=== PATIENT | male | born 1940 | race Caucasian/White ===

== ENCOUNTER 2017-12-29 14:00 | Outpatient (RCR) | payer MEDICARE, OTHER, SELFPAY | END 2018-01-08 14:50 | LOC: CAR 14:00 | PROVIDERS: Visit Provider Internal Medicine Cardiovascular Disease | DX: Z95.2 Presence of prosthetic heart valve (principal) | CPT/HCPCS: 93798 ==

== ENCOUNTER 2018-05-18 12:33 | Emergency (ER) | payer MEDICARE, OTHER, SELFPAY ==
[2018-05-18 12:48] VITALS: BP 131/80; PULSE 74; RESP 16; TEMP 36.6; O2SAT 97; BMI 29.1
--- NOTE | 2018-05-18 13:19 | DI.RAD.S_ITS ---
PROCEDURE: XR KNEE RT 3V INDICATIONS: pain, swelling TECHNIQUE: 3 views of the knee were acquired. COMPARISON: None. FINDINGS: Bones: No fractures or dislocations. No suspicious bony lesions. The femorotibial joint spaces are relatively well-preserved. On the sunrise view, there is moderate to severe lateral patellofemoral joint space narrowing seen. Osteophyte formation can be seen along the margins of the patella. There is lateral subluxation of the patella seen. Soft tissues: There is a moderate to prominent joint effusion. No suspicious soft tissue calcifications. IMPRESSION: Focal patellofemoral joint degenerative change. Moderate joint effusion. Dictated by: Tejinder Clement M.D. on 05/18/2018 at 12:36 Approved by: Tejinder Clement M.D. on 05/18/2018 at 12:36
[2018-05-18 13:52] LABS: Add Manual Diff / Slide Review NO; Basophils Percent Auto 0.6 % (0-2); Eosinophils Percent Auto 4.3 % (2-4); Hematocrit 35.1 % (41-53); Hemoglobin 11.5 g/dL (13.5-17.5); Lymphocytes Percent Auto 23.1 % (25-40); Mean Corpuscular HGB Conc 32.6 % (30-36); Mean Corpuscular Volume 85.7 fL (80-100); Monocytes Percent Auto 12.3 % (3-14); Neutrophils Absolute Auto 2800 /uL (3000-5900); Neutrophils Percent Auto 59.7 % (50-75); Platelet Count 121 X10^3/uL (150-400); Red Cell Distribution Width 15.4 % (11.6-14.8); White Blood Cell Count 4.7 X10^3/uL (4.5-11.0)
[2018-05-18 14:09] LABS: BUN Creatinine Ratio 15.6 (6-22); Blood Urea Nitrogen 14 mg/dL (9-20); Carbon Dioxide 34 mmol/L (22-32); Chloride 98 mmol/L (98-107); Estimated Glomerular Filt Rate > 60.0 mL/min (>60); Glucose 113 mg/dL (80-110); HEMOLYSIS < 15 (0-50); Potassium 4.2 mmol/L (3.4-5.1); Sodium 142 mmol/L (137-145); Uric Acid 5.4 mg/dL (3.5-8.5)
[2018-05-18 14:13] LABS: C-Reactive Protein Quant < 0.5 mg/dL (<1.0)
[2018-05-18 14:27] LABS: Erythrocyte Sedimentation Rate 10 MM/HR (0-15)
--- NOTE | 2018-05-18 15:45 | ED.EXTPRO ---
HPI - Extremity Problem General Chief complaint: Extremity Problem,Nontraumatic Stated complaint: R KNEE SWELLING/PAINFUL Time Seen by Provider: 05/18/18 13:00 Source: patient Mode of arrival: ambulatory Limitations: no limitations History of Present Illness HPI Narrative: 77M nonsmoker presents with R knee pain and swelling in the abscence of injury for the past few days. He denies fever or chills. He takes no blood thinners. Related Data Home Medications Medication Instructions Recorded Confirmed albuterol sulfate [Proventil HFA] 1 puff INH PRN PRN #0 03/22/17 05/18/18 alfuzosin 10 mg PO QPM #0 03/22/17 05/18/18 mesalamine [Pentasa] 1,000 mg PO BID #0 03/24/17 05/18/18 calcium carbonate-vitamin D3 3 tab PO DAILY #0 03/31/17 05/18/18 ascorbic acid (vitamin C) 500 mg PO DAILY 05/18/18 05/18/18 aspirin 81 mg PO DAILY 05/18/18 05/18/18 carvedilol 12.5 mg PO DAILY 05/18/18 05/18/18 carvedilol 25 mg PO QPM 05/18/18 05/18/18 cholecalciferol (vitamin D3) 2,000 unit PO DIRECTED 05/18/18 05/18/18 [Vitamin D3] cyclobenzaprine 10 mg PO PRN PRN 05/18/18 05/18/18 eplerenone 25 mg PO DAILY 05/18/18 05/18/18 ferrous sulfate 325 mg PO BID 05/18/18 05/18/18 finasteride 5 mg PO DAILY 05/18/18 05/18/18 folic acid 1 mg PO DAILY 05/18/18 05/18/18 furosemide 40 mg PO QPM 05/18/18 05/18/18 furosemide 80 mg PO DAILY 05/18/18 05/18/18 loratadine 10 mg PO DAILY 05/18/18 05/18/18 nitroglycerin [Nitrostat] 0.4 mg SUBLINGUAL Q5-15M PRN 05/18/18 05/18/18 omeprazole 20 mg PO DAILY 05/18/18 05/18/18 potassium chloride 20 meq PO DAILY 05/18/18 05/18/18 simvastatin 20 mg PO BID 05/18/18 05/18/18 sodium fluoride-pot nitrate 1 applic DENTAL QPM 05/18/18 05/18/18 tramadol 50 mg PO Q6H 05/18/18 05/18/18 warfarin 7.5 mg PO TUTH 05/18/18 05/18/18 warfarin [Coumadin] 5 mg PO SUMOWEFRSA 05/18/18 05/18/18 Allergies Allergy/AdvReac Type Severity Reaction Status Date / Time ibuprofen Allergy Mild NOT GOOD Verified 05/18/18 12:48 FOR STOMACH BLEEDING iodine Allergy Mild UNKNOWN Verified 05/18/18 12:48 Sulfa (Sulfonamide Allergy Mild BURNED A Verified 05/18/18 12:48 Antibiotics) HOLE THRU INTESTINES thallium-201 Allergy Mild BREAKS OUT Verified 05/18/18 12:48 IN BLOTCHES AND ITCHING warfarin Allergy Mild FEELS LIKE Verified 05/18/18 12:48 CLIMBING THE MURRAY. Review of Systems Review of Systems All systems reviewed & are unremarkable except as noted in HPI and below Constitutional Denies chills, Denies fever(s), Denies lethargy and Denies weakness Eyes Denies change in vision, Denies eye discharge, Denies irritation and Denies loss of vision ENT Ears, Nose, Mouth, and Throat: Denies change in voice, Denies neck pain and Denies sore throat Cardiovascular Denies chest pain, Denies irregular heart rhythm, Denies lightheadedness, Denies palpitations, Denies dyspnea, Denies dyspnea on exertion and Denies orthopnea Respiratory Denies cough, Denies dyspnea, Denies dyspnea on exertion and Denies wheezing Gastrointestinal Gastrointestinal: Denies abdominal pain, Denies change in bowel habits, Denies diarrhea, Denies nausea and Denies vomiting Genitourinary Denies hematuria, Denies flank pain, Denies urinary incontinence and Denies urinary urgency Musculoskeletal Reports joint swelling, Reports limited range of motion and Denies neck pain Integumentary/Breasts Denies pruritus, Denies erythema, Denies rash and Denies wounds Neurologic Denies confusion, Denies loss of vision and Denies weakness Psychiatric Denies anxiety, Denies confusion, Denies depression, Denies homicidal ideation and Denies suicidal ideation Endocrine Denies palpitations Hematologic/Lymphatic Denies easy bruising Allergic/Immunologic Denies wheezing PFSH Social History Smoking Status: Never smoker Exam Narrative Exam Narrative: GEN: AOx3 and in mild distress EYES: Pupils are equal, round, and reactive to light and accommodation. Extraoccular muscles are intact bilaterally. There is no subconjunctival hemorrhage or exudate. CHEST: Lungs are clear to auscultation bilaterally and free of wheezes, rales, or rhonchi. Heart rate is regular rhythm, there are no murmurs, clicks, rubs, or gallops. There is no chest wall tenderness. ABD: Abdomen is soft and nontender. There is no guarding or rebound. Bowel sounds are normal in all 4 quadrants. There is no mass or organomegaly. EXT: Right knee with large effusion, no redness or warmth. Patient has full range of motion at the knee. No obvious sign of injury or ligamentous instability SKIN: Warm, pink, and dry. No erythema or rash Initial Vital Signs Initial Vital Signs: Vital Signs Temperature 97.9 F 05/18/18 12:48 Pulse Rate 74 05/18/18 12:48 Respiratory Rate 16 05/18/18 12:48 Blood Pressure 131/80 05/18/18 12:48 Pulse Oximetry 97 05/18/18 12:48 Procedures Joint Aspiration Joint Asp./Inject. 1: Time Out Performed: No Side of body: right Joint Aspirated: knee Ultrasound Guidance: No Skin Prep: Chlorhexidine Local Anesthetic: lidocaine 1% and bupivacaine 0.5% Amount of anesthesia used (mL): 6 Needle Size Used: 18G Fluid Obtained: bloody Total fluid obtained (mL): 110 Patient Tolerated Procedure: Well Course Orders Ordered: ED Orders 05/18/18 13:19 XR knee RT 3V Stat 05/18/18 13:42 Basic Metabolic Panel Stat C-Reactive Protein Quant Stat Complete Blood Count AUTO DIFF Stat Erythrocyte Sedimentation Rate Stat Uric Acid Stat 05/18/18 15:35 Body Fluid Culture Stat Cell Count w Diff Body Fluid Stat Crystals Body Fluid Stat 05/18/18 16:28 CT LE RT wo con Stat Discontinued Medications Hydrocodone Bitart/Acetaminophen ([place] 5/325) 1 tab PO NOW ONE Stop: 05/18/18 15:55 Last Admin: 05/18/18 16:34 Dose: 1 tab Consultations Consultation #1: case discussed with ortho (Dr. Carmona). Painful, swollen knee without trauma. Hemarthrosis, no blood thinners. He recommends CT to rule out occult fracture Vital Signs - 8 hr 05/18/18 12:48 05/18/18 17:01 Temperature 97.9 F Pulse Rate 74 63 Respiratory Rate 16 16 Blood Pressure 131/80 Blood Pressure [Left Arm] 123/76 Pulse Oximetry 97 95 MDM - Extremity (Nontraumatic) Lab Data Result diagrams: 05/18/18 13:42 05/18/18 13:42 Lab Results 05/18/18 05/18/18 05/18/18 Range/Units 13:42 13:42 15:35 WBC 4.7 (4.5-11.0) X10^3/uL RBC 4.10 L (4.5-5.9) X10^6/uL Hgb 11.5 L (13.5-17.5) g/dL Hct 35.1 L (41-53) % MCV 85.7 (80-100) fL MCH 28.0 (26-34) PG MCHC 32.6 (30-36) % RDW 15.4 H (11.6-14.8) % Plt Count 121 L (150-400) X10^3/uL Neut % (Auto) 59.7 (50-75) % Lymph % (Auto) 23.1 L (25-40) % Piatt % (Auto) 12.3 (3-14) % Eos % (Auto) 4.3 H (2-4) % Baso % (Auto) 0.6 (0-2) % Neut # (Auto) 2800 L (8021-4888) /uL ESR 10 (0-15) MM/HR Sodium 142 (137-145) mmol/L Potassium 4.2 (3.4-5.1) mmol/L Chloride 98 (98-107) mmol/L Carbon Dioxide 34 H (22-32) mmol/L BUN 14 (9-20) mg/dL Creatinine 0.90 (0.66-1.25) mg/dL Estimated GFR > 60.0 (>60) mL/min BUN/Creatinine Ratio 15.6 (6-22) Glucose 113 H (80-110) mg/dL Uric Acid 5.4 (3.5-8.5) mg/dL Calcium 9.0 (8.4-10.2) mg/dL C-Reactive Protein < 0.5 (<1.0) mg/dL Fluid Color Bloody Fluid Appearance Turbid Fluid RBC 5987622 /uL Fld Tot Nucleated Cell 1835 /uL Fluid Polynuclear WBCs 50 % Fluid Mononuclear WBCs 44 % Fluid Eosinophils 6 % Fluid Other Cells 0 % Body Fluid Clot No clots present Imaging Data Knee Xray: Radiologist's impression: [address] [address] XRay Report Signed Patient: Tramaine Medeiros LMR#: [id number] : 9Acct:[id number] Age/Sex: 77 / MDate of Service: 05/18/18 Loc: ED Accession Number: [id number] Procedure: XR knee RT 3V Ordering Provider: Nigel Alvarado D.O. PROCEDURE: XR KNEE RT 3V INDICATIONS: pain, swelling TECHNIQUE: 3 views of the knee were acquired. COMPARISON: None. FINDINGS: Bones: No fractures or dislocations. No suspicious bony lesions. The femorotibial joint spaces are relatively well-preserved. On the sunrise view, there is moderate to severe lateral patellofemoral joint space narrowing seen. Osteophyte formation can be seen along the margins of the patella. There is lateral subluxation of the patella seen. Soft tissues: There is a moderate to prominent joint effusion. No suspicious soft tissue calcifications. IMPRESSION: Focal patellofemoral joint degenerative change. Moderate joint effusion. Dictated by: Tejinder Clement M.D. on 05/18/2018 at 12:36 Approved by: Tejinder Clement M.D. on 05/18/2018 at 12:[address]: Radiologist's impression: [facility] DATE TYPE STATUS AUTHOR Hx 05/18/18 16:28 Ezio Calvo 05/18/18 13:19 Tejinder ClementDestinTramaine L 77, M0 1940 DEP ER, ED - [facility] ED: R13 165.1cm 79.379kg BSA: 1.87m? BMI: 29.1kg/m? Extremity Problem,Nontraumatic Search Chart ibuprofen NOT GOOD FOR STOMACH BLEEDING iodine UNKNOWN Sulfa (Sulfonamide Antibiotics) BURNED A HOLE THRU INTESTINES thallium-201 BREAKS OUT IN BLOTCHES AND ITCHING warfarin FEELS LIKE CLIMBING THE MURRAY. ONSET Today 17:[address] [address] [address] Scan Report Signed Patient: Tramaine Medeiros LMR#: [id number] : 9Acct:[id number] Age/Sex: 77 / MDate of Service: 05/18/18 Loc: ED Accession Number: [id number] Procedure: CT LE RT wo con Ordering Provider: Nigel Alvarado D.O. PROCEDURE: CT LE RT WO CON INDICATIONS: painful swollen R knee, large hemarthrosis, per ortho TECHNIQUE: Noncontrast 1-1.5 mm axial sections acquired from the mid-patella to the proximal tibia, with coronal and sagittal reformats. COMPARISON: [facility], CR, XR KNEE RT 3V, 05/18/2018, 13:23. FINDINGS: Image quality: Diagnostic Bones: There is no acute fracture, dislocation, or suspicious osseous lesion. The bone mineralization is slightly decreased. There are moderate to severe degenerative changes identified involving the right knee, most pronounced within the patellofemoral compartment with areas of bony remodeling, subchondral sclerosis, and degenerative cystic change. Soft tissues: There is a large knee joint effusion, which is noted to contain a small amount of air. 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 Moderate edema about the anterior aspect of the knee is identified. Please not that the ligamentous, tendinous, and cartilaginous structures of the knee are not adequately evaluated on CT. The anterior cruciate ligament may be slightly thickened, but is not adequately evaluated. No soft tissue masses or fluid collections are evident. There is vascular atherosclerosis involving the arteries about the knee. IMPRESSION: 1. Moderate to severe degenerative changes of the right knee without acute fracture evident. 2. Moderate to large knee joint effusion, containing air. If the patient has not had a recent joint injection/aspiration, this may be a sign for infectious synovitis and clinical correlation is recommended. 3. 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 4. Subcutaneous edema about the anterior margin of the knee. Dictated by: Ezio Calvo M.D. on 05/18/2018 at 15:55 Approved by: Ezio Calvo M.D. on 05/18/2018 at 16:00 [facility] Narrative Medical decision making narrative: 77-year-old male presents with painful swollen knee in the absence of an injury. Labs are unremarkable and he has a large bloody effusion with over 100 cc blood removed. Hemarthrosis with suggest ACL or tibial plateau involvement but patient story and exam are not consistent nor is x-ray or CT, keeping in mind neither will demonstrate ACL injury with much accuracy. 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 Let them know you were seen in the Emergency Department and that we ask that you be seen in follow up *Return to ER if you should have any new, worsening or concerning symptoms, such as [increasing pain or bleeding ] Prescriptions: No Action albuterol sulfate [Proventil HFA] 90 MCG/PUFF HFA aerosol inhaler 1 puff INH PRN PRN (Reason: Shortness Of Breath) Qty: 0 RF: 0 alfuzosin 10 MG tablet extended release 24 hr 10 mg PO QPM Qty: 0 RF: 0 mesalamine [Pentasa] 500 MG capsule, extended release 1,000 mg PO BID Qty: 0 RF: 0 calcium carbonate-vitamin D3 500-100 mg-unit Tablet,Chewable 3 tab PO DAILY Qty: 0 RF: 0 warfarin [Coumadin] 5 mg tablet 5 mg PO SUMOWE RF: 0 furosemide 40 MG tablet 80 mg PO DAILY RF: 0 cyclobenzaprine 10 mg Tablet 10 mg PO PRN PRN (Reason: Spasms) RF: 0 furosemide 40 mg Tablet 40 mg PO QPM RF: 0 carvedilol 25 mg Tablet 12.5 mg PO DAILY RF: 0 carvedilol 25 mg Tablet 25 mg PO QPM RF: 0 tramadol 50 mg Tablet 50 mg PO Q6H RF: 0 simvastatin 40 mg Tablet 20 mg PO BID RF: 0 ferrous sulfate 325 mg (65 mg iron) Tablet 325 mg PO BID RF: 0 ascorbic acid (vitamin C) 500 mg Tablet,Chewable 500 mg PO DAILY RF: 0 nitroglycerin [Nitrostat] 0.4 mg Tablet, Sublingual 0.4 mg SUBLINGUAL Q5-15M PRN (Reason: Chest Pain) RF: 0 folic acid 1 mg Tablet 1 mg PO DAILY RF: 0 finasteride 5 mg Tablet 5 mg PO DAILY RF: 0 loratadine 10 mg Tablet 10 mg PO DAILY RF: 0 sodium fluoride-pot nitrate 1.1-5 % Paste 1 applic Dental QPM RF: 0 omeprazole 20 mg Tablet,Delayed Release (Dr/Ec) 20 mg PO DAILY RF: 0 cholecalciferol (vitamin D3) [Vitamin D3] 2,000 unit Capsule 2,000 unit PO DIRECTED RF: 0 potassium chloride 20 mEq Tablet Extended Release 20 meq PO DAILY RF: 0 aspirin 81 MG tablet,delayed release (DR/EC) 81 mg PO DAILY RF: 0 eplerenone 25 mg Tablet 25 mg PO DAILY RF: 0 warfarin 5 mg tablet 7.5 mg PO RUST RF: 0 Referrals: Trinity Carmona MD [Physician] -
--- NOTE | 2018-05-18 15:48 | ED_ITS ---
HPI - Extremity Problem General Chief complaint: Extremity Problem,Nontraumatic Stated complaint: R KNEE SWELLING/PAINFUL Time Seen by Provider: 05/18/18 13:00 Source: patient Mode of arrival: ambulatory Limitations: no limitations History of Present Illness HPI Narrative: 77M nonsmoker presents with R knee pain and swelling in the abscence of injury for the past few days. He denies fever or chills. He takes no blood thinners. Related Data Home Medications Medication Instructions Recorded Confirmed albuterol sulfate [Proventil HFA] 1 puff INH PRN PRN #0 03/22/17 05/18/18 alfuzosin 10 mg PO QPM #0 03/22/17 05/18/18 mesalamine [Pentasa] 1,000 mg PO BID #0 03/24/17 05/18/18 calcium carbonate-vitamin D3 3 tab PO DAILY #0 03/31/17 05/18/18 ascorbic acid (vitamin C) 500 mg PO DAILY 05/18/18 05/18/18 aspirin 81 mg PO DAILY 05/18/18 05/18/18 carvedilol 12.5 mg PO DAILY 05/18/18 05/18/18 carvedilol 25 mg PO QPM 05/18/18 05/18/18 cholecalciferol (vitamin D3) 2,000 unit PO DIRECTED 05/18/18 05/18/18 [Vitamin D3] cyclobenzaprine 10 mg PO PRN PRN 05/18/18 05/18/18 eplerenone 25 mg PO DAILY 05/18/18 05/18/18 ferrous sulfate 325 mg PO BID 05/18/18 05/18/18 finasteride 5 mg PO DAILY 05/18/18 05/18/18 folic acid 1 mg PO DAILY 05/18/18 05/18/18 furosemide 40 mg PO QPM 05/18/18 05/18/18 furosemide 80 mg PO DAILY 05/18/18 05/18/18 loratadine 10 mg PO DAILY 05/18/18 05/18/18 nitroglycerin [Nitrostat] 0.4 mg SUBLINGUAL Q5-15M PRN 05/18/18 05/18/18 omeprazole 20 mg PO DAILY 05/18/18 05/18/18 potassium chloride 20 meq PO DAILY 05/18/18 05/18/18 simvastatin 20 mg PO BID 05/18/18 05/18/18 sodium fluoride-pot nitrate 1 applic DENTAL QPM 05/18/18 05/18/18 tramadol 50 mg PO Q6H 05/18/18 05/18/18 warfarin 7.5 mg PO TUTH 05/18/18 05/18/18 warfarin [Coumadin] 5 mg PO SUMOWEFRSA 05/18/18 05/18/18 Allergies Allergy/AdvReac Type Severity Reaction Status Date / Time ibuprofen Allergy Mild NOT GOOD Verified 05/18/18 12:48 FOR STOMACH BLEEDING iodine Allergy Mild UNKNOWN Verified 05/18/18 12:48 Sulfa (Sulfonamide Allergy Mild BURNED A Verified 05/18/18 12:48 Antibiotics) HOLE THRU INTESTINES thallium-201 Allergy Mild BREAKS OUT Verified 05/18/18 12:48 IN BLOTCHES AND ITCHING warfarin Allergy Mild FEELS LIKE Verified 05/18/18 12:48 CLIMBING THE MURRAY. Review of Systems Review of Systems All systems reviewed & are unremarkable except as noted in HPI and below Constitutional Denies chills, Denies fever(s), Denies lethargy and Denies weakness Eyes Denies change in vision, Denies eye discharge, Denies irritation and Denies loss of vision ENT Ears, Nose, Mouth, and Throat: Denies change in voice, Denies neck pain and Denies sore throat Cardiovascular Denies chest pain, Denies irregular heart rhythm, Denies lightheadedness, Denies palpitations, Denies dyspnea, Denies dyspnea on exertion and Denies orthopnea Respiratory Denies cough, Denies dyspnea, Denies dyspnea on exertion and Denies wheezing Gastrointestinal Gastrointestinal: Denies abdominal pain, Denies change in bowel habits, Denies diarrhea, Denies nausea and Denies vomiting Genitourinary Denies hematuria, Denies flank pain, Denies urinary incontinence and Denies urinary urgency Musculoskeletal Reports joint swelling, Reports limited range of motion and Denies neck pain Integumentary/Breasts Denies pruritus, Denies erythema, Denies rash and Denies wounds Neurologic Denies confusion, Denies loss of vision and Denies weakness Psychiatric Denies anxiety, Denies confusion, Denies depression, Denies homicidal ideation and Denies suicidal ideation Endocrine Denies palpitations Hematologic/Lymphatic Denies easy bruising Allergic/Immunologic Denies wheezing PFSH Social History Smoking Status: Never smoker Exam Narrative Exam Narrative: GEN: AOx3 and in mild distress EYES: Pupils are equal, round, and reactive to light and accommodation. Extraoccular muscles are intact bilaterally. There is no subconjunctival hemorrhage or exudate. CHEST: Lungs are clear to auscultation bilaterally and free of wheezes, rales, or rhonchi. Heart rate is regular rhythm, there are no murmurs, clicks, rubs, or gallops. There is no chest wall tenderness. ABD: Abdomen is soft and nontender. There is no guarding or rebound. Bowel sounds are normal in all 4 quadrants. There is no mass or organomegaly. EXT: Right knee with large effusion, no redness or warmth. Patient has full range of motion at the knee. No obvious sign of injury or ligamentous instability SKIN: Warm, pink, and dry. No erythema or rash Initial Vital Signs Initial Vital Signs: Vital Signs Temperature 97.9 F 05/18/18 12:48 Pulse Rate 74 05/18/18 12:48 Respiratory Rate 16 05/18/18 12:48 Blood Pressure 131/80 05/18/18 12:48 Pulse Oximetry 97 05/18/18 12:48 Procedures Joint Aspiration Joint Asp./Inject. 1: Time Out Performed: No Side of body: right Joint Aspirated: knee Ultrasound Guidance: No Skin Prep: Chlorhexidine Local Anesthetic: lidocaine 1% and bupivacaine 0.5% Amount of anesthesia used (mL): 6 Needle Size Used: 18G Fluid Obtained: bloody Total fluid obtained (mL): 110 Patient Tolerated Procedure: Well Course Orders Ordered: ED Orders 05/18/18 13:19 XR knee RT 3V Stat 05/18/18 13:42 Basic Metabolic Panel Stat C-Reactive Protein Quant Stat Complete Blood Count AUTO DIFF Stat Erythrocyte Sedimentation Rate Stat Uric Acid Stat 05/18/18 15:35 Body Fluid Culture Stat Cell Count w Diff Body Fluid Stat Crystals Body Fluid Stat 05/18/18 16:28 CT LE RT wo con Stat Discontinued Medications Hydrocodone Bitart/Acetaminophen ([place] 5/325) 1 tab PO NOW ONE Stop: 05/18/18 15:55 Last Admin: 05/18/18 16:34 Dose: 1 tab Consultations Consultation #1: case discussed with ortho (Dr. Carmona). Painful, swollen knee without trauma. Hemarthrosis, no blood thinners. He recommends CT to rule out occult fracture Vital Signs - 8 hr 05/18/18 12:48 05/18/18 17:01 Temperature 97.9 F Pulse Rate 74 63 Respiratory Rate 16 16 Blood Pressure 131/80 Blood Pressure [Left Arm] 123/76 Pulse Oximetry 97 95 MDM - Extremity (Nontraumatic) Lab Data Result diagrams: 05/18/18 13:42 05/18/18 13:42 Lab Results 05/18/18 05/18/18 05/18/18 Range/Units 13:42 13:42 15:35 WBC 4.7 (4.5-11.0) X10^3/uL RBC 4.10 L (4.5-5.9) X10^6/uL Hgb 11.5 L (13.5-17.5) g/dL Hct 35.1 L (41-53) % MCV 85.7 (80-100) fL MCH 28.0 (26-34) PG MCHC 32.6 (30-36) % RDW 15.4 H (11.6-14.8) % Plt Count 121 L (150-400) X10^3/uL Neut % (Auto) 59.7 (50-75) % Lymph % (Auto) 23.1 L (25-40) % [place] % (Auto) 12.3 (3-14) % Eos % (Auto) 4.3 H (2-4) % Baso % (Auto) 0.6 (0-2) % Neut # (Auto) 2800 L (9748-5755) /uL ESR 10 (0-15) MM/HR Sodium 142 (137-145) mmol/L Potassium 4.2 (3.4-5.1) mmol/L Chloride 98 (98-107) mmol/L Carbon Dioxide 34 H (22-32) mmol/L BUN 14 (9-20) mg/dL Creatinine 0.90 (0.66-1.25) mg/dL Estimated GFR > 60.0 (>60) mL/min BUN/Creatinine Ratio 15.6 (6-22) Glucose 113 H (80-110) mg/dL Uric Acid 5.4 (3.5-8.5) mg/dL Calcium 9.0 (8.4-10.2) mg/dL C-Reactive Protein < 0.5 (<1.0) mg/dL Fluid Color Bloody Fluid Appearance Turbid Fluid RBC 3075046 /uL Fld Tot Nucleated Cell 1835 /uL Fluid Polynuclear WBCs 50 % Fluid Mononuclear WBCs 44 % Fluid Eosinophils 6 % Fluid Other Cells 0 % Body Fluid Clot No clots present Imaging Data Knee Xray: Radiologist's impression: [address] [address] XRay Report Signed Patient: Tramaine Medeiros LMR#: [id number] : 9Acct:[id number] Age/Sex: 77 / MDate of Service: 05/18/18 Loc: ED Accession Number: [id number] Procedure: XR knee RT 3V Ordering Provider: Nigel Alvarado D.O. PROCEDURE: XR KNEE RT 3V INDICATIONS: pain, swelling TECHNIQUE: 3 views of the knee were acquired. COMPARISON: None. FINDINGS: Bones: No fractures or dislocations. No suspicious bony lesions. The femorotibial joint spaces are relatively well-preserved. On the sunrise view, there is moderate to severe lateral patellofemoral joint space narrowing seen. Osteophyte formation can be seen along the margins of the patella. There is lateral subluxation of the patella seen. Soft tissues: There is a moderate to prominent joint effusion. No suspicious soft tissue calcifications. IMPRESSION: Focal patellofemoral joint degenerative change. Moderate joint effusion. Dictated by: Tejinder Clement M.D. on 05/18/2018 at 12:36 Approved by: Tejinder Clement M.D. on 05/18/2018 at 12:[address]: Radiologist's impression: [facility] DATE TYPE STATUS AUTHOR Hx 05/18/18 16:28 Ezio Calvo 05/18/18 13:19 Tejinder ClementDestinTramaine L 77, M0 1940 DEP ER, ED - [facility] ED: R13 165.1cm 79.379kg BSA: 1.87m? BMI: 29.1kg/m? Extremity Problem,Nontraumatic Search Chart ibuprofen NOT GOOD FOR STOMACH BLEEDING iodine UNKNOWN Sulfa (Sulfonamide Antibiotics) BURNED A HOLE THRU INTESTINES thallium-201 BREAKS OUT IN BLOTCHES AND ITCHING warfarin FEELS LIKE CLIMBING THE MURRAY. ONSET Today 17:[address] [address] [address] Scan Report Signed Patient: Tramaine Medeiros LMR#: [id number] : 9Acct:[id number] Age/Sex: 77 / MDate of Service: 05/18/18 Loc: ED Accession Number: [id number] Procedure: CT LE RT wo con Ordering Provider: Nigel Alvarado D.O. PROCEDURE: CT LE RT WO CON INDICATIONS: painful swollen R knee, large hemarthrosis, per ortho TECHNIQUE: Noncontrast 1-1.5 mm axial sections acquired from the mid-patella to the proximal tibia, with coronal and sagittal reformats. COMPARISON: [facility], CR, XR KNEE RT 3V, 05/18/2018, 13:23. FINDINGS: Image quality: Diagnostic Bones: There is no acute fracture, dislocation, or suspicious osseous lesion. The bone mineralization is slightly decreased. There are moderate to severe degenerative changes identified involving the right knee, most pronounced within the patellofemoral compartment with areas of bony remodeling, subchondral sclerosis, and degenerative cystic change. Soft tissues: There is a large knee joint effusion, which is noted to contain a small amount of air. 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 Moderate edema about the anterior aspect of the knee is identified. Please not that the ligamentous, tendinous, and cartilaginous structures of the knee are not adequately evaluated on CT. The anterior cruciate ligament may be slightly thickened, but is not adequately evaluated. No soft tissue masses or fluid collections are evident. There is vascular atherosclerosis involving the arteries about the knee. IMPRESSION: 1. Moderate to severe degenerative changes of the right knee without acute fracture evident. 2. Moderate to large knee joint effusion, containing air. If the patient has not had a recent joint injection/aspiration, this may be a sign for infectious synovitis and clinical correlation is recommended. 3. 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 4. Subcutaneous edema about the anterior margin of the knee. Dictated by: Ezio Calvo M.D. on 05/18/2018 at 15:55 Approved by: Ezio Calvo M.D. on 05/18/2018 at 16:00 [facility] Narrative Medical decision making narrative: 77-year-old male presents with painful swollen knee in the absence of an injury. Labs are unremarkable and he has a large bloody effusion with over 100 cc blood removed. Hemarthrosis with suggest ACL or tibial plateau involvement but patient story and exam are not consistent nor is x-ray or CT, keeping in mind neither will demonstrate ACL injury with much accuracy. 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 Let them know you were seen in the Emergency Department and that we ask that you be seen in follow up *Return to ER if you should have any new, worsening or concerning symptoms , such as [increasing pain or bleeding ] Prescriptions: No Action albuterol sulfate [Proventil HFA] 90 MCG/PUFF HFA aerosol inhaler 1 puff INH PRN PRN (Reason: Shortness Of Breath) Qty: 0 RF: 0 alfuzosin 10 MG tablet extended release 24 hr 10 mg PO QPM Qty: 0 RF: 0 mesalamine [Pentasa] 500 MG capsule, extended release 1,000 mg PO BID Qty: 0 RF: 0 calcium carbonate-vitamin D3 500-100 mg-unit Tablet,Chewable 3 tab PO DAILY Qty: 0 RF: 0 warfarin [Coumadin] 5 mg tablet 5 mg PO SUMOWE RF: 0 furosemide 40 MG tablet 80 mg PO DAILY RF: 0 cyclobenzaprine 10 mg Tablet 10 mg PO PRN PRN (Reason: Spasms) RF: 0 furosemide 40 mg Tablet 40 mg PO QPM RF: 0 carvedilol 25 mg Tablet 12.5 mg PO DAILY RF: 0 carvedilol 25 mg Tablet 25 mg PO QPM RF: 0 tramadol 50 mg Tablet 50 mg PO Q6H RF: 0 simvastatin 40 mg Tablet 20 mg PO BID RF: 0 ferrous sulfate 325 mg (65 mg iron) Tablet 325 mg PO BID RF: 0 ascorbic acid (vitamin C) 500 mg Tablet,Chewable 500 mg PO DAILY RF: 0 nitroglycerin [Nitrostat] 0.4 mg Tablet, Sublingual 0.4 mg SUBLINGUAL Q5-15M PRN (Reason: Chest Pain) RF: 0 folic acid 1 mg Tablet 1 mg PO DAILY RF: 0 finasteride 5 mg Tablet 5 mg PO DAILY RF: 0 loratadine 10 mg Tablet 10 mg PO DAILY RF: 0 sodium fluoride-pot nitrate 1.1-5 % Paste 1 applic Dental QPM RF: 0 omeprazole 20 mg Tablet,Delayed Release (Dr/Ec) 20 mg PO DAILY RF: 0 cholecalciferol (vitamin D3) [Vitamin D3] 2,000 unit Capsule 2,000 unit PO DIRECTED RF: 0 potassium chloride 20 mEq Tablet Extended Release 20 meq PO DAILY RF: 0 aspirin 81 MG tablet,delayed release (DR/EC) 81 mg PO DAILY RF: 0 eplerenone 25 mg Tablet 25 mg PO DAILY RF: 0 warfarin 5 mg tablet 7.5 mg PO [facility] RF: 0 Referrals: Trinity Carmona MD [Physician] -
[2018-05-18 16:28] LABS: Body Fluid Red Blood Cells 2389458 /uL; Body Fluid Tot Nucleated Cells 1835 /uL
--- NOTE | 2018-05-18 16:28 | DI.CT.S_ITS ---
PROCEDURE: CT LE RT WO CON INDICATIONS: painful swollen R knee, large hemarthrosis, per ortho TECHNIQUE: Noncontrast 1-1.5 mm axial sections acquired from the mid-patella to the proximal tibia, with coronal and sagittal reformats. COMPARISON: [facility], CR, XR KNEE RT 3V, 05/18/2018, 13:23. FINDINGS: Image quality: Diagnostic Bones: There is no acute fracture, dislocation, or suspicious osseous lesion. The bone mineralization is slightly decreased. There are moderate to severe degenerative changes identified involving the right knee, most pronounced within the patellofemoral compartment with areas of bony remodeling, subchondral sclerosis, and degenerative cystic change. Soft tissues: There is a large knee joint effusion, which is noted to contain a small amount of air. 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 Moderate edema about the anterior aspect of the knee is identified. Please not that the ligamentous, tendinous, and cartilaginous structures of the knee are not adequately evaluated on CT. The anterior cruciate ligament may be slightly thickened, but is not adequately evaluated. No soft tissue masses or fluid collections are evident. There is vascular atherosclerosis involving the arteries about the knee. IMPRESSION: 1. Moderate to severe degenerative changes of the right knee without acute fracture evident. 2. Moderate to large knee joint effusion, containing air. If the patient has not had a recent joint injection/aspiration, this may be a sign for infectious synovitis and clinical correlation is recommended. 3. 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 4. Subcutaneous edema about the anterior margin of the knee. Dictated by: Ezio Calvo M.D. on 05/18/2018 at 15:55 Approved by: Ezio Calvo M.D. on 05/18/2018 at 16:00
[2018-05-18] MEDS: HYDROCODONE/ACET 5/325 TABLET 1 TAB PO (16:34)
[2018-05-18 16:52] LABS: Body Fluid Appearance TURBID; Body Fluid Clotted? NO CLOTS PRESENT; Body Fluid Color BLOODY; Eosinophils Body Fluid 6 %; Mononuclear WBC Body Fluid 44 %; Other Cells Body Fluid 0 %; Polynuclear WBC Body Fluid 50 %
[2018-05-18 17:01] VITALS: BP 123/76; PULSE 63; RESP 16; O2SAT 95
== END 2018-05-18 17:53 | disposition home or self-care (01) ==
PROVIDERS: Emergency Provider Emergency Medicine
DX: M71.20 Synovial cyst of popliteal space [Baker], unspecified knee (principal)
CPT/HCPCS: 20610; 36415; 73562; 73700; 80048; 84550; 85025; 85651; 86140; 87070; 87075; 87205; 89051; 89060; 99283; 99284

== ENCOUNTER 2018-05-27 20:26 | Emergency (ER) | payer MEDICARE, OTHER, SELFPAY ==
[2018-05-27 20:34] VITALS: BP 135/83; PULSE 76; RESP 17; TEMP 37; O2SAT 99
--- NOTE | 2018-05-27 20:44 | PC.NURSE ---
Patient reports crawling around on knee looking for his dog this afternoon and re injured his right knee. 10/10 pain increase pain with palpation and movement. Has old bruises from last ER visit where fluid was drained off right knee.
--- NOTE | 2018-05-27 20:48 | ED.LOWEXIN ---
HPI - Extremity Injury (Lower) <Tracey Lopez PA-C - Last Filed: 05/27/18 21:59> General Chief Complaint: Extremity Injury, Lower Stated Complaint: CYST ON HIS RIGHT KNEE Time Seen by Provider: 05/27/18 20:54 Source: patient Mode of arrival: ambulatory Limitations: no limitations and physical limitation History of Present Illness HPI Narrative: This 77 year old male returns to ED due to recurrent R. knee swelling. He states that this was gradually improving (ortho was consulted here and advised outpatient f/u, but pt states he saw his PCP next day who advised this could just be monitored). He states that late this afternoon, his dog got hung up on a cable underneath his RV, so he crawled under on his knees and the knee swelled up more right away. He states that he can move the knee but it is painful. He took his Tramadol at home and not helping sufficiently. He states that he feels like it is starting to cause spasm radiating into the lateral thigh, but denies any pain in the hip or other joints. He states that he takes flexeril at home for spasms and no SEs. Related Data Home Medications Medication Instructions Recorded Confirmed albuterol sulfate [Proventil HFA] 1 puff INH PRN PRN #0 03/22/17 05/18/18 alfuzosin 10 mg PO QPM #0 03/22/17 05/18/18 mesalamine [Pentasa] 1,000 mg PO BID #0 03/24/17 05/18/18 calcium carbonate-vitamin D3 3 tab PO DAILY #0 03/31/17 05/18/18 ascorbic acid (vitamin C) 500 mg PO DAILY 05/18/18 05/18/18 aspirin 81 mg PO DAILY 05/18/18 05/18/18 carvedilol 12.5 mg PO DAILY 05/18/18 05/18/18 carvedilol 25 mg PO QPM 05/18/18 05/18/18 cholecalciferol (vitamin D3) 2,000 unit PO DIRECTED 05/18/18 05/18/18 [Vitamin D3] cyclobenzaprine 10 mg PO PRN PRN 05/18/18 05/18/18 eplerenone 25 mg PO DAILY 05/18/18 05/18/18 ferrous sulfate 325 mg PO BID 05/18/18 05/18/18 finasteride 5 mg PO DAILY 05/18/18 05/18/18 folic acid 1 mg PO DAILY 05/18/18 05/18/18 furosemide 40 mg PO QPM 05/18/18 05/18/18 furosemide 80 mg PO DAILY 05/18/18 05/18/18 loratadine 10 mg PO DAILY 05/18/18 05/18/18 nitroglycerin [Nitrostat] 0.4 mg SUBLINGUAL Q5-15M PRN 05/18/18 05/18/18 omeprazole 20 mg PO DAILY 05/18/18 05/18/18 potassium chloride 20 meq PO DAILY 05/18/18 05/18/18 simvastatin 20 mg PO BID 05/18/18 05/18/18 sodium fluoride-pot nitrate 1 applic DENTAL QPM 05/18/18 05/18/18 tramadol 50 mg PO Q6H 05/18/18 05/18/18 warfarin 7.5 mg PO TUTH 05/18/18 05/18/18 warfarin [Coumadin] 5 mg PO SUMOWEFRSA 05/18/18 05/18/18 Previous Rx's Medication Instructions Recorded oxycodone-acetaminophen [Percocet] 2 tab PO Q6H PRN #10 tab 05/27/18 Allergies Allergy/AdvReac Type Severity Reaction Status Date / Time ibuprofen Allergy Mild NOT GOOD Verified 05/27/18 20:44 FOR STOMACH BLEEDING iodine Allergy Mild UNKNOWN Verified 05/27/18 20:44 Sulfa (Sulfonamide Allergy Mild BURNED A Verified 05/27/18 20:44 Antibiotics) HOLE THRU INTESTINES thallium-201 Allergy Mild BREAKS OUT Verified 05/27/18 20:44 IN BLOTCHES AND ITCHING warfarin Allergy Mild FEELS LIKE Verified 05/27/18 20:44 CLIMBING THE MURRAY. Review of Systems <Tracey Lopez PA-C - Last Filed: 05/27/18 21:59> Review of Systems All systems reviewed & are unremarkable except as noted in HPI and below Exam <Tracey Lopez PA-C - Last Filed: 05/27/18 21:59> Initial Vital Signs Initial Vital Signs: Vital Signs Temperature 98.6 F 05/27/18 20:34 Pulse Rate 76 05/27/18 20:34 Respiratory Rate 17 05/27/18 20:34 Blood Pressure 135/83 05/27/18 20:34 Pulse Oximetry 99 05/27/18 20:34 GENERAL APPEARANCE: Patient sitting comfortably, in no distress. LUNGS: Clear to auscultation bilaterally. HEART: Rate and rhythm regular without murmur, normal S1 and S2, no S3 or S4. MUSCULOSKELETAL: Right knee moderate effusion with tenderness across the joint line and inferior patella, less tender over the superior patellar border. He has slightly reduced flexion to 100?, can fully extend, both with tenderness and significant crepitus. DERMATOLOGIC: Patchy ecchymoses on both sides of the right knee joint line, no erythema or warmth over the joint <Nigel Alvarado DO - Last Filed: 05/27/18 23:12> Initial Vital Signs Initial Vital Signs: Vital Signs Temperature 98.6 F 05/27/18 20:34 Pulse Rate 76 05/27/18 20:34 Respiratory Rate 17 05/27/18 20:34 Blood Pressure 135/83 05/27/18 20:34 Pulse Oximetry 99 05/27/18 20:34 Course <Tracey Lopez PA-C - Last Filed: 05/27/18 21:59> Orders Ordered: ED Orders 05/27/18 20:51 XR knee RT 3V Stat Discontinued Medications Cyclobenzaprine HCl (Flexeril) 10 mg PO NOW ONE Stop: 05/27/18 21:14 Last Admin: 05/27/18 21:24 Dose: 10 mg Oxycodone/Acetaminophen (Percocet 5/325) 1 tab PO NOW ONE Stop: 05/27/18 21:14 Last Admin: 05/27/18 21:24 Dose: 1 tab Oxycodone/Acetaminophen (Endocet 5/325 Prepack) 1 bottle MISC SEEINSTR ONE Stop: 05/27/18 21:50 Last Admin: 05/27/18 21:54 Dose: 1 bottle Vital Signs - 8 hr 05/27/18 20:34 Temperature 98.6 F Pulse Rate 76 Respiratory Rate 17 Blood Pressure 135/83 Pulse Oximetry 99 <Nigel Alvarado DO - Last Filed: 05/27/18 23:12> Orders Ordered: ED Orders 05/27/18 20:51 XR knee RT 3V Stat Discontinued Medications Cyclobenzaprine HCl (Flexeril) 10 mg PO NOW ONE Stop: 05/27/18 21:14 Last Admin: 05/27/18 21:24 Dose: 10 mg Oxycodone/Acetaminophen (Percocet 5/325) 1 tab PO NOW ONE Stop: 05/27/18 21:14 Last Admin: 05/27/18 21:24 Dose: 1 tab Oxycodone/Acetaminophen (Endocet 5/325 Prepack) 1 bottle MISC SEEINSTR ONE Stop: 05/27/18 21:50 Last Admin: 05/27/18 21:54 Dose: 1 bottle Vital Signs - 8 hr 05/27/18 20:34 Temperature 98.6 F Pulse Rate 76 Respiratory Rate 17 Blood Pressure 135/83 Pulse Oximetry 99 MDM - Extremity Injury (Lower) <Tracey Lopez PA-C - Last Filed: 05/27/18 21:59> Imaging Data knee: Radiologist's impression: [address] [address] XRay Report Signed Patient: Tramaine Medeiros LMR#: [id number] : 9Acct:[id number] Age/Sex: 77 / MDate of Service: 05/27/18 Loc: ED Accession Number: [id number] Procedure: XR knee RT 3V Ordering Provider: Tracye Lopez P.A-C PROCEDURE: XR KNEE RT 3V INDICATIONS: right knee pain and swelling TECHNIQUE: 3 views of the knee were acquired. COMPARISON: [facility], CT, CT LE RT WO CON, 05/18/2018, 16:27. [facility], CR, XR KNEE RT 3V, 05/18/2018, 13:23. FINDINGS: Bones: No fractures or dislocations. No suspicious bony lesions. Severe tricompartmental periarticular osteophyte formation. Soft tissues: Moderate knee joint effusion. No suspicious soft tissue calcifications. IMPRESSION: Osteoarthritis. Knee joint effusion. No acute fracture. No osseous lesion. If clinical suspicion and/or symptoms persist, further assessment with repeat plainfilms, or advanced imaging (e.g., CT, MRI, or bone scan) may be helpful for further assessment. Dictated by: Susan Keenan M.D. on 05/27/2018 at 21:03 Approved by: Susan Keenan M.D. on 05/27/2018 at 21:05 Discharge Plan Departure Patient Disposition: Home Clinical Impression: Effusion of knee joint right Discharge Date/Time: 05/27/18 22:15 Interventions: ED Discharge Assessment Last Done: 05/27/18 22:15 Instructions: DI for Knee Effusion Activity Restrictions/Additional Instructions: You have arthritis and fluid in your knee joint, and it is likely that crawling on the hard ground exacerbated this again. This can also cause swelling outside of the knee joint. Since the pain medicine that we gave you here (oxycodone/acetaminophen) seems to be helping more than your tramadol, please continue to take it tonight and tomorrow as needed. I have given you a prescription to fill a few more over the weekend if you need them. If your pain is improved by tomorrow, you can resume taking your tramadol instead. Continue your cyclobenzaprine as needed for muscle spasms. Please wear your compression wrap and rest and elevate the knee. If your swelling is not moving over the weekend, please call Orthopedics on Friday (we had planned for you to follow up with [facility] as they had advised this after you were last seen here). If it is better by then, you can follow up with your PCP as planned. Please return here as we talked about if you have any acutely worsening symptoms or new symptoms such as fever in the interim. Prescriptions: New oxycodone-acetaminophen [Percocet] 5-325 mg tablet 2 tab PO Q6H PRN (Reason: acute knee pain/effusion) Qty: 10 RF: 0 No Action albuterol sulfate [Proventil HFA] 90 MCG/PUFF HFA aerosol inhaler 1 puff INH PRN PRN (Reason: Shortness Of Breath) Qty: 0 RF: 0 alfuzosin 10 MG tablet extended release 24 hr 10 mg PO QPM Qty: 0 RF: 0 mesalamine [Pentasa] 500 MG capsule, extended release 1,000 mg PO BID Qty: 0 RF: 0 calcium carbonate-vitamin D3 500-100 mg-unit Tablet,Chewable 3 tab PO DAILY Qty: 0 RF: 0 warfarin [Coumadin] 5 mg tablet 5 mg PO SUMOWEFRSA RF: 0 furosemide 40 MG tablet 80 mg PO DAILY RF: 0 cyclobenzaprine 10 mg Tablet 10 mg PO PRN PRN (Reason: Spasms) RF: 0 furosemide 40 mg Tablet 40 mg PO QPM RF: 0 carvedilol 25 mg Tablet 12.5 mg PO DAILY RF: 0 carvedilol 25 mg Tablet 25 mg PO QPM RF: 0 tramadol 50 mg Tablet 50 mg PO Q6H RF: 0 simvastatin 40 mg Tablet 20 mg PO BID RF: 0 ferrous sulfate 325 mg (65 mg iron) Tablet 325 mg PO BID RF: 0 ascorbic acid (vitamin C) 500 mg Tablet,Chewable 500 mg PO DAILY RF: 0 nitroglycerin [Nitrostat] 0.4 mg Tablet, Sublingual 0.4 mg SUBLINGUAL Q5-15M PRN (Reason: Chest Pain) RF: 0 folic acid 1 mg Tablet 1 mg PO DAILY RF: 0 finasteride 5 mg Tablet 5 mg PO DAILY RF: 0 loratadine 10 mg Tablet 10 mg PO DAILY RF: 0 sodium fluoride-pot nitrate 1.1-5 % Paste 1 applic Dental QPM RF: 0 omeprazole 20 mg Tablet,Delayed Release (Dr/Ec) 20 mg PO DAILY RF: 0 cholecalciferol (vitamin D3) [Vitamin D3] 2,000 unit Capsule 2,000 unit PO DIRECTED RF: 0 potassium chloride 20 mEq Tablet Extended Release 20 meq PO DAILY RF: 0 aspirin 81 MG tablet,delayed release (DR/EC) 81 mg PO DAILY RF: 0 eplerenone 25 mg Tablet 25 mg PO DAILY RF: 0 warfarin 5 mg tablet 7.5 mg PO TUTH RF: 0 Referrals: [facility] [Provider Group] Barrera Roth MD [Physician] - <Nigel Alvarado DO - Last Filed: 05/27/18 23:12> Cosign ED Attending Davidature Attestation: I was immediately available in the department for consultation. Documentation has been reviewed. I agree with assessment and plan.
--- NOTE | 2018-05-27 20:51 | DI.RAD.S_ITS ---
PROCEDURE: XR KNEE RT 3V INDICATIONS: right knee pain and swelling TECHNIQUE: 3 views of the knee were acquired. COMPARISON: [facility], CT, CT LE RT WO CON, 05/18/2018, 16:27. [facility], CR, XR KNEE RT 3V, 05/18/2018, 13:23. FINDINGS: Bones: No fractures or dislocations. No suspicious bony lesions. Severe tricompartmental periarticular osteophyte formation. Soft tissues: Moderate knee joint effusion. No suspicious soft tissue calcifications. IMPRESSION: Osteoarthritis. Knee joint effusion. No acute fracture. No osseous lesion. If clinical suspicion and/or symptoms persist, further assessment with repeat plainfilms, or advanced imaging (e.g., CT, MRI, or bone scan) may be helpful for further assessment. Dictated by: Susan Keenan M.D. on 05/27/2018 at 21:03 Approved by: Susan Keenan M.D. on 05/27/2018 at 21:05
[2018-05-27] MEDS: OXYCODONE/ACETAMINOPHEN 5/325 TABLET 1 TAB PO (21:24)
[2018-05-27] MEDS: CYCLOBENZAPRINE 10 MG TABLET PO (21:24)
[2018-05-27] MEDS: OXYCODONE/APAP 5/325 PREPACK 1 BOTTLE MISC (21:54)
== END 2018-05-27 22:15 | disposition home or self-care (01) ==
PROVIDERS: Emergency Provider Internal Medicine
DX: M25.461 Effusion, right knee (principal)
CPT/HCPCS: 73562; 99282; 99283

== ENCOUNTER 2018-06-02 15:11 | Emergency (ER) | payer MEDICARE, OTHER, SELFPAY ==
[2018-06-02 15:17] VITALS: BP 96/61; PULSE 82; RESP 20; TEMP 36.7; O2SAT 96
--- NOTE | 2018-06-02 15:26 | DI.US.S_ITS ---
PROCEDURE: US PERIPH VENOUS LOW EXTREM RT INDICATIONS: KNEE PAIN TECHNIQUE: Real-time imaging, as well as color and pulse Doppler interrogation, were performed of the lower extremity deep veins from the inguinal ligament to the popliteal fossa. COMPARISON: None. FINDINGS: The deep veins are normally compressible, and free of intraluminal thrombus. Color and pulse Doppler demonstrate normal phasic intraluminal flow. There is normal augmentation response to distal compression maneuver. IMPRESSION: Negative for deep venous thrombosis. Dictated by: Tejinder Clement M.D. on 06/02/2018 at 15:10 Approved by: Tejinder Clement M.D. on 06/02/2018 at 15:10
--- NOTE | 2018-06-02 17:59 | ED_ITS ---
HPI - Extremity Problem <Samantha CarsonFERNANDA washingtonP-BC - Last Filed: 06/02/18 18:03> General Chief complaint: Extremity Problem,Nontraumatic Stated complaint: sent for US to R/O DVT Time Seen by Provider: 06/02/18 16:35 Source: patient and family Mode of arrival: wheelchair Limitations: no limitations History of Present Illness HPI Narrative: Patient presents with chief complaint of right knee pain and swelling. He was sent by his orthopedic surgeon who is concerned about a DVT. Patient denied shortness of breath, chest pain, fever nausea vomiting diarrhea or any other pain or problems. He states he has a history of a recent knee replacement on that side. He denies any recent trauma. He states Dr. Andersen sent him here for an ultrasound. He states after the ultrasound was finished he was ready to leave. Related Data Home Medications Medication Instructions Recorded Confirmed albuterol sulfate [Proventil HFA] 1 puff INH PRN PRN #0 03/22/17 05/18/18 alfuzosin 10 mg PO QPM #0 03/22/17 05/18/18 mesalamine [Pentasa] 1,000 mg PO BID #0 03/24/17 05/18/18 calcium carbonate-vitamin D3 3 tab PO DAILY #0 03/31/17 05/18/18 ascorbic acid (vitamin C) 500 mg PO DAILY 05/18/18 05/18/18 aspirin 81 mg PO DAILY 05/18/18 05/18/18 carvedilol 12.5 mg PO DAILY 05/18/18 05/18/18 carvedilol 25 mg PO QPM 05/18/18 05/18/18 cholecalciferol (vitamin D3) 2,000 unit PO DIRECTED 05/18/18 05/18/18 [Vitamin D3] cyclobenzaprine 10 mg PO PRN PRN 05/18/18 05/18/18 eplerenone 25 mg PO DAILY 05/18/18 05/18/18 ferrous sulfate 325 mg PO BID 05/18/18 05/18/18 finasteride 5 mg PO DAILY 05/18/18 05/18/18 folic acid 1 mg PO DAILY 05/18/18 05/18/18 furosemide 40 mg PO QPM 05/18/18 05/18/18 furosemide 80 mg PO DAILY 05/18/18 05/18/18 loratadine 10 mg PO DAILY 05/18/18 05/18/18 nitroglycerin [Nitrostat] 0.4 mg SUBLINGUAL Q5-15M PRN 05/18/18 05/18/18 omeprazole 20 mg PO DAILY 05/18/18 05/18/18 potassium chloride 20 meq PO DAILY 05/18/18 05/18/18 simvastatin 20 mg PO BID 05/18/18 05/18/18 sodium fluoride-pot nitrate 1 applic DENTAL QPM 05/18/18 05/18/18 tramadol 50 mg PO Q6H 05/18/18 05/18/18 warfarin 7.5 mg PO TUTH 05/18/18 05/18/18 warfarin [Coumadin] 5 mg PO SUMOWEFRSA 05/18/18 05/18/18 Previous Rx's Medication Instructions Recorded oxycodone-acetaminophen [Percocet] 2 tab PO Q6H PRN #10 tab 05/27/18 Allergies Allergy/AdvReac Type Severity Reaction Status Date / Time ibuprofen Allergy Mild NOT GOOD Verified 05/27/18 20:44 FOR STOMACH BLEEDING iodine Allergy Mild UNKNOWN Verified 05/27/18 20:44 Sulfa (Sulfonamide Allergy Mild BURNED A Verified 05/27/18 20:44 Antibiotics) HOLE THRU INTESTINES thallium-201 Allergy Mild BREAKS OUT Verified 05/27/18 20:44 IN BLOTCHES AND ITCHING warfarin Allergy Mild FEELS LIKE Verified 05/27/18 20:44 CLIMBING THE MURRAY. Review of Systems <KANE Jett-BC - Last Filed: 06/02/18 18:03> Review of Systems GENERAL: Denies chills, fatigue, malaise, fever, sweats. HEENT: Denies sinus pain, ear pain, sore throat, difficulty swallowing, dizziness. RESPIRATORY: Denies dyspnea, cough, wheezing, hemoptysis, sputum. CARDIOVASCULAR: Denies chest pain, palpitations, orthopnea, edema, GASTROINTESTINAL: Denies nausea, vomiting, abdominal pain, diarrhea, constipation, melena. : Denies dysuria, frequency, incontinence, hematuria, urinary retention. MUSCULOSKELETAL: See HPI SKIN: Denies rash, skin lesions, or other NEUROLOGIC: Denies weakness, headache, numbness, change in speech, confusion, seizures, incoordination. PSYCHIATRIC: No concerning psychosocial issues. 12 point review of systems is negative except for those stated above Exam <KANE Jett-ALLAN - Last Filed: 06/02/18 18:03> Narrative Exam Narrative: GENERAL: Elderly gentleman sitting on wheelchair HEAD: Atraumatic. Normocephalic. No temporal or scalp tenderness. EYES: Pupils equal round and reactive. Extraocular motions intact. No scleral icterus. No injection or drainage. ENT: Nose without bleeding, purulent drainage or septal hematoma. Throat without erythema, tonsillar hypertrophy or exudate. Uvula midline. Airway patent. NECK: Trachea midline. No JVD or lymphadenopathy. Supple, nontender, no meningeal signs. CARDIOVASCULAR: Regular rate and rhythm without murmurs, gallops, or rubs. RESPIRATORY: Clear to auscultation. Breath sounds equal bilaterally. No wheezes , rales, or rhonchi. GASTROINTESTINAL: Abdomen soft, non-tender, nondistended. No hepato-splenomegaly , or palpable masses. No guarding. EXTREMITIES: Swelling noted right knee. Patient has good motion right foot and toes. Patient is unwilling to remove his shoes and socks in order to allow me to evaluate pedal pulses. BACK: Nontender without deformity or crepitance. No flank tenderness. NEURO: AOx3. SKIN: Patient is unwilling to remove shoe, socks and pains in order to allow me to evaluate his foot and knee. Initial Vital Signs Initial Vital Signs: Vital Signs Temperature 98.1 F 06/02/18 15:17 Pulse Rate 82 06/02/18 15:17 Respiratory Rate 20 06/02/18 15:17 Blood Pressure 96/61 06/02/18 15:17 Pulse Oximetry 96 06/02/18 15:17 <Angeles Tyler DO - Last Filed: 06/03/18 09:31> Initial Vital Signs Initial Vital Signs: Vital Signs Temperature 98.1 F 06/02/18 15:17 Pulse Rate 82 06/02/18 15:17 Respiratory Rate 20 06/02/18 15:17 Blood Pressure 96/61 06/02/18 15:17 Pulse Oximetry 96 06/02/18 15:17 Course <JUAN Jett - Last Filed: 06/02/18 18:03> Orders Ordered: ED Orders 06/02/18 15:26 US periph venous low extrem rt Stat Vital Signs - 8 hr 06/02/18 15:17 Temperature 98.1 F Pulse Rate 82 Respiratory Rate 20 Blood Pressure 96/61 Pulse Oximetry 96 <Angeles Tyler DO - Last Filed: 06/03/18 09:31> Orders Ordered: ED Orders 06/02/18 15:26 US periph venous low extrem rt Stat Vital Signs - 8 hr 06/02/18 15:17 Temperature 98.1 F Pulse Rate 82 Respiratory Rate 20 Blood Pressure 96/61 Pulse Oximetry 96 MDM - Extremity (Nontraumatic) <KANE Jett-ALLAN - Last Filed: 06/02/18 18:03> Imaging Data Venous US: Radiologist's impression: [address] [address] Ultrasound Report Signed Patient: Tramaine Medeiros LMR#: [id number] : 9Acct:[id number] Age/Sex: 77 / MDate of Service: 06/02/18 Loc: ED Accession Number: [id number] Procedure: US periph venous low extrem rt Ordering Provider: Angeles Tyler D.O. PROCEDURE: US PERIPH VENOUS LOW EXTREM RT INDICATIONS: KNEE PAIN TECHNIQUE: Real-time imaging, as well as color and pulse Doppler interrogation, were performed of the lower extremity deep veins from the inguinal ligament to the popliteal fossa. COMPARISON: None. FINDINGS: The deep veins are normally compressible, and free of intraluminal thrombus. Color and pulse Doppler demonstrate normal phasic intraluminal flow. There is normal augmentation response to distal compression maneuver. IMPRESSION: Negative for deep venous thrombosis. Dictated by: Tejinder Clement M.D. on 06/02/2018 at 15:10 Approved by: Tejinder Clement M.D. on 06/02/2018 at 15:10 [facility] Narrative Medical decision making narrative: Patient is a 77-year-old male presenting with concern for a DVT. Vascular ultrasound ruled out DVT. Exam was limited given patient's unwillingness to allowing me to take off his socks and shoes and allow me to see his knee. Discussed at length return precautions of chest pain shortness of breath her acute concern for DVT. Patient had no questions or concerns upon discharge. Discharge Plan Departure Patient Disposition: Home Clinical Impression: Acute knee pain Discharge Date/Time: 06/02/18 17:25 Interventions: ED Discharge Assessment Last Done: 06/02/18 17:25 Instructions: How To Perform RICE (Rest, Ice, Compress, Elevate), DI for Knee Pain Activity Restrictions/Additional Instructions: Your ultrasound came back normal today. There is no evidence of a blood clot. Please follow-up with primary care provider as well as your orthopedist. Please use conservative measures including rest ice compression elevation. Come back to the emergency department for any acute concerns including shortness of breath or chest pain. Prescriptions: No Action albuterol sulfate [Proventil HFA] 90 MCG/PUFF HFA aerosol inhaler 1 puff INH PRN PRN (Reason: Shortness Of Breath) Qty: 0 RF: 0 alfuzosin 10 MG tablet extended release 24 hr 10 mg PO QPM Qty: 0 RF: 0 mesalamine [Pentasa] 500 MG capsule, extended release 1,000 mg PO BID Qty: 0 RF: 0 calcium carbonate-vitamin D3 500-100 mg-unit Tablet,Chewable 3 tab PO DAILY Qty: 0 RF: 0 warfarin [Coumadin] 5 mg tablet 5 mg PO SUMOWEFR RF: 0 furosemide 40 MG tablet 80 mg PO DAILY RF: 0 cyclobenzaprine 10 mg Tablet 10 mg PO PRN PRN (Reason: Spasms) RF: 0 furosemide 40 mg Tablet 40 mg PO QPM RF: 0 carvedilol 25 mg Tablet 12.5 mg PO DAILY RF: 0 carvedilol 25 mg Tablet 25 mg PO QPM RF: 0 tramadol 50 mg Tablet 50 mg PO Q6H RF: 0 simvastatin 40 mg Tablet 20 mg PO BID RF: 0 ferrous sulfate 325 mg (65 mg iron) Tablet 325 mg PO BID RF: 0 ascorbic acid (vitamin C) 500 mg Tablet,Chewable 500 mg PO DAILY RF: 0 nitroglycerin [Nitrostat] 0.4 mg Tablet, Sublingual 0.4 mg SUBLINGUAL Q5-15M PRN (Reason: Chest Pain) RF: 0 folic acid 1 mg Tablet 1 mg PO DAILY RF: 0 finasteride 5 mg Tablet 5 mg PO DAILY RF: 0 loratadine 10 mg Tablet 10 mg PO DAILY RF: 0 sodium fluoride-pot nitrate 1.1-5 % Paste 1 applic Dental QPM RF: 0 omeprazole 20 mg Tablet,Delayed Release (Dr/Ec) 20 mg PO DAILY RF: 0 cholecalciferol (vitamin D3) [Vitamin D3] 2,000 unit Capsule 2,000 unit PO DIRECTED RF: 0 potassium chloride 20 mEq Tablet Extended Release 20 meq PO DAILY RF: 0 aspirin 81 MG tablet,delayed release (DR/EC) 81 mg PO DAILY RF: 0 eplerenone 25 mg Tablet 25 mg PO DAILY RF: 0 warfarin 5 mg tablet 7.5 mg PO TUTH RF: 0 oxycodone-acetaminophen [Percocet] 5-325 mg tablet 2 tab PO Q6H PRN (Reason: acute knee pain/effusion) Qty: 10 RF: 0 Referrals: Barrera Roth MD [Physician] - Alexis Andersen MD [Physician] - <Angeles Tyler DO - Last Filed: 06/03/18 09:31> Cosign ED Attending Cosignature Attestation: I was immediately available in the department for consultation. Documentation has been reviewed. I agree with assessment and plan.
== END 2018-06-02 17:25 | disposition home or self-care (01) ==
PROVIDERS: Emergency Provider Nurse Practitioner Family
DX: M25.561 Pain in right knee (principal)
CPT/HCPCS: 93971; 99282; 99284

== ENCOUNTER 2018-06-29 22:18 | Emergency (ER) | payer MEDICARE, OTHER, SELFPAY ==
[2018-06-29 22:29] VITALS: BP 130/62; PULSE 87; RESP 18; O2SAT 100; BMI 28.6
--- NOTE | 2018-06-29 23:41 | ED_ITS ---
HPI - Wound/Laceration General Chief Complaint: Wound/Laceration Stated Complaint: left ear bleeding Time Seen by Provider: 06/29/18 23:19 Source: patient Mode of arrival: ambulatory Limitations: no limitations History of Present Illness HPI narrative: This is a 77-year-old male who comes to the emergency department with complaint of bleeding from his left ear. Patient thinks he scratched it with his nail or his hearing aid while he was taking it out. He is on Coumadin. Patient states that his last INR was about a week ago. Patient states that he just can't get the bleeding to stop. He does not really have any pain, no lightheadedness, no chest pain, no shortness of breath. No GI or urinary symptoms. He states that when he does get small cuts or scratches been to wound clinic visit. He is on Coumadin for a mitral valve replacement. Related Data Home Medications Medication Instructions Recorded Confirmed albuterol sulfate [Proventil HFA] 1 puff INH PRN PRN #0 03/22/17 05/18/18 alfuzosin 10 mg PO QPM #0 03/22/17 05/18/18 mesalamine [Pentasa] 1,000 mg PO BID #0 03/24/17 05/18/18 calcium carbonate-vitamin D3 3 tab PO DAILY #0 03/31/17 05/18/18 ascorbic acid (vitamin C) 500 mg PO DAILY 05/18/18 05/18/18 aspirin 81 mg PO DAILY 05/18/18 05/18/18 carvedilol 12.5 mg PO DAILY 05/18/18 05/18/18 carvedilol 25 mg PO QPM 05/18/18 05/18/18 cholecalciferol (vitamin D3) 2,000 unit PO DIRECTED 05/18/18 05/18/18 [Vitamin D3] cyclobenzaprine 10 mg PO PRN PRN 05/18/18 05/18/18 eplerenone 25 mg PO DAILY 05/18/18 05/18/18 ferrous sulfate 325 mg PO BID 05/18/18 05/18/18 finasteride 5 mg PO DAILY 05/18/18 05/18/18 folic acid 1 mg PO DAILY 05/18/18 05/18/18 furosemide 40 mg PO QPM 05/18/18 05/18/18 furosemide 80 mg PO DAILY 05/18/18 05/18/18 loratadine 10 mg PO DAILY 05/18/18 05/18/18 nitroglycerin [Nitrostat] 0.4 mg SUBLINGUAL Q5-15M PRN 05/18/18 05/18/18 omeprazole 20 mg PO DAILY 05/18/18 05/18/18 potassium chloride 20 meq PO DAILY 05/18/18 05/18/18 simvastatin 20 mg PO BID 05/18/18 05/18/18 sodium fluoride-pot nitrate 1 applic DENTAL QPM 05/18/18 05/18/18 tramadol 50 mg PO Q6H 05/18/18 05/18/18 warfarin 7.5 mg PO TUTH 05/18/18 05/18/18 warfarin [Coumadin] 5 mg PO SUMOWEFRSA 05/18/18 05/18/18 warfarin [Coumadin] 06/29/18 Previous Rx's Medication Instructions Recorded oxycodone-acetaminophen [Percocet] 2 tab PO Q6H PRN #10 tab 05/27/18 Allergies Allergy/AdvReac Type Severity Reaction Status Date / Time ibuprofen Allergy Mild NOT GOOD Verified 05/27/18 20:44 FOR STOMACH BLEEDING iodine Allergy Mild UNKNOWN Verified 05/27/18 20:44 Sulfa (Sulfonamide Allergy Mild BURNED A Verified 05/27/18 20:44 Antibiotics) HOLE THRU INTESTINES thallium-201 Allergy Mild BREAKS OUT Verified 05/27/18 20:44 IN BLOTCHES AND ITCHING Review of Systems Review of Systems All systems reviewed & are unremarkable except as noted in HPI and below ENT Ears, Nose, Mouth, and Throat: Reports ear discharge (Bleeding from left ear) and Denies otalgia Hematologic/Lymphatic Reports easy bleeding [facility] Medical History Asthma (Chronic) CHF (congestive heart failure) (Chronic) Pulmonary hypertension (Chronic) Atrial fibrillation (Chronic) Osteoarthritis (Chronic) Surgical History H/O mitral valve replacement (Acute) Social History Smoking Status: Never smoker Exam Narrative Exam Narrative: GEN: well nourished, well appearing elderly male, alert and oriented x 3, patient appears to be in mild distress. HEENT: Atraumatic, pupils are equal round reactive to light, extraocular movements are intact, nares are clear, right TM is clear, no fluid, canal is clear. The left TM able to visualize after clearing blood and clot from the left canal. There is no injury to the TM is intact. Patient appears to have an abrasion or small laceration to the inner canal at the 6:00 position. It is oozing bright red blood. there is no conjunctival pallor. Throat is clear without any exudates, erythema, tonsillar enlargement or uvular deviation HEART: Regular rate and rhythm without murmur, clicks, rubs. No carotid bruits , pulses are equal in upper and lower extremities LUNGS:Lungs clear to auscultation, no wheezes, rales, crackles, chest moves symmetrically MSCL: Non-tender, no muscle atrophy, muscles strength 5/5 upper and lower extremities, full range of motion, normal gait NEURO:CN 2-12 intact, sensation normal Initial Vital Signs Initial Vital Signs: Vital Signs Pulse Rate 87 06/29/18 22:29 Respiratory Rate 18 06/29/18 22:29 Blood Pressure 130/62 06/29/18 22:29 Pulse Oximetry 100 06/29/18 22:29 Course Orders Ordered: ED Orders 06/29/18 23:46 Complete Blood Count AUTO DIFF Stat Prothrombin Time INR Stat Discontinued Medications Cocaine HCl (Cocaine Hcl) 40 mg TOP NOW ONE Stop: 06/30/18 02:23 Vital Signs - 8 hr 06/29/18 22:29 06/30/18 04:16 Pulse Rate 87 82 Respiratory Rate 18 18 Blood Pressure 130/62 128/66 Pulse Oximetry 100 99 MDM - Wound/Laceration Lab Data Attestation: I reviewed the patient's lab results. Result diagrams: 06/29/18 23:46 Lab Results 06/29/18 06/29/18 Range/Units 23:46 23:46 WBC 5.0 (4.5-11.0) X10^3/uL RBC 3.94 L (4.5-5.9) X10^6/uL Hgb 11.1 L (13.5-17.5) g/dL Hct 34.2 L (41-53) % MCV 86.9 (80-100) fL MCH 28.2 (26-34) PG MCHC 32.4 (30-36) % RDW 15.3 H (11.6-14.8) % Plt Count 157 (150-400) X10^3/uL Neut % (Auto) 54.4 (50-75) % Lymph % (Auto) 26.4 (25-40) % [place] % (Auto) 14.7 H (3-14) % Eos % (Auto) 3.5 (2-4) % Baso % (Auto) 1.0 (0-2) % Neut # (Auto) 2700 (4319-2090) /uL PT 41.4 H (10.1-12.7) SECONDS INR 3.5 H (0.9-1.3) MDM Narrative Medical decision making narrative: Patient's hemoglobin and INR Um appear fairly stable. Patient has a mitral valve so his INR is at the upper limit of normal at 3.5 for a patient with a heart valve. Patient and I attempted direct pressure with a TXA soaked Q-tip to the area of laceration. This was unsuccessful we then attempted packing with a 2 x 2 that was rolled up and placed in the canal after being soaked in lidocaine with epinephrine and T x- ray. This was also unsuccessful. I attempted Surgicel in the canal which was also unsuccessful. I spoke with ENT and Dr. Esequiel little. He recommended wax if available and packing the area very tightly. If we are unable to stop the bleeding they would see the patient this morning in the office otherwise patient was to be seen on Friday. We do not have any wax available, used Gel-Foam which I did discuss with Dr. little, packed 3 small pieces of Gel-Foam into the left canal. Patient was able to let me know that he felt some mild pressure on the canal but did not have any pain or discomfort. The canal initially was soaked in Afrin as well as topical cocaine and T x-ray. And then the Gel-Foam was impregnated with cocaine and Afrin while patient laying in sidelying position. After period of observation patient does not appear to be oozing or bleeding anymore. We set patient up for a period of time continue to observe without any further bleeding. Patient is able to ambulate to the bathroom and back without major issue. Patient was given discharge instructions with contact for ENT to follow up on Friday. If he has bleeding he can return to the ER or possibly touch base with ENT by phone to see if they can see him in the office. Patient is comfortable with the plan. His Coumadin is in a therapeutic range so was not instructed to change his dosage at this time. Discharge Plan Departure Patient Disposition: Home Clinical Impression: Laceration of ear canal Discharge Date/Time: 06/30/18 04:17 Interventions: ED Discharge Assessment Last Done: 06/30/18 04:16 Activity Restrictions/Additional Instructions: Follow up with ENT for recheck, removal of packing and treatment of your bleeding wound. If you have continued bleeding/oozing you may try the ENT phone number first, they may be able to meet you in the office to treat your ear. If this is not successful or bleeding is worsening return to ER. Return to ER for worsening bleeding, lightheadedness, chest pain, shortness of breath, facial swelling, severe headaches, throat/tongue swelling or other concerning symptoms. Prescriptions: No Action albuterol sulfate [Proventil HFA] 90 MCG/PUFF HFA aerosol inhaler 1 puff INH PRN PRN (Reason: Shortness Of Breath) Qty: 0 RF: 0 alfuzosin 10 MG tablet extended release 24 hr 10 mg PO QPM Qty: 0 RF: 0 mesalamine [Pentasa] 500 MG capsule, extended release 1,000 mg PO BID Qty: 0 RF: 0 calcium carbonate-vitamin D3 500-100 mg-unit Tablet,Chewable 3 tab PO DAILY Qty: 0 RF: 0 warfarin [Coumadin] 5 mg tablet 5 mg PO SUMOWE RF: 0 furosemide 40 MG tablet 80 mg PO DAILY RF: 0 cyclobenzaprine 10 mg Tablet 10 mg PO PRN PRN (Reason: Spasms) RF: 0 furosemide 40 mg Tablet 40 mg PO QPM RF: 0 carvedilol 25 mg Tablet 12.5 mg PO DAILY RF: 0 carvedilol 25 mg Tablet 25 mg PO QPM RF: 0 tramadol 50 mg Tablet 50 mg PO Q6H RF: 0 simvastatin 40 mg Tablet 20 mg PO BID RF: 0 ferrous sulfate 325 mg (65 mg iron) Tablet 325 mg PO BID RF: 0 ascorbic acid (vitamin C) 500 mg Tablet,Chewable 500 mg PO DAILY RF: 0 nitroglycerin [Nitrostat] 0.4 mg Tablet, Sublingual 0.4 mg SUBLINGUAL Q5-15M PRN (Reason: Chest Pain) RF: 0 folic acid 1 mg Tablet 1 mg PO DAILY RF: 0 finasteride 5 mg Tablet 5 mg PO DAILY RF: 0 loratadine 10 mg Tablet 10 mg PO DAILY RF: 0 sodium fluoride-pot nitrate 1.1-5 % Paste 1 applic Dental QPM RF: 0 omeprazole 20 mg Tablet,Delayed Release (Dr/Ec) 20 mg PO DAILY RF: 0 cholecalciferol (vitamin D3) [Vitamin D3] 2,000 unit Capsule 2,000 unit PO DIRECTED RF: 0 potassium chloride 20 mEq Tablet Extended Release 20 meq PO DAILY RF: 0 aspirin 81 MG tablet,delayed release (DR/EC) 81 mg PO DAILY RF: 0 eplerenone 25 mg Tablet 25 mg PO DAILY RF: 0 warfarin 5 mg tablet 7.5 mg PO TUTH RF: 0 oxycodone-acetaminophen [Percocet] 5-325 mg tablet 2 tab PO Q6H PRN (Reason: acute knee pain/effusion) Qty: 10 RF: 0 warfarin [Coumadin] 5 mg tablet RF: 0 Referrals: Esequiel Little MD [Physician] -
--- NOTE | 2018-06-29 23:49 | PC.NURSE ---
abrasion in left ear canal, on thinners, attempted to stop with bandage and direct pressure. Continues to bleed out of ear.
--- NOTE | 2018-06-29 23:50 | PC.NURSE ---
Provider applied TXA to a gauze and packed left ear with it. Pt is waiting to see if the TXA worked. Instructed to sit for 30 min to ensure bleeding has stopped. Lab did a blood draw to check CBC and coags.
--- NOTE | 2018-06-29 23:52 | PC.NURSE ---
drawn by lab
[2018-06-29 23:55] LABS: Add Manual Diff / Slide Review NO; Eosinophils Percent Auto 3.5 % (2-4); Hematocrit 34.2 % (41-53); Hemoglobin 11.1 g/dL (13.5-17.5); Lymphocytes Percent Auto 26.4 % (25-40); Mean Corpuscular HGB Conc 32.4 % (30-36); Mean Corpuscular Hemoglobin 28.2 PG (26-34); Mean Corpuscular Volume 86.9 fL (80-100); Monocytes Percent Auto 14.7 % (3-14); Neutrophils Absolute Auto 2700 /uL (1500-7000); Neutrophils Percent Auto 54.4 % (50-75); Platelet Count 157 X10^3/uL (150-400); Red Blood Cell Count 3.94 X10^6/uL (4.5-5.9); Red Cell Distribution Width 15.3 % (11.6-14.8)
[2018-06-30 00:02] LABS: INR 3.5 (0.9-1.3); Prothrombin Time 41.4 SECONDS (10.1-12.7)
--- NOTE | 2018-06-30 03:48 | PC.NURSE ---
Dr Galloway attempted multiple times to stop the bleeding in L ear canal with cotton/gauze, surgiform soaked in lido w/epi, cocaine, TXA to stopped the bleeding with pressure. Pt tolerated well.
[2018-06-30 04:16] VITALS: BP 128/66; PULSE 82; RESP 18; O2SAT 99
== END 2018-06-30 04:17 | disposition home or self-care (01) ==
PROVIDERS: Emergency Provider Emergency Medicine
DX: S01.312A Laceration without foreign body of left ear, initial encounter (principal)
CPT/HCPCS: 36415; 85025; 85610; 99283

== ENCOUNTER 2018-06-30 06:18 | Emergency (ER) | payer MEDICARE, OTHER, SELFPAY ==
[2018-06-30 06:28] VITALS: BP 124/82; PULSE 78; RESP 16; TEMP 36.3; O2SAT 100
--- NOTE | 2018-06-30 06:39 | ED_ITS ---
HPI - Ear Problem <Samantha Galloway DO - Last Filed: 07/02/18 07:05> General Chief complaint: Ear Stated complaint: Left ear still bleeding Time Seen by Provider: 06/30/18 06:36 Source: patient Mode of arrival: ambulatory Limitations: no limitations History of Present Illness HPI Narrative: Patient returns with very mild oozing from the ear. Gelfoam is in place. Patient states he made it, he made it into his pajamas got into bed and then noticed a little bit oozing. He return to the emergency department. Lab work did show an elevated INR. Patient is denying any other symptoms. Related Data Home Medications Medication Instructions Recorded Confirmed albuterol sulfate [Proventil HFA] 1 puff INH PRN PRN #0 03/22/17 05/18/18 alfuzosin 10 mg PO QPM #0 03/22/17 05/18/18 mesalamine [Pentasa] 1,000 mg PO BID #0 03/24/17 05/18/18 calcium carbonate-vitamin D3 3 tab PO DAILY #0 03/31/17 05/18/18 ascorbic acid (vitamin C) 500 mg PO DAILY 05/18/18 05/18/18 aspirin 81 mg PO DAILY 05/18/18 05/18/18 carvedilol 12.5 mg PO DAILY 05/18/18 05/18/18 carvedilol 25 mg PO QPM 05/18/18 05/18/18 cholecalciferol (vitamin D3) 2,000 unit PO DIRECTED 05/18/18 05/18/18 [Vitamin D3] cyclobenzaprine 10 mg PO PRN PRN 05/18/18 05/18/18 eplerenone 25 mg PO DAILY 05/18/18 05/18/18 ferrous sulfate 325 mg PO BID 05/18/18 05/18/18 finasteride 5 mg PO DAILY 05/18/18 05/18/18 folic acid 1 mg PO DAILY 05/18/18 05/18/18 furosemide 40 mg PO QPM 05/18/18 05/18/18 furosemide 80 mg PO DAILY 05/18/18 05/18/18 loratadine 10 mg PO DAILY 05/18/18 05/18/18 nitroglycerin [Nitrostat] 0.4 mg SUBLINGUAL Q5-15M PRN 05/18/18 05/18/18 omeprazole 20 mg PO DAILY 05/18/18 05/18/18 potassium chloride 20 meq PO DAILY 05/18/18 05/18/18 simvastatin 20 mg PO BID 05/18/18 05/18/18 sodium fluoride-pot nitrate 1 applic DENTAL QPM 05/18/18 05/18/18 tramadol 50 mg PO Q6H 05/18/18 05/18/18 warfarin 7.5 mg PO TUTH 05/18/18 05/18/18 warfarin [Coumadin] 5 mg PO SUMOWEFRSA 05/18/18 05/18/18 warfarin [Coumadin] 06/29/18 Previous Rx's Medication Instructions Recorded oxycodone-acetaminophen [Percocet] 2 tab PO Q6H PRN #10 tab 05/27/18 Allergies Allergy/AdvReac Type Severity Reaction Status Date / Time ibuprofen Allergy Mild NOT GOOD Verified 05/27/18 20:44 FOR STOMACH BLEEDING iodine Allergy Mild UNKNOWN Verified 05/27/18 20:44 Sulfa (Sulfonamide Allergy Mild BURNED A Verified 05/27/18 20:44 Antibiotics) HOLE THRU INTESTINES thallium-201 Allergy Mild BREAKS OUT Verified 05/27/18 20:44 IN BLOTCHES AND ITCHING Review of Systems <Samantha Galloway DO - Last Filed: 07/02/18 07:05> Review of Systems All systems reviewed & are unremarkable except as noted in HPI and below ENT Ears, Nose, Mouth, and Throat: Reports ear discharge (bleeding left ear) and Denies otalgia Exam <Samantha Galloway DO - Last Filed: 07/02/18 07:05> Narrative Exam Narrative: GEN: well nourished, well appearing elderly male, alert and oriented x 3, patient appears to be in no acute distress. HEENT: Atraumatic, pupils are equal round reactive to light, extraocular movements are intact, left ear packed very minimal ooze of blood. After removal of packing bleeding seems decreased, no active bleed at this time noted. Patient TM is intact, no erythema, no bulge. MSCL: full range of motion, normal gait NEURO:CN 2-12 intact, sensation normal Initial Vital Signs Initial Vital Signs: Vital Signs Temperature 97.4 F L 06/30/18 06:28 Pulse Rate 78 06/30/18 06:28 Respiratory Rate 16 06/30/18 06:28 Blood Pressure 124/82 06/30/18 06:28 Pulse Oximetry 100 06/30/18 06:28 <Angeles Tyler, DO - Last Filed: 06/30/18 09:19> Initial Vital Signs Initial Vital Signs: Vital Signs Temperature 97.4 F L 06/30/18 06:28 Pulse Rate 78 06/30/18 06:28 Respiratory Rate 16 06/30/18 06:28 Blood Pressure 124/82 06/30/18 06:28 Pulse Oximetry 100 06/30/18 06:28 Course <Samantha Galloway DO - Last Filed: 07/02/18 07:05> Vital Signs - 8 hr 06/30/18 06:28 06/30/18 08:28 Temperature 97.4 F L Pulse Rate 78 81 Respiratory Rate 16 18 Blood Pressure 124/82 125/75 Pulse Oximetry 100 98 <Angeles Tyler, DO - Last Filed: 06/30/18 09:19> Vital Signs - 8 hr 06/30/18 06:28 06/30/18 08:28 Temperature 97.4 F L Pulse Rate 78 81 Respiratory Rate 16 18 Blood Pressure 124/82 125/75 Pulse Oximetry 100 98 Medical Decision Making <Samantha Galloway, DO - Last Filed: 07/02/18 07:05> MDM Narrative Medical decision making narrative: Spoke with Dr. Mejia from ENT, he suggest vaseline gauze packed tightly. If do not have this available we can try gauze impregnated with bacitracin. He recommends patient does not necessarily recline completely. We also discussed that he may need to have anticoagulation reversed although he does have a mitral valves would be prefer a bowl to not to stop his anticoagulation. He did give the number for [phone] for the patient to call if he continues to have oozing or bleeding today they will see him in the office, if the bleeding has stopped they will see him tomorrow in the office but he should call in the morning for an appointment. Bleeding was worse with vasline guaze. Repacked with gelfoam. Spoke with Dr. Esequiel Uribe as there was a shift change for train control electronic technician ENT at 0700. He asked that we reverse INR and if continued issues patient to call and they will see in office today. Discussed at length with patient, he prefers not to reverse INR (has a mitral ring prosthesis) and I agree with him. Bleeding does seem to have stopped with gel foam. Discussed will plan for watchful waiting, if continues to bleed will do partial reversal with 2.5mg oral Vitamin K to bring INR down from 3.5. Signed out to Dr. Tyler for final disposition. <Angeles Tyler, DO - Last Filed: 06/30/18 09:19> MDM Narrative Medical decision making narrative: 8:00 a.m. I have taken over from hourly shift manager provider. The patient's bleeding seems to be controlled with Gelfoam. He feels ready and able to go home Discharge Plan Departure Patient Disposition: Home Clinical Impression: Laceration of left ear canal Discharge Date/Time: 06/30/18 08:28 Interventions: ED Discharge Assessment Last Done: 06/30/18 08:28 Activity Restrictions/Additional Instructions: Follow up with ENT. If any continued oozing/bleeding today call [phone] and speak with the train control electronic technician physician about being seen in the office today. If bleeding is controlled, call first thing tomorrow morning for an appointment for removal and recheck. Hold your coumadin dose today. Return to ER for fevers, worsening symptoms, increasing bleeding, pain the ear or facial pain/swelling or other new or concerning symptoms. Prescriptions: No Action albuterol sulfate [Proventil HFA] 90 MCG/PUFF HFA aerosol inhaler 1 puff INH PRN PRN (Reason: Shortness Of Breath) Qty: 0 RF: 0 alfuzosin 10 MG tablet extended release 24 hr 10 mg PO QPM Qty: 0 RF: 0 mesalamine [Pentasa] 500 MG capsule, extended release 1,000 mg PO BID Qty: 0 RF: 0 calcium carbonate-vitamin D3 500-100 mg-unit Tablet,Chewable 3 tab PO DAILY Qty: 0 RF: 0 warfarin [Coumadin] 5 mg tablet 5 mg PO SUMOWEFR RF: 0 furosemide 40 MG tablet 80 mg PO DAILY RF: 0 cyclobenzaprine 10 mg Tablet 10 mg PO PRN PRN (Reason: Spasms) RF: 0 furosemide 40 mg Tablet 40 mg PO QPM RF: 0 carvedilol 25 mg Tablet 12.5 mg PO DAILY RF: 0 carvedilol 25 mg Tablet 25 mg PO QPM RF: 0 tramadol 50 mg Tablet 50 mg PO Q6H RF: 0 simvastatin 40 mg Tablet 20 mg PO BID RF: 0 ferrous sulfate 325 mg (65 mg iron) Tablet 325 mg PO BID RF: 0 ascorbic acid (vitamin C) 500 mg Tablet,Chewable 500 mg PO DAILY RF: 0 nitroglycerin [Nitrostat] 0.4 mg Tablet, Sublingual 0.4 mg SUBLINGUAL Q5-15M PRN (Reason: Chest Pain) RF: 0 folic acid 1 mg Tablet 1 mg PO DAILY RF: 0 finasteride 5 mg Tablet 5 mg PO DAILY RF: 0 loratadine 10 mg Tablet 10 mg PO DAILY RF: 0 sodium fluoride-pot nitrate 1.1-5 % Paste 1 applic Dental QPM RF: 0 omeprazole 20 mg Tablet,Delayed Release (Dr/Ec) 20 mg PO DAILY RF: 0 cholecalciferol (vitamin D3) [Vitamin D3] 2,000 unit Capsule 2,000 unit PO DIRECTED RF: 0 potassium chloride 20 mEq Tablet Extended Release 20 meq PO DAILY RF: 0 aspirin 81 MG tablet,delayed release (DR/EC) 81 mg PO DAILY RF: 0 eplerenone 25 mg Tablet 25 mg PO DAILY RF: 0 warfarin 5 mg tablet 7.5 mg PO TUTH RF: 0 oxycodone-acetaminophen [Percocet] 5-325 mg tablet 2 tab PO Q6H PRN (Reason: acute knee pain/effusion) Qty: 10 RF: 0 warfarin [Coumadin] 5 mg tablet RF: 0 Referrals: Esequiel Mejia MD [Physician] - Esequiel Uribe MD [Physician] -
--- NOTE | 2018-06-30 06:51 | PC.NURSE ---
Old packed dressing removed and large clot noted. L ear canal gently packed with vaseline gauze and pt tolerated well. Will be monitoring bleeding for next 20+ minutes.
--- NOTE | 2018-06-30 07:08 | PC.NURSE ---
Pt called to inform that his L ear canal bleeding with the vaseline packing. Removed the packing and Dr Galloway packed with surgiform dressing into L ear canal.
--- NOTE | 2018-06-30 08:10 | PC.NURSE ---
Gave breakfast tray, grape juice and tea to patient
[2018-06-30 08:28] VITALS: BP 125/75; PULSE 81; RESP 18; O2SAT 98
== END 2018-06-30 08:28 | disposition home or self-care (01) ==
PROVIDERS: Emergency Provider Emergency Medicine
DX: S01.312A Laceration without foreign body of left ear, initial encounter (principal)
CPT/HCPCS: 99283

== ENCOUNTER → 2018-10-16 14:35 | Outpatient (CLI) | payer MEDICARE, OTHER, SELFPAY ==
[2018-10-16 15:20] LABS: Hematocrit 34.2 % (41-53); Hemoglobin 11.3 g/dL (13.5-17.5); Mean Corpuscular HGB Conc 33.1 % (30-36); Mean Corpuscular Hemoglobin 28.4 PG (26-34); Mean Corpuscular Volume 85.8 fL (80-100); Platelet Count 133 X10^3/uL (150-400); Red Blood Cell Count 3.99 X10^6/uL (4.5-5.9); Red Cell Distribution Width 14.7 % (11.6-14.8); White Blood Cell Count 4.7 X10^3/uL (4.5-11.0)
[2018-10-16 16:46] LABS: Alanine Aminotransferase 23 IU/L (21-72); Albumin 3.6 g/dL (3.5-5.0); Albumin Globulin Ratio 1.5 (1.0-2.8); Alkaline Phosphatase 73 U/L (38-126); Aspartate Aminotransferase 21 IU/L (17-59); BUN Creatinine Ratio 23.3 (6-22); Bilirubin Total 0.4 mg/dL (0.2-1.3); Blood Urea Nitrogen 21 mg/dL (9-20); Calcium 8.9 mg/dL (8.4-10.2); Carbon Dioxide 30 mmol/L (22-32); Chloride 97 mmol/L (98-107); Estimated Glomerular Filt Rate > 60.0 mL/min (>60); Globulin 2.4 g/dL (1.7-4.1); Glucose 80 mg/dL (80-110); HEMOLYSIS < 15 (0-50); Potassium 4.2 mmol/L (3.4-5.1); Sodium 138 mmol/L (137-145)
== END ==
PROVIDERS: Visit Provider Nurse Practitioner Family
DX: I42.9 Cardiomyopathy, unspecified (principal)
CPT/HCPCS: 36415; 80053; 85027

== ENCOUNTER 2019-06-24 22:33 | Emergency (ER) | payer MEDICARE, OTHER, SELFPAY ==
[2019-06-24 22:39] VITALS: BP 133/67; PULSE 83; RESP 18; TEMP 36.8; O2SAT 98; BMI 30.5
--- NOTE | 2019-06-24 22:50 | DI.RAD.S_ITS ---
PROCEDURE: XR KNEE RT 3V INDICATIONS: knee pain and swelling TECHNIQUE: Knee views of the knee were acquired. COMPARISON: [facility], , XR KNEE RT 3V, 05/27/2018, 20:54. [facility], CR, XR KNEE RT 3V, 05/18/2018, 13:23. FINDINGS: Bones: No fractures or dislocations. No suspicious bony lesions. Soft tissues: Large suprapatellar joint effusion. No suspicious soft tissue calcifications. IMPRESSION: Large suprapatellar joint effusion, stable. 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 No definite trauma seen. An effusion of this size could represent evidence of infection. Findings called to the emergency room physician at time of this dictation, Dr. Galloway. Dictated by: Ronnie Hatch M.D. on 06/25/2019 at 8:32 Approved by: Ronnie Hatch M.D. on 06/25/2019 at 8:34
--- NOTE | 2019-06-24 22:51 | ED.EXTPRO ---
HPI - Extremity Problem General Chief complaint: Extremity Problem,Nontraumatic Stated complaint: R knee pain Time Seen by Provider: 06/24/19 22:43 Source: patient and EMS Mode of arrival: EMS Limitations: no limitations History of Present Illness HPI Narrative: 78-year-old male here for evaluation of swelling and pain to his right knee. He states that it started earlier this evening. Has had this in the past where he has had to have fluid drained off his knee. There is no specific trauma to his knee. States that since the last time this happened he has seen orthopedics who drained even more fluid off his knee and did give him a steroid injection. He is on Coumadin. Related Data Home Medications Medication Instructions Recorded Confirmed albuterol sulfate [Proventil HFA] 1 puff INH PRN PRN #0 03/22/17 05/18/18 alfuzosin 10 mg PO QPM #0 03/22/17 05/18/18 mesalamine [Pentasa] 1,000 mg PO BID #0 03/24/17 05/18/18 calcium carbonate-vitamin D3 3 tab PO DAILY #0 03/31/17 05/18/18 ascorbic acid (vitamin C) 500 mg PO DAILY 05/18/18 05/18/18 aspirin 81 mg PO DAILY 05/18/18 05/18/18 carvedilol 12.5 mg PO DAILY 05/18/18 05/18/18 carvedilol 25 mg PO QPM 05/18/18 05/18/18 cholecalciferol (vitamin D3) 2,000 unit PO DIRECTED 05/18/18 05/18/18 [Vitamin D3] cyclobenzaprine 10 mg PO PRN PRN 05/18/18 05/18/18 eplerenone 25 mg PO DAILY 05/18/18 05/18/18 ferrous sulfate 325 mg PO BID 05/18/18 05/18/18 finasteride 5 mg PO DAILY 05/18/18 05/18/18 folic acid 1 mg PO DAILY 05/18/18 05/18/18 furosemide 40 mg PO QPM 05/18/18 05/18/18 furosemide 80 mg PO DAILY 05/18/18 05/18/18 loratadine 10 mg PO DAILY 05/18/18 05/18/18 nitroglycerin [Nitrostat] 0.4 mg SUBLINGUAL Q5-15M PRN 05/18/18 05/18/18 omeprazole 20 mg PO DAILY 05/18/18 05/18/18 potassium chloride 20 meq PO DAILY 05/18/18 05/18/18 simvastatin 20 mg PO BID 05/18/18 05/18/18 sodium fluoride-pot nitrate 1 applic DENTAL QPM 05/18/18 05/18/18 tramadol 50 mg PO Q6H 05/18/18 05/18/18 warfarin 7.5 mg PO TUTH 05/18/18 05/18/18 warfarin [Coumadin] 5 mg PO SUMOWEFRSA 05/18/18 05/18/18 warfarin [Coumadin] 06/29/18 Previous Rx's Medication Instructions Recorded oxycodone-acetaminophen [Percocet] 2 tab PO Q6H PRN #10 tab 05/27/18 Allergies Allergy/AdvReac Type Severity Reaction Status Date / Time ibuprofen Allergy Mild NOT GOOD Verified 05/27/18 20:44 FOR STOMACH BLEEDING iodine Allergy Mild UNKNOWN Verified 05/27/18 20:44 Sulfa (Sulfonamide Allergy Mild BURNED A Verified 05/27/18 20:44 Antibiotics) HOLE THRU INTESTINES thallium-201 Allergy Mild BREAKS OUT Verified 05/27/18 20:44 IN BLOTCHES AND ITCHING Review of Systems Constitutional Constitutional: Denies fever(s) Cardiovascular Cardiovascular: Denies chest pain and Denies dyspnea Respiratory Respiratory: Denies dyspnea Musculoskeletal Comments: Right knee pain and swelling Integumentary/Breasts Skin/Breast: Denies lesions and Denies rash Neurologic Neurologic: Denies behavioral changes Psychiatric Psychiatric: Denies behavioral changes Hematologic/Lymphatic Comments: On Coumadin Patient History Medical History Asthma (Chronic) Atrial fibrillation (Chronic) CHF (congestive heart failure) (Chronic) Osteoarthritis (Chronic) Pulmonary hypertension (Chronic) Social History Smoking Status: Never smoker Smoking Status: Never smoker alcohol intake frequency: 0-2 drinks per day Substance Use Type: does not use Exam Initial Vital Signs Initial Vital Signs: Vital Signs Temperature 98.3 F 06/24/19 22:39 Pulse Rate 83 06/24/19 22:39 Respiratory Rate 18 06/24/19 22:39 Blood Pressure 133/67 06/24/19 22:39 Pulse Oximetry 98 06/24/19 22:39 Const General: cooperative and comfortable Resp Effort & Inspection: normal respiratory effort Cardio Rate: regular rate Rhythm: regular rhythm Skin Lesions: no lesions Rashes: no rashes Neuro General: alert and awake Cognition: normal cognition Speech: speech normal Extrem Other: Patient with tenderness to palpation throughout the right knee with an obvious effusion. Psych Appearance: grossly normal and well kempt Procedures Joint Aspiration Joint Asp./Inject. 1: Time Out Performed: Yes Side of body: right Joint Aspirated: knee Ultrasound Guidance: No Skin Prep: Povidone-Iodine1% Local Anesthetic: lidocaine 1% Amount of anesthesia used (mL): 4 Needle Size Used: 18G Fluid Obtained: bloody Total fluid obtained (mL): 80 Patient Tolerated Procedure: Well and No complications Complications: none Course Orders Ordered: ED Orders 06/24/19 22:50 XR knee RT 3V Stat 06/24/19 23:37 EKG-12 Lead Stat 06/25/19 00:15 Prothrombin Time INR Stat Discontinued Medications Acetaminophen (Tylenol) 650 mg PO NOW ONE Stop: 06/24/19 22:53 Last Admin: 06/24/19 22:57 Dose: 650 mg Documented by: KBROTEM Lidocaine HCl (Xylocaine 1% (Pf)) 4 ml INJ NOW ONE Stop: 06/24/19 23:50 Last Admin: 06/25/19 00:05 Dose: 4 ml Documented by: [email or web address] Vital Signs Vital signs: Vital Signs - 8 hr 06/24/19 22:39 06/25/19 00:52 Temperature 98.3 F Pulse Rate 83 59 L Respiratory Rate 18 19 Blood Pressure 133/67 125/77 Pulse Oximetry 98 99 MDM - Extremity (Nontraumatic) Lab Data Labs: Lab Results 06/25/19 Range/Units 00:15 PT 23.6 H (10.1-12.7) SECONDS INR 2.0 H (0.9-1.3) Imaging Data Knee x-ray: Attestation: I personally reviewed and interpreted this imaging study as follows: My impression: No acute changes no fractures ECG Data Attestation EKG: I personally reviewed and interpreted this ECG as follows: Prior ECG tracings: not available for review Interpretation: Sinus bradycardia Ventricular rate of 59 Normal axis Normal QRS One PVC Nonspecific ST T wave changes MDM Narrative Medical decision making narrative: Patient arrived about any specific injury to his right knee. X-ray of his knee shows no acute pathology. He does have an obvious effusion to his right knee. We discussed the risks and benefits of a aspiration of the knee joint. We did discuss the concern about potentially introducing an infection versus potentially removing fluid in order to improve his symptoms. After this discussion the patient opted to have the procedure done. Approximately 80 cc of bloody fluid was obtained. INR was 2.0. No indication for acute reversal of his Coumadin. Just prior to my evaluation patient complained of very short episode of chest pain. EKG was obtained which shows no acute pathology except for 1 PVC. Chest pain is gone upon my evaluation. We did discuss that the bleeding in his knee could potentially be the result of his Coumadin. We also discussed that potentially there was some sort injury that he is not remember potentially stepping wrong which caused his symptoms. He did expressed understanding of this. Will have a Kock with his primary doctor about referral to see Orthopedics once again. He was given return precautions and follow-up instructions. He expressed understanding and agreement plan. Discharge Plan Departure Patient Disposition: Home Clinical Impression: Hemarthrosis involving knee joint Qualifiers: Laterality: right Qualified Code(s): M25.061 - Hemarthrosis, right knee Discharge Date/Time: 06/25/19 00:47 Instructions: DI for Hemarthrosis Activity Restrictions/Additional Instructions: Leave the bandage on for the next 24 hours. After that you can take it off. You can shower like normal. I do recommend you keep her leg elevated and iced. Contact your primary provider for follow-up. Also recommend you contact the [facility] group at [phone]. Return to the emergency department for any new or worsening symptoms Prescriptions: No Action albuterol sulfate [Proventil HFA] 90 MCG/PUFF HFA aerosol inhaler 1 puff INH PRN PRN (Reason: Shortness Of Breath) Qty: 0 RF: 0 alfuzosin 10 MG tablet extended release 24 hr 10 mg PO QPM Qty: 0 RF: 0 mesalamine [Pentasa] 500 MG capsule, extended release 1,000 mg PO BID Qty: 0 RF: 0 calcium carbonate-vitamin D3 500-100 mg-unit Tablet,Chewable 3 tab PO DAILY Qty: 0 RF: 0 warfarin [Coumadin] 5 mg tablet 5 mg PO SUMOWEFR RF: 0 furosemide 40 MG tablet 80 mg PO DAILY RF: 0 cyclobenzaprine 10 mg Tablet 10 mg PO PRN PRN (Reason: Spasms) RF: 0 furosemide 40 mg Tablet 40 mg PO QPM RF: 0 carvedilol 25 mg Tablet 12.5 mg PO DAILY RF: 0 carvedilol 25 mg Tablet 25 mg PO QPM RF: 0 tramadol 50 mg Tablet 50 mg PO Q6H RF: 0 simvastatin 40 mg Tablet 20 mg PO BID RF: 0 ferrous sulfate 325 mg (65 mg iron) Tablet 325 mg PO BID RF: 0 ascorbic acid (vitamin C) 500 mg Tablet,Chewable 500 mg PO DAILY RF: 0 nitroglycerin [Nitrostat] 0.4 mg Tablet, Sublingual 0.4 mg SUBLINGUAL Q5-15M PRN (Reason: Chest Pain) RF: 0 folic acid 1 mg Tablet 1 mg PO DAILY RF: 0 finasteride 5 mg Tablet 5 mg PO DAILY RF: 0 loratadine 10 mg Tablet 10 mg PO DAILY RF: 0 sodium fluoride-pot nitrate 1.1-5 % Paste 1 applic Dental QPM RF: 0 omeprazole 20 mg Tablet,Delayed Release (Dr/Ec) 20 mg PO DAILY RF: 0 cholecalciferol (vitamin D3) [Vitamin D3] 2,000 unit Capsule 2,000 unit PO DIRECTED RF: 0 potassium chloride 20 mEq Tablet Extended Release 20 meq PO DAILY RF: 0 aspirin 81 MG tablet,delayed release (DR/EC) 81 mg PO DAILY RF: 0 eplerenone 25 mg Tablet 25 mg PO DAILY RF: 0 warfarin 5 mg tablet 7.5 mg PO TUTH RF: 0 oxycodone-acetaminophen [Percocet] 5-325 mg tablet 2 tab PO Q6H PRN (Reason: acute knee pain/effusion) Qty: 10 RF: 0 warfarin [Coumadin] 5 mg tablet RF: 0 Referrals: Barrera Roth MD [Primary Care Provider] -
[2019-06-24] MEDS: ACETAMINOPHEN 325 MG TABLET 650 MG PO (22:57)
--- NOTE | 2019-06-24 23:38 | PC.NURSE ---
PT states developing chest pain, Dr aware and EKG ordered.
[2019-06-25] MEDS: LIDOCAINE 1% (PF) 4 ML INJ (00:05)
[2019-06-25 00:35] LABS: Prothrombin Time 23.6 SECONDS (10.1-12.7)
[2019-06-25 00:52] VITALS: BP 125/77; PULSE 59; RESP 19; O2SAT 99
== END 2019-06-25 00:47 | disposition home or self-care (01) ==
PROVIDERS: Emergency Provider Emergency Medicine; PCP Internal Medicine
DX: M25.061 Hemarthrosis, right knee (principal); R00.1 Bradycardia, unspecified
CPT/HCPCS: 20610; 36415; 73562; 85610; 93005; 93010; 99282; 99284

== ENCOUNTER 2019-08-14 04:25 | Emergency (ER) | payer MEDICARE, OTHER, SELFPAY ==
[2019-08-14 04:36] VITALS: BP 123/71; PULSE 72; RESP 15; TEMP 36.6; O2SAT 93; BMI 30.6
--- NOTE | 2019-08-14 04:46 | ED.MALEGU ---
HPI - Male Genitourinary General Chief complaint: Urogenital-Male Stated complaint: Urinary Issues Time Seen by Provider: 08/14/19 04:29 Source: EMS Mode of arrival: EMS Limitations: no limitations History of Present Illness HPI Narrative: CC: urinary retention HPI: The patient is an 79-year-old male who states that he had a Uro-lift performed by urologist on . Tonight he developed urinary retention and could not empty his bladder. Bladder scan revealed that he had 350 cc of retained urine. He was having lower abdominal pelvic pain secondary to bladder spasms. The patient was on warfarin for his heart disease which was discontinued in July prior to his surgical procedure. Tonight the patient developed a blood clot and was unable to urinate. He was also having bladder spasms. He states that he has a urinary tract infection and is on an antibiotic. He has felt intermittently feverish with chills but has had now sweats. He denies any headache shortness of breath cough chest pain dizziness. He feels that sometimes his pain and discomfort causes palpitations in his heart. He has had no nausea vomiting diarrhea. He does have a mild some dysuria and frequency. He admits to history of myocardial infarction which retired him from the [employer]. He has also had congestive heart failure. He denies any stroke or diabetes mellitus. He admits to a history of hypertension. Related Data Home Medications Medication Instructions Recorded Confirmed albuterol sulfate [Proventil HFA] 1 puff INH PRN PRN #0 03/22/17 05/18/18 alfuzosin 10 mg PO QPM #0 03/22/17 05/18/18 mesalamine [Pentasa] 1,000 mg PO BID #0 03/24/17 05/18/18 calcium carbonate-vitamin D3 3 tab PO DAILY #0 03/31/17 05/18/18 ascorbic acid (vitamin C) 500 mg PO DAILY 05/18/18 05/18/18 aspirin 81 mg PO DAILY 05/18/18 05/18/18 carvedilol 12.5 mg PO DAILY 05/18/18 05/18/18 carvedilol 25 mg PO QPM 05/18/18 05/18/18 cholecalciferol (vitamin D3) 2,000 unit PO DIRECTED 05/18/18 05/18/18 [Vitamin D3] cyclobenzaprine 10 mg PO PRN PRN 05/18/18 05/18/18 eplerenone 25 mg PO DAILY 05/18/18 05/18/18 ferrous sulfate 325 mg PO BID 05/18/18 05/18/18 finasteride 5 mg PO DAILY 05/18/18 05/18/18 folic acid 1 mg PO DAILY 05/18/18 05/18/18 furosemide 40 mg PO QPM 05/18/18 05/18/18 furosemide 80 mg PO DAILY 05/18/18 05/18/18 loratadine 10 mg PO DAILY 05/18/18 05/18/18 nitroglycerin [Nitrostat] 0.4 mg SUBLINGUAL Q5-15M PRN 05/18/18 05/18/18 omeprazole 20 mg PO DAILY 05/18/18 05/18/18 potassium chloride 20 meq PO DAILY 05/18/18 05/18/18 simvastatin 20 mg PO BID 05/18/18 05/18/18 sodium fluoride-pot nitrate 1 applic DENTAL QPM 05/18/18 05/18/18 tramadol 50 mg PO Q6H 05/18/18 05/18/18 warfarin 7.5 mg PO TUTH 05/18/18 05/18/18 warfarin [Coumadin] 5 mg PO SUMOWEFRSA 05/18/18 05/18/18 warfarin [Coumadin] 06/29/18 Previous Rx's Medication Instructions Recorded oxycodone-acetaminophen [Percocet] 2 tab PO Q6H PRN #10 tab 05/27/18 cefdinir 300 mg PO BID #10 cap 08/14/19 Allergies Allergy/AdvReac Type Severity Reaction Status Date / Time ibuprofen Allergy Mild NOT GOOD Verified 08/14/19 11:29 FOR STOMACH BLEEDING iodine Allergy Mild UNKNOWN Verified 08/14/19 11:29 Sulfa (Sulfonamide Allergy Mild BURNED A Verified 08/14/19 11:29 Antibiotics) HOLE THRU INTESTINES thallium-201 Allergy Mild BREAKS OUT Verified 08/14/19 11:29 IN BLOTCHES AND ITCHING Review of Systems Review of Systems ROS Unobtainable: All systems reviewed & are unremarkable except as noted in HPI and below Patient History Medical History Asthma (Chronic) Atrial fibrillation (Chronic) CHF (congestive heart failure) (Chronic) Osteoarthritis (Chronic) Pulmonary hypertension (Chronic) Surgical History H/O mitral valve replacement (Acute) Social History Smoking Status: Never smoker Smoking Status: Never smoker alcohol intake frequency: 0-2 drinks per day Substance Use Type: does not use Exam Narrative Exam Narrative: PHYSICAL EXAM: CONSTITUTIONAL: Awake, Alert, Oriented, Coherent, Cooperative in moderate intermittent pain and distress when he is having a bladder spasm. HEAD: AT/NC EENT: PERRL, FROM of eyes, no discharge, No epistaxis or nasal drainage Oral mucosa is moist and pink, posterior pharynx is without erythema or exudate. NECK: Supple, no obvious JVD, Trachea is midline without stridor, SPINE: No gross deformity, no palpable tenderness of the cervical, thoracic, lumbar or sacral spine. No CVA tenderness. THORAX: No deformity, retractions, chest wall tenderness, subcutaneous air or crepitice. LUNGS: Clear with symmetrical breath sounds without respiratory distress HEART: Normal heart tones, regular rhythm and rate without murmur. ABDOMEN: Abdomen is soft and tender suprapubically with a fullness palpable. EXTREMITIES: No edema, cyanosis, deformity or tenderness. SKIN: No rash, bruising, petechiae or purpura. NEURO: Awake, alert, oriented, conversive, cranial nerves II-XII are symmetrical and normal, moves all 4 extremities and is ambulatory Initial Vital Signs Initial Vital Signs: Vital Signs Temperature 97.9 F 08/14/19 04:36 Pulse Rate 72 08/14/19 04:36 Respiratory Rate 15 08/14/19 04:36 Blood Pressure 123/71 08/14/19 04:36 Pulse Oximetry 93 08/14/19 04:36 Course Course Course Narrative: 0457 a CBC basic metabolic panel were ordered on the patient. A coudet urinary catheter was ordered with a cath urine analysis. 4 mg of morphine sulfate was ordered for the patient's bladder spasms. 0507: the coudet urinary catheter was successfully placed in the patient. His urine appears volume bloody and muddy cloudy in nature. I urinalysis remains pending. A CBC was ordered to check his white blood count hemoglobin hematocrit and a basic metabolic panel to evaluate his electrolytes and renal function. I discussed with the patient leaving the catheter in place for the weekend so he that he does not re-obstruct. He will be given a regular bag for his [place] while at home and a leg bag when he is out and about. We discussed following up with his urologist on Friday to remove the catheter and re-evaluate the patient. 0602 the patient urine microscopic revealed that he had numerous red blood cells per high-power field but no white blood cells, leukocyte esterase or bacteria. No culture was obtained. The patient will be discharged on cefdinir 300 mg twice a day for 5 days and advised to follow-up with his primary care physician. Orders Ordered: Discontinued Medications Cefdinir (Omnicef) 300 mg PO NOW ONE Stop: 08/14/19 06:08 Last Admin: 08/14/19 06:35 Dose: Not Given Documented by: KESHA Morphine Sulfate (Morphine) 4 mg IV NOW ONE Stop: 08/14/19 04:40 Last Admin: 08/14/19 05:20 Dose: 4 mg Documented by: JILLIAN Vital Signs Vital signs: Vital Signs - 8 hr 08/14/19 04:36 Temperature 97.9 F Pulse Rate 72 Respiratory Rate 15 Blood Pressure 123/71 Pulse Oximetry 93 MDM - Male Genitourinary Lab Data Result diagrams: 08/14/19 05:15 08/14/19 05:15 Labs: Lab Results 08/14/19 08/14/19 08/14/19 Range/Units 04:45 05:15 05:15 WBC 4.9 (4.5-11.0) X10^3/uL RBC 3.90 L (4.5-5.9) X10^6/uL Hgb 11.2 L (13.5-17.5) g/dL Hct 33.5 L (41-53) % MCV 85.8 (80-100) fL MCH 28.7 (26-34) PG MCHC 33.5 (30-36) % RDW 15.2 H (11.6-14.8) % Plt Count 122 L (150-400) X10^3/uL Neut % (Auto) 68.7 (50-75) % Lymph % (Auto) 15.6 L (25-40) % Cross % (Auto) 12.0 (3-14) % Eos % (Auto) 2.9 (2-4) % Baso % (Auto) 0.8 (0-2) % Neut # (Auto) 3400 (3043-6521) /uL Lymph # (Auto) 800 L (5095-7491) /uL Cross # (Auto) 600 (0-900) /uL Eos # (Auto) 100 (0-450) /uL Baso # (Auto) 0 (0-100) /uL Sodium 139 (137-145) mmol/L Potassium 3.4 (3.4-5.1) mmol/L Chloride 97 L (98-107) mmol/L Carbon Dioxide 36 H (22-32) mmol/L BUN 18 (9-20) mg/dL Creatinine 0.90 (0.66-1.25) mg/dL Estimated GFR > 60.0 (>60) mL/min BUN/Creatinine Ratio 20.0 (6-22) Glucose 102 (80-110) mg/dL Calcium 9.0 (8.4-10.2) mg/dL Urine Color Red Urine Appearance Slightly cloudy Urine pH 7.5 (4.5-8.0) Ur Specific [place] 1.015 (1.000-1.035) Urine Protein 2+ H (Negative) Urine Glucose (UA) Negative (Negative) g/dL Urine Ketones Negative (NEGATIVE) Urine Occult Blood 3+ H (Negative) Urine Nitrate Negative (Negative) Urine Bilirubin Negative (NEGATIVE) Urine Urobilinogen 0.2 (0.2) E.U./dL Ur Leukocyte Esterase Negative (NEGATIVE) Urine RBC 30-100/hpf H (0-5/HPF) Urine WBC None seen (0-5/HPF) Amorphous Sediment 1+ Urine Bacteria None seen (None) Ur Culture Indicated? Cult not indicated Discharge Plan Departure Patient Disposition: Home Clinical Impression: H/O urinary tract infection, Acute urinary retention, Bladder spasms Discharge Date/Time: 08/14/19 07:09 Instructions: DI for Urinary Tract Infection (UTI), DI for Urinary Retention in Men Activity Restrictions/Additional Instructions: Follow-up with your urologist on Friday to have your catheter removed at that time. Take the cefdinir 300 mg twice a day until your catheter is removed. If you developed pain and discomfort with increased obstruction of the catheter you need to return to the emergency department. Take the rest of your medications as prescribed. Prescriptions: New cefdinir 300 mg capsule 300 mg PO BID Qty: 10 RF: 0 No Action albuterol sulfate [Proventil HFA] 90 MCG/PUFF HFA aerosol inhaler 1 puff INH PRN PRN (Reason: Shortness Of Breath) Qty: 0 RF: 0 alfuzosin 10 MG tablet extended release 24 hr 10 mg PO QPM Qty: 0 RF: 0 mesalamine [Pentasa] 500 MG capsule, extended release 1,000 mg PO BID Qty: 0 RF: 0 calcium carbonate-vitamin D3 500-100 mg-unit Tablet,Chewable 3 tab PO DAILY Qty: 0 RF: 0 warfarin [Coumadin] 5 mg tablet 5 mg PO WE RF: 0 furosemide 40 MG tablet 80 mg PO DAILY RF: 0 cyclobenzaprine 10 mg Tablet 10 mg PO PRN PRN (Reason: Spasms) RF: 0 furosemide 40 mg Tablet 40 mg PO QPM RF: 0 carvedilol 25 mg Tablet 12.5 mg PO DAILY RF: 0 carvedilol 25 mg Tablet 25 mg PO QPM RF: 0 tramadol 50 mg Tablet 50 mg PO Q6H RF: 0 simvastatin 40 mg Tablet 20 mg PO BID RF: 0 ferrous sulfate 325 mg (65 mg iron) Tablet 325 mg PO BID RF: 0 ascorbic acid (vitamin C) 500 mg Tablet,Chewable 500 mg PO DAILY RF: 0 nitroglycerin [Nitrostat] 0.4 mg Tablet, Sublingual 0.4 mg SUBLINGUAL Q5-15M PRN (Reason: Chest Pain) RF: 0 folic acid 1 mg Tablet 1 mg PO DAILY RF: 0 finasteride 5 mg Tablet 5 mg PO DAILY RF: 0 loratadine 10 mg Tablet 10 mg PO DAILY RF: 0 sodium fluoride-pot nitrate 1.1-5 % Paste 1 applic Dental QPM RF: 0 omeprazole 20 mg Tablet,Delayed Release (Dr/Ec) 20 mg PO DAILY RF: 0 cholecalciferol (vitamin D3) [Vitamin D3] 2,000 unit Capsule 2,000 unit PO DIRECTED RF: 0 potassium chloride 20 mEq Tablet Extended Release 20 meq PO DAILY RF: 0 aspirin 81 MG tablet,delayed release (DR/EC) 81 mg PO DAILY RF: 0 eplerenone 25 mg Tablet 25 mg PO DAILY RF: 0 warfarin 5 mg tablet 7.5 mg PO TUTH RF: 0 oxycodone-acetaminophen [Percocet] 5-325 mg tablet 2 tab PO Q6H PRN (Reason: acute knee pain/effusion) Qty: 10 RF: 0 warfarin [Coumadin] 5 mg tablet RF: 0 Referrals: Barrera Roth MD [Primary Care Provider] -
[2019-08-14] MEDS: MORPHINE 4 MG/ML INJ IV (05:20)
[2019-08-14 05:22] LABS: Add Manual Diff / Slide Review NO; Basophils Absolute Auto 0 /uL (0-100); Basophils Percent Auto 0.8 % (0-2); Eosinophils Absolute Auto 100 /uL (0-450); Eosinophils Percent Auto 2.9 % (2-4); Hematocrit 33.5 % (41-53); Hemoglobin 11.2 g/dL (13.5-17.5); Lymphocytes Absolute Auto 800 /uL (1100-4500); Lymphocytes Percent Auto 15.6 % (25-40); Mean Corpuscular HGB Conc 33.5 % (30-36); Mean Corpuscular Hemoglobin 28.7 PG (26-34); Mean Corpuscular Volume 85.8 fL (80-100); Monocytes Absolute Auto 600 /uL (0-900); Neutrophils Absolute Auto 3400 /uL (1500-7000); Neutrophils Percent Auto 68.7 % (50-75); Platelet Count 122 X10^3/uL (150-400); Red Cell Distribution Width 15.2 % (11.6-14.8); White Blood Cell Count 4.9 X10^3/uL (4.5-11.0)
[2019-08-14 05:31] LABS: Blood Urea Nitrogen 18 mg/dL (9-20); Carbon Dioxide 36 mmol/L (22-32); Chloride 97 mmol/L (98-107); Estimated Glomerular Filt Rate > 60.0 mL/min (>60); Glucose 102 mg/dL (80-110); HEMOLYSIS < 15 (0-50); Potassium 3.4 mmol/L (3.4-5.1); Sodium 139 mmol/L (137-145)
[2019-08-14 05:53] LABS: Bacteria Urine None Seen; WBC Urine None Seen (0-5/HPF)
[2019-08-14 05:54] LABS: Bilirubin Urine UA NEGATIVE (NEGATIVE); Glucose Urine UA NEGATIVE (Negative); Ketones Urine UA NEGATIVE (NEGATIVE); Leukocyte Esterase Urine UA NEGATIVE (NEGATIVE); Nitrite Urine UA NEGATIVE (Negative); Occult Blood Urine UA 3+ (Negative); Protein Urine UA 2+ (Negative); Specific Gravity Urine UA 1.015 (1.000-1.035); Urobilinogen Urine UA 0.2 E.U./dL (0.2); pH Urine UA 7.5 (4.5-8.0)
[2019-08-14 05:58] LABS: Appearance Urine UA Slightly Cloudy; Color Urine UA RED; RBC Urine 30-100/HPF (0-5/HPF)
[2019-08-14 05:59] LABS: Amorphous Sediment Urine 1+; Culture Indicated Urine Cult Not Indicated
[2019-08-14 07:07] VITALS: BP 121/71; PULSE 77; RESP 14; O2SAT 99
--- NOTE | 2019-08-14 07:10 | PC.NURSE ---
red bloody urine with clots present.
== END 2019-08-14 07:09 | disposition home or self-care (01) ==
PROVIDERS: Emergency Provider Emergency Medicine; PCP Internal Medicine
DX: R33.9 Retention of urine, unspecified (principal)
CPT/HCPCS: 80048; 81001; 85025; 99284; J2270

== ENCOUNTER 2019-08-14 11:22 | Emergency (ER) | payer MEDICARE, OTHER, SELFPAY ==
[2019-08-14 11:29] VITALS: BP 137/72; PULSE 82; RESP 14; TEMP 36.7; O2SAT 94; BMI 30.6
--- NOTE | 2019-08-14 11:34 | ED.MALEGU ---
HPI - Male Genitourinary <Denita PerezSANTA - Last Filed: 08/14/19 21:37> General Chief complaint: Urogenital-Female Stated complaint: here earlier catheter issues Time Seen by Provider: 08/14/19 11:30 Source: patient Mode of arrival: Ambulatory Limitations: no limitations History of Present Illness HPI Narrative: 79yo male who recently had a uro-lift on ( 2 days ago) done in [place] by Dr. Bradley with follow-up yesterday in which he states he was urinating regularly, however patient was seen in the emergency department last night for urinary retention and found to have approximately 300 mL of urine in his bladder at that time. A catheter was placed which relieved urinary retention. However, patient comes in today concerned that there may be another blood clot in the catheter as he woke up this morning and noticed he was leaking urine around the catheter. Patient states catheter is still draining. He was given antibiotics last night and states that he is taking them as directed. Patient states he has some irritation around the tip of his penis. He denies any fevers, chills, chest pain, shortness of breath, nausea, vomiting, diarrhea, rectal pain, or other concerns. Patient states he was on warfarin in the past but is no longer taking the blood thinner since July 29. Related Data Home Medications Medication Instructions Recorded Confirmed albuterol sulfate [Proventil HFA] 1 puff INH PRN PRN #0 03/22/17 05/18/18 alfuzosin 10 mg PO QPM #0 03/22/17 05/18/18 mesalamine [Pentasa] 1,000 mg PO BID #0 03/24/17 05/18/18 calcium carbonate-vitamin D3 3 tab PO DAILY #0 03/31/17 05/18/18 ascorbic acid (vitamin C) 500 mg PO DAILY 05/18/18 05/18/18 aspirin 81 mg PO DAILY 05/18/18 05/18/18 carvedilol 12.5 mg PO DAILY 05/18/18 05/18/18 carvedilol 25 mg PO QPM 05/18/18 05/18/18 cholecalciferol (vitamin D3) 2,000 unit PO DIRECTED 05/18/18 05/18/18 [Vitamin D3] cyclobenzaprine 10 mg PO PRN PRN 05/18/18 05/18/18 eplerenone 25 mg PO DAILY 05/18/18 05/18/18 ferrous sulfate 325 mg PO BID 05/18/18 05/18/18 finasteride 5 mg PO DAILY 05/18/18 05/18/18 folic acid 1 mg PO DAILY 05/18/18 05/18/18 furosemide 40 mg PO QPM 05/18/18 05/18/18 furosemide 80 mg PO DAILY 05/18/18 05/18/18 loratadine 10 mg PO DAILY 05/18/18 05/18/18 nitroglycerin [Nitrostat] 0.4 mg SUBLINGUAL Q5-15M PRN 05/18/18 05/18/18 omeprazole 20 mg PO DAILY 05/18/18 05/18/18 potassium chloride 20 meq PO DAILY 05/18/18 05/18/18 simvastatin 20 mg PO BID 05/18/18 05/18/18 sodium fluoride-pot nitrate 1 applic DENTAL QPM 05/18/18 05/18/18 tramadol 50 mg PO Q6H 05/18/18 05/18/18 warfarin 7.5 mg PO TUTH 05/18/18 05/18/18 warfarin [Coumadin] 5 mg PO SUMOWEFRSA 05/18/18 05/18/18 warfarin [Coumadin] 06/29/18 Previous Rx's Medication Instructions Recorded oxycodone-acetaminophen [Percocet] 2 tab PO Q6H PRN #10 tab 05/27/18 cefdinir 300 mg PO BID #10 cap 08/14/19 Allergies Allergy/AdvReac Type Severity Reaction Status Date / Time ibuprofen Allergy Mild NOT GOOD Verified 08/14/19 11:29 FOR STOMACH BLEEDING iodine Allergy Mild UNKNOWN Verified 08/14/19 11:29 Sulfa (Sulfonamide Allergy Mild BURNED A Verified 08/14/19 11:29 Antibiotics) HOLE THRU INTESTINES thallium-201 Allergy Mild BREAKS OUT Verified 08/14/19 11:29 IN BLOTCHES AND ITCHING Review of Systems <SANTA Abreu - Last Filed: 08/14/19 21:37> Review of Systems Narrative: REVIEW OF SYSTEMS: GENERAL: Denies fever or chills. HENT: No head trauma. CARDIOVASCULAR: No chest pain. RESPIRATORY: No shortness of breath or cough. GASTROINTESTINAL: No nausea, vomiting, or abdominal pain, see HPI. GENITOURINARY: Reports urine leaking around his catheter, see HPI. MUSCULOSKELETAL: No trauma. INTEGUMENTARY: No rash, lesions, or pruritus. NEURO: No memory loss or confusion. Patient History <SANTA Abreu - Last Filed: 08/14/19 21:37> Medical History Asthma (Chronic) Atrial fibrillation (Chronic) CHF (congestive heart failure) (Chronic) Osteoarthritis (Chronic) Pulmonary hypertension (Chronic) Surgical History H/O mitral valve replacement (Acute) Social History Smoking Status: Never smoker Smoking Status: Never smoker alcohol intake frequency: holidays/special occasions only Substance Use Type: does not use Exam <SANTA Abreu - Last Filed: 08/14/19 21:37> Initial Vital Signs Initial Vital Signs: Vital Signs Temperature 98.0 F 08/14/19 11:29 Pulse Rate 82 08/14/19 11:29 Respiratory Rate 14 08/14/19 11:29 Blood Pressure 137/72 08/14/19 11:29 Pulse Oximetry 94 08/14/19 11:29 PHYSICAL EXAMINATION: GENERAL: Well groomed, alert, and cooperative. Answers questions promptly and appropriately. Vital signs noted. HENT: Normocephalic, atraumatic. Hearing intact. Oral mucosa is pink and moist. EYES: Conjunctiva pink, sclera white, no periorbital swelling. CARDIOVASCULAR: Regular rate. RESPIRATORY: Normal respiratory rate, trachea midline, airway patent. No stridor, nasal flaring or accessory muscle use. GASTROINTESTINAL: Bowel sounds normoactive. Abdomen is soft and non-tender. GENITALURINARY: Small amount of erythema noted around tip of penis. Patient arrives with approximately 100ml in catheter bag. MUSCULOSKELETAL: Normal gait and coordination. Equal tone and mass bilaterally. EXTREMITIES: CMS intact. SKIN: Warm, dry, soft, appropriate color for ethnicity. No lesions, rashes, or wounds to visualized areas. NEURO: Alert and Oriented X 3. Good coordination. No ataxia, or sensory deficits, or cognitive issues. PSYCH: Appropriate affect and mood. <Katrina Freitas MD - Last Filed: 08/28/19 18:34> Initial Vital Signs Initial Vital Signs: Vital Signs Temperature 98.0 F 08/14/19 11:29 Pulse Rate 82 08/14/19 11:29 Respiratory Rate 14 08/14/19 11:29 Blood Pressure 137/72 08/14/19 11:29 Pulse Oximetry 94 08/14/19 11:29 Course <SANTA Abreu - Last Filed: 08/14/19 21:37> Course Course Narrative: Catheter was irrigated with 1200ml in the emergency department by nursing, nursing reported getting 1200ml out as well, they reported 1 large clot was passed. Patient was given fluids to drink and bladder scan was performed to ensure bladder was emptying, only 11ml of urine were detected in the bladder. Patient was given fluids and the catheter was observed for approximately 30-45 minutes. Patient's catheter continued to empty with approximately an additional 200 mL. Urine was noted to have an increased blood-tinged without significant clots. Upon discharge, nursing reported that he stood up and a blood was noted around the catheter. Catheter was changed to a larger size which resolved leakage from around catheter. Consultations Consultation #1: Patient staffed with Dr. Freitas. Vital Signs Vital signs: Vital Signs - 8 hr 08/14/19 11:29 Temperature 98.0 F Pulse Rate 82 Respiratory Rate 14 Blood Pressure 137/72 Pulse Oximetry 94 <Katrina Freitas MD - Last Filed: 08/28/19 18:34> Vital Signs Vital signs: Vital Signs - 8 hr 08/14/19 11:29 Temperature 98.0 F Pulse Rate 82 Respiratory Rate 14 Blood Pressure 137/72 Pulse Oximetry 94 [facility] - Male Genitourinary <SANTA Aberu - Last Filed: 08/14/19 21:37> Medical Records Attestation: I reviewed the patient's medical records. Lab Data Attestation: I reviewed the patient's lab results. [facility] Narrative Medical decision making narrative: 79-year-old male presents emergency department for urine leakage around his catheter that was placed yesterday 2 days postop from a uro-lift was found to have a clot that was obstructing the catheter. I suspect this most likely a postop complication related to his recent urological surgery. Clot was irrigated from the catheter, urine and then passed with ease after irrigation. The amount that was placed into the bladder was also irrigated out of the catheter. Patient denies any pain during this procedure or after. No leakage was seen around catheter or urethra after irrigation. However, once patient stood up, there was a small amount of leaking. Catheter was exchanged for larger tube and this completely resolved leakage. Less likely acute prostatitis or sepsis due to lack of significant pain, fevers, rectal pressure, or other concerns. Patient remained hemodynamically stable. His laboratory work from yesterday are consistent with the patient without a white blood cell count or increased of his chronic anemia. Patient is no longer taking blood thinners. Patient also is currently taking antibiotics. He states he will see his urologist on Friday as planned. Patient was given very strict return precautions for new or worsening symptoms. He agrees to plan of care verbalized understanding. He was discharged with a leg bag per with. Discharge Plan Departure Patient Disposition: Home Clinical Impression: Blocked urinary catheter Qualifiers: Encounter type: initial encounter Qualified Code(s): T83.098A - Other mechanical complication of other urinary catheter, initial encounter Discharge Date/Time: 08/14/19 13:59 Activity Restrictions/Additional Instructions: Thank you for entrusting me with your care today. As discussed, a large clot was irrigated out of your catheter. I believe this is the reason why you had leakage around her catheter. Encouraged to drink an adequate amount of fluids. Continue to take your antibiotics as prescribed. Please leave the catheter in place as instructed last night until you follow-up with urology. Return emergency department for any new or worsening symptoms such as fevers, inability for the catheter to drain, significant pain, uncontrollable vomiting, or other concerns. Prescriptions: No Action albuterol sulfate [Proventil HFA] 90 MCG/PUFF HFA aerosol inhaler 1 puff INH PRN PRN (Reason: Shortness Of Breath) Qty: 0 RF: 0 alfuzosin 10 MG tablet extended release 24 hr 10 mg PO QPM Qty: 0 RF: 0 mesalamine [Pentasa] 500 MG capsule, extended release 1,000 mg PO BID Qty: 0 RF: 0 calcium carbonate-vitamin D3 500-100 mg-unit Tablet,Chewable 3 tab PO DAILY Qty: 0 RF: 0 warfarin [Coumadin] 5 mg tablet 5 mg PO RF: 0 furosemide 40 MG tablet 80 mg PO DAILY RF: 0 cyclobenzaprine 10 mg Tablet 10 mg PO PRN PRN (Reason: Spasms) RF: 0 furosemide 40 mg Tablet 40 mg PO QPM RF: 0 carvedilol 25 mg Tablet 12.5 mg PO DAILY RF: 0 carvedilol 25 mg Tablet 25 mg PO QPM RF: 0 tramadol 50 mg Tablet 50 mg PO Q6H RF: 0 simvastatin 40 mg Tablet 20 mg PO BID RF: 0 ferrous sulfate 325 mg (65 mg iron) Tablet 325 mg PO BID RF: 0 ascorbic acid (vitamin C) 500 mg Tablet,Chewable 500 mg PO DAILY RF: 0 nitroglycerin [Nitrostat] 0.4 mg Tablet, Sublingual 0.4 mg SUBLINGUAL Q5-15M PRN (Reason: Chest Pain) RF: 0 folic acid 1 mg Tablet 1 mg PO DAILY RF: 0 finasteride 5 mg Tablet 5 mg PO DAILY RF: 0 loratadine 10 mg Tablet 10 mg PO DAILY RF: 0 sodium fluoride-pot nitrate 1.1-5 % Paste 1 applic Dental QPM RF: 0 omeprazole 20 mg Tablet,Delayed Release (Dr/Ec) 20 mg PO DAILY RF: 0 cholecalciferol (vitamin D3) [Vitamin D3] 2,000 unit Capsule 2,000 unit PO DIRECTED RF: 0 potassium chloride 20 mEq Tablet Extended Release 20 meq PO DAILY RF: 0 aspirin 81 MG tablet,delayed release (DR/EC) 81 mg PO DAILY RF: 0 eplerenone 25 mg Tablet 25 mg PO DAILY RF: 0 warfarin 5 mg tablet 7.5 mg PO TUTH RF: 0 oxycodone-acetaminophen [Percocet] 5-325 mg tablet 2 tab PO Q6H PRN (Reason: acute knee pain/effusion) Qty: 10 RF: 0 warfarin [Coumadin] 5 mg tablet RF: 0 cefdinir 300 mg capsule 300 mg PO BID Qty: 10 RF: 0 Referrals: Barrera Roth MD [Primary Care Provider] -
--- NOTE | 2019-08-14 12:01 | PC.NURSE ---
Irrigated bladder with approx 1250ml Normal Saline,urine is clear of clots and a very pale pink
--- NOTE | 2019-08-14 13:29 | PC.NURSE ---
leg bag sent and teaching done
--- NOTE | 2019-08-14 13:58 | PC.NURSE ---
by karri gold
== END 2019-08-14 13:59 | disposition home or self-care (01) ==
PROVIDERS: Emergency Provider Nurse Practitioner; PCP Internal Medicine
DX: T83.098A Other mechanical complication of other urinary catheter, initial encounter (principal); R33.9 Retention of urine, unspecified; N32.89 Other specified disorders of bladder; Z79.01 Long term (current) use of anticoagulants
CPT/HCPCS: 51700; 51701; 51705; 51798; 80048; 81001; 85025; 96374; 99284; J2270

== ENCOUNTER 2019-10-02 23:24 | Emergency (ER) | payer MEDICARE, OTHER, SELFPAY ==
--- NOTE | 2019-10-02 23:28 | ED.LOWEXIN ---
HPI - Extremity Injury (Lower) General Chief Complaint: Extremity Problem,Nontraumatic Stated Complaint: left lower leg/knee pain/swelling today Time Seen by Provider: 10/02/19 23:27 Source: patient Mode of arrival: Wheelchair Limitations: no limitations History of Present Illness HPI Narrative: 79-year-old maleWith history of AFib on Coumadin and prior episodes of hemarthrosis presents with a chief complaint of severe right knee pain and swelling in the absence of an obvious or known injury. He thinks he may have twisted it but it is unclear. He denies any recent changes in the dosing of his Coumadin and states his INR has been stable. He denies any redness or warmth. He has had no fever or shaking chills. He is not dizzy nor weak or lightheaded. Denies chest pain or shortness of breath. Patient denies travel or exposure to persons known to be positive for COVID-19. Denies a headache, change in smell, sore throat, fever, cough, shortness of breath or GI symptoms. He denies recent antibiotics or dietary change MD complaint: knee injury Onset (ago): hour(s) Injury: Right: knee Relieving factors: immobilization and rest Exacerbating factors: weight bearing and movement Associated symptoms: swelling and able to partially bear weight Other symptoms: none Related Data Home Medications Medication Instructions Recorded Confirmed albuterol sulfate [Proventil HFA] 1 puff INH PRN PRN #0 03/22/17 05/18/18 alfuzosin 10 mg PO QPM #0 03/22/17 05/18/18 mesalamine [Pentasa] 1,000 mg PO BID #0 03/24/17 05/18/18 calcium carbonate-vitamin D3 3 tab PO DAILY #0 03/31/17 05/18/18 ascorbic acid (vitamin C) 500 mg PO DAILY 05/18/18 05/18/18 aspirin 81 mg PO DAILY 05/18/18 05/18/18 carvedilol 12.5 mg PO DAILY 05/18/18 05/18/18 carvedilol 25 mg PO QPM 05/18/18 05/18/18 cholecalciferol (vitamin D3) 2,000 unit PO DIRECTED 05/18/18 05/18/18 [Vitamin D3] cyclobenzaprine 10 mg PO PRN PRN 05/18/18 05/18/18 eplerenone 25 mg PO DAILY 05/18/18 05/18/18 ferrous sulfate 325 mg PO BID 05/18/18 05/18/18 finasteride 5 mg PO DAILY 05/18/18 05/18/18 folic acid 1 mg PO DAILY 05/18/18 05/18/18 furosemide 40 mg PO QPM 05/18/18 05/18/18 furosemide 80 mg PO DAILY 05/18/18 05/18/18 loratadine 10 mg PO DAILY 05/18/18 05/18/18 nitroglycerin [Nitrostat] 0.4 mg SUBLINGUAL Q5-15M PRN 05/18/18 05/18/18 omeprazole 20 mg PO DAILY 05/18/18 05/18/18 potassium chloride 20 meq PO DAILY 05/18/18 05/18/18 simvastatin 20 mg PO BID 05/18/18 05/18/18 sodium fluoride-pot nitrate 1 applic DENTAL QPM 05/18/18 05/18/18 tramadol 50 mg PO Q6H 05/18/18 05/18/18 warfarin 7.5 mg PO TUTH 05/18/18 05/18/18 warfarin [Coumadin] 5 mg PO SUMOWEFRSA 05/18/18 05/18/18 warfarin [Coumadin] 06/29/18 Previous Rx's Medication Instructions Recorded oxycodone-acetaminophen [Percocet] 2 tab PO Q6H PRN #10 tab 05/27/18 cefdinir 300 mg PO BID #10 cap 08/14/19 Allergies Allergy/AdvReac Type Severity Reaction Status Date / Time ibuprofen Allergy Mild NOT GOOD Verified 08/14/19 11:29 FOR STOMACH BLEEDING iodine Allergy Mild UNKNOWN Verified 08/14/19 11:29 Sulfa (Sulfonamide Allergy Mild BURNED A Verified 08/14/19 11:29 Antibiotics) HOLE THRU INTESTINES thallium-201 Allergy Mild BREAKS OUT Verified 08/14/19 11:29 IN BLOTCHES AND ITCHING Review of Systems Constitutional Constitutional: Denies chills, Denies fatigue, Denies fever(s), Denies frequent falls, Denies lethargy and Denies weakness Eyes Eyes: Denies change in vision, Denies eye discharge, Denies irritation and Denies loss of vision ENT Ears, Nose, Mouth, and Throat: Denies change in voice, Denies dizziness, Denies neck pain, Denies sore throat and Denies throat swelling Cardiovascular Cardiovascular: Denies chest pain, Denies irregular heart rhythm, Denies lightheadedness, Denies palpitations, Denies dyspnea, Denies dyspnea on exertion and Denies orthopnea Respiratory Respiratory: Denies cough, Denies dyspnea, Denies dyspnea on exertion and Denies wheezing Gastrointestinal Gastrointestinal: Denies abdominal pain, Denies change in bowel habits, Denies diarrhea, Denies nausea and Denies vomiting Genitourinary Genitourinary: Denies hematuria, Denies flank pain, Denies urinary incontinence and Denies urinary urgency Musculoskeletal Musculoskeletal: Denies back pain, Reports joint swelling, Reports limited range of motion, Denies muscle weakness, Denies neck pain, Denies numbness and Denies tingling Integumentary/Breasts Skin/Breast: Denies pruritus, Denies erythema, Denies rash and Denies wounds Neurologic Neurologic: Denies behavioral changes, Denies confusion, Denies dizziness, Denies frequent falls, Denies loss of vision, Denies numbness, Denies tingling and Denies weakness Psychiatric Psychiatric: Denies anxiety, Denies behavioral changes, Denies confusion, Denies depression, Denies homicidal ideation and Denies suicidal ideation Endocrine Endocrine: Denies fatigue, Denies flushing and Denies palpitations Hematologic/Lymphatic Hematologic/Lymphatic: Denies easy bruising Allergic/Immunologic Allergic/Immunologic: Denies urticaria, Denies throat swelling and Denies wheezing Patient History Medical History Asthma (Chronic) Atrial fibrillation (Chronic) CHF (congestive heart failure) (Chronic) Osteoarthritis (Chronic) Pulmonary hypertension (Chronic) Surgical History H/O mitral valve replacement (Acute) Social History Smoking Status: Never smoker Smoking Status: Never smoker alcohol intake frequency: holidays/special occasions only Substance Use Type: does not use Exam Narrative Exam Narrative: GEN: AOx3 and in mild distress EYES: Pupils are equal, round, and reactive to light and accommodation. Extraoccular muscles are intact bilaterally. There is no subconjunctival hemorrhage or exudate. CHEST: Lungs are clear to auscultation bilaterally and free of wheezes, rales, or rhonchi. Heart rate is regular rhythm, there are no murmurs, clicks, rubs, or gallops. There is no chest wall tenderness. ABD: Abdomen is soft and nontender. There is no guarding or rebound. Bowel sounds are normal in all 4 quadrants. There is no mass or organomegaly. EXT: Noted swelling to right knee in the absence of warmth or redness. There is an effusion amenable to draining. No bony tenderness. Closed, isolated and neurovascularly intact SKIN: Warm, pink, and dry. No erythema or rash Initial Vital Signs Initial Vital Signs: Vital Signs Temperature 97.9 F 10/02/19 23:35 Pulse Rate 75 10/02/19 23:35 Respiratory Rate 18 10/02/19 23:35 Blood Pressure 118/70 10/02/19 23:35 Pulse Oximetry 93 10/02/19 23:35 Course Orders Ordered: ED Orders 10/02/19 23:34 XR knee RT 3V Stat 10/02/19 23:50 C-Reactive Protein Quant Stat Complete Blood Count AUTO DIFF Stat Erythrocyte Sedimentation Rate Stat Prothrombin Time INR Stat Uric Acid Stat 10/03/19 00:50 Body Fluid Culture Stat Cell Count w Diff Body Fluid Stat Crystals Body Fluid - IN-HOUSE Stat Discontinued Medications Bupivacaine HCl (Sensorcaine 0.5% (Pf)) 5 ml SUBCUT NOW ONE Stop: 10/02/19 23:34 Last Admin: 10/03/19 00:50 Dose: 5 ml Documented by: SANTIAGO Vital Signs Vital signs: Vital Signs - 8 hr 10/02/19 23:35 10/03/19 01:20 Temperature 97.9 F 98.0 F Pulse Rate 75 65 Respiratory Rate 18 15 Blood Pressure 118/70 113/68 Pulse Oximetry 93 95 MDM - Extremity Injury (Lower) Lab Data Result diagrams: 10/02/19 23:50 Labs: Lab Results 10/02/19 10/02/19 10/02/19 Range/Units 23:50 23:50 23:50 WBC 5.2 (4.5-11.0) X10^3/uL RBC 3.84 L (4.5-5.9) X10^6/uL Hgb 10.8 L (13.5-17.5) g/dL Hct 32.9 L (41-53) % MCV 85.6 (80-100) fL MCH 28.1 (26-34) PG MCHC 32.8 (30-36) % RDW 15.3 H (11.6-14.8) % Plt Count 129 L (150-400) X10^3/uL Neut % (Auto) 66.3 (50-75) % Lymph % (Auto) 15.8 L (25-40) % Woodson % (Auto) 13.8 (3-14) % Eos % (Auto) 3.3 (2-4) % Baso % (Auto) 0.8 (0-2) % Neut # (Auto) 3500 (5130-0950) /uL Lymph # (Auto) 800 L (6973-2204) /uL Woodson # (Auto) 700 (0-900) /uL Eos # (Auto) 200 (0-450) /uL Baso # (Auto) 0 (0-100) /uL ESR 11 (0-15) MM/HR PT 45.6 H (10.1-12.7) SECONDS INR 4.0 H (0.9-1.3) Uric Acid 5.5 (3.5-8.5) mg/dL C-Reactive Protein < 0.5 (<1.0) mg/dL Fluid Color Fluid Appearance Fluid RBC /uL Fld Tot Nucleated Cell /uL Fluid Polynuclear WBCs % Fluid Mononuclear WBCs % Fluid Eosinophils % Fluid Other Cells Fluid Crystals (NONE) Body Fluid Clot 10/03/19 10/03/19 Range/Units 00:50 00:50 WBC (4.5-11.0) X10^3/uL RBC (4.5-5.9) X10^6/uL Hgb (13.5-17.5) g/dL Hct (41-53) % MCV (80-100) fL MCH (26-34) PG MCHC (30-36) % RDW (11.6-14.8) % Plt Count (150-400) X10^3/uL Neut % (Auto) (50-75) % Lymph % (Auto) (25-40) % Woodson % (Auto) (3-14) % Eos % (Auto) (2-4) % Baso % (Auto) (0-2) % Neut # (Auto) (7918-0474) /uL Lymph # (Auto) (8689-5996) /uL Woodson # (Auto) (0-900) /uL Eos # (Auto) (0-450) /uL Baso # (Auto) (0-100) /uL ESR (0-15) MM/HR PT (10.1-12.7) SECONDS INR (0.9-1.3) Uric Acid (3.5-8.5) mg/dL C-Reactive Protein (<1.0) mg/dL Fluid Color Red Fluid Appearance Bloody Fluid RBC [id number] /uL Fld Tot Nucleated Cell 61785 /uL Fluid Polynuclear WBCs 44 % Fluid Mononuclear WBCs 54 % Fluid Eosinophils 2 % Fluid Other Cells Not Reportable Fluid Crystals None present (NONE) Body Fluid Clot No clots present Discharge Plan Departure Patient Disposition: Home Clinical Impression: Hemarthrosis of knee Qualifiers: Laterality: right Qualified Code(s): M25.061 - Hemarthrosis, right knee Discharge Date/Time: 10/03/19 01:22 Activity Restrictions/Additional Instructions: *You have been diagnosed with [spontaneous hemarthrosis of Right knee] *What to do: *Take medications as directed, except please do not take your coumadin on Friday or Friday. Please return to normal dosing on Friday unless Dr. Roth's office tells you otherwise. *Follow up with your primary care provider in 2-3 days, call for an appointment. Let them know you were seen in the Emergency Department and that we ask that you be seen in follow up *Return to ER if you should have any new, worsening or concerning symptoms Prescriptions: No Action albuterol sulfate [Proventil HFA] 90 MCG/PUFF HFA aerosol inhaler 1 puff INH PRN PRN (Reason: Shortness Of Breath) Qty: 0 RF: 0 alfuzosin 10 MG tablet extended release 24 hr 10 mg PO QPM Qty: 0 RF: 0 mesalamine [Pentasa] 500 MG capsule, extended release 1,000 mg PO BID Qty: 0 RF: 0 calcium carbonate-vitamin D3 500-100 mg-unit Tablet,Chewable 3 tab PO DAILY Qty: 0 RF: 0 warfarin [Coumadin] 5 mg tablet 5 mg PO SUMOWEFRSA RF: 0 furosemide 40 MG tablet 80 mg PO DAILY RF: 0 cyclobenzaprine 10 mg Tablet 10 mg PO PRN PRN (Reason: Spasms) RF: 0 furosemide 40 mg Tablet 40 mg PO QPM RF: 0 carvedilol 25 mg Tablet 12.5 mg PO DAILY RF: 0 carvedilol 25 mg Tablet 25 mg PO QPM RF: 0 tramadol 50 mg Tablet 50 mg PO Q6H RF: 0 simvastatin 40 mg Tablet 20 mg PO BID RF: 0 ferrous sulfate 325 mg (65 mg iron) Tablet 325 mg PO BID RF: 0 ascorbic acid (vitamin C) 500 mg Tablet,Chewable 500 mg PO DAILY RF: 0 nitroglycerin [Nitrostat] 0.4 mg Tablet, Sublingual 0.4 mg SUBLINGUAL Q5-15M PRN (Reason: Chest Pain) RF: 0 folic acid 1 mg Tablet 1 mg PO DAILY RF: 0 finasteride 5 mg Tablet 5 mg PO DAILY RF: 0 loratadine 10 mg Tablet 10 mg PO DAILY RF: 0 sodium fluoride-pot nitrate 1.1-5 % Paste 1 applic Dental QPM RF: 0 omeprazole 20 mg Tablet,Delayed Release (Dr/Ec) 20 mg PO DAILY RF: 0 cholecalciferol (vitamin D3) [Vitamin D3] 2,000 unit Capsule 2,000 unit PO DIRECTED RF: 0 potassium chloride 20 mEq Tablet Extended Release 20 meq PO DAILY RF: 0 aspirin 81 MG tablet,delayed release (DR/EC) 81 mg PO DAILY RF: 0 eplerenone 25 mg Tablet 25 mg PO DAILY RF: 0 warfarin 5 mg tablet 7.5 mg PO TUTH RF: 0 oxycodone-acetaminophen [Percocet] 5-325 mg tablet 2 tab PO Q6H PRN (Reason: acute knee pain/effusion) Qty: 10 RF: 0 warfarin [Coumadin] 5 mg tablet RF: 0 cefdinir 300 mg capsule 300 mg PO BID Qty: 10 RF: 0 Referrals: Barrera Roth MD [Primary Care Provider] -
--- NOTE | 2019-10-02 23:34 | DI.RAD.S_ITS ---
PROCEDURE: XR KNEE RT 3V INDICATIONS: possible injury, obvious effusion TECHNIQUE: 3 views of the knee were acquired. COMPARISON: [facility], CT, CT LE RT WO CON, 05/18/2018, 16:27. [facility], CR, XR KNEE RT 3V, 05/27/2018, 20:54. [facility], CR, XR KNEE RT 3V, 06/24/2019, 22:51. FINDINGS: Bones: No fractures or dislocations. No suspicious bony lesions. The femorotibial joint spaces are well-preserved. On the sunrise view, there is mild to moderate lateral patellofemoral joint space narrowing seen. Osteophyte formation can be seen along the margins of the patella. Soft tissues: There is a large joint effusion. No suspicious soft tissue calcifications. Atherosclerotic calcification is noted. IMPRESSION: No acute bony injury is seen. If there is point tenderness (or other clinical suspicion for a fracture not seen on these images) please consider a dedicated CT for further evaluation. Large joint effusion. Focal lateral patellofemoral joint degenerative change. If there is strong clinical suspicion for internal derangement of this joint, please consider a dedicated MRI for further evaluation (assuming that there is no contraindication to MRI). Dictated by: Tejinder Clement M.D. on 10/03/2019 at 7:32 Approved by: Tejinder Clement M.D. on 10/03/2019 at 7:34
[2019-10-02 23:35] VITALS: BP 118/70; PULSE 75; RESP 18; TEMP 36.6; O2SAT 93; BMI 30.9
[2019-10-03 00:04] LABS: Add Manual Diff / Slide Review NO; Basophils Absolute Auto 0 /uL (0-100); Basophils Percent Auto 0.8 % (0-2); Eosinophils Absolute Auto 200 /uL (0-450); Eosinophils Percent Auto 3.3 % (2-4); Hematocrit 32.9 % (41-53); Hemoglobin 10.8 g/dL (13.5-17.5); Lymphocytes Absolute Auto 800 /uL (1100-4500); Lymphocytes Percent Auto 15.8 % (25-40); Mean Corpuscular HGB Conc 32.8 % (30-36); Mean Corpuscular Hemoglobin 28.1 PG (26-34); Mean Corpuscular Volume 85.6 fL (80-100); Monocytes Absolute Auto 700 /uL (0-900); Monocytes Percent Auto 13.8 % (3-14); Neutrophils Absolute Auto 3500 /uL (1500-7000); Neutrophils Percent Auto 66.3 % (50-75); Platelet Count 129 X10^3/uL (150-400); Red Blood Cell Count 3.84 X10^6/uL (4.5-5.9); Red Cell Distribution Width 15.3 % (11.6-14.8); White Blood Cell Count 5.2 X10^3/uL (4.5-11.0)
[2019-10-03 00:05] LABS: Prothrombin Time 45.6 SECONDS (10.1-12.7)
[2019-10-03 00:08] LABS: Uric Acid 5.5 mg/dL (3.5-8.5)
[2019-10-03 00:17] LABS: Erythrocyte Sedimentation Rate 11 MM/HR (0-15)
[2019-10-03 00:44] LABS: C-Reactive Protein Quant < 0.5 mg/dL (<1.0)
[2019-10-03] MEDS: BUPIVACAINE 0.5% (PF) VIAL 5 ML SUBCUT (00:50)
[2019-10-03 01:20] VITALS: BP 113/68; PULSE 65; RESP 15; TEMP 36.7; O2SAT 95
[2019-10-03 01:31] LABS: Body Fluid Red Blood Cells 2487487 /uL; Body Fluid Tot Nucleated Cells 14568 /uL
[2019-10-03 02:02] LABS: Body Fluid Appearance BLOODY; Body Fluid Clotted? NO CLOTS PRESENT; Body Fluid Color RED
[2019-10-03 02:06] LABS: Eosinophils Body Fluid 2 %; Mononuclear WBC Body Fluid 54 %; Polynuclear WBC Body Fluid 44 %
[2019-10-03 02:14] LABS: Crystals Body Fluid - IN-HOUSE NONE Present
== END 2019-10-03 01:22 | disposition home or self-care (01) ==
PROVIDERS: Emergency Provider Emergency Medicine; PCP Internal Medicine
DX: M25.061 Hemarthrosis, right knee (principal); I48.91 Unspecified atrial fibrillation; Z79.01 Long term (current) use of anticoagulants
CPT/HCPCS: 36415; 73562; 84550; 85025; 85610; 85651; 86140; 87070; 87075; 87205; 89051; 89060; 99284

== ENCOUNTER 2019-10-31 21:07 | Emergency (ER) | payer MEDICARE, OTHER, SELFPAY ==
[2019-10-31 21:24] VITALS: BP 96/62; PULSE 77; RESP 16; TEMP 36.6; O2SAT 97; BMI 31.8
--- NOTE | 2019-10-31 22:16 | ED.LOWEXIN ---
HPI - Extremity Injury (Lower) General Chief Complaint: Extremity Injury, Lower Stated Complaint: Twisted Left Knee Time Seen by Provider: 10/31/19 21:40 Source: patient Mode of arrival: Wheelchair Limitations: no limitations History of Present Illness HPI Narrative: 79-year-old male nonsmoker history of hypertension, and atrial fibrillation on Coumadin presents with a left knee injury suffered earlier today. He states that he was bending and twisting and felt a pinch in his left knee and a few hour later noticed that it was aching a bit more. He denies any high velocity injury or trauma. He denies any numbness, tingling or weakness. He denies any fever or chills. He admits to worsening pain with ambulation range of motion and improvement with rest. MD complaint: knee injury Onset (ago): hour(s) Type of Injury: inversion Place: home Severity: moderate Relieving factors: immobilization and rest Exacerbating factors: weight bearing and movement Context: walking Other symptoms: none Related Data Home Medications Medication Instructions Recorded Confirmed albuterol sulfate [Proventil HFA] 1 puff INH PRN PRN #0 03/22/17 05/18/18 alfuzosin 10 mg PO QPM #0 03/22/17 05/18/18 mesalamine [Pentasa] 1,000 mg PO BID #0 03/24/17 05/18/18 calcium carbonate-vitamin D3 3 tab PO DAILY #0 03/31/17 05/18/18 ascorbic acid (vitamin C) 500 mg PO DAILY 05/18/18 05/18/18 aspirin 81 mg PO DAILY 05/18/18 05/18/18 carvedilol 12.5 mg PO DAILY 05/18/18 05/18/18 carvedilol 25 mg PO QPM 05/18/18 05/18/18 cholecalciferol (vitamin D3) 2,000 unit PO DIRECTED 05/18/18 05/18/18 [Vitamin D3] cyclobenzaprine 10 mg PO PRN PRN 05/18/18 05/18/18 eplerenone 25 mg PO DAILY 05/18/18 05/18/18 ferrous sulfate 325 mg PO BID 05/18/18 05/18/18 finasteride 5 mg PO DAILY 05/18/18 05/18/18 folic acid 1 mg PO DAILY 05/18/18 05/18/18 furosemide 40 mg PO QPM 05/18/18 05/18/18 furosemide 80 mg PO DAILY 05/18/18 05/18/18 loratadine 10 mg PO DAILY 05/18/18 05/18/18 nitroglycerin [Nitrostat] 0.4 mg SUBLINGUAL Q5-15M PRN 05/18/18 05/18/18 omeprazole 20 mg PO DAILY 05/18/18 05/18/18 potassium chloride 20 meq PO DAILY 05/18/18 05/18/18 simvastatin 20 mg PO BID 05/18/18 05/18/18 sodium fluoride-pot nitrate 1 applic DENTAL QPM 05/18/18 05/18/18 tramadol 50 mg PO Q6H 05/18/18 05/18/18 warfarin 7.5 mg PO TUTH 05/18/18 05/18/18 warfarin [Coumadin] 5 mg PO SUMOWEFRSA 05/18/18 05/18/18 warfarin [Coumadin] 06/29/18 Previous Rx's Medication Instructions Recorded oxycodone-acetaminophen [Percocet] 2 tab PO Q6H PRN #10 tab 05/27/18 cefdinir 300 mg PO BID #10 cap 08/14/19 Allergies Allergy/AdvReac Type Severity Reaction Status Date / Time ibuprofen Allergy Mild NOT GOOD Verified 08/14/19 11:29 FOR STOMACH BLEEDING iodine Allergy Mild UNKNOWN Verified 08/14/19 11:29 Sulfa (Sulfonamide Allergy Mild BURNED A Verified 08/14/19 11:29 Antibiotics) HOLE THRU INTESTINES thallium-201 Allergy Mild BREAKS OUT Verified 08/14/19 11:29 IN BLOTCHES AND ITCHING Review of Systems Constitutional Constitutional: Denies chills, Denies fatigue, Denies fever(s), Denies frequent falls, Denies lethargy and Denies weakness Eyes Eyes: Denies change in vision, Denies eye discharge, Denies irritation and Denies loss of vision ENT Ears, Nose, Mouth, and Throat: Denies change in voice, Denies dizziness, Denies neck pain, Denies sore throat and Denies throat swelling Cardiovascular Cardiovascular: Denies chest pain, Denies irregular heart rhythm, Denies lightheadedness, Denies palpitations, Denies dyspnea, Denies dyspnea on exertion and Denies orthopnea Respiratory Respiratory: Denies cough, Denies dyspnea, Denies dyspnea on exertion and Denies wheezing Gastrointestinal Gastrointestinal: Denies abdominal pain, Denies change in bowel habits, Denies diarrhea, Denies nausea and Denies vomiting Genitourinary Genitourinary: Denies hematuria, Denies flank pain, Denies urinary incontinence and Denies urinary urgency Musculoskeletal Musculoskeletal: Denies back pain, Reports limited range of motion, Denies muscle weakness, Denies neck pain, Denies numbness and Denies tingling Integumentary/Breasts Skin/Breast: Denies pruritus, Denies erythema, Denies rash and Denies wounds Neurologic Neurologic: Denies behavioral changes, Denies confusion, Denies dizziness, Denies frequent falls, Denies loss of vision, Denies numbness, Denies tingling and Denies weakness Psychiatric Psychiatric: Denies anxiety, Denies behavioral changes, Denies confusion, Denies depression, Denies homicidal ideation and Denies suicidal ideation Endocrine Endocrine: Denies fatigue, Denies flushing and Denies palpitations Hematologic/Lymphatic Hematologic/Lymphatic: Denies easy bruising Allergic/Immunologic Allergic/Immunologic: Denies urticaria, Denies throat swelling and Denies wheezing Patient History Medical History Asthma (Chronic) Atrial fibrillation (Chronic) CHF (congestive heart failure) (Chronic) Osteoarthritis (Chronic) Pulmonary hypertension (Chronic) Surgical History H/O mitral valve replacement (Acute) Social History Smoking Status: Never smoker Smoking Status: Never smoker alcohol intake frequency: holidays/special occasions only Substance Use Type: does not use Exam Narrative Exam Narrative: GEN: AOx3 and in mild distress EYES: Pupils are equal, round, and reactive to light and accommodation. Extraoccular muscles are intact bilaterally. There is no subconjunctival hemorrhage or exudate. CHEST: Lungs are clear to auscultation bilaterally and free of wheezes, rales, or rhonchi. Heart rate is regular rhythm, there are no murmurs, clicks, rubs, or gallops. There is no chest wall tenderness. ABD: Abdomen is soft and nontender. There is no guarding or rebound. Bowel sounds are normal in all 4 quadrants. There is no mass or organomegaly. EXT: Full but painful range of motion of left knee. No obvious effusion, redness or swelling. He is tender to palpation along the distribution of the left LCL and meniscus. There is no ligamentous laxity noted. SKIN: Warm, pink, and dry. No erythema or rash Initial Vital Signs Initial Vital Signs: Vital Signs Temperature 97.9 F 10/31/19 21:24 Pulse Rate 77 10/31/19 21:24 Respiratory Rate 16 10/31/19 21:24 Blood Pressure 96/62 10/31/19 21:24 Pulse Oximetry 97 10/31/19 21:24 Course Orders Ordered: ED Orders 11/01/19 00:03 XR knee LT 3V Stat Discontinued Medications Acetaminophen (Tylenol) 650 mg PO NOW ONE Stop: 11/01/19 00:39 Last Admin: 11/01/19 00:46 Dose: 650 mg Documented by: MICHOACANO Vital Signs Vital signs: Vital Signs - 8 hr 10/31/19 21:24 Temperature 97.9 F Pulse Rate 77 Respiratory Rate 16 Blood Pressure 96/62 Pulse Oximetry 97 MDM - Extremity Injury (Lower) Imaging Data Extremity x-ray #1: Attestation: I personally reviewed and interpreted this imaging study as follows: My Impression: No acute bony abnormality MDM Narrative Medical decision making narrative: Reassuring exam and xray. Fracture considered but thought less likely given findings. Patient on coumadin and hemarthrosis considered, but exam not consistent with this diagnosis. Patient given return precautions and has had his questions answered to his apparent satisfaction Discharge Plan Departure Patient Disposition: Home Clinical Impression: Strain of left knee Qualifiers: Encounter type: initial encounter Qualified Code(s): S86.912A - Strain of unspecified muscle(s) and tendon(s) at lower leg level, left leg, initial encounter Discharge Date/Time: 11/01/19 00:55 Instructions: DI for Knee Pain Activity Restrictions/Additional Instructions: *You have been diagnosed with [acute left knee strain] *What to do: *Take medications as directed *Follow up with your primary care provider in 2-3 days, call for an appointment. Let them know you were seen in the Emergency Department and that we ask that you be seen in follow up *Return to ER if you should have any new, worsening or concerning symptoms Radiographic study has been interpreted by an emergency physician. The official diagnosis by radiology will be performed within the next 24 hours and should there be any change in outcome we will notify you of how to proceed. Prescriptions: No Action albuterol sulfate [Proventil HFA] 90 MCG/PUFF HFA aerosol inhaler 1 puff INH PRN PRN (Reason: Shortness Of Breath) Qty: 0 RF: 0 alfuzosin 10 MG tablet extended release 24 hr 10 mg PO QPM Qty: 0 RF: 0 mesalamine [Pentasa] 500 MG capsule, extended release 1,000 mg PO BID Qty: 0 RF: 0 calcium carbonate-vitamin D3 500-100 mg-unit Tablet,Chewable 3 tab PO DAILY Qty: 0 RF: 0 warfarin [Coumadin] 5 mg tablet 5 mg PO SUMOWE RF: 0 furosemide 40 MG tablet 80 mg PO DAILY RF: 0 cyclobenzaprine 10 mg Tablet 10 mg PO PRN PRN (Reason: Spasms) RF: 0 furosemide 40 mg Tablet 40 mg PO QPM RF: 0 carvedilol 25 mg Tablet 12.5 mg PO DAILY RF: 0 carvedilol 25 mg Tablet 25 mg PO QPM RF: 0 tramadol 50 mg Tablet 50 mg PO Q6H RF: 0 simvastatin 40 mg Tablet 20 mg PO BID RF: 0 ferrous sulfate 325 mg (65 mg iron) Tablet 325 mg PO BID RF: 0 ascorbic acid (vitamin C) 500 mg Tablet,Chewable 500 mg PO DAILY RF: 0 nitroglycerin [Nitrostat] 0.4 mg Tablet, Sublingual 0.4 mg SUBLINGUAL Q5-15M PRN (Reason: Chest Pain) RF: 0 folic acid 1 mg Tablet 1 mg PO DAILY RF: 0 finasteride 5 mg Tablet 5 mg PO DAILY RF: 0 loratadine 10 mg Tablet 10 mg PO DAILY RF: 0 sodium fluoride-pot nitrate 1.1-5 % Paste 1 applic Dental QPM RF: 0 omeprazole 20 mg Tablet,Delayed Release (Dr/Ec) 20 mg PO DAILY RF: 0 cholecalciferol (vitamin D3) [Vitamin D3] 2,000 unit Capsule 2,000 unit PO DIRECTED RF: 0 potassium chloride 20 mEq Tablet Extended Release 20 meq PO DAILY RF: 0 aspirin 81 MG tablet,delayed release (DR/EC) 81 mg PO DAILY RF: 0 eplerenone 25 mg Tablet 25 mg PO DAILY RF: 0 warfarin 5 mg tablet 7.5 mg PO TUTH RF: 0 oxycodone-acetaminophen [Percocet] 5-325 mg tablet 2 tab PO Q6H PRN (Reason: acute knee pain/effusion) Qty: 10 RF: 0 warfarin [Coumadin] 5 mg tablet RF: 0 cefdinir 300 mg capsule 300 mg PO BID Qty: 10 RF: 0 Referrals: Barrera Roth MD [Primary Care Provider] -
--- NOTE | 2019-11-01 00:03 | DI.RAD.S_ITS ---
PROCEDURE: XR KNEE LT 3V INDICATIONS: left knee pain, lateral joint line TECHNIQUE: 3 views of the knee were acquired. COMPARISON: [facility], CR, XR KNEE RT 3V, 10/02/2019, 23:34. FINDINGS: Bones: No fractures or dislocations. Moderate tricompartmental degenerative changes. Chronic appearing cortical remodeling of the anterior distal left tibia underlying the large joint effusion. Otherwise, no suspicious bony lesions. Soft tissues: There is a large suprapatellar joint effusion with underlying chronic appearing cortical remodeling of the distal left tibia. Suggestion of intra-articular loose body in the anterior left knee seen in the inferior margins of the joint effusion on the lateral view. No suspicious soft tissue calcifications. IMPRESSION: 1. Large suprapatellar joint effusion with underlying, chronic appearing smooth cortical remodeling of the anterior cortex of the distal left tibia. Consider further evaluation with MRI of the left knee with and without intravenous contrast to exclude underlying intra-articular soft tissue lesion. 2. Moderate tricompartmental osteoarthrosis of the left knee. Dictated by: Harsha Toledo M.D. on 11/01/2019 at 7:47 Approved by: Harsha Toledo M.D. on 11/01/2019 at 7:53
[2019-11-01] MEDS: ACETAMINOPHEN 325 MG TABLET 650 MG PO (00:46)
[2019-11-01 00:53] VITALS: BP 104/78; PULSE 80; RESP 16; O2SAT 97
== END 2019-11-01 00:55 | disposition home or self-care (01) ==
PROVIDERS: Emergency Provider Emergency Medicine; PCP Internal Medicine
DX: S86.912A Strain of unspecified muscle(s) and tendon(s) at lower leg level, left leg, initial encounter (principal); I10 Essential (primary) hypertension; I48.0 Paroxysmal atrial fibrillation; Z79.01 Long term (current) use of anticoagulants; X58.XXXA Exposure to other specified factors, initial encounter; I48.91 Unspecified atrial fibrillation
CPT/HCPCS: 36415; 73562; 73700; 80048; 85025; 85610; 85651; 86140; 99283; 99284

== ENCOUNTER 2019-11-01 05:34 | Emergency (ER) | payer MEDICARE, OTHER, SELFPAY ==
--- NOTE | 2019-11-01 05:34 | DI.CT.S_ITS ---
PROCEDURE: CT LE LT W CON INDICATIONS: severe left knee pain, injury, cannot weight bear, second vi TECHNIQUE: Noncontrast 1-1.5 mm axial sections acquired from the mid-patella to the proximal tibia, with coronal and sagittal reformats. COMPARISON: [facility], CT, CT LE RT WO CON, 05/18/2018, 16:27. FINDINGS: Image quality: Excellent. Bones: Moderate tricompartmental osteoarthritis is seen more prominent in the medial femoral tibial compartment with joint space narrowing, subchondral sclerosis and marginal osteophyte formation. There is no acute fracture or dislocation. No suspicious intraosseous lesions. Soft tissues: Moderate amount of fluid is noted within the patellofemoral compartment. No calcified intra-articular loose body is seen. Distal quadriceps tendon and patellar tendon are grossly intact. Thickened medial collateral ligament near its femoral insertion is seen suggestive of sprain/partial thickness tear. Vascular calcifications are noted in posterior lower leg. IMPRESSION: 1. No acute left knee fracture or dislocation. Moderate tricompartmental osteoarthritis. 2. Moderate amount of joint fluid, no definite intra-articular loose body. Distal quadriceps tendon and patellar tendon are grossly intact. 3. Suggestive of medial collateral ligament sprain/partial thickness tear. If indicated, MRI of left knee can be done for further evaluation of internal derangement. Dictated by: Cecil Angela M.D. on 11/01/2019 at 8:19 Approved by: Cecil Angela M.D. on 11/01/2019 at 8:22
--- NOTE | 2019-11-01 05:35 | ED.LOWEXIN ---
HPI - Extremity Injury (Lower) General Chief Complaint: Extremity Problem,Nontraumatic Stated Complaint: Lt Knee Pain Time Seen by Provider: 11/01/19 05:48 Source: patient and EMS Mode of arrival: EMS Limitations: no limitations History of Present Illness HPI Narrative: 79-year-old male nonsmoker with history of AFib on Coumadin returns for the 2nd time this evening, this time by EMS. He was seen and evaluated earlier after tweaking his knee earlier in the day. He had physical examination and negative knee x-ray and was given some Tylenol and felt improvement. He states that he feels like he may have tweaked it while getting into the car to go home and over the evening his symptoms have worsened to the point where now he can no longer ambulate on it as it is too painful. He denies any fever chills. He has no nausea, vomiting or diarrhea. His pain is much worse with ambulation and improves with rest. His last INR was a few weeks ago and it was slightly elevated. He denies any recent medication changes otherwise. He now complains of worse pain and now has swelling MD complaint: knee injury Onset (ago): hour(s) Type of Injury: eversion Place: home Severity: severe Relieving factors: immobilization and rest Exacerbating factors: weight bearing and movement Context: walking Associated symptoms: swelling Other symptoms: none Related Data Home Medications Medication Instructions Recorded Confirmed albuterol sulfate [Proventil HFA] 1 puff INH PRN PRN #0 03/22/17 05/18/18 alfuzosin 10 mg PO QPM #0 03/22/17 05/18/18 mesalamine [Pentasa] 1,000 mg PO BID #0 03/24/17 05/18/18 calcium carbonate-vitamin D3 3 tab PO DAILY #0 03/31/17 05/18/18 ascorbic acid (vitamin C) 500 mg PO DAILY 05/18/18 05/18/18 aspirin 81 mg PO DAILY 05/18/18 05/18/18 carvedilol 12.5 mg PO DAILY 05/18/18 05/18/18 carvedilol 25 mg PO QPM 05/18/18 05/18/18 cholecalciferol (vitamin D3) 2,000 unit PO DIRECTED 05/18/18 05/18/18 [Vitamin D3] cyclobenzaprine 10 mg PO PRN PRN 05/18/18 05/18/18 eplerenone 25 mg PO DAILY 05/18/18 05/18/18 ferrous sulfate 325 mg PO BID 05/18/18 05/18/18 finasteride 5 mg PO DAILY 05/18/18 05/18/18 folic acid 1 mg PO DAILY 05/18/18 05/18/18 furosemide 40 mg PO QPM 05/18/18 05/18/18 furosemide 80 mg PO DAILY 05/18/18 05/18/18 loratadine 10 mg PO DAILY 05/18/18 05/18/18 nitroglycerin [Nitrostat] 0.4 mg SUBLINGUAL Q5-15M PRN 05/18/18 05/18/18 omeprazole 20 mg PO DAILY 05/18/18 05/18/18 potassium chloride 20 meq PO DAILY 05/18/18 05/18/18 simvastatin 20 mg PO BID 05/18/18 05/18/18 sodium fluoride-pot nitrate 1 applic DENTAL QPM 05/18/18 05/18/18 tramadol 50 mg PO Q6H 05/18/18 05/18/18 warfarin 7.5 mg PO TUTH 05/18/18 05/18/18 warfarin [Coumadin] 5 mg PO SUMOWEFRSA 05/18/18 05/18/18 warfarin [Coumadin] 06/29/18 Previous Rx's Medication Instructions Recorded oxycodone-acetaminophen [Percocet] 2 tab PO Q6H PRN #10 tab 05/27/18 cefdinir 300 mg PO BID #10 cap 08/14/19 Allergies Allergy/AdvReac Type Severity Reaction Status Date / Time ibuprofen Allergy Mild NOT GOOD Verified 08/14/19 11:29 FOR STOMACH BLEEDING iodine Allergy Mild UNKNOWN Verified 08/14/19 11:29 Sulfa (Sulfonamide Allergy Mild BURNED A Verified 08/14/19 11:29 Antibiotics) HOLE THRU INTESTINES thallium-201 Allergy Mild BREAKS OUT Verified 08/14/19 11:29 IN BLOTCHES AND ITCHING Review of Systems Constitutional Constitutional: Denies chills, Denies fatigue, Denies fever(s), Denies frequent falls, Denies lethargy and Denies weakness Eyes Eyes: Denies change in vision, Denies eye discharge, Denies irritation and Denies loss of vision ENT Ears, Nose, Mouth, and Throat: Denies change in voice, Denies dizziness, Denies neck pain, Denies sore throat and Denies throat swelling Cardiovascular Cardiovascular: Denies chest pain, Denies irregular heart rhythm, Denies lightheadedness, Denies palpitations, Denies dyspnea, Denies dyspnea on exertion and Denies orthopnea Respiratory Respiratory: Denies cough, Denies dyspnea, Denies dyspnea on exertion and Denies wheezing Gastrointestinal Gastrointestinal: Denies abdominal pain, Denies change in bowel habits, Denies diarrhea, Denies nausea and Denies vomiting Genitourinary Genitourinary: Denies hematuria, Denies flank pain, Denies urinary incontinence and Denies urinary urgency Musculoskeletal Musculoskeletal: Denies back pain, Reports joint swelling, Reports limited range of motion, Denies muscle weakness, Denies neck pain, Denies numbness and Denies tingling Integumentary/Breasts Skin/Breast: Denies pruritus, Denies erythema, Denies rash and Denies wounds Neurologic Neurologic: Denies behavioral changes, Denies confusion, Denies dizziness, Denies frequent falls, Denies loss of vision, Denies numbness, Denies tingling and Denies weakness Psychiatric Psychiatric: Denies anxiety, Denies behavioral changes, Denies confusion, Denies depression, Denies homicidal ideation and Denies suicidal ideation Endocrine Endocrine: Denies fatigue, Denies flushing and Denies palpitations Hematologic/Lymphatic Hematologic/Lymphatic: Denies easy bruising Allergic/Immunologic Allergic/Immunologic: Denies urticaria, Denies throat swelling and Denies wheezing Patient History Medical History Asthma (Chronic) Atrial fibrillation (Chronic) CHF (congestive heart failure) (Chronic) Osteoarthritis (Chronic) Pulmonary hypertension (Chronic) Surgical History H/O mitral valve replacement (Acute) Social History Smoking Status: Never smoker Smoking Status: Never smoker alcohol intake frequency: holidays/special occasions only Substance Use Type: does not use Exam Narrative Exam Narrative: GENERAL: [79] year old patient appears stated age. Well-nourished, well-developed patient, in mild distress. HEAD: Atraumatic. Normocephalic. EYES: Pupils equal round and reactive. Extraocular motions intact. No scleral icterus. No injection or drainage. ENT: Nose without bleeding, purulent drainage. Throat without erythema, tonsillar hypertrophy or exudate. Airway patent. NECK: Trachea midline. Non tender CARDIOVASCULAR: Regular rate and rhythm without murmurs, gallops, or rubs. RESPIRATORY: Clear to auscultation. Breath sounds equal bilaterally. No wheezes, rales, or rhonchi. GASTROINTESTINAL: Abdomen soft, non-tender, nondistended. EXTREMITIES: No effusion, redness, warmth. 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 No pain with axial loading. No ligamentous instability. BACK: Nontender without deformity or crepitance. No flank tenderness. NEURO: AOx3. SKIN: No rash or erythema of visible areas Initial Vital Signs Initial Vital Signs: Vital Signs Temperature 97.6 F 11/01/19 05:39 Pulse Rate 72 11/01/19 05:39 Respiratory Rate 16 11/01/19 05:39 Blood Pressure 135/68 11/01/19 05:39 Pulse Oximetry 95 11/01/19 05:39 Course Course Course Narrative: patient ambulates through the department with no difficulty CT shows no fracture or dislocation, labs reassuring. Orders Ordered: ED Orders 11/01/19 05:34 CT LE LT wo con Stat 11/01/19 05:50 Basic Metabolic Panel Stat C-Reactive Protein Quant Stat Complete Blood Count AUTO DIFF Stat Erythrocyte Sedimentation Rate Stat Prothrombin Time INR Stat Vital Signs Vital signs: Vital Signs - 8 hr 11/01/19 05:39 Temperature 97.6 F Pulse Rate 72 Respiratory Rate 16 Blood Pressure 135/68 Pulse Oximetry 95 MDM - Extremity Injury (Lower) Lab Data Result diagrams: 11/01/19 05:50 11/01/19 05:50 Labs: Lab Results 11/01/19 11/01/19 11/01/19 Range/Units 05:50 05:50 05:50 WBC 6.2 (4.5-11.0) X10^3/uL RBC 3.77 L (4.5-5.9) X10^6/uL Hgb 10.5 L (13.5-17.5) g/dL Hct 32.3 L (41-53) % MCV 85.7 (80-100) fL MCH 27.9 (26-34) PG MCHC 32.6 (30-36) % RDW 16.1 H (11.6-14.8) % Plt Count 134 L (150-400) X10^3/uL Neut % (Auto) 75.3 H (50-75) % Lymph % (Auto) 12.9 L (25-40) % [place] % (Auto) 9.1 (3-14) % Eos % (Auto) 1.9 L (2-4) % Baso % (Auto) 0.8 (0-2) % Neut # (Auto) 4700 (9586-6396) /uL Lymph # (Auto) 800 L (8771-6877) /uL [place] # (Auto) 600 (0-900) /uL Eos # (Auto) 100 (0-450) /uL Baso # (Auto) 100 (0-100) /uL ESR 12 (0-15) MM/HR PT (10.1-12.7) SECONDS INR (0.9-1.3) Sodium (137-145) mmol/L Potassium (3.4-5.1) mmol/L Chloride (98-107) mmol/L Carbon Dioxide (22-32) mmol/L BUN (9-20) mg/dL Creatinine (0.66-1.25) mg/dL Estimated GFR (>60) mL/min BUN/Creatinine Ratio (6-22) Glucose (80-110) mg/dL Calcium (8.4-10.2) mg/dL C-Reactive Protein < 0.5 (<1.0) mg/dL 11/01/19 11/01/19 Range/Units 05:50 05:50 WBC (4.5-11.0) X10^3/uL RBC (4.5-5.9) X10^6/uL Hgb (13.5-17.5) g/dL Hct (41-53) % MCV (80-100) fL MCH (26-34) PG MCHC (30-36) % RDW (11.6-14.8) % Plt Count (150-400) X10^3/uL Neut % (Auto) (50-75) % Lymph % (Auto) (25-40) % [place] % (Auto) (3-14) % Eos % (Auto) (2-4) % Baso % (Auto) (0-2) % Neut # (Auto) (5610-4876) /uL Lymph # (Auto) (2115-2847) /uL [place] # (Auto) (0-900) /uL Eos # (Auto) (0-450) /uL Baso # (Auto) (0-100) /uL ESR (0-15) MM/HR PT 36.5 H (10.1-12.7) SECONDS INR 3.2 H (0.9-1.3) Sodium 137 (137-145) mmol/L Potassium 4.1 (3.4-5.1) mmol/L Chloride 97 L (98-107) mmol/L Carbon Dioxide 36 H (22-32) mmol/L BUN 20 (9-20) mg/dL Creatinine 0.93 (0.66-1.25) mg/dL Estimated GFR > 60.0 (>60) mL/min BUN/Creatinine Ratio 21.5 (6-22) Glucose 112 H (80-110) mg/dL Calcium 9.3 (8.4-10.2) mg/dL C-Reactive Protein (<1.0) mg/dL Imaging Data CT LE: Radiologist's Impression: No fracture or dislocation Discharge Plan Departure Patient Disposition: Home Clinical Impression: Strain of left knee Qualifiers: Encounter type: initial encounter Qualified Code(s): S86.912A - Strain of unspecified muscle(s) and tendon(s) at lower leg level, left leg, initial encounter Instructions: DI for Knee Pain Activity Restrictions/Additional Instructions: *You have been diagnosed with [acute left knee pain] *What to do: *Take medications as directed *Follow up with your primary care provider in 2-3 days, call for an appointment. Let them know you were seen in the Emergency Department and that we ask that you be seen in follow up *Return to ER if you should have any new, worsening or concerning symptoms Prescriptions: No Action albuterol sulfate [Proventil HFA] 90 MCG/PUFF HFA aerosol inhaler 1 puff INH PRN PRN (Reason: Shortness Of Breath) Qty: 0 RF: 0 alfuzosin 10 MG tablet extended release 24 hr 10 mg PO QPM Qty: 0 RF: 0 mesalamine [Pentasa] 500 MG capsule, extended release 1,000 mg PO BID Qty: 0 RF: 0 calcium carbonate-vitamin D3 500-100 mg-unit Tablet,Chewable 3 tab PO DAILY Qty: 0 RF: 0 warfarin [Coumadin] 5 mg tablet 5 mg PO SUMOWE RF: 0 furosemide 40 MG tablet 80 mg PO DAILY RF: 0 cyclobenzaprine 10 mg Tablet 10 mg PO PRN PRN (Reason: Spasms) RF: 0 furosemide 40 mg Tablet 40 mg PO QPM RF: 0 carvedilol 25 mg Tablet 12.5 mg PO DAILY RF: 0 carvedilol 25 mg Tablet 25 mg PO QPM RF: 0 tramadol 50 mg Tablet 50 mg PO Q6H RF: 0 simvastatin 40 mg Tablet 20 mg PO BID RF: 0 ferrous sulfate 325 mg (65 mg iron) Tablet 325 mg PO BID RF: 0 ascorbic acid (vitamin C) 500 mg Tablet,Chewable 500 mg PO DAILY RF: 0 nitroglycerin [Nitrostat] 0.4 mg Tablet, Sublingual 0.4 mg SUBLINGUAL Q5-15M PRN (Reason: Chest Pain) RF: 0 folic acid 1 mg Tablet 1 mg PO DAILY RF: 0 finasteride 5 mg Tablet 5 mg PO DAILY RF: 0 loratadine 10 mg Tablet 10 mg PO DAILY RF: 0 sodium fluoride-pot nitrate 1.1-5 % Paste 1 applic Dental QPM RF: 0 omeprazole 20 mg Tablet,Delayed Release (Dr/Ec) 20 mg PO DAILY RF: 0 cholecalciferol (vitamin D3) [Vitamin D3] 2,000 unit Capsule 2,000 unit PO DIRECTED RF: 0 potassium chloride 20 mEq Tablet Extended Release 20 meq PO DAILY RF: 0 aspirin 81 MG tablet,delayed release (DR/EC) 81 mg PO DAILY RF: 0 eplerenone 25 mg Tablet 25 mg PO DAILY RF: 0 warfarin 5 mg tablet 7.5 mg PO TUTH RF: 0 oxycodone-acetaminophen [Percocet] 5-325 mg tablet 2 tab PO Q6H PRN (Reason: acute knee pain/effusion) Qty: 10 RF: 0 warfarin [Coumadin] 5 mg tablet RF: 0 cefdinir 300 mg capsule 300 mg PO BID Qty: 10 RF: 0 Referrals: Barrera oRth MD [Primary Care Provider] -
[2019-11-01 05:39] VITALS: BP 135/68; PULSE 72; RESP 16; TEMP 36.4; O2SAT 95
[2019-11-01 06:02] LABS: Add Manual Diff / Slide Review NO; Basophils Absolute Auto 100 /uL (0-100); Basophils Percent Auto 0.8 % (0-2); Eosinophils Absolute Auto 100 /uL (0-450); Eosinophils Percent Auto 1.9 % (2-4); Hematocrit 32.3 % (41-53); Hemoglobin 10.5 g/dL (13.5-17.5); Lymphocytes Absolute Auto 800 /uL (1100-4500); Lymphocytes Percent Auto 12.9 % (25-40); Mean Corpuscular HGB Conc 32.6 % (30-36); Mean Corpuscular Hemoglobin 27.9 PG (26-34); Mean Corpuscular Volume 85.7 fL (80-100); Monocytes Absolute Auto 600 /uL (0-900); Monocytes Percent Auto 9.1 % (3-14); Neutrophils Absolute Auto 4700 /uL (1500-7000); Neutrophils Percent Auto 75.3 % (50-75); Platelet Count 134 X10^3/uL (150-400); Red Blood Cell Count 3.77 X10^6/uL (4.5-5.9); Red Cell Distribution Width 16.1 % (11.6-14.8); White Blood Cell Count 6.2 X10^3/uL (4.5-11.0)
[2019-11-01 06:04] LABS: INR 3.2 (0.9-1.3); Prothrombin Time 36.5 SECONDS (10.1-12.7)
[2019-11-01 06:17] LABS: C-Reactive Protein Quant < 0.5 mg/dL (<1.0)
[2019-11-01 06:23] LABS: BUN Creatinine Ratio 21.5 (6-22); Blood Urea Nitrogen 20 mg/dL (9-20); Calcium 9.3 mg/dL (8.4-10.2); Carbon Dioxide 36 mmol/L (22-32); Chloride 97 mmol/L (98-107); Estimated Glomerular Filt Rate > 60.0 mL/min (>60); Glucose 112 mg/dL (80-110); HEMOLYSIS < 15 (0-50); Potassium 4.1 mmol/L (3.4-5.1); Sodium 137 mmol/L (137-145)
[2019-11-01 06:25] LABS: Erythrocyte Sedimentation Rate 12 MM/HR (0-15)
--- NOTE | 2019-11-01 06:56 | PC.NURSE ---
Pt had steady gait and stated the he was able to walk pain free.
[2019-11-01 07:10] VITALS: BP 125/66; PULSE 76; RESP 15; O2SAT 96
== END 2019-11-01 07:39 | disposition home or self-care (01) ==
LOC: ED 07:13
PROVIDERS: Emergency Provider Emergency Medicine; PCP Internal Medicine
DX: S86.912A Strain of unspecified muscle(s) and tendon(s) at lower leg level, left leg, initial encounter (principal); I48.91 Unspecified atrial fibrillation; Z79.01 Long term (current) use of anticoagulants
CPT/HCPCS: 36415; 73700; 80048; 85025; 85610; 85651; 86140; 99283; 99284

== ENCOUNTER 2020-01-01 17:06 | Emergency (ER) | payer MEDICARE, OTHER, SELFPAY ==
[2020-01-01 17:15] VITALS: BP 138/59; PULSE 68; RESP 17; TEMP 36.2; O2SAT 96; BMI 31.8
--- NOTE | 2020-01-01 17:20 | DI.RAD.S_ITS ---
PROCEDURE: XR KNEE RT 3V INDICATIONS: pain TECHNIQUE: 3 views of the knee were acquired. COMPARISON: 11/01/19. FINDINGS: Bones: No fractures or dislocations. No suspicious bony lesions. Small tricompartment osteophytes. Soft tissues: Large joint effusion. No suspicious soft tissue calcifications. IMPRESSION: Mild degenerative osteophytes. Continued large knee joint effusion. No evidence acute bony abnormality of the right knee. If clinical suspicion and/or symptoms persist, further assessment with repeat plain films, or advanced imaging (e.g., CT, MRI, or bone scan) may be helpful for further assessment. Dictated by: Tyler Meraz M.D. on 01/01/2020 at 16:59 Approved by: Tyler Meraz M.D. on 01/01/2020 at 17:01
--- NOTE | 2020-01-01 18:11 | ED.LOWEXIN ---
HPI - Extremity Injury (Lower) General Chief Complaint: Extremity Injury, Lower Stated Complaint: Pain in Both Knees, Extreme in RT Time Seen by Provider: 01/01/20 18:11 Source: patient Mode of arrival: Ambulatory Limitations: no limitations History of Present Illness HPI Narrative: 79M non smoker with history of Afib on coumadin with chronic knee pain presents with Right knee pain in the absence of obvious injury. He complains of swelling, pain with ambulation. He denies numbness, tingling, or weakness. He denies fever or chills. He had his INR checked yesterday and states it was over 3. He has been seen on multiple occasions for similar. MD complaint: knee injury Onset (ago): day(s) Place: home Relieving factors: rest Exacerbating factors: weight bearing and movement Other symptoms: none Related Data Home Medications Medication Instructions Recorded Confirmed albuterol sulfate [Proventil HFA] 1 puff INH PRN PRN #0 03/22/17 05/18/18 alfuzosin 10 mg PO QPM #0 03/22/17 05/18/18 mesalamine [Pentasa] 1,000 mg PO BID #0 03/24/17 05/18/18 calcium carbonate-vitamin D3 3 tab PO DAILY #0 03/31/17 05/18/18 ascorbic acid (vitamin C) 500 mg PO DAILY 05/18/18 05/18/18 aspirin 81 mg PO DAILY 05/18/18 05/18/18 carvedilol 12.5 mg PO DAILY 05/18/18 05/18/18 carvedilol 25 mg PO QPM 05/18/18 05/18/18 cholecalciferol (vitamin D3) 2,000 unit PO DIRECTED 05/18/18 05/18/18 [Vitamin D3] cyclobenzaprine 10 mg PO PRN PRN 05/18/18 05/18/18 eplerenone 25 mg PO DAILY 05/18/18 05/18/18 ferrous sulfate 325 mg PO BID 05/18/18 05/18/18 finasteride 5 mg PO DAILY 05/18/18 05/18/18 folic acid 1 mg PO DAILY 05/18/18 05/18/18 furosemide 40 mg PO QPM 05/18/18 05/18/18 furosemide 80 mg PO DAILY 05/18/18 05/18/18 loratadine 10 mg PO DAILY 05/18/18 05/18/18 nitroglycerin [Nitrostat] 0.4 mg SUBLINGUAL Q5-15M PRN 05/18/18 05/18/18 omeprazole 20 mg PO DAILY 05/18/18 05/18/18 potassium chloride 20 meq PO DAILY 05/18/18 05/18/18 simvastatin 20 mg PO BID 05/18/18 05/18/18 sodium fluoride-pot nitrate 1 applic DENTAL QPM 05/18/18 05/18/18 tramadol 50 mg PO Q6H 05/18/18 05/18/18 warfarin 7.5 mg PO TUTH 05/18/18 05/18/18 warfarin [Coumadin] 5 mg PO SUMOWEFRSA 05/18/18 05/18/18 warfarin [Coumadin] 06/29/18 Previous Rx's Medication Instructions Recorded oxycodone-acetaminophen [Percocet] 2 tab PO Q6H PRN #10 tab 05/27/18 cefdinir 300 mg PO BID #10 cap 08/14/19 Allergies Allergy/AdvReac Type Severity Reaction Status Date / Time ibuprofen Allergy Mild NOT GOOD Verified 01/01/20 17:15 FOR STOMACH BLEEDING iodine Allergy Mild UNKNOWN Verified 01/01/20 17:15 Sulfa (Sulfonamide Allergy Mild BURNED A Verified 01/01/20 17:15 Antibiotics) HOLE THRU INTESTINES thallium-201 Allergy Mild BREAKS OUT Verified 01/01/20 17:15 IN BLOTCHES AND ITCHING Review of Systems Constitutional Constitutional: Denies chills, Denies fatigue, Denies fever(s), Denies frequent falls, Denies lethargy and Denies weakness Eyes Eyes: Denies change in vision, Denies eye discharge, Denies irritation and Denies loss of vision ENT Ears, Nose, Mouth, and Throat: Denies change in voice, Denies dizziness, Denies neck pain, Denies sore throat and Denies throat swelling Cardiovascular Cardiovascular: Denies chest pain, Denies irregular heart rhythm, Denies lightheadedness, Denies palpitations, Denies dyspnea, Denies dyspnea on exertion and Denies orthopnea Respiratory Respiratory: Denies cough, Denies dyspnea, Denies dyspnea on exertion and Denies wheezing Gastrointestinal Gastrointestinal: Denies abdominal pain, Denies change in bowel habits, Denies diarrhea, Denies nausea and Denies vomiting Musculoskeletal Musculoskeletal: Reports arthralgias, Reports joint swelling, Reports limited range of motion, Denies neck pain and Denies numbness Integumentary/Breasts Skin/Breast: Denies pruritus, Denies erythema, Denies rash and Denies wounds Neurologic Neurologic: Denies behavioral changes, Denies confusion, Denies dizziness, Denies frequent falls, Denies loss of vision, Denies numbness and Denies weakness Psychiatric Psychiatric: Denies anxiety, Denies behavioral changes, Denies confusion, Denies depression, Denies homicidal ideation and Denies suicidal ideation Endocrine Endocrine: Denies fatigue, Denies flushing and Denies palpitations Hematologic/Lymphatic Hematologic/Lymphatic: Denies easy bruising Allergic/Immunologic Allergic/Immunologic: Denies urticaria, Denies throat swelling and Denies wheezing Patient History Medical History Asthma (Chronic) Atrial fibrillation (Chronic) CHF (congestive heart failure) (Chronic) Osteoarthritis (Chronic) Pulmonary hypertension (Chronic) Surgical History H/O mitral valve replacement (Acute) Social History Smoking Status: Never smoker Smoking Status: Never smoker alcohol intake frequency: holidays/special occasions only Substance Use Type: does not use Exam Narrative Exam Narrative: GENERAL: [79] year old patient appears stated age. Well-nourished, well-developed patient, in mild distress. HEAD: Atraumatic. Normocephalic. EYES: Pupils equal round and reactive. Extraocular motions intact. No scleral icterus. No injection or drainage. ENT: Nose without bleeding, purulent drainage. Throat without erythema, tonsillar hypertrophy or exudate. Airway patent. NECK: Trachea midline. Non tender CARDIOVASCULAR: Regular rate and rhythm without murmurs, gallops, or rubs. RESPIRATORY: Clear to auscultation. Breath sounds equal bilaterally. No wheezes, rales, or rhonchi. GASTROINTESTINAL: Abdomen soft, non-tender, nondistended. EXTREMITIES: Right knee pain and swelling, no redness, warmth. Effusion noted. No bony point tenderness. BACK: Nontender without deformity or crepitance. No flank tenderness. NEURO: AOx3. SKIN: No rash or erythema of visible areas Initial Vital Signs Initial Vital Signs: Vital Signs Temperature 97.2 F L 01/01/20 17:15 Pulse Rate 68 01/01/20 17:15 Respiratory Rate 17 01/01/20 17:15 Blood Pressure 138/59 L 01/01/20 17:15 Pulse Oximetry 96 01/01/20 17:15 Course Orders Ordered: ED Orders 01/01/20 17:20 XR knee RT 3V Stat 01/01/20 18:30 Hemoglobin and Hematocrit Stat Prothrombin Time INR Stat Discontinued Medications Hydrocodone Bitart/Acetaminophen ([place] 5/325) 1 tab PO NOW ONE Stop: 01/01/20 18:21 Last Admin: 01/01/20 18:27 Dose: 1 tab Documented by: MILLIE Hydrocodone Bitart/Acetaminophen ([place] 5/325 Prepack) 1 bottle MISC SEEINSTR ONE Stop: 01/01/20 19:27 Last Admin: 01/01/20 20:08 Dose: 1 bottle Documented by: MILLIE Bupivacaine HCl (Sensorcaine 0.5% (Pf)) 5 ml SUBCUT NOW ONE Stop: 01/01/20 18:21 Last Admin: 01/01/20 18:27 Dose: 5 ml Documented by: MILLIE Vital Signs Vital signs: Vital Signs - 8 hr 01/01/20 20:16 Pulse Rate 68 Blood Pressure 133/74 Pulse Oximetry 97 MDM - Extremity Injury (Lower) Lab Data Result diagrams: 01/01/20 18:30 Labs: Lab Results 01/01/20 01/01/20 Range/Units 18:30 18:30 Hgb 9.5 L (13.5-17.5) g/dL Hct 29.0 L (41-53) % PT 46.5 H (10.1-12.7) SECONDS INR 4.1 H (0.9-1.3) Imaging Data Extremity x-ray #1: Attestation: I personally reviewed and interpreted this imaging study as follows: My Impression: No Fx Radiologist's Impression: Tramaine Medeiros 79 M [address] [address] XRay Report Signed Patient: Tramaine Medeiros LMR#: [id number] : [id number]:[id number] Age/Sex: 79 / MDate of Service: 01/01/20 Loc: ED Accession Number: [id number] Procedure: XR knee RT 3V Ordering Provider: Katrina Freitas MD PROCEDURE: XR KNEE RT 3V INDICATIONS: pain TECHNIQUE: 3 views of the knee were acquired. COMPARISON: 11/01/19. FINDINGS: Bones: No fractures or dislocations. No suspicious bony lesions. Small tricompartment osteophytes. Soft tissues: Large joint effusion. No suspicious soft tissue calcifications. IMPRESSION: Mild degenerative osteophytes. Continued large knee joint effusion. No evidence acute bony abnormality of the right knee. If clinical suspicion and/or symptoms persist, further assessment with repeat plain films, or advanced imaging (e.g., CT, MRI, or bone scan) may be helpful for further assessment. Dictated by: Tyler Meraz M.D. on 01/01/2020 at 16:59 Approved by: Tyler Meraz M.D. on 01/01/2020 at 17:01 Discharge Plan Departure Patient Disposition: Home Clinical Impression: Hematoma Acute knee pain Qualifiers: Laterality: right Qualified Code(s): M25.561 - Pain in right knee Discharge Date/Time: 01/01/20 20:17 Instructions: DI for Knee Pain Activity Restrictions/Additional Instructions: *You have been diagnosed with [ knee pain with supratherapeutic INR and likely joint hematoma ] *What to do: *Take medications as directed *Follow up with your primary care provider and ortho on Friday, call for an appointment. Let them know you were seen in the Emergency Department and that we ask that you be seen in follow up. You will need to have your INR closely followed *Return to ER if you should have any new, worsening or concerning symptoms Prescriptions: No Action albuterol sulfate [Proventil HFA] 90 MCG/PUFF HFA aerosol inhaler 1 puff INH PRN PRN (Reason: Shortness Of Breath) Qty: 0 RF: 0 alfuzosin 10 MG tablet extended release 24 hr 10 mg PO QPM Qty: 0 RF: 0 mesalamine [Pentasa] 500 MG capsule, extended release 1,000 mg PO BID Qty: 0 RF: 0 calcium carbonate-vitamin D3 500-100 mg-unit Tablet,Chewable 3 tab PO DAILY Qty: 0 RF: 0 warfarin [Coumadin] 5 mg tablet 5 mg PO RF: 0 furosemide 40 MG tablet 80 mg PO DAILY RF: 0 cyclobenzaprine 10 mg Tablet 10 mg PO PRN PRN (Reason: Spasms) RF: 0 furosemide 40 mg Tablet 40 mg PO QPM RF: 0 carvedilol 25 mg Tablet 12.5 mg PO DAILY RF: 0 carvedilol 25 mg Tablet 25 mg PO QPM RF: 0 tramadol 50 mg Tablet 50 mg PO Q6H RF: 0 simvastatin 40 mg Tablet 20 mg PO BID RF: 0 ferrous sulfate 325 mg (65 mg iron) Tablet 325 mg PO BID RF: 0 ascorbic acid (vitamin C) 500 mg Tablet,Chewable 500 mg PO DAILY RF: 0 nitroglycerin [Nitrostat] 0.4 mg Tablet, Sublingual 0.4 mg SUBLINGUAL Q5-15M PRN (Reason: Chest Pain) RF: 0 folic acid 1 mg Tablet 1 mg PO DAILY RF: 0 finasteride 5 mg Tablet 5 mg PO DAILY RF: 0 loratadine 10 mg Tablet 10 mg PO DAILY RF: 0 sodium fluoride-pot nitrate 1.1-5 % Paste 1 applic Dental QPM RF: 0 omeprazole 20 mg Tablet,Delayed Release (Dr/Ec) 20 mg PO DAILY RF: 0 cholecalciferol (vitamin D3) [Vitamin D3] 2,000 unit Capsule 2,000 unit PO DIRECTED RF: 0 potassium chloride 20 mEq Tablet Extended Release 20 meq PO DAILY RF: 0 aspirin 81 MG tablet,delayed release (DR/EC) 81 mg PO DAILY RF: 0 eplerenone 25 mg Tablet 25 mg PO DAILY RF: 0 warfarin 5 mg tablet 7.5 mg PO TUTH RF: 0 oxycodone-acetaminophen [Percocet] 5-325 mg tablet 2 tab PO Q6H PRN (Reason: acute knee pain/effusion) Qty: 10 RF: 0 warfarin [Coumadin] 5 mg tablet RF: 0 cefdinir 300 mg capsule 300 mg PO BID Qty: 10 RF: 0 Referrals: Barrera Roth MD [Primary Care Provider] -
[2020-01-01] MEDS: BUPIVACAINE 0.5% (PF) VIAL 5 ML SUBCUT (18:27)
[2020-01-01] MEDS: HYDROCODONE/ACET 5/325 TABLET 1 TAB PO (18:27)
[2020-01-01 18:44] LABS: Hemoglobin 9.5 g/dL (13.5-17.5)
[2020-01-01 18:54] LABS: INR 4.1 (0.9-1.3); Prothrombin Time 46.5 SECONDS (10.1-12.7)
[2020-01-01] MEDS: HYDROCODONE/ACET 5/325 PREPACK 1 BOTTLE MISC (20:08)
[2020-01-01 20:16] VITALS: BP 133/74; PULSE 68; O2SAT 97
== END 2020-01-01 20:17 | disposition home or self-care (01) ==
PROVIDERS: Emergency Provider Emergency Medicine; PCP Internal Medicine
DX: S80.01XA Contusion of right knee, initial encounter (principal); M25.561 Pain in right knee; I48.91 Unspecified atrial fibrillation; Z79.01 Long term (current) use of anticoagulants
CPT/HCPCS: 36415; 73562; 85014; 85018; 85610; 99282; 99283

== ENCOUNTER 2020-01-04 13:47 | Observation (INO) | payer MEDICARE, OTHER, SELFPAY ==
[2020-01-04] VITALS (15 sets, daily range): BP systolic 121–158; BP diastolic 63–86; PULSE 80–90; RESP 16–22; TEMP 36.7; O2SAT 93–98; BMI 31.8
--- NOTE | 2020-01-04 14:15 | DI.US.S_ITS ---
PROCEDURE: US SCROTUM INDICATIONS: RIGHT PAIN AND SWELLING TECHNIQUE: Real-time scanning was performed of the scrotum and testicles, with image documentation. Color and pulse Doppler interrogation was performed of both testicles. COMPARISON: None. FINDINGS: Right: Testicle is normal in size at 4.0 x 1.7 x 2.4 cm, and homogenous in echotexture. Heterogeneous epididymis is normal in overall size and morphology. There is tubular ectasia of the rete testes, a benign finding. Hydrocele and varicoceles are noted. Overlying scrotal skin is normal in thickness. The Left: Testicle is normal in size at 2.8 x 1.3 x 2.2 cm, and homogeneous in echotexture. Heterogeneous epididymis is normal in overall size and morphology. Hydrocele and varicoceles are noted. Incidental intratesticular cysts are visualized. Overlying scrotal skin is normal in thickness. Incidental note of a 4 mm scrotal pleural. There is a 4 mm intratesticular calcification likely sequela of prior infection/inflammation or trauma. Doppler: Color and pulse Doppler demonstrate normal and symmetric arterial flow in both testicles. IMPRESSION: 1. Bilateral hydroceles and varicoceles. 2. Bilateral testicles/epididymis without acute sonographic abnormalities. Dictated by: Harsha Toledo M.D. on 01/04/2020 at 15:52 Approved by: Harsha Toledo M.D. on 01/04/2020 at 16:03
[2020-01-04 14:33] LABS: Add Manual Diff / Slide Review NO; Basophils Absolute Auto 0 /uL (0-100); Basophils Percent Auto 0.4 % (0-2); Eosinophils Absolute Auto 100 /uL (0-450); Eosinophils Percent Auto 1.3 % (2-4); Hematocrit 30.2 % (41-53); Hemoglobin 9.8 g/dL (13.5-17.5); Lymphocytes Absolute Auto 700 /uL (1100-4500); Lymphocytes Percent Auto 10.6 % (25-40); Mean Corpuscular HGB Conc 32.6 % (30-36); Mean Corpuscular Hemoglobin 27.8 PG (26-34); Mean Corpuscular Volume 85.2 fL (80-100); Monocytes Absolute Auto 900 /uL (0-900); Monocytes Percent Auto 14.5 % (3-14); Neutrophils Absolute Auto 4700 /uL (1500-7000); Neutrophils Percent Auto 73.2 % (50-75); Platelet Count 154 X10^3/uL (150-400); Red Blood Cell Count 3.55 X10^6/uL (4.5-5.9); Red Cell Distribution Width 15.8 % (11.6-14.8); White Blood Cell Count 6.5 X10^3/uL (4.5-11.0)
[2020-01-04] MEDS: MORPHINE 2 MG/ML INJ IV ×2 (14:35→17:19)
--- NOTE | 2020-01-04 14:36 | ED_ITS ---
HPI - Extremity Problem General Chief complaint: Extremity Problem,Nontraumatic Stated complaint: Bilateral knee pain and groin pain Time Seen by Provider: 01/04/20 14:01 Source: patient Mode of arrival: Wheelchair Limitations: no limitations History of Present Illness HPI Narrative: The patient is a [place] 79-year-old male on Coumadin presenting with right knee swelling, he was seen evaluated here on 09/02/2019 with at this pain. There was talk about aspirating the right knee however due to elevated INR was decided against it. He has not taken his Coumadin for the last 2 nights. He was supposed to follow-up with his PCP and orthopedics but has yet to do so. He is also having right groin pain which started today. It is tender to touch she thinks that his testicle hurts as well. He has not had any fever or chills. MD Complaint: extremity pain and extremity swelling Onset (ago): day(s) Pain Consistency: constant Location: right and knee Related Data Home Medications Medication Instructions Recorded Confirmed albuterol sulfate [Proventil HFA] 1 puff INH PRN PRN #0 03/22/17 05/18/18 alfuzosin 10 mg PO QPM #0 03/22/17 05/18/18 mesalamine [Pentasa] 1,000 mg PO BID #0 03/24/17 05/18/18 calcium carbonate-vitamin D3 3 tab PO DAILY #0 03/31/17 05/18/18 ascorbic acid (vitamin C) 500 mg PO DAILY 05/18/18 05/18/18 aspirin 81 mg PO DAILY 05/18/18 05/18/18 carvedilol 12.5 mg PO DAILY 05/18/18 05/18/18 carvedilol 25 mg PO QPM 05/18/18 05/18/18 cholecalciferol (vitamin D3) 2,000 unit PO DIRECTED 05/18/18 05/18/18 [Vitamin D3] cyclobenzaprine 10 mg PO PRN PRN 05/18/18 05/18/18 eplerenone 25 mg PO DAILY 05/18/18 05/18/18 ferrous sulfate 325 mg PO BID 05/18/18 05/18/18 finasteride 5 mg PO DAILY 05/18/18 05/18/18 folic acid 1 mg PO DAILY 05/18/18 05/18/18 furosemide 40 mg PO QPM 05/18/18 05/18/18 furosemide 80 mg PO DAILY 05/18/18 05/18/18 loratadine 10 mg PO DAILY 05/18/18 05/18/18 nitroglycerin [Nitrostat] 0.4 mg SUBLINGUAL Q5-15M PRN 05/18/18 05/18/18 omeprazole 20 mg PO DAILY 05/18/18 05/18/18 potassium chloride 20 meq PO DAILY 05/18/18 05/18/18 simvastatin 20 mg PO BID 05/18/18 05/18/18 sodium fluoride-pot nitrate 1 applic DENTAL QPM 05/18/18 05/18/18 tramadol 50 mg PO Q6H 05/18/18 05/18/18 warfarin 7.5 mg PO TUTH 05/18/18 05/18/18 warfarin [Coumadin] 5 mg PO SUMOWEFRSA 05/18/18 05/18/18 warfarin [Coumadin] 06/29/18 Previous Rx's Medication Instructions Recorded oxycodone-acetaminophen [Percocet] 2 tab PO Q6H PRN #10 tab 05/27/18 cefdinir 300 mg PO BID #10 cap 08/14/19 Allergies Allergy/AdvReac Type Severity Reaction Status Date / Time ibuprofen Allergy Mild NOT GOOD Verified 01/04/20 13:59 FOR STOMACH BLEEDING iodine Allergy Mild UNKNOWN Verified 01/04/20 13:59 Sulfa (Sulfonamide Allergy Mild BURNED A Verified 01/04/20 13:59 Antibiotics) HOLE THRU INTESTINES thallium-201 Allergy Mild BREAKS OUT Verified 01/04/20 13:59 IN BLOTCHES AND ITCHING Review of Systems Review of Systems ROS Unobtainable: All systems reviewed & are unremarkable except as noted in HPI and below Constitutional Constitutional: Denies chills, Denies fever(s), Denies lethargy and Denies weakness Eyes Eyes: Denies change in vision, Denies eye discharge, Denies irritation and Denies loss of vision ENT Ears, Nose, Mouth, and Throat: Denies change in voice, Denies neck pain and Denies sore throat Cardiovascular Cardiovascular: Denies chest pain, Denies irregular heart rhythm, Denies lightheadedness, Denies palpitations, Denies dyspnea, Denies dyspnea on exertion and Denies orthopnea Respiratory Respiratory: Denies cough, Denies dyspnea, Denies dyspnea on exertion and Denies wheezing Gastrointestinal Gastrointestinal: Denies abdominal pain, Denies change in bowel habits, Denies diarrhea, Denies nausea and Denies vomiting Musculoskeletal Musculoskeletal: Reports as per HPI, Denies deformity, Reports arthralgias, Reports joint swelling, Reports limited range of motion and Denies neck pain Integumentary/Breasts Skin/Breast: Denies pruritus, Denies erythema, Denies rash and Denies wounds Neurologic Neurologic: Denies loss of vision and Denies weakness Endocrine Endocrine: Denies palpitations Allergic/Immunologic Allergic/Immunologic: Denies wheezing Patient History Medical History Asthma (Chronic) Atrial fibrillation (Chronic) CHF (congestive heart failure) (Chronic) Osteoarthritis (Chronic) Pulmonary hypertension (Chronic) Surgical History H/O mitral valve replacement (Acute) Social History Smoking Status: Never smoker Smoking Status: Never smoker alcohol intake frequency: holidays/special occasions only Substance Use Type: does not use Exam Initial Vital Signs Initial Vital Signs: Vital Signs Blood Pressure 136/73 01/04/20 13:51 GENERAL: Alert pleasant well-appearing elderly male HEENT: Head atraumatic,EOMI, pupils reactive, CARDIOVASCULAR: Regular rate and rhythm without murmurs, rubs or gallops. RESPIRATORY: Breath sounds equal bilaterally, no wheezes rales or rhonchi. ABDOMEN: Soft, nontender. Normoactive bowel sounds all 4 quadrants. No guarding or rebound. : No CVA tenderness, no significant testicle mode swelling no hernia appreciated, he does have some mild swelling of the inguinal area and it is tender to touch. Nurse hazel present for exam EXTREMITIES: Normal range of motion, no clubbing or edema. Neurovascularly intact. Right knee is swollen, no erythema decreased range of motion due to swelling mild tender to touch knee NEUROLOGICAL: Alert and oriented x4.Normal gait and speech. Cranial nerves II through XII grossly intact. SKIN: Warm, dry, no laceration, no petechiae, no rashes or lesions. Course Orders Ordered: ED Orders 01/04/20 14:15 US scrotum Stat 01/04/20 14:25 Basic Metabolic Panel Stat Complete Blood Count AUTO DIFF Stat Prothrombin Time INR Stat 01/04/20 16:46 Consult to Physical Therapy Evaluate & Treat 01/04/20 18:00 CT abdomen pelvis w con Stat Urinalysis and Microscopic Stat Discontinued Medications Morphine Sulfate (Morphine) 2 mg IV NOW ONE Stop: 01/04/20 14:16 Last Admin: 01/04/20 14:35 Dose: 2 mg Documented by: BENITA Morphine Sulfate (Morphine) 2 mg IV NOW ONE Stop: 01/04/20 16:47 Last Admin: 01/04/20 17:19 Dose: 2 mg Documented by: BENITA Consultations Consultation #1: Dr. zafar, orthopedics been updated on patient's symptoms test results she is familiar with the patient from this weekend. Agrees with elevation of INR no need for arthrocentesis at this time. Time: 17:16 Vital Signs Vital signs: Vital Signs - 8 hr 01/04/20 13:51 01/04/20 13:55 01/04/20 14:00 Temperature 98.1 F Pulse Rate 82 85 Respiratory Rate 16 Blood Pressure 136/73 136/73 139/80 Pulse Oximetry 95 96 01/04/20 14:30 01/04/20 15:00 01/04/20 15:01 Temperature Pulse Rate 83 80 Respiratory Rate Blood Pressure 128/67 140/75 Pulse Oximetry 97 98 MDM - Extremity (Nontraumatic) Lab Data Result diagrams: 01/04/20 14:25 01/04/20 14:25 Labs: Lab Results 01/04/20 01/04/20 01/04/20 Range/Units 14:25 14:25 14:25 WBC 6.5 (4.5-11.0) X10^3/uL RBC 3.55 L (4.5-5.9) X10^6/uL Hgb 9.8 L (13.5-17.5) g/dL Hct 30.2 L (41-53) % MCV 85.2 (80-100) fL MCH 27.8 (26-34) PG MCHC 32.6 (30-36) % RDW 15.8 H (11.6-14.8) % Plt Count 154 (150-400) X10^3/uL Neut % (Auto) 73.2 (50-75) % Lymph % (Auto) 10.6 L (25-40) % [place] % (Auto) 14.5 H (3-14) % Eos % (Auto) 1.3 L (2-4) % Baso % (Auto) 0.4 (0-2) % Neut # (Auto) 4700 (5125-8938) /uL Lymph # (Auto) 700 L (5138-5983) /uL [place] # (Auto) 900 (0-900) /uL Eos # (Auto) 100 (0-450) /uL Baso # (Auto) 0 (0-100) /uL PT 27.8 H D (10.1-12.7) SECONDS INR 2.4 H (0.9-1.3) Sodium 137 (137-145) mmol/L Potassium 3.7 (3.4-5.1) mmol/L Chloride 93 L (98-107) mmol/L Carbon Dioxide 37 H (22-32) mmol/L BUN 20 (9-20) mg/dL Creatinine 0.71 (0.66-1.25) mg/dL Estimated GFR > 60.0 (>60) mL/min BUN/Creatinine Ratio 28.2 H (6-22) Glucose 105 (80-110) mg/dL Calcium 9.4 (8.4-10.2) mg/dL Urine Color Urine Appearance Urine pH (4.5-8.0) Ur Specific [place] (1.000-1.035) Urine Protein (Negative) Urine Glucose (UA) (Negative) g/dL Urine Ketones (NEGATIVE) Urine Occult Blood (Negative) Urine Nitrate (Negative) Urine Bilirubin (NEGATIVE) Urine Urobilinogen (0.2) E.U./dL Ur Leukocyte Esterase (NEGATIVE) Urine RBC (0-5/HPF) Urine WBC (0-5/HPF) Ur Squamous Epith Cells (0-5/HPF) Urine Bacteria (None) Ur Culture Indicated? 01/04/20 Range/Units 18:00 WBC (4.5-11.0) X10^3/uL RBC (4.5-5.9) X10^6/uL Hgb (13.5-17.5) g/dL Hct (41-53) % MCV (80-100) fL MCH (26-34) PG MCHC (30-36) % RDW (11.6-14.8) % Plt Count (150-400) X10^3/uL Neut % (Auto) (50-75) % Lymph % (Auto) (25-40) % [place] % (Auto) (3-14) % Eos % (Auto) (2-4) % Baso % (Auto) (0-2) % Neut # (Auto) (1247-5112) /uL Lymph # (Auto) (6915-3475) /uL [place] # (Auto) (0-900) /uL Eos # (Auto) (0-450) /uL Baso # (Auto) (0-100) /uL PT (10.1-12.7) SECONDS INR (0.9-1.3) Sodium (137-145) mmol/L Potassium (3.4-5.1) mmol/L Chloride (98-107) mmol/L Carbon Dioxide (22-32) mmol/L BUN (9-20) mg/dL Creatinine (0.66-1.25) mg/dL Estimated GFR (>60) mL/min BUN/Creatinine Ratio (6-22) Glucose (80-110) mg/dL Calcium (8.4-10.2) mg/dL Urine Color Yellow Urine Appearance Clear Urine pH 7.0 (4.5-8.0) Ur Specific [place] 1.010 (1.000-1.035) Urine Protein Trace H (Negative) Urine Glucose (UA) Negative (Negative) g/dL Urine Ketones 1+ H (NEGATIVE) Urine Occult Blood Negative (Negative) Urine Nitrate Negative (Negative) Urine Bilirubin Negative (NEGATIVE) Urine Urobilinogen 0.2 (0.2) E.U./dL Ur Leukocyte Esterase Negative (NEGATIVE) Urine RBC None seen (0-5/HPF) Urine WBC 0-1/hpf (0-5/HPF) Ur Squamous Epith Cells 0-1 /hpf (0-5/HPF) Urine Bacteria None seen (None) Ur Culture Indicated? Cult not indicated Imaging Data US scrotum: Radiologist's Impression: PROCEDURE: US SCROTUM INDICATIONS: RIGHT PAIN AND SWELLING TECHNIQUE: Real-time scanning was performed of the scrotum and testicles, with image documentation. Color and pulse Doppler interrogation was performed of both testicles. COMPARISON: None. FINDINGS: Right: Testicle is normal in size at 4.0 x 1.7 x 2.4 cm, and homogenous in echotexture. Heterogeneous epididymis is normal in overall size and morphology. There is tubular ectasia of the rete testes, a benign finding. Hydrocele and varicoceles are noted. Overlying scrotal skin is normal in thickness. The Left: Testicle is normal in size at 2.8 x 1.3 x 2.2 cm, and homogeneous in echotexture. Heterogeneous epididymis is normal in overall size and morphology. Hydrocele and varicoceles are noted. Incidental intratesticular cysts are visualized. Overlying scrotal skin is normal in thickness. Incidental note of a 4 mm scrotal pleural. There is a 4 mm intratesticular calcification likely sequela of prior infection/inflammation or trauma. Doppler: Color and pulse Doppler demonstrate normal and symmetric arterial flow in both testicles. IMPRESSION: 1. Bilateral hydroceles and varicoceles. 2. Bilateral testicles/epididymis without acute sonographic abnormalities. Dictated by: Harsha Toledo M.D. on 01/04/2020 at 15:52 MDM Narrative Medical decision making narrative: Patient continues to be quite tender in his right groin. Will order CT for further evaluation no hernia is appreciated. His knee he is able to flex some it is swollen it is non erythematous he is afebrile without leukocytosis at this time low suspicion for septic joint. Have discussed case with Orthopedics likely need effusion. No indication for arthrocentesis at this time. Nursing staff saw him a few days ago they state that he is not getting around as he initially as he was, in fact he is requiring significant assistance. Physical therapy was called for evaluation however they were unavailable due to the time of the day. Discussed case with Dr. abraham who agrees for observation for pain control. She is informed that the abdominal CT has been done and the result is pending. Discharge Plan Departure Patient Disposition: Admitted as Observation Clinical Impression: Effusion of right knee Admit Date/Time: 01/04/20 18:19 Admit Provider: Josy Abraham
[2020-01-04 14:40] LABS: INR 2.4 (0.9-1.3); Prothrombin Time 27.8 SECONDS (10.1-12.7)
--- NOTE | 2020-01-04 18:00 | DI.CT.S_ITS ---
PROCEDURE: CT ABDOMEN PELVIS W CON INDICATIONS: right groin pain TECHNIQUE: After the administration of intravenous contrast, 5 mm thick sections acquired from the diaphragm to the symphysis. 5 mm coronal and sagittal reformats were acquired. For radiation dose reduction, the following was used: automated exposure control, adjustment of mA and/or kV according to patient size. COMPARISON: [facility], , SCROTUM, 01/04/2020, 14:47. FINDINGS: Image quality: Excellent. ABDOMEN: Lung bases: Lung bases are clear. Heart size is prominent. Mitral valve replacement. Post median sternotomy. Solid organs: Liver is normal in size. Hepatic steatosis. Gallbladder is distended. A calcified gallstones seen. Biliary system is non dilated. Pancreas enhances normally. Spleen is normal in size and enhancement. No adrenal nodules. Kidneys demonstrate normal size and enhancement, without hydronephrosis. Peritoneum and bowel: Bowel loops demonstrate normal wall thickness and caliber. Normal appendix. No free fluid or air. Nodes and vessels: No retroperitoneal or mesenteric adenopathy by size criteria. Aorta and inferior vena cava are normal in size. Miscellaneous: No ventral hernias. PELVIS: Genitourinary: Bladder wall thickness is normal. Mild prostatomegaly. Probable prostate radiotherapy seeds versus surgical clips. Miscellaneous: Fat-containing right inguinal hernia versus lipomatous hypertrophy of the spermatic cord, (2/). Bones: No suspicious bony lesions. No vertebral body compression fractures. Moderate degenerative change. IMPRESSION: Question of fat-containing right inguinal hernia versus lipomatous hypertrophy of the spermatic cord. No bowel obstruction. No free fluid. Additional findings: Hepatic steatosis. Cholelithiasis. Normal appendix. Dictated by: Devon Rodney M.D. on 01/04/2020 at 18:54 Approved by: Devon Rodney M.D. on 01/04/2020 at 18:59
[2020-01-04 18:04] LABS: Bacteria Urine None Seen; RBC Urine None Seen (0-5/HPF)
[2020-01-04 18:06] LABS: Appearance Urine UA CLEAR; Bilirubin Urine UA NEGATIVE (NEGATIVE); Color Urine UA YELLOW; Glucose Urine UA NEGATIVE (Negative); Ketones Urine UA 1+ (NEGATIVE); Leukocyte Esterase Urine UA NEGATIVE (NEGATIVE); Nitrite Urine UA NEGATIVE (Negative); Occult Blood Urine UA NEGATIVE (Negative); Protein Urine UA TRACE (Negative); Urobilinogen Urine UA 0.2 E.U./dL (0.2)
[2020-01-04 18:09] LABS: BUN Creatinine Ratio 28.2 (6-22); Blood Urea Nitrogen 20 mg/dL (9-20); Calcium 9.4 mg/dL (8.4-10.2); Chloride 93 mmol/L (98-107); Estimated Glomerular Filt Rate > 60.0 mL/min (>60); Glucose 105 mg/dL (80-110); HEMOLYSIS < 15 (0-50); Potassium 3.7 mmol/L (3.4-5.1); Sodium 137 mmol/L (137-145)
[2020-01-04 18:12] LABS: Culture Indicated Urine Cult Not Indicated; Squamous Epithelial Cell Urine 0-1 /HPF (0-5/HPF); WBC Urine 0-1/HPF (0-5/HPF)
[2020-01-04 18:16] LABS: Carbon Dioxide 37 mmol/L (22-32)
[2020-01-04] MEDS: TRAMADOL 50 MG TABLET PO (22:47)
[2020-01-04] MEDS: DOCUSATE 100 MG CAPSULE PO (22:48)
[2020-01-04] MEDS: ACETAMINOPHEN 325 MG TABLET 650 MG PO (22:48)
[2020-01-05] VITALS: BP 125/75; PULSE 94; RESP 16; TEMP 36.9; O2SAT 94
--- NOTE | 2020-01-05 00:51 | PC.NURSE ---
Admit note: Don brought from ER via stretcher, transferred to bed. VS stable, he reports groin pain and bilateral knee pain. Told me he hasn't been walking too good lately. Ice pack applied to right knee, I notified Priyanka PRATT of patient's complaint of pain and she said she would enter orders soon. structural engineering drafting officer did medication reconcile using a list that patient's daughter faxed. Coumadin ordered in [facility] along with other home medications. Nursing asked Priyanka PRATT if she wanted us to hold the Coumadin, as patient states he has not taken it for 2 days, in hopes that orthopedics could drain my knee. Priyanka said do not give Coumadin, med now on hold.
[2020-01-05] MEDS: HYDROCODONE/ACET 5/325 TABLET 1 TAB PO (01:40)
--- NOTE | 2020-01-05 02:11 | P.HP_ITS ---
History of Present Illness History of Present Illness Date Patient Seen: 01/04/20 Time Patient Seen: 21:15 Chief complaint: Bilateral knee pain and groin pain Narrative: Tramaine Lopez is an 79-year-old male who presents with a several day history of right-sided knee pain. He had been seen in the emergency department 2 days prior to admission and was diagnosed with such and at that time was sent home with nonsteroidal anti-inflammatories and instructions for icing. He comes in today with quite a bit of pain in the right knee as well as swelling and in the emergency department they determined that he had a heme arthrosis. He also had complaints of right inguinal pain and swelling and inform me that he has had a hernia there almost lifelong. He states that he gets irritated with his incontinence brief. In the emergency department they did a CT of the abdomen and pelvis and x-ray of the knee which did not show any emergent findings only that he had a large hematoma of his knee. The patient is rather anxious because he is the primary caregiver of his . He denies any fever sweats or chills, he has been quite weak, denies shortness of breath, chest pain, nausea or vomiting, abdominal pain other than the right inguinal area, diarrhea or cons tipation. He does have chronic urinary incontinence and uses walking assistive devices both a cane and a walker as well as walking independently. The patient is anticoagulated on warfarin for atrial fibrillation as well as a left ventricle repair in 2017 with 2 stents placed. His INR is currently 2.4. He also has BPH and hyperlipidemia. Labs drawn in the ED included a WBC of 6.5, RBC 3.55, hemoglobin 9.8, hematocrit 30.2, platelet count of a 154, INR was 2.4, and his protime was 27.8. Sodium was 137, potassium 3.7, chloride 93, CO2 37, BUN 20, creatinine 0.71 with a GFR of greater than 60, glucose 105, and calcium 9.4. UA was negative for UTI. Patient History Medical History Asthma (Chronic) Atrial fibrillation (Chronic) CHF (congestive heart failure) (Chronic) Osteoarthritis (Chronic) Pulmonary hypertension (Chronic) Surgical History H/O mitral valve replacement (Acute) Family & Social History Family History Mother Congestive heart failure Father Coronary artery disease Social History: household members spouse Prior Living Arrangements House Safety & Behavioral: Feels Safe in Current Yes Environment Been Physically Hurt or No Threatened By a Person Suicidal Ideation Description None Tobacco & Substance use: Smoking Status Never smoker alcohol intake frequency holiday/special occasion Substance Use Type does not use Meds Home Medications and Allergies Home Medications Medication Instructions Recorded Confirmed Type albuterol sulfate [Proventil HFA] 1 puff INH PRN PRN #0 03/22/17 01/04/20 History alfuzosin 10 mg PO QPM #0 03/22/17 01/04/20 History Pentasa 1,000 mg PO BID #0 03/24/17 01/04/20 History calcium carbonate-vitamin D3 3 tab PO DAILY #0 03/31/17 01/04/20 History ascorbic acid (vitamin C) 500 mg PO DAILY 05/18/18 01/04/20 History aspirin 81 mg PO DAILY 05/18/18 01/04/20 History carvedilol 12.5 mg PO DAILY 05/18/18 01/04/20 History cholecalciferol (vitamin D3) 2,000 unit PO DIRECTED 05/18/18 01/04/20 History [Vitamin D3] cyclobenzaprine 10 mg PO PRN PRN 05/18/18 01/04/20 History eplerenone 25 mg PO DAILY 05/18/18 01/04/20 History ferrous sulfate 325 mg PO BID 05/18/18 01/04/20 History finasteride 5 mg PO DAILY 05/18/18 01/04/20 History folic acid 1 mg PO DAILY 05/18/18 01/04/20 History furosemide 40 mg PO QPM 05/18/18 01/04/20 History furosemide 80 mg PO DAILY 05/18/18 01/04/20 History loratadine 10 mg PO DAILY 05/18/18 01/04/20 History nitroglycerin [Nitrostat] 0.4 mg SUBLINGUAL Q5-15M PRN 05/18/18 01/04/20 History omeprazole 20 mg PO DAILY 05/18/18 01/04/20 History potassium chloride 20 meq PO DAILY 05/18/18 01/04/20 History simvastatin 20 mg PO BID 05/18/18 01/04/20 History sodium fluoride-pot nitrate 1 applic DENTAL QPM 05/18/18 01/04/20 History tramadol 50 mg PO Q6H 05/18/18 01/04/20 History warfarin 7.5 mg PO TUTH 05/18/18 01/04/20 History warfarin [Coumadin] 5 mg PO SUMOWEFRSA 05/18/18 01/04/20 History oxycodone-acetaminophen [Percocet] 2 tab PO Q6H PRN #10 tab 05/27/18 01/04/20 Rx warfarin [Coumadin] 06/29/18 History cefdinir 300 mg PO BID #10 cap 08/14/19 01/04/20 Rx Allergies Allergy/AdvReac Type Severity Reaction Status Date / Time ibuprofen Allergy Mild NOT GOOD Verified 01/04/20 13:59 FOR STOMACH BLEEDING iodine Allergy Mild UNKNOWN Verified 01/04/20 13:59 Sulfa (Sulfonamide Allergy Mild BURNED A Verified 01/04/20 13:59 Antibiotics) HOLE THRU INTESTINES thallium-201 Allergy Mild BREAKS OUT Verified 01/04/20 13:59 IN BLOTCHES AND ITCHING terazosin Allergy Hypotension Verified 01/04/20 19:20 spironolactone AdvReac Verified 01/04/20 19:20 Review of Systems Review of Systems ROS: Yes All systems reviewed with the patient and are negative except as otherwise documented Exam Vital Signs (past 8 hours): - 01/04/20 19:00 01/04/20 19:50 01/05/20 00:00 Temperature 98.1 F 98.4 F Pulse Rate 82 83 94 H Respiratory Rate 22 16 Blood Pressure 146/86 H 125/75 Pulse Oximetry 93 95 94 Oxygen Delivery Method Room Air Oxygen Flow Rate 0 Narrative Exam Narrative: Vitals: Temp 98.4?, blood pressure 125/75, heart rate 94, respiratory rate 16, oxygen saturation 94% on room air, weight 85 kilos and BMI is 31.8 Gen: Alert, oriented, well-developed 78 y.o. male, sleeping in the yamini m when I came in HEENT: normocephalic, atraumatic, conjunctiva clear, sclera non-icteric, oral mucosa pink and moist Neck: supple, full ROM, no JVD, trachea is midline Resp: Lungs CTA, non-labored breathing CV: RRR, no murmur or rubs Abd: soft, non-tender, normoactive BTs : Unable to appreciate inguinal hernia on of the right-side Skin: no lesions or rashes, dry and intact Neuro: Alert and oriented X 4 w/no focal deficits. Speech clear and coherent. Extremities: Has swelling distal to the right patella, moves all 4 extremities, is ambulatory, negative Edwin?s sign Psyche: normal mood and affect. Objective Labs Result Diagrams: 01/04/20 14:25 01/04/20 14:25 Labs: Laboratory Results - last 24 hr 01/04/20 01/04/20 01/04/20 14:25 14:25 14:25 WBC 6.5 RBC 3.55 L Hgb 9.8 L Hct 30.2 L MCV 85.2 MCH 27.8 MCHC 32.6 RDW 15.8 H Plt Count 154 Neut % (Auto) 73.2 Lymph % (Auto) 10.6 L [place] % (Auto) 14.5 H Eos % (Auto) 1.3 L Baso % (Auto) 0.4 Neut # (Auto) 4700 Lymph # (Auto) 700 L [place] # (Auto) 900 Eos # (Auto) 100 Baso # (Auto) 0 PT 27.8 H D INR 2.4 H Sodium 137 Potassium 3.7 Chloride 93 L Carbon Dioxide 37 H BUN 20 Creatinine 0.71 Estimated GFR > 60.0 BUN/Creatinine Ratio 28.2 H Glucose 105 Calcium 9.4 Urine Color Urine Appearance Urine pH Ur Specific [place] Urine Protein Urine Glucose (UA) Urine Ketones Urine Occult Blood Urine Nitrate Urine Bilirubin Urine Urobilinogen Ur Leukocyte Esterase Urine RBC Urine WBC Ur Squamous Epith Cells Urine Bacteria Ur Culture Indicated? 01/04/20 18:00 WBC RBC Hgb Hct MCV MCH MCHC RDW Plt Count Neut % (Auto) Lymph % (Auto) [place] % (Auto) Eos % (Auto) Baso % (Auto) Neut # (Auto) Lymph # (Auto) [place] # (Auto) Eos # (Auto) Baso # (Auto) PT INR Sodium Potassium Chloride Carbon Dioxide BUN Creatinine Estimated GFR BUN/Creatinine Ratio Glucose Calcium Urine Color Yellow Urine Appearance Clear Urine pH 7.0 Ur Specific [place] 1.010 Urine Protein Trace H Urine Glucose (UA) Negative Urine Ketones 1+ H Urine Occult Blood Negative Urine Nitrate Negative Urine Bilirubin Negative Urine Urobilinogen 0.2 Ur Leukocyte Esterase Negative Urine RBC None seen Urine WBC 0-1/hpf Ur Squamous Epith Cells 0-1 /hpf Urine Bacteria None seen Ur Culture Indicated? Cult not indicated Assessment & Plan Assessment & Plan narrative: Tramaine Medeiros will be placed into observation for intractable knee pain and further evaluation of the inguinal hernia Intractable right knee pain likely secondary to a joint effusion, acute, present on admission -Dr. Valencia will see the patient in the morning -She indicated she will likely do a needle aspiration of the knee and asked that I hold the patient's warfarin -pain management with scheduled extra-strength Tylenol Q 6 hours, tramadol 50 mg q.6 hours as needed and hydrocodone/APAP 5/325 q.6 hours as needed for pain -patient should ice his knee Inguinal hernia, unknown if acute, present on admission -unable to appreciate gap, continue monitoring, the patient should likely follow up with General surgery outpatient if he wants to have this corrected Atrial fibrillation, active, chronic and with a therapeutic INR at 2.4 -withholding warfarin for now until his knee is either drained or has surgical intervention -continue home dose of carvedilol 12 mg p.o. daily BPH, active, chronic Continue home dose of finasteride 5 mg p.o. daily an alfuzosin 10 mg p.o. in the evening Crohn's disease, active, chronic Continue home dose of Pentasa 1000 mg p.o. b.i.d. Hyperlipidemia, chronic an active -continue home dose of simvastatin 20 mg p.o. b.i.d. Consults: Dr. Valencia, orthopedic surgery consult and involvement is appreciated. Patient is observation status as his stay is not likely to exceed 2 midnights. FEN: IV saline lock, low sodium diet, BMP in the am. VTE prophylaxis: Bilateral SCDs if he is able to tolerate, he is therpeutic on his warfarin Dispo: Likely discharge to home Code Status: Full code as discussed with patient COVID-19 COVID-19 status: Not tested Quality VTE Deep Vein Thrombosis/Pulmonary Embolism Present on Admission: No
[2020-01-05] MEDS: TRAMADOL 50 MG TABLET PO ×2 (03:16→09:08)
--- NOTE | 2020-01-05 04:50 | PC.NURSE ---
Pt is very pleasant man, AxOx4, tolerating room air. Complaints of moderate knee pain that is relieved with Toradol and vicodin. Icing knee throughout the night. States his groin bothers him as well. Tele: Abbi, NAVEEN Pt has not been OOB yet
[2020-01-05 05:00] VITALS: BP 137/77; PULSE 78; RESP 18; TEMP 36.6; O2SAT 97
[2020-01-05 05:53] LABS: Add Manual Diff / Slide Review NO; Basophils Absolute Auto 0 /uL (0-100); Basophils Percent Auto 0.5 % (0-2); Eosinophils Absolute Auto 100 /uL (0-450); Eosinophils Percent Auto 2.1 % (2-4); Hematocrit 28.6 % (41-53); Hemoglobin 9.6 g/dL (13.5-17.5); Lymphocytes Absolute Auto 800 /uL (1100-4500); Lymphocytes Percent Auto 12.7 % (25-40); Mean Corpuscular HGB Conc 33.4 % (30-36); Mean Corpuscular Hemoglobin 28.3 PG (26-34); Mean Corpuscular Volume 84.6 fL (80-100); Monocytes Absolute Auto 1200 /uL (0-900); Monocytes Percent Auto 18.8 % (3-14); Neutrophils Absolute Auto 4300 /uL (1500-7000); Neutrophils Percent Auto 65.9 % (50-75); Platelet Count 153 X10^3/uL (150-400); Red Blood Cell Count 3.38 X10^6/uL (4.5-5.9); Red Cell Distribution Width 15.5 % (11.6-14.8); White Blood Cell Count 6.6 X10^3/uL (4.5-11.0)
[2020-01-05 05:56] LABS: Prothrombin Time 22.9 SECONDS (10.1-12.7)
[2020-01-05 06:02] LABS: Blood Urea Nitrogen 18 mg/dL (9-20); Calcium 9.3 mg/dL (8.4-10.2); Carbon Dioxide 38 mmol/L (22-32); Chloride 95 mmol/L (98-107); Estimated Glomerular Filt Rate > 60.0 mL/min (>60); Glucose 96 mg/dL (80-110); HEMOLYSIS < 15 (0-50); Magnesium 2.4 mg/dL (1.6-2.3); Potassium 3.6 mmol/L (3.4-5.1); Sodium 135 mmol/L (137-145)
[2020-01-05] MEDS: ACETAMINOPHEN 325 MG TABLET 650 MG PO ×2 (06:03→13:04)
[2020-01-05 07:00] VITALS: BP 139/79; PULSE 75; RESP 18; TEMP 36.7; O2SAT 94
[2020-01-05 07:50] VITALS: O2SAT 96
[2020-01-05] MEDS: LIDOCAINE 1% 20 ML INJ (09:09)
[2020-01-05] MEDS: FOLIC ACID 1 MG TABLET PO (09:10)
[2020-01-05] MEDS: ASPIRIN EC 81 MG TABLET PO (09:10)
[2020-01-05] MEDS: carvediloL 25 MG TABLET 12.5 MG PO (09:10)
[2020-01-05] MEDS: DOCUSATE 100 MG CAPSULE PO (09:10)
[2020-01-05] MEDS: SIMVASTATIN 40 MG TABLET 20 MG PO (09:11)
[2020-01-05] MEDS: LORATADINE 10 MG TABLET PO (09:12)
[2020-01-05] MEDS: PANTOPRAZOLE 20 MG TABLET PO (09:12)
--- NOTE | 2020-01-05 09:18 | P.HP_ITS ---
History of Present Illness History of Present Illness Date Patient Seen: 01/05/20 Time Patient Seen: 09:18 Date of Onset of Symptoms: 01/01/20 Chief complaint: Bilateral knee pain and groin pain Narrative: Tramaine is an 79-year-old gentleman on chronic anticoagulation for cardiac issues. He has a history of bilateral atraumatic knee hemarthrosis. These have been drained on multiple occasions in the past. No history of infection. He recently presented to the ER over the weekend with a right hemarthrosis and an INR elevated to 4. Pain was relatively controlled and due to the elevated INR patient was treated conservatively. He came back to the ER on 01/04/2020 with a groin pain and continued right knee pain. His INR was 2.4 this time. He was admitted to the hospital for his groin pain and knee pain. Warfarin was held INR was 2 on 01/05/2020. About a month ago he was in the ER for a left knee hemarthrosis. He does have an at home being appointment he states to see Dr. Andersen regarding his knees. He also has follow-up scheduled with his primary care doctor regarding his INR and Coumadin dosing. He denies any specific trauma. Denies fevers chills nausea vomiting numbness or tingling. Patient History Medical History Asthma (Chronic) Atrial fibrillation (Chronic) CHF (congestive heart failure) (Chronic) Osteoarthritis (Chronic) Pulmonary hypertension (Chronic) Surgical History H/O mitral valve replacement (Acute) Family & Social History Family History Mother Congestive heart failure Father Coronary artery disease Social History: household members spouse Prior Living Arrangements House Safety & Behavioral: Feels Safe in Current Yes Environment Been Physically Hurt or No Threatened By a Person Suicidal Ideation Description None Tobacco & Substance use: Smoking Status Never smoker alcohol intake frequency holiday/special occasion Substance Use Type does not use Meds Home Medications and Allergies Home Medications Medication Instructions Recorded Confirmed Type albuterol sulfate [Proventil HFA] 1 puff INH PRN PRN #0 03/22/17 01/04/20 History alfuzosin 10 mg PO QPM #0 03/22/17 01/04/20 History Pentasa 1,000 mg PO BID #0 03/24/17 01/04/20 History calcium carbonate-vitamin D3 3 tab PO DAILY #0 03/31/17 01/04/20 History ascorbic acid (vitamin C) 500 mg PO DAILY 05/18/18 01/04/20 History aspirin 81 mg PO DAILY 05/18/18 01/04/20 History carvedilol 12.5 mg PO DAILY 05/18/18 01/04/20 History cholecalciferol (vitamin D3) 2,000 unit PO DIRECTED 05/18/18 01/04/20 History [Vitamin D3] cyclobenzaprine 10 mg PO PRN PRN 05/18/18 01/04/20 History eplerenone 25 mg PO DAILY 05/18/18 01/04/20 History ferrous sulfate 325 mg PO BID 05/18/18 01/04/20 History finasteride 5 mg PO DAILY 05/18/18 01/04/20 History folic acid 1 mg PO DAILY 05/18/18 01/04/20 History furosemide 40 mg PO QPM 05/18/18 01/04/20 History furosemide 80 mg PO DAILY 05/18/18 01/04/20 History loratadine 10 mg PO DAILY 05/18/18 01/04/20 History nitroglycerin [Nitrostat] 0.4 mg SUBLINGUAL Q5-15M PRN 05/18/18 01/04/20 History omeprazole 20 mg PO DAILY 05/18/18 01/04/20 History potassium chloride 20 meq PO DAILY 05/18/18 01/04/20 History simvastatin 20 mg PO BID 05/18/18 01/04/20 History sodium fluoride-pot nitrate 1 applic DENTAL QPM 05/18/18 01/04/20 History tramadol 50 mg PO Q6H 05/18/18 01/04/20 History warfarin 7.5 mg PO TUTH 05/18/18 01/04/20 History warfarin [Coumadin] 5 mg PO SUMOWEFRSA 05/18/18 01/04/20 History oxycodone-acetaminophen [Percocet] 2 tab PO Q6H PRN #10 tab 05/27/18 01/04/20 Rx warfarin [Coumadin] 06/29/18 History cefdinir 300 mg PO BID #10 cap 08/14/19 01/04/20 Rx Allergies Allergy/AdvReac Type Severity Reaction Status Date / Time ibuprofen Allergy Mild NOT GOOD Verified 01/04/20 13:59 FOR STOMACH BLEEDING iodine Allergy Mild UNKNOWN Verified 01/04/20 13:59 Sulfa (Sulfonamide Allergy Mild BURNED A Verified 01/04/20 13:59 Antibiotics) HOLE THRU INTESTINES thallium-201 Allergy Mild BREAKS OUT Verified 01/04/20 13:59 IN BLOTCHES AND ITCHING terazosin Allergy Hypotension Verified 01/04/20 19:20 spironolactone AdvReac Verified 01/04/20 19:20 Review of Systems Review of Systems Narrative: Recurrent hemarthrosis of his knees intermittently. ROS: Yes All systems reviewed with the patient and are negative except as otherwise documented Exam Vital Signs (past 8 hours): - 01/05/20 05:00 01/05/20 07:00 Temperature 97.9 F 98.0 F Pulse Rate 78 75 Respiratory Rate 18 18 Blood Pressure 137/77 139/79 Pulse Oximetry 97 94 Oxygen Delivery Method Room Air Oxygen Flow Rate 0 Narrative Exam Narrative: Alert oriented male sitting in bed. Retired from the [employer]. Very pleasant and conversational. No acute distress HEENT exam normocephalic atraumatic Respiratory exam clear lungs to auscultation bilaterally CV irreg Musculoskeletal examination: Flex and extends the right and left knees. Right knee limited range of motion secondary to pain. No erythema no redness no signs or symptoms of infection. There is a large effusion. Calf is soft. Thigh is soft. Demonstrates 5/5 dorsiflexion plantar flexion. Sensation grossly intact to light touch. Objective Imaging r knee xr: My impression: Three views right knee AP lateral sunrise demonstrate large effusion. There are degenerative changes joint space narrowing small osteophytes. No evidence of acute fracture dislocation. Radiologist's impression: IMPRESSION: Mild degenerative osteophytes. Continued large knee joint effusion. No evidence acute bony abnormality of the right knee. If clinical suspicion and/or symptoms persist, further assessment with repeat plain films, or advanced imaging (e.g., CT, MRI, or bone scan) may be helpful for further assessment. Dictated by: Tyler Meraz M.D. on 01/01/2020 at 16:59 Approved by: Tyler Meraz M.D. on 01/01/2020 at 17:01 Labs Result Diagrams: 01/05/20 05:31 01/05/20 05:31 Labs: Laboratory Results - last 24 hr 01/04/20 01/04/20 01/04/20 14:25 14:25 14:25 WBC 6.5 RBC 3.55 L Hgb 9.8 L Hct 30.2 L MCV 85.2 MCH 27.8 MCHC 32.6 RDW 15.8 H Plt Count 154 Neut % (Auto) 73.2 Lymph % (Auto) 10.6 L [place] % (Auto) 14.5 H Eos % (Auto) 1.3 L Baso % (Auto) 0.4 Neut # (Auto) 4700 Lymph # (Auto) 700 L [place] # (Auto) 900 Eos # (Auto) 100 Baso # (Auto) 0 PT 27.8 H D INR 2.4 H Sodium 137 Potassium 3.7 Chloride 93 L Carbon Dioxide 37 H BUN 20 Creatinine 0.71 Estimated GFR > 60.0 BUN/Creatinine Ratio 28.2 H Glucose 105 Calcium 9.4 Magnesium Urine Color Urine Appearance Urine pH Ur Specific [place] Urine Protein Urine Glucose (UA) Urine Ketones Urine Occult Blood Urine Nitrate Urine Bilirubin Urine Urobilinogen Ur Leukocyte Esterase Urine RBC Urine WBC Ur Squamous Epith Cells Urine Bacteria Ur Culture Indicated? 01/04/20 01/05/20 01/05/20 18:00 05:31 05:31 WBC 6.6 RBC 3.38 L Hgb 9.6 L Hct 28.6 L MCV 84.6 MCH 28.3 MCHC 33.4 RDW 15.5 H Plt Count 153 Neut % (Auto) 65.9 Lymph % (Auto) 12.7 L [place] % (Auto) 18.8 H Eos % (Auto) 2.1 Baso % (Auto) 0.5 Neut # (Auto) 4300 Lymph # (Auto) 800 L [place] # (Auto) 1200 H Eos # (Auto) 100 Baso # (Auto) 0 PT 22.9 H INR 2.0 H Sodium Potassium Chloride Carbon Dioxide BUN Creatinine Estimated GFR BUN/Creatinine Ratio Glucose Calcium Magnesium Urine Color Yellow Urine Appearance Clear Urine pH 7.0 Ur Specific [place] 1.010 Urine Protein Trace H Urine Glucose (UA) Negative Urine Ketones 1+ H Urine Occult Blood Negative Urine Nitrate Negative Urine Bilirubin Negative Urine Urobilinogen 0.2 Ur Leukocyte Esterase Negative Urine RBC None seen Urine WBC 0-1/hpf Ur Squamous Epith Cells 0-1 /hpf Urine Bacteria None seen Ur Culture Indicated? Cult not indicated 01/05/20 05:31 WBC RBC Hgb Hct MCV MCH MCHC RDW Plt Count Neut % (Auto) Lymph % (Auto) [place] % (Auto) Eos % (Auto) Baso % (Auto) Neut # (Auto) Lymph # (Auto) [place] # (Auto) Eos # (Auto) Baso # (Auto) PT INR Sodium 135 L Potassium 3.6 Chloride 95 L Carbon Dioxide 38 H BUN 18 Creatinine 0.62 L Estimated GFR > 60.0 BUN/Creatinine Ratio 29.0 H Glucose 96 Calcium 9.3 Magnesium 2.4 H Urine Color Urine Appearance Urine pH Ur Specific [place] Urine Protein Urine Glucose (UA) Urine Ketones Urine Occult Blood Urine Nitrate Urine Bilirubin Urine Urobilinogen Ur Leukocyte Esterase Urine RBC Urine WBC Ur Squamous Epith Cells Urine Bacteria Ur Culture Indicated? Assessment & Plan Assessment and plan (1) Effusion of right knee: Status: Acute (2) Acute knee pain: Qualifiers: Laterality: right Qualified Code(s): M25.561 - Pain in right knee Status: Acute (3) Supratherapeutic INR: Status: Acute Assessment & Plan narrative: Patient is 79-year-old male with a history of a supratherapeutic INR and the presence of a large right knee effusion. He has responded well to aspirations of this in the past. His INR has been corrected down to 2 today and is reasonable for aspiration. The risks benefits and alternatives were discussed with the patient in detail and he has elected to proceed. Approximately 70 cc of dark hematoma blood was drained from the knee. The patient tolerated this well. There was no fat or purulence no signs of lipohemarthrosis or infection. Pressure was held and a Band-Aid was placed. Discharge when medically stable. Follow-up as scheduled outpatient. Discussed the importance of controlling his INR to avoid becoming supratherapeutic and having recurrent bleeds. Patient understands and agrees with the plan. Time Spent With Patient Time with patient: 15-24 minutes Quality VTE Deep Vein Thrombosis/Pulmonary Embolism Present on Admission: No
--- NOTE | 2020-01-05 09:26 | PM.PROC.1 ---
Procedures Date/Time Date of procedure: 01/05/20 Time of procedure: 09:26 Joint Aspiration/Injection Time out performed: Yes Side of body: right Joint aspirated: knee Ultrasound guidance: No Skin prep: Chlorhexidine Amount of anesthesia used (ml): 6 Needle size used: 18G Fluid obtained: bloody Total fluid obtained (ml): 70 Patient tolerated procedure: well Complications: none Additional comments: Approximately 70 cc dark hematoma blood evacuated from the knee. Patient tolerated procedure well.
[2020-01-05] MEDS: MESALAMINE 250 MG CAPSULE.ER 1000 MG PO (10:20)
[2020-01-05] MEDS: FINASTERIDE 5 MG TABLET PO (10:20)
--- NOTE | 2020-01-05 10:30 | P.DS_ITS ---
History of Present Illness History of Present Illness Chief complaint: Bilateral knee pain and groin pain Narrative: Tramaine is an 79-year-old gentleman on chronic anticoagulation for cardiac issues. He has a history of bilateral atraumatic knee hemarthrosis. These have been drained on multiple occasions in the past. No history of infection. He recently presented to the ER over the weekend with a right hemar throsis and an INR elevated to 4. Pain was relatively controlled and due to the elevated INR patient was treated conservatively. He came back to the ER on 01/04/2020 with a groin pain and continued right knee pain. His INR was 2.4 this time. He was admitted to the hospital for his groin pain and knee pain. Warfarin was held INR was 2 on 01/05/2020. About a month ago he was in the ER for a left knee hemarthrosis. He does have an at home being appointment he states to see Dr. Andersen regarding his knees. He also has follow-up scheduled with his primary care doctor regarding his INR and Coumadin dosing. He denies any specific trauma. Denies fevers chills nausea vomiting numbness or tingling. Discharge Providers Provider Date of admission: 01/04/20 18:19 Discharge Date: 01/05/20 Primary care physician: Barrera Roth MD Consults: 01/04/20 16:46 Consult to Physical Therapy Evaluate & Treat Comment: right knee effusion and pain Physician Instructions: Evaluate and Treat 01/04/20 21:47 Consult to Physical Therapy Evaluate & Treat Comment: right knee strain Physician Instructions: Evaluate and Treat Consult to Physician Routine Comment: Consulting Provider: Lindy Johnson Reason for consultation: right knee joint effusion Has provider been notified: Yes Discharge provider: Andrzej Harris MD Summary Hospital Course Discharge Diagnosis: 1. Recurrent right knee hemarthrosis 2. Chronic atrial fibrillation 3. Chronic anticoagulation with supratherapeutic INR 4. Degenerative joint disease, knees 5. Chronic iron deficiency anemia secondary to Crohn's 6. Possible right inguinal hernia Hospital Course: Patient was admitted due to increasing pain and difficulty with mobility due to right knee hematoma. He was admitted to observation service. Ortho saw him and performed arthrocentesis with removal of 70 cc sanguinous fluid from the right knee. This is been a recurrent problem for him due to arthritis in both knees and being on oral anticoagulation. He recently had elevated INR of 4.0 and warfarin held with INR 2.4 on admission labs. He sees Dr. Andersen for Ortho. Physical therapy assessed patient prior to discharge and he appears to be walking better and also in less pain since decrease in knee hematoma. Status at Discharge Cognitive/behavioral status at discharge: oriented Functional status at discharge: uses cane/walker Overall status at discharge: patient is back to baseline Time Spent with Patient Time spent: Less than 30 minutes Exam Vital Signs (past 8 hours): - 01/05/20 05:00 01/05/20 07:00 Temperature 97.9 F 98.0 F Pulse Rate 78 75 Respiratory Rate 18 18 Blood Pressure 137/77 139/79 Pulse Oximetry 97 94 Oxygen Delivery Method Room Air Oxygen Flow Rate 0 Objective Labs Result Diagrams: 01/05/20 05:31 01/05/20 05:31 Labs: Laboratory Results - last 24 hr 01/04/20 01/04/20 01/04/20 14:25 14:25 14:25 WBC 6.5 RBC 3.55 L Hgb 9.8 L Hct 30.2 L MCV 85.2 MCH 27.8 MCHC 32.6 RDW 15.8 H Plt Count 154 Neut % (Auto) 73.2 Lymph % (Auto) 10.6 L [place] % (Auto) 14.5 H Eos % (Auto) 1.3 L Baso % (Auto) 0.4 Neut # (Auto) 4700 Lymph # (Auto) 700 L [place] # (Auto) 900 Eos # (Auto) 100 Baso # (Auto) 0 PT 27.8 H D INR 2.4 H Sodium 137 Potassium 3.7 Chloride 93 L Carbon Dioxide 37 H BUN 20 Creatinine 0.71 Estimated GFR > 60.0 BUN/Creatinine Ratio 28.2 H Glucose 105 Calcium 9.4 Magnesium Urine Color Urine Appearance Urine pH Ur Specific [place] Urine Protein Urine Glucose (UA) Urine Ketones Urine Occult Blood Urine Nitrate Urine Bilirubin Urine Urobilinogen Ur Leukocyte Esterase Urine RBC Urine WBC Ur Squamous Epith Cells Urine Bacteria Ur Culture Indicated? 01/04/20 01/05/20 01/05/20 18:00 05:31 05:31 WBC 6.6 RBC 3.38 L Hgb 9.6 L Hct 28.6 L MCV 84.6 MCH 28.3 MCHC 33.4 RDW 15.5 H Plt Count 153 Neut % (Auto) 65.9 Lymph % (Auto) 12.7 L [place] % (Auto) 18.8 H Eos % (Auto) 2.1 Baso % (Auto) 0.5 Neut # (Auto) 4300 Lymph # (Auto) 800 L [place] # (Auto) 1200 H Eos # (Auto) 100 Baso # (Auto) 0 PT 22.9 H INR 2.0 H Sodium Potassium Chloride Carbon Dioxide BUN Creatinine Estimated GFR BUN/Creatinine Ratio Glucose Calcium Magnesium Urine Color Yellow Urine Appearance Clear Urine pH 7.0 Ur Specific [place] 1.010 Urine Protein Trace H Urine Glucose (UA) Negative Urine Ketones 1+ H Urine Occult Blood Negative Urine Nitrate Negative Urine Bilirubin Negative Urine Urobilinogen 0.2 Ur Leukocyte Esterase Negative Urine RBC None seen Urine WBC 0-1/hpf Ur Squamous Epith Cells 0-1 /hpf Urine Bacteria None seen Ur Culture Indicated? Cult not indicated 01/05/20 05:31 WBC RBC Hgb Hct MCV MCH MCHC RDW Plt Count Neut % (Auto) Lymph % (Auto) [place] % (Auto) Eos % (Auto) Baso % (Auto) Neut # (Auto) Lymph # (Auto) [place] # (Auto) Eos # (Auto) Baso # (Auto) PT INR Sodium 135 L Potassium 3.6 Chloride 95 L Carbon Dioxide 38 H BUN 18 Creatinine 0.62 L Estimated GFR > 60.0 BUN/Creatinine Ratio 29.0 H Glucose 96 Calcium 9.3 Magnesium 2.4 H Urine Color Urine Appearance Urine pH Ur Specific [place] Urine Protein Urine Glucose (UA) Urine Ketones Urine Occult Blood Urine Nitrate Urine Bilirubin Urine Urobilinogen Ur Leukocyte Esterase Urine RBC Urine WBC Ur Squamous Epith Cells Urine Bacteria Ur Culture Indicated? Discharge Plan Discharge Plan Patient Disposition: Home Discharge orders & Medications Prescriptions: Continued albuterol sulfate [Proventil HFA] 90 MCG/PUFF HFA aerosol inhaler 1 puff INH PRN PRN (Reason: Shortness Of Breath) Qty: 0 RF: 0 alfuzosin 10 MG tablet extended release 24 hr 10 mg PO QPM Qty: 0 RF: 0 Pentasa 500 MG capsule, extended release 1,000 mg PO BID Qty: 0 RF: 0 calcium carbonate-vitamin D3 500-100 mg-unit Tablet,Chewable 3 tab PO DAILY Qty: 0 RF: 0 furosemide 40 MG tablet 80 mg PO DAILY RF: 0 cyclobenzaprine 10 mg Tablet 10 mg PO PRN PRN (Reason: Spasms) RF: 0 furosemide 40 mg Tablet 40 mg PO QPM RF: 0 carvedilol 25 mg Tablet 12.5 mg PO DAILY RF: 0 tramadol 50 mg Tablet 50 mg PO Q6H RF: 0 simvastatin 40 mg Tablet 20 mg PO BID RF: 0 ferrous sulfate 325 mg (65 mg iron) Tablet 325 mg PO BID RF: 0 ascorbic acid (vitamin C) 500 mg Tablet,Chewable 500 mg PO DAILY RF: 0 nitroglycerin [Nitrostat] 0.4 mg Tablet, Sublingual 0.4 mg SUBLINGUAL Q5-15M PRN (Reason: Chest Pain) RF: 0 folic acid 1 mg Tablet 1 mg PO DAILY RF: 0 finasteride 5 mg Tablet 5 mg PO DAILY RF: 0 loratadine 10 mg Tablet 10 mg PO DAILY RF: 0 sodium fluoride-pot nitrate 1.1-5 % Paste 1 applic Dental QPM RF: 0 omeprazole 20 mg Tablet,Delayed Release (Dr/Ec) 20 mg PO DAILY RF: 0 cholecalciferol (vitamin D3) [Vitamin D3] 2,000 unit Capsule 2,000 unit PO DIRECTED RF: 0 potassium chloride 20 mEq Tablet Extended Release 20 meq PO DAILY RF: 0 aspirin 81 MG tablet,delayed release (DR/EC) 81 mg PO DAILY RF: 0 eplerenone 25 mg Tablet 25 mg PO DAILY RF: 0 oxycodone-acetaminophen [Percocet] 5-325 mg tablet 2 tab PO Q6H PRN (Reason: acute knee pain/effusion) Qty: 10 RF: 0 warfarin 5 mg tablet RF: 0 Changed warfarin 5 mg tablet See Rx Instructions .ROUTE .COMPLEX Qty: 0 RF: 0 warfarin 5 mg tablet See Rx Instructions .ROUTE .COMPLEX Qty: 0 RF: 0 Discontinued cefdinir 300 mg capsule 300 mg PO BID Qty: 10 RF: 0 Follow up/Referrals: Barrera Roth MD [Primary Care Provider] - Diet/Activity/Treatments Diet: Diet as Tolerated Visit Report/Discharge Packet Instructions: DI for Groin Hernia, DI for Arthrocentesis, How to Prevent Falls Visit Report Forms: Patient Portal/API, Stroke Signs & Symptoms Discharge Data Primary Care Provider: Barrera Roth V Attending Provider: Josy Dumont Admit Date/Time: 01/04/20 18:19 Quality VTE Deep Vein Thrombosis/Pulmonary Embolism Present on Admission: No
[2020-01-05 11:00] VITALS: BP 111/70; PULSE 69; RESP 18; TEMP 36.6; O2SAT 96
--- NOTE | 2020-01-05 11:16 | CM.DANOTE ---
Patient is an 79 year old male who was admitted on 01/04/20 OBS for Knee pain and Hernia pain. Pt has [employer] for insurance and his PCP is Dr. Barrera Roth. EMR was reviewed. Per , pt had consult from Dr. Johnson and recommendation for outpt follow up for knee and hernia repair. PT working with pt currently and pt observed ambulating the olguin with walker and managing much better than earlier. SW met bedside with pt briefly during PT eval and recommendation and pt confirms that he lives at home in [place] with spouse who has some caregiving needs and local supportive Dtr Chasidy is DPOA. Pt is typically independent with ADL's and drives at baseline and preference is home when stable today via family POV. Pt does not anticipate any further needs. Per MD, pt stable for discharge home later today and no identified barriers to discharge. Plan: SW to follow for plan of patient discharge home later today with outpt follow up with general surgery for hernia repair and to follow for knee pain. STEVE Martinez Discharge Planning/Care Management CM Discharge Assessment Start: 01/05/20 11:14 Freq: Status: Active Protocol: Document 01/05/20 11:14 BF (Rec: 01/05/20 11:16 BF [id number]) Discharge Planning Assessment Assigned Inspector Mechanical STEVE De Leon/Assigned Designee Name Dtclaire Chasidy Contact Information [phone] Advance Directives? Yes Advance Directives on File No History Provided By Patient,Medical Record Has Patient been admitted in last 30 No days? Prior Living Arrangements House Household Members spouse Type of transporation used prior to Drives own vehicle admit Independent with ADL's Yes Is patient alert and oriented? Yes Caregiver for Another Yes: primary CG for spouse Patient/Family Preference OP PT Therapy Barriers to Discharge No Discharge Plan Home Community Services Physical Therapy Transportation Arrangement Family available to provide transport at d/c Referrals Initiated None needed Review Status In Process Please Provide Date Initial DC 01/05/20 Assessment Was Performed Next Review Type Continued Stay Review
--- NOTE | 2020-01-05 11:43 | PT.IIE ---
Current Diagnoses Effusion, right knee (01/04/20) Pain in right knee (01/04/20) Abnormal coagulation profile (01/04/20) Surgical History (Last Reviewed 01/05/20 @ 09:20 by Lindy Johnson MD) H/O mitral valve replacement (Acute) Medical History (Last Reviewed 01/05/20 @ 09:20 by Lindy Johnson MD) Asthma (Chronic) Atrial fibrillation (Chronic) CHF (congestive heart failure) (Chronic) Osteoarthritis (Chronic) Pulmonary hypertension (Chronic) Physical Therapy Inpatient Evaluation/Re-Eval M1 PT/OT-IP Prior Functional Status Start: 01/05/20 08:37 Freq: NEEDED Status: Active Protocol: Document 01/05/20 11:09 (Rec: 01/05/20 11:43 [email or web address]) Medical Review Prior Functional Status Medical History Reviewed Yes Diet/Fluid Consistency Regular Communication pt is a effective communicator but with [place]. Pt wears hearing aids. Mobility and Gait Pt uses B SPC for 80 % of the time d/t bilateral knee pain. He has been using FWW more often recently d/t increased pain. He stated he was able to walk around the house without much need for rest. However, d/t pt has very limited B knee ROM, pt always sit and sleep in his reclining chair which is also a sit to stand garnett mechanic. Otherwise, pt will push off via armrests with his knees slightly bent only (limited knee flexion) then walk his arms toward the edge then stand up by leaning his trunk forward. Vice versa for stand to sit. Pt does not have any falls for the past couple years. 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 Pt assisted his in dressing, cleaning up after toileting, vacuuming, laundry and grocery with SPCs/ FWW. Pt's dtr/ son in law also assisted if needed. He is able to drive but her dtr has been doing that for him for MD appointments. Social History Household Members spouse Living Arrangements House Number of Floors (Floors) One Floor Number of Stairs To Enter/Railing? 1 [place] from front entrance built in ramp from backdoor. Home Environment High Toilet,Walk in Shower Home Equipment Four Wheel Walker,Straight Cane,Crutches,Manual Wheelchair,Power Wheelchair/ Scooter,Hand Held Shower, Stone Carriage Operator,Grab Bars Near Toilet Employment Status Retired Additional Social History Comment Tramaine is an 79-year-old who lives with his in [facility] and his dtr and son in law live next door within the same property. He is a gentleman on chronic anticoagulation for cardiac issues. He has a history of bilateral atraumatic knee hemarthrosis. These have been drained on multiple occasions in the past. M2 PT-IP Current Condition Start: 01/05/20 08:37 Freq: NEEDED Status: Active Protocol: Document 01/05/20 11:09 (Rec: 01/05/20 11:43 [email or web address]) Physical Therapy Current Condition Current Condition Evaluation Date 01/05/20 Treatment Diagnosis R groin pain, Post aspiration at R knee d/t hematoma, difficulty in walking Onset Date 01/04/20 Weight Bearing Status Weight Bearing Status Weight Bear as Tolerated M3 PT-IP Subjective Start: 01/05/20 08:37 Freq: NEEDED Status: Active Protocol: Document 01/05/20 11:09 (Rec: 01/05/20 11:43 [email or web address]) Subjective Physical Therapy Visit Type Type Initial Evaluation Visit Start Time 09:30 Visit Stop Time 10:10 Total Visit Minutes 40 Number of COMMISSARY ASSISTANT Visits 0 Physical Therapy Visit Comments Patient Comments I feel better with my R knee now. Patient Goals To return home with family Therapy Pain Assessment Pain When Pain Assessed During Mobility Pain Present Pain Present Pain Reported Location Right Groin Intensity 2 Scale Used Nunez-Ferro (Faces) Description Aching Pain Management Techniques Modification of Treatment,Re- positioning,Timing of Activity with Medications bilateral knee Intensity 3 Scale Used Nunez-Ferro (Faces) Description Aching Pain Management Techniques Modification of Treatment,Re- positioning,Timing of Activity with Medications M4 PT-IP Mobility and Gait Start: 01/05/20 08:37 Freq: NEEDED Status: Active Protocol: Document 01/05/20 11:09 HH (Rec: 01/05/20 11:43 [email or web address]) PT-Bed Mobility Assessment Supine to Sit Supine to Sit Contact Guard Assistance,Head of Bed Elevated,Bedrails Scooting Scooting to Edge of Bed Contact Guard Assistance PT-Transfer Assessment Sit to and From Stand Sit to and from Stand Contact Guard Assistance,Use of Upper Extremities Equipment Transfer Assistive Device Bed Rail,Gait Belt,Front Wheeled Walker Orthotic/Prosthetic Devices or Brace: No Transfers Transfer Destination Bed,Chair Transfer Technique FWW Transfer Ability Level of Assist Standby Assistance,Contact Guard Assistance,Use of Upper Extremities Comments Mobility Comments Pt was in elevated HOB upon PT arrival. Pt denied discomfort and agreed to mobilize with PT. Pt stated he does not sleep in bed but in his reclining chair with sit to stand garnett mechanic d/t limited knee ROM. Set pt's bed into seated position. Pt then pivoted him self to R EOB and used R bedrail to pull and scoot forward. Pt then needed PT to stabilize his walker and he pulled to stand with his walker by leaning forward excessively d/t limited knee flexion. After he stood up, pt started ambulating towards hallway with CGA<> SBA. Pt overall amb with an antalgic gait but appear to be steady and safe. He stated he is walking better than his past couple months. Pt amb a total of 160 ft with FWW and returned to bedside chair. Pt descend himself by WB through his arms primarily with SBA. Pt practiced STS x3 times afterwards with this PT who was safe but poor mechanics d/ t limited knee flexion. Pt reports he is feeling good. Left pt with call ligth placed within reach. Gait Assessment Gait Gait Assistance Required: Standby Assistance Distance (Feet) 160 Able to Maintain Weight Bearing Status Yes During Gait Assistive Devices Assistive Device Gait Belt,Front Wheeled Walker Orthotic/Prosthetic Devices or Brace: No Gait Deviations General Gait Pattern Antalgic,Decreased Stride Length,Decreased Feet Clearance,Flexed Trunk,Lateral Trunk Lean Factors Limiting Gait Function Factors Limiting Gait Function Decreased Activity Tolerance, Decreased Strength,Limited Range of Motion,Pain,Poor Balance Comments Gait Comments see mobility comments. Pt amb with an antalgic gait and excessive knee flexion on R side. Dec stance time noted on RLE. Stair Climbing Assessment Comments Stair Climbing Comments pt has a built in ramp for backdoor entrance PT-Balance Assessment Sitting Balance and Reactions Static Sitting Balance Ability Normal Dynamic Sitting Balance Ability Normal Standing Balance and Reactions Static Standing Balance Ability Good Dynamic Standing Balance Ability Fair Device Used FWW M5 PT-IP Objective Assessments Start: 01/05/20 08:37 Freq: NEEDED Status: Active Protocol: Document 01/05/20 11:09 HH (Rec: 01/05/20 11:43 [email or web address]) Orientation Orientation/Cognition Level of Alertness Alert Orientation Name,Age,Birthday,Month,Date, Year,Day of Week,Place, Situation Language Function Ability No Deficits Noted Safety Awareness Understands Safety Issues Memory Description No Deficits Noted Gross Range of Motion Upper Extremity ROM Assessment Within Functional Limits Lower Extremity ROM Assessment Bilaterally Impaired Impairments R knee AROM = ~15- 65 L knee AROM= ~10- 75 Strength Upper Extremity Strength Assessment Within Functional Limits Lower Extremity Strength Assessment Bilaterally Impaired Hip 4/5 Knee 4-/5 Ankle 5/5 Coordination Assessment Gross Coordination Gross Coordination WNL Sensation Assessment Sensation Gross Sensation WNL Muscle Tone Muscle Tone WNL Yes M6 PT-IP Treatment Start: 01/05/20 08:37 Freq: NEEDED Status: Active Protocol: Document 01/05/20 11:09 (Rec: 01/05/20 11:43 [email or web address]) Physical Therapy Treatment Exercises Exercises Ankle Pumps,Quad Sets,Heel Slides Education Education Provided Precautions,Weight Bearing Status,Post-Op Packet,Safety M7 PT-IP Assessment and Plan Start: 01/05/20 08:37 Freq: NEEDED Status: Active Protocol: Document 01/05/20 11:09 (Rec: 01/05/20 11:43 [email or web address]) PT Summary Assessment and Plan Potential Rehabilitation Potential Good Status of Condition at Evaluation Stable Summary Impairments Pain,ROM,Strength,Balance,Bed Mobility,Transfers,Gait, Activity Tolerance Assessment Summary This is a mod complexity evaluation for this 79yo male admitted to d/t R groin pain and hematoma for his R knee with chronic B knee pain. Pt has a history of bilateral atraumatic knee hemarthrosis. Upon assessment, pt reports his groin pain and R knee pain have significantly improved especailly after aspiration. Pt was able to transfer / sit to stand with CGA with FWW with poor techqnies and mechanis d/t his very limited knee flexion. However, pt has been using his sit to stand garnett mechanic which is primary chair and place to sleep at home, along with other safety features/ AD he has currently. Pt was also able to amb 160 ft on AC unit with SBA. In my professional opinion and pt's statement, pt is at baseline regarding of his mobility level. Recommended pt to cont use FWW for mobility and d/c home with home health and assistance from Dtr/ son in law if needed at this point. ( considering pt is a primary CG for his too) Notified nursing and hospitalist who expect pt to be home later today. Pt will cont to benefit from skilled therapy if he stayed overnight and practice transfer training. Goals Bed Mobility Goal Standby Assistance Transfer Goal Standby Assistance,Cane, Crutches,Front Wheeled Walker, Four Wheeled Walker Gait Goal Standby Assistance,Cane, Crutches,Front Wheel Walker, Four Wheel Walker Gait Distance 200 Other Goals with LRAD Days to Meet Goals 2 Frequency of Treatment Frequency Of Treatment Once a Day Treatment Plan Physical Therapy Treatment Plan Bed Mobility Training,Transfer Training,Gait Training, Therapeutic Exercise,Balance Retraining,Discharge Planning, Neuromuscular Re-ed Other Recommendations and Next Treatment cont transfer training from Focus high level chair/ reg chair overall mobiltiy with LRAD. KNEE AROM ex Recommendations To Nursing Amount of Assist Needed 1 Person Assist Discharge Recommendations PT Discharge Recommendations Home with Assistance,Home Health Transportation Needs at Discharge Private Vehicle
--- NOTE | 2020-01-05 12:17 | PT.IIE ---
Current Diagnoses Effusion, right knee (01/04/20) Pain in right knee (01/04/20) Abnormal coagulation profile (01/04/20) Surgical History (Last Reviewed 01/05/20 @ 09:20 by Lindy Johnson MD) H/O mitral valve replacement (Acute) Medical History (Last Reviewed 01/05/20 @ 09:20 by Lindy Johnson MD) Asthma (Chronic) Atrial fibrillation (Chronic) CHF (congestive heart failure) (Chronic) Osteoarthritis (Chronic) Pulmonary hypertension (Chronic) Physical Therapy Inpatient Evaluation/Re-Eval M1 PT/OT-IP Prior Functional Status Start: 01/05/20 08:37 Freq: NEEDED Status: Active Protocol: Document 01/05/20 11:09 (Rec: 01/05/20 11:43 [email or web address]) Medical Review Prior Functional Status Medical History Reviewed Yes Diet/Fluid Consistency Regular Communication pt is a effective communicator but with [place]. Pt wears hearing aids. Mobility and Gait Pt uses B SPC for 80 % of the time d/t bilateral knee pain. He has been using FWW more often recently d/t increased pain. He stated he was able to walk around the house without much need for rest. 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 Otherwise, pt will push off via armrests with his knees slightly bent only (limited knee flexion) then walk his arms toward the edge then stand up by leaning his trunk forward. Vice versa for stand to sit. Pt does not have any falls for the past couple years. 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 Pt assisted his in dressing, cleaning up after toileting, vacuuming, laundry and grocery with SPCs/ FWW. Pt's dtr/ son in law also assisted if needed. He is able to drive but her dtr has been doing that for him for MD appointments. Social History Household Members spouse Living Arrangements House Number of Floors (Floors) One Floor Number of Stairs To Enter/Railing? 1 [place] from front entrance built in ramp from backdoor. Home Environment High Toilet,Walk in Shower Home Equipment Four Wheel Walker,Straight Cane,Crutches,Manual Wheelchair,Power Wheelchair/ Scooter,Hand Held Shower, Eradicator,Grab Bars Near Toilet Employment Status Retired Additional Social History Comment Tramaine is an 79-year-old who lives with his in [facility] and his dtr and son in law live next door within the same property. He is a gentleman on chronic anticoagulation for cardiac issues. He has a history of bilateral atraumatic knee hemarthrosis. These have been drained on multiple occasions in the past. M2 PT-IP Current Condition Start: 01/05/20 08:37 Freq: NEEDED Status: Active Protocol: Document 01/05/20 11:09 (Rec: 01/05/20 11:43 [email or web address]) Physical Therapy Current Condition Current Condition Evaluation Date 01/05/20 Treatment Diagnosis R groin pain, Post aspiration at R knee d/t hematoma, difficulty in walking Onset Date 01/04/20 Weight Bearing Status Weight Bearing Status Weight Bear as Tolerated M3 PT-IP Subjective Start: 01/05/20 08:37 Freq: NEEDED Status: Active Protocol: Document 01/05/20 11:09 (Rec: 01/05/20 11:43 [email or web address]) Subjective Physical Therapy Visit Type Type Initial Evaluation Visit Start Time 09:30 Visit Stop Time 10:10 Total Visit Minutes 40 Number of 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 Patient Goals To return home with family Therapy Pain Assessment Pain When Pain Assessed During Mobility Pain Present Pain Present Pain Reported Location Right Groin Intensity 2 Scale Used Nunez-Ferro (Faces) Description Aching Pain Management Techniques Modification of Treatment,Re- positioning,Timing of Activity with Medications bilateral knee Intensity 3 Scale Used Nunez-Ferro (Faces) Description Aching Pain Management Techniques Modification of Treatment,Re- positioning,Timing of Activity with Medications M4 PT-IP Mobility and Gait Start: 01/05/20 08:37 Freq: NEEDED Status: Active Protocol: Document 01/05/20 11:09 HH (Rec: 01/05/20 11:43 [email or web address]) PT-Bed Mobility Assessment Supine to Sit Supine to Sit Contact Guard Assistance,Head of Bed Elevated,Bedrails Scooting Scooting to Edge of Bed Contact Guard Assistance PT-Transfer Assessment Sit to and From Stand Sit to and from Stand Contact Guard Assistance,Use of Upper Extremities Equipment Transfer Assistive Device Bed Rail,Gait Belt,Front Wheeled Walker Orthotic/Prosthetic Devices or Brace: No Transfers Transfer Destination Bed,Chair Transfer Technique FWW Transfer Ability Level of Assist Standby Assistance,Contact Guard Assistance,Use of Upper Extremities Comments Mobility Comments Pt was in elevated HOB upon PT arrival. Pt denied discomfort and agreed to mobilize with PT. 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 Set pt's bed into seated position. Pt then pivoted him self to R EOB and used R bedrail to pull and scoot forward. Pt then needed PT to stabilize his walker and he pulled to stand with his walker by leaning forward excessively d/t limited knee flexion. After he stood up, pt started ambulating towards hallway with CGA<> SBA. Pt overall amb with an antalgic gait but appear to be steady and safe. He stated he is walking better than his past couple months. Pt amb a total of 160 ft with FWW and returned to bedside chair. Pt descend himself by WB through his arms primarily with SBA. Pt practiced STS x3 times afterwards with this PT who was safe but poor mechanics d/ t limited knee flexion. Pt reports he is feeling good. Left pt with call ligth placed within reach. Notified MANJU Fairchild and AYAD De Leon with recommendation for HH. Gait Assessment Gait Gait Assistance Required: Standby Assistance Distance (Feet) 160 Able to Maintain Weight Bearing Status Yes During Gait Assistive Devices Assistive Device Gait Belt,Front Wheeled Walker Orthotic/Prosthetic Devices or Brace: No Gait Deviations General Gait Pattern Antalgic,Decreased Stride Length,Decreased Feet Clearance,Flexed Trunk,Lateral Trunk Lean Factors Limiting Gait Function Factors Limiting Gait Function Decreased Activity Tolerance, Decreased Strength,Limited Range of Motion,Pain,Poor Balance Comments Gait Comments see mobility comments. Pt amb with an antalgic gait and excessive knee flexion on R side. Dec stance time noted on RLE. Stair Climbing Assessment Comments Stair Climbing Comments pt has a built in ramp for backdoor entrance PT-Balance Assessment Sitting Balance and Reactions Static Sitting Balance Ability Normal Dynamic Sitting Balance Ability Normal Standing Balance and Reactions Static Standing Balance Ability Good Dynamic Standing Balance Ability Fair Device Used FWW M5 PT-IP Objective Assessments Start: 07/01/20 08:37 Freq: NEEDED Status: Active Protocol: Document 01/05/20 11:09 (Rec: 01/05/20 11:43 [email or web address]) Orientation Orientation/Cognition Level of Alertness Alert Orientation Name,Age,Birthday,Month,Date, Year,Day of Week,Place, Situation Language Function Ability No Deficits Noted Safety Awareness Understands Safety Issues Memory Description No Deficits Noted Gross Range of Motion Upper Extremity ROM Assessment Within Functional Limits Lower Extremity ROM Assessment Bilaterally Impaired Impairments R knee AROM = ~15- 65 L knee AROM= ~10- 75 Strength Upper Extremity Strength Assessment Within Functional Limits Lower Extremity Strength Assessment Bilaterally Impaired Hip 4/5 Knee 4-/5 Ankle 5/5 Coordination Assessment Gross Coordination Gross Coordination WNL Sensation Assessment Sensation Gross Sensation WNL Muscle Tone Muscle Tone WNL Yes M6 PT-IP Treatment Start: 01/05/20 08:37 Freq: NEEDED Status: Active Protocol: Document 01/05/20 11:09 (Rec: 01/05/20 11:43 [email or web address]) Physical Therapy Treatment Exercises Exercises Ankle Pumps,Quad Sets,Heel Slides Education Education Provided Precautions,Weight Bearing Status,Post-Op Packet,Safety M7 PT-IP Assessment and Plan Start: 01/05/20 08:37 Freq: NEEDED Status: Active Protocol: Document 01/05/20 11:09 (Rec: 01/05/20 11:43 [email or web address]) PT Summary Assessment and Plan Potential Rehabilitation Potential Good Status of Condition at Evaluation Stable Summary Impairments Pain,ROM,Strength,Balance,Bed Mobility,Transfers,Gait, Activity Tolerance Progress Towards Goals Slow Progress due to Activity Tolerance Assessment Summary This is a mod complexity evaluation for this 79yo male admitted to d/t R groin pain and hematoma for his R knee with chronic B knee pain. Pt has a history of bilateral atraumatic knee hemarthrosis. Upon assessment, pt reports his groin pain and R knee pain have significantly improved especailly after aspiration. Pt was able to transfer / sit to stand with CGA with FWW with poor technique and mechanics d/t his very limited knee flexion. 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 Pt was also able to amb 160 ft on AC unit with SBA. In my professional opinion and pt's statement, pt is at baseline regarding of his mobility level. Recommended pt to cont use FWW for mobility and d/c home with home health and assistance from Dtr/ son in law if needed. (considering pt is a primary CG for his too) Notified nursing and hospitalist who expect pt to be home later today. Pt will cont to benefit from skilled therapy if he stayed overnight and practice transfer training. Goals Bed Mobility Goal Standby Assistance Transfer Goal Standby Assistance,Cane, Crutches,Front Wheeled Walker, Four Wheeled Walker Gait Goal Standby Assistance,Cane, Crutches,Front Wheel Walker, Four Wheel Walker Gait Distance 200 Other Goals with LRAD Days to Meet Goals 2 Frequency of Treatment Frequency Of Treatment Once a Day Treatment Plan Physical Therapy Treatment Plan Bed Mobility Training,Transfer Training,Gait Training, Therapeutic Exercise,Balance Retraining,Discharge Planning, Neuromuscular Re-ed Other Recommendations and Next Treatment cont transfer training from [employer] high level chair/ reg chair overall mobiltiy with LRAD. KNEE AROM ex Recommendations To Nursing Amount of Assist Needed 1 Person Assist Discharge Recommendations PT Discharge Recommendations Home with Assistance,Home Health Transportation Needs at Discharge Private Vehicle
--- NOTE | 2020-01-05 14:55 | PC.NURSE ---
Discharge: Pt feels ready to d/c home. Tolerates diet w/out problems. Dr Johnson here this morning and asp bloody fluid from knee, pt reports it is easier to walk on leg since. Still hard to sit or stand, this is also due to his groin hernia. Despite this pt would like to go home. SThere isn't anything your doing for me here I can't do at home. Given rx for tramadol. Reviewed d/c packet and questions answered. Pt d/c home via auto w/family.
== END 2020-01-05 14:45 | disposition home or self-care (01) ==
LOC: ED 14:23 → AC 18:19
PROVIDERS: Nurse Practitioner Family; Admitting Provider Internal Medicine; Emergency Provider Emergency Medicine; PCP Internal Medicine; Visit Provider Internal Medicine
DX: M25.061 Hemarthrosis, right knee (principal); R10.31 Right lower quadrant pain; M25.562 Pain in left knee; M25.561 Pain in right knee; J45.909 Unspecified asthma, uncomplicated; R79.1 Abnormal coagulation profile; I50.9 Heart failure, unspecified; M19.90 Unspecified osteoarthritis, unspecified site; I27.20 Pulmonary hypertension, unspecified; N40.1 Benign prostatic hyperplasia with lower urinary tract symptoms; N39.498 Other specified urinary incontinence; Z79.01 Long term (current) use of anticoagulants; E78.5 Hyperlipidemia, unspecified; D50.9 Iron deficiency anemia, unspecified; I48.20 Chronic atrial fibrillation, unspecified
CPT/HCPCS: 20610; 36415; 74177; 76870; 80048; 81001; 83735; 85025; 85610; 96374; 96376; 97116; 97162; 97530; 99284; G0378; J2270

== ENCOUNTER 2020-02-02 19:31 | Observation (INO) | payer MEDICARE, OTHER, SELFPAY ==
[2020-01-04 20:07] VITALS: BMI 31.8
[2020-02-02 19:38] VITALS: BP 127/68; PULSE 67; RESP 14; TEMP 36.3; O2SAT 97; BMI 30.9
--- NOTE | 2020-02-02 20:23 | DI.RAD.S_ITS ---
PROCEDURE: XR KNEE RT 3V INDICATIONS: twisted knee TECHNIQUE: Three views of the knee were acquired. COMPARISON: [facility], CR, XR KNEE RT 3V, 10/02/2019, 23:34. [facility], CR, XR KNEE RT 3V, 06/24/2019, 22:51. [facility], CR, XR KNEE RT 3V, 01/01/2020, 17:28. FINDINGS: Bones: No fractures or dislocations. Widening of the patellofemoral joint with chronic osseous remodeling. There are moderate patellofemoral compartment spurs present. No suspicious bony lesions. Soft tissues: Large joint effusion without change compared to prior. No suspicious soft tissue calcifications. Mild vascular calcification. IMPRESSION: 1. No significant change compared to the prior studies. 2. Large persistent joint effusion expanding the patellofemoral compartment where osseous remodeling and marginal spur formation is present. Dictated by: Alyssa Hayden M.D. on 02/02/2020 at 21:34 Approved by: Alyssa Hayden M.D. on 02/02/2020 at 21:39
--- NOTE | 2020-02-02 23:10 | ED.LOWEXIN ---
HPI - Extremity Injury (Lower) General Chief Complaint: Extremity Injury, Lower Stated Complaint: rt knee pain, twisted it Time Seen by Provider: 02/02/20 20:23 Source: patient Mode of arrival: Wheelchair History of Present Illness HPI Narrative: 79-year-old gentleman anticoagulated on warfarin due to cardiac issues, reflux, hyperlipidemia, significant right knee osteoarthritis with recurrent hemarthrosis. He had been feeling better after recent hospitalization for pain control and similar hemarthrosis issues. Been working with physical therapy and was improving. Today he was walking down his driveway misstepped and twisted the right knee with significant pain immediately. Pain is continuing to increase. Related Data Home Medications Medication Instructions Recorded Confirmed albuterol sulfate [Proventil HFA] 1 puff INH PRN PRN #0 03/22/17 01/04/20 alfuzosin 10 mg PO QPM #0 03/22/17 01/04/20 Pentasa 1,000 mg PO BID #0 03/24/17 01/04/20 calcium carbonate-vitamin D3 3 tab PO DAILY #0 03/31/17 01/04/20 ascorbic acid (vitamin C) 500 mg PO DAILY 05/18/18 01/04/20 aspirin 81 mg PO DAILY 05/18/18 01/04/20 carvedilol 12.5 mg PO DAILY 05/18/18 01/04/20 cholecalciferol (vitamin D3) 2,000 unit PO DIRECTED 05/18/18 01/04/20 [Vitamin D3] cyclobenzaprine 10 mg PO PRN PRN 05/18/18 01/04/20 eplerenone 25 mg PO DAILY 05/18/18 01/04/20 ferrous sulfate 325 mg PO BID 05/18/18 01/04/20 finasteride 5 mg PO DAILY 05/18/18 01/04/20 folic acid 1 mg PO DAILY 05/18/18 01/04/20 furosemide 40 mg PO QPM 05/18/18 01/04/20 furosemide 80 mg PO DAILY 05/18/18 01/04/20 loratadine 10 mg PO DAILY 05/18/18 01/04/20 nitroglycerin [Nitrostat] 0.4 mg SUBLINGUAL Q5-15M PRN 05/18/18 01/04/20 omeprazole 20 mg PO DAILY 05/18/18 01/04/20 potassium chloride 20 meq PO DAILY 05/18/18 01/04/20 simvastatin 20 mg PO BID 05/18/18 01/04/20 sodium fluoride-pot nitrate 1 applic DENTAL QPM 05/18/18 01/04/20 tramadol 50 mg PO Q6H 05/18/18 01/04/20 warfarin 06/29/18 Previous Rx's Medication Instructions Recorded oxycodone-acetaminophen [Percocet] 2 tab PO Q6H PRN #10 tab 05/27/18 tramadol 50 mg PO TID PRN #30 tab 01/05/20 warfarin See Rx Instructions .ROUTE 01/05/20 .COMPLEX #0 tab warfarin See Rx Instructions .ROUTE 01/05/20 .COMPLEX #0 tab Allergies Allergy/AdvReac Type Severity Reaction Status Date / Time ibuprofen Allergy Mild NOT GOOD Verified 02/02/20 19:38 FOR STOMACH BLEEDING iodine Allergy Mild UNKNOWN Verified 02/02/20 19:38 Sulfa (Sulfonamide Allergy Mild BURNED A Verified 02/02/20 19:38 Antibiotics) HOLE THRU INTESTINES thallium-201 Allergy Mild BREAKS OUT Verified 02/02/20 19:38 IN BLOTCHES AND ITCHING terazosin Allergy Hypotension Verified 02/02/20 19:38 spironolactone AdvReac Verified 02/02/20 19:38 Review of Systems Review of Systems Narrative: Pertinent positive and negative findings as per HPI Remainder of review of systems is otherwise unremarkable for Constitutional: Fevers, chills, weakness ENT: No sore throat, neck pain, ear pain CV: Chest pain, palpitations, dyspnea on exertion Respiratory: Cough, wheeze, dyspnea GI: Nausea, vomiting, diarrhea, change in bowel habits, black or bloody stools : Dysuria, hematuria, flank pain Patient History Medical History Asthma (Chronic) Atrial fibrillation (Chronic) CHF (congestive heart failure) (Chronic) Hemarthrosis involving knee joint (Acute) Osteoarthritis (Chronic) Pulmonary hypertension (Chronic) Surgical History H/O mitral valve replacement (Acute) Family History Mother Congestive heart failure Father Coronary artery disease Social History household members: spouse Smoking Status: Never smoker Smoking Status: Never smoker alcohol intake frequency: holidays/special occasions only Substance Use Type: does not use Exam Narrative Exam Narrative: General: Alert appropriate in no acute distress Respiratory: Able to speak in full sentences, no obvious respiratory distress Skin: No obvious rashes, warm and dry Neurologic: Grossly intact no obvious asymmetries or abnormalities Psych, appropriate insight and affect, cooperative Extremities: Both extremities with thigh-high compression socks. Moderate effusion right knee with limited mobility worse than the left side. No contusions, no warmth and no discoloration to the knee. Initial Vital Signs Initial Vital Signs: Vital Signs Temperature 97.3 F L 02/02/20 19:38 Pulse Rate 67 02/02/20 19:38 Respiratory Rate 14 02/02/20 19:38 Blood Pressure 127/68 02/02/20 19:38 Pulse Oximetry 97 02/02/20 19:38 Course Orders Ordered: ED Orders 02/02/20 20:23 XR knee RT 3V Stat 02/02/20 23:25 Prothrombin Time INR Stat Discontinued Medications Oxycodone/Acetaminophen (Percocet 5/325) 1 tab PO NOW ONE Stop: 02/02/20 23:21 Last Admin: 02/02/20 23:27 Dose: 1 tab Documented by: MAINFARL Oxycodone/Acetaminophen (Percocet 5/325) 1 tab PO NOW ONE Stop: 02/03/20 02:16 Last Admin: 02/03/20 02:27 Dose: 1 tab Documented by: BARRYL Phytonadione (Mephyton) 5 mg PO NOW ONE Stop: 02/03/20 02:16 Last Admin: 02/03/20 02:27 Dose: 5 mg Documented by: MAINFARL Vital Signs Vital signs: Vital Signs - 8 hr 02/02/20 19:38 Temperature 97.3 F L Pulse Rate 67 Respiratory Rate 14 Blood Pressure 127/68 Pulse Oximetry 97 MDM - Extremity Injury (Lower) Lab Data Labs: Lab Results 02/02/20 Range/Units 23:25 PT 29.6 H (10.1-12.7) SECONDS INR 2.6 H (0.9-1.3) Imaging Data knee xray: Radiologist's Impression: IMPRESSION: 1. No significant change compared to the prior studies. 2. Large persistent joint effusion expanding the patellofemoral compartment where osseous remodeling and marginal spur formation is present. Dictated by: Alyssa Hayden M.D. on 02/02/2020 at 21:[address] [facility] Narrative Medical decision making narrative: 79-year-old gentleman with significant osteoarthritis on Coumadin with recurrent hemarthrosis. Stumbled today re-injured his right knee and it now has a new effusion. INR is currently pending but this is presumably another hemarthrosis. He is in significant pain. He took his usual tramadol this afternoon with no help or affect. He is unable to walk or even move his leg at this point due to pain. X-rays are unremarkable. INR is 2.6. Case is reviewed with Dr. Simmons, orthopedic surgeon. Will give him 5 mg of vitamin K, admit him to the hospitalist service overnight for medical management and pain control. Once INR is in subtherapeutic range will anticipate needle aspiration of presumed hemarthrosis. Pain control continues to be an issue and the patient is unable to put any weight at all or even move the right leg. Discharge Plan Departure Patient Disposition: Admitted as Observation Clinical Impression: Hemarthrosis involving knee joint Qualifiers: Laterality: right Qualified Code(s): M25.061 - Hemarthrosis, right knee Osteoarthritis Qualifiers: Osteoarthritis location: knee Osteoarthritis type: unspecified Laterality: right Qualified Code(s): M17.11 - Unilateral primary osteoarthritis, right knee Referrals: Barrera Roth MD [Primary Care Provider] - Admit Date/Time: 02/03/20 02:34 Admit Provider: Priyanka Nunez
[2020-02-02] MEDS: OXYCODONE/ACETAMINOPHEN 5/325 TABLET 1 TAB PO (23:27)
[2020-02-02 23:41] LABS: INR 2.6 (0.9-1.3); Prothrombin Time 29.6 SECONDS (10.1-12.7)
[2020-02-03] VITALS (10 sets, daily range): BP systolic 107–129; BP diastolic 58–78; PULSE 66–78; RESP 14–20; TEMP 36.3–36.9; O2SAT 93–99; BMI 30.9
[2020-02-03] MEDS: OXYCODONE/ACETAMINOPHEN 5/325 TABLET 1 TAB PO (02:27)
[2020-02-03] MEDS: PHYTONADIONE (VIT K1) 5 MG TABLET PO (02:27)
--- NOTE | 2020-02-03 03:33 | PC.ADMIT ---
[id number] Admission Note:Pt arrived to unit 0310. Pt denies any complaints. Reports pain 07/16. Pt tolerating. VSS. Skin check with with MANJU Vazquez. The patient,Tramaine Medeiros,79 y/o, was given written information regarding hospital policies, unit procedures and contact persons. Patient's smoking status: Never smoker. Vital Signs - 8 hr 02/02/20 19:38 02/03/20 00:35 02/03/20 03:01 Temperature 97.3 F L Pulse Rate 67 70 71 Respiratory Rate 14 18 15 Blood Pressure 127/68 123/72 119/72 Pulse Oximetry 97 99 95
[2020-02-03 03:58] LABS: COVID19 -Nasal RAPID Negative (Negative)
--- NOTE | 2020-02-03 04:49 | PM.HP.1 ---
History of Present Illness History of Present Illness Date Patient Seen: 02/03/20 Time Patient Seen: 03:30 Chief complaint: rt knee pain, twisted it Narrative: Tramaine Medeiros is a active 79-year-old male with a history of atrial fibrillation, congestive heart failure, history of acute respiratory failure, pulmonary hypertension, osteoarthritis of the right knee with a past history of hemarthrosis involving the right knee joint presents today after having worked with physical therapy and re-injuring his right knee. He is anticoagulated on warfarin. He was seen by orthopedic surgery who agreed that he may need to have his knee drained and would like him placed in observation and his INR reversed so that it can be closer to 1.8 prior to them tapping his knee joint. Today his INR is 2.6. He denies losing consciousness, he states he was just finished working with physical therapy and was walking on uneven pavement when he turned and twisted his knee. X-ray of the right knee indicated Large persistent joint effusion expanding the patellofemoral compartment where osseous remodeling and marginal spur formation is present. Patient stated that he sees Dr. Andersen for his knee problems, stated that this is the 5th time he has injured this knee resulting in a hemarthrosis and at this point states that he feels that he is going to eventually need surgery on this knee. Patient denies syncope, shortness of breath, chest pain, dysuria, nausea vomiting, abdominal pain, diarrhea or constipation. Patient was afebrile with a temperature of 97.9, blood pressure 127/68, heart rate 77, respiratory rate 20, oxygen saturation of 95% on room air, his weight is 79.3 kilos with a BMI of 30.9. Patient History Medical History Asthma (Chronic) Atrial fibrillation (Chronic) CHF (congestive heart failure) (Chronic) Hemarthrosis involving knee joint (Acute) Osteoarthritis (Chronic) Pulmonary hypertension (Chronic) Surgical History H/O mitral valve replacement (Acute) Family & Social History Family History Mother Congestive heart failure Father Coronary artery disease Social History: household members spouse Safety & Behavioral: Feels Safe in Current Yes Environment Been Physically Hurt or No Threatened By a Person Suicidal Ideation Description None Suicide Plan Description No Plan Tobacco & Substance use: Smoking Status Never smoker alcohol intake frequency holiday/special occasion Substance Use Type does not use Meds Home Medications and Allergies Home Medications Medication Instructions Recorded Confirmed Type albuterol sulfate [Proventil HFA] 2 puff INH PRN PRN #0 03/22/17 02/03/20 History Pentasa 1,000 mg PO BID #0 03/24/17 02/03/20 History calcium carbonate-vitamin D3 3 tab PO DAILY #0 03/31/17 02/03/20 History ascorbic acid (vitamin C) 500 mg PO DAILY 05/18/18 02/03/20 History aspirin 81 mg PO DAILY 05/18/18 02/03/20 History carvedilol 12.5 mg PO DAILY 05/18/18 02/03/20 History cholecalciferol (vitamin D3) 2,000 unit PO DIRECTED 05/18/18 02/03/20 History [Vitamin D3] cyclobenzaprine 10 mg PO PRN PRN 05/18/18 02/03/20 History eplerenone 25 mg PO DAILY 05/18/18 02/03/20 History ferrous sulfate 325 mg PO BID 05/18/18 02/03/20 History finasteride 5 mg PO DAILY 05/18/18 02/03/20 History folic acid 1 mg PO DAILY 05/18/18 02/03/20 History furosemide 40 mg PO QPM 05/18/18 02/03/20 History furosemide 80 mg PO DAILY 05/18/18 02/03/20 History loratadine 10 mg PO DAILY 05/18/18 02/03/20 History nitroglycerin [Nitrostat] 0.4 mg SUBLINGUAL Q5-15M PRN 05/18/18 02/03/20 History omeprazole 20 mg PO DAILY 05/18/18 02/03/20 History potassium chloride 20 meq PO DAILY 05/18/18 02/03/20 History simvastatin 20 mg PO BID 05/18/18 02/03/20 History sodium fluoride-pot nitrate 1 applic DENTAL QPM 05/18/18 02/03/20 History tramadol 50 mg PO Q6H 05/18/18 02/03/20 History oxycodone-acetaminophen [Percocet] 2 tab PO Q6H PRN #10 tab 05/27/18 02/03/20 Rx tramadol 50 mg PO TID PRN #30 tab 01/05/20 02/03/20 Rx warfarin See Rx Instructions .ROUTE 01/05/20 02/03/20 Rx .COMPLEX #0 tab warfarin See Rx Instructions .ROUTE 01/05/20 02/03/20 Rx .COMPLEX #0 tab Allergies Allergy/AdvReac Type Severity Reaction Status Date / Time ibuprofen Allergy Mild NOT GOOD Verified 02/02/20 19:38 FOR STOMACH BLEEDING iodine Allergy Mild UNKNOWN Verified 02/02/20 19:38 Sulfa (Sulfonamide Allergy Mild BURNED A Verified 02/02/20 19:38 Antibiotics) HOLE THRU INTESTINES thallium-201 Allergy Mild BREAKS OUT Verified 02/02/20 19:38 IN BLOTCHES AND ITCHING terazosin Allergy Hypotension Verified 02/02/20 19:38 spironolactone AdvReac Verified 02/02/20 19:38 Review of Systems Review of Systems ROS: Yes All systems reviewed with the patient and are negative except as otherwise documented Exam Vital Signs (past 8 hours): - 02/03/20 00:35 02/03/20 03:01 02/03/20 03:15 Temperature 97.9 F Pulse Rate 70 71 77 Respiratory Rate 18 15 20 Blood Pressure 123/72 119/72 127/68 Pulse Oximetry 99 95 95 Oxygen Delivery Method Room Air Narrative Exam Narrative: Gen: Alert, oriented, well-developed 79 y.o. male, appears younger than stated age HEENT: normocephalic, atraumatic, conjunctiva clear, sclera non-icteric, oral mucosa pink and moist Neck: supple, full ROM, no JVD, trachea is midline Resp: Lungs CTA, non-labored breathing CV: RRR, no murmur or rubs Abd: soft, non-tender, normoactive BTs Skin: no lesions or rashes, dry and intact Neuro: Alert and oriented X 4 w/no focal deficits. Speech clear and coherent. Extremities: Right knee is swollen compared to the left, moves all 4 extremities, is ambulatory, negative Edwin?s sign Psyche: normal mood and affect. Objective Labs Labs: Laboratory Results - last 24 hr 02/02/20 02/03/20 23:25 02:30 PT 29.6 H INR 2.6 H COVID-19 PCR Negative Assessment & Plan Assessment & Plan narrative: Tramaine Medeiros will remain in observation and his INR reversed so that he can undergo a drainage of his right knee. Joint effusion of the right knee, acute, present on admission -orthopedic surgery to see the patient in the morning -they have requested reversing his INR to 1.8. Warfarin was held tonight and he received a oral dose of vitamin K 5 mg in the ED. -he will need to have an INR in the morning. -pain control with Percocet and Tylenol Atrial fibrillation, chronic, present on admission -cardiac telemetry -holding warfarin until 1 or 2 days after his joint tap -monitor INR daily CAD, chronic -continue home dose of carvedilol 12 5 mg p.o. daily -continue home dose of eplerenone 25 mg p.o. daily, patient may need to have a family member bring this medication -holding aspirin Congestive heart failure, chronic, appears to be stable -continue home doses of furosemide 80 mg p.o. daily and 40 mg p.o. q.p.m. BPH Continue home dose of finasteride 5 mg p.o. daily Chronic anemia Continue home dose of ferrous sulfate 325 mg p.o. b.i.d. Chronic IBD -continue Pentasa 1000 mg p.o. b.i.d. Consults: Dr. Simmons, consult and involvement is appreciated. Patient is observation status as his stay is not likely to exceed 2 midnights. FEN: Saline lock, heart healthy diet, BMP and magnesium in the am. VTE prophylaxis: Bilateral SCDs Dispo: Probable discharge to home Code Status: Full code as discussed with patient COVID-19 COVID-19 status: Negative Result date/Date tested (Pos, Neg/Pending): 02/03/20
[2020-02-03 05:03] LABS: Add Manual Diff / Slide Review NO; Basophils Absolute Auto 0 /uL (0-100); Basophils Percent Auto 0.6 % (0-2); Eosinophils Absolute Auto 100 /uL (0-450); Eosinophils Percent Auto 2.3 % (2-4); Hematocrit 27.8 % (41-53); Lymphocytes Absolute Auto 900 /uL (1100-4500); Lymphocytes Percent Auto 20.1 % (25-40); Mean Corpuscular HGB Conc 32.3 % (30-36); Mean Corpuscular Hemoglobin 27.2 PG (26-34); Mean Corpuscular Volume 84.4 fL (80-100); Monocytes Absolute Auto 600 /uL (0-900); Monocytes Percent Auto 14.6 % (3-14); Neutrophils Absolute Auto 2700 /uL (1500-7000); Neutrophils Percent Auto 62.4 % (50-75); Platelet Count 118 X10^3/uL (150-400); Red Blood Cell Count 3.29 X10^6/uL (4.5-5.9); Red Cell Distribution Width 16.6 % (11.6-14.8); White Blood Cell Count 4.3 X10^3/uL (4.5-11.0)
[2020-02-03 05:07] LABS: INR 2.5 (0.9-1.3); Prothrombin Time 28.6 SECONDS (10.1-12.7)
[2020-02-03 05:11] LABS: BUN Creatinine Ratio 22.4 (6-22); Blood Urea Nitrogen 15 mg/dL (9-20); Calcium 8.9 mg/dL (8.4-10.2); Carbon Dioxide 37 mmol/L (22-32); Chloride 98 mmol/L (98-107); Estimated Glomerular Filt Rate > 60.0 mL/min (>60); Glucose 98 mg/dL (80-110); HEMOLYSIS < 15 (0-50); Potassium 3.6 mmol/L (3.4-5.1); Sodium 136 mmol/L (137-145)
[2020-02-03] MEDS: OXYCODONE/ACETAMINOPHEN 5/325 TABLET 2 TAB PO ×2 (09:09→09:55)
[2020-02-03] MEDS: PANTOPRAZOLE 20 MG TABLET PO (09:11)
[2020-02-03] MEDS: PHYTONADIONE (VIT K1) 5 MG in DEXTROSE 5 % IN WATER 50 ML 101 ML IV (09:12)
[2020-02-03] MEDS: carvediloL 25 MG TABLET 12.5 MG PO (09:13)
[2020-02-03] MEDS: FERROUS SULFATE 325 MG TABLET PO ×2 (09:55→20:24)
--- NOTE | 2020-02-03 11:02 | PC.NURSE ---
AM shift Pt is A/o x4, [place] [place], ambulates with 2 canes at home but can use a FWW as well. [facility] follows Pt At home, and will plan to at time of DC as well. 1PA, up with PT and ambulated 200 ft in olguin this AM. Pain has been controlled with Percocet. 2 tabs, not using the scheduled Tramadol. Vit K given this AM, await Ortho consult, for draining R knee. Dr Dumont ok'd Pt meals at this time.
--- NOTE | 2020-02-03 12:00 | P.CONS_ITS ---
History of Present Illness Consult details Date Patient Seen: 02/03/20 Time Patient Seen: 12:00 Chief complaint: rt knee pain, twisted it Reason for consult: Right knee swelling Requesting provider: Priyanka Nunez Narrative: 79-year-old gentleman with a long history of right knee arthritis. Patient is also on Coumadin. He has had multiple episodes of hemarthrosis to that right knee. Last episode was 2 weeks ago requiring a arthrocentesis of the right knee. Patient states yesterday he was working with his therapist and then had a twisting injury to the knee and this resulted in a recurring hemarthrosis causing him quite a bit of pain. Patient states this is his 5th episode. Patient sees Dr. Andersen for his knee. Meds Home Medications and Allergies Home Medications Medication Instructions Recorded Confirmed Type albuterol sulfate [Proventil HFA] 2 puff INH PRN PRN #0 03/22/17 02/03/20 History Pentasa 1,000 mg PO BID #0 03/24/17 02/03/20 History calcium carbonate-vitamin D3 3 tab PO DAILY #0 03/31/17 02/03/20 History ascorbic acid (vitamin C) 500 mg PO DAILY 05/18/18 02/03/20 History aspirin 81 mg PO DAILY 05/18/18 02/03/20 History carvedilol 12.5 mg PO DAILY 05/18/18 02/03/20 History cholecalciferol (vitamin D3) 2,000 unit PO DIRECTED 05/18/18 02/03/20 History [Vitamin D3] cyclobenzaprine 10 mg PO PRN PRN 05/18/18 02/03/20 History eplerenone 25 mg PO DAILY 05/18/18 02/03/20 History ferrous sulfate 325 mg PO BID 05/18/18 02/03/20 History finasteride 5 mg PO DAILY 05/18/18 02/03/20 History folic acid 1 mg PO DAILY 05/18/18 02/03/20 History furosemide 40 mg PO QPM 05/18/18 02/03/20 History furosemide 80 mg PO DAILY 05/18/18 02/03/20 History loratadine 10 mg PO DAILY 05/18/18 02/03/20 History nitroglycerin [Nitrostat] 0.4 mg SUBLINGUAL Q5-15M PRN 05/18/18 02/03/20 History omeprazole 20 mg PO DAILY 05/18/18 02/03/20 History potassium chloride 20 meq PO DAILY 05/18/18 02/03/20 History simvastatin 20 mg PO BID 05/18/18 02/03/20 History sodium fluoride-pot nitrate 1 applic DENTAL QPM 05/18/18 02/03/20 History tramadol 50 mg PO Q6H 05/18/18 02/03/20 History oxycodone-acetaminophen [Percocet] 2 tab PO Q6H PRN #10 tab 05/27/18 02/03/20 Rx tramadol 50 mg PO TID PRN #30 tab 01/05/20 02/03/20 Rx warfarin See Rx Instructions .ROUTE 01/05/20 02/03/20 Rx .COMPLEX #0 tab warfarin See Rx Instructions .ROUTE 01/05/20 02/03/20 Rx .COMPLEX #0 tab Allergies Allergy/AdvReac Type Severity Reaction Status Date / Time ibuprofen Allergy Mild NOT GOOD Verified 02/02/20 19:38 FOR STOMACH BLEEDING iodine Allergy Mild UNKNOWN Verified 02/02/20 19:38 Sulfa (Sulfonamide Allergy Mild BURNED A Verified 02/02/20 19:38 Antibiotics) HOLE THRU INTESTINES thallium-201 Allergy Mild BREAKS OUT Verified 02/02/20 19:38 IN BLOTCHES AND ITCHING terazosin Allergy Hypotension Verified 02/02/20 19:38 spironolactone AdvReac Verified 02/02/20 19:38 Review of Systems Review of Systems ROS: Yes All systems reviewed with the patient and are negative except as otherwise documented Exam Vital Signs (past 8 hours): - 02/03/20 06:05 02/03/20 07:00 02/03/20 09:20 Temperature 98.4 F Pulse Rate 74 71 Respiratory Rate 17 Blood Pressure 129/78 Pulse Oximetry 97 93 Oxygen Delivery Method Room Air Oxygen Flow Rate 0 Narrative Exam Narrative: Patient with swelling to the right knee but no sign of any cellulitis or erythema. Patient is relatively comfortable at rest. Is able to flex and extend the knee in a sitting position with little to pain. No sign of any infectious process. Objective Labs Result Diagrams: 02/03/20 04:39 02/03/20 04:39 Labs: Laboratory Results - last 24 hr 02/02/20 02/03/20 02/03/20 23:25 02:30 03:15 WBC RBC Hgb Hct MCV MCH MCHC RDW Plt Count Neut % (Auto) Lymph % (Auto) [place] % (Auto) Eos % (Auto) Baso % (Auto) Neut # (Auto) Lymph # (Auto) [place] # (Auto) Eos # (Auto) Baso # (Auto) PT 29.6 H INR 2.6 H Sodium Potassium Chloride Carbon Dioxide BUN Creatinine Estimated GFR BUN/Creatinine Ratio Glucose Calcium Nasal Screen MRSA (PCR) Negative for mrsa COVID-19 PCR Negative 02/03/20 02/03/20 02/03/20 04:39 04:39 04:39 WBC 4.3 L RBC 3.29 L Hgb 9.0 L Hct 27.8 L MCV 84.4 MCH 27.2 MCHC 32.3 RDW 16.6 H Plt Count 118 L Neut % (Auto) 62.4 Lymph % (Auto) 20.1 L [place] % (Auto) 14.6 H Eos % (Auto) 2.3 Baso % (Auto) 0.6 Neut # (Auto) 2700 Lymph # (Auto) 900 L [place] # (Auto) 600 Eos # (Auto) 100 Baso # (Auto) 0 PT 28.6 H INR 2.5 H Sodium 136 L Potassium 3.6 Chloride 98 Carbon Dioxide 37 H BUN 15 Creatinine 0.67 Estimated GFR > 60.0 BUN/Creatinine Ratio 22.4 H Glucose 98 Calcium 8.9 Nasal Screen MRSA (PCR) COVID-19 PCR Assessment & Plan Assessment & Plan narrative: Patient with a recurring hemarthrosis to the right knee. Discussed a aspiration of the right knee to try to get some of the fluid off the knee to help with the pain. Patient was interested in a repeat hemarthrosis. Time Spent With Patient Time with patient: 15-24 minutes
--- NOTE | 2020-02-03 12:04 | PM.PROC.1 ---
Procedures Date/Time Date of procedure: 02/03/20 Time of procedure: 11:50 Joint Aspiration/Injection Time out performed: No Side of body: right Joint aspirated: knee Ultrasound guidance: No Skin prep: sterile prep and drape Local anesthesia used: lidocaine 1% Amount of anesthesia used (ml): 5 Needle size used: 18G Fluid obtained: bloody Total fluid obtained (ml): 30 Patient tolerated procedure: well Complications: none Additional comments: Patient's knee was prepped in a normal sterile fashion and 5 cc of 1% lidocaine was injected in a superior portal site. Once we had adequate anesthesia an 18 gauge spinal needle was inserted into the knee joint and were able to retrieve 30 cc of thick bloody fluid. No sign of any infectious process. Some signs of clotted hematoma making it difficult to aspirate all of the fluid in the knee.
--- NOTE | 2020-02-03 12:06 | PT.IIE ---
Surgical History (Last Reviewed 02/03/20 @ 12:02 by Burt Simmons MD) H/O mitral valve replacement (Acute) Medical History (Last Reviewed 02/03/20 @ 12:02 by Burt Simmons MD) Asthma (Chronic) Atrial fibrillation (Chronic) CHF (congestive heart failure) (Chronic) Hemarthrosis involving knee joint (Acute) Osteoarthritis (Chronic) Pulmonary hypertension (Chronic) Physical Therapy Inpatient Evaluation/Re-Eval M1 PT/OT-IP Prior Functional Status Start: 02/03/20 08:56 Freq: NEEDED Status: Active Protocol: Document 02/03/20 10:58 AW (Rec: 02/03/20 12:06 AW [id number]) Medical Review Prior Functional Status Medical History Reviewed Yes Communication Pt is [place] and wears hearing aids. He is an effective verbal communicator. Mobility and Gait Pt uses B SPC or 4WW for modified indpendent household mobility due to bilateral knee pain. Pt has limited B knee ROM with severely limited flexion. He tends to sit and sleep in his lift recliner. If not using the lift function, he stands by pulling forward on the chair, positioning his legs with B canes, and pushing off the chair arms with excessive forward lean to reach standing with B SPC. Pt reports no falls over the past year. Activities of Daily Living and IADL's Pt is primary caregiver for his who has a heart condition herself. He assists his with ADL's and housework. Pt's daughter and son-in-law live next door and provide assist with grocery and other shopping. Pt is able to drive but his daughter often drives him to appointments Prior Functional Level (Other details) Pt has had [facility] since last discharge 01/05/20. Social History Household Members spouse Living Arrangements House Number of Floors (Floors) One Floor Number of Stairs To Enter/Railing? 1 [place] at front of the house. Ramped entry in the back of the house. Home Environment High Toilet,Walk in Shower Home Equipment Four Wheel Walker,Straight Cane,Crutches,Manual Wheelchair,Power Wheelchair/ Scooter,Shower Seat with Backrest,Hand Held Shower, Billposter,Grab Bars Near Toilet Additional Social History Comment Tramaine lives with his in [place]. His daughter and her live next door. He is on anti-coagulation following open heart surgery. He has history of atraumatic B knee hemarthroses which have been drained on multiple occasions. M2 PT-IP Current Condition Start: 02/03/20 08:56 Freq: NEEDED Status: Active Protocol: Document 02/03/20 10:58 AW (Rec: 02/03/20 12:06 AW [id number]) Physical Therapy Current Condition Current Condition Evaluation Date 02/03/20 Treatment Diagnosis Effusion R knee; difficulty in walking Onset Date 02/02/20 M3 PT-IP Subjective Start: 02/03/20 08:56 Freq: NEEDED Status: Active Protocol: Document 02/03/20 10:58 AW (Rec: 02/03/20 12:06 AW [id number]) Subjective Physical Therapy Visit Type Type Initial Evaluation Visit Start Time 09:59 Visit Stop Time 10:25 Total Visit Minutes 26 Notes Ortho has been consulted but has not yet seen the pt. Physical Therapy Visit Comments Patient Comments I'd like to get up. Therapy Pain Assessment Pain When Pain Assessed During Mobility Pain Present Pain Present Pain Reported Location Right Knee Intensity 4 Scale Used Numeric (0 - 10) Pain Management Techniques Apply Cold,Timing of Activity with Medications M4 PT-IP Mobility and Gait Start: 02/03/20 08:56 Freq: NEEDED Status: Active Protocol: Document 02/03/20 10:58 AW (Rec: 02/03/20 12:06 AW [id number]) PT-Transfer Assessment Sit to and From Stand Sit to and from Stand Contact Guard Assistance,Use of Upper Extremities Equipment Transfer Assistive Device Straight Cane Orthotic/Prosthetic Devices or Brace: No Transfers Transfer Destination Chair Transfer Technique pt amb with FWW Transfer Ability Level of Assist Contact Guard Assistance Comments Mobility Comments Pt was sitting up in the chair upon PT arrival. He completed sit to stand CGA by pulling himself forward on the chair and using B SPC to position his legs. With excessive forward trunk lean due to limited B knee flexion, pt stood CGA. He ambulated 3 feet with B SPC CGA before transferring to a FWW. At that point, he continued to ambulate in the halls 200 feet with FWW SBA. Pt returned to the room, declining bed mobility assessment. He transferred to the chair SBA using B SPC. He was positioned there with call light and all needs in reach. Gait Assessment Gait Gait Assistance Required: Standby Assistance,Contact Guard Assist Distance (Feet) 200 Assistive Devices Assistive Device Gait Belt,Straight Cane,Front Wheeled Walker Gait Deviations General Gait Pattern Antalgic,Decreased Stride Length,Decreased Feet Clearance,Flexed Trunk Factors Limiting Gait Function Factors Limiting Gait Function Decreased Activity Tolerance, Decreased Strength,Limited Range of Motion,Pain,Poor Balance Comments Gait Comments Gait was characterized by limited knee flexion and reduced stance time on RLE. See mobility comments for details. Stair Climbing Assessment Comments Stair Climbing Comments Not assessed due to pain. Pt has ramped entry at back of house. PT-Balance Assessment Sitting Balance and Reactions Static Sitting Balance Ability Normal Dynamic Sitting Balance Ability Normal Standing Balance and Reactions Static Standing Balance Ability Good Dynamic Standing Balance Ability Fair Device Used FWW M5 PT-IP Objective Assessments Start: 02/03/20 08:56 Freq: NEEDED Status: Active Protocol: Document 02/03/20 10:58 AW (Rec: 02/03/20 12:06 AW [id number]) Orientation Orientation/Cognition Level of Alertness Alert Orientation Name,Day of Week,Place, Situation Language Function Ability No Deficits Noted Safety Awareness Understands Safety Issues Memory Description No Deficits Noted Gross Range of Motion Upper Extremity ROM Assessment Within Functional Limits Lower Extremity ROM Assessment Bilaterally Impaired Impairments R knee AROM ~15-65 L knee AROM ~10-75 Strength Upper Extremity Strength Assessment Within Functional Limits Lower Extremity Strength Assessment Bilaterally Impaired Hip 4/5 Knee 3+/5 Ankle 4+/5 Coordination Assessment Gross Coordination Gross Coordination WNL Sensation Assessment Sensation Gross Sensation WNL Muscle Tone Muscle Tone WNL Yes M6 PT-IP Treatment Start: 02/03/20 08:56 Freq: NEEDED Status: Active Protocol: Document 02/03/20 10:58 AW (Rec: 02/03/20 12:06 AW [id number]) Physical Therapy Treatment Exercises Exercises Ankle Pumps,Quad Sets Education Education Provided Safety Other Treatments Other Treatment Performed Provided education on role of PT, plan of care, rationale for selection of assistive device. M7 PT-IP Assessment and Plan Start: 02/03/20 08:56 Freq: NEEDED Status: Active Protocol: Document 02/03/20 10:58 AW (Rec: 02/03/20 12:06 AW [id number]) PT Summary Assessment and Plan Potential Rehabilitation Potential Good Status of Condition at Evaluation Evolving Summary Impairments Pain,ROM,Strength,Balance,Bed Mobility,Transfers,Gait, Activity Tolerance Assessment Summary Tramaine is an 79 yo gentleman seen for PT evaluation after being admitted with R knee hemarthrosis and effusion. He has history of multiple hemarthroses which typically respond well to draining. Pt has had [facility] since last discharge on 01/05/20. Pt is modified independent at baseline with use of B SPC or 4WW. Due to his limited knee flexion, pt required CGA for sit to stand using B SPC on evaluation and SBA for ambulation 200 feet with FWW. Pt is near baseline for mobility status but PT will continue to follow after orthopedics consult and possible aspiration right knee . Pt will benefit from resumption of HH PT at discharge. Goals Bed Mobility Goal Standby Assistance Transfer Goal Standby Assistance,Cane Gait Goal Standby Assistance,Front Wheel Walker Gait Distance 250 Other Goals transfers with B SPC or LRAD Days to Meet Goals 2 Frequency of Treatment Frequency Of Treatment Once a Day Treatment Plan Physical Therapy Treatment Plan Bed Mobility Training,Transfer Training,Gait Training, Therapeutic Exercise,Balance Retraining,Discharge Planning, Hot or Cold Pack,Neuromuscular Re-ed Other Recommendations and Next Treatment transfer training; mobilize Focus with LRAD; AROM knee ther ex Recommendations To Nursing Amount of Assist Needed 1 Person Assist Discharge Recommendations PT Discharge Recommendations Home with Assistance,Home Health Transportation Needs at Discharge Private Vehicle
--- NOTE | 2020-02-03 12:25 | PM.PN.1 ---
Subjective Subjective Date Patient Seen: 02/03/20 Interval history: Brief progress note: Patient seen and examined. Patient received vitamin K 5 mg PO and another 5 mg IV for persistently elevated INR of 2.5. Consulted orthopedic surgery, Dr. Simmons, who performed right knee joint aspiration for hemarthrosis. The patient reports significant pain relief with joint aspiration. Physical exam unchanged other than right leg wrapped with MICHOACANO bandage C/D/I. Agree with previous outlined assessment and plan. Plan to get patient up and mobilize with physical and occupational therapy today. Plan to observe patient overnight to assure that he has no rebleeding and continue mobilization. Patient likely will discharge home with continued home health tomorrow if he does not rebleed and is mobilizing well. Exam Vital Signs (past 8 hours): - 02/03/20 06:05 02/03/20 07:00 02/03/20 09:20 Temperature 98.4 F Pulse Rate 74 71 Respiratory Rate 17 Blood Pressure 129/78 Pulse Oximetry 97 93 02/03/20 12:17 Temperature 97.4 F L Pulse Rate 66 Respiratory Rate 14 Blood Pressure 110/58 L Pulse Oximetry 94 Oxygen Delivery Method Room Air Oxygen Flow Rate 0 Objective Labs Result Diagrams: 02/03/20 04:39 02/03/20 04:39 Labs: Laboratory Results - last 24 hr 02/02/20 02/03/20 02/03/20 23:25 02:30 03:15 WBC RBC Hgb Hct MCV MCH MCHC RDW Plt Count Neut % (Auto) Lymph % (Auto) [place] % (Auto) Eos % (Auto) Baso % (Auto) Neut # (Auto) Lymph # (Auto) [place] # (Auto) Eos # (Auto) Baso # (Auto) PT 29.6 H INR 2.6 H Sodium Potassium Chloride Carbon Dioxide BUN Creatinine Estimated GFR BUN/Creatinine Ratio Glucose Calcium Nasal Screen MRSA (PCR) Negative for mrsa COVID-19 PCR Negative 02/03/20 02/03/20 02/03/20 04:39 04:39 04:39 WBC 4.3 L RBC 3.29 L Hgb 9.0 L Hct 27.8 L MCV 84.4 MCH 27.2 MCHC 32.3 RDW 16.6 H Plt Count 118 L Neut % (Auto) 62.4 Lymph % (Auto) 20.1 L [place] % (Auto) 14.6 H Eos % (Auto) 2.3 Baso % (Auto) 0.6 Neut # (Auto) 2700 Lymph # (Auto) 900 L [place] # (Auto) 600 Eos # (Auto) 100 Baso # (Auto) 0 PT 28.6 H INR 2.5 H Sodium 136 L Potassium 3.6 Chloride 98 Carbon Dioxide 37 H BUN 15 Creatinine 0.67 Estimated GFR > 60.0 BUN/Creatinine Ratio 22.4 H Glucose 98 Calcium 8.9 Nasal Screen MRSA (PCR) COVID-19 PCR
[2020-02-03] MEDS: MESALAMINE 250 MG CAPSULE.ER 1000 MG PO ×2 (12:30→20:23)
[2020-02-03] MEDS: FINASTERIDE 5 MG TABLET PO (12:30)
--- NOTE | 2020-02-03 12:38 | OT.IPNOTE ---
Pt here for twisted right knee pain and s/p right knee aspiration. Pt states is completely independent with all ADl needs and uses a 4WW. Pt also has daughter to assist with needs. Pt feels OT not needed at this time and therefore discharge OT eval orders. PT to continue to follow pt for mobility needs and pt hopes to continue his HH PT after discharge.
--- NOTE | 2020-02-03 13:31 | CM.DANOTE ---
Discharge Planning/Care Management DCP: assessment: case received and met with pt during Team Bedside Rounds. Introduced self and role. EMR now reviewed. PT is an 79 year old male who admitted early this morning to care of hospitalist team. Collaborating Supervising Physician: Dr. Simmons/orthopedic group Payer: Medicare and [employer]. Readmit: noted: see template below for details. Pt reports he was out in his yard [facility] when he twisted his knee. It's the 5th time this has happened. Pt is on warfarin. Dr. Simmons took pt to surgery for aspiration of bloody/partially clotted fluid. P: at this time Dr. Dumont states pt will be monitored overnight to insure no more bleeding and, if stable for same, will d/c to home tomorrow with resumption of HH. [facility] has now faxed clinicals to [facility]. Have spoken with R[facility]: he confirms RN and PT are seeing pt. Have added OT now as pt has such a history of twisting the leg. Resume HH plus OT order are obtained and this also is faced to [facility]. P: will check in tomorrow and follow accordingly. CM Discharge Assessment Start: 02/03/20 13:25 Freq: Status: Active Protocol: Document 02/03/20 13:25 ITV (Rec: 02/03/20 13:30 ITV [id number]) Discharge Planning Assessment Advance Directives? Yes Advance Directives on File No History Provided By Patient,Medical Record Has Patient been admitted in last 30 Yes days? Comment Pt was admitted 01/03 and d/c'd home on 01/04 with OUTPT PT planned. Prior Living Arrangements House Household Members spouse Type of transportation used prior to Drives own vehicle admit Comment at baseline he drives but not currently. Is patient alert and oriented? Yes Comment pt has been receiving services from [facility] . DME Already Rented / Owned Cane Comment uses bilateral single point canes. states he was not using them when he twisted his knee this last time. Patient/Family Preference Home with Home Health Discharge Plan Home Referrals Initiated Home Health Medicare Choice List Provided Yes SNF/HH Preference [facility] : pt says he is pleased with their services. adding OT to RN and PT disciplines Whiteboard Updated in Patient Room with Yes name and ext. 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
[2020-02-03] MEDS: SODIUM CHLORIDE 0.9% FLUSH 10 ML IV (15:41)
[2020-02-03] MEDS: TRAMADOL 50 MG TABLET PO (17:29)
[2020-02-03] MEDS: MAGNESIUM HYDROXIDE 30 ML UDC PO (17:42)
[2020-02-03] MEDS: SIMVASTATIN 40 MG TABLET 20 MG PO (20:23)
[2020-02-03] MEDS: ACETAMINOPHEN 325 MG TABLET 650 MG PO (20:30)
[2020-02-04 00:15] VITALS: O2SAT 94
[2020-02-04 00:30] VITALS: BP 118/58; PULSE 68; RESP 20; TEMP 36.5; O2SAT 94
[2020-02-04] MEDS: TRAMADOL 50 MG TABLET PO (04:46)
[2020-02-04] MEDS: ACETAMINOPHEN 325 MG TABLET 650 MG PO (04:50)
[2020-02-04] MEDS: CYCLOBENZAPRINE 10 MG TABLET PO (04:54)
[2020-02-04] MEDS: MAGNESIUM HYDROXIDE 30 ML UDC PO (06:36)
[2020-02-04 07:00] VITALS: O2SAT 96
[2020-02-04 08:00] VITALS: BP 121/72; PULSE 72; RESP 18; TEMP 37.1; O2SAT 93
--- NOTE | 2020-02-04 08:07 | P.DS_ITS ---
History of Present Illness History of Present Illness Date Patient Seen: 02/03/20 Chief complaint: rt knee pain, twisted it Narrative: Written by Priyanka PRATT: Tramaine Medeiros is a active 79-year-old male with a history of atrial fibrillation, congestive heart failure, history of acute respiratory failure, pulmonary hypertension, osteoarthritis of the right knee with a past history of hemarthrosis involving the right knee joint presents today after having worked with physical therapy and re-injuring his right knee. He is anticoagulated on warfarin. He was seen by orthopedic surgery who agreed that he may need to have his knee drained and would like him placed in observation and his INR reversed so that it can be closer to 1.8 prior to them tapping his knee joint. Today his INR is 2.6. He denies losing consciousness, he states he was just finished working with physical therapy and was walking on uneven pavement when he turned and twisted his knee. X-ray of the right knee indicated Large persistent joint effusion expanding the patellofemoral compartment where osseous remodeling and marginal spur formation is present. Patient stated that he sees Dr. Andersen for his knee problems, stated that this is the 5th time he has injured this knee resulting in a hemarthrosis and at this point states that he feels that he is going to eventually need surgery on this knee. Patient denies syncope, shortness of breath, chest pain, dysuria, nausea vomiting, abdominal pain, diarrhea or constipation. Patient was afebrile with a temperature of 97.9, blood pressure 127/68, heart rate 77, respiratory rate 20, oxygen saturation of 95% on room air, his weight is 79.3 kilos with a BMI of 30.9. Discharge Providers Provider Date of admission: 02/03/20 02:34 Discharge Date: 02/04/20 Primary care physician: Barrera Roth MD Consults: 02/03/20 04:14 Consult to Physician Routine Comment: Consulting Provider: Burt Simmons Reason for consultation: drain right knee Has provider been notified: Yes 02/03/20 08:44 Consult to Occupational Therapy Evaluate & Treat Comment: Physician Instructions: Evaluate and treat Consult to Physical Therapy Evaluate & Treat Comment: Physician Instructions: Evaluate and Treat 02/03/20 13:21 Consult to Home Health Routine Comment: [facility] HAS THE REFERRAL Reason For Exam: RESUME TONI RN/PT AND ADD OT Discharge provider: Josy Dumont DO Summary Hospital Course Discharge Diagnosis: 1. Acute right knee hemarthrosis, secondary to twisting motion and anticoagulation, present on admission. Resolving. 2. Atrial fibrillation, chronic, present on admission. Stable. 3. CAD, chronic present on admission. Stable. 4. Congestive heart failure, unknown type, chronic, present on admission. Stable. 5. BPH, chronic, present on admission. Stable. 6. Chronic iron deficiency anemia and acute blood loss, present on admission. Stable. 7. Chronic IBD, present on admission. Stable. Hospital Course: Tramaine Medeiros is an 79-year-old male with a history of chronic atrial fibrillation, congestive heart failure, osteoarthritis of the right knee with a past history of hemarthrosis involving the right knee joint who presented to ED after having worked with physical therapy and re-injuring his right knee. 1. Acute right knee hemarthrosis, secondary to twisting motion and anticoagulation, present on admission. Resolving. -Patient presented with right knee swelling and hemarthrosis after losing his ba shakila and sustaining a twisting motion without fall to right knee while working with physical therapy. This is the patient's 5th episode of hemarthrosis of right knee. -Initial INR 2.6 and trended down to 2.5. Warfarin was held until discharge then resumed per ortho and he received a oral dose of vitamin K 5 mg in the ED. -Consulted orthopedic surgery, Dr. Simmons, who performed joint aspiration. Continued to mobilize with physical therapy and keep MICHOACANO wrap in place. -Continued pain control with oxycodone and acetaminophen. 2. Atrial fibrillation, chronic, present on admission. Stable. -Continued to monitor closely on telemetry -Held warfarin until time discharge and then may restart if no further bleeding per ortho. -INR 2.5. Continued to monitor. Recommended continued monitoring at Coumadin clinic and consider switching Eliquis as lower risk of bleeding and will defer to PCP. 3. CAD, chronic present on admission. Stable. -Continued home carvedilol 12.5 mg daily and eplerenone 25 mg daily. Held aspirin until time of discharge. 4. Congestive heart failure, unknown type, chronic, present on admission. Stable. -Does not represent CHF exacerbation. -Continued home carvedilol 12.5 mg daily, eplerenone 25 mg daily,furosemide 80 mg in the morning and 40 mg in the evening. 5. BPH, chronic, present on admission. Stable. -Continued home of finasteride 5 mg daily. 6. Chronic iron deficiency anemia and acute blood loss, present on admission. Stable. -Hemoglobin 9.0 near baseline but baseline has been trending down slowly over last 3-6 months. -Continued home ferrous sulfate 325 mg twice daily. 7. Chronic IBD, present on admission. Stable. -Continued Pentasa 1000 mg twice daily. Exam Vital Signs (past 8 hours): - 02/04/20 00:15 02/04/20 00:30 Temperature 97.7 F Pulse Rate 68 Respiratory Rate 20 Blood Pressure 118/58 L Pulse Oximetry 94 94 Oxygen Delivery Method Room Air Oxygen Flow Rate 0 Narrative Exam Narrative: General: Elderly gentleman standing in room and in no acute distress, well- developed, well-nourished, appropriately interactive. HEENT: Normocephalic, atraumatic. External ears without defect. Pupils equal, round, and reactive to light. Anicteric sclerae, moist conjunctivae, and no lid lag. Oropharynx free of erythema and cobble stoning with moist mucosa. Neck: Supple with full range of motion. No jugular venous distension. No bruits. No lymphadenopathy or thyromegaly. Cardiovascular: Irregularly irregular without murmurs, rubs, or gallops appreciated. Pulmonary: Clear to auscultation bilaterally without crackles, wheezes, or rhonchi. Normal respiratory effort with no use of accessory muscles. Abdomen: Soft, bowel sounds present, nontender, nondistended. No hepatosplenomegaly or masses appreciated. Extremities: No clubbing, cyanosis, or edema of all other extremities. Left knee with MICHOACANO wrap in place with mild swelling underneath. Skin: Normal temperature, turgor, and texture; no rash, ulcers, or subcutaneous nodules appreciated. Neurological: Cranial nerves grossly intact. Psychiatric: Normal mood and affect. Alert and oriented to person, place, and time. Objective Labs Result Diagrams: 02/03/20 04:39 02/03/20 04:39 Discharge Plan Discharge Plan Patient Disposition: Home Health Service Transfer to: [facility] Discharge comment: You are being discharged home to resume home health for physical therapy and nursing. You twisted your right knee which cause bleeding into the knee joint. Dr. [place] of orthopedic surgery aspirated your right knee and removed some of the blood. Please continue wearing your MICHOACANO wrap for the next 1 week to help with mobilization and decrease chance of rebleeding. You may continue your medications as previously prescribed. Please follow-up with your primary care physician, Dr. Roth, regarding your hospitalization and continued monitoring of your warfarin. You may want to consider switching your blood thinner to Eliquis as this has a low risk of bleeding and you may discuss this with your primary care physician. Discharge orders & Medications Prescriptions: Continued albuterol sulfate [Proventil HFA] 90 MCG/PUFF HFA aerosol inhaler 2 puff INH PRN PRN (Reason: Shortness Of Breath) Qty: 0 RF: 0 Pentasa 500 MG capsule, extended release 1,000 mg PO BID Qty: 0 RF: 0 calcium carbonate-vitamin D3 500-100 mg-unit Tablet,Chewable 3 tab PO DAILY Qty: 0 RF: 0 furosemide 40 MG tablet 80 mg PO DAILY RF: 0 cyclobenzaprine 10 mg Tablet 10 mg PO PRN PRN (Reason: Spasms) RF: 0 furosemide 40 mg Tablet 40 mg PO QPM RF: 0 carvedilol 25 mg Tablet 12.5 mg PO DAILY RF: 0 tramadol 50 mg Tablet 50 mg PO Q6H RF: 0 simvastatin 40 mg Tablet 20 mg PO BID RF: 0 ferrous sulfate 325 mg (65 mg iron) Tablet 325 mg PO BID RF: 0 ascorbic acid (vitamin C) 500 mg Tablet,Chewable 500 mg PO DAILY RF: 0 nitroglycerin [Nitrostat] 0.4 mg Tablet, Sublingual 0.4 mg SUBLINGUAL Q5-15M PRN (Reason: Chest Pain) RF: 0 folic acid 1 mg Tablet 1 mg PO DAILY RF: 0 finasteride 5 mg Tablet 5 mg PO DAILY RF: 0 loratadine 10 mg Tablet 10 mg PO DAILY RF: 0 sodium fluoride-pot nitrate 1.1-5 % Paste 1 applic Dental QPM RF: 0 omeprazole 20 mg Tablet,Delayed Release (Dr/Ec) 20 mg PO DAILY RF: 0 cholecalciferol (vitamin D3) [Vitamin D3] 2,000 unit Capsule 2,000 unit PO DIRECTED RF: 0 potassium chloride 20 mEq Tablet Extended Release 20 meq PO DAILY RF: 0 aspirin 81 MG tablet,delayed release (DR/EC) 81 mg PO DAILY RF: 0 eplerenone 25 mg Tablet 25 mg PO DAILY RF: 0 oxycodone-acetaminophen [Percocet] 5-325 mg tablet 2 tab PO Q6H PRN (Reason: acute knee pain/effusion) Qty: 10 RF: 0 warfarin 5 mg tablet See Rx Instructions .ROUTE .COMPLEX Qty: 0 RF: 0 warfarin 5 mg tablet See Rx Instructions .ROUTE .COMPLEX Qty: 0 RF: 0 tramadol 50 mg tablet 50 mg PO TID PRN (Reason: pain) Qty: 30 RF: 0 Follow up/Referrals: Barrera Roth MD [Primary Care Provider] - 1 Week (*Appt on Feb with @ 10am check-in time. [place] [facility] [phone] * out of office*) Diet/Activity/Treatments Diet: Diet as Tolerated, Low-fat, Low-sodium and Low-cholesterol Activity: Activity as tolerated with your cane/FWW and physical therapy Visit Report/Discharge Packet Instructions: DI for Hemarthrosis Visit Report Forms: Patient Portal/API, Stroke Signs & Symptoms Discharge Data Primary Care Provider: Barrera Roth V Attending Provider: Priyanka Nunez Admit Date/Time: 02/03/20 02:34 Discharges patient from system. Discharge Date/Time: 02/04/20 10:00
[2020-02-04] MEDS: FERROUS SULFATE 325 MG TABLET PO (08:30)
[2020-02-04] MEDS: carvediloL 25 MG TABLET 12.5 MG PO (08:30)
[2020-02-04] MEDS: FINASTERIDE 5 MG TABLET PO (08:30)
[2020-02-04] MEDS: MESALAMINE 250 MG CAPSULE.ER 1000 MG PO (08:31)
[2020-02-04] MEDS: PANTOPRAZOLE 20 MG TABLET PO (08:31)
[2020-02-04] MEDS: EPLERENONE 25 MG TABLET PO (08:31)
--- NOTE | 2020-02-04 08:39 | PC.NURSE ---
Addendum entered by Yulissa Mojica R.N. 02/04/20 11:15: Pt d/c to private vehicle. Daughter to cook pickled meat, all instructions for follow up care reviewed and verbalized understanding. Original Note: Am shift Pt is up ambulating to BR with minimal c/o pain. MICHOACANO wrap to RLE. No bleeding noted. Pt is up and hoping to d/c home this AM. CMS+ BLE, 2 canes in use for trips to BR with Contact gaurd assist. No c/o at present.
--- NOTE | 2020-02-04 10:07 | CM.DPC ---
DCP: continued: pt left for home this morning before Team Rounds was completed. Called [facility] and confirmed the d/c for today. CMsp Nuris will fax the dc summary to [facility] when it has been finalized.
--- NOTE | 2020-02-04 10:18 | PT-IP ANOTE ---
Patient in process of DC upon arrival of FIELD COUNSEL therefore no treatment this day
== END 2020-02-04 10:00 | disposition home health service (06) ==
LOC: ED 02-03 02:14 → ICU 02-03 02:36
PROVIDERS: Admitting Provider Nurse Practitioner Family; Emergency Provider Emergency Medicine; PCP Internal Medicine; Referring Provider Orthopaedic Surgery; Visit Provider Nurse Practitioner Family
DX: M25.061 Hemarthrosis, right knee (principal); X50.1XXA Overexertion from prolonged static or awkward postures, initial encounter; M17.11 Unilateral primary osteoarthritis, right knee; Z79.01 Long term (current) use of anticoagulants; K21.9 Gastro-esophageal reflux disease without esophagitis; E78.5 Hyperlipidemia, unspecified; I48.20 Chronic atrial fibrillation, unspecified; I50.9 Heart failure, unspecified; I25.10 Atherosclerotic heart disease of native coronary artery without angina pectoris; N40.0 Benign prostatic hyperplasia without lower urinary tract symptoms; D64.9 Anemia, unspecified; Z11.59 Encounter for screening for other viral diseases
CPT/HCPCS: 20610; 36415; 73562; 80048; 85025; 85610; 87635; 87797; 96374; 97162; 99284; G0378; J3430

== ENCOUNTER 2021-01-28 10:50 | Emergency (ER) | payer MEDICARE, OTHER, SELFPAY ==
[2020-02-03 03:16] VITALS: BMI 30.9
[2021-01-28 11:06] VITALS: BP 149/80; PULSE 74; RESP 12; TEMP 36.5; O2SAT 94; BMI 30.7
--- NOTE | 2021-01-28 11:07 | ED_ITS ---
HPI - SOB/Dyspnea General Chief Complaint: Shortness of Breath/Dyspnea Stated Complaint: bronchitis, SOB, cough Time Seen by Provider: 01/28/21 11:04 History of Present Illness HPI Narrative: Patient is a 80-year-old male with history of atrial fibrillation on Coumadin presenting today with increasing shortness of breath. He says it has been ongoing for the past 3 weeks but may be worse over last 2-3 days. He denies any fever or chills no cough. He has ongoing lower extremity edema for which he is wearing his compression socks, which he says he always wears them. He is unsure if his legs are any more swollen. He did have some difficulty breathing at night he said that he is headed to fold his pillow up and make it higher so he could breathe. He denies any chest pain or palpitations. Related Data Home Medications Medication Instructions Recorded Confirmed albuterol sulfate 90 mcg/actuation 2 puff INH PRN PRN #0 03/22/17 02/03/20 aerosol inhaler (Proventil HFA) mesalamine 500 mg 1,000 mg PO BID #0 03/24/17 02/03/20 capsule,controlled release (Pentasa) calcium carbonate-vitamin D3 500 3 tab PO DAILY #0 03/31/17 02/03/20 mg-100 unit chewable tablet ascorbic acid (vitamin C) 500 mg 500 mg PO DAILY 05/18/18 02/03/20 chewable tablet aspirin 81 mg tablet,delayed 81 mg PO DAILY 05/18/18 02/03/20 release carvedilol 25 mg tablet 12.5 mg PO DAILY 05/18/18 02/03/20 cholecalciferol (vitamin D3) 50 2,000 unit PO DIRECTED 05/18/18 02/03/20 mcg (2,000 unit) capsule (Vitamin D3) cyclobenzaprine 10 mg tablet 10 mg PO PRN PRN 05/18/18 02/03/20 eplerenone 25 mg tablet 25 mg PO DAILY 05/18/18 02/03/20 ferrous sulfate 325 mg (65 mg 325 mg PO BID 05/18/18 02/03/20 iron) tablet finasteride 5 mg tablet 5 mg PO DAILY 05/18/18 02/03/20 folic acid 1 mg tablet 1 mg PO DAILY 05/18/18 02/03/20 furosemide 40 mg tablet 40 mg PO QPM 05/18/18 02/03/20 furosemide 40 mg tablet 80 mg PO DAILY 05/18/18 02/03/20 loratadine 10 mg tablet 10 mg PO DAILY 05/18/18 02/03/20 nitroglycerin 0.4 mg sublingual 0.4 mg SUBLINGUAL Q5-15M PRN 05/18/18 02/03/20 tablet (Nitrostat) omeprazole 20 mg tablet,delayed 20 mg PO DAILY 05/18/18 02/03/20 release potassium chloride 20 mEq 20 meq PO DAILY 05/18/18 02/03/20 tablet,extended release simvastatin 40 mg tablet 20 mg PO BID 05/18/18 02/03/20 sodium fluoride 1.1 %-potassium 1 applic DENTAL QPM 05/18/18 02/03/20 nitrate 5 % dental paste tramadol 50 mg tablet 50 mg PO Q6H 05/18/18 02/03/20 Previous Rx's Medication Instructions Recorded oxycodone-acetaminophen 5 mg-325 2 tab PO Q6H PRN #10 tab 05/27/18 mg tablet (Percocet) tramadol 50 mg tablet 50 mg PO TID PRN #30 tab 01/05/20 warfarin 5 mg tablet See Rx Instructions .ROUTE 01/05/20 .COMPLEX #0 tab warfarin 5 mg tablet See Rx Instructions .ROUTE 01/05/20 .COMPLEX #0 tab Allergies Allergy/AdvReac Type Severity Reaction Status Date / Time ibuprofen Allergy Mild NOT GOOD Verified 02/02/20 19:38 FOR STOMACH BLEEDING iodine Allergy Mild UNKNOWN Verified 02/02/20 19:38 Sulfa (Sulfonamide Allergy Mild BURNED A Verified 02/02/20 19:38 Antibiotics) HOLE THRU INTESTINES thallium-201 Allergy Mild BREAKS OUT Verified 02/02/20 19:38 IN BLOTCHES AND ITCHING terazosin Allergy Hypotension Verified 02/02/20 19:38 spironolactone AdvReac Verified 02/02/20 19:38 Review of Systems Review of Systems Narrative: GENERAL: Denies chills, fatigue, malaise, fever, sweats, travel HEENT: Denies sinus pain, ear pain, sore throat, difficulty swallowing, neck pain RESPIRATORY: Increasing shortness of breath with exertion CARDIOVASCULAR: See HPI GASTROINTESTINAL: Denies nausea, vomiting, abdominal pain, diarrhea, constipation, melena. : Denies dysuria, frequency, incontinence, hematuria, urinary retention, flank pain. MUSCULOSKELETAL: + lower extremity edema Denies weakness, joint pain, or bony pain SKIN: No rash, no erythema, no pruritus NEUROLOGIC: Denies weakness, dizziness, headache, numbness, change in speech, confusion PSYCHIATRIC: No concerning psychosocial issues. 12 point review of systems is negative except for those stated above and HPI Patient History Medical History (Updated 01/28/21 @ 13:18 by Angeles Tyler DO) Asthma Atrial fibrillation CHF (congestive heart failure) Hemarthrosis involving knee joint Osteoarthritis Pulmonary hypertension Surgical History H/O mitral valve replacement Family History Mother Congestive heart failure Father Coronary artery disease Social History (Updated 02/03/20 @ 03:39 by SANTA Holder) household members: spouse Smoking Status: Never smoker substance use type: does not use Type(s) of exercise: walking frequency: daily Smoking Status: Never smoker alcohol intake frequency: holidays/special occasions only Substance Use Type: does not use Exam Initial Vital Signs Initial Vital Signs: Vital Signs Temperature 97.7 F 01/28/21 11:06 Pulse Rate 74 01/28/21 11:06 Respiratory Rate 12 01/28/21 11:06 Blood Pressure 149/80 H 01/28/21 11:06 Pulse Oximetry 94 01/28/21 11:06 GENERAL: Alert 80-year-old gentleman no acute distress HEENT: Head atraumatic,EOMI, pupils reactive, face symmetric, [moist] mucous membranes CARDIOVASCULAR: Regular rate and rhythm without murmurs, rubs or gallops. RESPIRATORY: Breath sounds equal bilaterally no respiratory distress speaks in full sentences no wheezes rales or rhonchi ABDOMEN: Soft, nontender. Normoactive bowel sounds all 4 quadrants. No guarding or rebound. EXTREMITIES: Normal range of motion, no clubbing or edema. Neurovascularly intact NEUROLOGICAL: Alert and oriented x4.Normal gait and speech. SKIN: Warm, dry, no laceration, no petechiae, no rashes or lesions. Course Orders Ordered: ED Orders 01/28/21 11:13 EKG-12 Lead Stat 01/28/21 11:14 XR chest 1V Stat 01/28/21 11:15 Complete Blood Count AUTO DIFF Stat Comprehensive Metabolic Panel Stat Magnesium Stat NT-proBNP (BNP-Adult 18+) Stat Partial Thromboplastin Time Stat Prothrombin Time INR Stat Troponin & CK Cardiac Panel Stat 01/28/21 12:20 Urine Culture Stat Urine Microscopic Stat Discontinued Medications Furosemide (Furosemide 100 Mg/10 Ml Vial) 80 mg IV NOW ONE Stop: 01/28/21 12:15 Last Admin: 01/28/21 12:33 Dose: 80 mg Documented by: JOSE Vital Signs Vital signs: Vital Signs - 8 hr 01/28/21 11:06 01/28/21 13:00 01/28/21 13:05 Temperature 97.7 F Pulse Rate 74 67 Respiratory Rate 12 18 Blood Pressure 149/80 H 149/80 H Pulse Oximetry 94 94 95 01/28/21 13:32 Temperature Pulse Rate 62 Respiratory Rate 18 Blood Pressure 171/80 H Pulse Oximetry 97 MDM - SOB/Dyspnea Lab Data Result diagrams: 01/28/21 11:15 01/28/21 11:15 Labs: Lab Results 01/28/21 01/28/21 01/28/21 Range/Units 11:15 11:15 11:15 WBC 4.0 L (4.5-11.0) X10^3/uL RBC 3.65 L (4.5-5.9) X10^6/uL Hgb 10.4 L (13.5-17.5) g/dL Hct 32.2 L (41-53) % MCV 88.2 (80-100) fL MCH 28.4 (26-34) PG MCHC 32.3 (30-36) % RDW 16.0 H (11.6-14.8) % Plt Count 115 L (150-400) X10^3/uL Neut % (Auto) 74.9 (50-75) % Lymph % (Auto) 12.9 L (25-40) % [place] % (Auto) 11.2 (3-14) % Eos % (Auto) 0.5 L (2-4) % Baso % (Auto) 0.5 (0-2) % Neut # (Auto) 3000 (5544-5128) /uL Lymph # (Auto) 500 L (7763-6694) /uL [place] # (Auto) 400 (0-900) /uL Eos # (Auto) 0 (0-450) /uL Baso # (Auto) 0 (0-100) /uL PT 59.1 H (10.1-12.7) SECONDS INR 5.0 H* (0.9-1.3) APTT 51 H (26.4-36.2) SECONDS Sodium (137-145) mmol/L Potassium (3.4-5.1) mmol/L Chloride (98-107) mmol/L Carbon Dioxide (22-32) mmol/L BUN (9-20) mg/dL Creatinine (0.66-1.25) mg/dL Estimated GFR (>60) mL/min BUN/Creatinine Ratio (6-22) Glucose (80-110) mg/dL Calcium (8.4-10.2) mg/dL Magnesium 2.0 (1.6-2.3) mg/dL Total Bilirubin (0.2-1.3) mg/dL AST (17-59) IU/L ALT (<50) IU/L Alkaline Phosphatase (38-126) U/L Total Creatine Kinase 42 L (55-170) U/L CK-MB (CK-2) TNP CK-MB (CK-2) Rel Index TNP Troponin I < 0.012 (0.01-0.034) ng/mL NT-Pro-B Natriuret Pep 3290 H (<450) pg/mL Total Protein (6.3-8.2) g/dL Albumin (3.5-5.0) g/dL Globulin (1.7-4.1) g/dL Albumin/Globulin Ratio (1.0-2.8) Urine RBC (0-5/HPF) Urine WBC (0-5/HPF) Ur Squamous Epith Cells (0-5/HPF) Urine Bacteria (None) Hyaline Casts (None) Ur Culture Indicated? 01/28/21 01/28/21 Range/Units 11:15 12:20 WBC (4.5-11.0) X10^3/uL RBC (4.5-5.9) X10^6/uL Hgb (13.5-17.5) g/dL Hct (41-53) % MCV (80-100) fL MCH (26-34) PG MCHC (30-36) % RDW (11.6-14.8) % Plt Count (150-400) X10^3/uL Neut % (Auto) (50-75) % Lymph % (Auto) (25-40) % [place] % (Auto) (3-14) % Eos % (Auto) (2-4) % Baso % (Auto) (0-2) % Neut # (Auto) (4409-5495) /uL Lymph # (Auto) (7953-4538) /uL [place] # (Auto) (0-900) /uL Eos # (Auto) (0-450) /uL Baso # (Auto) (0-100) /uL PT (10.1-12.7) SECONDS INR (0.9-1.3) APTT (26.4-36.2) SECONDS Sodium 138 (137-145) mmol/L Potassium 4.0 (3.4-5.1) mmol/L Chloride 100 (98-107) mmol/L Carbon Dioxide 35 H (22-32) mmol/L BUN 12 (9-20) mg/dL Creatinine 0.58 L (0.66-1.25) mg/dL Estimated GFR > 60.0 (>60) mL/min BUN/Creatinine Ratio 20.7 (6-22) Glucose 104 (80-110) mg/dL Calcium 9.0 (8.4-10.2) mg/dL Magnesium (1.6-2.3) mg/dL Total Bilirubin 0.6 (0.2-1.3) mg/dL AST 31 (17-59) IU/L ALT 21 (<50) IU/L Alkaline Phosphatase 62 (38-126) U/L Total Creatine Kinase (55-170) U/L CK-MB (CK-2) CK-MB (CK-2) Rel Index Troponin I (0.01-0.034) ng/mL NT-Pro-B Natriuret Pep (<450) pg/mL Total Protein 6.1 L (6.3-8.2) g/dL Albumin 3.6 (3.5-5.0) g/dL Globulin 2.5 (1.7-4.1) g/dL Albumin/Globulin Ratio 1.4 (1.0-2.8) Urine RBC 0-1/hpf (0-5/HPF) Urine WBC 0-1/hpf (0-5/HPF) Ur Squamous Epith Cells 0-1 /hpf (0-5/HPF) Urine Bacteria None seen (None) Hyaline Casts 1-5/lpf (None) Ur Culture Indicated? Cult not indicated Urine Dip Bedside Urine Glucose Negative Bedside Urine Bilirubin - Negative Bedside Urine Ketone +/- 5 Urine Specific [place] 1.025 Bedside Urine Occult Blood - Negative Bedside Urine pH 6.0 Bedside Urine Protein + 30 Bedside Urine Urobilinogen - Negative Bedside Urine Nitrite - Negative Bedside Urine Leukocytes - Negative Esterase Imaging Data Chest x-ray: Radiologist's Impression: PROCEDURE: XR CHEST 1V INDICATIONS: short of breath TECHNIQUE: One view of the chest was acquired. COMPARISON: [facility], CT, CT ABDOMEN PELVIS W CON, 01/04/2020, 18:09. [facility], CR, CHEST 2 VIEW, 04/21/2017, 13:40. [facility], CR, XR CHEST 1 VIEW, 06/14/2018, 19:15. FINDINGS: Surgical changes and devices: Sternotomy wires are seen. There is a mitral valve prosthesis. Lungs and pleura: On this semiupright portable chest examination, no large pneumothorax or large pleural effusions are seen. No focal infiltrates are seen. Mediastinum: The cardiac contours are mildly enlarged. The aorta demonstrates calcification and tortuosity. Bones and chest wall: No suspicious bony lesions. Age-appropriate bony degenerative changes are seen. Overlying soft tissues appear unremarkable. IMPRESSION: Clear lungs. Mild cardiomegaly. Postoperative and degenerative changes are seen. Dictated by: Tejinder Clement M.D. on 01/28/2021 at 11:11 ECG Data Interpretation: Junctional rhythm PVC noted rate 64, QRS complex is due September out no definitive P-wave difficult to tell there is some artifact. This is similar to previous EKG in 2019. There is mild ST depression in 2 QRS complex in lead 2 only. Thought to be artifact at this time. MDM Narrative Medical decision making narrative: Patient is here for increased difficulty breathing. He has elevated BNP lower extremity edema. He is on Lasix 80 mg in the morning and 40 mg at night. He has no chest pain no syncopal episodes no palpitations. Previous history of atrial fibrillation on Coumadin. INRs also found be elevated at 5.0 with no active bleeding at this time. EKGs does look very similar to EKG in 2019. Troponin is negative. At this time patient's symptoms are most consistent with congestive heart failure is in fluid overload. He was given 1 dose of Lasix in the emergency department he urinated at least 3 times. He ambulated without any difficulty and oxygen remained stable. Had this time does not meet admission criteria can be diuresed as an outpatient. He is instructed to hold his Coumadin due to elevated INR and have it recheck before restarting it. Discharge Plan Departure Patient Disposition: Home Clinical Impression: CHF (congestive heart failure) Instructions: DI for Heart Failure Activity Restrictions/Additional Instructions: *You have been diagnosed with congestive heart failure *What to do: At this time he of increased fluid which is causing her difficulty breathing. *Continue to take medications as directed Increase furosemide to 80 mg twice a day for 3 days then resume your normal dose of 80 mg in the morning and 40 mg at night HOLD COUMADIN FOR 2DAYS AND HAVE INR RECHECKED IN 2 DAYS BEFORE STARTING IT AGAIN *Follow up with your primary care provider in 2-3 days *Return to ER if you should have increasing shortness of breath, palpitations, swelling, chest pain or any new, worsening or concerning symptoms Prescriptions: No Action albuterol sulfate [Proventil HFA] 90 MCG/PUFF HFA aerosol inhaler 2 puff INH PRN PRN (Reason: Shortness Of Breath) Qty: 0 RF: 0 Pentasa 500 MG capsule, extended release 1,000 mg PO BID Qty: 0 RF: 0 calcium carbonate-vitamin D3 500-100 mg-unit Tablet,Chewable 3 tab PO DAILY Qty: 0 RF: 0 furosemide 40 MG tablet 80 mg PO DAILY RF: 0 cyclobenzaprine 10 mg Tablet 10 mg PO PRN PRN (Reason: Spasms) RF: 0 furosemide 40 mg Tablet 40 mg PO QPM RF: 0 carvedilol 25 mg Tablet 12.5 mg PO DAILY RF: 0 tramadol 50 mg Tablet 50 mg PO Q6H RF: 0 simvastatin 40 mg Tablet 20 mg PO BID RF: 0 ferrous sulfate 325 mg (65 mg iron) Tablet 325 mg PO BID RF: 0 ascorbic acid (vitamin C) 500 mg Tablet,Chewable 500 mg PO DAILY RF: 0 nitroglycerin [Nitrostat] 0.4 mg Tablet, Sublingual 0.4 mg SUBLINGUAL Q5-15M PRN (Reason: Chest Pain) RF: 0 folic acid 1 mg Tablet 1 mg PO DAILY RF: 0 finasteride 5 mg Tablet 5 mg PO DAILY RF: 0 loratadine 10 mg Tablet 10 mg PO DAILY RF: 0 sodium fluoride-pot nitrate 1.1-5 % Paste 1 applic Dental QPM RF: 0 omeprazole 20 mg Tablet,Delayed Release (Dr/Ec) 20 mg PO DAILY RF: 0 cholecalciferol (vitamin D3) [Vitamin D3] 2,000 unit Capsule 2,000 unit PO DIRECTED RF: 0 potassium chloride 20 mEq Tablet Extended Release 20 meq PO DAILY RF: 0 aspirin 81 MG tablet,delayed release (DR/EC) 81 mg PO DAILY RF: 0 eplerenone 25 mg Tablet 25 mg PO DAILY RF: 0 oxycodone-acetaminophen [Percocet] 5-325 mg tablet 2 tab PO Q6H PRN (Reason: acute knee pain/effusion) Qty: 10 RF: 0 warfarin 5 mg tablet See Rx Instructions .ROUTE .COMPLEX Qty: 0 RF: 0 warfarin 5 mg tablet See Rx Instructions .ROUTE .COMPLEX Qty: 0 RF: 0 tramadol 50 mg tablet 50 mg PO TID PRN (Reason: pain) Qty: 30 RF: 0 Referrals: Barrera Roth MD [Primary Care Provider] -
--- NOTE | 2021-01-28 11:14 | DI.RAD.S_ITS ---
PROCEDURE: XR CHEST 1V INDICATIONS: short of breath TECHNIQUE: One view of the chest was acquired. COMPARISON: [facility], CT, CT ABDOMEN PELVIS W CON, 01/04/2020, 18:09. [facility], CR, CHEST 2 VIEW, 04/21/2017, 13:40. [facility], CR, XR CHEST 1 VIEW, 06/14/2018, 19:15. FINDINGS: Surgical changes and devices: Sternotomy wires are seen. There is a mitral valve prosthesis. Lungs and pleura: On this semiupright portable chest examination, no large pneumothorax or large pleural effusions are seen. No focal infiltrates are seen. Mediastinum: The cardiac contours are mildly enlarged. The aorta demonstrates calcification and tortuosity. Bones and chest wall: No suspicious bony lesions. Age-appropriate bony degenerative changes are seen. Overlying soft tissues appear unremarkable. IMPRESSION: Clear lungs. Mild cardiomegaly. Postoperative and degenerative changes are seen. Dictated by: Tejinder Clement M.D. on 01/28/2021 at 11:11 Approved by: Tejinder Clement M.D. on 01/28/2021 at 11:12
[2021-01-28 11:40] LABS: Add Manual Diff / Slide Review NO; Basophils Absolute Auto 0 /uL (0-100); Basophils Percent Auto 0.5 % (0-2); Eosinophils Absolute Auto 0 /uL (0-450); Eosinophils Percent Auto 0.5 % (2-4); Hematocrit 32.2 % (41-53); Hemoglobin 10.4 g/dL (13.5-17.5); Lymphocytes Absolute Auto 500 /uL (1100-4500); Lymphocytes Percent Auto 12.9 % (25-40); Mean Corpuscular HGB Conc 32.3 % (30-36); Mean Corpuscular Hemoglobin 28.4 PG (26-34); Mean Corpuscular Volume 88.2 fL (80-100); Monocytes Absolute Auto 400 /uL (0-900); Monocytes Percent Auto 11.2 % (3-14); Neutrophils Absolute Auto 3000 /uL (1500-7000); Neutrophils Percent Auto 74.9 % (50-75); Platelet Count 115 X10^3/uL (150-400); Red Blood Cell Count 3.65 X10^6/uL (4.5-5.9)
[2021-01-28 11:46] LABS: PTT Partial Thromboplastin Tim 51 SECONDS (26.4-36.2)
[2021-01-28 11:48] LABS: Creatine Kinase 42 U/L (55-170); Prothrombin Time 59.1 SECONDS (10.1-12.7)
[2021-01-28 11:49] LABS: Alanine Aminotransferase 21 IU/L (<50); Albumin 3.6 g/dL (3.5-5.0); Albumin Globulin Ratio 1.4 (1.0-2.8); Alkaline Phosphatase 62 U/L (38-126); Aspartate Aminotransferase 31 IU/L (17-59); BUN Creatinine Ratio 20.7 (6-22); Bilirubin Total 0.6 mg/dL (0.2-1.3); Blood Urea Nitrogen 12 mg/dL (9-20); Carbon Dioxide 35 mmol/L (22-32); Chloride 100 mmol/L (98-107); Estimated Glomerular Filt Rate > 60.0 mL/min (>60); Globulin 2.5 g/dL (1.7-4.1); Glucose 104 mg/dL (80-110); HEMOLYSIS < 15 (0-50); Sodium 138 mmol/L (137-145); Total Protein 6.1 g/dL (6.3-8.2)
[2021-01-28 12:00] LABS: NT-proBNP (BNP-Adult 18+) 3290 pg/mL (<450); Troponin I < 0.012 ng/mL (0.01-0.034)
[2021-01-28 12:32] LABS: Bacteria Urine None Seen
[2021-01-28] MEDS: FUROSEMIDE 100 MG/10 ML VIAL 80 MG IV (12:33)
[2021-01-28 13:00] VITALS: BP 149/80; PULSE 67; RESP 18; O2SAT 94
[2021-01-28 13:05] VITALS: O2SAT 95
[2021-01-28 13:17] LABS: Culture Indicated Urine Cult Not Indicated; Hyaline Casts Urine 1-5/LPF; RBC Urine 0-1/HPF (0-5/HPF); Squamous Epithelial Cell Urine 0-1 /HPF (0-5/HPF); WBC Urine 0-1/HPF (0-5/HPF)
[2021-01-28 13:32] VITALS: BP 171/80; PULSE 62; RESP 18; O2SAT 97
== END 2021-01-28 13:34 | disposition home or self-care (01) ==
PROVIDERS: Emergency Provider Emergency Medicine; PCP Internal Medicine
DX: I50.9 Heart failure, unspecified (principal); R60.0 Localized edema; R06.02 Shortness of breath; R79.89 Other specified abnormal findings of blood chemistry
CPT/HCPCS: 71045; 80053; 81003; 81015; 82550; 83735; 83880; 84484; 85025; 85610; 85730; 87086; 93005; 96374; 99284; J1940

== ENCOUNTER → 2022-02-07 15:56 | Outpatient (CLI) | payer MEDICARE, OTHER, SELFPAY ==
[2020-02-03 03:16] VITALS: BMI 30.9
[2022-02-07 16:45] LABS: Hematocrit 29.2 % (41-53); Hemoglobin 9.3 g/dL (13.5-17.5); Mean Corpuscular Volume 90.4 fL (80-100); Platelet Count 98 X10^3/uL (150-400); Red Blood Cell Count 3.22 X10^6/uL (4.5-5.9); Red Cell Distribution Width 16.7 % (11.6-14.8); White Blood Cell Count 2.9 X10^3/uL (4.5-11.0)
[2022-02-07 17:45] LABS: Alanine Aminotransferase 16 IU/L (<50); Albumin 3.7 g/dL (3.5-5.0); Albumin Globulin Ratio 1.8 (1.0-2.8); Alkaline Phosphatase 54 U/L (38-126); Aspartate Aminotransferase 30 IU/L (17-59); BUN Creatinine Ratio 21.7 (6-22); Bilirubin Total 0.6 mg/dL (0.2-1.3); Blood Urea Nitrogen 18 mg/dL (9-20); Calcium 8.5 mg/dL (8.4-10.2); Chloride 98 mmol/L (98-107); Estimated Glomerular Filt Rate > 60 mL/min (>60); Globulin 2.1 g/dL (1.7-4.1); Glucose 101 mg/dL (80-110); HEMOLYSIS < 15 (0-50); Potassium 3.2 mmol/L (3.4-5.1); Sodium 141 mmol/L (137-145); Total Protein 5.8 g/dL (6.3-8.2)
[2022-02-07 17:47] LABS: NT-proBNP (BNP-Adult 18+) 2810 pg/mL (<450)
[2022-02-07 17:51] LABS: Carbon Dioxide 38 mmol/L (22-32)
== END ==
PROVIDERS: PCP Internal Medicine; Referring Provider Internal Medicine; Visit Provider Internal Medicine
DX: I50.32 Chronic diastolic (congestive) heart failure (principal); N50.89 Other specified disorders of the male genital organs
CPT/HCPCS: 36415; 80053; 83880; 85027

== ENCOUNTER 2022-02-08 22:10 | Emergency (ER) | payer MEDICARE, OTHER, SELFPAY ==
[2020-02-03 03:16] VITALS: BMI 30.9
[2022-02-08 22:13] VITALS: BP 133/69; PULSE 86; RESP 19; TEMP 36.3; O2SAT 95; BMI 33.7
--- NOTE | 2022-02-08 22:23 | DI.RAD.S_ITS ---
PROCEDURE: XR CHEST 1V INDICATIONS: shortness of breath TECHNIQUE: One view of the chest was acquired. COMPARISON: [facility], CR, XR CHEST 1V, 01/28/2021, 11:47. FINDINGS: Surgical changes and devices: Postsurgical changes redemonstrated in the mediastinum including a prosthetic aortic valve Lungs and pleura: There are linear opacities in the right lung base likely representing atelectasis or scarring. No definite acute consolidation. No pleural effusions or pneumothorax. Mediastinum: Mediastinal contours appear unchanged. Heart size is enlarged. Bones and chest wall: No suspicious bony lesions. Overlying soft tissues appear unremarkable. IMPRESSION: 1. No definite acute cardiopulmonary disease. Dictated by: Zechariah Solis M.D. on 02/08/2022 at 23:37 Approved by: Zechariah Solis M.D. on 02/08/2022 at 23:38
--- NOTE | 2022-02-08 22:37 | PC.NURSE ---
pt recently started on metolazone states he has been retaining fluid since, denies any sob or cp states he is just swollen.
[2022-02-08 22:47] LABS: Add Manual Diff / Slide Review NO; Basophils Absolute Auto 0 /uL (0-100); Eosinophils Absolute Auto 100 /uL (0-450); Eosinophils Percent Auto 3.5 % (2-4); Hematocrit 30.5 % (41-53); Hemoglobin 9.7 g/dL (13.5-17.5); Lymphocytes Absolute Auto 700 /uL (1100-4500); Lymphocytes Percent Auto 19.4 % (25-40); Mean Corpuscular HGB Conc 31.9 % (30-36); Mean Corpuscular Hemoglobin 28.8 PG (26-34); Mean Corpuscular Volume 90.3 fL (80-100); Monocytes Absolute Auto 700 /uL (0-900); Monocytes Percent Auto 20.9 % (3-14); Neutrophils Absolute Auto 1900 /uL (1500-7000); Neutrophils Percent Auto 55.2 % (50-75); Platelet Count 109 X10^3/uL (150-400); Red Blood Cell Count 3.38 X10^6/uL (4.5-5.9); Red Cell Distribution Width 17.1 % (11.6-14.8); White Blood Cell Count 3.4 X10^3/uL (4.5-11.0)
[2022-02-08 22:49] LABS: INR 3.4 (0.9-1.3); Prothrombin Time 38.7 SECONDS (10.1-12.7)
[2022-02-08 22:54] LABS: Alanine Aminotransferase 17 IU/L (<50); Albumin 3.9 g/dL (3.5-5.0); Albumin Globulin Ratio 1.5 (1.0-2.8); Alkaline Phosphatase 62 U/L (38-126); Aspartate Aminotransferase 32 IU/L (17-59); BUN Creatinine Ratio 21.1 (6-22); Bilirubin Total 0.6 mg/dL (0.2-1.3); Blood Urea Nitrogen 16 mg/dL (9-20); Calcium 8.9 mg/dL (8.4-10.2); Carbon Dioxide 37 mmol/L (22-32); Chloride 95 mmol/L (98-107); Creatine Kinase 47 U/L (55-170); Estimated Glomerular Filt Rate > 60 mL/min (>60); Globulin 2.6 g/dL (1.7-4.1); Glucose 93 mg/dL (80-110); HEMOLYSIS < 15 (0-50); Potassium 3.5 mmol/L (3.4-5.1); Sodium 140 mmol/L (137-145); Total Protein 6.5 g/dL (6.3-8.2)
[2022-02-08 23:06] LABS: NT-proBNP (BNP-Adult 18+) 2510 pg/mL (<450); Troponin I < 0.012 ng/mL (0.01-0.034)
--- NOTE | 2022-02-08 23:06 | ED.WEAKNESS ---
HPI - Weakness General Chief complaint: Weakness Stated complaint: Leg swelling, Genital swelling, Edema Time Seen by Provider: 02/08/22 22:16 Source: patient Mode of arrival: Ambulatory History of Present Illness HPI Narrative: 81-year-old male nonsmoker with history of coronary artery disease, bypass, CHF presents with his son in the chief complaint of swelling in his lower extremities, shortness of breath with exertion though no worsening when lying flat for least the past few days. He is not dizzy nor weak or lightheaded. He denies any fever or chills and has no chest pain. He denies nausea, vomiting or diarrhea. He recently had metolazone added to his diuretic regimen, replacing epleronone. He took his 1st dose yesterday. He states that when ambulating he is feels short of breath but not significantly so and is able to walk upwards of 100 ft before coming short of breath, he states that he recovers rather quickly. He is had no runny nose, sore throat or cough. Related Data Home Medications Medication Instructions Recorded Confirmed albuterol sulfate 90 mcg/actuation 2 puff INH PRN PRN Shortness Of 03/22/17 02/07/22 aerosol inhaler (Proventil HFA) Breath ##0 mesalamine 500 mg capsule,extended 1,000 mg PO BID ##0 03/24/17 02/07/22 release (Pentasa) calcium carbonate 500 mg-vitamin 3 tab PO DAILY ##0 03/31/17 02/07/22 D3 2.5 mcg (100 unit) chewable tablet ascorbic acid (vitamin C) 500 mg 500 mg PO DAILY 05/18/18 02/07/22 chewable tablet aspirin 81 mg tablet,delayed 81 mg PO DAILY 05/18/18 02/07/22 release carvedilol 25 mg tablet 12.5 mg PO DAILY 05/18/18 02/07/22 cholecalciferol (vitamin D3) 50 2,000 unit PO DIRECTED 05/18/18 02/07/22 mcg (2,000 unit) capsule (Vitamin D3) eplerenone 25 mg tablet 25 mg PO DAILY 05/18/18 02/07/22 ferrous sulfate 325 mg (65 mg 325 mg PO BID 05/18/18 02/07/22 iron) tablet finasteride 5 mg tablet 5 mg PO DAILY 05/18/18 02/07/22 folic acid 1 mg tablet 1 mg PO DAILY 05/18/18 02/07/22 loratadine 10 mg tablet 10 mg PO DAILY 05/18/18 02/07/22 nitroglycerin 0.4 mg sublingual 0.4 mg sublingual Q5-15M PRN Chest 05/18/18 02/07/22 tablet (Nitrostat) Pain omeprazole 20 mg tablet,delayed 20 mg PO DAILY 05/18/18 02/07/22 release potassium chloride 20 mEq 20 meq PO DAILY 05/18/18 02/07/22 tablet,extended release simvastatin 40 mg tablet 20 mg PO BEDTIME 12/07/21 02/07/22 warfarin 5 mg tablet See Rx Instructions .Route .COMPLEX 01/08/22 02/07/22 fluticasone propionate 50 1 spray intranasal DAILY PRN 02/07/22 02/07/22 mcg/actuation nasal allergy symptoms spray,suspension furosemide 40 mg tablet See Rx Instructions PO BID 02/07/22 02/07/22 Previous Rx's Medication Instructions Recorded metolazone 5 mg tablet 5 mg PO DAILY #30 tabs 02/07/22 Allergies Allergy/AdvReac Type Severity Reaction Status Date / Time ibuprofen Allergy Mild NOT GOOD Verified 02/08/22 22:19 FOR STOMACH BLEEDING iodine Allergy Mild UNKNOWN Verified 02/08/22 22:19 Sulfa (Sulfonamide Allergy Mild BURNED A Verified 02/08/22 22:19 Antibiotics) HOLE THRU INTESTINES thallium-201 Allergy Mild BREAKS OUT Verified 02/08/22 22:19 IN BLOTCHES AND ITCHING terazosin Allergy Hypotension Verified 02/08/22 22:19 spironolactone AdvReac Verified 02/08/22 22:19 Review of Systems Review of Systems Narrative: GENERAL: see HPI HEENT: Denies sinus pain, ear pain, sore throat, difficulty swallowing, dizziness. RESPIRATORY: see HPI CARDIOVASCULAR: see HPI GASTROINTESTINAL: Denies nausea, vomiting, abdominal pain, diarrhea, constipation, melena. : Denies dysuria, frequency, incontinence, hematuria, urinary retention. MUSCULOSKELETAL: denies weakness, joint pain, or bony pain SKIN: Denies rash, skin lesions, or other NEUROLOGIC: Denies weakness, headache, numbness, change in speech, confusion, seizures, incoordination. PSYCHIATRIC: No concerning psychosocial issues. 12 point review of systems is negative except for those stated above Patient History Medical History Advanced directives, counseling/discussion Asthma BPH w urinary obs/LUTS Chicken pox Chronic anticoagulation Chronic atrial fibrillation Chronic diastolic CHF (congestive heart failure), NYHA class 1 Colon polyps Coronary artery disease Crohn's disease Diverticular disease Essential hypertension Fractures Hearing loss Hemorrhoid History of colonic polyps History of urinary incontinence (~2018) Measles Mixed hyperlipidemia Mumps Myocardial infarction Obesity Osteoarthritis Positive PPD Primary osteoarthritis involving multiple joints Pulmonary hypertension Tinnitus Vision disorder Surgical History Anesthesia H/O mitral valve replacement (~03/2017) Family History Mother Congestive heart failure Father Coronary artery disease Social History (Updated 02/03/20 @ 03:39 by SANTA Holder) household members: spouse Smoking Status: Never smoker substance use type: does not use Type(s) of exercise: walking frequency: daily Smoking Status: Never smoker alcohol intake frequency: holidays/special occasions only Substance Use Type: does not use Exam Narrative Exam Narrative: GENERAL: [81] year old patient appears stated age. Well-developed patient, in mild distress. HEAD: Atraumatic. Normocephalic. EYES: Pupils equal round and reactive. Extraocular motions intact. No scleral icterus. No injection or drainage. ENT: Nose without bleeding, purulent drainage. Throat without erythema, tonsillar hypertrophy or exudate. Airway patent. NECK: Trachea midline. Non tender CARDIOVASCULAR: Regular rate and rhythm without murmurs, gallops, or rubs. RESPIRATORY: No significant work of breathing, faint crackles in bilateral bases, no hypoxemic GASTROINTESTINAL: Abdomen soft, non-tender, nondistended. EXTREMITIES: 2+ pitting edema bilateral lower extremity BACK: Nontender without deformity or crepitance. No flank tenderness. NEURO: AOx3. SKIN: No rash or erythema of visible areas Initial Vital Signs Initial Vital Signs: Vital Signs Temperature 97.4 F L 02/08/22 22:13 Pulse Rate 86 02/08/22 22:13 Respiratory Rate 19 02/08/22 22:13 Blood Pressure 133/69 02/08/22 22:13 Pulse Oximetry 95 02/08/22 22:13 Oxygen Delivery Method 02/08/22 22:13 Course Orders Ordered: ED Orders 02/08/22 22:23 Chest [XR chest 1V] Stat 02/08/22 22:30 Complete Blood Count AUTO DIFF Stat Comprehensive Metabolic Panel Stat NT-proBNP (BNP-Adult 18+) Stat PT [Prothrombin Time INR] Stat Troponin & CK Cardiac Panel Stat 02/09/22 01:10 Urinalysis and Microscopic Stat Reevaluation(s) Reevaluation #1: Patient able to ambulate through the department with pulse ox that demonstrates a dip to 89% with long ambulation that quickly rebounded back to the 90s with rest. Patient does not demonstrate any significant increased work of breathing and states he actually feels pretty good Consultations Consultation #1: Discussed with cardiology in [place], recommends increasing Lasix to 80 mg twice daily for the next few days while allowing is newly added blood pressure medication to take full effect Vital Signs Vital signs: Vital Signs - 8 hr 02/08/22 22:13 02/08/22 23:51 02/09/22 00:00 Temperature 97.4 F L Pulse Rate 86 78 Respiratory Rate 19 Blood Pressure 133/69 112/70 Pulse Oximetry 95 92 Oxygen Delivery Method Room Air 02/09/22 00:00 02/09/22 00:30 02/09/22 00:30 Temperature Pulse Rate 82 88 Respiratory Rate Blood Pressure 102/64 Pulse Oximetry 93 94 Oxygen Delivery Method MDM - Weakness Lab Data Result diagrams: 02/08/22 22:30 02/08/22 22:30 Labs: Lab Results 02/08/22 02/08/22 02/08/22 Range/Units 22:30 22:30 22:30 WBC 3.4 L (4.5-11.0) X10^3/uL RBC 3.38 L (4.5-5.9) X10^6/uL Hgb 9.7 L (13.5-17.5) g/dL Hct 30.5 L (41-53) % MCV 90.3 (80-100) fL MCH 28.8 (26-34) PG MCHC 31.9 (30-36) % RDW 17.1 H (11.6-14.8) % Plt Count 109 L (150-400) X10^3/uL Neut % (Auto) 55.2 (50-75) % Lymph % (Auto) 19.4 L (25-40) % Parmer % (Auto) 20.9 H (3-14) % Eos % (Auto) 3.5 (2-4) % Baso % (Auto) 1.0 (0-2) % Neut # (Auto) 1900 (1594-3056) /uL Lymph # (Auto) 700 L (0012-3282) /uL Parmer # (Auto) 700 (0-900) /uL Eos # (Auto) 100 (0-450) /uL Baso # (Auto) 0 (0-100) /uL PT 38.7 H (10.1-12.7) SECONDS INR 3.4 H (0.9-1.3) Sodium 140 (137-145) mmol/L Potassium 3.5 (3.4-5.1) mmol/L Chloride 95 L (98-107) mmol/L Carbon Dioxide 37 H (22-32) mmol/L BUN 16 (9-20) mg/dL Creatinine 0.76 (0.66-1.25) mg/dL Estimated GFR > 60 (>60) mL/min BUN/Creatinine Ratio 21.1 (6-22) Glucose 93 (80-110) mg/dL Calcium 8.9 (8.4-10.2) mg/dL Total Bilirubin 0.6 (0.2-1.3) mg/dL AST 32 (17-59) IU/L ALT 17 (<50) IU/L Alkaline Phosphatase 62 (38-126) U/L Total Creatine Kinase 47 L (55-170) U/L CK-MB (CK-2) TNP CK-MB (CK-2) Rel Index TNP Troponin I < 0.012 (0.01-0.034) ng/mL NT-Pro-B Natriuret Pep 2510 H (<450) pg/mL Total Protein 6.5 (6.3-8.2) g/dL Albumin 3.9 (3.5-5.0) g/dL Globulin 2.6 (1.7-4.1) g/dL Albumin/Globulin Ratio 1.5 (1.0-2.8) Urine Color Urine Appearance Urine pH (4.5-8.0) Ur Specific [place] (1.000-1.035) Urine Protein (Negative) Urine Glucose (UA) (Negative) g/dL Urine Ketones (NEGATIVE) Urine Occult Blood (Negative) Urine Nitrate (Negative) Urine Bilirubin (NEGATIVE) Urine Urobilinogen (0.2) E.U./dL Ur Leukocyte Esterase (NEGATIVE) Urine RBC (0-5/HPF) Urine WBC (0-5/HPF) Urine Bacteria (None) Ur Culture Indicated? Micro UA Comment 02/09/22 Range/Units 01:10 WBC (4.5-11.0) X10^3/uL RBC (4.5-5.9) X10^6/uL Hgb (13.5-17.5) g/dL Hct (41-53) % MCV (80-100) fL MCH (26-34) PG MCHC (30-36) % RDW (11.6-14.8) % Plt Count (150-400) X10^3/uL Neut % (Auto) (50-75) % Lymph % (Auto) (25-40) % Parmer % (Auto) (3-14) % Eos % (Auto) (2-4) % Baso % (Auto) (0-2) % Neut # (Auto) (4610-5274) /uL Lymph # (Auto) (1631-1311) /uL Parmer # (Auto) (0-900) /uL Eos # (Auto) (0-450) /uL Baso # (Auto) (0-100) /uL PT (10.1-12.7) SECONDS INR (0.9-1.3) Sodium (137-145) mmol/L Potassium (3.4-5.1) mmol/L Chloride (98-107) mmol/L Carbon Dioxide (22-32) mmol/L BUN (9-20) mg/dL Creatinine (0.66-1.25) mg/dL Estimated GFR (>60) mL/min BUN/Creatinine Ratio (6-22) Glucose (80-110) mg/dL Calcium (8.4-10.2) mg/dL Total Bilirubin (0.2-1.3) mg/dL AST (17-59) IU/L ALT (<50) IU/L Alkaline Phosphatase (38-126) U/L Total Creatine Kinase (55-170) U/L CK-MB (CK-2) CK-MB (CK-2) Rel Index Troponin I (0.01-0.034) ng/mL NT-Pro-B Natriuret Pep (<450) pg/mL Total Protein (6.3-8.2) g/dL Albumin (3.5-5.0) g/dL Globulin (1.7-4.1) g/dL Albumin/Globulin Ratio (1.0-2.8) Urine Color Yellow Urine Appearance Clear Urine pH 7.0 (4.5-8.0) Ur Specific [place] 1.015 (1.000-1.035) Urine Protein Negative (Negative) Urine Glucose (UA) Negative (Negative) g/dL Urine Ketones Negative (NEGATIVE) Urine Occult Blood Negative (Negative) Urine Nitrate Negative (Negative) Urine Bilirubin Negative (NEGATIVE) Urine Urobilinogen 0.2 (0.2) E.U./dL Ur Leukocyte Esterase Negative (NEGATIVE) Urine RBC None seen (0-5/HPF) Urine WBC None seen (0-5/HPF) Urine Bacteria None seen (None) Ur Culture Indicated? Cult not indicated Micro UA Comment Microscopic normal Imaging Data Chest x-ray: Radiologist Impression: Tramaine Medeiros?(Don)??81??M??1940 ? Allergy/Adv: ibuprofen, iodine, Sulfa (Sulfonamide Antibiotics), thallium-201, terazosin, spironolactone (More??) Close Chest X-Ray (Signed) Zechariah Solis - 02/08/22 Chest X-Ray (Signed) Tejinder Clement - 01/28/21 Telemetry Strips 02/03/20 Knee X-Ray (Signed) Alyssa Hayden - 02/02/20 Telemetry Strips 01/04/20 Abdomen/Pelvis CT (Signed) Devon Rodney - 01/04/20 Scrotum Ultrasound (Signed) Harsha Toledo - 01/04/20 Knee X-Ray (Signed) Tyler Meraz - 01/01/[address] (Signed) Cecil Angela - 11/01/19 Knee X-Ray (Signed) Harsha Toledo - 11/01/19 Knee X-Ray (Signed) Tejinder Clement - 10/02/19 Knee X-Ray (Signed) Ronnie Hatch - 06/24/19 Vascular Ultrasound (Signed) Tejinder Clement - 06/02/18 DI Result 06/02/18 Knee X-Ray (Signed) Susan Keenan - 05/27/[address] (Signed) UmeshEzio avendano - 05/18/18 Knee X-Ray (Signed) Tejinder Clement - 05/18/18 Telemetry Strips 03/26/17 Launch?Image [address] [address] XRay Report Signed Patient: Tramaine Medeiros MR#: [id number] : 1940 Acct:[id number] Age/Sex: 81 / M Date of Service: 02/08/22 Loc: ED Accession Number: [id number] ?? Procedure: XR chest 1V Ordering Provider: Nigel Alvarado D.O. PROCEDURE:? XR CHEST 1V ? INDICATIONS:? shortness of breath ? TECHNIQUE:? One view of the chest was acquired.? ? COMPARISON:? [facility], , XR CHEST 1V, 01/28/2021, 11:47. ? FINDINGS:? ? Surgical changes and devices:? Postsurgical changes redemonstrated in the mediastinum including a prosthetic aortic valve ? Lungs and pleura:? There are linear opacities in the right lung base likely representing atelectasis or scarring.? No definite acute consolidation.? No pleural effusions or pneumothorax.? ? Mediastinum:? Mediastinal contours appear unchanged.? Heart size is enlarged.? ? Bones and chest wall:? No suspicious bony lesions.? Overlying soft tissues appear unremarkable.? ? IMPRESSION:? ? 1. No definite acute cardiopulmonary disease. ? ? Dictated by: Zechariah Solis M.D. on 02/08/2022 at 23:37 ? ? Approved by: Zechariah Solis M.D. on 02/08/2022 at 23:38? Discharge Plan Departure Patient Disposition: Home Clinical Impression: CHF (congestive heart failure) Instructions: DI for Heart Failure Activity Restrictions/Additional Instructions: *You have been diagnosed with [acute CHF exacerbation.] *What to do: *Please take Lasix 80 mg morning and night for each of the next 3 days and then resume your normal dosing while continuing to take your metolazone. As we discussed this is the recommendation set forth by your cardiology group. Continues to take your other medications as previously prescribed [ ] New medication prescriptions sent to your pharmacy: [ ] [ ] New medication written as a paper prescription [ ] No new medications given *Please follow up with your primary care provider in 2-3 days, call for an appointment. Let them know you were seen in the Emergency Department and that we ask that you be seen in follow up. We will electronically transmit a record of today's note if your PCP is in our system *If you do not have a primary care provider please contact the [facility] Resource line at [phone]. They will ask some questions about your medical history and help get you set up with a doctor in the community. *Return to Emergency Department if you should have any new, worsening or concerning symptoms, such as [fever greater than 101 F, shaking chills, worsening pain, persistent vomiting or other bothersome symptoms] Prescriptions: No Action albuterol sulfate [Proventil HFA] 90 MCG/PUFF HFA aerosol inhaler 2 puff INH PRN PRN (Reason: Shortness Of Breath) Qty: 0 Pentasa 500 MG capsule, extended release 1,000 mg PO BID Qty: 0 calcium carbonate-vitamin D3 500 mg-2.5 mcg (100 unit) Tablet,Chewable 3 tab PO DAILY Qty: 0 simvastatin 40 mg tablet 20 mg PO BEDTIME fluticasone propionate 50 mcg/actuation spray,suspension 1 spray intranasal DAILY PRN (Reason: allergy symptoms) furosemide 40 mg tablet See Rx Instructions PO BID Rx Instructions: 2 morning, 1 evening orally twice a day; metolazone 5 mg tablet 5 mg PO DAILY Qty: 30 2RF warfarin 5 mg tablet See Rx Instructions .ROUTE .COMPLEX Label Comments: patient states takes in the morning Rx Instructions: 5mg MWF and 2.5mg all other days, or as directed. carvedilol 25 mg Tablet 12.5 mg PO DAILY ferrous sulfate 325 mg (65 mg iron) Tablet 325 mg PO BID ascorbic acid (vitamin C) 500 mg Tablet,Chewable 500 mg PO DAILY nitroglycerin [Nitrostat] 0.4 mg Tablet, Sublingual 0.4 mg SUBLINGUAL Q5-15M PRN (Reason: Chest Pain) folic acid 1 mg Tablet 1 mg PO DAILY finasteride 5 mg Tablet 5 mg PO DAILY loratadine 10 mg Tablet 10 mg PO DAILY omeprazole 20 mg Tablet,Delayed Release (Dr/Ec) 20 mg PO DAILY cholecalciferol (vitamin D3) [Vitamin D3] 2,000 unit Capsule 2,000 unit PO DIRECTED potassium chloride 20 mEq Tablet Extended Release 20 meq PO DAILY aspirin 81 MG tablet,delayed release (DR/EC) 81 mg PO DAILY eplerenone 25 mg Tablet 25 mg PO DAILY Rx Instructions: Takes 1/2 tab Referrals: Barrera Roth MD [Primary Care Provider] - Visit Report Forms: Patient Portal/API
--- NOTE | 2022-02-08 23:14 | PC.NURSE ---
Pt son Eric, phone number is [phone].
--- NOTE | 2022-02-08 23:48 | PC.NURSE ---
pt ambulated to bathroom, O2 sat checked after bathroom @ 92% while ambulating back to room it dropped to 89%, pt denied any SOB states I don't feel winded I just breathe in and out and I'm ok. not on oxygen at home, O2 sat returned to 95% upon lying on stretcher
[2022-02-08 23:51] VITALS: PULSE 78; O2SAT 92
[2022-02-09] VITALS: BP 112/70; PULSE 82; O2SAT 93
[2022-02-09 00:30] VITALS: BP 102/64; PULSE 88; O2SAT 94
[2022-02-09 01:17] LABS: Appearance Urine UA CLEAR; Bilirubin Urine UA NEGATIVE (NEGATIVE); Color Urine UA YELLOW; Glucose Urine UA NEGATIVE (Negative); Ketones Urine UA NEGATIVE (NEGATIVE); Leukocyte Esterase Urine UA NEGATIVE (NEGATIVE); Nitrite Urine UA NEGATIVE (Negative); Occult Blood Urine UA NEGATIVE (Negative); Protein Urine UA NEGATIVE (Negative); Specific Gravity Urine UA 1.015 (1.000-1.035); Urobilinogen Urine UA 0.2 E.U./dL (0.2)
[2022-02-09 01:21] LABS: Bacteria Urine None Seen; RBC Urine None Seen (0-5/HPF); WBC Urine None Seen (0-5/HPF)
[2022-02-09 01:22] LABS: Culture Indicated Urine Cult Not Indicated; Urine Comments Microscopic Normal
== END 2022-02-09 01:50 | disposition home or self-care (01) ==
PROVIDERS: Emergency Provider Emergency Medicine; PCP Internal Medicine
DX: I50.9 Heart failure, unspecified (principal); R06.02 Shortness of breath
CPT/HCPCS: 36415; 71045; 80053; 81001; 82550; 83880; 84484; 85025; 85610; 99284

== ENCOUNTER 2022-02-14 01:08 | Emergency (ER) | payer MEDICARE, OTHER, SELFPAY ==
[2020-02-03 03:16] VITALS: BMI 30.9
[2022-02-14] VITALS (7 sets, daily range): BP systolic 91–97; BP diastolic 53–67; PULSE 73–86; RESP 18–22; O2SAT 92–100; BMI 29.1
--- NOTE | 2022-02-14 01:16 | DI.RAD.S_ITS ---
PROCEDURE: XR CHEST 1V INDICATIONS: chest pain TECHNIQUE: One view of the chest was acquired. COMPARISON: [facility], CR, XR CHEST 1V, 02/08/2022, 22:23. FINDINGS: Surgical changes and devices: Median sternotomy wires, prosthetic heart valve and left atrial appendage occlusive devise are again seen and unchanged. Lungs and pleura: There is mild pulmonary vascular congestion. No definite focal infiltrate. No pleural effusions or pneumothorax. Mediastinum: Tortuous thoracic aorta is seen. Heart size is enlarged. Bones and chest wall: No suspicious bony lesions. Overlying soft tissues appear unremarkable. IMPRESSION: Mild congestion. No definite focal infiltrate, pleural effusion or pneumothorax. No discrepancies from preliminary reading. Dictated by: Cecil Angela M.D. on 02/14/2022 at 8:07 Approved by: Cecil Angela M.D. on 02/14/2022 at 8:08
[2022-02-14 01:38] LABS: INR 4.3 (0.9-1.3); Prothrombin Time 49.6 SECONDS (10.1-12.7)
[2022-02-14 01:42] LABS: Alanine Aminotransferase 15 IU/L (<50); Albumin 3.6 g/dL (3.5-5.0); Albumin Globulin Ratio 1.5 (1.0-2.8); Alkaline Phosphatase 62 U/L (38-126); Aspartate Aminotransferase 31 IU/L (17-59); Bilirubin Total 0.6 mg/dL (0.2-1.3); Blood Urea Nitrogen 31 mg/dL (9-20); Calcium 8.5 mg/dL (8.4-10.2); Chloride 82 mmol/L (98-107); Creatine Kinase 31 U/L (55-170); Estimated Glomerular Filt Rate 58 mL/min (>60); Globulin 2.4 g/dL (1.7-4.1); Glucose 106 mg/dL (80-110); HEMOLYSIS < 15 (0-50); Lipase 214 U/L (23-300); Magnesium 1.8 mg/dL (1.6-2.3); Sodium 135 mmol/L (137-145)
[2022-02-14 01:43] LABS: Add Manual Diff / Slide Review NO; Basophils Absolute Auto 0 /uL (0-100); Basophils Percent Auto 0.8 % (0-2); Eosinophils Absolute Auto 100 /uL (0-450); Eosinophils Percent Auto 2.8 % (2-4); Hematocrit 29.5 % (41-53); Hemoglobin 9.7 g/dL (13.5-17.5); Lymphocytes Absolute Auto 700 /uL (1100-4500); Lymphocytes Percent Auto 16.5 % (25-40); Mean Corpuscular HGB Conc 32.9 % (30-36); Mean Corpuscular Hemoglobin 29.3 PG (26-34); Monocytes Absolute Auto 800 /uL (0-900); Monocytes Percent Auto 18.6 % (3-14); Neutrophils Absolute Auto 2700 /uL (1500-7000); Neutrophils Percent Auto 61.3 % (50-75); Platelet Count 128 X10^3/uL (150-400); Red Blood Cell Count 3.31 X10^6/uL (4.5-5.9); Red Cell Distribution Width 16.6 % (11.6-14.8); White Blood Cell Count 4.4 X10^3/uL (4.5-11.0)
[2022-02-14 01:50] LABS: Carbon Dioxide 42 mmol/L (22-32)
[2022-02-14 01:52] LABS: Potassium 2.2 mmol/L (3.4-5.1)
[2022-02-14 01:54] LABS: Troponin I 0.022 ng/mL (0.01-0.034)
--- NOTE | 2022-02-14 02:07 | ED.CHESTPAIN ---
HPI - Chest Pain General Chief Complaint: Chest Pain Stated Complaint: Chest Pain Time Seen by Provider: 02/14/22 01:40 Source: patient Mode of arrival: EMS History of Present Illness HPI narrative: 81-year-old gentleman with history of congestive heart failure, atrial fibrillation anticoagulated on warfarin, coronary artery disease post CABG, reflux, who was seen on February 08 with signs and symptoms of congestive heart failure. He is prescribed Lasix to be taken b.i.d. for and then return to his usual 40 mg b.i.d.. He presents this evening after having difficulty with his evening meds, 1 of the capsules apparently dissolved in his esophagus and caused him to vomit. After that he got himself cleaned up, got into the shower and developed profuse diaphoresis and chest pain and comes in for further evaluation. The chest pain he describes as sharp stabbing and similar to prior cardiac chest pain and has now completely resolved. He is no longer diaphoretic. He did not use any of his home nitroglycerin. Aside from the recent worsening CHF symptoms he has not had fevers, chills, diarrhea, abdominal pain, headaches. Related Data Home Medications Medication Instructions Recorded Confirmed albuterol sulfate 90 mcg/actuation 2 puff INH PRN PRN Shortness Of 03/22/17 02/07/22 aerosol inhaler (Proventil HFA) Breath ##0 mesalamine 500 mg capsule,extended 1,000 mg PO BID ##0 03/24/17 02/07/22 release (Pentasa) calcium carbonate 500 mg-vitamin 3 tab PO DAILY ##0 03/31/17 02/07/22 D3 2.5 mcg (100 unit) chewable tablet ascorbic acid (vitamin C) 500 mg 500 mg PO DAILY 05/18/18 02/07/22 chewable tablet aspirin 81 mg tablet,delayed 81 mg PO DAILY 05/18/18 02/07/22 release carvedilol 25 mg tablet 12.5 mg PO DAILY 05/18/18 02/07/22 cholecalciferol (vitamin D3) 50 2,000 unit PO DIRECTED 05/18/18 02/07/22 mcg (2,000 unit) capsule (Vitamin D3) eplerenone 25 mg tablet 25 mg PO DAILY 05/18/18 02/07/22 ferrous sulfate 325 mg (65 mg 325 mg PO BID 05/18/18 02/07/22 iron) tablet finasteride 5 mg tablet 5 mg PO DAILY 05/18/18 02/07/22 folic acid 1 mg tablet 1 mg PO DAILY 05/18/18 02/07/22 loratadine 10 mg tablet 10 mg PO DAILY 05/18/18 02/07/22 nitroglycerin 0.4 mg sublingual 0.4 mg sublingual Q5-15M PRN Chest 05/18/18 02/07/22 tablet (Nitrostat) Pain omeprazole 20 mg tablet,delayed 20 mg PO DAILY 05/18/18 02/07/22 release potassium chloride 20 mEq 20 meq PO DAILY 05/18/18 02/07/22 tablet,extended release simvastatin 40 mg tablet 20 mg PO BEDTIME 12/07/21 02/07/22 warfarin 5 mg tablet See Rx Instructions .Route .COMPLEX 01/08/22 02/07/22 fluticasone propionate 50 1 spray intranasal DAILY PRN 02/07/22 02/07/22 mcg/actuation nasal allergy symptoms spray,suspension furosemide 40 mg tablet See Rx Instructions PO BID 02/07/22 02/07/22 Previous Rx's Medication Instructions Recorded metolazone 5 mg tablet 5 mg PO DAILY #30 tabs 02/07/22 potassium chloride 20 mEq/15 mL 30 meq (22.5 mL) PO BID #2,400 mL 02/14/22 oral liquid Allergies Allergy/AdvReac Type Severity Reaction Status Date / Time ibuprofen Allergy Mild NOT GOOD Verified 02/08/22 22:19 FOR STOMACH BLEEDING iodine Allergy Mild UNKNOWN Verified 02/08/22 22:19 Sulfa (Sulfonamide Allergy Mild BURNED A Verified 02/08/22 22:19 Antibiotics) HOLE THRU INTESTINES thallium-201 Allergy Mild BREAKS OUT Verified 02/08/22 22:19 IN BLOTCHES AND ITCHING terazosin Allergy Hypotension Verified 02/08/22 22:19 spironolactone AdvReac Verified 02/08/22 22:19 Review of Systems Review of Systems Narrative: Remainder of complete review of systems is otherwise unremarkable except for that included in the HPI. Patient History Medical History Advanced directives, counseling/discussion Asthma BPH w urinary obs/LUTS Chicken pox Chronic anticoagulation Chronic atrial fibrillation Chronic diastolic CHF (congestive heart failure), NYHA class 1 Colon polyps Coronary artery disease Crohn's disease Diverticular disease Essential hypertension Fractures Hearing loss Hemorrhoid History of colonic polyps History of urinary incontinence (~2018) Measles Mixed hyperlipidemia Mumps Myocardial infarction Obesity Osteoarthritis Positive PPD Primary osteoarthritis involving multiple joints Pulmonary hypertension Tinnitus Vision disorder Surgical History Anesthesia H/O mitral valve replacement (~03/2017) Family History Mother Congestive heart failure Father Coronary artery disease Social History household members: spouse Smoking Status: Never smoker substance use type: does not use Type(s) of exercise: walking frequency: daily Smoking Status: Never smoker alcohol intake frequency: holidays/special occasions only Substance Use Type: does not use Exam Initial Vital Signs Initial Vital Signs: Vital Signs Pulse Rate 73 02/14/22 01:11 Respiratory Rate 18 02/14/22 01:11 Blood Pressure 94/60 02/14/22 01:11 Pulse Oximetry 100 02/14/22 01:11 Oxygen Delivery Method 02/14/22 01:11 General: Healthy appearing, in no acute distress. Able to give a complete and coherent history. Well-nourished well-developed HEENT: Moist mucous membranes, normal sclera with reactive pupils, Neck: No JVD, supple Respiratory: Lungs are clear to auscultation, no wheezing no rales no rhonchi. Full and symmetrical air movement Cardiac: irRegular rate, no murmurs no bruits Abdomen: Soft, nontender, good bowel tones, no flank pain Skin: Warm and dry, no rashes Neurologic: Grossly neurologically intact with no obvious asymmetries or abnormalities Extremities: No trauma, well perfused, chronic venous stasis changes with minimal bilateral lower extremity edema Psych: Cooperative, appropriate insight and affect Course Orders Ordered: ED Orders 02/14/22 01:16 XR chest 1V Stat 02/14/22 01:17 EKG-12 Lead Stat 02/14/22 01:20 Complete Blood Count AUTO DIFF Stat Comprehensive Metabolic Panel Stat Lipase Stat Magnesium Stat PT [Prothrombin Time INR] Stat Troponin & CK Cardiac Panel Stat 02/14/22 03:16 Trop I [Troponin I] Stat POTASSIUM CHLORIDE IN WATER (Potassium Cl 10 Meq/100 Ml Madeline) 10 meq in 100 mls @ 100 mls/hr IV Q1H SCOTT Stop: 02/14/22 06:29 Last Admin: 02/14/22 02:42 Dose: 100 mls/hr Documented By: CN Discontinued Medications Potassium Chloride (Potassium Chloride 20 Meq/15 Ml Udc) 40 meq PO NOW ONE Stop: 02/14/22 02:29 Vital Signs Vital signs: Vital Signs - 8 hr 02/14/22 01:11 Pulse Rate 73 Respiratory Rate 18 Blood Pressure 94/60 Pulse Oximetry 100 Oxygen Delivery Method Room Air MDM - Chest Pain Lab Data Result diagrams: 02/14/22 01:20 02/14/22 01:20 Labs: Lab Results 02/14/22 02/14/22 02/14/22 Range/Units 01:20 01:20 01:20 WBC 4.4 L (4.5-11.0) X10^3/uL RBC 3.31 L (4.5-5.9) X10^6/uL Hgb 9.7 L (13.5-17.5) g/dL Hct 29.5 L (41-53) % MCV 89.0 (80-100) fL MCH 29.3 (26-34) PG MCHC 32.9 (30-36) % RDW 16.6 H (11.6-14.8) % Plt Count 128 L (150-400) X10^3/uL Neut % (Auto) 61.3 (50-75) % Lymph % (Auto) 16.5 L (25-40) % [place] % (Auto) 18.6 H (3-14) % Eos % (Auto) 2.8 (2-4) % Baso % (Auto) 0.8 (0-2) % Neut # (Auto) 2700 (5918-2447) /uL Lymph # (Auto) 700 L (9939-6015) /uL [place] # (Auto) 800 (0-900) /uL Eos # (Auto) 100 (0-450) /uL Baso # (Auto) 0 (0-100) /uL PT 49.6 H D (10.1-12.7) SECONDS INR 4.3 H (0.9-1.3) Sodium 135 L (137-145) mmol/L Potassium 2.2 L* D (3.4-5.1) mmol/L Chloride 82 L (98-107) mmol/L Carbon Dioxide 42 H* (22-32) mmol/L BUN 31 H (9-20) mg/dL Creatinine 1.24 (0.66-1.25) mg/dL Estimated GFR 58 L (>60) mL/min BUN/Creatinine Ratio 25.0 H (6-22) Glucose 106 (80-110) mg/dL Calcium 8.5 (8.4-10.2) mg/dL Magnesium 1.8 (1.6-2.3) mg/dL Total Bilirubin 0.6 (0.2-1.3) mg/dL AST 31 (17-59) IU/L ALT 15 (<50) IU/L Alkaline Phosphatase 62 (38-126) U/L Total Creatine Kinase 31 L (55-170) U/L CK-MB (CK-2) TNP CK-MB (CK-2) Rel Index TNP Troponin I 0.022 (0.01-0.034) ng/mL Total Protein 6.0 L (6.3-8.2) g/dL Albumin 3.6 (3.5-5.0) g/dL Globulin 2.4 (1.7-4.1) g/dL Albumin/Globulin Ratio 1.5 (1.0-2.8) Lipase 214 (23-300) U/L 02/14/22 Range/Units 03:16 WBC (4.5-11.0) X10^3/uL RBC (4.5-5.9) X10^6/uL Hgb (13.5-17.5) g/dL Hct (41-53) % MCV (80-100) fL MCH (26-34) PG MCHC (30-36) % RDW (11.6-14.8) % Plt Count (150-400) X10^3/uL Neut % (Auto) (50-75) % Lymph % (Auto) (25-40) % [place] % (Auto) (3-14) % Eos % (Auto) (2-4) % Baso % (Auto) (0-2) % Neut # (Auto) (0972-9163) /uL Lymph # (Auto) (7453-4552) /uL [place] # (Auto) (0-900) /uL Eos # (Auto) (0-450) /uL Baso # (Auto) (0-100) /uL PT (10.1-12.7) SECONDS INR (0.9-1.3) Sodium (137-145) mmol/L Potassium (3.4-5.1) mmol/L Chloride (98-107) mmol/L Carbon Dioxide (22-32) mmol/L BUN (9-20) mg/dL Creatinine (0.66-1.25) mg/dL Estimated GFR (>60) mL/min BUN/Creatinine Ratio (6-22) Glucose (80-110) mg/dL Calcium (8.4-10.2) mg/dL Magnesium (1.6-2.3) mg/dL Total Bilirubin (0.2-1.3) mg/dL AST (17-59) IU/L ALT (<50) IU/L Alkaline Phosphatase (38-126) U/L Total Creatine Kinase (55-170) U/L CK-MB (CK-2) CK-MB (CK-2) Rel Index Troponin I 0.019 (0.01-0.034) ng/mL Total Protein (6.3-8.2) g/dL Albumin (3.5-5.0) g/dL Globulin (1.7-4.1) g/dL Albumin/Globulin Ratio (1.0-2.8) Lipase (23-300) U/L Imaging Data Chest x-ray: Radiologist's Impression: Moderate central vascular congestion. No definitive pulmonary edema, atelectasis or pulmonary consolidation appreciated. No pleural effusion is suspected. Beni Lomax MD ECG Data Interpretation: Atrial fibrillation rate of [address] T wave changes No acute ischemia MDM Narrative Medical decision making narrative: 81-year-old gentleman with coronary artery disease and congestive heart failure recently seen with mild congestive heart failure exacerbation 40 mg of Lasix b.i.d. was increased to 80 mg b.i.d. for 3 days with significant diuresis mild bump in creatinine and significant hypokalemia. He had an episode this evening of choking on his nighttime meds followed by emesis with than brief episode of chest pain and diaphoresis. INR slightly elevated at 4.7 however there is no evidence of active bleeding or significant worsening to his chronic anemia. Will replace his potassium, he is given 500 cc of normal saline. Chest pain has completely resolved and initial troponin is unremarkable. Will repeat troponin at 2:00 a.m. and re-evaluate. 425am repeat troponin is actually trending down. Patient is chest pain-free. At this time, I believe it is safe for this gentleman to be touched urged home. Ask him to return to his Lasix 40 mg b.i.d.. Will have him increase his potassium to 30 mEq a day rather than 20. He will need to follow-up with lab work with his primary care physician within the next week. Regarding his warfarin, INR today is 4.3. Will ask him to hold his warfarin on 02/14 and 02/15 and restart at his previously scheduled dose. Again, he will need to follow-up with his provider and the [facility] next week. Discharge Plan Departure Patient Disposition: Home Clinical Impression: Acute hypokalemia, Acute kidney injury, Supratherapeutic INR Congestive heart failure Qualifiers: Heart failure type: unspecified Heart failure chronicity: chronic Qualified Code(s): I50.9 - Heart failure, unspecified Instructions: DI for Heart Failure, DI for Hypokalemia Activity Restrictions/Additional Instructions: Thank you for coming in today I think we got to appropriately diuresed with the increase in Lasix over the last couple of days. It has made you slightly dehydrated and has major potassium low. Please go back to 40 mg of Lasix morning and evening. I am going to have you increase your potassium from 20 mEq daily up to 30 mEq daily You will need to follow-up with your primary care doctor and will need to have your potassium level as well as kidney function checked next week Your Coumadin level is elevated at 4.3. With no signs of active bleeding, I am going to suggest that you hold your Coumadin on 02/14 and 02/15 and then restart at your usual dose. You will need to follow-up with your primary doctor and the Coumadin clinic early next week to recheck your numbers There is no evidence of heart attack or heart attack like syndrome. I suspect that the chest pain and diaphoresis that you experience were related to the severity of the vomiting after You choked on your pill. I have given you a prescription for liquid potassium to see if this might be a bit more palatable for you. That prescription has been electronically transmitted to the [facility] in [place] for you If you find that you are getting worse or develop any new symptoms, please feel free to return to the emergency department for further evaluation. Prescriptions: New potassium chloride 20 mEq/15 mL liquid 30 meq PO BID Qty: 2400 3RF No Action albuterol sulfate [Proventil HFA] 90 MCG/PUFF HFA aerosol inhaler 2 puff INH PRN PRN (Reason: Shortness Of Breath) Qty: 0 Pentasa 500 MG capsule, extended release 1,000 mg PO BID Qty: 0 calcium carbonate-vitamin D3 500 mg-2.5 mcg (100 unit) Tablet,Chewable 3 tab PO DAILY Qty: 0 simvastatin 40 mg tablet 20 mg PO BEDTIME fluticasone propionate 50 mcg/actuation spray,suspension 1 spray intranasal DAILY PRN (Reason: allergy symptoms) furosemide 40 mg tablet See Rx Instructions PO BID Rx Instructions: 2 morning, 1 evening orally twice a day; metolazone 5 mg tablet 5 mg PO DAILY Qty: 30 2RF warfarin 5 mg tablet See Rx Instructions .ROUTE .COMPLEX Label Comments: patient states takes in the morning Rx Instructions: 5mg MWF and 2.5mg all other days, or as directed. carvedilol 25 mg Tablet 12.5 mg PO DAILY ferrous sulfate 325 mg (65 mg iron) Tablet 325 mg PO BID ascorbic acid (vitamin C) 500 mg Tablet,Chewable 500 mg PO DAILY nitroglycerin [Nitrostat] 0.4 mg Tablet, Sublingual 0.4 mg SUBLINGUAL Q5-15M PRN (Reason: Chest Pain) folic acid 1 mg Tablet 1 mg PO DAILY finasteride 5 mg Tablet 5 mg PO DAILY loratadine 10 mg Tablet 10 mg PO DAILY omeprazole 20 mg Tablet,Delayed Release (Dr/Ec) 20 mg PO DAILY cholecalciferol (vitamin D3) [Vitamin D3] 2,000 unit Capsule 2,000 unit PO DIRECTED potassium chloride 20 mEq Tablet Extended Release 20 meq PO DAILY aspirin 81 MG tablet,delayed release (DR/EC) 81 mg PO DAILY eplerenone 25 mg Tablet 25 mg PO DAILY Rx Instructions: Takes 1/2 tab Referrals: Barrera Roth MD [Primary Care Provider] -
[2022-02-14] MEDS: POTASSIUM CHLORIDE IN WATER 10 MEQ/100 ML PIGGYBACK 100 MEQ IV ×3 (02:42→05:44)
[2022-02-14 03:48] LABS: Troponin I 0.019 ng/mL (0.01-0.034)
[2022-02-14] MEDS: POTASSIUM CHLORIDE 20 MEQ/15 ML UDC 40 MEQ PO (04:41)
== END 2022-02-14 06:51 | disposition home or self-care (01) ==
PROVIDERS: Emergency Provider Emergency Medicine; PCP Internal Medicine
DX: I50.9 Heart failure, unspecified (principal); E87.6 Hypokalemia; N17.9 Acute kidney failure, unspecified; R79.1 Abnormal coagulation profile
CPT/HCPCS: 36415; 71045; 80053; 82550; 83690; 83735; 84484; 85025; 85610; 93005; 93010; 96365; 96366; 99284

== ENCOUNTER → 2022-02-16 10:27 | Outpatient (CLI) | payer MEDICARE, OTHER, SELFPAY ==
[2022-02-14 14:37] VITALS: BMI 30.9
[2022-02-16 11:54] LABS: Prothrombin Time 34.5 SECONDS (10.1-12.7)
[2022-02-16 12:03] LABS: HEMOLYSIS < 15 (0-50)
[2022-02-16 12:10] LABS: BUN Creatinine Ratio 31.8 (6-22); Blood Urea Nitrogen 41 mg/dL (9-20); Calcium 9.2 mg/dL (8.4-10.2); Chloride 81 mmol/L (98-107); Estimated Glomerular Filt Rate 55 mL/min (>60); Glucose 99 mg/dL (80-110); Sodium 136 mmol/L (137-145)
[2022-02-16 12:12] LABS: Carbon Dioxide 43 mmol/L (22-32); Potassium 2.3 mmol/L (3.4-5.1)
== END ==
PROVIDERS: PCP Internal Medicine; Referring Provider Internal Medicine; Visit Provider Internal Medicine
DX: N17.9 Acute kidney failure, unspecified (principal); E87.6 Hypokalemia; R79.1 Abnormal coagulation profile; Z79.01 Long term (current) use of anticoagulants
CPT/HCPCS: 36415; 80048; 85610

== ENCOUNTER 2022-02-16 13:16 | Emergency (ER) | payer MEDICARE, OTHER, SELFPAY ==
[2022-02-14 14:37] VITALS: BMI 30.9
--- NOTE | 2022-02-16 13:23 | DI.RAD.S_ITS ---
PROCEDURE: XR CHEST 1V INDICATIONS: chest pain TECHNIQUE: One view of the chest was acquired. COMPARISON: [facility], CR, XR CHEST 1V, 01/28/2021, 11:47. [facility], CR, XR CHEST 1V, 02/14/2022, 1:54. FINDINGS: Surgical changes and devices: Aortic valve replacement. Atrial appendage clip. Post median sternotomy. Lungs and pleura: Minimal streaky opacity at the right lung base is unchanged. No pleural effusions or pneumothorax. Mediastinum: Mediastinal contours appear unchanged. Asymmetric elevation of the right hemidiaphragm. Heart size is normal. Bones and chest wall: No suspicious bony lesions. Overlying soft tissues appear unremarkable. IMPRESSION: No acute cardiopulmonary abnormality. Suspect right lung base atelectasis or scarring. Dictated by: Devon Rodney M.D. on 02/16/2022 at 14:35 Approved by: Devon Rodney M.D. on 02/16/2022 at 14:36
[2022-02-16 13:35] VITALS: BP 108/66; PULSE 87; RESP 20; TEMP 36.4; O2SAT 96
[2022-02-16 13:51] LABS: INR 2.9 (0.9-1.3); Prothrombin Time 33.7 SECONDS (10.1-12.7)
[2022-02-16 13:52] LABS: Alanine Aminotransferase 19 IU/L (<50); Albumin Globulin Ratio 1.3 (1.0-2.8); Alkaline Phosphatase 65 U/L (38-126); Aspartate Aminotransferase 44 IU/L (17-59); BUN Creatinine Ratio 33.1 (6-22); Bilirubin Total 0.9 mg/dL (0.2-1.3); Blood Urea Nitrogen 42 mg/dL (9-20); Calcium 9.2 mg/dL (8.4-10.2); Chloride 80 mmol/L (98-107); Creatine Kinase 59 U/L (55-170); Estimated Glomerular Filt Rate 56 mL/min (>60); Glucose 175 mg/dL (80-110); HEMOLYSIS 20 (0-50); Lipase 322 U/L (23-300); Sodium 135 mmol/L (137-145)
[2022-02-16 13:59] LABS: Potassium 2.5 mmol/L (3.4-5.1)
[2022-02-16 14:00] LABS: Carbon Dioxide 46 mmol/L (22-32)
[2022-02-16 14:01] LABS: Add Manual Diff / Slide Review NO; Basophils Absolute Auto 0 /uL (0-100); Basophils Percent Auto 1.1 % (0-2); Eosinophils Absolute Auto 100 /uL (0-450); Eosinophils Percent Auto 1.6 % (2-4); Hemoglobin 10.9 g/dL (13.5-17.5); Lymphocytes Absolute Auto 700 /uL (1100-4500); Lymphocytes Percent Auto 18.8 % (25-40); Mean Corpuscular Hemoglobin 29.2 PG (26-34); Mean Corpuscular Volume 88.3 fL (80-100); Monocytes Absolute Auto 500 /uL (0-900); Monocytes Percent Auto 13.6 % (3-14); Neutrophils Absolute Auto 2600 /uL (1500-7000); Neutrophils Percent Auto 64.9 % (50-75); Platelet Count 149 X10^3/uL (150-400); Red Blood Cell Count 3.73 X10^6/uL (4.5-5.9); Red Cell Distribution Width 16.4 % (11.6-14.8)
--- NOTE | 2022-02-16 14:02 | ED_ITS ---
HPI - Recheck/Abnormal Lab/Rx General Chief Complaint: Recheck/Abnormal Lab/Rx Stated Complaint: Low potassium Time Seen by Provider: 02/16/22 13:40 Source: patient Mode of arrival: Ambulatory History of Present Illness HPI narrative: Patient is a 81-year-old male history of diastolic CHF on Lasix with mitral valve repair in 2019 had recent increase in Lasix on February 08 to b.i.d. then return to his usual 40 mg. His potassium was increased at that time as well. He was seen and evaluated in the emergency department for some chest discomfort on February 14. At that time he was found to be hypokalemic with a potassium of 2.2. It appears that he was given some IV potassium in the emergency department and increased oral potassium to 30 mEq. He followed up with his primary care provider's who did some outpatient blood work he still hypokalemic with a potassium of 2.3. Sent into the ED for replacement. He has absolutely no comp laints. He has no chest pain shortness of breath numbness tingling weakness. Overall feels slightly tired and would like to take a nap. He took 20 mEq of potassium today. Related Data Home Medications Medication Instructions Recorded Confirmed albuterol sulfate 90 mcg/actuation 2 puff INH PRN PRN Shortness Of 03/22/17 02/15/22 aerosol inhaler (Proventil HFA) Breath ##0 mesalamine 500 mg capsule,extended 1,000 mg PO BID ##0 03/24/17 02/15/22 release (Pentasa) calcium carbonate 500 mg-vitamin 3 tab PO DAILY ##0 03/31/17 02/15/22 D3 2.5 mcg (100 unit) chewable tablet ascorbic acid (vitamin C) 500 mg 500 mg PO DAILY 05/18/18 02/15/22 chewable tablet aspirin 81 mg tablet,delayed 81 mg PO DAILY 05/18/18 02/15/22 release carvedilol 25 mg tablet 12.5 mg PO DAILY 05/18/18 02/15/22 cholecalciferol (vitamin D3) 50 2,000 unit PO DIRECTED 05/18/18 02/15/22 mcg (2,000 unit) capsule (Vitamin D3) eplerenone 25 mg tablet 25 mg PO DAILY 05/18/18 02/15/22 ferrous sulfate 325 mg (65 mg 325 mg PO BID 05/18/18 02/15/22 iron) tablet finasteride 5 mg tablet 5 mg PO DAILY 05/18/18 02/15/22 folic acid 1 mg tablet 1 mg PO DAILY 05/18/18 02/15/22 loratadine 10 mg tablet 10 mg PO DAILY 05/18/18 02/15/22 nitroglycerin 0.4 mg sublingual 0.4 mg sublingual Q5-15M PRN Chest 05/18/18 02/15/22 tablet (Nitrostat) Pain omeprazole 20 mg tablet,delayed 20 mg PO DAILY 05/18/18 02/15/22 release potassium chloride 20 mEq 20 meq PO DAILY 05/18/18 02/15/22 tablet,extended release simvastatin 40 mg tablet 20 mg PO BEDTIME 12/07/21 02/15/22 warfarin 5 mg tablet See Rx Instructions .Route .COMPLEX 01/08/22 02/15/22 fluticasone propionate 50 1 spray intranasal DAILY PRN 02/07/22 02/15/22 mcg/actuation nasal allergy symptoms spray,suspension furosemide 40 mg tablet See Rx Instructions PO BID 02/07/22 02/15/22 Allergies Allergy/AdvReac Type Severity Reaction Status Date / Time ibuprofen Allergy Mild NOT GOOD Verified 02/15/22 07:51 FOR STOMACH BLEEDING iodine Allergy Mild UNKNOWN Verified 02/15/22 07:51 Sulfa (Sulfonamide Allergy Mild BURNED A Verified 02/15/22 07:51 Antibiotics) HOLE THRU INTESTINES thallium-201 Allergy Mild BREAKS OUT Verified 02/15/22 07:51 IN BLOTCHES AND ITCHING terazosin Allergy Hypotension Verified 02/15/22 07:51 spironolactone AdvReac Verified 02/15/22 07:51 Review of Systems Review of Systems Narrative: GENERAL: Denies chills, fatigue, malaise, fever, sweats, travel HEENT: Denies sinus pain, ear pain, sore throat, difficulty swallowing, neck pain RESPIRATORY: Denies dyspnea, cough, wheezing, hemoptysis, sputum. CARDIOVASCULAR: Denies chest pain, palpitations, orthopnea, edema GASTROINTESTINAL: Denies nausea, vomiting, abdominal pain, diarrhea, constipation, melena. : Denies dysuria, frequency, incontinence, hematuria, urinary retention, flank pain. MUSCULOSKELETAL: Denies weakness, joint pain, or bony pain SKIN: No rash, no erythema, no pruritus NEUROLOGIC: Denies weakness, dizziness, headache, numbness, change in speech, confusion PSYCHIATRIC: No concerning psychosocial issues. 12 point review of systems is negative except for those stated above and HPI Patient History Medical History Asthma BPH w urinary obs/LUTS Chicken pox Chronic anticoagulation Chronic atrial fibrillation Chronic diastolic CHF (congestive heart failure), NYHA class 1 Colon polyps Coronary artery disease Crohn's disease Diverticular disease Essential hypertension Fractures Hearing loss Hemorrhoid History of colonic polyps History of urinary incontinence (~2018) Measles Mixed hyperlipidemia Mumps Myocardial infarction Obesity Osteoarthritis Positive PPD Primary osteoarthritis involving multiple joints Pulmonary hypertension Tinnitus Vision disorder Surgical History Anesthesia H/O mitral valve replacement (~03/2017) Family History Mother Congestive heart failure Father Coronary artery disease Social History household members: spouse Smoking Status: Never smoker substance use type: does not use Type(s) of exercise: walking frequency: daily Smoking Status: Never smoker alcohol intake frequency: holidays/special occasions only Substance Use Type: does not use Exam Initial Vital Signs Initial Vital Signs: Vital Signs Temperature 97.6 F 02/16/22 13:35 Pulse Rate 87 02/16/22 13:35 Respiratory Rate 20 02/16/22 13:35 Blood Pressure 108/66 02/16/22 13:35 Pulse Oximetry 96 02/16/22 13:35 Oxygen Delivery Method 02/16/22 13:35 GENERAL: Alert pleasant 81-year-old male and in no acute distress. HEENT: Head atraumatic,EOMI, pupils reactive, face symmetric, moist mucous membranes CARDIOVASCULAR: Regular rate and rhythm without murmurs, rubs or gallops. RESPIRATORY: Breath sounds equal bilaterally, no wheezes rales or rhonchi. ABDOMEN: Soft, nontender. Normoactive bowel sounds all 4 quadrants. No guarding or rebound. EXTREMITIES: Normal range of motion, no clubbing or edema. Neurovascularly intact NEUROLOGICAL: Alert and oriented x4.Normal gait and speech. SKIN: Warm, dry, no laceration, no petechiae, no rashes or lesions. Course Orders Ordered: ED Orders 02/16/22 13:23 XR chest 1V Stat EKG-12 Lead Stat 02/16/22 13:30 Prothrombin Time INR Stat 02/16/22 13:37 Complete Blood Count AUTO DIFF Stat Comprehensive Metabolic Panel Stat Lipase Stat Magnesium Stat Troponin & CK Cardiac Panel Stat Discontinued Medications POTASSIUM CHLORIDE IN WATER (Potassium Cl 10 Meq/100 Ml Madeline) 10 meq in 100 mls @ 100 mls/hr IV Q1H SCOTT Stop: 02/16/22 17:59 Last Infusion: 02/16/22 19:11 Dose: 100 mls/hr Documented By: Admin: 02/16/22 18:16 Dose: 100 mls/hr Documented By: Infusion: 02/16/22 17:59 Dose: 0 mls/hr Documented By: Admin: 02/16/22 16:47 Dose: 100 mls/hr Documented By: Infusion: 02/16/22 16:15 Dose: 100 mls/hr Documented By: Admin: 02/16/22 15:15 Dose: 100 mls/hr Documented By: MLMumtaz Infusion: 02/16/22 15:12 Dose: 100 mls/hr Documented By: MLMumtaz Admin: 02/16/22 14:12 Dose: 100 mls/hr Documented By: BATOOL Vital Signs Vital signs: Vital Signs - 8 hr 02/16/22 13:35 Temperature 97.6 F Pulse Rate 87 Respiratory Rate 20 Blood Pressure 108/66 Pulse Oximetry 96 Oxygen Delivery Method Room Air MDM - Recheck/Abnormal Lab/Rx Lab Data Result diagrams: 02/16/22 13:37 02/16/22 13:37 Labs: Lab Results 02/16/22 02/16/22 02/16/22 Range/Units 13:30 13:37 13:37 WBC 4.0 L (4.5-11.0) X10^3/uL RBC 3.73 L (4.5-5.9) X10^6/uL Hgb 10.9 L (13.5-17.5) g/dL Hct 33.0 L (41-53) % MCV 88.3 (80-100) fL MCH 29.2 (26-34) PG MCHC 33.0 (30-36) % RDW 16.4 H (11.6-14.8) % Plt Count 149 L (150-400) X10^3/uL Neut % (Auto) 64.9 (50-75) % Lymph % (Auto) 18.8 L (25-40) % [place] % (Auto) 13.6 (3-14) % Eos % (Auto) 1.6 L (2-4) % Baso % (Auto) 1.1 (0-2) % Neut # (Auto) 2600 (6941-3249) /uL Lymph # (Auto) 700 L (1161-8228) /uL [place] # (Auto) 500 (0-900) /uL Eos # (Auto) 100 (0-450) /uL Baso # (Auto) 0 (0-100) /uL PT 33.7 H (10.1-12.7) SECONDS INR 2.9 H (0.9-1.3) Sodium 135 L (137-145) mmol/L Potassium 2.5 L* (3.4-5.1) mmol/L Chloride 80 L (98-107) mmol/L Carbon Dioxide 46 H* (22-32) mmol/L BUN 42 H (9-20) mg/dL Creatinine 1.27 H (0.66-1.25) mg/dL Estimated GFR 56 L (>60) mL/min BUN/Creatinine Ratio 33.1 H (6-22) Glucose 175 H (80-110) mg/dL Calcium 9.2 (8.4-10.2) mg/dL Magnesium 2.0 (1.6-2.3) mg/dL Total Bilirubin 0.9 (0.2-1.3) mg/dL AST 44 (17-59) IU/L ALT 19 (<50) IU/L Alkaline Phosphatase 65 (38-126) U/L Total Creatine Kinase 59 (55-170) U/L CK-MB (CK-2) TNP CK-MB (CK-2) Rel Index TNP Troponin I 0.018 (0.01-0.034) ng/mL Total Protein 7.0 (6.3-8.2) g/dL Albumin 4.0 (3.5-5.0) g/dL Globulin 3.0 (1.7-4.1) g/dL Albumin/Globulin Ratio 1.3 (1.0-2.8) Lipase 322 H D (23-300) U/L ECG Data Interpretation: Atrial fibrillation rate 83 with PVC noted no ST changes similar to previous EKG MDM Narrative Medical decision making narrative: Patient overall is doing very well and is very kind and sweet and completely asymptomatic. He received 40 mEq of potassium IVPB. He will continue to take his p.o. potassium. His PCP called me earlier today to say that he was coming in so he will be sure to follow up with him next week. Discharge Plan Departure Patient Disposition: Home Clinical Impression: Acute hypokalemia Instructions: High-Potassium Diet Activity Restrictions/Additional Instructions: *You have been diagnosed with low potassium *What to do: It was such a pleasure to see you again please take very good care of yourself. Have your potassium rechecked with Dr. Roth next week. *Continue to take medications as directed Potassium tablets 20 mEq once a day *Follow up with your primary care provider in 2-3 days or call [phone] *Return to ER if you should have weakness, chest pain shortness of breath or any new, worsening or concerning symptoms Prescriptions: No Action albuterol sulfate [Proventil HFA] 90 MCG/PUFF HFA aerosol inhaler 2 puff INH PRN PRN (Reason: Shortness Of Breath) Qty: 0 Pentasa 500 MG capsule, extended release 1,000 mg PO BID Qty: 0 calcium carbonate-vitamin D3 500 mg-2.5 mcg (100 unit) Tablet,Chewable 3 tab PO DAILY Qty: 0 simvastatin 40 mg tablet 20 mg PO BEDTIME fluticasone propionate 50 mcg/actuation spray,suspension 1 spray intranasal DAILY PRN (Reason: allergy symptoms) furosemide 40 mg tablet See Rx Instructions PO BID Rx Instructions: 2 morning, 1 evening orally twice a day; warfarin 5 mg tablet See Rx Instructions .ROUTE .COMPLEX Label Comments: patient states takes in the morning Rx Instructions: 5mg MWF and 2.5mg all other days, or as directed. carvedilol 25 mg Tablet 12.5 mg PO DAILY ferrous sulfate 325 mg (65 mg iron) Tablet 325 mg PO BID ascorbic acid (vitamin C) 500 mg Tablet,Chewable 500 mg PO DAILY nitroglycerin [Nitrostat] 0.4 mg Tablet, Sublingual 0.4 mg SUBLINGUAL Q5-15M PRN (Reason: Chest Pain) folic acid 1 mg Tablet 1 mg PO DAILY finasteride 5 mg Tablet 5 mg PO DAILY loratadine 10 mg Tablet 10 mg PO DAILY omeprazole 20 mg Tablet,Delayed Release (Dr/Ec) 20 mg PO DAILY cholecalciferol (vitamin D3) [Vitamin D3] 2,000 unit Capsule 2,000 unit PO DIRECTED potassium chloride 20 mEq Tablet Extended Release 20 meq PO DAILY aspirin 81 MG tablet,delayed release (DR/EC) 81 mg PO DAILY eplerenone 25 mg Tablet 25 mg PO DAILY Rx Instructions: Takes 1/2 tab Referrals: Barrera Roth MD [Primary Care Provider] - Visit Report Forms: Patient Portal/API
[2022-02-16 14:03] LABS: Troponin I 0.018 ng/mL (0.01-0.034)
[2022-02-16] MEDS: POTASSIUM CHLORIDE IN WATER 10 MEQ/100 ML PIGGYBACK 100 MEQ IV ×4 (14:12→18:16)
== END 2022-02-16 19:43 | disposition home or self-care (01) ==
PROVIDERS: Emergency Provider Emergency Medicine; PCP Internal Medicine; Referring Provider Internal Medicine
DX: E87.6 Hypokalemia (principal); N17.9 Acute kidney failure, unspecified; R79.1 Abnormal coagulation profile; Z79.01 Long term (current) use of anticoagulants
CPT/HCPCS: 36415; 71045; 80048; 80053; 82550; 83690; 83735; 84484; 85025; 85610; 93005; 93010; 96365; 96366; 99284

== ENCOUNTER → 2022-02-22 11:32 | Outpatient (CLI) | payer MEDICARE, OTHER, SELFPAY ==
[2022-02-14 14:37] VITALS: BMI 30.9
[2022-02-22 12:36] LABS: INR 1.7 (0.9-1.3); Prothrombin Time 19.3 SECONDS (10.1-12.7)
== END ==
PROVIDERS: PCP Internal Medicine; Referring Provider Internal Medicine; Visit Provider Internal Medicine
DX: Z79.01 Long term (current) use of anticoagulants (principal)
CPT/HCPCS: 36415; 85610

== ENCOUNTER → 2022-03-01 09:52 | Outpatient (CLI) | payer MEDICARE, OTHER, SELFPAY ==
[2022-02-14 14:37] VITALS: BMI 30.9
[2022-03-01 10:50] LABS: Prothrombin Time 23.1 SECONDS (10.1-12.7)
== END ==
PROVIDERS: PCP Internal Medicine; Referring Provider Internal Medicine; Visit Provider Internal Medicine
DX: Z79.01 Long term (current) use of anticoagulants (principal); I48.20 Chronic atrial fibrillation, unspecified
CPT/HCPCS: 36415; 85610

== ENCOUNTER → 2022-03-08 10:27 | Outpatient (CLI) | payer MEDICARE, OTHER, SELFPAY ==
[2022-02-14 14:37] VITALS: BMI 30.9
[2022-03-08 12:58] LABS: INR 2.2 (0.9-1.3); Prothrombin Time 25.4 SECONDS (10.1-12.7)
== END ==
PROVIDERS: PCP Internal Medicine; Referring Provider Internal Medicine; Visit Provider Internal Medicine
DX: Z79.01 Long term (current) use of anticoagulants (principal); I48.20 Chronic atrial fibrillation, unspecified
CPT/HCPCS: 36415; 85610

== ENCOUNTER → 2022-03-18 15:22 | Outpatient (CLI) | payer MEDICARE, OTHER, SELFPAY ==
[2022-02-14 14:37] VITALS: BMI 30.9
[2022-03-18 18:14] LABS: Alanine Aminotransferase 15 IU/L (<50); Albumin 3.5 g/dL (3.5-5.0); Albumin Globulin Ratio 1.3 (1.0-2.8); Alkaline Phosphatase 58 U/L (38-126); Aspartate Aminotransferase 29 IU/L (17-59); BUN Creatinine Ratio 18.5 (6-22); Bilirubin Total 0.6 mg/dL (0.2-1.3); Blood Urea Nitrogen 15 mg/dL (9-20); Calcium 8.9 mg/dL (8.4-10.2); Chloride 92 mmol/L (98-107); Estimated Glomerular Filt Rate > 60 mL/min (>60); Globulin 2.6 g/dL (1.7-4.1); Glucose 86 mg/dL (80-110); HEMOLYSIS < 15 (0-50); Potassium 2.8 mmol/L (3.4-5.1); Sodium 138 mmol/L (137-145); Total Protein 6.1 g/dL (6.3-8.2)
[2022-03-18 18:20] LABS: Carbon Dioxide 39 mmol/L (22-32)
== END ==
PROVIDERS: PCP Internal Medicine; Referring Provider Nurse Practitioner; Visit Provider Nurse Practitioner
DX: I34.0 Nonrheumatic mitral (valve) insufficiency (principal); I50.32 Chronic diastolic (congestive) heart failure; Z98.890 Other specified postprocedural states
CPT/HCPCS: 36415; 80053

== ENCOUNTER → 2022-03-22 14:36 | Outpatient (CLI) | payer MEDICARE, OTHER, SELFPAY ==
[2022-02-14 14:37] VITALS: BMI 30.9
[2022-03-22 15:45] LABS: INR 2.4 (0.9-1.3); Prothrombin Time 27.3 SECONDS (10.1-12.7)
[2022-03-22 15:49] LABS: BUN Creatinine Ratio 20.7 (6-22); Blood Urea Nitrogen 18 mg/dL (9-20); Calcium 8.7 mg/dL (8.4-10.2); Carbon Dioxide 39 mmol/L (22-32); Chloride 91 mmol/L (98-107); Estimated Glomerular Filt Rate > 60 mL/min (>60); Glucose 86 mg/dL (80-110); HEMOLYSIS < 15 (0-50); Sodium 137 mmol/L (137-145)
== END ==
PROVIDERS: PCP Internal Medicine; Referring Provider Internal Medicine; Visit Provider Internal Medicine
DX: I48.20 Chronic atrial fibrillation, unspecified (principal); E87.6 Hypokalemia; Z79.01 Long term (current) use of anticoagulants
CPT/HCPCS: 36415; 80048; 85610

== ENCOUNTER → 2022-03-29 10:25 | Outpatient (CLI) | payer MEDICARE, OTHER, SELFPAY ==
[2022-02-14 14:37] VITALS: BMI 30.9
[2022-03-29 12:47] LABS: INR 2.1 (0.9-1.3); Prothrombin Time 23.8 SECONDS (10.1-12.7)
== END ==
PROVIDERS: PCP Internal Medicine; Referring Provider Internal Medicine; Visit Provider Internal Medicine
DX: I48.20 Chronic atrial fibrillation, unspecified (principal); Z79.01 Long term (current) use of anticoagulants
CPT/HCPCS: 36415; 85610

== ENCOUNTER → 2022-04-15 15:19 | Outpatient (CLI) | payer MEDICARE, OTHER, SELFPAY ==
[2022-02-14 14:37] VITALS: BMI 30.9
[2022-04-15 16:54] LABS: BUN Creatinine Ratio 43.4 (6-22); Blood Urea Nitrogen 46 mg/dL (9-20); Calcium 9.3 mg/dL (8.4-10.2); Chloride 87 mmol/L (98-107); Estimated Glomerular Filt Rate > 60 mL/min (>60); Glucose 95 mg/dL (80-110); HEMOLYSIS < 15 (0-50); Potassium 3.2 mmol/L (3.4-5.1); Sodium 135 mmol/L (137-145)
[2022-04-15 17:03] LABS: Carbon Dioxide 39 mmol/L (22-32)
== END ==
PROVIDERS: PCP Internal Medicine; Referring Provider Nurse Practitioner; Visit Provider Nurse Practitioner
DX: E87.6 Hypokalemia (principal)
CPT/HCPCS: 36415; 80048

== ENCOUNTER → 2022-04-19 14:35 | Outpatient (CLI) | payer MEDICARE, OTHER, SELFPAY ==
[2022-02-14 14:37] VITALS: BMI 30.9
[2022-04-19 16:17] LABS: INR 1.9 (0.9-1.3); Prothrombin Time 21.9 SECONDS (10.1-12.7)
== END ==
PROVIDERS: PCP Internal Medicine; Referring Provider Internal Medicine; Visit Provider Internal Medicine
DX: I48.20 Chronic atrial fibrillation, unspecified (principal); Z79.01 Long term (current) use of anticoagulants
CPT/HCPCS: 36415; 85610

== ENCOUNTER 2022-04-25 22:37 | Emergency (ER) | payer MEDICARE, OTHER, SELFPAY ==
[2022-02-14 14:37] VITALS: BMI 30.9
[2022-04-25 23:02] VITALS: BP 98/55; PULSE 64; RESP 20; TEMP 36.5; O2SAT 98; BMI 25.2
--- NOTE | 2022-04-26 00:58 | ED.RECABL ---
HPI - Recheck/Abnormal Lab/Rx General Chief Complaint: Recheck/Abnormal Lab/Rx Stated Complaint: states has a bad hernia Time Seen by Provider: 04/26/22 00:43 Source: patient Mode of arrival: Wheelchair Limitations: no limitations History of Present Illness HPI narrative: 81-year-old male here for evaluation of what he states is a inguinal hernia on the right side. He is scheduled to see General surgery at the end of this month as an initial evaluation. He states that he has a hernia on the right side that very frequently will protrude. Does become tender at some points. He is able to sit back in his chair and reduce it. Today the pain was specifically worse than what it normally is. He tried to reduce it at home but had a difficult time in the pain improved but not completely gone. He is no urinary symptoms. No change in bowel habits. Related Data Home Medications Medication Instructions Recorded Confirmed albuterol sulfate 90 mcg/actuation 2 puff INH PRN PRN Shortness Of 03/22/17 04/24/22 aerosol inhaler (Proventil HFA) Breath ##0 mesalamine 500 mg capsule,extended 1,000 mg PO BID ##0 03/24/17 04/24/22 release (Pentasa) calcium carbonate 500 mg-vitamin 3 tab PO DAILY ##0 03/31/17 04/24/22 D3 2.5 mcg (100 unit) chewable tablet aspirin 81 mg tablet,delayed 81 mg PO DAILY 05/18/18 04/24/22 release carvedilol 25 mg tablet 12.5 mg PO DAILY 05/18/18 04/24/22 cholecalciferol (vitamin D3) 50 2,000 unit PO DIRECTED 05/18/18 04/24/22 mcg (2,000 unit) capsule (Vitamin D3) eplerenone 25 mg tablet 25 mg PO DAILY 05/18/18 04/24/22 ferrous sulfate 325 mg (65 mg 325 mg PO BID 05/18/18 04/24/22 iron) tablet finasteride 5 mg tablet 5 mg PO DAILY 05/18/18 04/24/22 folic acid 1 mg tablet 1 mg PO DAILY 05/18/18 04/24/22 loratadine 10 mg tablet 10 mg PO DAILY 05/18/18 04/24/22 nitroglycerin 0.4 mg sublingual 0.4 mg sublingual Q5-15M PRN Chest 05/18/18 04/24/22 tablet (Nitrostat) Pain simvastatin 40 mg tablet 20 mg PO BEDTIME 12/07/21 04/24/22 warfarin 5 mg tablet See Rx Instructions .Route .COMPLEX 01/08/22 04/24/22 fluticasone propionate 50 1 spray intranasal DAILY PRN 02/07/22 04/24/22 mcg/actuation nasal allergy symptoms spray,suspension furosemide 40 mg tablet See Rx Instructions PO BID 02/07/22 04/24/22 acetaminophen 325 mg tablet 650 mg PO Q4H PRN 04/24/22 04/24/22 alfuzosin 10 mg tablet,extended 10 mg PO DAILY 04/24/22 04/24/22 release 24 hr ascorbic acid (vitamin C) 500 mg 500 mg PO DAILY 04/24/22 04/24/22 tablet cyclobenzaprine 10 mg tablet 10 mg PO TID 04/24/22 04/24/22 isosorbide mononitrate 30 mg 30 mg PO DAILY 04/24/22 04/24/22 tablet,extended release 24 hr metolazone 2.5 mg tablet 2.5 mg PO 3XW 04/24/22 04/24/22 neomycin-polymyxin 1 ea topical DAILY PRN 04/24/22 04/24/22 K-izxvtzbdmy-uengopinvjjmqp top ointment omeprazole 20 mg tablet,delayed 20 mg PO DAILY 04/24/22 04/24/22 release ondansetron 4 mg disintegrating 4 mg PO Q8H 04/24/22 04/24/22 tablet potassium chloride 10 mEq 30 meq PO DAILY 04/24/22 04/24/22 tablet,extended release prednisone 10 mg tablet 10 mg PO DAILY 04/24/22 04/24/22 propranolol 20 mg tablet 20 mg PO DAILY 04/24/22 04/24/22 tramadol 50 mg tablet 50 mg PO DAILY PRN 04/24/22 04/24/22 trazodone 50 mg tablet 50 mg PO BEDTIME PRN 04/24/22 04/24/22 vit 2 cap PO DAILY 04/24/22 04/24/22 C,E,zinc,Dw-rhsea-2-lutein-zeaxanthin 250 mg-2.5 mg-0.5 mg capsule vitamin B complex 1 tab PO DAILY 04/24/22 04/24/22 Allergies Allergy/AdvReac Type Severity Reaction Status Date / Time ibuprofen Allergy Mild NOT GOOD Verified 04/24/22 13:05 FOR STOMACH BLEEDING iodine Allergy Mild UNKNOWN Verified 04/24/22 13:05 Sulfa (Sulfonamide Allergy Mild BURNED A Verified 04/24/22 13:05 Antibiotics) HOLE THRU INTESTINES thallium-201 Allergy Mild BREAKS OUT Verified 04/24/22 13:05 IN BLOTCHES AND ITCHING terazosin Allergy Hypotension Verified 04/24/22 13:05 spironolactone AdvReac Verified 04/24/22 13:05 Review of Systems Constitutional Constitutional: Reports system reviewed and no additional complaints, except as documented Gastrointestinal Gastrointestinal: Reports system reviewed and no additional complaints, except as documented Genitourinary Genitourinary: Reports system reviewed and no additional complaints, except as documented Integumentary/Breasts Skin/Breast: Reports system reviewed and no additional complaints, except as documented Patient History Medical History Asthma BPH w urinary obs/LUTS Chicken pox Chronic anticoagulation Chronic atrial fibrillation Chronic diastolic CHF (congestive heart failure), NYHA class 1 Colon polyps Coronary artery disease Crohn's disease Diverticular disease Essential hypertension Fractures Hearing loss Hemorrhoid History of colonic polyps History of urinary incontinence (~2018) Measles Mixed hyperlipidemia Mumps Myocardial infarction Obesity Osteoarthritis Positive PPD Primary osteoarthritis involving multiple joints Pulmonary hypertension Right inguinal hernia Tinnitus Vision disorder Surgical History Anesthesia H/O mitral valve replacement (~03/2017) Family History Mother Congestive heart failure Father Coronary artery disease Social History household members: spouse Smoking Status: Never smoker substance use type: does not use Type(s) of exercise: walking frequency: daily Smoking Status: Never smoker alcohol intake frequency: holidays/special occasions only Substance Use Type: does not use Exam Initial Vital Signs Initial Vital Signs: Vital Signs Temperature 97.7 F 04/25/22 23:02 Pulse Rate 64 04/25/22 23:02 Respiratory Rate 20 04/25/22 23:02 Blood Pressure 98/55 L 04/25/22 23:02 Pulse Oximetry 98 04/25/22 23:02 Oxygen Delivery Method 04/25/22 23:02 Const General: cooperative and healthy appearing GI Inspection: normal to inspection and non-distended Palpation: soft and No tender Other: With Valsalva maneuver the patient does have appears to be a right inguinal hernia was likely a direct hernia as it does not extend down into the scrotum. This is easily reducible. Skin General: no rashes or lesions noted Course Vital Signs Vital signs: Vital Signs - 8 hr 04/25/22 23:02 04/26/22 01:15 Temperature 97.7 F Pulse Rate 64 58 L Respiratory Rate 20 14 Blood Pressure 98/55 L 105/59 L Pulse Oximetry 98 99 Oxygen Delivery Method Room Air Room Air MDM - Recheck/Abnormal Lab/Rx MDM Narrative Medical decision making narrative: Patient does have what appears to be a right inguinal hernia however it is easily reducible. I had a long discussion with him regarding his symptoms. Informed him that he does need to keep his appointment with General surgery. Informed him that if the hernia ever protrudes and he is unable to push it back in or if he starts to get a worsening pain that he does need to return to the emergency department. No indication for CT scans. Was given return precautions. He expressed understanding and agreement. Discharge Plan Departure Patient Disposition: Home Clinical Impression: Inguinal hernia Instructions: Groin Hernia -- Adult Activity Restrictions/Additional Instructions: It sounds like you are doing everything appropriately at home to try to reduce the hernia when it starts to stick out and become painful. Please keep your appointment that you have with General surgery coming up at the end of this month. If while your at-home the hernia comes out and does not go back in or it becomes more painful please return to the emergency department for further evaluation. Prescriptions: No Action albuterol sulfate [Proventil HFA] 90 MCG/PUFF HFA aerosol inhaler 2 puff INH PRN PRN (Reason: Shortness Of Breath) Qty: 0 Pentasa 500 MG capsule, extended release 1,000 mg PO BID Qty: 0 calcium carbonate-vitamin D3 500 mg-2.5 mcg (100 unit) Tablet,Chewable 3 tab PO DAILY Qty: 0 simvastatin 40 mg tablet 20 mg PO BEDTIME fluticasone propionate 50 mcg/actuation spray,suspension 1 spray intranasal DAILY PRN (Reason: allergy symptoms) furosemide 40 mg tablet See Rx Instructions PO BID Rx Instructions: 2 morning, 1 evening orally twice a day; acetaminophen 325 mg tablet 650 mg PO Q4H PRN alfuzosin 10 mg tablet extended release 24 hr 10 mg PO DAILY Rx Instructions: administer after the same meal each day ascorbic acid (vitamin C) 500 mg tablet 500 mg PO DAILY cyclobenzaprine 10 mg tablet 10 mg PO TID isosorbide mononitrate 30 mg tablet extended release 24 hr 30 mg PO DAILY metolazone 2.5 mg tablet 2.5 mg PO 3XW omeprazole 20 mg tablet,delayed release (DR/EC) 20 mg PO DAILY potassium chloride 10 mEq tablet extended release 30 meq PO DAILY ondansetron 4 mg tablet,disintegrating 4 mg PO Q8H prednisone 10 mg tablet 10 mg PO DAILY propranolol 20 mg tablet 20 mg PO DAILY tramadol 50 mg tablet 50 mg PO DAILY PRN vitamin B complex Tablet 1 tab PO DAILY trazodone 50 mg tablet 50 mg PO BEDTIME PRN vit C,E,Zn,Uk-sbuuv6-lzu-zeax 250-2.5-0.5 mg capsule 2 cap PO DAILY [id number]-pqrskrcomm-HC Ointment 1 ea topical DAILY PRN warfarin 5 mg tablet See Rx Instructions .ROUTE .COMPLEX Label Comments: patient states takes in the morning Rx Instructions: 5mg MWF and 2.5mg all other days, or as directed. carvedilol 25 mg Tablet 12.5 mg PO DAILY ferrous sulfate 325 mg (65 mg iron) Tablet 325 mg PO BID nitroglycerin [Nitrostat] 0.4 mg Tablet, Sublingual 0.4 mg SUBLINGUAL Q5-15M PRN (Reason: Chest Pain) folic acid 1 mg Tablet 1 mg PO DAILY finasteride 5 mg Tablet 5 mg PO DAILY loratadine 10 mg Tablet 10 mg PO DAILY cholecalciferol (vitamin D3) [Vitamin D3] 2,000 unit Capsule 2,000 unit PO DIRECTED aspirin 81 MG tablet,delayed release (DR/EC) 81 mg PO DAILY eplerenone 25 mg Tablet 25 mg PO DAILY Rx Instructions: Takes 1/2 tab Referrals: Barrera Roth MD [Primary Care Provider] - Visit Report Forms: Patient Portal/API
[2022-04-26 01:15] VITALS: BP 105/59; PULSE 58; RESP 14; O2SAT 99
== END 2022-04-26 01:16 | disposition home or self-care (01) ==
PROVIDERS: Emergency Provider Emergency Medicine; PCP Internal Medicine
DX: K40.90 Unilateral inguinal hernia, without obstruction or gangrene, not specified as recurrent (principal)
CPT/HCPCS: 99281

== ENCOUNTER 2022-04-29 19:23 | Emergency (ER) | payer MEDICARE, OTHER, SELFPAY ==
[2022-02-14 14:37] VITALS: BMI 30.9
[2022-04-29 19:27] VITALS: BP 184/84; PULSE 67; RESP 18; TEMP 35.5; O2SAT 97; BMI 25.2
--- NOTE | 2022-04-29 21:16 | ED.GENADULT ---
HPI - General Adult General Chief complaint: Abdominal Pain Stated complaint: Acute hernia Time Seen by Provider: 04/29/22 21:00 Source: patient Mode of arrival: Ambulatory Limitations: no limitations History of Present Illness HPI narrative: Patient is an 81-year-old male with a known right inguinal hernia that is scheduled to see General surgery in 1 week. I evaluated him here in the emergency department a couple days ago and is discharged home because the hernia was reduced and he was no longer having any discomfort. He returns to the emergency department today because he states that today the hernia once again protruded and was causing him quite a bit of discomfort. He tried to push it back in was unable to. Since arriving in the emergency department lying down on the stretcher the hernia has reduced in he is again no longer having any discomfort. Since his last visit and today it has protruded several times but was able to easily reduce on its own. He denies any abdominal pain or urinary symptoms. Related Data Home Medications Medication Instructions Recorded Confirmed albuterol sulfate 90 mcg/actuation 2 puff INH PRN PRN Shortness Of 03/22/17 04/24/22 aerosol inhaler (Proventil HFA) Breath ##0 mesalamine 500 mg capsule,extended 1,000 mg PO BID ##0 03/24/17 04/24/22 release (Pentasa) calcium carbonate 500 mg-vitamin 3 tab PO DAILY ##0 03/31/17 04/24/22 D3 2.5 mcg (100 unit) chewable tablet aspirin 81 mg tablet,delayed 81 mg PO DAILY 05/18/18 04/24/22 release carvedilol 25 mg tablet 12.5 mg PO DAILY 05/18/18 04/24/22 cholecalciferol (vitamin D3) 50 2,000 unit PO DIRECTED 05/18/18 04/24/22 mcg (2,000 unit) capsule (Vitamin D3) eplerenone 25 mg tablet 25 mg PO DAILY 05/18/18 04/24/22 ferrous sulfate 325 mg (65 mg 325 mg PO BID 05/18/18 04/24/22 iron) tablet finasteride 5 mg tablet 5 mg PO DAILY 05/18/18 04/24/22 folic acid 1 mg tablet 1 mg PO DAILY 05/18/18 04/24/22 loratadine 10 mg tablet 10 mg PO DAILY 05/18/18 04/24/22 nitroglycerin 0.4 mg sublingual 0.4 mg sublingual Q5-15M PRN Chest 05/18/18 04/24/22 tablet (Nitrostat) Pain simvastatin 40 mg tablet 20 mg PO BEDTIME 12/07/21 04/24/22 warfarin 5 mg tablet See Rx Instructions .Route .COMPLEX 01/08/22 04/24/22 fluticasone propionate 50 1 spray intranasal DAILY PRN 02/07/22 04/24/22 mcg/actuation nasal allergy symptoms spray,suspension furosemide 40 mg tablet See Rx Instructions PO BID 02/07/22 04/24/22 acetaminophen 325 mg tablet 650 mg PO Q4H PRN 04/24/22 04/24/22 alfuzosin 10 mg tablet,extended 10 mg PO DAILY 04/24/22 04/24/22 release 24 hr ascorbic acid (vitamin C) 500 mg 500 mg PO DAILY 04/24/22 04/24/22 tablet cyclobenzaprine 10 mg tablet 10 mg PO TID 04/24/22 04/24/22 isosorbide mononitrate 30 mg 30 mg PO DAILY 04/24/22 04/24/22 tablet,extended release 24 hr metolazone 2.5 mg tablet 2.5 mg PO 3XW 04/24/22 04/24/22 neomycin-polymyxin 1 ea topical DAILY PRN 04/24/22 04/24/22 S-czjjzmarod-lbtnolvwpzuxme top ointment omeprazole 20 mg tablet,delayed 20 mg PO DAILY 04/24/22 04/24/22 release ondansetron 4 mg disintegrating 4 mg PO Q8H 04/24/22 04/24/22 tablet potassium chloride 10 mEq 30 meq PO DAILY 04/24/22 04/24/22 tablet,extended release prednisone 10 mg tablet 10 mg PO DAILY 04/24/22 04/24/22 propranolol 20 mg tablet 20 mg PO DAILY 04/24/22 04/24/22 tramadol 50 mg tablet 50 mg PO DAILY PRN 04/24/22 04/24/22 trazodone 50 mg tablet 50 mg PO BEDTIME PRN 04/24/22 04/24/22 vit 2 cap PO DAILY 04/24/22 04/24/22 C,E,zinc,Qy-trfba-0-lutein-zeaxanthin 250 mg-2.5 mg-0.5 mg capsule vitamin B complex 1 tab PO DAILY 04/24/22 04/24/22 Allergies Allergy/AdvReac Type Severity Reaction Status Date / Time ibuprofen Allergy Mild NOT GOOD Verified 04/24/22 13:05 FOR STOMACH BLEEDING iodine Allergy Mild UNKNOWN Verified 04/24/22 13:05 Sulfa (Sulfonamide Allergy Mild BURNED A Verified 04/24/22 13:05 Antibiotics) HOLE THRU INTESTINES thallium-201 Allergy Mild BREAKS OUT Verified 04/24/22 13:05 IN BLOTCHES AND ITCHING terazosin Allergy Hypotension Verified 04/24/22 13:05 spironolactone AdvReac Verified 04/24/22 13:05 Review of Systems Gastrointestinal Gastrointestinal: Reports system reviewed and no additional complaints, except as documented Genitourinary Genitourinary: Reports system reviewed and no additional complaints, except as documented Patient History Medical History Asthma BPH w urinary obs/LUTS Chicken pox Chronic anticoagulation Chronic atrial fibrillation Chronic diastolic CHF (congestive heart failure), NYHA class 1 Colon polyps Coronary artery disease Crohn's disease Diverticular disease Essential hypertension Fractures Hearing loss Hemorrhoid History of colonic polyps History of urinary incontinence (~2018) Measles Mixed hyperlipidemia Mumps Myocardial infarction Obesity Osteoarthritis Positive PPD Primary osteoarthritis involving multiple joints Pulmonary hypertension Right inguinal hernia Tinnitus Vision disorder Surgical History Anesthesia H/O mitral valve replacement (~03/2017) Family History Mother Congestive heart failure Father Coronary artery disease Social History household members: spouse Smoking Status: Never smoker substance use type: does not use Type(s) of exercise: walking frequency: daily Smoking Status: Never smoker alcohol intake frequency: holidays/special occasions only Substance Use Type: does not use Exam Initial Vital Signs Initial Vital Signs: Vital Signs Temperature 96 F L 04/29/22 19:27 Pulse Rate 67 04/29/22 19:27 Respiratory Rate 18 04/29/22 19:27 Blood Pressure 184/84 H 04/29/22 19:27 Pulse Oximetry 97 04/29/22 19:27 Oxygen Delivery Method 04/29/22 19:27 Resp Effort & Inspection: normal respiratory effort GI Other: No inguinal hernia felt. No masses felt in the right inguinal region. No abdominal tenderness. General: bimanual renal exam normal bilaterally Testes: normal Skin General: no rashes or lesions noted Course Vital Signs Vital signs: Vital Signs - 8 hr 04/29/22 19:27 Temperature 96 F L Pulse Rate 67 Respiratory Rate 18 Blood Pressure 184/84 H Pulse Oximetry 97 Oxygen Delivery Method Room Air Medical Decision Making MDM Narrative Medical decision making narrative: I did discuss the case with Dr. Santos on-call with General surgery who stated that since the hernia has reduced on its own the repair should be done as an outpatient. I did e-mail the information to Dr. Santos who will have his office contact the patient to have him evaluated sometime this week. I did discuss this with the patient as well. He expressed understanding of this. He will return to the emergency department if symptoms return/worsen. Discharge Plan Departure Patient Disposition: Home Clinical Impression: Right inguinal hernia Activity Restrictions/Additional Instructions: I did discuss your case with Dr. Santos. He is going to work with his clinic staff and also the surgery schedule to get your appointment moved up. Tomorrow late morning/early afternoon contact his office and they will most likely see you in the clinic in the next couple days. Until then return to the emergency department for any new or worsening symptoms like we discussed. Prescriptions: No Action albuterol sulfate [Proventil HFA] 90 MCG/PUFF HFA aerosol inhaler 2 puff INH PRN PRN (Reason: Shortness Of Breath) Qty: 0 Pentasa 500 MG capsule, extended release 1,000 mg PO BID Qty: 0 calcium carbonate-vitamin D3 500 mg-2.5 mcg (100 unit) Tablet,Chewable 3 tab PO DAILY Qty: 0 simvastatin 40 mg tablet 20 mg PO BEDTIME fluticasone propionate 50 mcg/actuation spray,suspension 1 spray intranasal DAILY PRN (Reason: allergy symptoms) furosemide 40 mg tablet See Rx Instructions PO BID Rx Instructions: 2 morning, 1 evening orally twice a day; acetaminophen 325 mg tablet 650 mg PO Q4H PRN alfuzosin 10 mg tablet extended release 24 hr 10 mg PO DAILY Rx Instructions: administer after the same meal each day ascorbic acid (vitamin C) 500 mg tablet 500 mg PO DAILY cyclobenzaprine 10 mg tablet 10 mg PO TID isosorbide mononitrate 30 mg tablet extended release 24 hr 30 mg PO DAILY metolazone 2.5 mg tablet 2.5 mg PO 3XW omeprazole 20 mg tablet,delayed release (DR/EC) 20 mg PO DAILY potassium chloride 10 mEq tablet extended release 30 meq PO DAILY ondansetron 4 mg tablet,disintegrating 4 mg PO Q8H prednisone 10 mg tablet 10 mg PO DAILY propranolol 20 mg tablet 20 mg PO DAILY tramadol 50 mg tablet 50 mg PO DAILY PRN vitamin B complex Tablet 1 tab PO DAILY trazodone 50 mg tablet 50 mg PO BEDTIME PRN vit C,E,Zn,Kb-whaym2-rmw-zeax 250-2.5-0.5 mg capsule 2 cap PO DAILY mnnak-ejgzhmyktW-cxfawezttu-HC Ointment 1 ea topical DAILY PRN warfarin 5 mg tablet See Rx Instructions .ROUTE .COMPLEX Label Comments: patient states takes in the morning Rx Instructions: 5mg MWF and 2.5mg all other days, or as directed. carvedilol 25 mg Tablet 12.5 mg PO DAILY ferrous sulfate 325 mg (65 mg iron) Tablet 325 mg PO BID nitroglycerin [Nitrostat] 0.4 mg Tablet, Sublingual 0.4 mg SUBLINGUAL Q5-15M PRN (Reason: Chest Pain) folic acid 1 mg Tablet 1 mg PO DAILY finasteride 5 mg Tablet 5 mg PO DAILY loratadine 10 mg Tablet 10 mg PO DAILY cholecalciferol (vitamin D3) [Vitamin D3] 2,000 unit Capsule 2,000 unit PO DIRECTED aspirin 81 MG tablet,delayed release (DR/EC) 81 mg PO DAILY eplerenone 25 mg Tablet 25 mg PO DAILY Rx Instructions: Takes 1/2 tab Referrals: Silas Santos MD [Physician] - Barrera Roth MD [Primary Care Provider] - Visit Report Forms: Patient Portal/API
== END 2022-04-29 22:10 | disposition home or self-care (01) ==
PROVIDERS: Emergency Provider Emergency Medicine; PCP Internal Medicine
DX: K40.90 Unilateral inguinal hernia, without obstruction or gangrene, not specified as recurrent (principal)
CPT/HCPCS: 99281

== ENCOUNTER 2022-05-02 22:49 | Emergency (ER) | payer MEDICARE, OTHER, SELFPAY ==
[2022-02-14 14:37] VITALS: BMI 30.9
[2022-05-02 22:59] VITALS: BP 127/71; PULSE 64; RESP 18; TEMP 36.4; O2SAT 95
--- NOTE | 2022-05-02 23:11 | ED.MALEGU ---
HPI - Male Genitourinary General Chief complaint: Urogenital-Male Stated complaint: urinating blood/clots on blood thinners Time Seen by Provider: 05/02/22 23:01 History of Present Illness HPI Narrative: Patient here for bleeding from the penis. Started today. Patient is on warfarin for AFib. Patient uses a external urinary catheter. States it filled up today and forgot to empty it. He went to empty it today and noticed bleeding from the tip of the penis. Does not feel bladder fullness. Still able to urinate. It is bright red blood in the urine bag. We were able to remove it. Currently applying pressure to the glans penis. It does appear to be bleeding from the distal urethra. Denies any pain. Denies any injury to the area. He does have a urologist. Related Data Home Medications Medication Instructions Recorded Confirmed albuterol sulfate 90 mcg/actuation 2 puff INH PRN PRN Shortness Of 03/22/17 05/01/22 aerosol inhaler (Proventil HFA) Breath ##0 mesalamine 500 mg capsule,extended 1,000 mg PO BID ##0 03/24/17 05/01/22 release (Pentasa) calcium carbonate 500 mg-vitamin 3 tab PO DAILY ##0 03/31/17 05/01/22 D3 2.5 mcg (100 unit) chewable tablet aspirin 81 mg tablet,delayed 81 mg PO DAILY 05/18/18 05/01/22 release carvedilol 25 mg tablet 12.5 mg PO DAILY 05/18/18 05/01/22 cholecalciferol (vitamin D3) 50 2,000 unit PO DIRECTED 05/18/18 05/01/22 mcg (2,000 unit) capsule (Vitamin D3) eplerenone 25 mg tablet 25 mg PO DAILY 05/18/18 05/01/22 ferrous sulfate 325 mg (65 mg 325 mg PO BID 05/18/18 05/01/22 iron) tablet finasteride 5 mg tablet 5 mg PO DAILY 05/18/18 05/01/22 folic acid 1 mg tablet 1 mg PO DAILY 05/18/18 05/01/22 loratadine 10 mg tablet 10 mg PO DAILY 05/18/18 05/01/22 nitroglycerin 0.4 mg sublingual 0.4 mg sublingual Q5-15M PRN Chest 05/18/18 05/01/22 tablet (Nitrostat) Pain simvastatin 40 mg tablet 20 mg PO BEDTIME 12/07/21 05/01/22 warfarin 5 mg tablet See Rx Instructions .Route .COMPLEX 01/08/22 05/01/22 fluticasone propionate 50 1 spray intranasal DAILY PRN 02/07/22 05/01/22 mcg/actuation nasal allergy symptoms spray,suspension furosemide 40 mg tablet See Rx Instructions PO BID 02/07/22 05/01/22 acetaminophen 325 mg tablet 650 mg PO Q4H PRN 04/24/22 05/01/22 alfuzosin 10 mg tablet,extended 10 mg PO DAILY 04/24/22 05/01/22 release 24 hr ascorbic acid (vitamin C) 500 mg 500 mg PO DAILY 04/24/22 05/01/22 tablet cyclobenzaprine 10 mg tablet 10 mg PO TID 04/24/22 05/01/22 isosorbide mononitrate 30 mg 30 mg PO DAILY 04/24/22 05/01/22 tablet,extended release 24 hr metolazone 2.5 mg tablet 2.5 mg PO 3XW 04/24/22 05/01/22 neomycin-polymyxin 1 ea topical DAILY PRN 04/24/22 05/01/22 G-yhctazwkxg-rraikjlvhbqjvm top ointment omeprazole 20 mg tablet,delayed 20 mg PO DAILY 04/24/22 05/01/22 release ondansetron 4 mg disintegrating 4 mg PO Q8H 04/24/22 05/01/22 tablet potassium chloride 10 mEq 30 meq PO DAILY 04/24/22 05/01/22 tablet,extended release prednisone 10 mg tablet 10 mg PO DAILY 04/24/22 05/01/22 propranolol 20 mg tablet 20 mg PO DAILY 04/24/22 05/01/22 tramadol 50 mg tablet 50 mg PO DAILY PRN 04/24/22 05/01/22 trazodone 50 mg tablet 50 mg PO BEDTIME PRN 04/24/22 05/01/22 vit 2 cap PO DAILY 04/24/22 05/01/22 C,E,zinc,Hp-ztach-2-lutein-zeaxanthin 250 mg-2.5 mg-0.5 mg capsule vitamin B complex 1 tab PO DAILY 04/24/22 05/01/22 Allergies Allergy/AdvReac Type Severity Reaction Status Date / Time ibuprofen Allergy Mild NOT GOOD Verified 05/01/22 15:52 FOR STOMACH BLEEDING iodine Allergy Mild UNKNOWN Verified 05/01/22 15:52 Sulfa (Sulfonamide Allergy Mild BURNED A Verified 05/01/22 15:52 Antibiotics) HOLE THRU INTESTINES thallium-201 Allergy Mild BREAKS OUT Verified 05/01/22 15:52 IN BLOTCHES AND ITCHING terazosin Allergy Hypotension Verified 05/01/22 15:52 spironolactone AdvReac Verified 05/01/22 15:52 Review of Systems Review of Systems Narrative: GENERAL: Denies chills, fatigue, malaise, fever, sweats. HEENT: Denies sinus pain, ear pain, sore throat RESPIRATORY: Denies dyspnea, cough CARDIOVASCULAR: Denies chest pain, palpitations GASTROINTESTINAL: Denies nausea, vomiting, abdominal pain : Denies dysuria, frequency, positive hematuria MUSCULOSKELETAL: denies muscle or bony pain SKIN: Denies rash, skin lesions NEUROLOGIC: Denies weakness, numbness ROS Unobtainable: All systems reviewed & are unremarkable except as noted in HPI and below Patient History Medical History Asthma BPH w urinary obs/LUTS Chicken pox Chronic anticoagulation Chronic atrial fibrillation Chronic diastolic CHF (congestive heart failure), NYHA class 1 Colon polyps Coronary artery disease Crohn's disease Diverticular disease Essential hypertension Fractures Hearing loss Hemorrhoid History of colonic polyps History of urinary incontinence (~2018) Measles Mixed hyperlipidemia Mumps Myocardial infarction Obesity Osteoarthritis Positive PPD Primary osteoarthritis involving multiple joints Pulmonary hypertension Right inguinal hernia Tinnitus Vision disorder Surgical History Anesthesia H/O mitral valve replacement (~03/2017) Family History Mother Congestive heart failure Father Coronary artery disease Social History household members: spouse Smoking Status: Never smoker substance use type: does not use Type(s) of exercise: walking frequency: daily Smoking Status: Never smoker alcohol intake frequency: holidays/special occasions only Substance Use Type: does not use Exam Initial Vital Signs Initial Vital Signs: Vital Signs Temperature 97.6 F 05/02/22 22:59 Pulse Rate 64 10/27/22 22:59 Respiratory Rate 18 05/02/22 22:59 Blood Pressure 127/71 05/02/22 22:59 Pulse Oximetry 95 05/02/22 22:59 Oxygen Delivery Method 05/02/22 22:59 Course Course Course Narrative: No new issues during course of stay Orders Ordered: ED Orders 05/02/22 23:17 CBC Auto Diff [Complete Blood Count AUTO DIFF] Stat PT [Prothrombin Time INR] Stat PTT [Partial Thromboplastin Time] Stat Reevaluation(s) Reevaluation #1: On insertion of Erwin catheter in the bladder. There was no no blood in the urine/bladder. However, slight blood oozing at the tip of the penis/meatus on the catheter Time: 23:40 Reevaluation #2: Coban was on and use for external pressure on the penis. It was removed at time of discharge. There is no bleeding anymore. Patient desires discharge home. Follow up instructions given. He does have a urologist that he states will call tomorrow morning Time: 00:52 Consultations Consultation #1: Spoke with Urology on-call dr baldwin, recommends placing indwelling catheter for internal pressure to for hemostasis. If not improving may external pressure with a wrap around the penis. Patient to go home with Erwin catheter. He can follow up with his urologist. Vital Signs Vital signs: Vital Signs - 8 hr 05/02/22 22:59 Temperature 97.6 F Pulse Rate 64 Respiratory Rate 18 Blood Pressure 127/71 Pulse Oximetry 95 Oxygen Delivery Method Room Air MDM - Male Genitourinary Differential Diagnosis Differential diagnosis: Likely urinary tract infection and other (Urethral injury) Lab Data Result diagrams: 05/02/22 23:17 Labs: Lab Results 05/02/22 05/02/22 Range/Units 23:17 23:17 WBC 4.3 L (4.5-11.0) X10^3/uL RBC 3.85 L (4.5-5.9) X10^6/uL Hgb 10.9 L (13.5-17.5) g/dL Hct 33.1 L (41-53) % MCV 86.1 (80-100) fL MCH 28.4 (26-34) PG MCHC 32.9 (30-36) % RDW 15.7 H (11.6-14.8) % Plt Count 139 L (150-400) X10^3/uL Neut % (Auto) 56.4 (50-75) % Lymph % (Auto) 23.8 L (25-40) % [place] % (Auto) 16.5 H (3-14) % Eos % (Auto) 1.9 L (2-4) % Baso % (Auto) 1.4 (0-2) % Neut # (Auto) 2500 (8922-4699) /uL Lymph # (Auto) 1000 L (4430-9637) /uL [place] # (Auto) 700 (0-900) /uL Eos # (Auto) 100 (0-450) /uL Baso # (Auto) 100 (0-100) /uL PT 28.6 H (10.1-12.7) SECONDS INR 2.5 H (0.9-1.3) APTT 39 H (26-36) SECONDS MDM Narrative Medical decision making narrative: Appropriate for discharge home. Blood likely from urethral irritation. Symptoms did improve with internal pressure from Erwin catheter. Catheter instructions provided for patient. Patient does have a urologist to follow up with. Patient comfortable with Erwin catheter care at home. Patient will hold on taking warfarin today and tomorrow and resume on Friday. Return precautions reviewed with him. He desires discharge home Discharge Plan Departure Patient Disposition: Home Clinical Impression: Hematuria Instructions: How to Care for Your Erwin Catheter -- Male, DI for Hematuria Activity Restrictions/Additional Instructions: Please do not take your Coumadin/warfarin tomorrow. May resume on Friday. The following day. Please call your urology office tomorrow for office re-evaluation next week. You will need to have it removed in their office. Please follow Erwin catheter instructions demonstrated here. Return if worse if any questions or concerns. Return if any bleeding. Prescriptions: No Action albuterol sulfate [Proventil HFA] 90 MCG/PUFF HFA aerosol inhaler 2 puff INH PRN PRN (Reason: Shortness Of Breath) Qty: 0 Pentasa 500 MG capsule, extended release 1,000 mg PO BID Qty: 0 calcium carbonate-vitamin D3 500 mg-2.5 mcg (100 unit) Tablet,Chewable 3 tab PO DAILY Qty: 0 simvastatin 40 mg tablet 20 mg PO BEDTIME fluticasone propionate 50 mcg/actuation spray,suspension 1 spray intranasal DAILY PRN (Reason: allergy symptoms) furosemide 40 mg tablet See Rx Instructions PO BID Rx Instructions: 2 morning, 1 evening orally twice a day; acetaminophen 325 mg tablet 650 mg PO Q4H PRN alfuzosin 10 mg tablet extended release 24 hr 10 mg PO DAILY Rx Instructions: administer after the same meal each day ascorbic acid (vitamin C) 500 mg tablet 500 mg PO DAILY cyclobenzaprine 10 mg tablet 10 mg PO TID isosorbide mononitrate 30 mg tablet extended release 24 hr 30 mg PO DAILY metolazone 2.5 mg tablet 2.5 mg PO 3XW omeprazole 20 mg tablet,delayed release (DR/EC) 20 mg PO DAILY potassium chloride 10 mEq tablet extended release 30 meq PO DAILY ondansetron 4 mg tablet,disintegrating 4 mg PO Q8H prednisone 10 mg tablet 10 mg PO DAILY propranolol 20 mg tablet 20 mg PO DAILY tramadol 50 mg tablet 50 mg PO DAILY PRN vitamin B complex Tablet 1 tab PO DAILY trazodone 50 mg tablet 50 mg PO BEDTIME PRN vit C,E,Zn,Bz-lfumg3-qsl-zeax 250-2.5-0.5 mg capsule 2 cap PO DAILY puiam-jzlhuqkffE-avjqncrfah-HC Ointment 1 ea topical DAILY PRN warfarin 5 mg tablet See Rx Instructions .ROUTE .COMPLEX Label Comments: patient states takes in the morning Rx Instructions: 5mg MWF and 2.5mg all other days, or as directed. carvedilol 25 mg Tablet 12.5 mg PO DAILY ferrous sulfate 325 mg (65 mg iron) Tablet 325 mg PO BID nitroglycerin [Nitrostat] 0.4 mg Tablet, Sublingual 0.4 mg SUBLINGUAL Q5-15M PRN (Reason: Chest Pain) folic acid 1 mg Tablet 1 mg PO DAILY finasteride 5 mg Tablet 5 mg PO DAILY loratadine 10 mg Tablet 10 mg PO DAILY cholecalciferol (vitamin D3) [Vitamin D3] 2,000 unit Capsule 2,000 unit PO DIRECTED aspirin 81 MG tablet,delayed release (DR/EC) 81 mg PO DAILY eplerenone 25 mg Tablet 25 mg PO DAILY Rx Instructions: Takes 1/2 tab Referrals: Barrera Roth MD [Primary Care Provider] - Visit Report Forms: Patient Portal/API
[2022-05-02 23:25] LABS: Add Manual Diff / Slide Review NO; Basophils Absolute Auto 100 /uL (0-100); Basophils Percent Auto 1.4 % (0-2); Eosinophils Absolute Auto 100 /uL (0-450); Eosinophils Percent Auto 1.9 % (2-4); Hematocrit 33.1 % (41-53); Hemoglobin 10.9 g/dL (13.5-17.5); Lymphocytes Absolute Auto 1000 /uL (1100-4500); Lymphocytes Percent Auto 23.8 % (25-40); Mean Corpuscular HGB Conc 32.9 % (30-36); Mean Corpuscular Hemoglobin 28.4 PG (26-34); Mean Corpuscular Volume 86.1 fL (80-100); Monocytes Absolute Auto 700 /uL (0-900); Monocytes Percent Auto 16.5 % (3-14); Neutrophils Absolute Auto 2500 /uL (1500-7000); Neutrophils Percent Auto 56.4 % (50-75); Platelet Count 139 X10^3/uL (150-400); Red Blood Cell Count 3.85 X10^6/uL (4.5-5.9); Red Cell Distribution Width 15.7 % (11.6-14.8); White Blood Cell Count 4.3 X10^3/uL (4.5-11.0)
[2022-05-02 23:35] LABS: INR 2.5 (0.9-1.3); Prothrombin Time 28.6 SECONDS (10.1-12.7)
[2022-05-02 23:38] LABS: PTT Partial Thromboplastin Tim 39 SECONDS (26-36)
== END 2022-05-03 01:00 | disposition home or self-care (01) ==
PROVIDERS: Emergency Provider Emergency Medicine; PCP Internal Medicine
DX: R31.9 Hematuria, unspecified (principal)
CPT/HCPCS: 85025; 85610; 85730; 99283

== ENCOUNTER → 2022-05-10 13:13 | Outpatient (CLI) | payer MEDICARE, OTHER, SELFPAY ==
[2022-02-14 14:37] VITALS: BMI 30.9
[2022-05-10 14:22] LABS: INR 1.4 (0.9-1.3); Prothrombin Time 16.1 SECONDS (10.1-12.7)
== END ==
PROVIDERS: PCP Internal Medicine; Referring Provider Internal Medicine; Visit Provider Internal Medicine
DX: I48.20 Chronic atrial fibrillation, unspecified (principal); Z79.01 Long term (current) use of anticoagulants
CPT/HCPCS: 36415; 85610

== ENCOUNTER → 2022-05-23 10:58 | Outpatient (CLI) | payer MEDICARE, OTHER, SELFPAY ==
[2022-02-14 14:37] VITALS: BMI 30.9
[2022-05-23 12:38] LABS: COVID19 -Nasal RAPID Negative (Negative)
== END ==
PROVIDERS: PCP Internal Medicine; Visit Provider Surgery
DX: Z20.822 Contact with and (suspected) exposure to COVID-19 (principal); Z01.812 Encounter for preprocedural laboratory examination
CPT/HCPCS: 87635; C9803

== ENCOUNTER 2022-05-24 10:45 | Day surgery (SDC) | payer MEDICARE, OTHER, SELFPAY ==
[2022-02-14 14:37] VITALS: BMI 30.9
[2022-05-20 08:43] VITALS: BMI 25.2
[2022-05-24] VITALS (8 sets, daily range): BP systolic 102–115; BP diastolic 63–70; PULSE 53–55; RESP 11–20; TEMP 36.2–37; O2SAT 92–98; BMI 25.2
--- NOTE | 2022-05-24 11:49 | P.HP_ITS ---
History of Present Illness History of Present Illness Date Patient Seen: 05/24/22 Time Patient Seen: 11:49 Chief complaint: OPEN RIH REPAIR Narrative: Destin is here for his inguinal hernia repair. See prior office note for details. He did see we his transportation program director's on Friday but we have not received any formal correspondence from them yet. He states that he had a stress test and he thinks it was normal. He has not stopped his Coumadin. Patient History Medical History (Updated 05/20/22 @ 12:32 by Uyen Wellington RN) Asthma BPH w urinary obs/LUTS Chicken pox Chronic anticoagulation Chronic atrial fibrillation Chronic diastolic CHF (congestive heart failure), NYHA class 1 Colon polyps Coronary artery disease Crohn's disease Diverticular disease Easy bruisability Essential hypertension Fractures Hearing loss Hemorrhoid History of colonic polyps History of urinary incontinence (~2018) Measles Mixed hyperlipidemia Mumps Myocardial infarction Obesity Osteoarthritis Positive PPD Primary osteoarthritis involving multiple joints Pulmonary hypertension Right inguinal hernia Tinnitus Vision disorder Surgical History (Updated 05/20/22 @ 12:20 by Uyen Wellington RN) Anesthesia H/O mitral valve replacement (~03/2017) Hx of heart artery stent (~1994) Family & Social History Family History Mother Congestive heart failure Father Coronary artery disease Social History: household members spouse Tobacco & Substance use: Smoking Status Never smoker alcohol intake frequency holiday/special occasion Substance Use Type does not use Meds Home Medications and Allergies Home Medications Medication Instructions Recorded Confirmed Type albuterol sulfate 90 mcg/actuation 2 puff INH PRN PRN Shortness Of 03/22/17 05/20/22 History aerosol inhaler (Proventil HFA) Breath ##0 mesalamine 500 mg capsule,extended 1,000 mg PO BID ##0 03/24/17 05/20/22 History release (Pentasa) calcium carbonate 500 mg-vitamin 3 tab PO DAILY ##0 03/31/17 05/20/22 History D3 2.5 mcg (100 unit) chewable tablet aspirin 81 mg tablet,delayed 81 mg PO DAILY 05/18/18 05/20/22 History release carvedilol 25 mg tablet 12.5 mg PO DAILY 05/18/18 05/20/22 History cholecalciferol (vitamin D3) 50 2,000 unit PO DIRECTED 05/18/18 05/20/22 History mcg (2,000 unit) capsule (Vitamin D3) eplerenone 25 mg tablet 25 mg PO DAILY 05/18/18 05/20/22 History ferrous sulfate 325 mg (65 mg 325 mg PO BID 05/18/18 05/20/22 History iron) tablet finasteride 5 mg tablet 5 mg PO DAILY 05/18/18 05/20/22 History folic acid 1 mg tablet 1 mg PO DAILY 05/18/18 05/20/22 History loratadine 10 mg tablet 10 mg PO DAILY 05/18/18 05/20/22 History nitroglycerin 0.4 mg sublingual 0.4 mg sublingual Q5-15M PRN Chest 05/18/18 05/20/22 History tablet (Nitrostat) Pain simvastatin 40 mg tablet 20 mg PO BEDTIME 12/07/21 05/20/22 History warfarin 5 mg tablet See Rx Instructions .Route .COMPLEX 01/08/22 05/20/22 History fluticasone propionate 50 1 spray intranasal DAILY PRN 02/07/22 05/20/22 History mcg/actuation nasal allergy symptoms spray,suspension furosemide 40 mg tablet See Rx Instructions PO BID 02/07/22 05/20/22 History acetaminophen 325 mg tablet 650 mg PO Q4H PRN Pain 04/24/22 05/20/22 History alfuzosin 10 mg tablet,extended 10 mg PO DAILY 04/24/22 05/20/22 History release 24 hr ascorbic acid (vitamin C) 500 mg 500 mg PO DAILY 04/24/22 05/20/22 History tablet cyclobenzaprine 10 mg tablet 10 mg PO TID PRN Muscle Spasm 04/24/22 05/20/22 H istory isosorbide mononitrate 30 mg 30 mg PO DAILY 04/24/22 05/20/22 History tablet,extended release 24 hr metolazone 2.5 mg tablet 2.5 mg PO 3XW 04/24/22 05/20/22 History neomycin-polymyxin 1 ea topical DAILY PRN Skin 04/24/22 05/20/22 History V-zymvngqsfi-xuzgjcyvqocdoi top Irritation ointment omeprazole 20 mg tablet,delayed 20 mg PO DAILY 04/24/22 05/20/22 History release ondansetron 4 mg disintegrating 4 mg PO Q8H PRN Nausea 04/24/22 05/20/22 History tablet potassium chloride 10 mEq 30 meq PO DAILY 04/24/22 05/20/22 History tablet,extended release prednisone 10 mg tablet 10 mg PO DAILY 04/24/22 05/01/22 History propranolol 20 mg tablet 20 mg PO DAILY 04/24/22 05/20/22 History tramadol 50 mg tablet 50 mg PO DAILY PRN Pain 04/24/22 05/20/22 History trazodone 50 mg tablet 50 mg PO BEDTIME PRN Sleep 04/24/22 05/20/22 History vit 2 cap PO DAILY 04/24/22 05/20/22 History C,E,zinc,Cz-hrgmj-6-lutein-zeaxanthin 250 mg-2.5 mg-0.5 mg capsule vitamin B complex 1 tab PO DAILY 04/24/22 05/20/22 History Allergies Allergy/AdvReac Type Severity Reaction Status Date / Time ibuprofen Allergy Mild NOT GOOD Verified 05/24/22 11:46 FOR STOMACH BLEEDING iodine Allergy Mild UNKNOWN Verified 05/24/22 11:46 Sulfa (Sulfonamide Allergy Mild BURNED A Verified 05/24/22 11:46 Antibiotics) HOLE THRU INTESTINES thallium-201 Allergy Mild BREAKS OUT Verified 05/24/22 11:46 IN BLOTCHES AND ITCHING terazosin Allergy Hypotension Verified 05/24/22 11:46 spironolactone AdvReac Verified 05/24/22 11:46 Exam Narrative Exam Narrative: Right inguinal hernia Assessment & Plan Assessment and plan (1) Right inguinal hernia: Status: Acute Plan We reviewed the risks and benefits of surgery which are particularly elevated given his cardiac status and the fact that we have not received any formal correspondence from his cardiology team yet. I told him that we could proceed with the open inguinal hernia repair under local and sedation to minimize the risk of cardiac suppression from general anesthesia. Being on Coumadin also increases his risks of bleeding. He understands the risks and wishes to proceed because his hernia is quite symptomatic and he just wants to get it fixed. Time Spent With Patient Critical Care time: I spent a total of [] minutes of critical care time on this patient's care today; this time is exclusive of procedural time.
[2022-05-24] MEDS: CEFAZOLIN 2 GM/100 ML PREMIX 100 ML IV (12:42)
--- NOTE | 2022-05-24 12:59 | SUR.OPER ---
condom catheter in place, draining adequately
--- NOTE | 2022-05-24 12:59 | SUR.OPER ---
Supine on padded OR bed, head on pillow, arms secured on padded arm boards at <90 degrees abduction, legs uncrossed, safety belt at thigh, gel pad to heels
[2022-05-24] MEDS: LIDOCAINE 1% 20 ML INJ (13:26)
[2022-05-24] MEDS: BUPIVACAINE 0.25% (PF) VIAL 30 ML INJ (13:45)
--- NOTE | 2022-05-24 14:01 | P.OP_ITS ---
Operative Date/Time/Diagnoses Date of procedure: 05/24/22 Time of procedure: 14:01 Pre-op diagnosis: Right inguinal hernia Post-op diagnosis: same Procedure & Clinicians Procedure: Open right inguinal hernia repair with mesh Same procedure as scheduled: Yes Surgeon: Silas Santos Anesthesia Type: General Operative Notes Procedure in detail: Preoperative antibiotic was administered. The patient was brought to the operating room and placed on the table in supine position general anesthesia was induced. The right groin was prepped and draped in the normal fashion and a time-out was performed. Roughly 10 mL of local anesthetic were injected into the skin and subcutaneous adipose tissue over the right groin. A 6 cm incision was made over the right inguinal canal. Dissection was carried down through the subcutaneous adipose tissue. We exposed the external oblique aponeurosis in the direction of the fibers. Additional local was injected deep to the aponeurosis. A 15 blade scalpel was used to renate the external oblique aponeurosis. Metzenbaum scissors were used to carefully open the aponeurosis in the direction of the fibers taking care not to injure the underlying ilioinguinal nerve. We completely exposed the inguinal canal. The cord was dissected free from the inguinal ligament and floor of the inguinal canal and the external oblique aponeurosis was dissected off of the internal oblique taking care not to injure the hypogastric nerve. We encircled the cord with a [place] drain for retraction. He had a an indirect defect along with a fatty cord lipoma. We dissected the hernia sac and lipoma free from cord structures and reduced them back into the abdomen. We then placed a polypropylene mesh against the floor of the inguinal canal. The mesh was secured with multiple interrupted 3-0 Prolene sutures to the pubic tubercle and shelving edge of the inguinal ligament as well as to the conjoint tendon medially. We overlapped the tails to recreate an internal ring and secured the medial tail to the inguinal ligament with additional sutures. We injected some more local into the fatty tissue in the inguinal canal and cord. There was a small bleeder just lateral to the internal ring which was dressed with bipolar cautery. We then saw proximal portion of the iliohypogastric nerve which was coursing close to this area and because there was a risk cautery injury to the nerve we decided to amputate the nerve proximally after time-out off with 2-0 Vicryl. We injected some Marcaine into the nerve and allowed it is to retract under some fatty tissue. Finally, we removed the [place] drain and closed the external oblique fascia with a running 3-0 Vicryl suture. Skin was closed with interrupted 3-0 Vicryl dermal sutures and a running 4 Monocryl subcuticular stitch. EBL 5 mL The patient was awakened and brought to recovery room. Post-operative Condition: stable Disposition: PACU
== END 2022-05-24 15:15 | disposition home or self-care (01) ==
PROVIDERS: PCP Internal Medicine; Referring Provider Surgery; Visit Provider Surgery
PROC: (CPT 49505; principal; 2022-05-24 12:30)
DX: K40.90 Unilateral inguinal hernia, without obstruction or gangrene, not specified as recurrent (principal); I11.0 Hypertensive heart disease with heart failure; I50.32 Chronic diastolic (congestive) heart failure; I25.10 Atherosclerotic heart disease of native coronary artery without angina pectoris; Z79.01 Long term (current) use of anticoagulants
CPT/HCPCS: 49505; 85610; 93005; 93010; J0690; J1100; J2405; J2704; J3010

== ENCOUNTER → 2022-06-20 13:54 | Outpatient (CLI) | payer MEDICARE, OTHER, SELFPAY ==
[2022-02-14 14:37] VITALS: BMI 30.9
[2022-06-20 15:13] LABS: INR 1.7 (0.9-1.3); Prothrombin Time 19.9 SECONDS (10.1-12.7)
[2022-06-20 15:36] LABS: BUN Creatinine Ratio 26.5 (6-22); Blood Urea Nitrogen 22 mg/dL (9-20); Calcium 8.8 mg/dL (8.4-10.2); Chloride 83 mmol/L (98-107); Estimated Glomerular Filt Rate > 60 mL/min (>60); Glucose 90 mg/dL (80-110); HEMOLYSIS < 15 (0-50); Sodium 134 mmol/L (137-145)
[2022-06-20 15:44] LABS: NT-proBNP (BNP-Adult 18+) 1770 pg/mL (<450)
[2022-06-20 16:14] LABS: Potassium 2.3 mmol/L (3.4-5.1)
[2022-06-20 16:15] LABS: Carbon Dioxide 40 mmol/L (22-32)
== END ==
PROVIDERS: PCP Internal Medicine; Referring Provider Nurse Practitioner; Visit Provider Nurse Practitioner
DX: I50.32 Chronic diastolic (congestive) heart failure (principal); I48.20 Chronic atrial fibrillation, unspecified; Z98.890 Other specified postprocedural states; Z79.01 Long term (current) use of anticoagulants
CPT/HCPCS: 36415; 80048; 83880; 85610

== ENCOUNTER → 2022-08-14 14:10 | Outpatient (CLI) | payer MEDICARE, OTHER, SELFPAY ==
[2022-02-14 14:37] VITALS: BMI 30.9
[2022-08-14 16:15] LABS: BUN Creatinine Ratio 33.3 (6-22); Blood Urea Nitrogen 26 mg/dL (9-20); Calcium 8.5 mg/dL (8.4-10.2); Chloride 84 mmol/L (98-107); Estimated Glomerular Filt Rate > 60 mL/min (>60); Glucose 88 mg/dL (80-110); HEMOLYSIS < 15 (0-50); Sodium 134 mmol/L (137-145)
[2022-08-14 16:22] LABS: Carbon Dioxide 38 mmol/L (22-32)
== END ==
PROVIDERS: PCP Internal Medicine; Referring Provider Nurse Practitioner; Visit Provider Nurse Practitioner
DX: I50.32 Chronic diastolic (congestive) heart failure (principal); Z98.890 Other specified postprocedural states; I25.10 Atherosclerotic heart disease of native coronary artery without angina pectoris
CPT/HCPCS: 36415; 80048

== ENCOUNTER → 2022-09-06 16:26 | Outpatient (CLI) | payer MEDICARE, OTHER, SELFPAY ==
[2022-02-14 14:37] VITALS: BMI 30.9
[2022-09-06 17:06] LABS: INR 1.3 (0.9-1.3); Prothrombin Time 15.2 SECONDS (10.1-12.7)
== END ==
PROVIDERS: PCP Internal Medicine; Referring Provider Internal Medicine; Visit Provider Internal Medicine
DX: I48.20 Chronic atrial fibrillation, unspecified (principal); Z79.01 Long term (current) use of anticoagulants
CPT/HCPCS: 36415; 85610

== ENCOUNTER 2022-09-09 17:23 | Emergency (ER) | payer MEDICARE, OTHER, SELFPAY ==
[2022-02-14 14:37] VITALS: BMI 30.9
[2022-09-09 17:37] VITALS: BP 130/61; PULSE 66; RESP 16; TEMP 36.3; O2SAT 98
--- NOTE | 2022-09-09 18:05 | PC.NURSE ---
Patient unaware of why he was sent to ER. Dr Roth called to confirm reason patient was sent to ER. PT 15.2/INR 1.5 on 09/06. Reviewed results with Dr Roth. Miscommunication in lab results, Dr Roth was under the impression his INR was 15.2 verses his PT. Patient within therapeutic range. Offered to recheck labs, patient declined. Patient has no complaints.
== END 2022-09-09 18:11 | disposition left against medical advice (07) ==
PROVIDERS: Emergency Provider Emergency Medicine; PCP Internal Medicine
CPT/HCPCS: 99281

== ENCOUNTER → 2022-09-12 14:24 | Outpatient (CLI) | payer MEDICARE, OTHER, SELFPAY ==
[2022-02-14 14:37] VITALS: BMI 30.9
[2022-09-12 15:01] LABS: INR 1.3 (0.9-1.3); Prothrombin Time 15.4 SECONDS (10.1-12.7)
== END ==
PROVIDERS: PCP Internal Medicine; Referring Provider Internal Medicine; Visit Provider Internal Medicine
DX: I48.20 Chronic atrial fibrillation, unspecified (principal); Z79.01 Long term (current) use of anticoagulants
CPT/HCPCS: 36415; 85610

== ENCOUNTER → 2022-09-19 12:34 | Outpatient (CLI) | payer MEDICARE, OTHER, SELFPAY ==
[2022-02-14 14:37] VITALS: BMI 30.9
[2022-09-19 13:36] LABS: INR 1.3 (0.9-1.3); Prothrombin Time 14.9 SECONDS (10.1-12.7)
== END ==
PROVIDERS: PCP Internal Medicine; Referring Provider Internal Medicine; Visit Provider Internal Medicine
DX: I82.409 Acute embolism and thrombosis of unspecified deep veins of unspecified lower extremity (principal)
CPT/HCPCS: 36415; 85610

== ENCOUNTER → 2022-09-26 11:34 | Outpatient (CLI) | payer MEDICARE, OTHER, SELFPAY ==
[2022-02-14 14:37] VITALS: BMI 30.9
[2022-09-26 12:22] LABS: INR 1.6 (0.9-1.3); Prothrombin Time 18.5 SECONDS (10.1-12.7)
== END ==
PROVIDERS: PCP Internal Medicine; Referring Provider Internal Medicine; Visit Provider Internal Medicine
DX: I48.20 Chronic atrial fibrillation, unspecified (principal); Z79.01 Long term (current) use of anticoagulants
CPT/HCPCS: 36415; 85610

== ENCOUNTER 2022-09-30 02:11 | Emergency (ER) | payer MEDICARE, OTHER, SELFPAY ==
[2022-02-14 14:37] VITALS: BMI 30.9
[2022-09-30 02:24] VITALS: BP 125/60; PULSE 65; RESP 18; TEMP 36.6; O2SAT 97; BMI 29.2
--- NOTE | 2022-09-30 02:27 | DI.RAD.S_ITS ---
PROCEDURE: XR CHEST 1V INDICATIONS: eval for PNA TECHNIQUE: One view of the chest was acquired. COMPARISON: [facility], CR, XR CHEST 1V, 02/16/2022, 13:24. FINDINGS: Surgical changes and devices: Atrial appendage clip, valve repair. Lungs and pleura: Lungs are clear. No pleural effusions or pneumothorax. Mediastinum: Mediastinal contours appear normal. Heart size is normal. Bones and chest wall: No suspicious bony lesions. Overlying soft tissues appear unremarkable. IMPRESSION: No evidence acute pulmonary process. Dictated by: Tyler Meraz M.D. on 09/30/2022 at 8:16 Approved by: Tyler Meraz M.D. on 09/30/2022 at 8:17
[2022-09-30 03:01] VITALS: BP 132/82; PULSE 64; RESP 20; TEMP 36.6; O2SAT 95
--- NOTE | 2022-09-30 04:01 | ED.GENADULT ---
HPI - General Adult General Chief complaint: Shortness of Breath/Dyspnea Stated complaint: bronchitis Time Seen by Provider: 09/30/22 02:43 Source: patient Mode of arrival: Ambulatory Limitations: no limitations History of Present Illness HPI narrative: Patient is an 82-year-old male. Known history of coronary artery bypass graft. He denied any history of chronic lung disease although his problem list has a history of asthma, CHF, atrial fibrillation. He is on anticoagulation. He states that he does not think that he is on any diuretics however his medicine list shows that he is on Lasix 40 mg a day. He also has a prescription for albuterol and his medicine list however he denies taking any inhalers. He is here because he states he is had chest congestion and sinus congestion for several weeks. He denies any chest pain. He states that he is not particularly short of breath when he is lying down or when he is moving it is the fact that he is having a cough. It is sometimes productive. He states that tonight he just got into a coughing fit which is why he came into the ER. He has tried joxe-ukq-qicowbm medications. Unsure of the exact name but he states it was a ?syrup?. Related Data Home Medications Medication Instructions Recorded Confirmed albuterol sulfate 90 mcg/actuation 2 puff INH PRN PRN Shortness Of 03/22/17 09/12/22 aerosol inhaler (Proventil HFA) Breath ##0 mesalamine 500 mg capsule,extended 1,000 mg PO BID ##0 03/24/17 09/12/22 release (Pentasa) calcium carbonate 500 mg-vitamin 3 tab PO DAILY ##0 03/31/17 09/12/22 D3 2.5 mcg (100 unit) chewable tablet aspirin 81 mg tablet,delayed 81 mg PO DAILY 05/18/18 09/12/22 release cholecalciferol (vitamin D3) 50 2,000 unit PO DIRECTED 05/18/18 09/12/22 mcg (2,000 unit) capsule (Vitamin D3) eplerenone 25 mg tablet 25 mg PO DAILY 05/18/18 09/12/22 ferrous sulfate 325 mg (65 mg 325 mg PO BID 05/18/18 09/12/22 iron) tablet finasteride 5 mg tablet 5 mg PO DAILY 05/18/18 09/12/22 folic acid 1 mg tablet 1 mg PO DAILY 05/18/18 09/12/22 loratadine 10 mg tablet 10 mg PO DAILY 05/18/18 09/12/22 nitroglycerin 0.4 mg sublingual 0.4 mg sublingual Q5-15M PRN Chest 05/18/18 09/12/22 tablet (Nitrostat) Pain simvastatin 40 mg tablet 20 mg PO BEDTIME 12/07/21 09/12/22 fluticasone propionate 50 1 spray intranasal DAILY PRN 02/07/22 09/12/22 mcg/actuation nasal allergy symptoms spray,suspension furosemide 40 mg tablet See Rx Instructions PO BID 02/07/22 09/12/22 acetaminophen 325 mg tablet 650 mg PO Q4H PRN Pain 04/24/22 09/12/22 alfuzosin 10 mg tablet,extended 10 mg PO DAILY 04/24/22 09/12/22 release 24 hr ascorbic acid (vitamin C) 500 mg 500 mg PO DAILY 04/24/22 09/12/22 tablet cyclobenzaprine 10 mg tablet 10 mg PO TID PRN Muscle Spasm 04/24/22 09/12/22 isosorbide mononitrate 30 mg 30 mg PO DAILY 04/24/22 09/12/22 tablet,extended release 24 hr metolazone 2.5 mg tablet 2.5 mg PO 3XW 04/24/22 09/12/22 neomycin-polymyxin 1 ea topical DAILY PRN Skin 04/24/22 09/12/22 N-pydkliqhwe-gjmumkusbikxle top Irritation ointment omeprazole 20 mg tablet,delayed 20 mg PO DAILY 04/24/22 09/12/22 release ondansetron 4 mg disintegrating 4 mg PO Q8H PRN Nausea 04/24/22 09/12/22 tablet potassium chloride 10 mEq 30 meq PO DAILY 04/24/22 09/12/22 tablet,extended release prednisone 10 mg tablet 10 mg PO DAILY 04/24/22 09/12/22 propranolol 20 mg tablet 20 mg PO DAILY 04/24/22 09/12/22 vit 2 cap PO DAILY 04/24/22 09/12/22 C,E,zinc,Pb-xdsaq-0-lutein-zeaxanthin 250 mg-2.5 mg-0.5 mg capsule vitamin B complex 1 tab PO DAILY 10/19/22 03/09/23 tamsulosin 0.4 mg capsule 0.4 mg PO DAILY 06/13/22 09/12/22 Previous Rx's Medication Instructions Recorded warfarin 5 mg tablet See Rx Instructions .Route 06/17/22 .COMPLEX #90 tabs azithromycin 250 mg tablet 250 mg PO DAILY 4 days #4 tabs 09/30/22 Allergies Allergy/AdvReac Type Severity Reaction Status Date / Time ibuprofen Allergy Mild NOT GOOD Verified 09/12/22 12:33 FOR STOMACH BLEEDING iodine Allergy Mild UNKNOWN Verified 09/12/22 12:33 Sulfa (Sulfonamide Allergy Mild BURNED A Verified 09/12/22 12:33 Antibiotics) HOLE THRU INTESTINES thallium-201 Allergy Mild BREAKS OUT Verified 09/12/22 12:33 IN BLOTCHES AND ITCHING terazosin Allergy Hypotension Verified 09/12/22 12:33 spironolactone AdvReac Verified 09/12/22 12:33 Review of Systems Constitutional Constitutional: Reports system reviewed and no additional complaints, except as documented ENT Ears, Nose, Mouth, and Throat: Reports system reviewed and no additional complaints, except as documented Respiratory Respiratory: Reports system reviewed and no additional complaints, except as documented Gastrointestinal Gastrointestinal: Reports system reviewed and no additional complaints, except as documented Integumentary/Breasts Skin/Breast: Reports system reviewed and no additional complaints, except as documented Neurologic Neurologic: Reports system reviewed and no additional complaints, except as documented Hematologic/Lymphatic On Anticoagulants: Yes Patient History Medical History Asthma BPH w urinary obs/LUTS Chicken pox Chronic anticoagulation Chronic atrial fibrillation Chronic diastolic CHF (congestive heart failure), NYHA class 1 Colon polyps Coronary artery disease Crohn's disease Diverticular disease Easy bruisability Essential hypertension Fractures Hearing loss Hemorrhoid History of colonic polyps History of urinary incontinence (~2018) Measles Mixed hyperlipidemia Mumps Myocardial infarction Obesity Osteoarthritis Positive PPD Primary osteoarthritis involving multiple joints Pulmonary hypertension Right inguinal hernia Tinnitus Vision disorder Surgical History Anesthesia H/O mitral valve replacement (~03/2017) Hx of heart artery stent (~1994) Family History Mother Congestive heart failure Father Coronary artery disease Social History household members: spouse Smoking Status: Never smoker substance use type: does not use Type(s) of exercise: walking frequency: daily Smoking Status: Never smoker alcohol intake frequency: holidays/special occasions only Substance Use Type: does not use Exam Initial Vital Signs Initial Vital Signs: Vital Signs Temperature 98 F 09/30/22 02:24 Pulse Rate 65 09/30/22 02:24 Respiratory Rate 18 09/30/22 02:24 Blood Pressure 125/60 09/30/22 02:24 Pulse Oximetry 97 09/30/22 02:24 Oxygen Delivery Method Room Air 09/30/22 02:24 Const General: cooperative and No ill appearing HENMT Head: normal to inspection and normocephalic Resp Effort & Inspection: normal respiratory effort Auscultation: clear to auscultation bilaterally Cardio Rate: regular rate GI Inspection: non-distended Palpation: soft Neuro General: patient alert and patient awake Extrem General: edema Course Orders Ordered: ED Orders 09/30/22 02:27 XR chest 1V Stat Discontinued Medications Azithromycin (Azithromycin 250 Mg Tablet) 500 mg PO NOW ONE Stop: 09/30/22 04:02 Vital Signs Vital signs: Vital Signs - 8 hr 09/30/22 02:24 09/30/22 03:01 09/30/22 04:07 Temperature 98 F 97.8 F Pulse Rate 65 64 69 Respiratory Rate 18 20 20 Blood Pressure 125/60 132/82 130/61 Pulse Oximetry 97 95 95 Oxygen Delivery Method Room Air Room Air Room Air Medical Decision Making Medical Records Medical records reviewed: Yes I reviewed the patient's medical records. Imaging Data Chest x-ray: Radiologist's Impression: No acute findings MDM Narrative Medical decision making narrative: Patient is afebrile. No respiratory distress. Not tachypneic. Not hypoxic. It does appear that he has chronic lung diseases he does have a prior history of asthma and he does have albuterol and his medicine list although he is not having any wheezing today. He does have a history of heart failure. He does not think that he is on Lasix but does have furosemide on his medicine list. He does have lower extremity swelling but he states this is not any worse than what it has been. Low suspicion for an acute CHF exacerbation. No chest pain. No dyspnea on exertion. No orthopnea. It appears he is having an occasional productive cough. No fevers. He has tried giag-whm-phontxf medications without improvement. Given his age and other comorbidities and length of time he is had symptoms without any improvement with fkef-ifv-prwbbum medicines short course of antibiotics is not unreasonable for this patient. He was given 1st dose here in the emergency department and a prescription was sent to the pharmacy of choice. No indication for admission to the hospital. He expressed understanding and agreement. Discharge Plan Departure Patient Disposition: Home Clinical Impression: Bronchitis Instructions: Cough Activity Restrictions/Additional Instructions: [facility] I gave you your 1st dose of the antibiotics here in the emergency department so your next dose will be Friday10/01/22. Please take them as directed. Continue the rest of your medications as directed. Return to the emergency department for any new symptoms. Prescriptions: New azithromycin 250 mg tablet 250 mg PO DAILY 4 Days Qty: 4 0RF Rx Instructions: start on day 2 of therapy No Action albuterol sulfate [Proventil HFA] 90 MCG/PUFF HFA aerosol inhaler 2 puff INH PRN PRN (Reason: Shortness Of Breath) Qty: 0 mesalamine [Pentasa] 500 MG capsule, extended release 1,000 mg PO BID Qty: 0 calcium carbonate-vitamin D3 500 mg-2.5 mcg (100 unit) Tablet,Chewable 3 tab PO DAILY Qty: 0 warfarin 5 mg tablet See Rx Instructions .ROUTE .COMPLEX Qty: 90 3RF Rx Instructions: 5mg MWF and 2.5mg all other days, or as directed. simvastatin 40 mg tablet 20 mg PO BEDTIME tamsulosin 0.4 mg capsule 0.4 mg PO DAILY fluticasone propionate 50 mcg/actuation spray,suspension 1 spray intranasal DAILY PRN (Reason: allergy symptoms) furosemide 40 mg tablet See Rx Instructions PO BID Rx Instructions: 2 morning, 1 evening orally twice a day; acetaminophen 325 mg tablet 650 mg PO Q4H PRN (Reason: Pain) alfuzosin 10 mg tablet extended release 24 hr 10 mg PO DAILY Rx Instructions: administer after the same meal each day ascorbic acid (vitamin C) 500 mg tablet 500 mg PO DAILY cyclobenzaprine 10 mg tablet 10 mg PO TID PRN (Reason: Muscle Spasm) isosorbide mononitrate 30 mg tablet extended release 24 hr 30 mg PO DAILY metolazone 2.5 mg tablet 2.5 mg PO 3XW omeprazole 20 mg tablet,delayed release (DR/EC) 20 mg PO DAILY potassium chloride 10 mEq tablet extended release 30 meq PO DAILY ondansetron 4 mg tablet,disintegrating 4 mg PO Q8H PRN (Reason: Nausea) prednisone 10 mg tablet 10 mg PO DAILY propranolol 20 mg tablet 20 mg PO DAILY vitamin B complex Tablet 1 tab PO DAILY vit C,E,Zn,My-matem1-lhw-zeax 250-2.5-0.5 mg capsule 2 cap PO DAILY qhxzg-toquvrnqdL-jstovoemin-HC Ointment 1 ea topical DAILY PRN (Reason: Skin Irritation) ferrous sulfate 325 mg (65 mg iron) Tablet 325 mg PO BID nitroglycerin [Nitrostat] 0.4 mg Tablet, Sublingual 0.4 mg SUBLINGUAL Q5-15M PRN (Reason: Chest Pain) folic acid 1 mg Tablet 1 mg PO DAILY finasteride 5 mg Tablet 5 mg PO DAILY loratadine 10 mg Tablet 10 mg PO DAILY cholecalciferol (vitamin D3) [Vitamin D3] 2,000 unit Capsule 2,000 unit PO DIRECTED aspirin 81 MG tablet,delayed release (DR/EC) 81 mg PO DAILY eplerenone 25 mg Tablet 25 mg PO DAILY Rx Instructions: Takes 1/2 tab Referrals: Barrera Roth MD [Primary Care Provider] - Stand Alone Forms: Patient Portal/API
[2022-09-30 04:07] VITALS: BP 130/61; PULSE 69; RESP 20; O2SAT 95
[2022-09-30] MEDS: AZITHROMYCIN 250 MG TABLET 500 MG PO (04:13)
== END 2022-09-30 04:38 | disposition home or self-care (01) ==
PROVIDERS: Emergency Provider Emergency Medicine; PCP Internal Medicine
DX: J40 Bronchitis, not specified as acute or chronic (principal)
CPT/HCPCS: 71045; 99283

== ENCOUNTER → 2022-10-14 14:41 | Outpatient (CLI) | payer MEDICARE, OTHER, SELFPAY ==
[2022-02-14 14:37] VITALS: BMI 30.9
[2022-10-14 15:04] LABS: INR 1.2 (0.9-1.3); Prothrombin Time 13.7 SECONDS (10.1-12.7)
== END ==
PROVIDERS: PCP Internal Medicine; Referring Provider Nurse Practitioner; Visit Provider Nurse Practitioner
DX: I82.409 Acute embolism and thrombosis of unspecified deep veins of unspecified lower extremity (principal); I50.32 Chronic diastolic (congestive) heart failure
CPT/HCPCS: 36415; 85610

== ENCOUNTER → 2022-12-06 14:38 | Outpatient (CLI) | payer MEDICARE, OTHER, SELFPAY ==
[2022-02-14 14:37] VITALS: BMI 30.9
--- NOTE | 2022-12-06 14:40 | DI.US.S_ITS ---
PROCEDURE: US PERIPH VENOUS LOW EXTREM RT INDICATIONS: RULE OUT DVT TECHNIQUE: Real-time imaging, as well as color and pulse Doppler interrogation, were performed of the lower extremity deep veins from the inguinal ligament to the popliteal fossa. COMPARISON: None. FINDINGS: The common femoral, femoral and popliteal veins are normally compressible, and free of intraluminal thrombus. Color and pulse Doppler demonstrate normal phasic intraluminal flow. There is normal augmentation response to distal compression maneuver. IMPRESSION: No evidence of right lower extremity deep venous thrombosis identified. Dictated by: Alban Stephens M.D. on 12/06/2022 at 15:44 Approved by: Alban Stephens M.D. on 12/06/2022 at 15:45
== END ==
PROVIDERS: PCP Internal Medicine; Referring Provider Orthopaedic Surgery; Visit Provider Orthopaedic Surgery
DX: Z01.818 Encounter for other preprocedural examination (principal); M17.11 Unilateral primary osteoarthritis, right knee; R22.41 Localized swelling, mass and lump, right lower limb; R73.9 Hyperglycemia, unspecified; Z01.812 Encounter for preprocedural laboratory examination; N39.0 Urinary tract infection, site not specified
CPT/HCPCS: 36415; 80048; 81001; 83036; 85025; 87077; 87086; 87186; 93005; 93010; 93971

== ENCOUNTER → 2022-12-06 15:03 | Outpatient (CLI) | payer MEDICARE, OTHER, SELFPAY ==
[2022-02-14 14:37] VITALS: BMI 30.9
[2022-12-06 15:32] LABS: Add Manual Diff / Slide Review NO; Basophils Absolute Auto 0 /uL (0-100); Basophils Percent Auto 1.2 % (0-2); Eosinophils Absolute Auto 100 /uL (0-450); Eosinophils Percent Auto 3.5 % (2-4); Hematocrit 28.5 % (41-53); Hemoglobin 9.2 g/dL (13.5-17.5); Lymphocytes Absolute Auto 500 /uL (1100-4500); Mean Corpuscular HGB Conc 32.1 % (30-36); Mean Corpuscular Hemoglobin 27.9 PG (26-34); Monocytes Absolute Auto 500 /uL (0-900); Monocytes Percent Auto 17.6 % (3-14); Neutrophils Absolute Auto 1500 /uL (1500-7000); Neutrophils Percent Auto 58.7 % (50-75); Platelet Count 88 X10^3/uL (150-400); Red Blood Cell Count 3.28 X10^6/uL (4.5-5.9); Red Cell Distribution Width 17.3 % (11.6-14.8); White Blood Cell Count 2.6 X10^3/uL (4.5-11.0)
[2022-12-06 15:35] LABS: Appearance Urine UA CLEAR; Bilirubin Urine UA NEGATIVE (NEGATIVE); Color Urine UA YELLOW; Glucose Urine UA NEGATIVE (Negative); Ketones Urine UA NEGATIVE (NEGATIVE); Leukocyte Esterase Urine UA 2+ (NEGATIVE); Nitrite Urine UA POSITIVE (Negative); Occult Blood Urine UA NEGATIVE (Negative); Protein Urine UA NEGATIVE (Negative); Specific Gravity Urine UA 1.015 (1.000-1.035); Urobilinogen Urine UA 0.2 E.U./dL (0.2)
[2022-12-06 16:30] LABS: BUN Creatinine Ratio 21.1 (6-22); Blood Urea Nitrogen 16 mg/dL (9-20); Calcium 8.5 mg/dL (8.4-10.2); Chloride 95 mmol/L (98-107); Estimated Glomerular Filt Rate > 60 mL/min (>60); Glucose 96 mg/dL (80-110); HEMOLYSIS < 15 (0-50); Potassium 3.1 mmol/L (3.4-5.1); Sodium 138 mmol/L (137-145)
[2022-12-06 16:31] LABS: Bacteria Urine Many (>30); Culture Indicated Urine Specimen Cultured; RBC Urine None Seen (0-5/HPF); WBC Urine >100/HPF (0-5/HPF)
[2022-12-06 16:36] LABS: Carbon Dioxide 38 mmol/L (22-32)
[2022-12-07 07:03] LABS: Labcorp Hemoglobin (Hb) A1c 5.2 % (4.8-5.6)
== END ==
PROVIDERS: PCP Internal Medicine; Referring Provider Orthopaedic Surgery; Visit Provider Orthopaedic Surgery
DX: Z01.818 Encounter for other preprocedural examination (principal); R73.9 Hyperglycemia, unspecified; Z01.812 Encounter for preprocedural laboratory examination; N39.0 Urinary tract infection, site not specified
CPT/HCPCS: 36415; 80048; 81001; 83036; 85025; 87077; 87086; 87186; 93005

== ENCOUNTER 2023-01-06 01:51 | Emergency (ER) | payer MEDICARE, OTHER, SELFPAY ==
[2022-02-14 14:37] VITALS: BMI 30.9
[2023-01-06] VITALS (9 sets, daily range): BP systolic 114–126; BP diastolic 63–74; PULSE 63–74; RESP 16–37; TEMP 36.6–37; O2SAT 90–96; BMI 38.4
--- NOTE | 2023-01-06 02:03 | ED_ITS ---
HPI - Extremity Injury (Lower) General Chief Complaint: Extremity Injury, Lower Stated Complaint: Knee pain Time Seen by Provider: 01/06/23 02:01 History of Present Illness HPI Narrative: Patient [place] 82-year-old male multiple medical comorbidities including diastolic congestive, chronic atrial fibrillation on warfarin presenting today with right knee pain. He has chronic right knee pain however today he had difficulty getting into bed because the pain was so paralyzed. He has chronic lower extremity edema which is quite impressive. He reports that he was taken off furosemide and put on a stronger diuretic but I do not see that 1 has been filled. He denies any fall or injury. He reports that he is normally able to get around with his cane denies absolutely any chest pain shortness of breath or any other symptoms. He is overall feeling a little bit better. He is not r eceived any medication Related Data Home Medications Medication Instructions Recorded Confirmed albuterol sulfate 90 mcg/actuation 2 puff INH PRN PRN Shortness Of 03/22/17 10/10/22 aerosol inhaler (Proventil HFA) Breath ##0 mesalamine 500 mg capsule,extended 1,000 mg PO BID ##0 03/24/17 10/10/22 release (Pentasa) calcium carbonate 500 mg-vitamin 3 tab PO DAILY ##0 03/31/17 10/10/22 D3 2.5 mcg (100 unit) chewable tablet aspirin 81 mg tablet,delayed 81 mg PO DAILY 05/18/18 10/10/22 release cholecalciferol (vitamin D3) 50 2,000 unit PO DIRECTED 05/18/18 10/10/22 mcg (2,000 unit) capsule (Vitamin D3) eplerenone 25 mg tablet 25 mg PO DAILY 05/18/18 10/10/22 ferrous sulfate 325 mg (65 mg 325 mg PO BID 05/18/18 10/10/22 iron) tablet finasteride 5 mg tablet 5 mg PO DAILY 05/18/18 10/10/22 folic acid 1 mg tablet 1 mg PO DAILY 05/18/18 10/10/22 loratadine 10 mg tablet 10 mg PO DAILY 05/18/18 10/10/22 nitroglycerin 0.4 mg sublingual 0.4 mg sublingual Q5-15M PRN Chest 05/18/18 10/10/22 tablet (Nitrostat) Pain simvastatin 40 mg tablet 20 mg PO BEDTIME 12/07/21 10/10/22 fluticasone propionate 50 1 spray intranasal DAILY PRN 02/07/22 10/10/22 mcg/actuation nasal allergy symptoms spray,suspension furosemide 40 mg tablet See Rx Instructions PO BID 02/07/22 10/10/22 acetaminophen 325 mg tablet 650 mg PO Q4H PRN Pain 04/24/22 10/10/22 alfuzosin 10 mg tablet,extended 10 mg PO DAILY 04/24/22 10/10/22 release 24 hr ascorbic acid (vitamin C) 500 mg 500 mg PO DAILY 04/24/22 10/10/22 tablet cyclobenzaprine 10 mg tablet 10 mg PO TID PRN Muscle Spasm 04/24/22 10/10/22 isosorbide mononitrate 30 mg 30 mg PO DAILY 04/24/22 10/10/22 tablet,extended release 24 hr metolazone 2.5 mg tablet 2.5 mg PO 3XW 04/24/22 10/10/22 neomycin-polymyxin 1 ea topical DAILY PRN Skin 04/24/22 10/10/22 I-opzysxshou-cylbidogizbqye top Irritation ointment omeprazole 20 mg tablet,delayed 20 mg PO DAILY 04/24/22 10/10/22 release ondansetron 4 mg disintegrating 4 mg PO Q8H PRN Nausea 04/24/22 10/10/22 tablet potassium chloride 10 mEq 30 meq PO DAILY 04/24/22 10/10/22 tablet,extended release prednisone 10 mg tablet 10 mg PO DAILY 04/24/22 10/10/22 propranolol 20 mg tablet 20 mg PO DAILY 04/24/22 10/10/22 vit 2 cap PO DAILY 04/24/22 10/10/22 C,E,zinc,Dx-lewta-9-lutein-zeaxanthin 250 mg-2.5 mg-0.5 mg capsule vitamin B complex 1 tab PO DAILY 04/24/22 10/10/22 tamsulosin 0.4 mg capsule 0.4 mg PO DAILY 06/13/22 10/10/22 Previous Rx's Medication Instructions Recorded warfarin 5 mg tablet See Rx Instructions .Route 06/17/22 .COMPLEX #90 tabs Allergies Allergy/AdvReac Type Severity Reaction Status Date / Time ibuprofen Allergy Mild NOT GOOD Verified 10/10/22 12:53 FOR STOMACH BLEEDING iodine Allergy Mild UNKNOWN Verified 10/10/22 12:53 Sulfa (Sulfonamide Allergy Mild BURNED A Verified 10/10/22 12:53 Antibiotics) HOLE THRU INTESTINES thallium-201 Allergy Mild BREAKS OUT Verified 10/10/22 12:53 IN BLOTCHES AND ITCHING terazosin Allergy Hypotension Verified 10/10/22 12:53 spironolactone AdvReac Verified 10/10/22 12:53 Review of Systems Review of Systems ROS Unobtainable: All systems reviewed & are unremarkable except as noted in HPI and below Patient History Medical History Asthma BPH w urinary obs/LUTS Chicken pox Chronic anticoagulation Chronic atrial fibrillation Chronic diastolic CHF (congestive heart failure), NYHA class 1 Colon polyps Coronary artery disease Crohn's disease Diverticular disease Easy bruisability Essential hypertension Fractures Hearing loss Hemorrhoid History of colonic polyps History of urinary incontinence (~2018) Measles Mixed hyperlipidemia Mumps Myocardial infarction Obesity Osteoarthritis Positive PPD Primary osteoarthritis involving multiple joints Pulmonary hypertension Right inguinal hernia Tinnitus Vision disorder Surgical History Anesthesia H/O mitral valve replacement (~03/2017) Hx of heart artery stent (~1994) Family History Mother Congestive heart failure Father Coronary artery disease Social History household members: spouse Smoking Status: Never smoker substance use type: does not use Type(s) of exercise: walking frequency: daily Smoking Status: Never smoker alcohol intake frequency: holidays/special occasions only Substance Use Type: does not use Exam Initial Vital Signs Initial Vital Signs: Vital Signs Temperature 98.6 F 01/06/23 01:59 Pulse Rate 65 01/06/23 01:59 Respiratory Rate 16 01/06/23 01:59 Blood Pressure 114/67 01/06/23 01:59 Pulse Oximetry 95 01/06/23 01:59 Oxygen Delivery Method Room Air 01/06/23 01:59 GENERAL: Alert 82-year-old pale HEENT: Head atraumatic,EOMI, pupils reactive, face symmetric, moist mucous membranes CARDIOVASCULAR: Regular rate and rhythm without murmurs, rubs or gallops. RESPIRATORY: Breath sounds equal bilaterally, no wheezes rales or rhonchi. ABDOMEN: Soft, nontender. Normoactive bowel sounds all 4 quadrants. No guarding or rebound. EXTREMITIES: Normal range of motion, no clubbing. Significant bilateral lower extremity edema +3 Neurovascularly intact Right knee very swollen difficult to find a pedal pulse but good cap refill NEUROLOGICAL: Alert and oriented x4. SKIN: Warm, dry, no laceration, no petechiae, no rashes or lesions. Course Orders Ordered: Discontinued Medications Hydrocodone Bitart/Acetaminophen (Hydrocodone/Acet 5/325 Prepack) 1 bottle MISC SEEINSTR ONE Stop: 01/06/23 06:13 Last Admin: 01/06/23 06:41 Dose: 1 bottle Documented By: DENIS Vital Signs Vital signs: Vital Signs - 8 hr 01/06/23 01:59 01/06/23 03:32 Temperature 98.6 F Pulse Rate 65 66 Respiratory Rate 16 24 Blood Pressure 114/67 119/74 Pulse Oximetry 95 92 Oxygen Delivery Method Room Air MDM - Extremity Injury (Lower) Lab Data 01/06/23 02:15 01/06/23 02:15 Labs: Lab Results 01/06/23 01/06/23 01/06/23 Range/Units 02:02 02:15 02:15 WBC 2.9 L (4.5-11.0) X10^3/uL RBC 3.35 L (4.5-5.9) X10^6/uL Hgb 9.3 L (13.5-17.5) g/dL Hct 28.7 L (41-53) % MCV 85.7 (80-100) fL MCH 27.8 (26-34) PG MCHC 32.4 (30-36) % RDW 14.9 H (11.6-14.8) % Plt Count 103 L (150-400) X10^3/uL Neut % (Auto) 62.6 (50-75) % Lymph % (Auto) 14.4 L (25-40) % [place] % (Auto) 18.5 H (3-14) % Eos % (Auto) 3.5 (2-4) % Baso % (Auto) 1.0 (0-2) % Neut # (Auto) 1800 (6743-1176) /uL Lymph # (Auto) 400 L (2622-5761) /uL [place] # (Auto) 500 (0-900) /uL Eos # (Auto) 100 (0-450) /uL Baso # (Auto) 0 (0-100) /uL PT (10.1-12.7) SECONDS INR (0.9-1.3) Sodium 135 L (137-145) mmol/L Potassium 2.9 L (3.4-5.1) mmol/L Chloride 91 L (98-107) mmol/L Carbon Dioxide 40 H* (22-32) mmol/L BUN 21 H (9-20) mg/dL Creatinine 0.79 (0.66-1.25) mg/dL Estimated GFR > 60 (>60) mL/min BUN/Creatinine Ratio 26.6 H (6-22) Glucose 112 H (80-110) mg/dL Calcium 8.6 (8.4-10.2) mg/dL Total Bilirubin 0.8 (0.2-1.3) mg/dL AST 35 (17-59) IU/L ALT 22 (<50) IU/L Alkaline Phosphatase 82 (38-126) U/L Total Creatine Kinase 43 L (55-170) U/L Troponin I 0.037 H (0.01-0.034) ng/mL NT-Pro-B Natriuret Pep 2820 H (<450) pg/mL Total Protein 6.4 (6.3-8.2) g/dL Albumin 3.5 (3.5-5.0) g/dL Globulin 2.9 (1.7-4.1) g/dL Albumin/Globulin Ratio 1.2 (1.0-2.8) Lipase 73 (23-300) U/L Urine RBC None seen (0-5/HPF) Urine WBC 1-5/hpf (0-5/HPF) Ur Squamous Epith Cells None seen (0-5/HPF) Urine Bacteria Occasional (0-1) (None) Ur Culture Indicated? Specimen cultured 01/06/23 01/06/23 Range/Units 04:09 04:09 WBC (4.5-11.0) X10^3/uL RBC (4.5-5.9) X10^6/uL Hgb (13.5-17.5) g/dL Hct (41-53) % MCV (80-100) fL MCH (26-34) PG MCHC (30-36) % RDW (11.6-14.8) % Plt Count (150-400) X10^3/uL Neut % (Auto) (50-75) % Lymph % (Auto) (25-40) % [place] % (Auto) (3-14) % Eos % (Auto) (2-4) % Baso % (Auto) (0-2) % Neut # (Auto) (8213-8888) /uL Lymph # (Auto) (1033-9673) /uL [place] # (Auto) (0-900) /uL Eos # (Auto) (0-450) /uL Baso # (Auto) (0-100) /uL PT 15.8 H (10.1-12.7) SECONDS INR 1.4 H (0.9-1.3) Sodium (137-145) mmol/L Potassium (3.4-5.1) mmol/L Chloride (98-107) mmol/L Carbon Dioxide (22-32) mmol/L BUN (9-20) mg/dL Creatinine (0.66-1.25) mg/dL Estimated GFR (>60) mL/min BUN/Creatinine Ratio (6-22) Glucose (80-110) mg/dL Calcium (8.4-10.2) mg/dL Total Bilirubin (0.2-1.3) mg/dL AST (17-59) IU/L ALT (<50) IU/L Alkaline Phosphatase (38-126) U/L Total Creatine Kinase (55-170) U/L Troponin I 0.038 H (0.01-0.034) ng/mL NT-Pro-B Natriuret Pep (<450) pg/mL Total Protein (6.3-8.2) g/dL Albumin (3.5-5.0) g/dL Globulin (1.7-4.1) g/dL Albumin/Globulin Ratio (1.0-2.8) Lipase (23-300) U/L Urine RBC (0-5/HPF) Urine WBC (0-5/HPF) Ur Squamous Epith Cells (0-5/HPF) Urine Bacteria (None) Ur Culture Indicated? Urine Dip Bedside Urine Glucose Negative Bedside Urine Bilirubin - Negative Bedside Urine Ketone - Negative Urine Specific Mcgill 1.015 Bedside Urine Occult Blood - Negative Bedside Urine pH 8.0 Bedside Urine Protein - Negative Bedside Urine Urobilinogen - Negative Bedside Urine Nitrite - Negative Bedside Urine Leukocytes + 70 Esterase Imaging Data Extremity x-ray #1: Radiologist's Impression: Moderate-sized suprapatellar joint effusion tricompartmental degenerative changes of right knee Chest x-ray: Radiologist's Impression: No acute cardiopulmonary process ECG Data Interpretation: Atrial fibrillation rate [address] changes similar to previous EKGs MDM Narrative Medical decision making narrative: Patient 82-year-old male chronic ongoing right knee pain presenting with worsening pain. Lower extremities are quite edematous which he reports is not. He is taking a diuretic. He did not fall he just was having increased pain and unable to get into bed. X-ray is negative. Blood work does show decreased WBC today is 2.9 previously 2.6 stable anemia improved platelets today is 103 previously 88. Electrolytes are slightly off mild hypokalemia 2.9 bicarb 40 creatinine within normal limits of 0.79. Troponins are indeterminate but stable x2 0.037 and 0.038 without any EKG changes this is thought to be not related to his complaint today. BNP is elevated 2820 but this is actually stable from previous. At this time I think patient has chronic osteoarthritis on his right knee with chronic ongoing lower extremity significant edema. He had exacerbation of pain today but resolved on his own. I did not give him anything for pain in the ED. He actually slept and did well and then ambulated with his cane without any assistance. He feels like he is able to go home. His daughter is here to pick him up. At this time really does not meet any sort of admission criteria Discharge Plan Departure Patient Disposition: Home Clinical Impression: Arthritis Instructions: Osteoarthritis Activity Restrictions/Additional Instructions: *You have been diagnosed with right knee osteoarthritis *What to do: At this time we will need to follow-up with orthopedics for possible replacement but not emergent today. Your legs are quite swollen continue to take your diuretic. *Continue to take medications as directed Wilburn 1 tablet every 6 hours if needed for severe pain Tylenol 650 mg every 4-6 hours if needed for lphm-gf-aswgmbom pain *Follow up with your primary care provider in 2-3 days or call [phone] *Return to ER if you should have increasing pain swelling redness fever or any new, worsening or concerning symptoms CONTROLLED SUBSTANCE DISCHARGE (Narcotoic/benzodiazepine/Flexeril/Phenergan) 1. You have been prescribed narcotic medications, it does have acetaminophen/Tylenol/paracetamol in it, DO NOT TAKE MORE THAN 4,00mg in 24 hours of Tylenol. TRAMADOL DOES NOT CONTAIN TYLENOL 2. Please understand that we cannot provide further refills of narcotics, benzodiazepines or controlled substances through the ED and her pain management will need to be through your provider. 3. While on these medications you cannot drive or operate heavy machinery. 4. You cannot sign legal documents or perform any duties such as this. 5. As long as you're taking opiate pain medications he should also be taking a stool softener such as Colace, Dulcolax, MiraLAX or prune juice, to help avoid constipation. Prescriptions: No Action albuterol sulfate [Proventil HFA] 90 MCG/PUFF HFA aerosol inhaler 2 puff INH PRN PRN (Reason: Shortness Of Breath) Qty: 0 mesalamine [Pentasa] 500 MG capsule, extended release 1,000 mg PO BID Qty: 0 calcium carbonate-vitamin D3 500 mg-2.5 mcg (100 unit) Tablet,Chewable 3 tab PO DAILY Qty: 0 warfarin 5 mg tablet See Rx Instructions .ROUTE .COMPLEX Qty: 90 3RF Rx Instructions: 5mg MWF and 2.5mg all other days, or as directed. simvastatin 40 mg tablet 20 mg PO BEDTIME tamsulosin 0.4 mg capsule 0.4 mg PO DAILY fluticasone propionate 50 mcg/actuation spray,suspension 1 spray intranasal DAILY PRN (Reason: allergy symptoms) furosemide 40 mg tablet See Rx Instructions PO BID Rx Instructions: 2 morning, 1 evening orally twice a day; acetaminophen 325 mg tablet 650 mg PO Q4H PRN (Reason: Pain) alfuzosin 10 mg tablet extended release 24 hr 10 mg PO DAILY Rx Instructions: administer after the same meal each day ascorbic acid (vitamin C) 500 mg tablet 500 mg PO DAILY cyclobenzaprine 10 mg tablet 10 mg PO TID PRN (Reason: Muscle Spasm) isosorbide mononitrate 30 mg tablet extended release 24 hr 30 mg PO DAILY metolazone 2.5 mg tablet 2.5 mg PO 3XW omeprazole 20 mg tablet,delayed release (DR/EC) 20 mg PO DAILY potassium chloride 10 mEq tablet extended release 30 meq PO DAILY ondansetron 4 mg tablet,disintegrating 4 mg PO Q8H PRN (Reason: Nausea) prednisone 10 mg tablet 10 mg PO DAILY propranolol 20 mg tablet 20 mg PO DAILY vitamin B complex Tablet 1 tab PO DAILY vit C,E,Zn,An-ogiyg3-xrc-zeax 250-2.5-0.5 mg capsule 2 cap PO DAILY kidbv-foycgavezX-xpqjfafldq-HC Ointment 1 ea topical DAILY PRN (Reason: Skin Irritation) ferrous sulfate 325 mg (65 mg iron) Tablet 325 mg PO BID nitroglycerin [Nitrostat] 0.4 mg Tablet, Sublingual 0.4 mg SUBLINGUAL Q5-15M PRN (Reason: Chest Pain) folic acid 1 mg Tablet 1 mg PO DAILY finasteride 5 mg Tablet 5 mg PO DAILY loratadine 10 mg Tablet 10 mg PO DAILY cholecalciferol (vitamin D3) [Vitamin D3] 2,000 unit Capsule 2,000 unit PO DIRECTED aspirin 81 MG tablet,delayed release (DR/EC) 81 mg PO DAILY eplerenone 25 mg Tablet 25 mg PO DAILY Rx Instructions: Takes 1/2 tab Referrals: Barrera Roth MD [Primary Care Provider] - Stand Alone Forms: Patient Portal/API
--- NOTE | 2023-01-06 02:03 | DI.RAD.S_ITS ---
PROCEDURE: XR KNEE RT 3V INDICATIONS: pain TECHNIQUE: 3 views of the knee were acquired. COMPARISON: [facility], , XR KNEE RT 3V, 01/01/2020, 17:28. [facility], , XR KNEE RT 3V, 02/02/2020, 20:19. FINDINGS: Bones: No fractures or dislocations. No suspicious bony lesions. Dcnhfvde-ai-sjiwdm tricompartmental knee joint degeneration. Soft tissues: Moderate joint effusion. No suspicious soft tissue calcifications. IMPRESSION: 1. Hxpyljrn-xq-yqmorc osteoarthritic changes. 2. Moderate knee joint effusion. No significant discrepancy with the film processing shift supervisor radiology preliminary report. Dictated by: Nicky Muniz M.D. on 01/06/2023 at 8:19 Approved by: Nicky Muniz M.D. on 01/06/2023 at 8:21
[2023-01-06 02:36] LABS: Alanine Aminotransferase 22 IU/L (<50); Albumin 3.5 g/dL (3.5-5.0); Albumin Globulin Ratio 1.2 (1.0-2.8); Alkaline Phosphatase 82 U/L (38-126); Aspartate Aminotransferase 35 IU/L (17-59); BUN Creatinine Ratio 26.6 (6-22); Bilirubin Total 0.8 mg/dL (0.2-1.3); Blood Urea Nitrogen 21 mg/dL (9-20); Calcium 8.6 mg/dL (8.4-10.2); Chloride 91 mmol/L (98-107); Creatine Kinase 43 U/L (55-170); Estimated Glomerular Filt Rate > 60 mL/min (>60); Globulin 2.9 g/dL (1.7-4.1); Glucose 112 mg/dL (80-110); HEMOLYSIS < 15 (0-50); Lipase 73 U/L (23-300); Potassium 2.9 mmol/L (3.4-5.1); Sodium 135 mmol/L (137-145); Total Protein 6.4 g/dL (6.3-8.2)
[2023-01-06 02:39] LABS: Add Manual Diff / Slide Review NO; Basophils Absolute Auto 0 /uL (0-100); Eosinophils Absolute Auto 100 /uL (0-450); Eosinophils Percent Auto 3.5 % (2-4); Hematocrit 28.7 % (41-53); Hemoglobin 9.3 g/dL (13.5-17.5); Lymphocytes Absolute Auto 400 /uL (1100-4500); Lymphocytes Percent Auto 14.4 % (25-40); Mean Corpuscular HGB Conc 32.4 % (30-36); Mean Corpuscular Hemoglobin 27.8 PG (26-34); Mean Corpuscular Volume 85.7 fL (80-100); Monocytes Absolute Auto 500 /uL (0-900); Monocytes Percent Auto 18.5 % (3-14); Neutrophils Absolute Auto 1800 /uL (1500-7000); Neutrophils Percent Auto 62.6 % (50-75); Platelet Count 103 X10^3/uL (150-400); Red Blood Cell Count 3.35 X10^6/uL (4.5-5.9); Red Cell Distribution Width 14.9 % (11.6-14.8); White Blood Cell Count 2.9 X10^3/uL (4.5-11.0)
[2023-01-06 02:48] LABS: NT-proBNP (BNP-Adult 18+) 2820 pg/mL (<450); Troponin I 0.037 ng/mL (0.01-0.034)
[2023-01-06 02:50] LABS: Carbon Dioxide 40 mmol/L (22-32)
[2023-01-06 02:57] LABS: RBC Urine None Seen (0-5/HPF)
[2023-01-06 02:58] LABS: Bacteria Urine Occasional (0-1); Culture Indicated Urine Specimen Cultured; Squamous Epithelial Cell Urine None Seen (0-5/HPF); WBC Urine 1-5/HPF (0-5/HPF)
--- NOTE | 2023-01-06 04:08 | DI.RAD.S_ITS ---
PROCEDURE: XR CHEST 1V INDICATIONS: fluid overload TECHNIQUE: One view of the chest was acquired. COMPARISON: [facility], CR, XR CHEST 1V, 09/30/2022, 2:50. FINDINGS: Surgical changes and devices: Sternotomy. There is a cardiac valve prosthesis. Lungs and pleura: Mild chronic interstitial prominence. No focal consolidation. No pleural effusions or pneumothorax. Mediastinum: Mediastinal contours appear normal. Heart size is mildly increased. Bones and chest wall: No suspicious bony lesions. Overlying soft tissues appear unremarkable. IMPRESSION: 1. No acute cardiopulmonary disease. No significant discrepancy with the fast food shift lead radiology preliminary report. Dictated by: Nicky Muniz M.D. on 01/06/2023 at 8:02 Approved by: Nicky Muniz M.D. on 01/06/2023 at 8:04
[2023-01-06 04:41] LABS: Troponin I 0.038 ng/mL (0.01-0.034)
[2023-01-06 04:54] LABS: INR 1.4 (0.9-1.3); Prothrombin Time 15.8 SECONDS (10.1-12.7)
[2023-01-06] MEDS: HYDROCODONE/ACET 5/325 PREPACK 1 BOTTLE MISC (06:41)
== END 2023-01-06 07:08 | disposition home or self-care (01) ==
PROVIDERS: Emergency Provider Emergency Medicine; PCP Internal Medicine
DX: M17.11 Unilateral primary osteoarthritis, right knee (principal); R60.0 Localized edema; I48.91 Unspecified atrial fibrillation
CPT/HCPCS: 36415; 71045; 73562; 80053; 81003; 81015; 82550; 83690; 83880; 84484; 85025; 85610; 87077; 87086; 87186; 93005; 93010; 99283; 99284

== ENCOUNTER → 2023-01-10 10:37 | Outpatient (CLI) | payer MEDICARE, OTHER, SELFPAY ==
[2022-02-14 14:37] VITALS: BMI 30.9
[2023-01-10 11:25] LABS: INR 1.3 (0.9-1.3); Prothrombin Time 15.2 SECONDS (10.1-12.7)
== END ==
PROVIDERS: PCP Internal Medicine; Referring Provider Nurse Practitioner; Visit Provider Nurse Practitioner
DX: Z98.890 Other specified postprocedural states (principal)
CPT/HCPCS: 36415; 85610

== ENCOUNTER 2023-01-12 23:10 | Inpatient (IN) | payer MEDICARE, OTHER, SELFPAY ==
[2022-02-14 14:37] VITALS: BMI 30.9
[2023-01-12 23:16] VITALS: BP 105/64
[2023-01-12 23:17] VITALS: BP 105/64; PULSE 72; PULSE 73; RESP 18; RESP 25; TEMP 36.6; O2SAT 91; O2SAT 97; BMI 37.0
[2023-01-12 23:30] VITALS: BP 109/65; PULSE 72; RESP 31; O2SAT 92
--- NOTE | 2023-01-12 23:43 | ED_ITS ---
HPI - General Adult General Chief complaint: Weakness Stated complaint: Generalized weakness Time Seen by Provider: 01/12/23 23:22 Source: patient Mode of arrival: Ambulatory History of Present Illness HPI narrative: Patient is an 82-year-old male. He is currently being treated with Keflex for a urinary tract infection. It appears that the urine sample was obtained approximately 1 week ago when he was here in the emergency department for knee pain and was subsequently discharged home. I suspect that when the culture resulted he was given a prescription for antibiotics. That was on 01/10/2023. He states that he is feeling weak and has been feeling weak for the past couple days. He states that at baseline it is somewhat difficult for him to get up out of his chair get up out of bed and sometimes he has to pull himself up using furniture however today he could not get up out of his chair. He normally uses either canes or a walker to help him get around. He denies any chest pain, shortness of breath, abdominal pain or headache. No nausea vomiting. He thinks that maybe he is had a decreased oral intake recently is he just has not had much of an appetite. Related Data Home Medications Medication Instructions Recorded Confirmed albuterol sulfate 90 mcg/actuation 2 puff INH PRN PRN Shortness Of 03/22/17 10/10/22 aerosol inhaler (Proventil HFA) Breath ##0 mesalamine 500 mg capsule,extended 1,000 mg PO BID ##0 03/24/17 10/10/22 release (Pentasa) calcium carbonate 500 mg-vitamin 3 tab PO DAILY ##0 03/31/17 10/10/22 D3 2.5 mcg (100 unit) chewable tablet aspirin 81 mg tablet,delayed 81 mg PO DAILY 05/18/18 10/10/22 release cholecalciferol (vitamin D3) 50 2,000 unit PO DIRECTED 05/18/18 10/10/22 mcg (2,000 unit) capsule (Vitamin D3) eplerenone 25 mg tablet 25 mg PO DAILY 05/18/18 10/10/22 ferrous sulfate 325 mg (65 mg 325 mg PO BID 05/18/18 10/10/22 iron) tablet finasteride 5 mg tablet 5 mg PO DAILY 05/18/18 10/10/22 folic acid 1 mg tablet 1 mg PO DAILY 05/18/18 10/10/22 loratadine 10 mg tablet 10 mg PO DAILY 05/18/18 10/10/22 nitroglycerin 0.4 mg sublingual 0.4 mg sublingual Q5-15M PRN Chest 05/18/18 10/10/22 tablet (Nitrostat) Pain simvastatin 40 mg tablet 20 mg PO BEDTIME 12/07/21 10/10/22 fluticasone propionate 50 1 spray intranasal DAILY PRN 02/07/22 10/10/22 mcg/actuation nasal allergy symptoms spray,suspension furosemide 40 mg tablet See Rx Instructions PO BID 02/07/22 10/10/22 acetaminophen 325 mg tablet 650 mg PO Q4H PRN Pain 04/24/22 10/10/22 alfuzosin 10 mg tablet,extended 10 mg PO DAILY 04/24/22 10/10/22 release 24 hr ascorbic acid (vitamin C) 500 mg 500 mg PO DAILY 04/24/22 10/10/22 tablet cyclobenzaprine 10 mg tablet 10 mg PO TID PRN Muscle Spasm 04/24/22 10/10/22 isosorbide mononitrate 30 mg 30 mg PO DAILY 04/24/22 10/10/22 tablet,extended release 24 hr metolazone 2.5 mg tablet 2.5 mg PO 3XW 04/24/22 10/10/22 neomycin-polymyxin 1 ea topical DAILY PRN Skin 04/24/22 10/10/22 O-zkksjgsflp-xigbqsvwiyzhls top Irritation ointment omeprazole 20 mg tablet,delayed 20 mg PO DAILY 04/24/22 10/10/22 release ondansetron 4 mg disintegrating 4 mg PO Q8H PRN Nausea 04/24/22 10/10/22 tablet potassium chloride 10 mEq 30 meq PO DAILY 04/24/22 10/10/22 tablet,extended release prednisone 10 mg tablet 10 mg PO DAILY 04/24/22 10/10/22 propranolol 20 mg tablet 20 mg PO DAILY 04/24/22 10/10/22 vit 2 cap PO DAILY 04/24/22 10/10/22 C,E,zinc,Ex-fqpyc-5-lutein-zeaxanthin 250 mg-2.5 mg-0.5 mg capsule vitamin B complex 1 tab PO DAILY 04/24/22 10/10/22 tamsulosin 0.4 mg capsule 0.4 mg PO DAILY 06/13/22 10/10/22 Previous Rx's Medication Instructions Recorded warfarin 5 mg tablet See Rx Instructions .Route 06/17/22 .COMPLEX #90 tabs cefpodoxime 200 mg tablet 200 mg PO BID 10 days #20 tabs 01/10/23 Allergies Allergy/AdvReac Type Severity Reaction Status Date / Time ibuprofen Allergy Mild NOT GOOD Verified 10/10/22 12:53 FOR STOMACH BLEEDING iodine Allergy Mild UNKNOWN Verified 10/10/22 12:53 Sulfa (Sulfonamide Allergy Mild BURNED A Verified 10/10/22 12:53 Antibiotics) HOLE THRU INTESTINES thallium-201 Allergy Mild BREAKS OUT Verified 10/10/22 12:53 IN BLOTCHES AND ITCHING terazosin Allergy Hypotension Verified 10/10/22 12:53 spironolactone AdvReac Verified 10/10/22 12:53 Review of Systems Review of Systems ROS Unobtainable: All systems reviewed & are unremarkable except as noted in HPI and below Patient History Medical History Asthma BPH w urinary obs/LUTS Chicken pox Chronic anticoagulation Chronic atrial fibrillation Chronic diastolic CHF (congestive heart failure), NYHA class 1 Colon polyps Coronary artery disease Crohn's disease Diverticular disease Easy bruisability Essential hypertension Fractures Hearing loss Hemorrhoid History of colonic polyps History of urinary incontinence (~2018) Measles Mixed hyperlipidemia Mumps Myocardial infarction Obesity Osteoarthritis Positive PPD Primary osteoarthritis involving multiple joints Pulmonary hypertension Right inguinal hernia Tinnitus Vision disorder Surgical History Anesthesia H/O mitral valve replacement (~03/2017) Hx of heart artery stent (~1994) Family History Mother Congestive heart failure Father Coronary artery disease Social History household members: spouse Smoking Status: Never smoker substance use type: does not use Type(s) of exercise: walking frequency: daily Smoking Status: Never smoker alcohol intake frequency: holidays/special occasions only Substance Use Type: does not use Exam Initial Vital Signs Initial Vital Signs: Vital Signs Blood Pressure 105/64 01/12/23 23:16 Const General: cooperative, comfortable and No ill appearing HENMT Head: normal to inspection and normocephalic Resp Effort & Inspection: normal respiratory effort Auscultation: clear to auscultation bilaterally Cardio Rate: regular rate Rhythm: regular rhythm GI Inspection: normal to inspection Palpation: soft and No tender Skin General: no rashes or lesions noted Neuro General: patient alert, patient awake and moves all extremities Extrem General: capillary refill normal Scores GCS [place] coma scale eye opening: Spontaneous [place] coma scale verbal response: Orientated [place] coma scale motor response: Obey commands [place] coma scale total score: 15 Course Orders Ordered: ED Orders 01/12/23 23:22 Complete Blood Count AUTO DIFF Stat Comprehensive Metabolic Panel Stat Lipase Stat 01/12/23 23:38 EKG-12 Lead Stat 01/13/23 01:09 Urinalysis and Microscopic Stat Urine Culture Stat Sodium Chloride (Normal Saline 0.9%) 1,000 mls @ 100 mls/hr IV CONT SCOTT Discontinued Medications Ceftriaxone Sodium 2,000 mg/ (Sodium Chloride) 100 mls @ 200 mls/hr IV NOW ONE Stop: 01/13/23 01:28 Vital Signs Vital signs: Vital Signs - 8 hr 01/12/23 23:17 01/12/23 23:16 01/12/23 23:17 Temperature 97.9 F Pulse Rate 72 73 Respiratory Rate 18 25 H Blood Pressure 105/64 105/64 Pulse Oximetry 97 91 Oxygen Delivery Method Room Air Oxygen Flow Rate 01/12/23 23:30 01/12/23 23:30 01/13/23 00:18 Temperature Pulse Rate 72 Respiratory Rate 31 H Blood Pressure 109/65 Pulse Oximetry 92 97 Oxygen Delivery Method Room Air Oximask Oxygen Flow Rate 1 01/13/23 00:00 01/13/23 00:00 Temperature Pulse Rate 67 Respiratory Rate 23 Blood Pressure 111/68 Pulse Oximetry 90 L Oxygen Delivery Method Oximask Oxygen Flow Rate 1 Medical Decision Making Medical Records Medical records reviewed: Yes I reviewed the patient's medical records. Lab Data Lab results reviewed: Yes I reviewed the patient's lab results. 01/12/23 23:22 01/12/23 23:22 Labs: Lab Results 01/12/23 01/12/23 01/13/23 Range/Units 23:22 23:22 01:09 WBC 2.7 L (4.5-11.0) X10^3/uL RBC 3.34 L (4.5-5.9) X10^6/uL Hgb 9.2 L (13.5-17.5) g/dL Hct 28.6 L (41-53) % MCV 85.7 (80-100) fL MCH 27.7 (26-34) PG MCHC 32.3 (30-36) % RDW 15.4 H (11.6-14.8) % Plt Count 107 L (150-400) X10^3/uL Neut % (Auto) 67.8 (50-75) % Lymph % (Auto) 14.1 L (25-40) % [place] % (Auto) 15.5 H (3-14) % Eos % (Auto) 2.1 (2-4) % Baso % (Auto) 0.5 (0-2) % Neut # (Auto) 1800 (0852-6720) /uL Lymph # (Auto) 400 L (3447-9860) /uL [place] # (Auto) 400 (0-900) /uL Eos # (Auto) 100 (0-450) /uL Baso # (Auto) 0 (0-100) /uL Sodium 134 L (137-145) mmol/L Potassium 4.2 D (3.4-5.1) mmol/L Chloride 92 L (98-107) mmol/L Carbon Dioxide 40 H* (22-32) mmol/L BUN 19 (9-20) mg/dL Creatinine 0.82 (0.66-1.25) mg/dL Estimated GFR > 60 (>60) mL/min BUN/Creatinine Ratio 23.2 H (6-22) Glucose 132 H (80-110) mg/dL Calcium 8.9 (8.4-10.2) mg/dL Total Bilirubin 0.4 (0.2-1.3) mg/dL AST 31 (17-59) IU/L ALT 22 (<50) IU/L Alkaline Phosphatase 75 (38-126) U/L Total Protein 6.4 (6.3-8.2) g/dL Albumin 3.6 (3.5-5.0) g/dL Globulin 2.8 (1.7-4.1) g/dL Albumin/Globulin Ratio 1.3 (1.0-2.8) Lipase 71 (23-300) U/L Urine Color Yellow Urine Appearance Clear Urine pH 6.0 (4.5-8.0) Ur Specific [place] 1.020 (1.000-1.035) Urine Protein Trace H (Negative) Urine Glucose (UA) Negative (Negative) g/dL Urine Ketones Negative (NEGATIVE) Urine Occult Blood Negative (Negative) Urine Nitrate Negative (Negative) Urine Bilirubin Negative (NEGATIVE) Urine Urobilinogen 1.0 (0.2) E.U./dL Ur Leukocyte Esterase 1+ H (NEGATIVE) Urine RBC 0-1/hpf (0-5/HPF) Urine WBC 30-100/hpf H (0-5/HPF) Ur Squamous Epith Cells 0-1 /hpf (0-5/HPF) Urine Bacteria Many (>30) H (None) Hyaline Casts 1-5/lpf (None) ECG Data Attestation: I personally reviewed and interpreted this ECG as follows: Interpretation: Sinus rhythm First-degree AV block LA interval 304 Ventricular rate is 71 Normal axis Occasional PVC QTC [address] T wave changes MDM Narrative Medical decision making narrative: Patient's complaint is that he is more weak than normal and potentially has had decreased oral intake. Patient had a very difficult time and was almost unable to sit up in better but his legs in the side of the bed. He needed a 2 person assist to help him stand up. Once he was able to stand he was able to walk with a walker. He denies chest pain or shortness of breath. He is currently being treated for a pansensitive E coli urinary tract infection. He has been on antibiotics for the past couple days. I suspect that his weakness is related to this. He continues to be leukopenic at his baseline. He does have a elevated CO2 but this is baseline for him. Discussed the case with ELIESER Liu the night hospitalist. We will admit for further evaluation and treatment. Discussed the need for admission with the patient. He expressed understanding and agreement as well. Discharge Plan Departure Patient Disposition: Admitted as Observation Clinical Impression: Acute UTI, Weakness Admit Date/Time: 01/13/23 01:30 Admit Provider: Yulissa Liu
[2023-01-12 23:53] LABS: Add Manual Diff / Slide Review NO; Basophils Absolute Auto 0 /uL (0-100); Basophils Percent Auto 0.5 % (0-2); Eosinophils Absolute Auto 100 /uL (0-450); Eosinophils Percent Auto 2.1 % (2-4); Hematocrit 28.6 % (41-53); Hemoglobin 9.2 g/dL (13.5-17.5); Lymphocytes Absolute Auto 400 /uL (1100-4500); Lymphocytes Percent Auto 14.1 % (25-40); Mean Corpuscular HGB Conc 32.3 % (30-36); Mean Corpuscular Hemoglobin 27.7 PG (26-34); Mean Corpuscular Volume 85.7 fL (80-100); Monocytes Absolute Auto 400 /uL (0-900); Monocytes Percent Auto 15.5 % (3-14); Neutrophils Absolute Auto 1800 /uL (1500-7000); Neutrophils Percent Auto 67.8 % (50-75); Platelet Count 107 X10^3/uL (150-400); Red Blood Cell Count 3.34 X10^6/uL (4.5-5.9); Red Cell Distribution Width 15.4 % (11.6-14.8); White Blood Cell Count 2.7 X10^3/uL (4.5-11.0)
[2023-01-13] VITALS (14 sets, daily range): BP systolic 98–112; BP diastolic 60–71; PULSE 60–72; RESP 16–23; TEMP 36.4–36.6; O2SAT 90–99; BMI 34.4
[2023-01-13] LABS: Alanine Aminotransferase 22 IU/L (<50); Albumin 3.6 g/dL (3.5-5.0); Albumin Globulin Ratio 1.3 (1.0-2.8); Alkaline Phosphatase 75 U/L (38-126); Aspartate Aminotransferase 31 IU/L (17-59); BUN Creatinine Ratio 23.2 (6-22); Bilirubin Total 0.4 mg/dL (0.2-1.3); Blood Urea Nitrogen 19 mg/dL (9-20); Calcium 8.9 mg/dL (8.4-10.2); Chloride 92 mmol/L (98-107); Estimated Glomerular Filt Rate > 60 mL/min (>60); Globulin 2.8 g/dL (1.7-4.1); Glucose 132 mg/dL (80-110); HEMOLYSIS < 15 (0-50); Lipase 71 U/L (23-300); Potassium 4.2 mmol/L (3.4-5.1); Sodium 134 mmol/L (137-145); Total Protein 6.4 g/dL (6.3-8.2)
[2023-01-13 00:02] LABS: Carbon Dioxide 40 mmol/L (22-32)
--- NOTE | 2023-01-13 00:35 | PC.NURSE ---
Pt sleeping and oxygen saturation decreases to 88% on RA. Placed on 1 L via oximask. Oxygen saturation 98% on 1L via oximask. Provider aware.
--- NOTE | 2023-01-13 00:44 | PC.NURSE ---
Ambulation trial per provider Diya direction. Pt needed some assistances standing up from the bed, but once up he was able to ambulate down the hallway and back with a walker. Pt uses a walker at home and has a lift-assist chair. Provider aware.
--- NOTE | 2023-01-13 01:14 | PC.NURSE ---
Pt reports chronic isaac. Sample taken from isaac port.
[2023-01-13 01:18] LABS: Appearance Urine UA CLEAR; Bilirubin Urine UA NEGATIVE (NEGATIVE); Color Urine UA YELLOW; Glucose Urine UA NEGATIVE (Negative); Ketones Urine UA NEGATIVE (NEGATIVE); Leukocyte Esterase Urine UA 1+ (NEGATIVE); Nitrite Urine UA NEGATIVE (Negative); Occult Blood Urine UA NEGATIVE (Negative); Protein Urine UA TRACE (Negative)
[2023-01-13 01:24] LABS: Bacteria Urine Many (>30); RBC Urine 0-1/HPF (0-5/HPF); WBC Urine 30-100/HPF (0-5/HPF)
[2023-01-13 01:25] LABS: Hyaline Casts Urine 1-5/LPF; Squamous Epithelial Cell Urine 0-1 /HPF (0-5/HPF)
[2023-01-13] MEDS: cefTRIAXone 2,000 MG in SODIUM CHLORIDE 0.9% 100 ML 200 MG IV (01:48)
[2023-01-13] MEDS: SODIUM CHLORIDE 0.9% 1,000 ML 100 ML IV (01:49)
--- NOTE | 2023-01-13 02:02 | P.HP_ITS ---
History of Present Illness History of Present Illness Date Patient Seen: 01/13/23 Time Patient Seen: 02:02 Chief complaint: Generalized weakness UTI Narrative: Tramaine Powell is an 82 year old Male with a past medical history AVNRT post ablation, pulmonary HTN, TIA, heart catheterization, angioplasty, permanent chronic AFib on Coumadin, atrial clip, diastolic CHF, oa, CAD, BPH, chronic anemia, HDL, Crohn's colitis, GERD, and peripheral edema patient called EMS when he found he was too weak to stand up out of his chair at home. Patient normally ambulates with a walker. In the patient's chart was seen a urine culture from an unknown source that was taken in December that was positive for E coli, it appears patient was never notified or treated. Patient had been seen in the ED on 01/10/23 for knee pain & weakness a urine culture subsequently showed panse nsitive E coli, Dr. Alvarado called in Keflex prescription on 01/10/2023 which the patient has been taking for approximately 3 days. U/A in the ED was positive sent for repeat culture. Patient notes that he is not had a bowel movement in 4 days, noted mild diffuse abdominal tenderness with palpation. On admit patient denies chest pain, shortness in breath, headache, changes in vision, difficulty swallowing, speech impairment, numbness, tingling, recent falls, head injury, LOC, fever, body aches, chills, cough, recent exposure to illness, nausea, vomiting, bowel changes, incontinence, melena, rashes, recent changes to medication, illness, injury, or trauma. Vitals at the time of admit temp 97.9?, 111/68, 64, 20, 99% on rm air. Patient's falling lab findings are baseline. WBC 2.7, H&H 9/28, PLT 107, sodium 134, Cl 92, bicarb 40, glucose 132. Patient admitted for UTI with generalized w eakness for observation. [facility] Medical History Asthma BPH w urinary obs/LUTS Chicken pox Chronic anticoagulation Chronic atrial fibrillation Chronic diastolic CHF (congestive heart failure), NYHA class 1 Colon polyps Coronary artery disease Crohn's disease Diverticular disease Easy bruisability Essential hypertension Fractures Hearing loss Hemorrhoid History of colonic polyps History of urinary incontinence (~2018) Measles Mixed hyperlipidemia Mumps Myocardial infarction Obesity Osteoarthritis Positive PPD Primary osteoarthritis involving multiple joints Pulmonary hypertension Right inguinal hernia Tinnitus Vision disorder Surgical History Anesthesia H/O mitral valve replacement (~03/2017) Hx of heart artery stent (~1994) Family History Mother Congestive heart failure Father Coronary artery disease Social History household members: spouse Smoking Status: Never smoker substance use type: does not use Type(s) of exercise: walking frequency: daily Meds Home Medications and Allergies Home Medications Medication Instructions Recorded Confirmed Type albuterol sulfate 90 mcg/actuation 2 puff INH PRN PRN Shortness Of 03/22/17 10/10/22 History aerosol inhaler (Proventil HFA) Breath ##0 mesalamine 500 mg capsule,extended 1,000 mg PO BID ##0 03/24/17 10/10/22 History release (Pentasa) calcium carbonate 500 mg-vitamin 3 tab PO DAILY ##0 03/31/17 10/10/22 History D3 2.5 mcg (100 unit) chewable tablet aspirin 81 mg tablet,delayed 81 mg PO DAILY 05/18/18 10/10/22 History release cholecalciferol (vitamin D3) 50 2,000 unit PO DIRECTED 05/18/18 10/10/22 History mcg (2,000 unit) capsule (Vitamin D3) eplerenone 25 mg tablet 25 mg PO DAILY 05/18/18 10/10/22 History ferrous sulfate 325 mg (65 mg 325 mg PO BID 05/18/18 10/10/22 History iron) tablet finasteride 5 mg tablet 5 mg PO DAILY 05/18/18 10/10/22 History folic acid 1 mg tablet 1 mg PO DAILY 05/18/18 10/10/22 History loratadine 10 mg tablet 10 mg PO DAILY 05/18/18 10/10/22 History nitroglycerin 0.4 mg sublingual 0.4 mg sublingual Q5-15M PRN Chest 05/18/18 10/10/22 History tablet (Nitrostat) Pain simvastatin 40 mg tablet 20 mg PO BEDTIME 12/07/21 10/10/22 History fluticasone propionate 50 1 spray intranasal DAILY PRN 02/07/22 10/10/22 History mcg/actuation nasal allergy symptoms spray,suspension furosemide 40 mg tablet See Rx Instructions PO BID 02/07/22 10/10/22 History acetaminophen 325 mg tablet 650 mg PO Q4H PRN Pain 04/24/22 10/10/22 History alfuzosin 10 mg tablet,extended 10 mg PO DAILY 04/24/22 10/10/22 History release 24 hr ascorbic acid (vitamin C) 500 mg 500 mg PO DAILY 04/24/22 10/10/22 History tablet cyclobenzaprine 10 mg tablet 10 mg PO TID PRN Muscle Spasm 04/24/22 10/10/22 History isosorbide mononitrate 30 mg 30 mg PO DAILY 04/24/22 10/10/22 History tablet,extended release 24 hr metolazone 2.5 mg tablet 2.5 mg PO 3XW 04/24/22 10/10/22 History neomycin-polymyxin 1 ea topical DAILY PRN Skin 04/24/22 10/10/22 History D-ulmdmodqee-jjkddmgjyiirld top Irritation ointment omeprazole 20 mg tablet,delayed 20 mg PO DAILY 04/24/22 10/10/22 History release ondansetron 4 mg disintegrating 4 mg PO Q8H PRN Nausea 04/24/22 10/10/22 History tablet potassium chloride 10 mEq 30 meq PO DAILY 04/24/22 10/10/22 History tablet,extended release prednisone 10 mg tablet 10 mg PO DAILY 04/24/22 10/10/22 History propranolol 20 mg tablet 20 mg PO DAILY 04/24/22 10/10/22 History vit 2 cap PO DAILY 04/24/22 10/10/22 History C,E,zinc,Fl-fgwsj-1-lutein-zeaxanthin 250 mg-2.5 mg-0.5 mg capsule vitamin B complex 1 tab PO DAILY 04/24/22 10/10/22 History tamsulosin 0.4 mg capsule 0.4 mg PO DAILY 06/13/22 10/10/22 History warfarin 5 mg tablet See Rx Instructions .Route 06/17/22 10/10/22 Rx .COMPLEX #90 tabs cefpodoxime 200 mg tablet 200 mg PO BID 10 days #20 tabs 01/10/23 Rx Allergies Allergy/AdvReac Type Severity Reaction Status Date / Time ibuprofen Allergy Mild NOT GOOD Verified 10/10/22 12:53 FOR STOMACH BLEEDING iodine Allergy Mild UNKNOWN Verified 10/10/22 12:53 Sulfa (Sulfonamide Allergy Mild BURNED A Verified 10/10/22 12:53 Antibiotics) HOLE THRU INTESTINES thallium-201 Allergy Mild BREAKS OUT Verified 10/10/22 12:53 IN BLOTCHES AND ITCHING terazosin Allergy Hypotension Verified 10/10/22 12:53 spironolactone AdvReac Verified 10/10/22 12:53 Review of Systems Review of Systems Narrative: All 12 point systems reviewed with the patient and are negative except otherwise documented. Exam Vital Signs (past 8 hours): - 01/12/23 23:17 01/12/23 23:16 01/12/23 23:17 Temperature 97.9 F Pulse Rate 72 73 Respiratory Rate 18 25 H Blood Pressure 105/64 105/64 Pulse Oximetry 97 91 Oxygen Delivery Method Room Air Oxygen Flow Rate 01/12/23 23:30 01/12/23 23:30 01/13/23 00:18 Temperature Pulse Rate 72 Respiratory Rate 31 H Blood Pressure 109/65 Pulse Oximetry 92 97 Oxygen Delivery Method Room Air Oximask Oxygen Flow Rate 1 01/13/23 00:00 01/13/23 00:00 01/13/23 00:42 Temperature Pulse Rate 67 72 Respiratory Rate 23 Blood Pressure 111/68 Pulse Oximetry 90 L Oxygen Delivery Method Oximask Oxygen Flow Rate 1 01/13/23 01:00 01/13/23 01:30 Temperature Pulse Rate 66 64 Respiratory Rate 20 Blood Pressure Pulse Oximetry 99 99 Oxygen Delivery Method Oximask Oxygen Flow Rate 1 Oxygen Delivery Method Oximask Oxygen Flow Rate 1 Narrative Exam Narrative: General: Patient is a well-developed, well-nourished, who is ill appearing, in mild discomfort, but in no distress at this time. HEENT: Normocephalic, atraumatic, extraocular muscles intact, oral pharynx is clear and mucous membranes are moist. Neck is supple and symmetric, trachea is midline, no adenopathy, no thyroid enlargement, nontender, no masses palpated. Negative for JVD Chest: Equal chest rise without nasal flaring, retractions, tachypneic or labored breathing. Lungs: Auscultation of all lung [place] are clear without adventitious sounds, wheezes, rhonchi, or rales. Cardio: irregular rate and rhythm normal S1 & S2 Abdomen: Soft mildly distended, and diffuse tenderness to palpation negative for organomegaly, or masses. Bowel sounds are very hypoactive present in all 4 quadrants without guarding or rebound, no CVA tenderness. Musculoskeletal: Muscle strength and tone are equal, no deformity, crepitus, effusions, cyanosis, clubbing or edema present. Full range of motion intact radial and pedal pulses are normal. Skin: Warm dry and intact without rashes, ulcerations or petechiae. Neuro: Alert and orientated x3, moves all extremities, sensation to touch intact, no gross deficits noted of cranial nerves. Psych: Patient has a well-kept appearance, appropriate affect, mental status attitude thought context and judgment are appropriate for age. Objective Labs 01/12/23 23:22 01/12/23 23:22 Labs: Laboratory Results - last 24 hr 01/12/23 01/12/23 01/13/23 23:22 23:22 01:09 WBC 2.7 L RBC 3.34 L Hgb 9.2 L Hct 28.6 L MCV 85.7 MCH 27.7 MCHC 32.3 RDW 15.4 H Plt Count 107 L Neut % (Auto) 67.8 Lymph % (Auto) 14.1 L [place] % (Auto) 15.5 H Eos % (Auto) 2.1 Baso % (Auto) 0.5 Neut # (Auto) 1800 Lymph # (Auto) 400 L [place] # (Auto) 400 Eos # (Auto) 100 Baso # (Auto) 0 Sodium 134 L Potassium 4.2 D Chloride 92 L Carbon Dioxide 40 H* BUN 19 Creatinine 0.82 Estimated GFR > 60 BUN/Creatinine Ratio 23.2 H Glucose 132 H Calcium 8.9 Total Bilirubin 0.4 AST 31 ALT 22 Alkaline Phosphatase 75 Total Protein 6.4 Albumin 3.6 Globulin 2.8 Albumin/Globulin Ratio 1.3 Lipase 71 Urine Color Yellow Urine Appearance Clear Urine pH 6.0 Ur Specific [place] 1.020 Urine Protein Trace H Urine Glucose (UA) Negative Urine Ketones Negative Urine Occult Blood Negative Urine Nitrate Negative Urine Bilirubin Negative Urine Urobilinogen 1.0 Ur Leukocyte Esterase 1+ H Urine RBC 0-1/hpf Urine WBC 30-100/hpf H Ur Squamous Epith Cells 0-1 /hpf Urine Bacteria Many (>30) H Hyaline Casts 1-5/lpf Assessment & Plan Assessment & Plan narrative: Tramaine Powell is an 82 year old Male with a past medical history AVNRT post ablation, pulmonary HTN, TIA, heart catheterization, angioplasty, permanent chronic AFib on Coumadin, atrial clip, diastolic CHF, oa, CAD, BPH, chronic anemia, HDL, Crohn's colitis, GERD, and peripheral edema patient called EMS when he found he was too weak to stand up out of his chair at home. Patient admitted for UTI with generalized weakness for observation, after failing outpatient management. Patient admitted for observation to receive IV fluids, monitor and trend labs and IV antibiotics. UTI, acute, due to E coli, present on admission * As evidence by urine culture * Rocephin 2 g in ED * Continue Rocephin * NS at 60 cc/HR * Ordered CXR, blood cultures Weakness, generalized, secondary to UTI, acute, present on admission * PT/OT consult * Fall precautions Leukopenia, with thrombocytopenia, chronic, present on admission * Admit WBC 2.7, PLT 107 * Baseline WBC 2.9-4, PLT 88-149 * Trend CBC Atrial fibrillation, active, chronic/permanent, on chronic Coumadin, present on admission * INR goal 2-3 * Continue Coumadin, carvedilol * Patient on telemetry CAD, chronic, pulmonary hypertension, present on admission * Continue carvedilol, eplerenone Diastolic Chronic HFpEF, chronic, present on admission * Continue metolazone, Lasix, potassium * Last echo 06/27, EF 55% BPH, active, chronic, present on admission * Continue finasteride, alfuzosin * Bladder scans as needed to monitor for retention Crohn's colitis disease/IBD, chronic, present on admission * Continue mesalamine Hyperlipidemia, mixed, chronic, present on admission * continue simvastatin 20 mg Anemia, iron deficiency, chronic, present on admission * Continue ferrous sulfate * Admit HGB 9, HCT 28 * Baseline HGB 9.3 - 10.9 Osteoarthritis, with muscle spasms, chronic, present on admission * Continue Flexeril GERD, chronic, present on admission * Continue omeprazole Obesity, moderate, acute on chronic, present on admission * As evidence by BMI 37 * dietary consult ordered regarding nutritional education and information for dietary, lifestyle, exercise, and weight changes. * the patient is at much higher risk for medical and surgical complications due to obesity as it relates to chronic illnesses:, and acute illness. The bonifacio ent's obesity increases the difficulty and complexity of medical and/or surgical interventions, management and increases the chances of poor outcome such as morbidity and mortality as well as impaired wound healing. Code status:Full Surrogate decision maker: Italia Powell DVT/VTE prophylaxis: Coumadin and SCDs Disposition: Patient admitted for observation IV fluids and antibiotics, expected length of stay not to exceed 2 midnights. I have utilized all available immediate resources to obtain, update, or review the patient's current medications. I confirmed that the patient's advanced care plan is present, Code status is documented and/or surrogate decision maker is listed in the patient's medical record. I have personally reviewed patient's chart notes from PCP, specialists, diagnostic imaging, and laboratory results.
[2023-01-13 02:13] LABS: Magnesium 2.3 mg/dL (1.6-2.3)
[2023-01-13] MEDS: SODIUM CHLORIDE 0.9% 1,000 ML 60 ML IV (03:30)
--- NOTE | 2023-01-13 03:48 | DI.US.S_ITS ---
PROCEDURE: US SCROTUM INDICATIONS: ENLARGED SCROTUM TECHNIQUE: Real-time scanning was performed of the scrotum and testicles, with image documentation. Color and pulse Doppler interrogation was performed of both testicles. COMPARISON: [facility], , US SCROTUM, 01/04/2020, 14:47. FINDINGS: Right: Testicle is normal in size at 3.5 x 2.4 x 2.1 cm, and heterogeneous in echotexture. Epididymis is normal in overall size and morphology. Right epididymis measures 1.4 cm. Heterogeneous echotexture. Severe hydrocele. No varicoceles. Right scrotal wall thickness measures 1.4 cm. Left: Testicle is normal in size at 2.9 x 2.2 x 1.9 cm, and heterogeneous in echotexture. No solid mass. Left testicle cyst cluster measuring 2.2 x 1.5 x 1.4 cm, mildly increased compared to 2020. No internal vascularity. Epididymis is normal in overall size and morphology. Left epididymis measures 1.3 cm. Heterogeneous echotexture. Moderate to severe hydrocele. No varicoceles. Left scrotal wall thickness measures 1.8 cm. Doppler: Color and pulse Doppler demonstrate normal and symmetric arterial flow in both testicles. IMPRESSION: 1. Severe right hydrocele. Moderate to severe left hydrocele. Increased compared to 2020. 2. Bilateral scrotal wall thickening. 3. Left testicle cyst cluster measuring 2.2 cm is increased in size compared to 2020. No suspicious blood flow. 4. No varicocele identified. Dictated by: Devon Rodney M.D. on 01/13/2023 at 8:16 Approved by: Devon Rodney M.D. on 01/13/2023 at 8:23
[2023-01-13] MEDS: SENNOSIDES 8.6 MG TABLET 17.2 MG PO ×2 (04:26→21:01)
--- NOTE | 2023-01-13 04:32 | PC.WOUNDPHOT ---
Skin assessment photos. External catheter w/ leg bag.
[2023-01-13 06:41] LABS: Add Manual Diff / Slide Review NO; Basophils Absolute Auto 0 /uL (0-100); Basophils Percent Auto 0.8 % (0-2); Eosinophils Absolute Auto 100 /uL (0-450); Eosinophils Percent Auto 2.1 % (2-4); Hematocrit 28.1 % (41-53); Lymphocytes Absolute Auto 400 /uL (1100-4500); Lymphocytes Percent Auto 13.3 % (25-40); Mean Corpuscular HGB Conc 32.1 % (30-36); Mean Corpuscular Hemoglobin 27.7 PG (26-34); Mean Corpuscular Volume 86.2 fL (80-100); Monocytes Absolute Auto 500 /uL (0-900); Monocytes Percent Auto 17.1 % (3-14); Neutrophils Absolute Auto 1800 /uL (1500-7000); Neutrophils Percent Auto 66.7 % (50-75); Platelet Count 101 X10^3/uL (150-400); Red Blood Cell Count 3.26 X10^6/uL (4.5-5.9); Red Cell Distribution Width 15.3 % (11.6-14.8); White Blood Cell Count 2.8 X10^3/uL (4.5-11.0)
[2023-01-13 06:47] LABS: INR 1.3 (0.9-1.3); Prothrombin Time 15.2 SECONDS (10.1-12.7)
[2023-01-13 06:52] LABS: Alanine Aminotransferase 22 IU/L (<50); Albumin 3.5 g/dL (3.5-5.0); Albumin Globulin Ratio 1.3 (1.0-2.8); Alkaline Phosphatase 76 U/L (38-126); Aspartate Aminotransferase 31 IU/L (17-59); Bilirubin Total 0.3 mg/dL (0.2-1.3); Blood Urea Nitrogen 18 mg/dL (9-20); Calcium 8.6 mg/dL (8.4-10.2); Chloride 93 mmol/L (98-107); Estimated Glomerular Filt Rate > 60 mL/min (>60); Globulin 2.8 g/dL (1.7-4.1); Glucose 109 mg/dL (80-110); HEMOLYSIS < 15 (0-50); Potassium 4.3 mmol/L (3.4-5.1); Sodium 135 mmol/L (137-145); Total Protein 6.3 g/dL (6.3-8.2)
[2023-01-13 07:01] LABS: Carbon Dioxide 39 mmol/L (22-32); NT-proBNP (BNP-Adult 18+) 3110 pg/mL (<450)
--- NOTE | 2023-01-13 08:00 | DI.RAD.S_ITS ---
PROCEDURE: XR CHEST 1V INDICATIONS: Weakness TECHNIQUE: One view of the chest was acquired. COMPARISON: [facility], CR, XR CHEST 1V, 01/06/2023, 4:05. [facility], CR, XR CHEST 1V, 09/30/2022, 2:50. FINDINGS: Surgical changes and devices: Aortic valve replacement. Left atrial appendage clip. Post median sternotomy and CABG. Lungs and pleura: No consolidation. No pleural effusions or pneumothorax. Mediastinum: Mediastinal contours appear unchanged. Heart size is prominent. Bones and chest wall: No suspicious bony lesions. Overlying soft tissues appear unremarkable. IMPRESSION: No acute cardiopulmonary abnormality. Dictated by: Devon Rodney M.D. on 01/13/2023 at 8:23 Approved by: Devon Rodney M.D. on 01/13/2023 at 8:25
[2023-01-13] MEDS: ISOSORBIDE MONONITRATE ER 30 MG TABLET PO (09:28)
[2023-01-13] MEDS: FERROUS SULFATE 325 MG TABLET PO ×2 (09:28→21:01)
[2023-01-13] MEDS: PANTOPRAZOLE DR 20 MG TABLET PO (09:28)
[2023-01-13] MEDS: predniSONE 5 MG TABLET 10 MG PO (09:28)
[2023-01-13] MEDS: FINASTERIDE 5 MG TABLET PO (09:28)
[2023-01-13] MEDS: cefTRIAXone 1,000 MG in SODIUM CHLORIDE 0.9% 100 ML 200 MG IV (09:29)
[2023-01-13] MEDS: TAMSULOSIN 0.4 MG CAPSULE PO (09:33)
--- NOTE | 2023-01-13 09:47 | OT.IP.EVAL ---
Past Medical History (Last Reviewed 01/13/23 @ 02:14 by JUAN Arteaga) Asthma BPH w urinary obs/LUTS Chicken pox Chronic anticoagulation Chronic atrial fibrillation Chronic diastolic CHF (congestive heart failure), NYHA class 1 Colon polyps Coronary artery disease Crohn's disease Diverticular disease Easy bruisability Essential hypertension Fractures Hearing loss Hemorrhoid History of colonic polyps History of urinary incontinence (~2018) Measles Mixed hyperlipidemia Mumps Myocardial infarction Obesity Osteoarthritis Positive PPD Primary osteoarthritis involving multiple joints Pulmonary hypertension Right inguinal hernia Tinnitus Vision disorder Surgical History (Last Reviewed 01/13/23 @ 02:14 by JUAN Arteaga) Anesthesia H/O mitral valve replacement (~03/2017) Hx of heart artery stent (~1994) Occupational Therapy Inpatient Evaluation/Re-Eval M1 PT/OT-IP Prior Functional Status Start: 01/13/23 07:52 Freq: NEEDED Status: Active Protocol: Document 01/13/23 11:51 CGR (Rec: 01/13/23 12:04 CGR [id number]) Medical Review Prior Functional Status Medical History Reviewed Yes Communication Pt is an effective verbal communicator. Mobility and Gait B SPC and 4WW when ambulating around home. Activities of Daily Living and IADL's Pt states he was IND or mod I for all ADLs. Prior Functional Level (Other details) Pt normally moves around home with his 4WW. He typically does some of the cooking and helps take care of his . His daughter and son in law live next door and are able to assist him and his daily . His grand dunilser also assists with driving and errands. Social History Household Members spouse Living Arrangements House Number of Floors (Floors) One Floor Number of Stairs To Enter/Railing? 1 step in the front of the house. 2 steps in the back of the house. Ramp is an option in the back. Home Environment Standard Height Toilet,Walk in Shower,Ramp Home Equipment Four Wheel Walker,Straight Cane,Lift Recliner,Grab Bars Near Toilet Employment Status Retired Additional Social History Comment Pt has a flat bed. M2 OT-IP Current Condition Start: 01/13/23 11:51 Freq: Status: Active Protocol: Document 01/13/23 11:51 CGR (Rec: 01/13/23 12:04 CGR [id number]) Occupational Therapy Current Condition Current Condition Evaluation Date 01/13/23 Treatment Diagnosis UTI Diagnosis Onset Date 01/13/23 M3 OT- IP Subjective and Pain Start: 01/13/23 11:51 Freq: Status: Active Protocol: Document 01/13/23 11:51 CGR (Rec: 01/13/23 12:04 [facility] [id number]) OT- Subjective Occupational Therapy Visit Type Type Initial Evaluation Visit Start Time 09:28 Visit Stop Time 09:47 Total Visit Minutes 19 OT Pain Assessment Pain When Pain Assessed During Mobility Pain Present Pain Present Pain Reported Location Right Knee Scale Used did not rate Pain Behaviors Facial Grimacing,Guarding Management Techniques Distraction,Modification of Treatment,Re-positioning, Timing of Activity with Medications M4 OT- IP ADL's Start: 01/13/23 11:51 Freq: Status: Active Protocol: Document 01/13/23 11:51 CGR (Rec: 01/13/23 12:04 [facility] [id number]) OT [id number] Comments OT Self-Feeding Comments Not meal time OT ADL-Grooming Comments OT Grooming Comments not performed, pt fatigued after transfer to chair OT ADL-Oral Care Comments Oral Care Comments not performed, pt fatigued after transfer to chair OT ADL-Dressing General Eval Lower Body Dressing Ability Total Assistance Areas Needing Assistance Shoes Comments OT Dressing Comments slip on shoes, pt with BLE edema that would be difficult to use hospital socks. OT ADL-Toileting Comments OT Toileting Comments not performed OT ADL-Bathing Comments OT Bathing Comments not performed M5 OT- IP IADL's Start: 01/13/23 11:51 Freq: Status: Active Protocol: Document 01/13/23 11:51 CGR (Rec: 01/13/23 12:04 [facility] [id number]) OT-Instrumental Activities of Daily Living Deficits IADL Deficits Identified No Deficits Home Safety Awareness Awareness of Need for Assistance at Home Good Awareness Ability to Problem Solve Emergency Able to Problem Solve Situations Medication Management Medication Management Caregiver Administers Money Management Money Management Caregiver Provides Assistance Meal Preparation Meal Preparation Caregiver Provides Assist Meal Preparation Comments Pt and daughter do cooking. Video Effects Editor Video Effects Editor Caregiver Provides Assist Driving Driving Caregiver Provides Assist Driving Comments Pt's daughter does all of the driving. M6 OT- IP Functional Cognition Start: 01/13/23 11:51 Freq: Status: Active Protocol: Document 01/13/23 11:51 CGR (Rec: 01/13/23 12:04 R [id number]) Cognitive Factors Limiting Selfcare Function Cognitive Ability Level of Alertness Alert Patient Orientation Name,Age,Birthday,Month,Date, Year,Day of Week,Place, Situation Attention Span Ability Capable of Focused Attention, Capable of Sustained Attention Ability to Follow Commands Able to Follow One Step Commands with Increased Time, Able to Follow One Step Commands with Repetition OT- Vision and Hearing OT- Hearing Assessment OT- Hearing Assessment Hearing Impaired,Use of Hearing Aids OT- Vision Assessment Visual Acuity Glasses All The Time Visual Attentiveness WFL Occular Pursuits WFL Visual Convergence WFL Vision Assessment Comments Pt wears bifocals M7 OT- IP Mobility and Balance Start: 01/13/23 11:51 Freq: Status: Active Protocol: Document 01/13/23 11:51 CGR (Rec: 01/13/23 12:04 R [id number]) OT- Bed Mobility Assessment Supine to Sit Supine to Sit Assist Minimal Assistance,1 Person Assistance Scooting Scooting to Edge of Bed Maximum Assistance,1 Person Assistance OT-Transfer Assessment Sit to and From Stand Sit to and from Stand Moderate Assistance Transfers Transfer Ability Moderate Assistance Technique Transfer Destination Bed,Chair Transfer Technique Stand Step Pivot Devices Transfer Assistive Devices Gait Belt,Front Wheeled Walker Comments Mobility Comments stand pivot to the chair at bedside. Pt with SOB with limited activity. OT- Balance Assessment Sitting Balance and Reactions Static Sitting Balance Ability Good Dynamic Sitting Balance Ability Fair M8 OT- IP Objective Assessments Start: 01/13/23 11:51 Freq: Status: Active Protocol: Document 01/13/23 11:51 CGR (Rec: 01/13/23 12:04 R [id number]) OT Gross Range of Motion Upper Extremity Range of Motion Assessment Within Functional Limits OT Strength Upper Extremity Strength Assessment Within Functional Limits Comments Strength Comments 4/5 OT- Coordination Assessment Upper Extremity Finger to Nose Test Within Functional Limits Finger Tapping Test Within Functional Limits OT-Muscle Tone Assessment Muscle Tone WNL Yes OT Sensation Assessment Edema Edema Present Edema Comments BLE edema, greater to the R than L M9 OT- IP Assessment and Plan Start: 01/13/23 11:51 Freq: Status: Active Protocol: Document 01/13/23 11:51 CGR (Rec: 01/13/23 12:04 CGR [id number]) OT Summary Assessment and Plan Potential Rehabilitation Potential Good Analytic Complexity at Evaluation Moderate Summary OT Impairments Pain,Strength,Balance, Functional Mobility,Grooming, Dressing,Toileting,Bathing, Toilet Transfers,Shower Transfers,Activity Tolerance Progress Towards Goals Slow Progress due to Medical Issues,Slow Progress due to Activity Tolerance Assessment Summary Pt presents as a moderate complexity evaluation s/p admit for UTI. Pt demonstrates significant LE edema and fatigue with minimal activity. Per family, pt is typically able to do much more. Pt will benefit from OT services in the hospital and likely home health upon discharge. Goals Self-Feeding Goal Independent Grooming Goal Independent Dressing Goal Independent Toileting Goal Independent Bathing Goal Independent Toilet Transfer Goal Independent Shower Transfer Goal Independent Days to Meet Goals 10 Frequency of Treatment Frequency Of Treatment Once a Day Treatment Plan OT Treatment Plan ADL Training,Functional Mobility,Therapeutic Exercises ,Patient/Family Education, Discharge Planning Other Treatment Recommendations and Next ADLs standing at sink if Treatment Focus endurance allows. Education on energy conservation. Discharge Recommendations OT Discharge Recommendations Home with Assistance Transportation Needs at Discharge Private Vehicle
--- NOTE | 2023-01-13 10:32 | PT.IIE ---
Surgical History (Last Reviewed 01/13/23 @ 02:14 by KANE ArteagaALLAN) Anesthesia H/O mitral valve replacement (~03/2017) Hx of heart artery stent (~1994) Medical History (Last Reviewed 01/13/23 @ 02:14 by KANE ArteagaALLAN) Asthma BPH w urinary obs/LUTS Chicken pox Chronic anticoagulation Chronic atrial fibrillation Chronic diastolic CHF (congestive heart failure), NYHA class 1 Colon polyps Coronary artery disease Crohn's disease Diverticular disease Easy bruisability Essential hypertension Fractures Hearing loss Hemorrhoid History of colonic polyps History of urinary incontinence (~2018) Measles Mixed hyperlipidemia Mumps Myocardial infarction Obesity Osteoarthritis Positive PPD Primary osteoarthritis involving multiple joints Pulmonary hypertension Right inguinal hernia Tinnitus Vision disorder Physical Therapy Inpatient Evaluation/Re-Eval M1 PT/OT-IP Prior Functional Status Start: 01/13/23 07:52 Freq: NEEDED Status: Active Protocol: Document 01/13/23 10:32 JH (Rec: 01/13/23 10:55 [id number]) Medical Review Prior Functional Status Medical History Reviewed Yes Mobility and Gait B SPC and 4WW when ambulating around home. Activities of Daily Living and IADL's pt uses 4WW to walk around his home and community. Prior Functional Level (Other details) Pt normally moves around home with his 4WW. He typically does some of the cooking and helps take care of his . His daughter and son in law live next door and are able to assist him and his daily . His grand dunilser also assists with driving and errands. Social History Household Members spouse Living Arrangements House Number of Floors (Floors) One Floor Number of Stairs To Enter/Railing? 1 step in the front of the house. 2 steps in the back of the house. Ramp is an option in the back. Home Environment Standard Height Toilet,Walk in Shower,Ramp Home Equipment Four Wheel Walker,Straight Cane,Lift Recliner,Grab Bars Near Toilet M2 PT-IP Current Condition Start: 01/13/23 07:52 Freq: NEEDED Status: Active Protocol: Document 01/13/23 10:32 AW (Rec: 01/13/23 10:53 AW [id number]) Physical Therapy Current Condition Current Condition Evaluation Date 01/13/23 Treatment Diagnosis UTI, generalized weakness, impaired mobility and gait Onset Date 01/11/23 M3 PT-IP Subjective Start: 01/13/23 07:52 Freq: NEEDED Status: Active Protocol: Document 01/13/23 10:32 JH (Rec: 01/13/23 10:55 JH [id number]) Subjective Physical Therapy Visit Type Visit Start Time 10:12 Visit Stop Time 10:32 Total Visit Minutes 20 Physical Therapy Visit Comments Patient Comments He reports that he feels fine this morning. M4 PT-IP Mobility and Gait Start: 01/13/23 07:52 Freq: NEEDED Status: Active Protocol: Document 01/13/23 10:32 AW (Rec: 01/13/23 10:53 AW [id number]) PT-Transfer Assessment Sit to and From Stand Sit to and from Stand Moderate Assistance,Maximum Assistance,1 Person Assistance ,Use of Upper Extremities Equipment Transfer Assistive Device Gait Belt,Front Wheeled Walker Orthotic/Prosthetic Devices or Brace: No Transfers Transfer Destination Chair Transfer Technique Stand Step Pivot Transfer Ability Level of Assist Moderate Assistance,1 Person Assistance,Use of Upper Extremities Comments Mobility Comments Don was sitting up in the chair as PT and SPT arrived. He attempted sit to stand from the chair with mod/max assist but could not gain traction with his houseshoes and was unable to fully stand. SPT removed mocassins and replaced with non slip socks and pt was able to stand to FWW with max assist provided and [place] assist to place hands on the walker. Once up, pt used FWW with min assist to ambulate 8 feet in the room before needing to sit due to fatigue with pt exhibiting dyspnea on exertion. VS were stable (see other assessments). Gait Assessment Gait Gait Assistance Required: Minimum Assistance Distance (Feet) 8 Assistive Devices Assistive Device Gait Belt,Front Wheeled Walker Orthotic/Prosthetic Devices or Brace: No Gait Deviations General Gait Pattern Antalgic,Decreased Stride Length,Decreased Feet Clearance,Flexed Trunk,Wide Based Gait Factors Limiting Gait Function Factors Limiting Gait Function Decreased Activity Tolerance, Decreased Strength,Limited Range of Motion,Pain, Respiratory Distress Comments Gait Comments Limited endurance due to dyspnea as well as underlying knee pain. Pt has slow and labored movement. Pt's daughter in the room notes that gait quality today is much worse than usual. PT-Balance Assessment Sitting Balance and Reactions Static Sitting Balance Ability Good Dynamic Sitting Balance Ability Good Standing Balance and Reactions Static Standing Balance Ability Fair Dynamic Standing Balance Ability Fair Device Used FWW M5 PT-IP Objective Assessments Start: 01/13/23 07:52 Freq: NEEDED Status: Active Protocol: Document 01/13/23 10:32 JH (Rec: 01/13/23 10:55 JH [id number]) Gross Range of Motion Upper Extremity ROM Assessment Within Functional Limits Lower Extremity ROM Assessment Bilaterally Impaired Impairments B knees lack ext. Strength Upper Extremity Strength Assessment Bilaterally Impaired Lower Extremity Strength Assessment Bilaterally Impaired Comments Strength Comments All LE MMT was 3. pt was able to get to testing position but could not hold when pressure applied. UE was 3+ bilateral. Sensation Assessment Sensation Gross Sensation WNL Other Assessments Other Other Assessments vitals: BP 103/64. edema bilaterally LE, R worse than L. This is pt baseline. M6 PT-IP Treatment Start: 01/13/23 07:52 Freq: NEEDED Status: Active Protocol: Document 01/13/23 10:32 AW (Rec: 01/13/23 10:53 AW [id number]) Physical Therapy Treatment Education Education Provided Safety M7 PT-IP Assessment and Plan Start: 01/13/23 07:52 Freq: NEEDED Status: Active Protocol: Document 01/13/23 10:32 AW (Rec: 01/13/23 10:53 AW [id number]) PT Summary Assessment and Plan Potential Rehabilitation Potential Good Status of Condition at Evaluation Evolving Summary Impairments Pain,Balance,Bed Mobility, Transfers,Gait,Activity Tolerance Assessment Summary Tramaine is an 82 yo man admitted with generalized weakness and UTI. PMH includes atrial fibrillation, CAD, CHF , hypertension, hyperlipidemia , and asthma. Pt is modified independent at baseline with use of bilateral canes vs 4WW depending on the situation. He lives with his spouse in a single level home with ramped entrance. His daughter and son in law live next door. They provide pt's with assist for ADL's and pt for medication management, transportation. CLOF: Pt is found resting in the bedside chair with daughter in the room. BLE presents with significant but chronic edema and generalized weakness. Functionally, pt is requiring mod to max assist for sit to stand transfers and min assist for limited ambulation with FWW secondary to dyspnea on exertion and bilateral knee pain. Pt's daughter confirms that gait quality today is much slower and more labored than typical. Based on evaluation findings, PT recommends SNF for daily rehab activities at discharge. It is possible he may progress toward safe discharge home during his hospital course but if he were discharging today, would firmly recommend SNF. Will continue to assess. Goals Bed Mobility Goal Independent Transfer Goal Minimal Assistance,Front Wheeled Walker,Four Wheeled Walker Gait Goal Standby Assistance,Front Wheel Walker,Four Wheel Walker Gait Distance 100 Days to Meet Goals 10 Frequency of Treatment Frequency Of Treatment Once a Day Treatment Plan Physical Therapy Treatment Plan Bed Mobility Training,Transfer Training,Gait Training, Therapeutic Exercise,Balance Retraining,Discharge Planning, Hot or Cold Pack,Neuromuscular Re-ed Other Recommendations and Next Treatment assess bed mobility, continue Focus transfer training, ther ex for BLE strength Precautions Other Precautions RUIZ Recommendations To Nursing Amount of Assist Needed 1 Person Assist Discharge Recommendations PT Discharge Recommendations SNF Rehab Transportation Needs at Discharge Private Vehicle,Wheelchair/ Cabulance Treatment was provided by Jane Martinez, SPT and supervised by Sharron Serrato, PT. I personally reviewed this note and agree with its contents.
--- NOTE | 2023-01-13 11:14 | CM.DANOTE ---
DCP: Chart review for case, met with patient at bedside, they agree to case management assessment. Completed DCP assessment based on information available. Patient is an 82 year old admitted for UTI and weakness. Hx of CHF, CAD, TIA?s, Afib on warfarin. Daughter called into room at 0850 and agreed to meet with CM at 1030. Patient is alert, intermittently awake, falling asleep during assessment. Daughter relays that she has been primary support for both parents who live next door. She does all housekeeping, shopping, appointments (daughter also works full-time as a trouble lineman) her daughter (patients granddaughter Dillan) is also a supportive. As a family they do not have a local intermodal truck driver plan for aging in place. Plan: PT/OT eval. PCP: Barrera Roth, seen in last month according to daughter Payer: Medicare, [employer] DME: FWW, 4WW, 2 canes DCP: Will consider HH RN and or PT. Final plan pending MD assessment. Reshma Wyatt RN, CM Discharge Planning/Care Management Discharge Assessment Start: 01/13/23 11:04 Freq: Status: Active Protocol: Document 01/13/23 11:05 BQ (Rec: 01/13/23 11:08 BQ [id number]) Discharge Planning Assessment Assigned Reel Film Inspector Reshma Wyatt RN, CM DPOA/Assigned Designee Name Spouse Italia Medeiros primary, daughter Chasidy secondary, granddaughter Advance Directives? Yes Advance Directives on File No History Provided By Patient,Medical Record Has Patient been admitted in last 30 No days? Comment [facility] Prior Living Arrangements House Household Members spouse Type of transporation used prior to Relies on Others admit Independent with ADL's Yes Is patient alert and oriented? Yes: Very fatigued Needs Assistance With Home Chores / Shopping Caregiver for Another No DME Already Rented / Owned FWW / Walker,Cane Comment uses bilateral single point canes. states he was not using them when he twisted his knee this last time. Patient/Family Preference Home with Home Health Barriers to Discharge Yes Comment Weakness, falling asleep during conversation Discharge Plan Home with Home Health Transportation Arrangement Family available to provide transport at d/c Referrals Initiated Home Health If patient plan is home with home health TBD : Has signed face to face form been completed? Whiteboard Updated in Patient Room with Yes name and ext. # of Reel Film Inspector Review Status In Process Next Review Type Continued Stay Review
[2023-01-13] MEDS: FUROSEMIDE 20 MG/2 ML VIAL IV (12:20)
[2023-01-13] MEDS: MESALAMINE 500 MG 1000 EACH PO (21:00)
[2023-01-13] MEDS: ATORVASTATIN 20 MG TABLET 10 MG PO (21:01)
[2023-01-14 00:40] VITALS: BP 100/62; PULSE 66; RESP 18; TEMP 36.7; O2SAT 92
[2023-01-14] MEDS: MELATONIN 3 MG TABLET 9 MG PO (00:42)
[2023-01-14 04:00] VITALS: BP 94/54; PULSE 63; RESP 18; TEMP 36.6; O2SAT 92
[2023-01-14 06:09] LABS: Add Manual Diff / Slide Review NO; Basophils Absolute Auto 0 /uL (0-100); Basophils Percent Auto 0.6 % (0-2); Eosinophils Absolute Auto 100 /uL (0-450); Eosinophils Percent Auto 2.2 % (2-4); Hematocrit 27.3 % (41-53); Hemoglobin 8.8 g/dL (13.5-17.5); Lymphocytes Absolute Auto 400 /uL (1100-4500); Lymphocytes Percent Auto 13.7 % (25-40); Mean Corpuscular HGB Conc 32.2 % (30-36); Mean Corpuscular Hemoglobin 27.4 PG (26-34); Mean Corpuscular Volume 85.2 fL (80-100); Monocytes Absolute Auto 400 /uL (0-900); Neutrophils Absolute Auto 2000 /uL (1500-7000); Neutrophils Percent Auto 68.5 % (50-75); Platelet Count 101 X10^3/uL (150-400); Red Blood Cell Count 3.21 X10^6/uL (4.5-5.9); Red Cell Distribution Width 15.4 % (11.6-14.8); White Blood Cell Count 2.9 X10^3/uL (4.5-11.0)
[2023-01-14 06:14] LABS: INR 1.4 (0.9-1.3); Prothrombin Time 16.4 SECONDS (10.1-12.7)
[2023-01-14 06:19] LABS: Alanine Aminotransferase 20 IU/L (<50); Albumin 3.3 g/dL (3.5-5.0); Albumin Globulin Ratio 1.4 (1.0-2.8); Alkaline Phosphatase 73 U/L (38-126); Aspartate Aminotransferase 27 IU/L (17-59); BUN Creatinine Ratio 20.9 (6-22); Bilirubin Total 0.3 mg/dL (0.2-1.3); Blood Urea Nitrogen 18 mg/dL (9-20); Calcium 8.6 mg/dL (8.4-10.2); Chloride 91 mmol/L (98-107); Estimated Glomerular Filt Rate > 60 mL/min (>60); Globulin 2.4 g/dL (1.7-4.1); Glucose 98 mg/dL (80-110); HEMOLYSIS < 15 (0-50); Potassium 3.5 mmol/L (3.4-5.1); Sodium 134 mmol/L (137-145); Total Protein 5.7 g/dL (6.3-8.2)
[2023-01-14 06:25] LABS: Carbon Dioxide 35 mmol/L (22-32)
[2023-01-14 08:00] VITALS: BP 96/56; PULSE 64; RESP 17; TEMP 36.1; O2SAT 97
[2023-01-14] MEDS: FERROUS SULFATE 325 MG TABLET PO (09:15)
[2023-01-14] MEDS: PANTOPRAZOLE DR 20 MG TABLET PO (09:15)
[2023-01-14] MEDS: predniSONE 5 MG TABLET 10 MG PO (09:16)
[2023-01-14] MEDS: TAMSULOSIN 0.4 MG CAPSULE PO (09:16)
[2023-01-14] MEDS: ISOSORBIDE MONONITRATE ER 30 MG TABLET PO (09:16)
[2023-01-14] MEDS: Alfuzosin 10 mg tablet extended release 24 hr 10 EACH PO (09:16)
[2023-01-14] MEDS: MESALAMINE 500 MG 1000 EACH PO (09:17)
[2023-01-14] MEDS: cefTRIAXone 1,000 MG in SODIUM CHLORIDE 0.9% 100 ML 200 MG IV (09:17)
[2023-01-14] MEDS: FINASTERIDE 5 MG TABLET PO (09:18)
--- NOTE | 2023-01-14 09:50 | PT.IPTN ---
Current Diagnoses Urinary tract infection, site not specified (01/13/23) Physical Therapy Treatment Note M2 PT-IP Current Condition Start: 01/13/23 07:52 Freq: NEEDED Status: Active Protocol: Document 01/13/23 10:32 AW (Rec: 01/13/23 10:53 AW [id number]) Physical Therapy Current Condition Current Condition Evaluation Date 01/13/23 Treatment Diagnosis UTI, generalized weakness, impaired mobility and gait Onset Date 01/11/23 M3 PT-IP Subjective Start: 01/13/23 07:52 Freq: NEEDED Status: Active Protocol: Document 01/14/23 10:16 TS (Rec: 01/14/23 10:38 TS [id number]) Subjective Physical Therapy Visit Type Type Treatment Note Visit Start Time 09:50 Visit Stop Time 10:13 Total Visit Minutes 23 Number of METAL GRINDER Visits 1 Physical Therapy Visit Comments Patient Comments Pt reports he is feeling well today, reports having some SOB with mobility, would like to return home. He was agreeable to PT. M4 PT-IP Mobility and Gait Start: 01/13/23 07:52 Freq: NEEDED Status: Active Protocol: Document 01/14/23 10:16 TS (Rec: 01/14/23 10:38 TS [id number]) PT-Transfer Assessment Sit to and From Stand Sit to and from Stand Moderate Assistance,1 Person Assistance,Use of Upper Extremities Equipment Transfer Assistive Device Gait Belt,Front Wheeled Walker Orthotic/Prosthetic Devices or Brace: No Comments Mobility Comments Sit to stand x1 pt initially trying to use momentum to stand and feet sliding on floor, required ModA with cues for BUE support pushing from arms of chair. Pt states he has lift recliner at home he uses to stand. He ambulated with FWW ~100 close SBA with flexed posture and slow gait. He had no buckling or LOB but fatigues quickly and reports some lightheadedness, BP unremarkable. He performed stand to sit SBA with FWW and demonstrated good use of BUE for slow eccentric control into sitting in chair. Pt was left with call light nearby, all needs met, RN notified. Gait Assessment Gait Gait Assistance Required: Standby Assistance Distance (Feet) 100 Assistive Devices Assistive Device Gait Belt,Front Wheeled Walker Orthotic/Prosthetic Devices or Brace: No Gait Deviations General Gait Pattern Antalgic,Decreased Stride Length,Decreased Feet Clearance,Flexed Trunk,Wide Based Gait Factors Limiting Gait Function Factors Limiting Gait Function Decreased Activity Tolerance, Decreased Strength,Limited Range of Motion,Pain, Respiratory Distress Comments Gait Comments See mobility comments. Stair Climbing Assessment Comments Stair Climbing Comments Has a ramp entry. PT-Balance Assessment Sitting Balance and Reactions Static Sitting Balance Ability Good Dynamic Sitting Balance Ability Fair Standing Balance and Reactions Static Standing Balance Ability Fair Dynamic Standing Balance Ability Fair Device Used FWW M5 PT-IP Objective Assessments Start: 01/13/23 07:52 Freq: NEEDED Status: Active Protocol: Document 01/13/23 10:32 JH (Rec: 01/13/23 10:55 JH [id number]) Gross Range of Motion Upper Extremity ROM Assessment Within Functional Limits Lower Extremity ROM Assessment Bilaterally Impaired Impairments B knees lack ext. Strength Upper Extremity Strength Assessment Bilaterally Impaired Lower Extremity Strength Assessment Bilaterally Impaired Comments Strength Comments All LE MMT was 3. pt was able to get to testing position but could not hold when pressure applied. UE was 3+ bilateral. Sensation Assessment Sensation Gross Sensation WNL Other Assessments Other Other Assessments vitals: BP 103/64. edema bilaterally LE, R worse than L. This is pt baseline. M6 PT-IP Treatment Start: 01/13/23 07:52 Freq: NEEDED Status: Active Protocol: Document 01/14/23 10:16 TS (Rec: 01/14/23 10:38 TS [id number]) Physical Therapy Treatment Education Education Provided Safety M7 PT-IP Assessment and Plan Start: 01/13/23 07:52 Freq: NEEDED Status: Active Protocol: Document 01/14/23 10:16 TS (Rec: 01/14/23 10:38 TS [id number]) PT Summary Assessment and Plan Potential Rehabilitation Potential Good Summary Impairments Pain,Balance,Bed Mobility, Transfers,Gait,Activity Tolerance Progress Towards Goals Progressing Toward Goals Assessment Summary Pt is making some progress with his mobility. He continues to be ModA to stand from low surface of chair, pt attempts to use momentum to stand initially with feet slipping out from underneath him. He does report that he uses a lift recliner at home to stand. He progressed his gait to ~100' SBA with FWW. He has a flexed posture and slow gait but has no buckling or LOB. He did report some lightheadedness and some slight SOB with gait. PT at this time is recommending SNF vs Home with HHPT. Pt would benefit from SNF stay but pt would like to return home. He does have support from daughter and SANJU at home who live nearby. Daughter works but SANJU is currently home and pt reports SANJU could assist as needed. Goals Bed Mobility Goal Independent Transfer Goal Minimal Assistance,Front Wheeled Walker,Four Wheeled Walker Gait Goal Standby Assistance,Front Wheel Walker,Four Wheel Walker Gait Distance 100 Days to Meet Goals 10 Frequency of Treatment Frequency Of Treatment Once a Day Treatment Plan Physical Therapy Treatment Plan Bed Mobility Training,Transfer Training,Gait Training, Therapeutic Exercise,Balance Retraining,Discharge Planning, Hot or Cold Pack,Neuromuscular Re-ed Other Recommendations and Next Treatment assess bed mobility, continue Focus transfer training, ther ex for BLE strength Precautions Other Precautions RUIZ Recommendations To Nursing Amount of Assist Needed 1 Person Assist Discharge Recommendations PT Discharge Recommendations Home vs SNF Other Discharge Recommendations Pt has 4WW at home. Could benefit from having FWW. Transportation Needs at Discharge Private Vehicle,Wheelchair/ Cabulance
--- NOTE | 2023-01-14 10:51 | CM.DPNOTE ---
Addendum entered by Reshma Wyatt R.N. 01/14/23 11:51: CM team recieved call back from Myla at [facility] affirming that they can accept patient. Original Note: Met with patient to discsuss discharge plan. He states he really wants to get back home and agrees to home health. Denies preference between available HH companies either [facility] or [facility], and agrees to first available. Call to both HH companies and [facility] can start tomorrow. Luisa with [facility] states they have been on service previously and they agree to accept patient. Yancy CM casino assistant manager agrees to send packet, face to face document to [facility] today. Call to daughter Chasidy to inform that [facility] has accepted for HH services. She states she is pleased with the DC plan and will call her mom and her and update as one of them will be funeral driver home today.
--- NOTE | 2023-01-14 11:18 | OT.IP.TRT ---
Current Diagnoses Urinary tract infection, site not specified (01/13/23) Occupational Therapy Treatment Note M2 OT-IP Current Condition Start: 01/13/23 11:51 Freq: Status: Active Protocol: Document 01/13/23 11:51 CGR (Rec: 01/13/23 12:04 CGR [id number]) Occupational Therapy Current Condition Current Condition Evaluation Date 01/13/23 Treatment Diagnosis UTI Diagnosis Onset Date 01/13/23 M3 OT- IP Subjective and Pain Start: 01/13/23 11:51 Freq: Status: Active Protocol: Document 01/14/23 11:11 AMS (Rec: 01/14/23 11:18 AMS [id number]) OT- Subjective Occupational Therapy Visit Type Type Treatment Note Visit Start Time 10:45 Visit Stop Time 11:05 Total Visit Minutes 20 Occupational Therapy Visit Comments Patient Comments Patient denied any pain/ discomfort. Patient agreeable to work w/ OT and stand at sink for g/h. M4 OT- IP ADL's Start: 01/13/23 11:51 Freq: Status: Active Protocol: Document 01/13/23 11:51 CGR (Rec: 01/13/23 12:04 CGR [id number]) OT [id number] Comments OT Self-Feeding Comments Not meal time OT ADL-Grooming Comments OT Grooming Comments not performed, pt fatigued after transfer to chair OT ADL-Oral Care Comments Oral Care Comments not performed, pt fatigued after transfer to chair OT ADL-Dressing General Eval Lower Body Dressing Ability Total Assistance Areas Needing Assistance Shoes Comments OT Dressing Comments slip on shoes, pt with BLE edema that would be difficult to use hospital socks. OT ADL-Toileting Comments OT Toileting Comments not performed OT ADL-Bathing Comments OT Bathing Comments not performed M5 OT- IP IADL's Start: 01/13/23 11:51 Freq: Status: Active Protocol: Document 01/13/23 11:51 CGR (Rec: 01/13/23 12:04 CGR [id number]) OT-Instrumental Activities of Daily Living Deficits IADL Deficits Identified No Deficits Home Safety Awareness Awareness of Need for Assistance at Home Good Awareness Ability to Problem Solve Emergency Able to Problem Solve Situations Medication Management Medication Management Caregiver Administers Money Management Money Management Caregiver Provides Assistance Meal Preparation Meal Preparation Caregiver Provides Assist Meal Preparation Comments Pt and daughter do cooking. Twister Doffer Twister Doffer Caregiver Provides Assist Driving Driving Caregiver Provides Assist Driving Comments Pt's daughter does all of the driving. M6 OT- IP Functional Cognition Start: 01/13/23 11:51 Freq: Status: Active Protocol: Document 01/13/23 11:51 CGR (Rec: 01/13/23 12:04 CGR [id number]) Cognitive Factors Limiting Selfcare Function Cognitive Ability Level of Alertness Alert Patient Orientation Name,Age,Birthday,Month,Date, Year,Day of Week,Place, Situation Attention Span Ability Capable of Focused Attention, Capable of Sustained Attention Ability to Follow Commands Able to Follow One Step Commands with Increased Time, Able to Follow One Step Commands with Repetition OT- Vision and Hearing OT- Hearing Assessment OT- Hearing Assessment Hearing Impaired,Use of Hearing Aids OT- Vision Assessment Visual Acuity Glasses All The Time Visual Attentiveness WFL Occular Pursuits WFL Visual Convergence WFL Vision Assessment Comments Pt wears bifocals M7 OT- IP Mobility and Balance Start: 01/13/23 11:51 Freq: Status: Active Protocol: Document 01/13/23 11:51 CGR (Rec: 01/13/23 12:04 CGR [id number]) OT- Bed Mobility Assessment Supine to Sit Supine to Sit Assist Minimal Assistance,1 Person Assistance Scooting Scooting to Edge of Bed Maximum Assistance,1 Person Assistance OT-Transfer Assessment Sit to and From Stand Sit to and from Stand Moderate Assistance Transfers Transfer Ability Moderate Assistance Technique Transfer Destination Bed,Chair Transfer Technique Stand Step Pivot Devices Transfer Assistive Devices Gait Belt,Front Wheeled Walker Comments Mobility Comments stand pivot to the chair at bedside. Pt with SOB with limited activity. OT- Balance Assessment Sitting Balance and Reactions Static Sitting Balance Ability Good Dynamic Sitting Balance Ability Fair M8 OT- IP Objective Assessments Start: 01/13/23 11:51 Freq: Status: Active Protocol: Document 01/13/23 11:51 CGR (Rec: 01/13/23 12:04 CGR [id number]) OT Gross Range of Motion Upper Extremity Range of Motion Assessment Within Functional Limits OT Strength Upper Extremity Strength Assessment Within Functional Limits Comments Strength Comments 4/5 OT- Coordination Assessment Upper Extremity Finger to Nose Test Within Functional Limits Finger Tapping Test Within Functional Limits OT-Muscle Tone Assessment Muscle Tone WNL Yes OT Sensation Assessment Edema Edema Present Edema Comments BLE edema, greater to the R than L M9 OT- IP Assessment and Plan Start: 01/13/23 11:51 Freq: Status: Active Protocol: Document 01/14/23 11:11 AMS (Rec: 01/14/23 11:18 AMS [id number]) OT Summary Assessment and Plan Potential Rehabilitation Potential Good Summary Assessment Summary Patient denied pain/discomfort ; agreeable to work w/ OT and complete ADLs in standing at sink. Cueing to support safe transfers (pushing off of arm rest(s) versus using FWW); CGA to execute s-s (chair -> standing w/ FWW). Able to stand at sink for approx 9 minutes to brush teeth and wash face w/ support of countertop for balance predominantly w/ L hand. Independent w/ washing face and brushing teeth (including applying toothpaste to toothbrush). Phys assist provided for manipulating cap of small toothpaste tube and w / opening packaging toothbrush being stored in. Goals Self-Feeding Goal Independent Grooming Goal Independent Dressing Goal Independent Toileting Goal Independent Bathing Goal Independent Toilet Transfer Goal Independent Shower Transfer Goal Independent Days to Meet Goals 10 Treatment Plan Other Treatment Recommendations and Next Education on energy Treatment Focus conservation. Discharge Recommendations OT Discharge Recommendations Home with Assistance Transportation Needs at Discharge Private Vehicle
--- NOTE | 2023-01-14 12:03 | PM.DS.1 ---
History of Present Illness History of Present Illness Date Patient Seen: 01/14/23 Time Patient Seen: 12:04 Chief complaint: Generalized weakness UTI Narrative: Per admitting provider, Tramaine Powell is an 82 year old Male with a past medical history AVNRT post ablation, pulmonary HTN, TIA, heart catheterization, angioplasty, permanent chronic AFib on Coumadin, atrial clip, diastolic CHF, oa, CAD, BPH, chronic anemia, HDL, Crohn's colitis, GERD, and peripheral edema patient called EMS when he found he was too weak to stand up out of his chair at home. Patient normally ambulates with a walker. In the patient's chart was seen a urine culture from an unknown source that was taken in December that was positive for E coli, it appears patient was never notified or treated. Patient had been seen in the ED on 01/10/23 for knee pain & weakness a urine culture subsequently showed pansensitive E coli, Dr. Alvarado called in Keflex prescription on 01/10/2023 which the patient has been taking for approximately 3 days. U/A in the ED was positive sent for repeat culture. Patient notes that he is not had a bowel movement in 4 days, noted mild diffuse abdominal tenderness with palpation. On admit patient denies chest pain, shortness in breath, headache, changes in vision, difficulty swallowing, speech impairment, numbness, tingling, recent falls, head injury, LOC, fever, body aches, chills, cough, recent exposure to illness, nausea, vomiting, bowel changes, incontinence, melena, rashes, recent changes to medication, illness, injury, or trauma. Vitals at the time of admit temp 97.9?, 111/68, 64, 20, 99% on rm air. Patient's falling lab findings are baseline. WBC 2.7, H&H 9/28, PLT 107, sodium 134, Cl 92, bicarb 40, glucose 132. Patient admitted for UTI with generalized weakness for observation. Discharge Providers Provider Date of admission: 01/13/23 12:51 Discharge Date: 01/14/23 Primary care physician: Barrera Roth MD Consults: 01/13/23 02:01 Consult to Dietitian, Adult Routine Comment: Reason For Exam: BMI 37 Consult to Discharge Planning Routine Comment: Consult to Occupational Therapy Evaluate & Treat Comment: Physician Instructions: Evaluate and treat Consult to Physical Therapy Evaluate & Treat Comment: Physician Instructions: Evaluate and Treat 01/14/23 11:14 Consult to Home Health Routine Comment: Reason For Exam: Home health for RN, PT and REGISTERED MIDWIFE Discharge provider: Aniket Pedro DO Summary Hospital Course Discharge Diagnosis: UTI, acute, due to E coli, present on admission Weakness, generalized, secondary to UTI, acute, present on admission Leukopenia, with thrombocytopenia, chronic, present on admission Atrial fibrillation, active, chronic/permanent, on chronic Coumadin, present on admission CAD, chronic, pulmonary hypertension, present on admission Diastolic Chronic HFpEF, chronic, present on admission BPH, active, chronic, present on admission Crohn's colitis disease/IBD, chronic, present on admission Hyperlipidemia, mixed, chronic, present on admission Anemia, iron deficiency, chronic, present on admission Osteoarthritis, with muscle spasms, chronic, present on admission GERD, chronic, present on admission Obesity, moderate, acute on chronic, present on admission Hospital Course: Tramaine Powell is an 82 year old Male with a past medical history AVNRT post ablation, pulmonary HTN, TIA, heart catheterization, angioplasty, permanent chronic AFib on Coumadin, atrial clip, diastolic CHF, oa, CAD, BPH, chronic anemia, HDL, Crohn's colitis, GERD, and peripheral edema patient called EMS when he found he was too weak to stand up out of his chair at home.? Patient admitted for UTI with generalized weakness, also possible diastolic heart failure. He felt improved the following day after IV antibiotics and did well with therapies and was recommended for discharge home. He was diuresed and felt improved after a single dose of IV furosemide as well. He did improve much more quickly than expected based on presentation. It is not clear if this was due to initial fluid administration or possible acute on chronic heart failure. He can resume his home diuretic on discharge. Given failure of cephalexin as an outpatient, he was changed to augmentin based on prior urine cultures with repeat cultures growing same E. coli. His penile head also appeared irritated from home condom catheter on presentation, possibly contributing to his presentation. condom catheter was changed and there was no irritation evident at the time of discharge as well. Time Spent with Patient Time spent: Greater than 30 minutes Exam Vital Signs (past 8 hours): - 01/14/23 08:00 Temperature 97 F L Pulse Rate 64 Respiratory Rate 17 Blood Pressure 96/56 L Pulse Oximetry 97 Oxygen Flow Rate 0 Oxygen Delivery Method Room Air Oxygen Flow Rate 0 Narrative Exam Narrative: General: Patient is a well-developed, chronically ill appearing elderly male in no acute distress HEENT: Normocephalic, atraumatic, extraocular muscles intact, oral pharynx is clear and mucous membranes are moist. Neck is supple and symmetric, trachea is midline, no adenopathy, no thyroid enlargement, nontender, no masses palpated. Negative for JVD Chest: Equal chest rise without nasal flaring, retractions, tachypneic or labored breathing. Lungs: Auscultation of all lung [place] are clear without adventitious sounds, wheezes, rhonchi, or rales. Cardio: irregular rate and rhythm normal S1 & S2 Abdomen: S NT ND Musculoskeletal: Muscle strength and tone are equal, no deformity, crepitus, effusions, cyanosis, clubbing or edema present. Skin: Warm dry and intact without rashes, ulcerations or petechiae. Neuro: Alert and orientated x3, moves all extremities, sensation to touch intact, no gross deficits noted of cranial nerves. Psych: Patient has a well-kept appearance, appropriate affect, mental status attitude thought context and judgment are appropriate for age. Objective Labs 01/14/23 05:40 01/14/23 05:40 Labs: Laboratory Results - last 24 hr 01/14/23 01/14/23 01/14/23 05:40 05:40 05:40 WBC 2.9 L RBC 3.21 L Hgb 8.8 L Hct 27.3 L MCV 85.2 MCH 27.4 MCHC 32.2 RDW 15.4 H Plt Count 101 L Neut % (Auto) 68.5 Lymph % (Auto) 13.7 L [place] % (Auto) 15.0 H Eos % (Auto) 2.2 Baso % (Auto) 0.6 Neut # (Auto) 2000 Lymph # (Auto) 400 L [place] # (Auto) 400 Eos # (Auto) 100 Baso # (Auto) 0 PT 16.4 H INR 1.4 H Sodium 134 L Potassium 3.5 Chloride 91 L Carbon Dioxide 35 H BUN 18 Creatinine 0.86 Estimated GFR > 60 BUN/Creatinine Ratio 20.9 Glucose 98 Calcium 8.6 Total Bilirubin 0.3 AST 27 ALT 20 Alkaline Phosphatase 73 Total Protein 5.7 L Albumin 3.3 L Globulin 2.4 Albumin/Globulin Ratio 1.4 [facility] Medical History Asthma BPH w urinary obs/LUTS Chicken pox Chronic anticoagulation Chronic atrial fibrillation Chronic diastolic CHF (congestive heart failure), NYHA class 1 Colon polyps Coronary artery disease Crohn's disease Diverticular disease Easy bruisability Essential hypertension Fractures Hearing loss Hemorrhoid History of colonic polyps History of urinary incontinence (~2018) Measles Mixed hyperlipidemia Mumps Myocardial infarction Obesity Osteoarthritis Positive PPD Primary osteoarthritis involving multiple joints Pulmonary hypertension Right inguinal hernia Tinnitus Vision disorder Surgical History Anesthesia H/O mitral valve replacement (~03/2017) Hx of heart artery stent (~1994) Family History Mother Congestive heart failure Father Coronary artery disease Social History household members: spouse Smoking Status: Never smoker substance use type: does not use Type(s) of exercise: walking frequency: daily Discharge Plan Discharge Plan Patient Disposition: Home Health Service Provider Discharge Comment: Patient was admitted to the hospital with weakness, it is possible antiboitics were not effective but condom catheter was changed as well. Antibiotics for UTI were changed, he was also given small dose of IV diuretic with improvement as well. Discharge orders & Medications Prescriptions: New amoxicillin-pot clavulanate 875-125 mg tablet 1 tab PO BID 5 Days Qty: 10 0RF Continued albuterol sulfate [Proventil HFA] 90 MCG/PUFF HFA aerosol inhaler 2 puff INH PRN PRN (Reason: Shortness Of Breath) Qty: 0 mesalamine [Pentasa] 500 MG capsule, extended release 1,000 mg PO BID Qty: 0 calcium carbonate-vitamin D3 500 mg-2.5 mcg (100 unit) Tablet,Chewable 3 tab PO DAILY Qty: 0 warfarin 5 mg tablet See Rx Instructions .ROUTE .COMPLEX Qty: 90 3RF Rx Instructions: 5mg MWF and 2.5mg all other days, or as directed. simvastatin 40 mg tablet 20 mg PO BEDTIME tamsulosin 0.4 mg capsule 0.4 mg PO DAILY fluticasone propionate 50 mcg/actuation spray,suspension 1 spray intranasal DAILY PRN (Reason: allergy symptoms) acetaminophen 325 mg tablet 650 mg PO Q4H PRN (Reason: Pain) alfuzosin 10 mg tablet extended release 24 hr 10 mg PO DAILY Rx Instructions: administer after the same meal each day ascorbic acid (vitamin C) 500 mg tablet 500 mg PO DAILY metolazone 2.5 mg tablet 2.5 mg PO DAILY omeprazole 20 mg tablet,delayed release (DR/EC) 20 mg PO DAILY [id number] Ointment 1 ea topical DAILY PRN (Reason: Skin Irritation) ferrous sulfate 325 mg (65 mg iron) Tablet 325 mg PO BID nitroglycerin [Nitrostat] 0.4 mg Tablet, Sublingual 0.4 mg SUBLINGUAL Q5-15M PRN (Reason: Chest Pain) folic acid 1 mg Tablet 1 mg PO DAILY finasteride 5 mg Tablet 5 mg PO DAILY loratadine 10 mg Tablet 10 mg PO DAILY aspirin 81 MG tablet,delayed release (DR/EC) 81 mg PO DAILY torsemide 100 mg Tablet 100 mg PO DAILY eplerenone 50 mg Tablet 50 mg PO DAILY isosorbide mononitrate 60 mg Tablet Extended Release 24 Hr 60 mg PO DAILY potassium chloride 20 mEq Tablet Extended Release 20 meq PO TID carvedilol 12.5 mg Tablet 12.5 mg PO BID Rx Instructions: must administer with a meal/food Follow up/Referrals: Barrera Roth MD [Primary Care Provider] - Diet/Activity/Treatments Diet: Diet as Tolerated and Regular Activity: As tolerated no restirctions Catheter: Condom catheter Visit Report/Discharge Packet Stand Alone Forms: Patient Portal/API, Stroke Signs & Symptoms Discharge Data Primary Care Provider: Barrera Roth V Discharges patient from system. Discharge Date/Time: 01/14/23 14:00
--- NOTE | 2023-01-15 08:54 | CM.DPC ---
Call from Erika at [facility] stating they called the pt this morning to schedule seeing pt in the home today per request of DCP yesterday and family but spouse answered and stated she would like [facility] to talk to pt to confirm doing home visit today and pt currently sleeping. Erika states they will call later this morning and if pt declines home visit today they have availability tomorrow and just wanted DCP to know of their attempts to see pt shreya from discharge yesterday 01/14/23. STEVE Martinez
== END 2023-01-14 14:00 | disposition home or self-care (01) | DRG 690 ==
LOC: ED 01-13 01:30 → AC 01-13 01:31
PROVIDERS: Admitting Provider Nurse Practitioner Family; Emergency Provider Emergency Medicine; PCP Internal Medicine; Referring Provider Emergency Medicine; Visit Provider Nurse Practitioner Family
DX: N39.0 Urinary tract infection, site not specified (principal); I48.21 Permanent atrial fibrillation; I50.32 Chronic diastolic (congestive) heart failure; K50.90 Crohn's disease, unspecified, without complications; B96.20 Unspecified Escherichia coli [E. coli] as the cause of diseases classified elsewhere; I25.10 Atherosclerotic heart disease of native coronary artery without angina pectoris; I27.20 Pulmonary hypertension, unspecified; N40.0 Benign prostatic hyperplasia without lower urinary tract symptoms; E78.2 Mixed hyperlipidemia; D50.9 Iron deficiency anemia, unspecified; M19.90 Unspecified osteoarthritis, unspecified site; K21.9 Gastro-esophageal reflux disease without esophagitis; E66.9 Obesity, unspecified; D69.6 Thrombocytopenia, unspecified; D72.819 Decreased white blood cell count, unspecified; J45.909 Unspecified asthma, uncomplicated; I11.0 Hypertensive heart disease with heart failure; N50.89 Other specified disorders of the male genital organs; Z79.01 Long term (current) use of anticoagulants; Z68.34 Body mass index [BMI] 34.0-34.9, adult; Z98.890 Other specified postprocedural states
CPT/HCPCS: 36415; 71045; 76870; 80053; 81001; 83690; 83735; 83880; 85025; 85610; 87040; 87077; 87086; 87186; 93005; 96365; 97116; 97162; 97166; 97530; 97535; 99283; 99284; G0378; J0696; J1940

== ENCOUNTER 2023-01-15 23:04 | Inpatient (IN) | payer MEDICARE, OTHER, SELFPAY ==
[2023-01-13 03:23] VITALS: BMI 34.4
[2023-01-15 23:09] VITALS: BP 126/79; PULSE 72; O2SAT 89
[2023-01-15 23:13] VITALS: BP 126/79; PULSE 73; RESP 26; TEMP 36.8; O2SAT 89; BMI 33.8
--- NOTE | 2023-01-15 23:21 | PC.NURSE ---
patient is noticeably short of breathe. His lips are cyanotic. His lungs sound clear to distant in his left lobe throughout and his right lung sounds distant. He has a cough and his )O2 saturation is 89% on RA at triage
--- NOTE | 2023-01-15 23:24 | DI.CT.S_ITS ---
PROCEDURE: CT CHEST WO CON INDICATIONS: SOB/ low 02 TECHNIQUE: Noncontrast 5 mm thick sections acquired from the pulmonary apices to the posterior costophrenic angles. 1 mm lung window, 5 mm thick coronal and sagittal and 7 mm axial MIP reformats were then acquired. For radiation dose reduction, the following was used: automated exposure control, adjustment of mA and/or kV according to patient size. COMPARISON: None. FINDINGS: Image quality: Excellent. Lungs and pleura: No acute air space opacities. There are small bilateral pleural effusions and no pneumothorax. Central and peripheral airways are patent and normal in caliber. Mediastinum: Heart size is mildly enlarged. No pericardial effusion. No mediastinal adenopathy by size criteria. Thoracic aorta and central pulmonary arteries are normal in size. Esophagus is normal in caliber. No hiatal hernia. Bones and chest wall: No suspicious bony lesions. No vertebral body compression fractures. No axillary or supraclavicular adenopathy by size criteria. Thyroid gland is not well seen by this noncontrast technique . Abdomen: Visualized upper abdominal solid organs and bowel loops appear normal in the absence of contrast. IMPRESSION: No definite acute disease. Very small bilateral pleural effusions and mild cardiomegaly are noted. No pneumonia found. Dictated by: Ronnie Hatch M.D. on 01/16/2023 at 0:00 Approved by: Ronnie Hatch M.D. on 01/16/2023 at 0:02
--- NOTE | 2023-01-15 23:29 | DI.CT.S_ITS ---
PROCEDURE: CT HEAD/BRAIN WO CON INDICATIONS: Altered mental status/fall TECHNIQUE: Noncontrast 4.5 mm thick angled axial sections acquired from the foramen magnum to the vertex, with coronal and sagittal reformats. For radiation dose reduction, the following was used: automated exposure control, adjustment of mA and/or kV according to patient size. COMPARISON: [facility], CT, HEAD WITHOUT CONTRAST, 04/28/2017, 9:52. [facility], CT, HEAD WITHOUT CONTRAST, 11/28/2008, 12:48. FINDINGS: Image quality: Excellent. CSF spaces: Basal cisterns are patent. No extra-axial fluid collections. The ventricles are symmetric in size and shape. Brain: No intracranial bleeds or masses. There is cerebral volume loss for age, with resultant ventricular and sulcal prominence. There are periventricular and deep white matter chronic small vessel ischemic changes. There is intracranial internal carotid artery atherosclerosis. Skull and face: Calvarium and visualized facial bones appear intact, without suspicious lesions. Sinuses: Visualized sinuses and mastoids are clear. IMPRESSION: No definite acute disease. 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 Dictated by: Ronnie Hatch M.D. on 01/15/2023 at 23:54 Approved by: Ronnie Hatch M.D. on 01/15/2023 at 23:55
[2023-01-15 23:37] LABS: Add Manual Diff / Slide Review NO; Basophils Absolute Auto 0 /uL (0-100); Basophils Percent Auto 0.6 % (0-2); Eosinophils Absolute Auto 0 /uL (0-450); Eosinophils Percent Auto 1.2 % (2-4); Hematocrit 28.5 % (41-53); Hemoglobin 9.1 g/dL (13.5-17.5); Lymphocytes Absolute Auto 300 /uL (1100-4500); Lymphocytes Percent Auto 8.8 % (25-40); Mean Corpuscular Hemoglobin 27.5 PG (26-34); Monocytes Absolute Auto 400 /uL (0-900); Neutrophils Absolute Auto 2400 /uL (1500-7000); Neutrophils Percent Auto 76.4 % (50-75); Platelet Count 100 X10^3/uL (150-400); Red Blood Cell Count 3.31 X10^6/uL (4.5-5.9); Red Cell Distribution Width 15.4 % (11.6-14.8); White Blood Cell Count 3.2 X10^3/uL (4.5-11.0)
[2023-01-15 23:44] VITALS: PULSE 71; O2SAT 83
[2023-01-15 23:44] LABS: INR 1.4 (0.9-1.3); Prothrombin Time 16.1 SECONDS (10.1-12.7)
[2023-01-15 23:48] LABS: Alanine Aminotransferase 23 IU/L (<50); Albumin 3.6 g/dL (3.5-5.0); Albumin Globulin Ratio 1.2 (1.0-2.8); Alkaline Phosphatase 80 U/L (38-126); Aspartate Aminotransferase 32 IU/L (17-59); BUN Creatinine Ratio 24.7 (6-22); Bilirubin Total 0.6 mg/dL (0.2-1.3); Blood Urea Nitrogen 23 mg/dL (9-20); Calcium 8.8 mg/dL (8.4-10.2); Chloride 90 mmol/L (98-107); Estimated Glomerular Filt Rate > 60 mL/min (>60); Globulin 2.9 g/dL (1.7-4.1); Glucose 111 mg/dL (80-110); HEMOLYSIS < 15 (0-50); Potassium 4.3 mmol/L (3.4-5.1); Sodium 132 mmol/L (137-145); Total Protein 6.5 g/dL (6.3-8.2)
[2023-01-15 23:49] LABS: Lactate (Lactic Acid) 1.2 mmol/L (0.7-2.1)
--- NOTE | 2023-01-15 23:53 | ED_ITS ---
HPI - Fall <James Hodge MD - Last Filed: 01/17/23 03:22> General Chief Complaint: Fall Stated Complaint: GLF Time Seen by Provider: 01/15/23 23:29 Source: EMS Mode of arrival: EMS History of Present Illness HPI Narrative: Patient brought in by ambulance from home for complaints of weakness and dizziness. Denies any chest pain or abdominal pain. Patient discharged yesterday for hospitalization for UTI here. Patient was discharged home with Augmentin. He did take 1 dose of it today. Patient states he was walking in his house and became very tired and fatigued and dizzy and he did fall down but denies any injury from this. Patient has history of AFib and CHF. Denies any chest pain palpitations or limb swelling. Patient 89% room air on arrival. Improved to 97% with 2 L nasal cannula. Patient denies any history of COPD. Is not on any home oxygen. Patient is in no distress at this time Related Data Home Medications Medication Instructions Recorded Confirmed albuterol sulfate 90 mcg/actuation 2 puff INH PRN PRN Shortness Of 03/22/17 01/16/23 aerosol inhaler (Proventil HFA) Breath ##0 mesalamine 500 mg capsule,extended 1,000 mg PO BID ##0 03/24/17 01/16/23 release (Pentasa) calcium carbonate 500 mg-vitamin 3 tab PO DAILY ##0 03/31/17 01/16/23 D3 2.5 mcg (100 unit) chewable tablet aspirin 81 mg tablet,delayed 81 mg PO DAILY 05/18/18 01/16/23 release ferrous sulfate 325 mg (65 mg 325 mg PO BID 05/18/18 01/16/23 iron) tablet finasteride 5 mg tablet 5 mg PO DAILY 05/18/18 01/16/23 folic acid 1 mg tablet 1 mg PO DAILY 05/18/18 01/16/23 loratadine 10 mg tablet 10 mg PO DAILY 05/18/18 01/16/23 nitroglycerin 0.4 mg sublingual 0.4 mg sublingual Q5-15M PRN Chest 05/18/18 01/16/23 tablet (Nitrostat) Pain simvastatin 40 mg tablet 20 mg PO BEDTIME 12/07/21 01/16/23 fluticasone propionate 50 1 spray intranasal DAILY PRN 02/07/22 01/16/23 mcg/actuation nasal allergy symptoms spray,suspension acetaminophen 325 mg tablet 650 mg PO Q4H PRN Pain 04/24/22 01/16/23 alfuzosin 10 mg tablet,extended 10 mg PO DAILY 04/24/22 01/16/23 release 24 hr ascorbic acid (vitamin C) 500 mg 500 mg PO DAILY 04/24/22 01/16/23 tablet metolazone 2.5 mg tablet 2.5 mg PO DAILY 04/24/22 01/16/23 neomycin-polymyxin 1 ea topical DAILY PRN Skin 04/24/22 01/16/23 W-[id number]-[id number] top Irritation ointment omeprazole 20 mg tablet,delayed 20 mg PO DAILY 04/24/22 01/16/23 release tamsulosin 0.4 mg capsule 0.4 mg PO DAILY 06/13/22 01/16/23 carvedilol 12.5 mg tablet 12.5 mg PO BID 01/13/23 01/16/23 eplerenone 50 mg tablet 50 mg PO DAILY 01/13/23 01/16/23 isosorbide mononitrate 60 mg 60 mg PO DAILY 01/13/23 01/16/23 tablet,extended release 24 hr potassium chloride 20 mEq 20 meq PO TID 01/13/23 01/16/23 tablet,extended release torsemide 100 mg tablet 100 mg PO DAILY 01/13/23 01/16/23 Previous Rx's Medication Instructions Recorded warfarin 5 mg tablet See Rx Instructions .Route 06/17/22 .COMPLEX #90 tabs amoxicillin 875 mg-potassium 1 tab PO BID 5 days #10 tabs 01/14/23 clavulanate 125 mg tablet Allergies Allergy/AdvReac Type Severity Reaction Status Date / Time ibuprofen Allergy Mild NOT GOOD Verified 10/10/22 12:53 FOR STOMACH BLEEDING iodine Allergy Mild UNKNOWN Verified 10/10/22 12:53 Sulfa (Sulfonamide Allergy Mild BURNED A Verified 10/10/22 12:53 Antibiotics) HOLE THRU INTESTINES thallium-201 Allergy Mild BREAKS OUT Verified 10/10/22 12:53 IN BLOTCHES AND ITCHING terazosin Allergy Hypotension Verified 10/10/22 12:53 spironolactone AdvReac Verified 10/10/22 12:53 Review of Systems <James Hodge MD - Last Filed: 01/17/23 03:22> Review of Systems Narrative: GENERAL: negative chills, fatigue, malaise, fever, sweats. HEENT: negative sinus pain, ear pain, sore throat RESPIRATORY: negative dyspnea, cough CARDIOVASCULAR: negative chest pain, palpitations GASTROINTESTINAL: negative nausea, vomiting, abdominal pain : negative dysuria, frequency, hematuria MUSCULOSKELETAL: negative muscle or bony pain SKIN: negative rash, skin lesions NEUROLOGIC: Positive dizziness and weakness, negative numbness ROS Unobtainable: All systems reviewed & are unremarkable except as noted in HPI and below Patient History <James Hodge MD - Last Filed: 01/17/23 03:22> Medical History (Updated 01/16/23 @ 20:22 by Mark Yin MD) Asthma BPH w urinary obs/LUTS Chicken pox Chronic anticoagulation Chronic atrial fibrillation Chronic diastolic CHF (congestive heart failure), NYHA class 1 Colon polyps Coronary artery disease Crohn's disease Diverticular disease Easy bruisability Essential hypertension Fractures Hearing loss Hemorrhoid History of colonic polyps History of urinary incontinence (~2018) Measles Mixed hyperlipidemia Mumps Myocardial infarction Obesity Osteoarthritis Positive PPD Primary osteoarthritis involving multiple joints Pulmonary hypertension Right inguinal hernia Tinnitus Vision disorder Surgical History Anesthesia H/O mitral valve replacement (~03/2017) Hx of heart artery stent (~1994) Family History Mother Congestive heart failure Father Coronary artery disease Social History household members: spouse Smoking Status: Never smoker substance use type: does not use Type(s) of exercise: walking frequency: daily Smoking Status: Never smoker alcohol intake frequency: holidays/special occasions only Substance Use Type: does not use Exam <James oHdge MD - Last Filed: 01/17/23 03:22> Narrative Exam Narrative: GENERAL: in no distress, not toxic not dyspneic HEAD: Normocephalic. EYES: Pupils equal round ENT: Mucous membranes moist. NECK: Trachea midline. CARDIOVASCULAR: Irregular Regular rate and rhythm RESPIRATORY: Clear to auscultation. Breath sounds equal bilaterally. No wheezes, rales, or rhonchi. GASTROINTESTINAL: Abdomen soft, non-tender EXTREMITIES: No gross deformities. BACK: No flank tenderness. NEURO: AOx4. SKIN: Warm and dry PSYCH: Not anxious, is cooperative Initial Vital Signs Initial Vital Signs: Vital Signs Pulse Rate 72 01/15/23 23:09 Blood Pressure 126/79 01/15/23 23:09 Pulse Oximetry 89 L 01/15/23 23:09 <Rommel Gordillo MD - Last Filed: 01/16/23 19:15> Initial Vital Signs Initial Vital Signs: Vital Signs Pulse Rate 72 01/15/23 23:09 Blood Pressure 126/79 01/15/23 23:09 Pulse Oximetry 89 L 01/15/23 23:09 Course <James Hodge MD - Last Filed: 01/17/23 03:22> Orders Ordered: ED Orders 01/17/23 05:00 Basic Metabolic Panel DAILY Complete Blood Count AUTO DIFF DAILY Magnesium DAILY 01/18/23 05:00 Basic Metabolic Panel DAILY Complete Blood Count AUTO DIFF DAILY Magnesium DAILY 01/19/23 05:00 Basic Metabolic Panel DAILY Complete Blood Count AUTO DIFF DAILY Magnesium DAILY Acetaminophen (Acetaminophen 325 Mg Tablet) 650 mg PO Q6H PRN PRN Reason: Fever/Mild Pain (1-3) Carvedilol (Carvedilol 12.5 Mg Tablet) 12.5 mg PO BID [facility] Last Admin: 01/16/23 21:02 Dose: Not Given Documented By: FLAVIO Enoxaparin Sodium (Enoxaparin 100 Mg/Ml Syringe) 80 mg SUBCUT BID [facility] Last Admin: 01/16/23 21:00 Dose: 80 mg Documented By: FLAVIO Heparin Sodium (Porcine) (Heparin Flush (Cl/Picc/Mid-Line) 50 Unit/5 Ml Syringe) 50 unit IV PRN PRN PRN Reason: Flush Furosemide 60 mg/ Sodium (Chloride) 56 mls @ 112 mls/hr IV 0800,1800 [facility] Last Infusion: 01/16/23 19:34 Dose: 0 mls/hr Documented By: Admin: 01/16/23 18:27 Dose: 112 mls/hr Documented By: BUTCH Cefepime HCl 2 gm/ Sodium (Chloride) 100 mls @ 200 mls/hr IV Q12H [facility] Last Infusion: 01/16/23 19:31 Dose: 0 mls/hr Documented By: Admin: 01/16/23 17:16 Dose: 200 mls/hr Documented By: BUTCH Isosorbide Mononitrate (Isosorbide Mononitrate Er 30 Mg Tablet) 60 mg PO QACBREAK [facility] Mesalamine (Mesalamine 400 Mg Cap.Drtab.) 800 mg PO BID [facility] Last Admin: 01/16/23 21:02 Dose: Not Given Documented By: FLAVIO Naloxone HCl (Naloxone 0.4 Mg/Ml Vial) 0.2 mg IV Q2MIN PRN PRN Reason: Opiate Reversal Ondansetron HCl (Ondansetron 4 Mg/2 Ml Inj) 4 mg IV Q8HR PRN PRN Reason: Nausea And Vomiting Sodium Chloride (Sodium Chloride 0.9% Flush) 10 ml IV PRN PRN PRN Reason: Flush Sodium Chloride (Sodium Chloride 0.9% Flush) 10 ml IV BID [facility] Last Admin: 01/16/23 21:03 Dose: 10 ml Documented By: FLAVIO Discontinued Medications Amoxicillin/Clavulanate Potassium (Amoxicillin/Clav 875/125 Mg) 1 tab PO BID [facility] Stop: 01/20/23 20:59 Furosemide (Furosemide 40 Mg/4 Ml Vial) 20 mg IV NOW ONE Stop: 01/16/23 01:18 Last Admin: 01/16/23 02:53 Dose: 20 mg Documented By: RYLEY Furosemide (Furosemide 40 Mg/4 Ml Vial) 40 mg IV NOW ONE Stop: 01/16/23 10:51 Last Admin: 01/16/23 11:16 Dose: 40 mg Documented By: VIOLETA Fentanyl 1,000 mcg/ Dextrose 250 mls @ 14.685 mls/hr IV TITRATE [facility]; Protocol Propofol (Propofol) 1,000 mg in 100 mls @ 2.517 mls/hr IV TITRATE [facility]; Protocol Warfarin Protocol (Warfarin Per Pharmacy (Inr 2-3)) 1 request MISC NOW ONE Stop: 01/16/23 15:04 Last Admin: 01/16/23 19:34 Dose: Not Given Documented By: FLAVIO Vital Signs Vital signs: Vital Signs - 8 hr 01/16/23 12:00 01/16/23 13:44 01/16/23 13:30 Pulse Rate 74 76 Respiratory Rate 25 H Blood Pressure 108/66 Pulse Oximetry 97 98 Oxygen Delivery Method Nasal Cannula BiPAP Oxygen Flow Rate 2 Fraction of Inspired Oxygen 26 <Rommel Gordillo MD - Last Filed: 01/16/23 19:15> Course Course Narrative: Care was assumed from Dr. Hodge at change of shift. Patient was recently admitted recently for UTI. He was treated with IV Lasix for CHF during that admission. He was returned home, but fairly poorly. He could not support himself. Prior to these last 2 days, he was ambulatory at home with a walker. His weakness is severe. He has known CAD, status post MVR repair. He has chronic AFib with aortic valve insufficiency and severe tricuspid valve regurgitation. He is chronic CHF, in his recent visit to Cardiology he was changed from Lasix to torsemide. The patient was requiring oxygen when I arrived on shift. He has bilateral rales with 3+ peripheral edema. Patient indicates this edema is baseline for him. ABG showed pH 7.32 with pCO2 of 76 and O2 of 90. Lasix 4 mg IV was given, resulting in about 1 L of urine coming forth. I contacted Dr. Montes with his cardiology group at [facility]. The patient has severe tricuspid regurg, he is medical management only. He encouraged to continue diuresis and close inpatient management. A 2nd ABG showed pH is 7.29 with pCO2 of 81. BiPAP was initiated. Patient indicated he has do not intubate orders, he would accept CPR. He agrees to admission. I would previously discussed the case with Dr. Pedro, hospitalist. We will proceed with admission with the patient on BiPAP. Richard IZAGUIRRE 01:53 01/16/23 Orders Ordered: ED Orders 01/17/23 05:00 Basic Metabolic Panel DAILY Complete Blood Count AUTO DIFF DAILY Magnesium DAILY 01/18/23 05:00 Basic Metabolic Panel DAILY Complete Blood Count AUTO DIFF DAILY Magnesium DAILY 01/19/23 05:00 Basic Metabolic Panel DAILY Complete Blood Count AUTO DIFF DAILY Magnesium DAILY Acetaminophen (Acetaminophen 325 Mg Tablet) 650 mg PO Q6H PRN PRN Reason: Fever/Mild Pain (1-3) Carvedilol (Carvedilol 12.5 Mg Tablet) 12.5 mg PO BID [facility] Last Admin: 01/16/23 21:02 Dose: Not Given Documented By: FLAVIO Enoxaparin Sodium (Enoxaparin 100 Mg/Ml Syringe) 80 mg SUBCUT BID [facility] Last Admin: 01/16/23 21:00 Dose: 80 mg Documented By: FLAVIO Heparin Sodium (Porcine) (Heparin Flush (Cl/Picc/Mid-Line) 50 Unit/5 Ml Syringe) 50 unit IV PRN PRN PRN Reason: Flush Furosemide 60 mg/ Sodium (Chloride) 56 mls @ 112 mls/hr IV 0800,1800 [facility] Last Infusion: 01/16/23 19:34 Dose: 0 mls/hr Documented By: Admin: 01/16/23 18:27 Dose: 112 mls/hr Documented By: BUTCH Cefepime HCl 2 gm/ Sodium (Chloride) 100 mls @ 200 mls/hr IV Q12H [facility] Last Infusion: 01/16/23 19:31 Dose: 0 mls/hr Documented By: Admin: 01/16/23 17:16 Dose: 200 mls/hr Documented By: BUTCH Isosorbide Mononitrate (Isosorbide Mononitrate Er 30 Mg Tablet) 60 mg PO QACBREAK [facility] Mesalamine (Mesalamine 400 Mg Cap.Drtab.) 800 mg PO BID [facility] Last Admin: 01/16/23 21:02 Dose: Not Given Documented By: FLAVIO Naloxone HCl (Naloxone 0.4 Mg/Ml Vial) 0.2 mg IV Q2MIN PRN PRN Reason: Opiate Reversal Ondansetron HCl (Ondansetron 4 Mg/2 Ml Inj) 4 mg IV Q8HR PRN PRN Reason: Nausea And Vomiting Sodium Chloride (Sodium Chloride 0.9% Flush) 10 ml IV PRN PRN PRN Reason: Flush Sodium Chloride (Sodium Chloride 0.9% Flush) 10 ml IV BID [facility] Last Admin: 01/16/23 21:03 Dose: 10 ml Documented By: FLAVIO Discontinued Medications Amoxicillin/Clavulanate Potassium (Amoxicillin/Clav 875/125 Mg) 1 tab PO BID [facility] Stop: 01/20/23 20:59 Furosemide (Furosemide 40 Mg/4 Ml Vial) 20 mg IV NOW ONE Stop: 01/16/23 01:18 Last Admin: 01/16/23 02:53 Dose: 20 mg Documented By: RYLEY Furosemide (Furosemide 40 Mg/4 Ml Vial) 40 mg IV NOW ONE Stop: 01/16/23 10:51 Last Admin: 01/16/23 11:16 Dose: 40 mg Documented By: VIOLETA Fentanyl 1,000 mcg/ Dextrose 250 mls @ 14.685 mls/hr IV TITRATE [facility]; Protocol Propofol (Propofol) 1,000 mg in 100 mls @ 2.517 mls/hr IV TITRATE [facility]; Protocol Warfarin Protocol (Warfarin Per Pharmacy (Inr 2-3)) 1 request MISC NOW ONE Stop: 01/16/23 15:04 Last Admin: 01/16/23 19:34 Dose: Not Given Documented By: FLAVIO Vital Signs Vital signs: Vital Signs - 8 hr 01/16/23 12:00 01/16/23 13:44 01/16/23 13:30 Pulse Rate 74 76 Respiratory Rate 25 H Blood Pressure 108/66 Pulse Oximetry 97 98 Oxygen Delivery Method Nasal Cannula BiPAP Oxygen Flow Rate 2 Fraction of Inspired Oxygen 26 MDM - Fall <James Hodge MD - Last Filed: 01/17/23 03:22> Lab Data 01/16/23 10:10 01/16/23 10:10 Labs: Lab Results 01/15/23 01/15/23 01/15/23 Range/Units 23:25 23:25 23:25 WBC 3.2 L (4.5-11.0) X10^3/uL RBC 3.31 L (4.5-5.9) X10^6/uL Hgb 9.1 L (13.5-17.5) g/dL Hct 28.5 L (41-53) % MCV 86.0 (80-100) fL MCH 27.5 (26-34) PG MCHC 32.0 (30-36) % RDW 15.4 H (11.6-14.8) % Plt Count 100 L (150-400) X10^3/uL Neut % (Auto) 76.4 H (50-75) % Lymph % (Auto) 8.8 L (25-40) % [place] % (Auto) 13.0 (3-14) % Eos % (Auto) 1.2 L (2-4) % Baso % (Auto) 0.6 (0-2) % Neut # (Auto) 2400 (0011-1067) /uL Lymph # (Auto) 300 L (7460-1519) /uL [place] # (Auto) 400 (0-900) /uL Eos # (Auto) 0 (0-450) /uL Baso # (Auto) 0 (0-100) /uL PT 16.1 H (10.1-12.7) SECONDS INR 1.4 H (0.9-1.3) ABG pH (7.35-7.45) ABG pCO2 (35-45) mmHg ABG pO2 (80-100) mmHg ABG HCO3 (23-27) mmol/L ABG Total CO2 (23-27) mmol/L ABG O2 Saturation (95-100) % ABG Base Excess (-2-3) mmol/L FiO2 Sodium 132 L (137-145) mmol/L Potassium 4.3 (3.4-5.1) mmol/L Chloride 90 L (98-107) mmol/L Carbon Dioxide 39 H (22-32) mmol/L BUN 23 H (9-20) mg/dL Creatinine 0.93 (0.66-1.25) mg/dL Estimated GFR > 60 (>60) mL/min BUN/Creatinine Ratio 24.7 H (6-22) Glucose 111 H (80-110) mg/dL Lactate (0.7-2.1) mmol/L Calcium 8.8 (8.4-10.2) mg/dL Total Bilirubin 0.6 (0.2-1.3) mg/dL AST 32 (17-59) IU/L ALT 23 (<50) IU/L Alkaline Phosphatase 80 (38-126) U/L Total Creatine Kinase (55-170) U/L Troponin I 0.014 (0.01-0.034) ng/mL NT-Pro-B Natriuret Pep 4180 H (<450) pg/mL Total Protein 6.5 (6.3-8.2) g/dL Albumin 3.6 (3.5-5.0) g/dL Globulin 2.9 (1.7-4.1) g/dL Albumin/Globulin Ratio 1.2 (1.0-2.8) 01/15/23 01/16/23 01/16/23 Range/Units 23:25 10:10 10:10 WBC 3.2 L (4.5-11.0) X10^3/uL RBC 3.33 L (4.5-5.9) X10^6/uL Hgb 9.3 L (13.5-17.5) g/dL Hct 28.8 L (41-53) % MCV 86.6 (80-100) fL MCH 27.9 (26-34) PG MCHC 32.2 (30-36) % RDW 15.2 H (11.6-14.8) % Plt Count 99 L (150-400) X10^3/uL Neut % (Auto) 73.1 (50-75) % Lymph % (Auto) 9.5 L (25-40) % [place] % (Auto) 15.7 H (3-14) % Eos % (Auto) 1.0 L (2-4) % Baso % (Auto) 0.7 (0-2) % Neut # (Auto) 2400 (9643-6780) /uL Lymph # (Auto) 300 L (1389-2150) /uL [place] # (Auto) 500 (0-900) /uL Eos # (Auto) 0 (0-450) /uL Baso # (Auto) 0 (0-100) /uL PT (10.1-12.7) SECONDS INR (0.9-1.3) ABG pH (7.35-7.45) ABG pCO2 (35-45) mmHg ABG pO2 (80-100) mmHg ABG HCO3 (23-27) mmol/L ABG Total CO2 (23-27) mmol/L ABG O2 Saturation (95-100) % ABG Base Excess (-2-3) mmol/L FiO2 Sodium 134 L (137-145) mmol/L Potassium 3.8 (3.4-5.1) mmol/L Chloride 91 L (98-107) mmol/L Carbon Dioxide 39 H (22-32) mmol/L BUN 24 H (9-20) mg/dL Creatinine 0.85 (0.66-1.25) mg/dL Estimated GFR > 60 (>60) mL/min BUN/Creatinine Ratio 28.2 H (6-22) Glucose 133 H (80-110) mg/dL Lactate 1.2 (0.7-2.1) mmol/L Calcium 8.8 (8.4-10.2) mg/dL Total Bilirubin (0.2-1.3) mg/dL AST (17-59) IU/L ALT (<50) IU/L Alkaline Phosphatase (38-126) U/L Total Creatine Kinase 28 L (55-170) U/L Troponin I 0.015 (0.01-0.034) ng/mL NT-Pro-B Natriuret Pep 5040 H (<450) pg/mL Total Protein (6.3-8.2) g/dL Albumin (3.5-5.0) g/dL Globulin (1.7-4.1) g/dL Albumin/Globulin Ratio (1.0-2.8) 01/16/23 01/16/23 Range/Units 10:32 13:15 WBC (4.5-11.0) X10^3/uL RBC (4.5-5.9) X10^6/uL Hgb (13.5-17.5) g/dL Hct (41-53) % MCV (80-100) fL MCH (26-34) PG MCHC (30-36) % RDW (11.6-14.8) % Plt Count (150-400) X10^3/uL Neut % (Auto) (50-75) % Lymph % (Auto) (25-40) % [place] % (Auto) (3-14) % Eos % (Auto) (2-4) % Baso % (Auto) (0-2) % Neut # (Auto) (7129-7084) /uL Lymph # (Auto) (4769-5223) /uL [place] # (Auto) (0-900) /uL Eos # (Auto) (0-450) /uL Baso # (Auto) (0-100) /uL PT (10.1-12.7) SECONDS INR (0.9-1.3) ABG pH 7.32 L 7.29 L* (7.35-7.45) ABG pCO2 76.4 H* 81.0 H* (35-45) mmHg ABG pO2 90 97 (80-100) mmHg ABG HCO3 40 H 39 H (23-27) mmol/L ABG Total CO2 42 H 42 H (23-27) mmol/L ABG O2 Saturation 96 96 (95-100) % ABG Base Excess 13.0 H 13.0 H (-2-3) mmol/L FiO2 26 26 Sodium (137-145) mmol/L Potassium (3.4-5.1) mmol/L Chloride (98-107) mmol/L Carbon Dioxide (22-32) mmol/L BUN (9-20) mg/dL Creatinine (0.66-1.25) mg/dL Estimated GFR (>60) mL/min BUN/Creatinine Ratio (6-22) Glucose (80-110) mg/dL Lactate (0.7-2.1) mmol/L Calcium (8.4-10.2) mg/dL Total Bilirubin (0.2-1.3) mg/dL AST (17-59) IU/L ALT (<50) IU/L Alkaline Phosphatase (38-126) U/L Total Creatine Kinase (55-170) U/L Troponin I (0.01-0.034) ng/mL NT-Pro-B Natriuret Pep (<450) pg/mL Total Protein (6.3-8.2) g/dL Albumin (3.5-5.0) g/dL Globulin (1.7-4.1) g/dL Albumin/Globulin Ratio (1.0-2.8) Imaging Data CT scan - head: Radiologist's Impression: [address] [address] [address] Scan Report Signed Patient: Tramaine Powell MR#: [id number] : 1940 Acct:[id number] Age/Sex: 82 / M Date of Service: 01/15/23 Loc: ED Accession Number: [id number] ?? Procedure: CT head/brain wo con Ordering Provider: James Hodge MD PROCEDURE:? CT HEAD/BRAIN WO CON ? INDICATIONS:? Altered mental status/fall ? TECHNIQUE:? Noncontrast 4.5 mm thick angled axial sections acquired from the foramen magnum to the vertex, with coronal and sagittal reformats.? For radiation dose reduction, the following was used:? automated exposure control, adjustment of mA and/or kV according to patient size.? ? COMPARISON:? [facility], CT, HEAD WITHOUT CONTRAST, 04/28/2017, 9:52.? [facility], CT, HEAD WITHOUT CONTRAST, 11/28/2008, 12:48. ? FINDINGS:? Image quality:? Excellent.? ? CSF spaces:? Basal cisterns are patent.? No extra-axial fluid collections.? The ventricles are symmetric in size and shape.? ? Brain:? No intracranial bleeds or masses.? There is cerebral volume loss for age, with resultant ventricular and sulcal prominence.? There are periventricular and deep white matter chronic small vessel ischemic changes.? There is intracranial internal carotid artery atherosclerosis.? ? Skull and face:? Calvarium and visualized facial bones appear intact, without suspicious lesions.? ? Sinuses:? Visualized sinuses and mastoids are clear.? ? IMPRESSION:? No definite acute disease.? 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 ? ? Dictated by: Ronnie Hatch M.D. on 01/15/2023 at 23:54 ? ? Approved by: Ronnie Hatch M.D. on 01/15/2023 at 23:55 ? CT scan - chest: Radiologist's Impression: [place] [id number] CT Scan Report Signed Patient: Tramaine Powell MR#: [id number] : 1940 Acct:[id number] Age/Sex: 82 / M Date of Service: 01/15/23 Loc: ED Accession Number: [id number] ?? Procedure: CT chest wo con Ordering Provider: James Hodge MD PROCEDURE:? CT CHEST WO CON ? INDICATIONS:? SOB/ low 02 ? TECHNIQUE: Noncontrast 5 mm thick sections acquired from the pulmonary apices to the posterior costophrenic angles.? 1 mm lung window, 5 mm thick coronal and sagittal and 7 mm axial MIP reformats were then acquired.? For radiation dose reduction, the following was used:? automated exposure control, adjustment of mA and/or kV according to patient size .? ? COMPARISON:? None. ? FINDINGS:? Image quality:? Excellent.? ? Lungs and pleura:? No acute air space opacities.? There are small bilateral pleural effusions and no pneumothorax.? Central and peripheral airways are patent and normal in caliber.? ? Mediastinum:? Heart size is mildly enlarged.? No pericardial effusion.? No mediastinal adenopathy by size criteria.? Thoracic aorta and central pulmonary arteries are normal in size.? Esophagus is normal in caliber.? No hiatal hernia.? ? Bones and chest wall:? No suspicious bony lesions.? No vertebral body compression fractures.? No axillary or supraclavicular adenopathy by size criteria.? Thyroid gland is not well seen by this noncontrast technique .? ? Abdomen:? Visualized upper abdominal solid organs and bowel loops appear normal in the absence of contrast.? ? IMPRESSION:? No definite acute disease.? Very small bilateral pleural effusions and mild cardiomegaly are noted.? No pneumonia found. ? ? Dictated by: Ronnie Hatch M.D. on 01/16/2023 at 0:00 ? ? Approved by: Ronnie Hatch M.D. on 01/16/2023 at 0:02 ? MDM Narrative Medical decision making narrative: Patient brought in by ambulance from home for complaints of weakness and dizziness. Denies any chest pain or abdominal pain. Patient discharged yesterday for hospitalization for UTI here. Patient was discharged home with Augmentin. He did take 1 dose of it today. Patient states he was walking in his house and became very tired and fatigued and dizzy and he did fall down but denies any injury from this. Patient has history of AFib and CHF. Denies any chest pain palpitations or limb swelling. Patient 89% room air on arrival. Improved to 97% with 2 L nasal cannula. Patient denies any history of COPD. Is not on any home oxygen. Patient is in no distress at this time After history and exam CBC CMP BNP EKG CT head CT chest MDM CC: Dizziness week Complicating co-morbidities: AFib CHF recent UTI admit Data collected from: Patient Medical records reviewed: Discharge summary from this hospital yesterday Differential considered: Includes but not limited to sepsis UTI dehydration CHF pneumonia Exam documented above, pertinent findings include: Awake alert oriented x4 at this time Lab Test results independently reviewed as above. Pertinent findings: WBC 3.2 hemoglobin 9.1 INR 1.4 sodium 132 potassium 4.3 BUN 23 creatinine 0.93 GFR greater than 60 BNP 4180 troponin 0.014 Independently reviewed EKG atrial fibrillation rate [address] elevation or depression Imaging studies independently reviewed: CT head CT chest no acute finding Consultations: 1:00 a.m.. Spoke with hospitalist practitioner, Yulissa, she was informed by Dr. Pedro not to admit this patient. Patient will need social work evaluation and administration evaluation for [facility] facility rehabilitation Treatments: Supplemental oxygen, Lasix Re-evaluations: Updated patient results. We will wait for social work and physical therapy eval in the morning. Discussion: I have already spoken with hospitalist, they would not admit patient. Despite needing supplemental oxygen We will need evaluation by social work and physical therapy. Diagnosis: Failure to thrive weakness CHF January 16 2023 7:00 a.m., signed out to Dr. Gordillo, social work and Physical therapy consult pending. Hospitalist group will not admit patient at this time. <Rommel Gordillo MD - Last Filed: 01/16/23 19:15> Lab Data Labs: Lab Results 01/15/23 01/15/23 01/15/23 Range/Units 23:25 23:25 23:25 WBC 3.2 L (4.5-11.0) X10^3/uL RBC 3.31 L (4.5-5.9) X10^6/uL Hgb 9.1 L (13.5-17.5) g/dL Hct 28.5 L (41-53) % MCV 86.0 (80-100) fL MCH 27.5 (26-34) PG MCHC 32.0 (30-36) % RDW 15.4 H (11.6-14.8) % Plt Count 100 L (150-400) X10^3/uL Neut % (Auto) 76.4 H (50-75) % Lymph % (Auto) 8.8 L (25-40) % [place] % (Auto) 13.0 (3-14) % Eos % (Auto) 1.2 L (2-4) % Baso % (Auto) 0.6 (0-2) % Neut # (Auto) 2400 (3568-9548) /uL Lymph # (Auto) 300 L (4833-6888) /uL [place] # (Auto) 400 (0-900) /uL Eos # (Auto) 0 (0-450) /uL Baso # (Auto) 0 (0-100) /uL PT 16.1 H (10.1-12.7) SECONDS INR 1.4 H (0.9-1.3) ABG pH (7.35-7.45) ABG pCO2 (35-45) mmHg ABG pO2 (80-100) mmHg ABG HCO3 (23-27) mmol/L ABG Total CO2 (23-27) mmol/L ABG O2 Saturation (95-100) % ABG Base Excess (-2-3) mmol/L FiO2 Sodium 132 L (137-145) mmol/L Potassium 4.3 (3.4-5.1) mmol/L Chloride 90 L (98-107) mmol/L Carbon Dioxide 39 H (22-32) mmol/L BUN 23 H (9-20) mg/dL Creatinine 0.93 (0.66-1.25) mg/dL Estimated GFR > 60 (>60) mL/min BUN/Creatinine Ratio 24.7 H (6-22) Glucose 111 H (80-110) mg/dL Lactate (0.7-2.1) mmol/L Calcium 8.8 (8.4-10.2) mg/dL Total Bilirubin 0.6 (0.2-1.3) mg/dL AST 32 (17-59) IU/L ALT 23 (<50) IU/L Alkaline Phosphatase 80 (38-126) U/L Total Creatine Kinase (55-170) U/L Troponin I 0.014 (0.01-0.034) ng/mL NT-Pro-B Natriuret Pep 4180 H (<450) pg/mL Total Protein 6.5 (6.3-8.2) g/dL Albumin 3.6 (3.5-5.0) g/dL Globulin 2.9 (1.7-4.1) g/dL Albumin/Globulin Ratio 1.2 (1.0-2.8) 01/15/23 01/16/23 01/16/23 Range/Units 23:25 10:10 10:10 WBC 3.2 L (4.5-11.0) X10^3/uL RBC 3.33 L (4.5-5.9) X10^6/uL Hgb 9.3 L (13.5-17.5) g/dL Hct 28.8 L (41-53) % MCV 86.6 (80-100) fL MCH 27.9 (26-34) PG MCHC 32.2 (30-36) % RDW 15.2 H (11.6-14.8) % Plt Count 99 L (150-400) X10^3/uL Neut % (Auto) 73.1 (50-75) % Lymph % (Auto) 9.5 L (25-40) % [place] % (Auto) 15.7 H (3-14) % Eos % (Auto) 1.0 L (2-4) % Baso % (Auto) 0.7 (0-2) % Neut # (Auto) 2400 (9535-6093) /uL Lymph # (Auto) 300 L (8541-1157) /uL [place] # (Auto) 500 (0-900) /uL Eos # (Auto) 0 (0-450) /uL Baso # (Auto) 0 (0-100) /uL PT (10.1-12.7) SECONDS INR (0.9-1.3) ABG pH (7.35-7.45) ABG pCO2 (35-45) mmHg ABG pO2 (80-100) mmHg ABG HCO3 (23-27) mmol/L ABG Total CO2 (23-27) mmol/L ABG O2 Saturation (95-100) % ABG Base Excess (-2-3) mmol/L FiO2 Sodium 134 L (137-145) mmol/L Potassium 3.8 (3.4-5.1) mmol/L Chloride 91 L (98-107) mmol/L Carbon Dioxide 39 H (22-32) mmol/L BUN 24 H (9-20) mg/dL Creatinine 0.85 (0.66-1.25) mg/dL Estimated GFR > 60 (>60) mL/min BUN/Creatinine Ratio 28.2 H (6-22) Glucose 133 H (80-110) mg/dL Lactate 1.2 (0.7-2.1) mmol/L Calcium 8.8 (8.4-10.2) mg/dL Total Bilirubin (0.2-1.3) mg/dL AST (17-59) IU/L ALT (<50) IU/L Alkaline Phosphatase (38-126) U/L Total Creatine Kinase 28 L (55-170) U/L Troponin I 0.015 (0.01-0.034) ng/mL NT-Pro-B Natriuret Pep 5040 H (<450) pg/mL Total Protein (6.3-8.2) g/dL Albumin (3.5-5.0) g/dL Globulin (1.7-4.1) g/dL Albumin/Globulin Ratio (1.0-2.8) 01/16/23 01/16/23 Range/Units 10:32 13:15 WBC (4.5-11.0) X10^3/uL RBC (4.5-5.9) X10^6/uL Hgb (13.5-17.5) g/dL Hct (41-53) % MCV (80-100) fL MCH (26-34) PG MCHC (30-36) % RDW (11.6-14.8) % Plt Count (150-400) X10^3/uL Neut % (Auto) (50-75) % Lymph % (Auto) (25-40) % [place] % (Auto) (3-14) % Eos % (Auto) (2-4) % Baso % (Auto) (0-2) % Neut # (Auto) (8665-7871) /uL Lymph # (Auto) (2980-0877) /uL [place] # (Auto) (0-900) /uL Eos # (Auto) (0-450) /uL Baso # (Auto) (0-100) /uL PT (10.1-12.7) SECONDS INR (0.9-1.3) ABG pH 7.32 L 7.29 L* (7.35-7.45) ABG pCO2 76.4 H* 81.0 H* (35-45) mmHg ABG pO2 90 97 (80-100) mmHg ABG HCO3 40 H 39 H (23-27) mmol/L ABG Total CO2 42 H 42 H (23-27) mmol/L ABG O2 Saturation 96 96 (95-100) % ABG Base Excess 13.0 H 13.0 H (-2-3) mmol/L FiO2 26 26 Sodium (137-145) mmol/L Potassium (3.4-5.1) mmol/L Chloride (98-107) mmol/L Carbon Dioxide (22-32) mmol/L BUN (9-20) mg/dL Creatinine (0.66-1.25) mg/dL Estimated GFR (>60) mL/min BUN/Creatinine Ratio (6-22) Glucose (80-110) mg/dL Lactate (0.7-2.1) mmol/L Calcium (8.4-10.2) mg/dL Total Bilirubin (0.2-1.3) mg/dL AST (17-59) IU/L ALT (<50) IU/L Alkaline Phosphatase (38-126) U/L Total Creatine Kinase (55-170) U/L Troponin I (0.01-0.034) ng/mL NT-Pro-B Natriuret Pep (<450) pg/mL Total Protein (6.3-8.2) g/dL Albumin (3.5-5.0) g/dL Globulin (1.7-4.1) g/dL Albumin/Globulin Ratio (1.0-2.8) <Rommel Gordillo MD - Last Filed: 01/16/23 19:15> Critical Care Time Critical Care Time: Yes Total Critical Care Time: 120 Attestation: Critical care time included extensive review of medical records, multiple interviews evaluation was the patient. Multiple clinical decisions. And multiple consultations including discussion the patient with admitting hospitalist. Discharge Plan Departure Patient Disposition: Admitted As Inpatient Clinical Impression: Weakness, Adult failure to thrive, Chronic a-fib, Essential hypertension, Tricuspid regurgitation CHF (congestive heart failure) Qualifiers: Heart failure type: combined systolic and diastolic Respiratory failure Qualifiers: Chronicity: acute Respiratory failure complication: hypercapnia Qualified Code(s): J96.02 - Acute respiratory failure with hypercapnia Admit Date/Time: 01/16/23 13:47 Admit Provider: Aniket Pedro
[2023-01-16] VITALS (27 sets, daily range): BP systolic 96–124; BP diastolic 51–72; PULSE 62–76; RESP 14–37; TEMP 36.1–37.1; O2SAT 77–100; BMI 33.8
[2023-01-16] LABS: NT-proBNP (BNP-Adult 18+) 4180 pg/mL (<450); Troponin I 0.014 ng/mL (0.01-0.034)
[2023-01-16 00:01] LABS: Carbon Dioxide 39 mmol/L (22-32)
[2023-01-16] MEDS: FUROSEMIDE 40 MG/4 ML VIAL 20 MG IV (02:53)
[2023-01-16 10:26] LABS: Add Manual Diff / Slide Review NO; Basophils Absolute Auto 0 /uL (0-100); Basophils Percent Auto 0.7 % (0-2); Eosinophils Absolute Auto 0 /uL (0-450); Hematocrit 28.8 % (41-53); Hemoglobin 9.3 g/dL (13.5-17.5); Lymphocytes Absolute Auto 300 /uL (1100-4500); Lymphocytes Percent Auto 9.5 % (25-40); Mean Corpuscular HGB Conc 32.2 % (30-36); Mean Corpuscular Hemoglobin 27.9 PG (26-34); Mean Corpuscular Volume 86.6 fL (80-100); Monocytes Absolute Auto 500 /uL (0-900); Monocytes Percent Auto 15.7 % (3-14); Neutrophils Absolute Auto 2400 /uL (1500-7000); Neutrophils Percent Auto 73.1 % (50-75); Platelet Count 99 X10^3/uL (150-400); Red Blood Cell Count 3.33 X10^6/uL (4.5-5.9); Red Cell Distribution Width 15.2 % (11.6-14.8); White Blood Cell Count 3.2 X10^3/uL (4.5-11.0)
--- NOTE | 2023-01-16 10:40 | PT.IIE ---
Surgical History (Last Reviewed 01/15/23 @ 23:55 by James Hodge MD) Anesthesia H/O mitral valve replacement (~03/2017) Hx of heart artery stent (~1994) Medical History (Last Reviewed 01/15/23 @ 23:55 by James Hodge MD) Asthma BPH w urinary obs/LUTS Chicken pox Chronic anticoagulation Chronic atrial fibrillation Chronic diastolic CHF (congestive heart failure), NYHA class 1 Colon polyps Coronary artery disease Crohn's disease Diverticular disease Easy bruisability Essential hypertension Fractures Hearing loss Hemorrhoid History of colonic polyps History of urinary incontinence (~2018) Measles Mixed hyperlipidemia Mumps Myocardial infarction Obesity Osteoarthritis Positive PPD Primary osteoarthritis involving multiple joints Pulmonary hypertension Right inguinal hernia Tinnitus Vision disorder Physical Therapy Inpatient Evaluation/Re-Eval M1 PT/OT-IP Prior Functional Status Start: 01/16/23 13:39 Freq: Status: Active Protocol: Document 01/16/23 10:40 AB (Rec: 01/16/23 14:01 [id number]) Medical Review Prior Functional Status Medical History Reviewed Yes Communication able to make needs known; [facility] Mobility and Gait pt was just admitted to the hospital 01/13/23 for UTI and d/c 'd 01/14/23. pt went home but was getting weaker and had a GLF. prior to first hospitalization, pt was modified independent with all mobilities and ambulation using a 4WW Social History Household Members spouse,children Living Arrangements House Number of Floors (Floors) One Floor Number of Stairs To Enter/Railing? ramp to enter Home Environment Standard Height Toilet,Walk in Shower Home Equipment Four Wheel Walker,Shower Seat with Backrest,Hand Held Shower ,Grab Bars Near Toilet,Grab Bars In Shower Additional Social History Comment pt has his spouse, daughter and SANJU to assist him at home M2 PT-IP Current Condition Start: 01/16/23 13:39 Freq: Status: Active Protocol: Document 01/16/23 10:40 AB (Rec: 01/16/23 14:01 AB [id number]) Physical Therapy Current Condition Current Condition Evaluation Date 01/16/23 Treatment Diagnosis GLF; CHF; difficulty in walking Onset Date 01/15/23 M3 PT-IP Subjective Start: 01/16/23 13:39 Freq: Status: Active Protocol: Document 01/16/23 10:40 AB (Rec: 07/13/23 14:01 [id number]) Subjective Physical Therapy Visit Type Type Initial Evaluation Visit Start Time 10:40 Visit Stop Time 11:18 Total Visit Minutes 38 Number of SHERIFF'S DETECTIVE Visits 0 Physical Therapy Visit Comments Patient Comments agreeable to do PT Therapy Pain Assessment Pain When Pain Assessed During Mobility Pain Present Pain Present Pain Reported Location Right Knee Scale Used pain scale not stated Pain Management Techniques Distraction,Modification of Treatment,Re-positioning, Timing of Activity with Medications M4 PT-IP Mobility and Gait Start: 01/16/23 13:39 Freq: Status: Active Protocol: Document 01/16/23 10:40 AB (Rec: 01/16/23 14:01 [id number]) PT-Bed Mobility Assessment Supine to Sit Supine to Sit Maximum Assistance Sit to Supine Sit to Supine Maximum Assistance,2 Person Assistance PT-Transfer Assessment Sit to and From Stand Sit to and from Stand Maximum Assistance,1 Person Assistance,Use of Upper Extremities Equipment Transfer Assistive Device Gait Belt Orthotic/Prosthetic Devices or Brace: No Comments Mobility Comments Checked with nurse and stated that pt was unable to sit up by himself when they attempted to move him. also stated that pt was not using his O2 at home but has one at home. pt supine in bed. daughter present during PT session. pt using O2 at 1.5L/min and O2 sat 95%. confirmed with daughter and stated that pt does not have O2 available at home. pt completed supine to sit max A and max cues. max A for scooting to EOB. O2 sat in sittin% completed sit to stand max A and cues . max A for standing balance using FWW for support with increase posterior trunk lean. cued to use FWW for support. instructed to do marching in place prior to walking and completed x 2 max A using FWW but unable to lift LLE up. O2 sat also decreased to 78%. instructed pt to sit down on EOB and take deep breaths O2 sat increased to 80%, increased to 87-88% after ~ 15 sec of resting. assisted back to bed and required max A x 2 for sit to supine. positioned pt in bed. call light and table placed within reach. Pt with c/o R knee pain and stated that R knee is needing sx. informed ER doctor regarding pt's mobility assistance, O2 sat decrease with activity and not safe to go home at this time. Gait Assessment Comments Gait Comments unable at this time PT-Balance Assessment Sitting Balance and Reactions Static Sitting Balance Ability Good Dynamic Sitting Balance Ability Fair Standing Balance and Reactions Static Standing Balance Ability Poor Dynamic Standing Balance Ability Poor Device Used FWW M5 PT-IP Objective Assessments Start: 01/16/23 13:39 Freq: Status: Active Protocol: Document 01/16/23 10:40 AB (Rec: 01/16/23 14:01 AB [id number]) Orientation Orientation/Cognition Level of Alertness Alert Orientation Name,Day of Week,Situation Language Function Ability Hard of Hearing Safety Awareness Decreased Safety Awareness Memory Description Short Term Impaired,Mcc Impaired Gross Range of Motion Lower Extremity ROM Assessment Within Functional Limits Strength Lower Extremity Strength Assessment Right Impaired Hip 2+/5 Knee 3+/5 Coordination Assessment Gross Coordination Gross Coordination WNL Sensation Assessment Sensation Gross Sensation WNL Muscle Tone Muscle Tone WNL Yes M6 PT-IP Treatment Start: 01/16/23 13:39 Freq: Status: Active Protocol: Document 01/16/23 10:40 AB (Rec: 01/16/23 14:01 AB [id number]) Physical Therapy Treatment Exercises Exercises Heel Slides Education Education Provided Safety M7 PT-IP Assessment and Plan Start: 01/16/23 13:39 Freq: Status: Active Protocol: Document 01/16/23 10:40 AB (Rec: 01/16/23 14:01 AB [id number]) PT Summary Assessment and Plan Potential Rehabilitation Potential Fair Status of Condition at Evaluation Evolving Summary Impairments Pain,ROM,Strength,Balance, Coordination,Sensation,Tone, Cognition,Bed Mobility, Transfers,Gait,Activity Tolerance Assessment Summary PT eval received from ED. Nurse stated that pt was needing a lot of assistance and unable to move much with them when they attempted but [facility] and PT eval order to assess safety d/ c and needs. pt was just admitted to the hospital 01/13 to 01/14/23. pt d/c'd home but unable to move safety and had a GLF at home. pt currently requiring max A x 1- 2 with bed mobility, max A for sit to stand but unable to ambulate at this time. pt is not safe to d/c home and will require SNF. Goals Bed Mobility Goal Minimal Assistance Transfer Goal Minimal Assistance,Front Wheeled Walker Gait Goal Minimal Assistance,Front Wheel Walker Gait Distance 50 Other Goals improve bed mobility, transfers and ambulation using FWW SBA ~ 150 ft Days to Meet Goals 10 Frequency of Treatment Frequency Of Treatment Once a Day Treatment Plan Physical Therapy Treatment Plan Bed Mobility Training,Transfer Training,Gait Training, Therapeutic Exercise,Balance Retraining,Discharge Planning, Hot or Cold Pack,Neuromuscular Re-ed,Coordination Retraining Precautions Other Precautions falls, O2 sat Recommendations To Nursing Amount of Assist Needed 2 Person Assist Discharge Recommendations PT Discharge Recommendations SNF Rehab Equipment Needed for Home Before FWW if pt goes home Discharge Transportation Needs at Discharge Wheelchair/Cabulance
[2023-01-16 10:42] LABS: PCO2 ABG 76.4 mmHg (35-45); pH ABG 7.32 (7.35-7.45)
[2023-01-16 10:43] LABS: HCO3 ABG 40 mmol/L (23-27); Oxygen Saturation ABG 96 % (95-100); PO2 ABG 90 mmHg (80-100); TCO2 ABG 42 mmol/L (23-27)
[2023-01-16 10:44] LABS: Fractionated Inspired Oxygen 26
[2023-01-16 10:51] LABS: BUN Creatinine Ratio 28.2 (6-22); Blood Urea Nitrogen 24 mg/dL (9-20); Calcium 8.8 mg/dL (8.4-10.2); Carbon Dioxide 39 mmol/L (22-32); Chloride 91 mmol/L (98-107); Creatine Kinase 28 U/L (55-170); Estimated Glomerular Filt Rate > 60 mL/min (>60); Glucose 133 mg/dL (80-110); HEMOLYSIS < 15 (0-50); Potassium 3.8 mmol/L (3.4-5.1); Sodium 134 mmol/L (137-145)
[2023-01-16 11:02] LABS: NT-proBNP (BNP-Adult 18+) 5040 pg/mL (<450); Troponin I 0.015 ng/mL (0.01-0.034)
[2023-01-16] MEDS: FUROSEMIDE 40 MG/4 ML VIAL IV (11:16)
--- NOTE | 2023-01-16 11:52 | PC.NURSE ---
pt de-satted to 77% on 2L NC w/ exertion while working with physical therapy.
[2023-01-16 13:27] LABS: pH ABG 7.29 (7.35-7.45)
[2023-01-16 13:28] LABS: Fractionated Inspired Oxygen 26; HCO3 ABG 39 mmol/L (23-27); Oxygen Saturation ABG 96 % (95-100); PO2 ABG 97 mmHg (80-100); TCO2 ABG 42 mmol/L (23-27)
--- NOTE | 2023-01-16 13:58 | CM.IDA ---
Initial DCP Assessment Patient is 82 y/o male who presents to ED via EMS after GLF last night. Patient recently discharged from on 01/14/23 after admission due to UTI and weakness. Patient has hx of CHF, CAD, TIAs, and AFib on [place]. Patient's PCP is Dr. Roth, patient sees Director Of Development And Marketing Dr. Hawk, [place] has Medicare and for Life Insurance FURNACE ATTENDANT receives consult due to concern for patient's GLF. PT evaluated patient this morning prior to FURNACE ATTENDANT's arrival. It is reported by RN that patient de-statted to 77% on 2L NC while working with PT. RN reports that patient is requiring O2 at this time. Per take down inspector, patient is requiring Bpap and will be accepted and admitted to ICU by hospitalist. FURNACE ATTENDANT is unable to speak with patient at this time while he is on Bipap. FURNACE ATTENDANT briefly speaks with patient's daughter Chasidy who reports that she is support and can be reached by phone if needed. Per EMR, patient resides at home with spouse in [place] and family resides next door, daughter assists patient with housekeeping, shopping and managing appts. Patient uses canes at baseline and is able to manage ADLs, patient has FWW, 4WW and 2 canes at home. [facility] referral is in place from recent d/c, FURNACE ATTENDANT calls Erika at [facility] and informs her of patient's presentation to ED last night and re-admission to hospital. FURNACE ATTENDANT informs Erika that CM team will keep her informed regarding patient's status and plan of care. Patient's daughter reports that [facility] can contact her to schedule [facility] home visits. Plan: Patient admitted to ICU for BiPaP, PT to continue to evaluate patient, [facility] referral in place, DCP to f/u with family for POC. 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 Yes Advance Directives on File No History Provided By Family Member,Medical Record Has Patient been admitted in last 30 Yes days? Comment 01/13/23-01/14/23 for UTI and generalized weakness Prior Living Arrangements House Household Members spouse Type of transporation used prior to Relies on Others admit Independent with ADL's Yes Is patient alert and oriented? patient currently on Bipap Needs Assistance With Home Chores / Shopping Caregiver for Another No Community Services used prior to Physical Therapy,Home Health admission: Nurse,Social Work DME Already Rented / Owned FWW / Walker,Cane Comment uses bilateral single point canes. states he was not using them when he twisted his knee this last time. Patient/Family Preference Home with Home Health Comment Patient received new [facility] referral for PT, RN and FURNACE ATTENDANT upon recent d/c on 01/14/23 Transportation Arrangement Family available to provide transport at d/c Referrals Initiated Home Health Additional Comment initial HH referral in place with [facility], they will need updated d/c summary upon d/c. Review Status In Process Please Provide Date Initial DC 01/16/23 Assessment Was Performed
--- NOTE | 2023-01-16 14:24 | DI.RAD.S_ITS ---
PROCEDURE: XR CHEST 1V INDICATIONS: respiratory failure TECHNIQUE: One view of the chest was acquired. COMPARISON: [facility], CT, CT CHEST WO CON, 01/15/2023, 23:32. [facility], CR, XR CHEST 1V, 01/13/2023, 2:42. [facility], CR, XR CHEST 1V, 01/06/2023, 4:05. FINDINGS: Surgical changes and devices: None. Lungs and pleura: patchy left basilar airspace opacity. Mediastinum: Dilated pulmonary arteries. Heart size is enlarged, with a prosthetic mitral valve. Bones and chest wall: No suspicious bony lesions. Overlying soft tissues appear unremarkable. IMPRESSION: Patchy left basilar airspace opacity, either infection or atelectasis. Pulmonary hypertension, as evidenced by dilated pulmonary arteries. Dictated by: Micah Parr M.D. on 01/16/2023 at 14:54 Approved by: Micah Parr M.D. on 01/16/2023 at 14:55
--- NOTE | 2023-01-16 14:38 | P.HP_ITS ---
History of Present Illness History of Present Illness Date Patient Seen: 01/16/23 Time Patient Seen: 14:39 Chief complaint: GLF Narrative: Tramaine Powell is an 82 year old Male with a past medical history AVNRT post ablation, pulmonary HTN, TIA, permanent chronic AFib on Coumadin, atrial clip, diastolic CHF, OA, CAD, BPH, chronic anemia, HDL, Crohn's colitis, GERD, and peripheral edema who was just recently here for an episode of weakness, thought to be secondary to UTI and possible diastolic heart failure who presented to the emergency room yesterday after having continued weakness with fall at home. He denied any other symptoms prior to arrival including abdominal pain, dysuria, urinary frequency, palpitations, fever, nausea or vomiting. He reports taking his augmentin at home. Home health was unable to assess the patient, and reported difficulty scheduling with the patient per discussions with care management staff here. He was to have physical therapy evaluation in the ER with possible placement. He states he took his home medications prior to arrival yesterday. This morning he began to feel a bit short of breath. When working with PT his O2 saturations dropped to the mid 70s. Overnight he is reported to have been on 0 to 1 L of oxygen via NC. With hypoxia, patient was placed on 2L O2, CT chest yesterday showed No definite acute disease.? Very small bilateral pleural effusions and mild cardiomegaly are noted.? No pneumonia found. He was given a single dose of furosemide 20 mg IV early this morning, but no other medications had been given until desaturations. He takes torsemide 100 mg daily at home along with metolazone 2.5 mg daily per outpatient cardiology notes. ABG was ordered which showed acidosis with hypercapnea with PCO2 of 76. He was given 40 mg IV furosemide, with worsening of hypercapnea. He was then placed on BiPAP and admitted to the ICU for further management. Other than slight increase in proBNP, laboratory evaluation was unremarkable. I ordered chest xray after arrival to the ICU. [facility] Medical History Asthma BPH w urinary obs/LUTS Chicken pox Chronic anticoagulation Chronic atrial fibrillation Chronic diastolic CHF (congestive heart failure), NYHA class 1 Colon polyps Coronary artery disease Crohn's disease Diverticular disease Easy bruisability Essential hypertension Fractures Hearing loss Hemorrhoid History of colonic polyps History of urinary incontinence (~2018) Measles Mixed hyperlipidemia Mumps Myocardial infarction Obesity Osteoarthritis Positive PPD Primary osteoarthritis involving multiple joints Pulmonary hypertension Right inguinal hernia Tinnitus Vision disorder Surgical History Anesthesia H/O mitral valve replacement (~03/2017) Hx of heart artery stent (~1994) Family History Mother Congestive heart failure Father Coronary artery disease Social History household members: spouse Smoking Status: Never smoker substance use type: does not use Type(s) of exercise: walking frequency: daily Meds Home Medications and Allergies Home Medications Medication Instructions Recorded Confirmed Type albuterol sulfate 90 mcg/actuation 2 puff INH PRN PRN Shortness Of 03/22/17 01/16/23 History aerosol inhaler (Proventil HFA) Breath ##0 mesalamine 500 mg capsule,extended 1,000 mg PO BID ##0 03/24/17 01/16/23 History release (Pentasa) calcium carbonate 500 mg-vitamin 3 tab PO DAILY ##0 03/31/17 01/16/23 History D3 2.5 mcg (100 unit) chewable tablet aspirin 81 mg tablet,delayed 81 mg PO DAILY 05/18/18 01/16/23 History release ferrous sulfate 325 mg (65 mg 325 mg PO BID 05/18/18 01/16/23 History iron) tablet finasteride 5 mg tablet 5 mg PO DAILY 05/18/18 01/16/23 History folic acid 1 mg tablet 1 mg PO DAILY 05/18/18 01/16/23 History loratadine 10 mg tablet 10 mg PO DAILY 05/18/18 01/16/23 History nitroglycerin 0.4 mg sublingual 0.4 mg sublingual Q5-15M PRN Chest 05/18/18 01/16/23 History tablet (Nitrostat) Pain simvastatin 40 mg tablet 20 mg PO BEDTIME 12/07/21 01/16/23 History fluticasone propionate 50 1 spray intranasal DAILY PRN 02/07/22 01/16/23 History mcg/actuation nasal allergy symptoms spray,suspension acetaminophen 325 mg tablet 650 mg PO Q4H PRN Pain 04/24/22 01/16/23 History alfuzosin 10 mg tablet,extended 10 mg PO DAILY 04/24/22 01/16/23 History release 24 hr ascorbic acid (vitamin C) 500 mg 500 mg PO DAILY 04/24/22 01/16/23 History tablet metolazone 2.5 mg tablet 2.5 mg PO DAILY 04/24/22 01/16/23 History neomycin-polymyxin 1 ea topical DAILY PRN Skin 04/24/22 01/16/23 History H-qhaeiicwdi-tkjmlsnjeuidbi top Irritation ointment omeprazole 20 mg tablet,delayed 20 mg PO DAILY 04/24/22 01/16/23 History release tamsulosin 0.4 mg capsule 0.4 mg PO DAILY 06/13/22 01/16/23 History warfarin 5 mg tablet See Rx Instructions .Route 06/17/22 01/16/23 Rx .COMPLEX #90 tabs carvedilol 12.5 mg tablet 12.5 mg PO BID 01/13/23 01/16/23 History eplerenone 50 mg tablet 50 mg PO DAILY 01/13/23 01/16/23 History isosorbide mononitrate 60 mg 60 mg PO DAILY 01/13/23 01/16/23 History tablet,extended release 24 hr potassium chloride 20 mEq 20 meq PO TID 01/13/23 01/16/23 History tablet,extended release torsemide 100 mg tablet 100 mg PO DAILY 01/13/23 01/16/23 History amoxicillin 875 mg-potassium 1 tab PO BID 5 days #10 tabs 01/14/23 01/16/23 Rx clavulanate 125 mg tablet Allergies Allergy/AdvReac Type Severity Reaction Status Date / Time ibuprofen Allergy Mild NOT GOOD Verified 10/10/22 12:53 FOR STOMACH BLEEDING iodine Allergy Mild UNKNOWN Verified 10/10/22 12:53 Sulfa (Sulfonamide Allergy Mild BURNED A Verified 10/10/22 12:53 Antibiotics) HOLE THRU INTESTINES thallium-201 Allergy Mild BREAKS OUT Verified 10/10/22 12:53 IN BLOTCHES AND ITCHING terazosin Allergy Hypotension Verified 10/10/22 12:53 spironolactone AdvReac Verified 10/10/22 12:53 Review of Systems Review of Systems Narrative: All other systems reviewed with the patient and are negative unless otherwise stated. Exam Vital Signs (past 8 hours): - 01/16/23 07:00 01/16/23 07:00 01/16/23 07:30 Pulse Rate 66 Respiratory Rate 21 Blood Pressure 103/56 L 110/59 L Pulse Oximetry 96 Oxygen Delivery Method Oxygen Flow Rate 01/16/23 07:30 01/16/23 08:00 01/16/23 08:00 Pulse Rate 67 74 Respiratory Rate 23 31 H Blood Pressure 107/58 L Pulse Oximetry 95 91 Oxygen Delivery Method Oxygen Flow Rate 01/16/23 11:05 01/16/23 12:00 01/16/23 14:03 Pulse Rate 74 72 Respiratory Rate 21 Blood Pressure 108/66 121/62 Pulse Oximetry 77 L 97 Oxygen Delivery Method Nasal Cannula Nasal Cannula Oxygen Flow Rate 2 2 01/16/23 13:44 Pulse Rate 76 Respiratory Rate 25 H Blood Pressure Pulse Oximetry 98 Oxygen Delivery Method BiPAP Oxygen Flow Rate Oxygen Delivery Method BiPAP Oxygen Flow Rate 2 Narrative Exam Narrative: General: Patient is a well-developed, chronically ill appearing elderly male in no acute distress but on BiPAP machine HEENT: Normocephalic, atraumatic, extraocular muscles intact, oral pharynx is clear and mucous membranes are moist. Neck is supple and symmetric, trachea is midline, no adenopathy, no thyroid enlargement, nontender, no masses palpated. Negative for JVD Chest: Equal chest rise without nasal flaring, retractions, tachypneic or labored breathing. Lungs: Auscultation of all lung [place] are clear without adventitious sounds, wheezes, rhonchi, or rales. Cardio: irregular rate and rhythm normal S1 & S2 Abdomen: S NT ND Musculoskeletal: Muscle strength and tone are equal, no deformity, crepitus, effusions, cyanosis, clubbing. Bilateral 1-2+ LE edema present. Skin: chronic venous stasis changes b/l LE Neuro: Alert and orientated to name but not location or date. moves all extremities, sensation to touch intact, no gross deficits noted of cranial nerves. Psych: Patient has a well-kept appearance, appropriate affect, mental status attitude thought context and judgment are appropriate for age. Objective ECG Impression: atrial fibrillation with PVC or abberantly conducted complexes, no change from prior tracings Labs 01/16/23 10:10 01/16/23 10:10 Labs: Laboratory Results - last 24 hr 01/15/23 01/15/2323 23:25 23:25 23:25 WBC 3.2 L RBC 3.31 L Hgb 9.1 L Hct 28.5 L MCV 86.0 MCH 27.5 MCHC 32.0 RDW 15.4 H Plt Count 100 L Neut % (Auto) 76.4 H Lymph % (Auto) 8.8 L Person % (Auto) 13.0 Eos % (Auto) 1.2 L Baso % (Auto) 0.6 Neut # (Auto) 2400 Lymph # (Auto) 300 L Person # (Auto) 400 Eos # (Auto) 0 Baso # (Auto) 0 PT 16.1 H INR 1.4 H ABG pH ABG pCO2 ABG pO2 ABG HCO3 ABG Total CO2 ABG O2 Saturation ABG Base Excess FiO2 Sodium 132 L Potassium 4.3 Chloride 90 L Carbon Dioxide 39 H BUN 23 H Creatinine 0.93 Estimated GFR > 60 BUN/Creatinine Ratio 24.7 H Glucose 111 H Lactate Calcium 8.8 Total Bilirubin 0.6 AST 32 ALT 23 Alkaline Phosphatase 80 Total Creatine Kinase Troponin I 0.014 NT-Pro-B Natriuret Pep 4180 H Total Protein 6.5 Albumin 3.6 Globulin 2.9 Albumin/Globulin Ratio 1.2 01/15/23 01/16/23 01/16/23 23:25 10:10 10:10 WBC 3.2 L RBC 3.33 L Hgb 9.3 L Hct 28.8 L MCV 86.6 MCH 27.9 MCHC 32.2 RDW 15.2 H Plt Count 99 L Neut % (Auto) 73.1 Lymph % (Auto) 9.5 L Person % (Auto) 15.7 H Eos % (Auto) 1.0 L Baso % (Auto) 0.7 Neut # (Auto) 2400 Lymph # (Auto) 300 L Person # (Auto) 500 Eos # (Auto) 0 Baso # (Auto) 0 PT INR ABG pH ABG pCO2 ABG pO2 ABG HCO3 ABG Total CO2 ABG O2 Saturation ABG Base Excess FiO2 Sodium 134 L Potassium 3.8 Chloride 91 L Carbon Dioxide 39 H BUN 24 H Creatinine 0.85 Estimated GFR > 60 BUN/Creatinine Ratio 28.2 H Glucose 133 H Lactate 1.2 Calcium 8.8 Total Bilirubin AST ALT Alkaline Phosphatase Total Creatine Kinase 28 L Troponin I 0.015 NT-Pro-B Natriuret Pep 5040 H Total Protein Albumin Globulin Albumin/Globulin Ratio 01/16/23 01/16/23 10:32 13:15 WBC RBC Hgb Hct MCV MCH MCHC RDW Plt Count Neut % (Auto) Lymph % (Auto) Person % (Auto) Eos % (Auto) Baso % (Auto) Neut # (Auto) Lymph # (Auto) Person # (Auto) Eos # (Auto) Baso # (Auto) PT INR ABG pH 7.32 L 7.29 L* ABG pCO2 76.4 H* 81.0 H* ABG pO2 90 97 ABG HCO3 40 H 39 H ABG Total CO2 42 H 42 H ABG O2 Saturation 96 96 ABG Base Excess 13.0 H 13.0 H FiO2 26 26 Sodium Potassium Chloride Carbon Dioxide BUN Creatinine Estimated GFR BUN/Creatinine Ratio Glucose Lactate Calcium Total Bilirubin AST ALT Alkaline Phosphatase Total Creatine Kinase Troponin I NT-Pro-B Natriuret Pep Total Protein Albumin Globulin Albumin/Globulin Ratio Assessment & Plan Assessment & Plan narrative: Tramaine Powell is an 82 year old Male with a past medical history AVNRT post ablation, pulmonary HTN, TIA, heart catheterization, angioplasty, permanent chronic AFib on Coumadin, atrial clip, diastolic CHF, oa, CAD, BPH, chronic anemia, HDL, Crohn's colitis, GERD, and peripheral edema who again presented with weakness. Developed acute respiratory failure while awaiting PT evaluation in the ER, found to have hypercapnea and now placed on BiPAP for presumed CHF exacerbation. #Acute hypoxemic and hypercapnic respiratory failure secondary to diastolic he art failure with acute metabolic encephalopathy - no known COPD history, but does have pulmonary HTN noted on prior echo with severe TR noted in late 2021. - limited TTE ordered to reassess - continue diuresis with 60 mg IV lasix BID if BP tolerates, will see how he responds to therapy. He takes metolazone and torsemide 2.5, 100 mg per cardiology outpatient notes. His compliance was questioned with prior cardiology documentation. - recheck ABG in a few hours - appears to have worsening confusion since arrival with worsening hypercapnea - teleICU consult given severe pulmonary HTN - PICC placement requested given probability of intubation #UTI, acute, due to pseudomonas, present on admission - will need to change antibiotics to cefepime. Organism sensitive to fluroquinolones but will order cefepime 2g q8 while admitted due to warfarin interactions #Atrial fibrillation, active, chronic/permanent, on chronic Coumadin, present on admission * INR goal 2-3, 1.4 on admit. * coumadin per pharmacy and coreg to continue once meds reconciled #CAD, chronic, pulmonary hypertension, present on admission * Continue carvedilol, eplerenone #Acute on chronic Diastolic heart failure, with severe TR and pulmonary HTN * Last echo 06/27, EF 55% will repeat as noted above. RVSP 83 mmHg with right atrial pressure of 15 on echo. #BPH, active, chronic, present on admission #Crohn's colitis disease/IBD, chronic, present on admission * Continue mesalamine #Hyperlipidemia, mixed, chronic, present on admission * continue simvastatin 20 mg #Pancytopenia, chronic * Continue ferrous sulfate #Osteoarthritis, with muscle spasms, chronic, present on admission * Continue Flexeril #GERD, chronic, present on admission * Continue PPI #Obesity, moderate, acute on chronic, present on admission * As evidence by BMI 37 * dietary consult ordered regarding nutritional education and information for dietary, lifestyle, exercise, and weight changes. * the patient is at much higher risk for medical and surgical complications due to obesity as it relates to chronic illnesses:, and acute illness. The patient's obesity increases the difficulty and complexity of medical and/or surgical interventions, management and increases the chances of poor outcome such as morbidity and mortality as well as impaired wound healing. Code status:Full Surrogate decision maker: Italia Powell DVT/VTE prophylaxis: Coumadin Disposition: Admit ICU on BiPAP I have utilized all available immediate resources to obtain, update, or review the patient's current medications. I spent 40 minutes providing critical care management this patient. This excludes time spent in performing separately billed procedures. Quality VTE Deep Vein Thrombosis/Pulmonary Embolism Present on Admission: No
[2023-01-16 15:09] LABS: Appearance Urine UA CLEAR; Bilirubin Urine UA NEGATIVE (NEGATIVE); Color Urine UA YELLOW; Glucose Urine UA NEGATIVE (Negative); Ketones Urine UA NEGATIVE (NEGATIVE); Leukocyte Esterase Urine UA NEGATIVE (NEGATIVE); Nitrite Urine UA NEGATIVE (Negative); Occult Blood Urine UA NEGATIVE (Negative); Protein Urine UA NEGATIVE (Negative); Specific Gravity Urine UA <=1.005 (1.000-1.035); Urobilinogen Urine UA 0.2 E.U./dL (0.2)
[2023-01-16 15:19] LABS: Bacteria Urine None Seen; Culture Indicated Urine Cult Not Indicated; RBC Urine None Seen (0-5/HPF); Squamous Epithelial Cell Urine 0-1 /HPF (0-5/HPF); WBC Urine None Seen (0-5/HPF)
[2023-01-16 16:08] LABS: MRSA (Nasal) PCR Not Detected (Not Detect)
[2023-01-16] MEDS: CEFEPIME 2 GM in SODIUM CHLORIDE 0.9% 100 ML IV (17:16)
--- NOTE | 2023-01-16 18:12 | DI.RAD.S_ITS ---
PROCEDURE: XR CHEST 1V INDICATIONS: PICC placement TECHNIQUE: One view of the chest was acquired. COMPARISON: [facility], CR, XR CHEST 1V, 01/16/2023, 14:22. FINDINGS: Surgical changes and devices: Patient is status post median sternotomy and valvular replacement. There is a right PICC, the tip of which is in the inferior right brachiocephalic near the confluence of the brachiocephalic veins. Lungs and pleura: There are diffuse interstitial radiopacities and pulmonary vascular engorgement. Mediastinum: Mediastinal contours appear normal. Heart size is enlarged. Bones and chest wall: No suspicious bony lesions. Overlying soft tissues appear unremarkable. IMPRESSION: 1. Interstitial prominence and pulmonary vascular engorgement suggesting fluid overload. Dictated by: Ania Bae M.D. on 01/16/2023 at 18:51 Approved by: Ania Bae M.D. on 01/16/2023 at 18:52
[2023-01-16] MEDS: FUROSEMIDE 60 MG in SODIUM CHLORIDE 0.9% 50 ML 112 MG IV (18:27)
--- NOTE | 2023-01-16 18:38 | DI.ECHO.S_ITS ---
[place] +---------+ [facility] +---------+ : : [address] : : : : [id number] : : : : Phone: [phone]+ Echocardiogram Report + + :Name: NURIS MILAN Study Date: 01/17/2023 Height: 62 in : :[facility] ReadingLocation: Weight: 185 lb: : Gender: Male BSA: 1.8 m2 : :: 1940 Age: 82 yrs BP: 99/51 mmHg: :Reason For Study: Acute Respiratory Failure : :Ordering Physician: ITZEL, : :ZOEY RENEE Performed By: Erika Rivera : :Referring: ZOEY ROBBINS : + + Interpretation Summary The patient was in atrial fibrillation with heart rates between 70 bpm during the exam. The left ventricle is grossly normal size. Left ventricular wall thickness is mild-moderately increased. The ejection fraction is estimated to be 65-70%. The interventricular septum is flattened, consistent with a right ventricular pressure/volume condition. The right ventricle is severely dilated. Right ventricular systolic function is severely reduced. In comparison to previous study, significant increase in RV size as well as markedly decreased RV systolic function. Tented tricuspid valve leaflets. There is moderate tricuspid regurgitation. Compared to the prior echo exam, there has been an increase in TR severity. The right ventricular systolic pressure is estimated to be at least 66 mmHg based on an estimated right atrial pressure of 15 mm Hg. Previously 56 mmHg. Compared to the prior echo exam, there has been an increase in the severity of pulmonary hypertension. Moderate mitral annulus calcification as well as calcification of the mitral leaflets. Not well visualized in apical views. In parasternal long axis views, no critical mitral stenosis. No obvious mitral valve prolapse seen which was seen on prior images. Mild to moderate MR. Previously moderate to severe MR. The aortic valve is heavily calcified. There is mild to moderately reduced leaflet mobility. The peak aortic velocity is 2.24 m/sec. The aortic valve mean gradient is 10 mmHg. The calculated aortic valve area is 1.2 cm2. There is mild to moderate aortic stenosis. Compared to the prior echo study, there has been an increase in the severity of aortic stenosis. There is mild to moderate aortic regurgitation. Compared to the prior echo study, there has been an increase in the severity of aortic regurgitation. Procedure: A two-dimensional transthoracic echocardiogram with color flow and Doppler was performed. The study quality was technically adequate. Comparison is made with the echocardiogram of 03/22/2017. The patient was in atrial fibrillation with heart rates between 70 bpm during the exam. Left Ventricle: The left ventricle is grossly normal size. Left ventricular wall thickness is mild-moderately increased. There is no thrombus. The ejection fraction is estimated to be 65-70%. The interventricular septum is flattened, consistent with a right ventricular pressure/volume condition. Diastolic function could not be accurately assessed due to atrial fibrillation. Right Ventricle: The right ventricle is severely dilated. Right ventricular systolic function is severely reduced. Atria: The left atrium is severely dilated. There has been no significant change since the previous study. The right atrium is severely dilated. The right atrium has significantly increased in size since the prior echo exam. There is no Doppler evidence for an interatrial shunt. Mitral Valve: Moderate mitral annulus calcification as well as calcification of the mitral leaflets. Not well visualized in apical views. In parasternal long axis views no critical mitral stenosis. No obvious mitral valve prolapse seen which was seen on prior images. Mild to moderate MR. Previously moderate to severe MR. The mitral valve mean gradient is 3 mmHg. No significant mitral valve stenosis. There is mild to moderate mitral regurgitation. Aortic Valve: The aortic valve is heavily calcified. The aortic valve is trileaflet. There is mild to moderately reduced leaflet mobility. There is mild to moderate aortic stenosis. The peak aortic velocity is 2.24 m/sec. The aortic valve mean gradient is 10 mmHg. The calculated aortic valve area is 1.2 cm2. Compared to the prior echo study, there has been an increase in the severity of aortic stenosis. There is mild to moderate aortic regurgitation. Compared to the prior echo study, there has been an increase in the severity of aortic regurgitation. Tricuspid Valve: Tricuspid leaflets are thickened. The tricuspid annulus is dilated. Tented tricuspid valve leaflets. There is no tricuspid stenosis. There is moderate tricuspid regurgitation. The right ventricular systolic pressure is estimated to be at least 66 mmHg based on an estimated right atrial pressure of 15 mm Hg. Compared to the prior echo exam, there has been an increase in TR severity. Compared to the prior echo exam, there has been an increase in the severity of pulmonary hypertension. Pulmonic Valve: The pulmonic valve leaflets are thin and pliable; valve motion is normal. There is no pulmonic valvular stenosis. There is trace pulmonic regurgitation. Great Vessels: The aortic root is normal size. The ascending aorta is normal in size. The pulmonary artery is normal size. The IVC is dilated (diameter is greater than 2.1 cm) and it collapses less than 50% with a sniff. This suggests a high right atrial pressure of 15 mm Hg. Pericardium/ Pleura There is no pericardial effusion. There is a small left- sided pleural effusion. MMode/2D Measurements & Calculations LVIDd: 4.2 cm LVOT diam: 2.0 cm LVIDs: 3.2 cm Ao root diam: 3.2 cm FS: 23.8 % asc Aorta Diam: 3.4 cm EPSS: 1.1 cm IVSd: 1.5 cm LVPWd: 1.2 cm LV gutierrez. diameter/BSA (cm/m^2): 2.3 LV sys. diameter/BSA (cm/m^2): 1.7 LA A2 area: 35.0 cm2 RA long axis: 7.0 cm LA A4 area: 25.2 cm2 RA area: 35.3 cm2 LA length (vol): 7.5 cm RA vol: 151.7 ml LA vol: 100.1 ml RA : 82.0 ml/m2 LA vol index: 54.1 ml/m2 RVD1 (basal): 7.2 cm LVLs ap4: 6.8 cm LVLd ap2: 9.1 cm TAPSE_phl: 0.54 cm LVLs ap2: 7.6 cm Doppler Measurements & Calculations Ao V2 max: 206.0 cm/sec LVOT Max Justino: 77.6 cm/sec Ao V2 mean: 149.0 cm/sec LV V1 max P.4 mmHg Ao max P.0 mmHg LV V1 VTI: 15.2 cm Ao mean P.0 mmHg MILDRED(I,D): 1.1 cm2 Ao V2 VTI: 42.6 cm MILDRED(V,D): 1.2 cm2 sev ratio: 0.36 MILDRED indexed to BSA (cm^2/m^2): 0.61 MVA(VTI): 0.97 cm2 TR max justino: 366.0 cm/sec TR max P.3 mmHg MV V2 mean: 77.8 cm/sec SV(LVOT): 47.8 ml MV mean P.1 mmHg MV V2 VTI: 49.3 cm AV VR_phl: 0.38 MILDRED(VTI)/BSA_phl: 0.61 Reading Physician:09:10 AM
--- NOTE | 2023-01-16 19:01 | PC.NURSE ---
Day shift: Pt admitted to ICU RM228 at approximately 1415 via stretcher from ED. A&O to self, year, situation, unsure of month (thought it was February) and thought he was at the hospital in [place]. Telemetry attached, BP on lower side, provider aware. Pt family members at bedside. Pt resting comfortably. Pt then difficult to rouse per family. TeleICU provider at bedside on monitor, pt rousable to noxious stimuli. Orders received. During PICC placement, pt awake and requesting assistance in repositioning. Pt alert to self, month, year, situation, and place. Pt family member called and updated. Bed alarm active, bed locked, VSS, call light in reach and pt able to use at this time. Care ongoing.
[2023-01-16 19:20] LABS: PCO2 VBG 60.2 mmHg (45-50); PO2 VBG 29 mmHg (35-45); pH VBG 7.33 (7.33-7.43)
[2023-01-16 19:21] LABS: Fractionated Inspired Oxygen 26; HCO3 VBG 32 mmol/L (24-28); Oxygen Saturation VBG 49 % (70-75); Total CO2 VBG 34 mmol/L (24-29)
[2023-01-16 19:28] LABS: pH ABG 7.39 (7.35-7.45)
[2023-01-16 19:30] LABS: PCO2 ABG 66.8 mmHg (35-45); PO2 ABG 80 mmHg (80-100)
[2023-01-16 19:32] LABS: Fractionated Inspired Oxygen 26; HCO3 ABG 40 mmol/L (23-27); Oxygen Saturation ABG 95 % (95-100); TCO2 ABG 42 mmol/L (23-27)
--- NOTE | 2023-01-16 20:13 | P.TELICUCN_ITS ---
History of Present Illness Consult details IF CAMERA ACTIVATED, patient seen via real-time interactive audiovisual communication: Camera activated Chief complaint: GLF Consent obtained for tele-inspecting machine adjuster care: Yes Patient Location: ICU Provider location (State): [place] Other participants/roles: RN Narrative: 82 year ld man with a past medical history AVNRT post ablation, pulmonary HTN ( last knwon RVSP was in 80s, but mean PA unknown), TIA, permanent chronic AFib on Coumadin, atrial clip, diastolic CHF, OA, CAD, BPH, chronic anemia, HDL, Crohn's colitis, GERD, and peripheral edema presenting iniially with weakness and SOB - found to have wrosening hypercapnea from baseline. He was placed on bipap and htough his ABG improved, his mental status worsened. I saw the patient at this point and he clearly quite lethargic., He wa on bipap on a ipap of 6, epap of 6. Patient was changed to AVAPS after this with a goal min ipap of 10 and goal TV of 400. His mental status did imrpove after this. [facility] Medical History (Updated 01/16/23 @ 20:22 by Mark Yin MD) Asthma BPH w urinary obs/LUTS Chicken pox Chronic anticoagulation Chronic atrial fibrillation Chronic diastolic CHF (congestive heart failure), NYHA class 1 Colon polyps Coronary artery disease Crohn's disease Diverticular disease Easy bruisability Essential hypertension Fractures Hearing loss Hemorrhoid History of colonic polyps History of urinary incontinence (~2018) Measles Mixed hyperlipidemia Mumps Myocardial infarction Obesity Osteoarthritis Positive PPD Primary osteoarthritis involving multiple joints Pulmonary hypertension Right inguinal hernia Tinnitus Vision disorder Surgical History Anesthesia H/O mitral valve replacement (~03/2017) Hx of heart artery stent (~1994) Family History Mother Congestive heart failure Father Coronary artery disease Social History household members: spouse Smoking Status: Never smoker substance use type: does not use Type(s) of exercise: walking frequency: daily Current Medications Current Medications Medications: Home Medications albuterol sulfate 90 mcg/actuation aerosol inhaler (Proventil HFA) 2 puff INH PRN PRN Shortness Of Breath ##0 03/22/17 [History Confirmed 01/16/23] mesalamine 500 mg capsule,extended release (Pentasa) 1,000 mg PO BID ##0 03/24/17 [History Confirmed 01/16/23] calcium carbonate 500 mg-vitamin D3 2.5 mcg (100 unit) chewable tablet 3 tab PO DAILY ##0 03/31/17 [History Confirmed 01/16/23] aspirin 81 mg tablet,delayed release 81 mg PO DAILY 05/18/18 [History Confirmed 01/16/23] ferrous sulfate 325 mg (65 mg iron) tablet 325 mg PO BID 05/18/18 [History Confirmed 01/16/23] finasteride 5 mg tablet 5 mg PO DAILY 05/18/18 [History Confirmed 01/16/23] folic acid 1 mg tablet 1 mg PO DAILY 05/18/18 [History Confirmed 01/16/23] loratadine 10 mg tablet 10 mg PO DAILY 05/18/18 [History Confirmed 01/16/23] nitroglycerin 0.4 mg sublingual tablet (Nitrostat) 0.4 mg sublingual Q5-15M PRN Chest Pain 05/18/18 [History Confirmed 01/16/23] simvastatin 40 mg tablet 20 mg PO BEDTIME 12/07/21 [History Confirmed 01/16/23] fluticasone propionate 50 mcg/actuation nasal spray,suspension 1 spray intranasal DAILY PRN allergy symptoms 02/07/22 [History Confirmed 01/16/23] acetaminophen 325 mg tablet 650 mg PO Q4H PRN Pain 04/24/22 [History Confirmed 01/16/23] alfuzosin 10 mg tablet,extended release 24 hr 10 mg PO DAILY 04/24/22 [History Confirmed 01/16/23] ascorbic acid (vitamin C) 500 mg tablet 500 mg PO DAILY 04/24/22 [History Confirmed 01/16/23] metolazone 2.5 mg tablet 2.5 mg PO DAILY 04/24/22 [History Confirmed 01/16/23] neomycin-polymyxin I-clorouluep-qfueruedhdhawr top ointment 1 ea topical DAILY PRN Skin Irritation 04/24/22 [History Confirmed 01/16/23] omeprazole 20 mg tablet,delayed release 20 mg PO DAILY 04/24/22 [History Confirmed 01/16/23] tamsulosin 0.4 mg capsule 0.4 mg PO DAILY 06/13/22 [History Confirmed 01/16/23] warfarin 5 mg tablet See Rx Instructions .Route .COMPLEX #90 tabs 06/17/22 [Rx Confirmed 01/16/23] carvedilol 12.5 mg tablet 12.5 mg PO BID 01/13/23 [History Confirmed 01/16/23] eplerenone 50 mg tablet 50 mg PO DAILY 01/13/23 [History Confirmed 01/16/23] isosorbide mononitrate 60 mg tablet,extended release 24 hr 60 mg PO DAILY 01/13/23 [History Confirmed 01/16/23] potassium chloride 20 mEq tablet,extended release 20 meq PO TID 01/13/23 [History Confirmed 01/16/23] torsemide 100 mg tablet 100 mg PO DAILY 01/13/23 [History Confirmed 01/16/23] amoxicillin 875 mg-potassium clavulanate 125 mg tablet 1 tab PO BID 5 days #10 tabs 01/14/23 [Rx Confirmed 01/16/23] Visit Medications (administered) Generic Name Dose Route Start Last Admin Trade Name Freq PRN Reason Stop Dose Admin Furosemide 60 mg/ Sodium 56 mls @ 112 mls/hr 01/16/23 18:00 01/16/23 19:34 Chloride IV Infused 0800,1800 [facility] Cefepime HCl 2 gm/ Sodium 100 mls @ 200 mls/hr 01/16/23 16:00 01/16/23 19:31 Chloride IV Infused Q12H [facility] Review of Systems Review of Systems Narrative: unable to obtain Exam Vital Signs (past 8 hours): - 01/16/23 14:03 01/16/23 13:44 01/16/23 13:30 Temperature Pulse Rate 72 76 Respiratory Rate 21 25 H Blood Pressure 121/62 Pulse Oximetry 98 Oxygen Delivery Method BiPAP Fraction of Inspired Oxygen 26 01/16/23 14:42 01/16/23 14:50 01/16/23 14:00 Temperature 98.7 F Pulse Rate 76 Respiratory Rate 22 Blood Pressure 118/58 L Pulse Oximetry 98 100 Oxygen Delivery Method BiPAP BiPAP Fraction of Inspired Oxygen 01/16/23 15:00 01/16/23 16:00 01/16/23 17:00 Temperature Pulse Rate 68 68 64 Respiratory Rate 17 16 16 Blood Pressure 101/64 96/51 L 97/55 L Pulse Oximetry 99 99 100 Oxygen Delivery Method Fraction of Inspired Oxygen 01/16/23 18:07 01/16/23 18:24 01/16/23 18:24 Temperature Pulse Rate 65 Respiratory Rate 22 Blood Pressure 102/53 L 102/53 L Pulse Oximetry 97 97 Oxygen Delivery Method BiPAP Fraction of Inspired Oxygen 01/16/23 19:00 Temperature Pulse Rate 62 Respiratory Rate 16 Blood Pressure 102/55 L Pulse Oximetry 97 Oxygen Delivery Method Fraction of Inspired Oxygen Fraction of Inspired Oxygen 26 Oxygen Delivery Method BiPAP Oxygen Flow Rate 2 Narrative Exam Narrative: surrogate for full exma is primary team Const Other: pt lethargic Resp Other: on bipap symmetrical chest rise Objective Labs 01/16/23 10:10 01/16/23 10:10 Labs: Laboratory Results - last 24 hr 01/15/23 01/15/23 01/15/23 23:25 23:25 23:25 WBC 3.2 L RBC 3.31 L Hgb 9.1 L Hct 28.5 L MCV 86.0 MCH 27.5 MCHC 32.0 RDW 15.4 H Plt Count 100 L Neut % (Auto) 76.4 H Lymph % (Auto) 8.8 L [place] % (Auto) 13.0 Eos % (Auto) 1.2 L Baso % (Auto) 0.6 Neut # (Auto) 2400 Lymph # (Auto) 300 L [place] # (Auto) 400 Eos # (Auto) 0 Baso # (Auto) 0 PT 16.1 H INR 1.4 H ABG pH ABG pCO2 ABG pO2 ABG HCO3 ABG Total CO2 ABG O2 Saturation ABG Base Excess VBG pH VBG pCO2 VBG pO2 VBG HCO3 VBG Total CO2 VBG O2 Saturation VBG Base Excess FiO2 Sodium 132 L Potassium 4.3 Chloride 90 L Carbon Dioxide 39 H BUN 23 H Creatinine 0.93 Estimated GFR > 60 BUN/Creatinine Ratio 24.7 H Glucose 111 H Lactate Calcium 8.8 Total Bilirubin 0.6 AST 32 ALT 23 Alkaline Phosphatase 80 Total Creatine Kinase Troponin I 0.014 NT-Pro-B Natriuret Pep 4180 H Total Protein 6.5 Albumin 3.6 Globulin 2.9 Albumin/Globulin Ratio 1.2 Urine Color Urine Appearance Urine pH Ur Specific [place] Urine Protein Urine Glucose (UA) Urine Ketones Urine Occult Blood Urine Nitrate Urine Bilirubin Urine Urobilinogen Ur Leukocyte Esterase Urine RBC Urine WBC Ur Squamous Epith Cells Urine Bacteria Ur Culture Indicated? Nasal Screen MRSA (PCR) 01/15/23 01/16/23 01/16/23 23:25 10:10 10:10 WBC 3.2 L RBC 3.33 L Hgb 9.3 L Hct 28.8 L MCV 86.6 MCH 27.9 MCHC 32.2 RDW 15.2 H Plt Count 99 L Neut % (Auto) 73.1 Lymph % (Auto) 9.5 L [place] % (Auto) 15.7 H Eos % (Auto) 1.0 L Baso % (Auto) 0.7 Neut # (Auto) 2400 Lymph # (Auto) 300 L [place] # (Auto) 500 Eos # (Auto) 0 Baso # (Auto) 0 PT INR ABG pH ABG pCO2 ABG pO2 ABG HCO3 ABG Total CO2 ABG O2 Saturation ABG Base Excess VBG pH VBG pCO2 VBG pO2 VBG HCO3 VBG Total CO2 VBG O2 Saturation VBG Base Excess FiO2 Sodium 134 L Potassium 3.8 Chloride 91 L Carbon Dioxide 39 H BUN 24 H Creatinine 0.85 Estimated GFR > 60 BUN/Creatinine Ratio 28.2 H Glucose 133 H Lactate 1.2 Calcium 8.8 Total Bilirubin AST ALT Alkaline Phosphatase Total Creatine Kinase 28 L Troponin I 0.015 NT-Pro-B Natriuret Pep 5040 H Total Protein Albumin Globulin Albumin/Globulin Ratio Urine Color Urine Appearance Urine pH Ur Specific [place] Urine Protein Urine Glucose (UA) Urine Ketones Urine Occult Blood Urine Nitrate Urine Bilirubin Urine Urobilinogen Ur Leukocyte Esterase Urine RBC Urine WBC Ur Squamous Epith Cells Urine Bacteria Ur Culture Indicated? Nasal Screen MRSA (PCR) 01/16/23 01/16/23 01/16/23 10:32 13:15 14:20 WBC RBC Hgb Hct MCV MCH MCHC RDW Plt Count Neut % (Auto) Lymph % (Auto) [place] % (Auto) Eos % (Auto) Baso % (Auto) Neut # (Auto) Lymph # (Auto) [place] # (Auto) Eos # (Auto) Baso # (Auto) PT INR ABG pH 7.32 L 7.29 L* ABG pCO2 76.4 H* 81.0 H* ABG pO2 90 97 ABG HCO3 40 H 39 H ABG Total CO2 42 H 42 H ABG O2 Saturation 96 96 ABG Base Excess 13.0 H 13.0 H VBG pH VBG pCO2 VBG pO2 VBG HCO3 VBG Total CO2 VBG O2 Saturation VBG Base Excess FiO2 26 26 Sodium Potassium Chloride Carbon Dioxide BUN Creatinine Estimated GFR BUN/Creatinine Ratio Glucose Lactate Calcium Total Bilirubin AST ALT Alkaline Phosphatase Total Creatine Kinase Troponin I NT-Pro-B Natriuret Pep Total Protein Albumin Globulin Albumin/Globulin Ratio Urine Color Urine Appearance Urine pH Ur Specific [place] Urine Protein Urine Glucose (UA) Urine Ketones Urine Occult Blood Urine Nitrate Urine Bilirubin Urine Urobilinogen Ur Leukocyte Esterase Urine RBC Urine WBC Ur Squamous Epith Cells Urine Bacteria Ur Culture Indicated? Nasal Screen MRSA (PCR) Not detected 01/16/23 01/16/23 01/16/23 14:32 16:49 18:58 WBC RBC Hgb Hct MCV MCH MCHC RDW Plt Count Neut % (Auto) Lymph % (Auto) [place] % (Auto) Eos % (Auto) Baso % (Auto) Neut # (Auto) Lymph # (Auto) [place] # (Auto) Eos # (Auto) Baso # (Auto) PT INR ABG pH 7.39 ABG pCO2 66.8 H* ABG pO2 80 ABG HCO3 40 H ABG Total CO2 42 H ABG O2 Saturation 95 ABG Base Excess 15.0 H VBG pH 7.33 VBG pCO2 60.2 H VBG pO2 29 L VBG HCO3 32 H VBG Total CO2 34 H VBG O2 Saturation 49 L VBG Base Excess 6.0 H FiO2 26 26 Sodium Potassium Chloride Carbon Dioxide BUN Creatinine Estimated GFR BUN/Creatinine Ratio Glucose Lactate Calcium Total Bilirubin AST ALT Alkaline Phosphatase Total Creatine Kinase Troponin I NT-Pro-B Natriuret Pep Total Protein Albumin Globulin Albumin/Globulin Ratio Urine Color Yellow Urine Appearance Clear Urine pH 6.0 Ur Specific [place] <=1.005 Urine Protein Negative Urine Glucose (UA) Negative Urine Ketones Negative Urine Occult Blood Negative Urine Nitrate Negative Urine Bilirubin Negative Urine Urobilinogen 0.2 Ur Leukocyte Esterase Negative Urine RBC None seen Urine WBC None seen Ur Squamous Epith Cells 0-1 /hpf Urine Bacteria None seen Ur Culture Indicated? Cult not indicated Nasal Screen MRSA (PCR) Assessment & Plan Assessment and plan (1) CHF (congestive heart failure): Qualifiers: Heart failure type: combined systolic and diastolic Status: Acute (2) Chronic a-fib: Status: Acute (3) Respiratory failure: Qualifiers: Chronicity: acute Respiratory failure complication: hypercapnia Qualified Code(s): J96.02 - Acute respiratory failure with hypercapnia Status: Acute (4) Pulmonary hypertension: Status: Acute Assessment & Plan narrative: Pt seems to have severe pulm htn, in the setting of PPV these patient tend not to do well gien reduction in CO and preload. I suspect this is this case as his mental status imrpoved via AVAPs and lowering IPAP and gen the VBG results ( obtained from PICC) Would continue to diuresis patient nebs prn wean off bipap if possible trend vbg TTE NPO while on bipap trend bmp monirtor UO can cont empirc abx send procal f/u cx dvt ppx total critical care time is 35 min
[2023-01-16] MEDS: ENOXAPARIN 100 MG/ML SYRINGE 80 MG SUBCUT (21:00)
[2023-01-16] MEDS: SODIUM CHLORIDE 0.9% FLUSH 10 ML IV (21:03)
[2023-01-16 23:08] LABS: PCO2 VBG 71.1 mmHg (45-50); PO2 VBG 35 mmHg (35-45)
[2023-01-16 23:09] LABS: Fractionated Inspired Oxygen 26; HCO3 VBG 44 mmol/L (24-28); Oxygen Saturation VBG 63 % (70-75); Total CO2 VBG 47 mmol/L (24-29)
[2023-01-17] VITALS (42 sets, daily range): BP systolic 80–119; BP diastolic 48–70; PULSE 59–75; RESP 6–37; TEMP 36.2–37; O2SAT 87–100
[2023-01-17] MEDS: CEFEPIME 2 GM in SODIUM CHLORIDE 0.9% 100 ML IV ×2 (04:05→16:26)
[2023-01-17 04:30] LABS: Add Manual Diff / Slide Review NO; Basophils Absolute Auto 0 /uL (0-100); Basophils Percent Auto 1.5 % (0-2); Eosinophils Absolute Auto 100 /uL (0-450); Hematocrit 25.5 % (41-53); Hemoglobin 8.3 g/dL (13.5-17.5); Lymphocytes Absolute Auto 400 /uL (1100-4500); Lymphocytes Percent Auto 12.9 % (25-40); Mean Corpuscular HGB Conc 32.4 % (30-36); Mean Corpuscular Hemoglobin 27.9 PG (26-34); Monocytes Absolute Auto 500 /uL (0-900); Monocytes Percent Auto 15.6 % (3-14); Neutrophils Absolute Auto 2200 /uL (1500-7000); Platelet Count 91 X10^3/uL (150-400); Red Blood Cell Count 2.97 X10^6/uL (4.5-5.9); Red Cell Distribution Width 15.4 % (11.6-14.8); White Blood Cell Count 3.2 X10^3/uL (4.5-11.0)
[2023-01-17 04:44] LABS: INR 1.7 (0.9-1.3); Prothrombin Time 19.6 SECONDS (10.1-12.7)
[2023-01-17 04:48] LABS: BUN Creatinine Ratio 27.2 (6-22); Blood Urea Nitrogen 22 mg/dL (9-20); Calcium 8.3 mg/dL (8.4-10.2); Chloride 86 mmol/L (98-107); Estimated Glomerular Filt Rate > 60 mL/min (>60); Glucose 80 mg/dL (80-110); HEMOLYSIS < 15 (0-50); Magnesium 1.6 mg/dL (1.6-2.3); Sodium 135 mmol/L (137-145)
--- NOTE | 2023-01-17 04:54 | PC.NURSE ---
Addendum entered by Taylor Palomo R.N. 01/17/23 06:44: I agree with Mely RNs assessments, interventions, and documentations. Original Note: Spoke with provider at beginning of shift, updated provider on patient status and pt being very lethargic and tired. Provider advised NPO. Provider recommended AVAPS but RN communicated with provider that RT did not have protocol, training, or ability to chart and RT was not comfortable with AVAPS. Provider instructed to keep pt on BiPAP with lowest iPAP to maintain tidal volume. This instruction was relayed to RT. Early in am the next day, his neuro status improved, which was relayed to provider. Provider okay'd PO meds as long as pt passed bedside swallow test. Relayed to provider critical K of 2.5 and critical CO2 of 44.
[2023-01-17 05:00] LABS: Potassium 2.5 mmol/L (3.4-5.1)
[2023-01-17 05:01] LABS: Carbon Dioxide 44 mmol/L (22-32)
[2023-01-17 05:30] LABS: pH ABG 7.44 (7.35-7.45)
[2023-01-17 05:33] LABS: PCO2 ABG 67.3 mmHg (35-45)
[2023-01-17 05:34] LABS: HCO3 ABG 46 mmol/L (23-27); Oxygen Saturation ABG 88 % (95-100); PO2 ABG 55 mmHg (80-100); TCO2 ABG 48 mmol/L (23-27)
[2023-01-17] MEDS: POTASSIUM CHLORIDE IN WATER 10 MEQ/100 ML PIGGYBACK 100 MEQ IV ×4 (05:41→09:25)
[2023-01-17] MEDS: POTASSIUM CHLORIDE 20 MEQ TAB 40 MEQ PO ×3 (05:41→18:33)
[2023-01-17] MEDS: ISOSORBIDE MONONITRATE ER 30 MG TABLET 60 MG PO (07:59)
[2023-01-17] MEDS: FUROSEMIDE 60 MG in SODIUM CHLORIDE 0.9% 50 ML 112 MG IV (08:01)
[2023-01-17] MEDS: carvediloL 12.5 MG TABLET PO (08:02)
[2023-01-17] MEDS: ENOXAPARIN 100 MG/ML SYRINGE 80 MG SUBCUT ×2 (08:02→20:16)
[2023-01-17] MEDS: MESALAMINE 400 MG CAP.DRTAB. 800 MG PO ×2 (08:03→20:23)
[2023-01-17] MEDS: SODIUM CHLORIDE 0.9% FLUSH 10 ML IV ×2 (08:21→21:59)
--- NOTE | 2023-01-17 09:30 | P.TELICUPN_ITS ---
Subjective Subjective IF CAMERA ACTIVATED, patient seen via real-time interactive audiovisual communication: Camera activated Date Patient Seen: 01/17/23 Consent obtained for tele-certification engineer care: Yes Patient Location: ICU Provider location (State): [facility] Other participants/roles: Dr. Pedro and MANJU Kapoor Interval history: No acute issues overnight. Off BiPAP and now on 1.5 liters NC. K down to 2.5 and currently getting repleted. Awake and following commands. No complaints. Current Medications Current Medications Medications: Home Medications albuterol sulfate 90 mcg/actuation aerosol inhaler (Proventil HFA) 2 puff INH PRN PRN Shortness Of Breath ##0 03/22/17 [History Confirmed 01/16/23] mesalamine 500 mg capsule,extended release (Pentasa) 1,000 mg PO BID ##0 03/24/17 [History Confirmed 01/16/23] calcium carbonate 500 mg-vitamin D3 2.5 mcg (100 unit) chewable tablet 3 tab PO DAILY ##0 03/31/17 [History Confirmed 01/16/23] aspirin 81 mg tablet,delayed release 81 mg PO DAILY 05/18/18 [History Confirmed 01/16/23] ferrous sulfate 325 mg (65 mg iron) tablet 325 mg PO BID 05/18/18 [History Confirmed 01/16/23] finasteride 5 mg tablet 5 mg PO DAILY 05/18/18 [History Confirmed 01/16/23] folic acid 1 mg tablet 1 mg PO DAILY 05/18/18 [History Confirmed 01/16/23] loratadine 10 mg tablet 10 mg PO DAILY 05/18/18 [History Confirmed 01/16/23] nitroglycerin 0.4 mg sublingual tablet (Nitrostat) 0.4 mg sublingual Q5-15M PRN Chest Pain 05/18/18 [History Confirmed 01/16/23] simvastatin 40 mg tablet 20 mg PO BEDTIME 12/07/21 [History Confirmed 01/16/23] fluticasone propionate 50 mcg/actuation nasal spray,suspension 1 spray intranasal DAILY PRN allergy symptoms 02/07/22 [History Confirmed 01/16/23] acetaminophen 325 mg tablet 650 mg PO Q4H PRN Pain 04/24/22 [History Confirmed 01/16/23] alfuzosin 10 mg tablet,extended release 24 hr 10 mg PO DAILY 04/24/22 [History Confirmed 01/16/23] ascorbic acid (vitamin C) 500 mg tablet 500 mg PO DAILY 04/24/22 [History Confirmed 01/16/23] metolazone 2.5 mg tablet 2.5 mg PO DAILY 04/24/22 [History Confirmed 01/16/23] neomycin-polymyxin B-avfrlmmxwd-xpmtaijkikhawf top ointment 1 ea topical DAILY PRN Skin Irritation 04/24/22 [History Confirmed 01/16/23] omeprazole 20 mg tablet,delayed release 20 mg PO DAILY 04/24/22 [History Confirmed 01/16/23] tamsulosin 0.4 mg capsule 0.4 mg PO DAILY 06/13/22 [History Confirmed 01/16/23] warfarin 5 mg tablet See Rx Instructions .Route .COMPLEX #90 tabs 06/17/22 [Rx Confirmed 01/16/23] carvedilol 12.5 mg tablet 12.5 mg PO BID 01/13/23 [History Confirmed 01/16/23] eplerenone 50 mg tablet 50 mg PO DAILY 01/13/23 [History Confirmed 01/16/23] isosorbide mononitrate 60 mg tablet,extended release 24 hr 60 mg PO DAILY 01/13/23 [History Confirmed 01/16/23] potassium chloride 20 mEq tablet,extended release 20 meq PO TID 01/13/23 [History Confirmed 01/16/23] torsemide 100 mg tablet 100 mg PO DAILY 01/13/23 [History Confirmed 01/16/23] amoxicillin 875 mg-potassium clavulanate 125 mg tablet 1 tab PO BID 5 days #10 tabs 01/14/23 [Rx Confirmed 01/16/23] Visit Medications (administered) Generic Name Dose Route Start Last Admin Trade Name Freq PRN Reason Stop Dose Admin Carvedilol 12.5 mg 01/16/23 21:00 01/17/23 08:02 Carvedilol 12.5 Mg Tablet PO 12.5 mg BID SCOTT Administration Enoxaparin Sodium 80 mg 01/16/23 21:00 01/17/23 08:02 Enoxaparin 100 Mg/Ml Syringe SUBCUT 80 mg BID SCOTT Administration Furosemide 60 mg/ Sodium 56 mls @ 112 mls/hr 01/16/23 18:00 01/17/23 08:01 Chloride IV 112 mls/hr 0800,1800 SCOTT Administration Cefepime HCl 2 gm/ Sodium 100 mls @ 200 mls/hr 01/16/23 16:00 01/17/23 04:05 Chloride IV 200 mls/hr Q12H SCOTT Administration Isosorbide Mononitrate 60 mg 01/17/23 07:00 01/17/23 07:59 Isosorbide Mononitrate Er 30 Mg Tablet PO 60 mg QACBREAK SCOTT Administration Mesalamine 800 mg 01/16/23 21:00 01/17/23 08:03 Mesalamine 400 Mg Cap.Drtab. PO 800 mg BID SCOTT Administration Sodium Chloride 10 ml 01/16/23 21:00 01/17/23 08:21 Sodium Chloride 0.9% Flush IV 10 ml BID SCOTT Administration Objective Ventilator Parameters: Ventilator Settings FiO2 26 Labs 01/17/23 04:15 01/17/23 04:15 Labs: Laboratory Results - last 24 hr 01/16/23 01/16/23 01/16/23 10:10 10:10 10:32 WBC 3.2 L RBC 3.33 L Hgb 9.3 L Hct 28.8 L MCV 86.6 MCH 27.9 MCHC 32.2 RDW 15.2 H Plt Count 99 L Neut % (Auto) 73.1 Lymph % (Auto) 9.5 L [place] % (Auto) 15.7 H Eos % (Auto) 1.0 L Baso % (Auto) 0.7 Neut # (Auto) 2400 Lymph # (Auto) 300 L [place] # (Auto) 500 Eos # (Auto) 0 Baso # (Auto) 0 PT INR ABG pH 7.32 L ABG pCO2 76.4 H* ABG pO2 90 ABG HCO3 40 H ABG Total CO2 42 H ABG O2 Saturation 96 ABG Base Excess 13.0 H VBG pH VBG pCO2 VBG pO2 VBG HCO3 VBG Total CO2 VBG O2 Saturation VBG Base Excess FiO2 26 Sodium 134 L Potassium 3.8 Chloride 91 L Carbon Dioxide 39 H BUN 24 H Creatinine 0.85 Estimated GFR > 60 BUN/Creatinine Ratio 28.2 H Glucose 133 H Calcium 8.8 Magnesium Total Creatine Kinase 28 L Troponin I 0.015 NT-Pro-B Natriuret Pep 5040 H Urine Color Urine Appearance Urine pH Ur Specific [place] Urine Protein Urine Glucose (UA) Urine Ketones Urine Occult Blood Urine Nitrate Urine Bilirubin Urine Urobilinogen Ur Leukocyte Esterase Urine RBC Urine WBC Ur Squamous Epith Cells Urine Bacteria Ur Culture Indicated? Nasal Screen MRSA (PCR) 01/16/23 01/16/23 01/16/23 13:15 14:20 14:32 WBC RBC Hgb Hct MCV MCH MCHC RDW Plt Count Neut % (Auto) Lymph % (Auto) [place] % (Auto) Eos % (Auto) Baso % (Auto) Neut # (Auto) Lymph # (Auto) [place] # (Auto) Eos # (Auto) Baso # (Auto) PT INR ABG pH 7.29 L* ABG pCO2 81.0 H* ABG pO2 97 ABG HCO3 39 H ABG Total CO2 42 H ABG O2 Saturation 96 ABG Base Excess 13.0 H VBG pH VBG pCO2 VBG pO2 VBG HCO3 VBG Total CO2 VBG O2 Saturation VBG Base Excess FiO2 26 Sodium Potassium Chloride Carbon Dioxide BUN Creatinine Estimated GFR BUN/Creatinine Ratio Glucose Calcium Magnesium Total Creatine Kinase Troponin I NT-Pro-B Natriuret Pep Urine Color Yellow Urine Appearance Clear Urine pH 6.0 Ur Specific [place] <=1.005 Urine Protein Negative Urine Glucose (UA) Negative Urine Ketones Negative Urine Occult Blood Negative Urine Nitrate Negative Urine Bilirubin Negative Urine Urobilinogen 0.2 Ur Leukocyte Esterase Negative Urine RBC None seen Urine WBC None seen Ur Squamous Epith Cells 0-1 /hpf Urine Bacteria None seen Ur Culture Indicated? Cult not indicated Nasal Screen MRSA (PCR) Not detected 01/16/23 01/16/23 01/16/23 16:49 18:58 20:58 WBC RBC Hgb Hct MCV MCH MCHC RDW Plt Count Neut % (Auto) Lymph % (Auto) [place] % (Auto) Eos % (Auto) Baso % (Auto) Neut # (Auto) Lymph # (Auto) [place] # (Auto) Eos # (Auto) Baso # (Auto) PT INR ABG pH 7.39 ABG pCO2 66.8 H* ABG pO2 80 ABG HCO3 40 H ABG Total CO2 42 H ABG O2 Saturation 95 ABG Base Excess 15.0 H VBG pH 7.33 7.40 VBG pCO2 60.2 H 71.1 H VBG pO2 29 L 35 VBG HCO3 32 H 44 H VBG Total CO2 34 H 47 H VBG O2 Saturation 49 L 63 L VBG Base Excess 6.0 H 20.0 H FiO2 26 26 26 Sodium Potassium Chloride Carbon Dioxide BUN Creatinine Estimated GFR BUN/Creatinine Ratio Glucose Calcium Magnesium Total Creatine Kinase Troponin I NT-Pro-B Natriuret Pep Urine Color Urine Appearance Urine pH Ur Specific [place] Urine Protein Urine Glucose (UA) Urine Ketones Urine Occult Blood Urine Nitrate Urine Bilirubin Urine Urobilinogen Ur Leukocyte Esterase Urine RBC Urine WBC Ur Squamous Epith Cells Urine Bacteria Ur Culture Indicated? Nasal Screen MRSA (PCR) 01/17/23 01/17/23 01/17/23 04:15 04:15 04:15 WBC 3.2 L RBC 2.97 L Hgb 8.3 L Hct 25.5 L MCV 86.0 MCH 27.9 MCHC 32.4 RDW 15.4 H Plt Count 91 L Neut % (Auto) 68.0 Lymph % (Auto) 12.9 L [place] % (Auto) 15.6 H Eos % (Auto) 2.0 Baso % (Auto) 1.5 Neut # (Auto) 2200 Lymph # (Auto) 400 L [place] # (Auto) 500 Eos # (Auto) 100 Baso # (Auto) 0 PT 19.6 H INR 1.7 H ABG pH ABG pCO2 ABG pO2 ABG HCO3 ABG Total CO2 ABG O2 Saturation ABG Base Excess VBG pH VBG pCO2 VBG pO2 VBG HCO3 VBG Total CO2 VBG O2 Saturation VBG Base Excess FiO2 Sodium 135 L Potassium 2.5 L* D Chloride 86 L Carbon Dioxide 44 H* BUN 22 H Creatinine 0.81 Estimated GFR > 60 BUN/Creatinine Ratio 27.2 H Glucose 80 Calcium 8.3 L Magnesium 1.6 Total Creatine Kinase Troponin I NT-Pro-B Natriuret Pep Urine Color Urine Appearance Urine pH Ur Specific [place] Urine Protein Urine Glucose (UA) Urine Ketones Urine Occult Blood Urine Nitrate Urine Bilirubin Urine Urobilinogen Ur Leukocyte Esterase Urine RBC Urine WBC Ur Squamous Epith Cells Urine Bacteria Ur Culture Indicated? Nasal Screen MRSA (PCR) 01/17/23 05:13 WBC RBC Hgb Hct MCV MCH MCHC RDW Plt Count Neut % (Auto) Lymph % (Auto) [place] % (Auto) Eos % (Auto) Baso % (Auto) Neut # (Auto) Lymph # (Auto) [place] # (Auto) Eos # (Auto) Baso # (Auto) PT INR ABG pH 7.44 ABG pCO2 67.3 H* ABG pO2 55 L ABG HCO3 46 H ABG Total CO2 48 H ABG O2 Saturation 88 L ABG Base Excess 21.0 H VBG pH VBG pCO2 VBG pO2 VBG HCO3 VBG Total CO2 VBG O2 Saturation VBG Base Excess FiO2 Sodium Potassium Chloride Carbon Dioxide BUN Creatinine Estimated GFR BUN/Creatinine Ratio Glucose Calcium Magnesium Total Creatine Kinase Troponin I NT-Pro-B Natriuret Pep Urine Color Urine Appearance Urine pH Ur Specific [place] Urine Protein Urine Glucose (UA) Urine Ketones Urine Occult Blood Urine Nitrate Urine Bilirubin Urine Urobilinogen Ur Leukocyte Esterase Urine RBC Urine WBC Ur Squamous Epith Cells Urine Bacteria Ur Culture Indicated? Nasal Screen MRSA (PCR) Exam Vital Signs (past 8 hours): - 01/17/23 02:34 01/17/23 02:00 01/17/23 02:00 Temperature Pulse Rate 61 Respiratory Rate 18 Blood Pressure 98/64 Pulse Oximetry 97 96 Oxygen Delivery Method BiPAP Oxygen Flow Rate Fraction of Inspired Oxygen 26 01/17/23 02:59 01/17/23 03:00 01/17/23 03:00 Temperature Pulse Rate 63 60 Respiratory Rate 22 21 Blood Pressure 102/51 L Pulse Oximetry 97 97 Oxygen Delivery Method Oxygen Flow Rate 1.5 Fraction of Inspired Oxygen 01/17/23 02:06 01/17/23 04:00 01/17/23 04:00 Temperature 97.6 F Pulse Rate 59 L Respiratory Rate 19 Blood Pressure 97/54 L Pulse Oximetry 97 Oxygen Delivery Method BiPAP Oxygen Flow Rate 1.5 Fraction of Inspired Oxygen 01/17/23 05:00 01/17/23 05:00 01/17/23 06:00 Temperature Pulse Rate 65 Respiratory Rate 22 Blood Pressure 98/54 L 98/50 L Pulse Oximetry 98 Oxygen Delivery Method Oxygen Flow Rate 1.5 Fraction of Inspired Oxygen 01/17/23 06:00 01/17/23 06:00 01/17/23 06:06 Temperature Pulse Rate 71 Respiratory Rate 28 H Blood Pressure Pulse Oximetry 95 100 Oxygen Delivery Method Nasal Cannula Room Air Oxygen Flow Rate 1.5 Fraction of Inspired Oxygen 01/17/23 08:02 01/17/23 07:00 01/17/23 07:00 Temperature Pulse Rate 65 62 Respiratory Rate 24 Blood Pressure 99/51 L 99/51 L Pulse Oximetry 91 Oxygen Delivery Method Oxygen Flow Rate Fraction of Inspired Oxygen 01/17/23 08:00 01/17/23 08:00 Temperature Pulse Rate 67 Respiratory Rate 27 H Blood Pressure 99/51 L Pulse Oximetry 89 L Oxygen Delivery Method Oxygen Flow Rate Fraction of Inspired Oxygen Fraction of Inspired Oxygen 26 Oxygen Delivery Method Room Air Oxygen Flow Rate 1.5 Narrative Exam Narrative: Not in acute distress. Awake and following commands. Quality TeleICU VTE Deep Vein Thrombosis/Pulmonary Embolism Present on Admission: No Assessment & Plan Assessment & Plan narrative: NEURO: # Decondition -- Seek PT/OT -- Encourage early mobility RESP: # Chronic hypercarbia respiratory failure -- Secondary to severe space ventilation from severe pulmonary hypertension -- Strict I/O -- Avoid net positive fluid balance -- Restrat gentle diuresis once K >4 -- Encourage IS -- HOB elevation -- Aspiration precaution -- Monitor off BiPAP -- Goal SpO2 > 90% CVS: # Acute on chronic decompensapte PH -- Secondary to hypervolemia and hypercarbia -- Restart gentle diuresis once K > 4 and consider adding eplerenone -- High lytes goal -- Strict I/O -- Low Na diet # A fib -- High lytes goal -- Cont coreg and dc imdur given soft BP -- Restart coumadin w/ goal INR 2-3 : # Hypokalemia -- Cont aggressive lytes repletion -- Repeat K ID: # [id number] UTI -- On cefepime ENDO: -- Goal BS < 180 D/w primary bedside team and RN. Time Spent With Patient Time with patient: 30 to 49 minutes with 50% spent counseling/coordinating care
[2023-01-17] MEDS: MAGNESIUM CHLORIDE 64 MG TABLET 128 MG PO (09:46)
--- NOTE | 2023-01-17 10:22 | PT.IPTN ---
Current Diagnoses Pulmonary hypertension, unspecified (01/16/23) Chronic atrial fibrillation, unspecified (01/16/23) Heart failure, unspecified (01/16/23) Acute respiratory failure with hypercapnia (01/16/23) Urinary tract infection, site not specified (01/16/23) Physical Therapy Treatment Note M2 PT-IP Current Condition Start: 01/16/23 13:39 Freq: Status: Active Protocol: Document 01/16/23 10:40 AB (Rec: 01/16/23 14:01 AB [id number]) Physical Therapy Current Condition Current Condition Evaluation Date 01/16/23 Treatment Diagnosis GLF; CHF; difficulty in walking Onset Date 01/15/23 M3 PT-IP Subjective Start: 01/16/23 13:39 Freq: Status: Active Protocol: Document 01/17/23 09:55 KS (Rec: 01/17/23 11:06 KS [id number]) Subjective Physical Therapy Visit Type Type Treatment Note Visit Start Time 09:55 Visit Stop Time 10:22 Total Visit Minutes 27 Notes Rn present for assistance. Number of FLASK CLEANER Visits 1 Physical Therapy Visit Comments Patient Comments agreeable to do PT Therapy Pain Assessment Pain When Pain Assessed During Mobility Pain Present Pain Present Pain Reported Location Right Knee Scale Used pain scale not stated Pain Management Techniques Elevation,Modification of Treatment,Re-positioning M4 PT-IP Mobility and Gait Start: 01/16/23 13:39 Freq: Status: Active Protocol: Document 01/17/23 09:55 KS (Rec: 01/17/23 11:06 KS [id number]) PT-Bed Mobility Assessment Supine to Sit Supine to Sit Maximum Assistance,1 Person Assistance,Head of Bed Elevated Sit to Supine Sit to Supine Maximum Assistance,2 Person Assistance Scooting Scooting to Edge of Bed Maximum Assistance PT-Transfer Assessment Sit to and From Stand Sit to and from Stand Moderate Assistance,1 Person Assistance,Use of Upper Extremities Equipment Transfer Assistive Device Gait Belt,Front Wheeled Walker Orthotic/Prosthetic Devices or Brace: No Transfers Transfer Destination Bed Transfer Technique ambulated Transfer Ability Level of Assist Minimal Assistance,1 Person Assistance,Use of Upper Extremities Comments Mobility Comments Pt in bed upon arrival, cleared w/ RN prior to working w/ pt. Pt required Max A for sup<>sit and scooting EOB. BP stable and O2 low 90s on 1L. Pt sit<>stand w/ Mod A and maintained standing balance ~6 min during linen and breif change. During that time he walked fwd/bwd 6 steps w/ FWW and Min A and then took 3 small side steps towards HOB. Pt reported high level of fatigue, required Max A x2 for sit<>sup and repositioning in bed. Left in bed all needs in reach and RN in room. Gait Assessment Gait Gait Assistance Required: Minimum Assistance,1 Person Assist Distance (Feet) 8 Assistive Devices Assistive Device Gait Belt,Front Wheeled Walker Gait Deviations General Gait Pattern Antalgic,Decreased Stride Length,Decreased Feet Clearance,Flexed Trunk Factors Limiting Gait Function Factors Limiting Gait Function Decreased Activity Tolerance, Decreased Strength,Limited Range of Motion,Pain,Poor Balance Comments Gait Comments Pt ambulated ~8 total feet w/ FWW and Min A today. Difficulty advancing L foot forward and backward d/t pain in R knee and ankle during weight bearing. Quick approach to fatigue but w/ good effort . PT-Balance Assessment Sitting Balance and Reactions Static Sitting Balance Ability Good Dynamic Sitting Balance Ability Fair Standing Balance and Reactions Static Standing Balance Ability Fair Dynamic Standing Balance Ability Fair Device Used FWW M5 PT-IP Objective Assessments Start: 01/16/23 13:39 Freq: Status: Active Protocol: Document 01/16/23 10:40 AB (Rec: 01/16/23 14:01 AB [id number]) Orientation Orientation/Cognition Level of Alertness Alert Orientation Name,Day of Week,Situation Language Function Ability Hard of Hearing Safety Awareness Decreased Safety Awareness Memory Description Short Term Impaired,Mcfp Impaired Gross Range of Motion Lower Extremity ROM Assessment Within Functional Limits Strength Lower Extremity Strength Assessment Right Impaired Hip 2+/5 Knee 3+/5 Coordination Assessment Gross Coordination Gross Coordination WNL Sensation Assessment Sensation Gross Sensation WNL Muscle Tone Muscle Tone WNL Yes M6 PT-IP Treatment Start: 01/16/23 13:39 Freq: Status: Active Protocol: Document 01/17/23 09:55 KS (Rec: 01/17/23 11:06 TN [id number]) Physical Therapy Treatment Education Education Provided Safety M7 PT-IP Assessment and Plan Start: 01/16/23 13:39 Freq: Status: Active Protocol: Document 01/17/23 09:55 KS (Rec: 01/17/23 11:06 KS [id number]) PT Summary Assessment and Plan Potential Rehabilitation Potential Fair Summary Impairments Pain,ROM,Strength,Balance, Coordination,Sensation,Tone, Cognition,Bed Mobility, Transfers,Gait,Activity Tolerance Progress Towards Goals Slow Progress due to Medical Issues,Slow Progress due to Activity Tolerance Assessment Summary Pt demonstrated good effort w/ PT today. Remains limited by weakness and low activity tolerance and cont to require Max A x1-2 for bed mobility, but was able to stand ~6 min today and ambulate ~8ft w/ FWW Min A. PT still recommending SNF as pt requires significant assistance and is high risk for falls. Will continue to assess progress. Goals Bed Mobility Goal Minimal Assistance Transfer Goal Minimal Assistance,Front Wheeled Walker Gait Goal Minimal Assistance,Front Wheel Walker Gait Distance 50 Other Goals improve bed mobility, transfers and ambulation using FWW SBA ~ 150 ft Days to Meet Goals 10 Frequency of Treatment Frequency Of Treatment Once a Day Treatment Plan Physical Therapy Treatment Plan Bed Mobility Training,Transfer Training,Gait Training, Therapeutic Exercise,Balance Retraining,Discharge Planning, Hot or Cold Pack,Neuromuscular Re-ed,Coordination Retraining Precautions Other Precautions falls, O2 sat Recommendations To Nursing Amount of Assist Needed 2 Person Assist Discharge Recommendations PT Discharge Recommendations SNF Rehab Equipment Needed for Home Before FWW if pt goes home Discharge Transportation Needs at Discharge Wheelchair/Cabulance
[2023-01-17 12:14] LABS: HEMOLYSIS < 15 (0-50); Potassium 3.1 mmol/L (3.4-5.1)
[2023-01-17] MEDS: ACETAMINOPHEN 325 MG TABLET 650 MG PO ×2 (12:58→18:32)
--- NOTE | 2023-01-17 14:11 | P.PN_ITS ---
Subjective Subjective Interval history: 82 M admitted with hypercapnic respiratory failure, likely due to volume overload in the setting of chronic severe pulmonary HTN. He has been doing well off of BiPAP today, PCO2 is much improved. He worked with therapy today. Holding continued diuresis after he urinated 5L of fluid and worsening bicarb concerning for contraction alkalosis. Restarted eplerenone. Patient feels quite well today, much improved weakness and denies shortness of breath, chest pain, or abdominal pain. Exam Vital Signs (past 8 hours): - 01/17/23 08:02 01/17/23 07:00 01/17/23 07:00 Temperature Pulse Rate 65 62 Respiratory Rate 24 Blood Pressure 99/51 L 99/51 L Pulse Oximetry 91 Oxygen Delivery Method Oxygen Flow Rate 01/17/23 08:00 01/17/23 08:00 01/17/23 09:48 Temperature Pulse Rate 67 Respiratory Rate 27 H Blood Pressure 99/51 L Pulse Oximetry 89 L Oxygen Delivery Method Nasal Cannula Oxygen Flow Rate 01/17/23 10:27 01/17/23 10:29 01/17/23 09:00 Temperature 98.6 F Pulse Rate 65 Respiratory Rate 22 Blood Pressure 99/51 L 107/56 L Pulse Oximetry 92 Oxygen Delivery Method Nasal Cannula Oxygen Flow Rate 1 01/17/23 09:00 01/17/23 09:15 01/17/23 09:15 Temperature Pulse Rate 73 71 Respiratory Rate 21 22 Blood Pressure 96/55 L Pulse Oximetry 92 93 Oxygen Delivery Method Oxygen Flow Rate 01/17/23 10:00 01/17/23 10:05 01/17/23 10:05 Temperature Pulse Rate 71 73 Respiratory Rate 22 29 H Blood Pressure 108/70 Pulse Oximetry 93 92 Oxygen Delivery Method Oxygen Flow Rate 01/17/23 11:00 01/17/23 12:00 01/17/23 11:00 Temperature Pulse Rate 66 67 71 Respiratory Rate 28 H 28 H 22 Blood Pressure 108/70 Pulse Oximetry 96 93 Oxygen Delivery Method Oxygen Flow Rate 01/17/23 12:00 01/17/23 13:00 01/17/23 13:00 Temperature 97.7 F Pulse Rate 72 Respiratory Rate 21 Blood Pressure 119/59 L Pulse Oximetry 93 97 Oxygen Delivery Method Nasal Cannula Nasal Cannula Oxygen Flow Rate 1 01/17/23 13:00 Temperature Pulse Rate 65 Respiratory Rate 24 Blood Pressure 107/58 L Pulse Oximetry 99 Oxygen Delivery Method Oxygen Flow Rate 1 Fraction of Inspired Oxygen 26 Oxygen Delivery Method Nasal Cannula Oxygen Flow Rate 1 Narrative Exam Narrative: General: Patient is a well-developed, chronically ill appearing elderly male in no acute distress HEENT: Normocephalic, atraumatic, extraocular muscles intact, oral pharynx is clear and mucous membranes are moist. Neck is supple and symmetric, trachea is midline, no adenopathy, no thyroid enlargement, nontender, no masses palpated. Negative for JVD Chest: Equal chest rise without nasal flaring, retractions, tachypneic or labored breathing. Lungs: Auscultation of all lung [place] are clear without adventitious sounds, wheezes, rhonchi, or rales. Cardio: irregular rate and rhythm normal S1 & S2 Abdomen: S NT ND Musculoskeletal: Muscle strength and tone are equal, no deformity, crepitus, effusions, cyanosis, clubbing or edema present. Skin: Warm dry and intact without rashes, ulcerations or petechiae. Neuro: Alert and orientated x3, moves all extremities, sensation to touch intact, no gross deficits noted of cranial nerves. Psych: Patient has a well-kept appearance, appropriate affect, mental status attitude thought context and judgment are appropriate for age. Objective Labs 01/17/23 04:15 01/17/23 11:56 Labs: Laboratory Results - last 24 hr 01/16/23 01/16/23 01/16/23 14:20 14:32 16:49 WBC RBC Hgb Hct MCV MCH MCHC RDW Plt Count Neut % (Auto) Lymph % (Auto) [place] % (Auto) Eos % (Auto) Baso % (Auto) Neut # (Auto) Lymph # (Auto) [place] # (Auto) Eos # (Auto) Baso # (Auto) PT INR ABG pH 7.39 ABG pCO2 66.8 H* ABG pO2 80 ABG HCO3 40 H ABG Total CO2 42 H ABG O2 Saturation 95 ABG Base Excess 15.0 H VBG pH VBG pCO2 VBG pO2 VBG HCO3 VBG Total CO2 VBG O2 Saturation VBG Base Excess FiO2 26 Sodium Potassium Chloride Carbon Dioxide BUN Creatinine Estimated GFR BUN/Creatinine Ratio Glucose Calcium Magnesium Urine Color Yellow Urine Appearance Clear Urine pH 6.0 Ur Specific [place] <=1.005 Urine Protein Negative Urine Glucose (UA) Negative Urine Ketones Negative Urine Occult Blood Negative Urine Nitrate Negative Urine Bilirubin Negative Urine Urobilinogen 0.2 Ur Leukocyte Esterase Negative Urine RBC None seen Urine WBC None seen Ur Squamous Epith Cells 0-1 /hpf Urine Bacteria None seen Ur Culture Indicated? Cult not indicated Nasal Screen MRSA (PCR) Not detected 01/16/23 01/16/23 01/17/23 18:58 20:58 04:15 WBC 3.2 L RBC 2.97 L Hgb 8.3 L Hct 25.5 L MCV 86.0 MCH 27.9 MCHC 32.4 RDW 15.4 H Plt Count 91 L Neut % (Auto) 68.0 Lymph % (Auto) 12.9 L [place] % (Auto) 15.6 H Eos % (Auto) 2.0 Baso % (Auto) 1.5 Neut # (Auto) 2200 Lymph # (Auto) 400 L [place] # (Auto) 500 Eos # (Auto) 100 Baso # (Auto) 0 PT INR ABG pH ABG pCO2 ABG pO2 ABG HCO3 ABG Total CO2 ABG O2 Saturation ABG Base Excess VBG pH 7.33 7.40 VBG pCO2 60.2 H 71.1 H VBG pO2 29 L 35 VBG HCO3 32 H 44 H VBG Total CO2 34 H 47 H VBG O2 Saturation 49 L 63 L VBG Base Excess 6.0 H 20.0 H FiO2 26 26 Sodium Potassium Chloride Carbon Dioxide BUN Creatinine Estimated GFR BUN/Creatinine Ratio Glucose Calcium Magnesium Urine Color Urine Appearance Urine pH Ur Specific Rugby Urine Protein Urine Glucose (UA) Urine Ketones Urine Occult Blood Urine Nitrate Urine Bilirubin Urine Urobilinogen Ur Leukocyte Esterase Urine RBC Urine WBC Ur Squamous Epith Cells Urine Bacteria Ur Culture Indicated? Nasal Screen MRSA (PCR) 01/17/23 01/17/23 01/17/23 04:15 04:15 05:13 WBC RBC Hgb Hct MCV MCH MCHC RDW Plt Count Neut % (Auto) Lymph % (Auto) [place] % (Auto) Eos % (Auto) Baso % (Auto) Neut # (Auto) Lymph # (Auto) [place] # (Auto) Eos # (Auto) Baso # (Auto) PT 19.6 H INR 1.7 H ABG pH 7.44 ABG pCO2 67.3 H* ABG pO2 55 L ABG HCO3 46 H ABG Total CO2 48 H ABG O2 Saturation 88 L ABG Base Excess 21.0 H VBG pH VBG pCO2 VBG pO2 VBG HCO3 VBG Total CO2 VBG O2 Saturation VBG Base Excess FiO2 Sodium 135 L Potassium 2.5 L* D Chloride 86 L Carbon Dioxide 44 H* BUN 22 H Creatinine 0.81 Estimated GFR > 60 BUN/Creatinine Ratio 27.2 H Glucose 80 Calcium 8.3 L Magnesium 1.6 Urine Color Urine Appearance Urine pH Ur Specific Rugby Urine Protein Urine Glucose (UA) Urine Ketones Urine Occult Blood Urine Nitrate Urine Bilirubin Urine Urobilinogen Ur Leukocyte Esterase Urine RBC Urine WBC Ur Squamous Epith Cells Urine Bacteria Ur Culture Indicated? Nasal Screen MRSA (PCR) 01/17/23 11:56 WBC RBC Hgb Hct MCV MCH MCHC RDW Plt Count Neut % (Auto) Lymph % (Auto) [place] % (Auto) Eos % (Auto) Baso % (Auto) Neut # (Auto) Lymph # (Auto) [place] # (Auto) Eos # (Auto) Baso # (Auto) PT INR ABG pH ABG pCO2 ABG pO2 ABG HCO3 ABG Total CO2 ABG O2 Saturation ABG Base Excess VBG pH VBG pCO2 VBG pO2 VBG HCO3 VBG Total CO2 VBG O2 Saturation VBG Base Excess FiO2 Sodium Potassium 3.1 L Chloride Carbon Dioxide BUN Creatinine Estimated GFR BUN/Creatinine Ratio Glucose Calcium Magnesium Urine Color Urine Appearance Urine pH Ur Specific [place] Urine Protein Urine Glucose (UA) Urine Ketones Urine Occult Blood Urine Nitrate Urine Bilirubin Urine Urobilinogen Ur Leukocyte Esterase Urine RBC Urine WBC Ur Squamous Epith Cells Urine Bacteria Ur Culture Indicated? Nasal Screen MRSA (PCR) [facility] Medical History (Updated 01/16/23 @ 20:22 by Mark Yin MD) Asthma BPH w urinary obs/LUTS Chicken pox Chronic anticoagulation Chronic atrial fibrillation Chronic diastolic CHF (congestive heart failure), NYHA class 1 Colon polyps Coronary artery disease Crohn's disease Diverticular disease Easy bruisability Essential hypertension Fractures Hearing loss Hemorrhoid History of colonic polyps History of urinary incontinence (~2018) Measles Mixed hyperlipidemia Mumps Myocardial infarction Obesity Osteoarthritis Positive PPD Primary osteoarthritis involving multiple joints Pulmonary hypertension Right inguinal hernia Tinnitus Vision disorder Surgical History Anesthesia H/O mitral valve replacement (~03/2017) Hx of heart artery stent (~1994) Family History Mother Congestive heart failure Father Coronary artery disease Social History household members: spouse Smoking Status: Never smoker substance use type: does not use Type(s) of exercise: walking frequency: daily Assessment & Plan Assessment & Plan narrative: Tramaine Powell is an 82 year old Male with a past medical history AVNRT post ablation, pulmonary HTN, TIA, heart catheterization, angioplasty, permanent chronic AFib on Coumadin, atrial clip, diastolic CHF, oa, CAD, BPH, chronic anemia, HDL, Crohn's colitis, GERD, and peripheral edema who again presented with weakness. Developed acute respiratory failure while awaiting PT evaluation in the ER, found to have hypercapnea and now placed on BiPAP for presumed CHF exacerbation. #Acute hypoxemic and hypercapnic respiratory failure secondary to diastolic heart failure with acute metabolic encephalopathy - no known COPD history, but does have pulmonary HTN noted on prior echo with severe TR noted in late 2021. Likely secondary to space ventilation. - echo with EF of 65-70%, but interventricular septum is flat consistent with volume overload. He has R heart failure as well. RVSP is 66, though prior TTE scanned into the computer was noted to be in the 80s. - Diuresed well initially with 60 mg IV lasix BID but now with contraction alkalosis so will stop further dosing.He takes metolazone and torsemide 2.5, 100 mg per cardiology outpatient notes. His compliance was questioned with prior cardiology documentation. - restarted eplerenone today. - teleICU consult is much appreciated. - PICC placement done given high probability initially for decompensation. - it is unclear if patient has had pulmonary hypertension evaluation, presumed he has as he follows with cardiology. I do not see prior CTA to evaluate for pulmonary emboli, but might be better to perform V/Q scan. This will not likely change acute management given patient being bridged with lovenox and takes coumadin. This can be persued as an outpatient with cardiology if deemed necessary. #UTI, acute, due to pseudomonas, present on admission --was admitted previously for UTI, prior cultures did not grow pseudomonas however urine culture from last admit grew pseudomonas. -Changed antibiotics to cefepime. Organism sensitive to fluroquinolones but wi ll order cefepime 2g q8 while admitted due to warfarin interactions #Atrial fibrillation, active, chronic/permanent, on chronic Coumadin, present on admission * INR goal 2-3, 1.4 on admit. Continue briding lovenox given discussion above * coumadin per pharmacy and coreg to continue once meds reconciled #CAD, chronic, pulmonary hypertension, present on admission * Continue carvedilol, eplerenone #Acute on chronic Diastolic heart failure, with R heart failure, with severe TR and pulmonary HTN * Last echo 06/27, EF 55% will repeat as noted above. RVSP 83 mmHg with right at rial pressure of 15 on echo. Repeat TTE as noted above #BPH, active, chronic, present on admission - will continue to hold BPH medications until improvement in BP #Crohn's colitis disease/IBD, chronic, present on admission * Continue mesalamine #Hyperlipidemia, mixed, chronic, present on admission * continue simvastatin 20 mg #Pancytopenia, chronic * Continue ferrous sulfate #Osteoarthritis, with muscle spasms, chronic, present on admission * Continue Flexeril #GERD, chronic, present on admission * Continue PPI #Obesity, moderate, acute on chronic, present on admission * As evidence by BMI 37 * dietary consult ordered regarding nutritional education and information for dietary, lifestyle, exercise, and weight changes. * the patient is at much higher risk for medical and surgical complications due to obesity as it relates to chronic illnesses:, and acute illness. The patient's obesity increases the difficulty and complexity of medical and/or surgical interventions, management and increases the chances of poor outcome such as morbidity and mortality as well as impaired wound healing. Code status:Full Surrogate decision maker: Italia Powell DVT/VTE prophylaxis: Coumadin Disposition: Stay ICU, can possibly downgrade tomorrow if no return of hypercapnea. I have utilized all available immediate resources to obtain, update, or review the patient's current medications. I spent 40 minutes providing critical care management this patient. This excludes time spent in performing separately billed procedures. Quality VTE Deep Vein Thrombosis/Pulmonary Embolism Present on Admission: No
[2023-01-17] MEDS: WARFARIN 5 MG TABLET PO (16:26)
[2023-01-17] MEDS: DICLOFENAC 1% GEL 100 GM 1 APPLIC TOP ×2 (18:14→20:17)
--- NOTE | 2023-01-17 18:14 | PC.NURSE ---
Resp/Pain/K+ Trialed pt. on RA x2 today with sats decreased to mid/high 80's each time. Currently on 1L NC with sats mid 90's. Pt. reported right knee pain after ambulating in room with PT. Pt. reports that pain is chronic and knee needs replacement, minimal management at home. Administered Tylenol 650 mg PO for 9/10 pain in addition to ice pack. Reported pain to provider and additional order for Diclofenac cream obtained, cream applied to right knee prior to shift change. K+ low throughout the shift, provider aware, pt. received IV K+ replacement in addition to PO replacement with lab improvement.
[2023-01-17 21:34] LABS: HEMOLYSIS < 15 (0-50); Magnesium 1.6 mg/dL (1.6-2.3); Potassium 3.8 mmol/L (3.4-5.1)
--- NOTE | 2023-01-17 21:35 | PC.NURSE ---
Spoke with Dr. Bocanegra (tele ICU) via phone at approximately 2044 and reported to him that patient was slightly hypotensive, with systolic BPs in 80s and MAPs low to mid 60s. Pt asymptomatic. Provider told RN to hold PM carvedilol. Provider also instructed RN to draw Potassium and Magnesium lab levels and to report back if labs came back abnormal.
--- NOTE | 2023-01-17 22:32 | P.ICUMDRN_ITS ---
- Date Patient Seen: 01/17/23 :: This patient was seen via real time interactive two-way audiovisual telecommunic ation. Note: Case discussed with RN who reported sporadic trigeminy; potassium and magnesium levels were ordered and they are mildly low. K+ and Mg+2 repletion ordered. Further, SBP in 80s; Coreg has been held. Otherwise, the patient appears clinically well on NC O2. GI prophylaxis also ordered.
[2023-01-17] MEDS: MAGNESIUM SULFATE 2 GM/50 ML PIGGYBACK IV (22:48)
[2023-01-18] VITALS (33 sets, daily range): BP systolic 94–141; BP diastolic 54–77; PULSE 58–77; RESP 14–35; TEMP 36.6; O2SAT 90–95
[2023-01-18] MEDS: POTASSIUM CHLORIDE 20 MEQ TAB 40 MEQ PO ×2 (00:06→04:18)
[2023-01-18] MEDS: ACETAMINOPHEN 325 MG TABLET 650 MG PO ×2 (03:12→14:30)
[2023-01-18] MEDS: CEFEPIME 2 GM in SODIUM CHLORIDE 0.9% 100 ML IV ×2 (04:17→15:43)
[2023-01-18 04:58] LABS: Add Manual Diff / Slide Review NO; Basophils Absolute Auto 100 /uL (0-100); Basophils Percent Auto 2.3 % (0-2); Eosinophils Absolute Auto 100 /uL (0-450); Eosinophils Percent Auto 3.3 % (2-4); Hematocrit 24.9 % (41-53); INR 1.7 (0.9-1.3); Lymphocytes Absolute Auto 500 /uL (1100-4500); Lymphocytes Percent Auto 18.8 % (25-40); Mean Corpuscular HGB Conc 32.2 % (30-36); Mean Corpuscular Hemoglobin 27.3 PG (26-34); Mean Corpuscular Volume 84.9 fL (80-100); Monocytes Absolute Auto 400 /uL (0-900); Monocytes Percent Auto 14.7 % (3-14); Neutrophils Absolute Auto 1700 /uL (1500-7000); Neutrophils Percent Auto 60.9 % (50-75); Platelet Count 89 X10^3/uL (150-400); Prothrombin Time 20.1 SECONDS (10.1-12.7); Red Blood Cell Count 2.94 X10^6/uL (4.5-5.9); Red Cell Distribution Width 15.6 % (11.6-14.8); White Blood Cell Count 2.7 X10^3/uL (4.5-11.0)
--- NOTE | 2023-01-18 05:00 | PC.NURSE ---
At approximately 0415, pt had 5 beat run of VT while resting. RN was in the room and assessed pt. Pt asymptomatic.
[2023-01-18 05:02] LABS: Blood Urea Nitrogen 23 mg/dL (9-20); Calcium 8.1 mg/dL (8.4-10.2); Chloride 86 mmol/L (98-107); Estimated Glomerular Filt Rate > 60 mL/min (>60); Glucose 87 mg/dL (80-110); HEMOLYSIS < 15 (0-50); Potassium 3.8 mmol/L (3.4-5.1); Sodium 131 mmol/L (137-145)
[2023-01-18 05:23] LABS: Carbon Dioxide 43 mmol/L (22-32)
[2023-01-18] MEDS: PANTOPRAZOLE DR 40 MG TABLET PO (06:01)
--- NOTE | 2023-01-18 06:36 | PC.NURSE ---
I agree with Mely Briones assessments, interventions, and documentation.
[2023-01-18] MEDS: carvediloL 12.5 MG TABLET PO ×2 (08:04→20:20)
[2023-01-18] MEDS: DICLOFENAC 1% GEL 100 GM 1 APPLIC TOP ×2 (08:05→20:20)
[2023-01-18] MEDS: ENOXAPARIN 100 MG/ML SYRINGE 80 MG SUBCUT ×2 (08:05→20:18)
[2023-01-18] MEDS: MESALAMINE 400 MG CAP.DRTAB. 800 MG PO ×2 (08:06→20:19)
[2023-01-18] MEDS: SODIUM CHLORIDE 0.9% FLUSH 10 ML IV ×2 (08:07→20:19)
--- NOTE | 2023-01-18 09:30 | DI.US.S_ITS ---
PROCEDURE: US [facility] VENOUS LOW EXTREM RT INDICATIONS: EDEMA TECHNIQUE: Real-time imaging, as well as color and pulse Doppler interrogation, were performed of the lower extremity deep veins from the inguinal ligament to the popliteal fossa. COMPARISON: [facility], [facility] VENOUS LOW EXTREM RT, 12/06/2022, 14:49. FINDINGS: The common femoral, femoral and popliteal veins are normally compressible, and free of intraluminal thrombus. Color and pulse Doppler demonstrate normal phasic intraluminal flow. There is normal augmentation response to distal compression maneuver. IMPRESSION: Negative for deep venous thrombosis of the right lower extremity. Dictated by: Harsha Toledo M.D. on 01/18/2023 at 10:45 Approved by: Harsha Toledo M.D. on 01/18/2023 at 10:46
--- NOTE | 2023-01-18 09:31 | PM.PN.EICU ---
Subjective Subjective IF CAMERA ACTIVATED, patient seen via real-time interactive audiovisual communication: Camera activated Consent obtained for tele-paraprofessional aide care: Yes Patient Location: ICU Provider location (State): [place] Other participants/roles: Bedside RN Interval history: NO acute issues overnight. Negative ~1 liter over the last 24 hours. Complains of R knee pain and received diclofenac with minimum improvement. Ordered venous duplex and added lidocaine patch. Current Medications Current Medications Medications: Home Medications albuterol sulfate 90 mcg/actuation aerosol inhaler (Proventil HFA) 2 puff INH PRN PRN Shortness Of Breath ##0 03/22/17 [History Confirmed 01/16/23] mesalamine 500 mg capsule,extended release (Pentasa) 1,000 mg PO BID ##0 03/24/17 [History Confirmed 01/16/23] calcium carbonate 500 mg-vitamin D3 2.5 mcg (100 unit) chewable tablet 3 tab PO DAILY ##0 03/31/17 [History Confirmed 01/16/23] aspirin 81 mg tablet,delayed release 81 mg PO DAILY 05/18/18 [History Confirmed 01/16/23] ferrous sulfate 325 mg (65 mg iron) tablet 325 mg PO BID 05/18/18 [History Confirmed 01/16/23] finasteride 5 mg tablet 5 mg PO DAILY 05/18/18 [History Confirmed 01/16/23] folic acid 1 mg tablet 1 mg PO DAILY 05/18/18 [History Confirmed 01/16/23] loratadine 10 mg tablet 10 mg PO DAILY 05/18/18 [History Confirmed 01/16/23] nitroglycerin 0.4 mg sublingual tablet (Nitrostat) 0.4 mg sublingual Q5-15M PRN Chest Pain 05/18/18 [History Confirmed 01/16/23] simvastatin 40 mg tablet 20 mg PO BEDTIME 12/07/21 [History Confirmed 01/16/23] fluticasone propionate 50 mcg/actuation nasal spray,suspension 1 spray intranasal DAILY PRN allergy symptoms 02/07/22 [History Confirmed 01/16/23] acetaminophen 325 mg tablet 650 mg PO Q4H PRN Pain 04/24/22 [History Confirmed 01/16/23] alfuzosin 10 mg tablet,extended release 24 hr 10 mg PO DAILY 04/24/22 [History Confirmed 01/16/23] ascorbic acid (vitamin C) 500 mg tablet 500 mg PO DAILY 04/24/22 [History Confirmed 01/16/23] metolazone 2.5 mg tablet 2.5 mg PO DAILY 04/24/22 [History Confirmed 01/16/23] neomycin-polymyxin V-cefyyodlrc-znlxlzvnwxygbh top ointment 1 ea topical DAILY PRN Skin Irritation 04/24/22 [History Confirmed 01/16/23] omeprazole 20 mg tablet,delayed release 20 mg PO DAILY 04/24/22 [History Confirmed 01/16/23] tamsulosin 0.4 mg capsule 0.4 mg PO DAILY 06/13/22 [History Confirmed 01/16/23] warfarin 5 mg tablet See Rx Instructions .Route .COMPLEX #90 tabs 06/17/22 [Rx Confirmed 01/16/23] carvedilol 12.5 mg tablet 12.5 mg PO BID 01/13/23 [History Confirmed 01/16/23] eplerenone 50 mg tablet 50 mg PO DAILY 01/13/23 [History Confirmed 01/16/23] isosorbide mononitrate 60 mg tablet,extended release 24 hr 60 mg PO DAILY 01/13/23 [History Confirmed 01/16/23] potassium chloride 20 mEq tablet,extended release 20 meq PO TID 01/13/23 [History Confirmed 01/16/23] torsemide 100 mg tablet 100 mg PO DAILY 01/13/23 [History Confirmed 01/16/23] amoxicillin 875 mg-potassium clavulanate 125 mg tablet 1 tab PO BID 5 days #10 tabs 01/14/23 [Rx Confirmed 01/16/23] Visit Medications (administered) Generic Name Dose Route Start Last Admin Trade Name Mukundq PRN Reason Stop Dose Admin Acetaminophen 650 mg 01/16/23 14:24 01/18/23 03:12 Acetaminophen 325 Mg Tablet PO 650 mg Q6H PRN Administration Fever/Mild Pain (1-3) Carvedilol 12.5 mg 01/16/23 21:00 01/18/23 08:04 Carvedilol 12.5 Mg Tablet PO 12.5 mg BID SCOTT Administration Diclofenac Sodium 1 applic 01/17/23 17:00 01/18/23 08:05 Diclofenac 1% Gel 100 Gm TOP 1 applic QID SCOTT Administration Enoxaparin Sodium 80 mg 01/16/23 21:00 01/18/23 08:05 Enoxaparin 100 Mg/Ml Syringe SUBCUT 80 mg BID SCOTT Administration Cefepime HCl 2 gm/ Sodium 100 mls @ 200 mls/hr 01/16/23 16:00 01/18/23 06:02 Chloride IV Infused Q12H SCOTT Infusion Mesalamine 800 mg 01/16/23 21:00 01/18/23 08:06 Mesalamine 400 Mg Cap.Drtab. PO 800 mg BID SCOTT Administration Eplerenone 25 Mg 25 mg 01/18/23 09:00 01/18/23 08:06 Tablet PO 25 mg DAILY SCOTT Administration Pantoprazole Sodium 40 mg 01/18/23 07:00 01/18/23 06:[address] 40 Mg Tablet PO 40 mg 0700 SCOTT Administration Sodium Chloride 10 ml 01/16/23 21:00 01/18/23 08:07 Sodium Chloride 0.9% Flush IV 10 ml BID SCOTT Administration Warfarin Sodium 5 mg 01/17/23 17:00 01/17/23 16:26 Warfarin 5 Mg Tablet PO 5 mg [id number] SCOTT Administration Objective Ventilator Parameters: Ventilator Settings FiO2 26 Labs 01/18/23 04:20 01/18/23 04:20 Labs: Laboratory Results - last 24 hr 01/17/23 01/17/23 01/18/23 11:56 21:15 04:20 WBC 2.7 L RBC 2.94 L Hgb 8.0 L Hct 24.9 L MCV 84.9 MCH 27.3 MCHC 32.2 RDW 15.6 H Plt Count 89 L Neut % (Auto) 60.9 Lymph % (Auto) 18.8 L [place] % (Auto) 14.7 H Eos % (Auto) 3.3 Baso % (Auto) 2.3 H Neut # (Auto) 1700 Lymph # (Auto) 500 L Hughes # (Auto) 400 Eos # (Auto) 100 Baso # (Auto) 100 PT INR Sodium Potassium 3.1 L 3.8 Chloride Carbon Dioxide BUN Creatinine Estimated GFR BUN/Creatinine Ratio Glucose Calcium Magnesium 1.6 01/18/23 01/18/23 04:20 04:20 WBC RBC Hgb Hct MCV MCH MCHC RDW Plt Count Neut % (Auto) Lymph % (Auto) [place] % (Auto) Eos % (Auto) Baso % (Auto) Neut # (Auto) Lymph # (Auto) [place] # (Auto) Eos # (Auto) Baso # (Auto) PT 20.1 H INR 1.7 H Sodium 131 L Potassium 3.8 Chloride 86 L Carbon Dioxide 43 H* BUN 23 H Creatinine 0.82 Estimated GFR > 60 BUN/Creatinine Ratio 28.0 H Glucose 87 Calcium 8.1 L Magnesium 2.0 Exam Vital Signs (past 8 hours): - 01/18/23 01:59 01/18/23 02:00 01/18/23 02:00 Temperature Pulse Rate 63 63 Respiratory Rate 19 18 Blood Pressure 97/54 L Pulse Oximetry 94 93 Oxygen Delivery Method 01/18/23 03:00 01/18/23 03:00 01/18/23 03:54 Temperature Pulse Rate 62 68 Respiratory Rate 24 22 Blood Pressure 105/55 L Pulse Oximetry 93 92 Oxygen Delivery Method 01/18/23 04:00 01/18/23 04:00 01/18/23 04:02 Temperature Pulse Rate 62 61 Respiratory Rate 25 H 23 Blood Pressure 103/57 L Pulse Oximetry 93 93 Oxygen Delivery Method 01/18/23 05:00 01/18/23 05:00 01/18/23 05:08 Temperature Pulse Rate 65 66 Respiratory Rate 14 21 Blood Pressure 105/56 L Pulse Oximetry 91 92 Oxygen Delivery Method 01/18/23 05:00 01/18/23 05:00 01/18/23 06:00 Temperature Pulse Rate 67 Respiratory Rate 25 H Blood Pressure Pulse Oximetry 94 91 Oxygen Delivery Method Room Air Room Air 01/18/23 06:01 01/18/23 06:01 01/18/23 07:00 Temperature Pulse Rate 67 Respiratory Rate 20 Blood Pressure 123/59 L 113/65 Pulse Oximetry 92 Oxygen Delivery Method 01/18/23 07:00 01/18/23 08:04 01/18/23 08:00 Temperature Pulse Rate 66 69 Respiratory Rate 32 H Blood Pressure 114/60 114/60 Pulse Oximetry 91 Oxygen Delivery Method 01/18/23 08:00 Temperature 98 F Pulse Rate 67 Respiratory Rate 26 H Blood Pressure Pulse Oximetry 93 Oxygen Delivery Method Fraction of Inspired Oxygen 26 Oxygen Delivery Method Room Air Oxygen Flow Rate 1 Narrative Exam Narrative: NOt in acute distress Quality TeleICU VTE Deep Vein Thrombosis/Pulmonary Embolism Present on Admission: No Assessment & Plan Assessment & Plan narrative: NEURO: # Decondition -- Encourage early mobility RESP: # Acute hypoxemia respiratory failure -- Resolved -- Encoruage IS -- Cont gentle diuresis as tolerated -- Strict I/O -- Avoid net positive fluid balance -- HOB elevation -- Aspiration precaution -- Goal SpO2 > 90% CVS: # Acute on chronic decompensapte PH -- Secondary to hypervolemia and hypercarbia -- Cont gentle diuresis o -- High lytes goal -- Strict I/O -- Low Na diet # A fib -- High lytes goal -- On coreg --On therapeutic lovenox : # Hypokalemia -- Resolved ID: # [id number] UTI -- On cefepime MSK: # R knee pain -- Recommend ortho consult -- Check venous duplex and added lidocaine patch -- PT/OT consultation ENDO: -- Goal BS < 180 Discussed with bedside RN. Tele paraprofessional aide will sign off. Please reconsult if ICU needs arise. Time Spent With Patient Time with patient: less than 30 minutes
[2023-01-18] MEDS: LIDOCAINE PATCH 1 EACH ADH..PATCH TOP (11:02)
--- NOTE | 2023-01-18 11:36 | PT-IP ANOTE ---
Per nursing pt is not appropriate at this time. He is to receive an ortho consult for R knee pain/swelling. Will check back in afternoon.
--- NOTE | 2023-01-18 11:52 | P.PN_ITS ---
Subjective Subjective Interval history: Patient states that he is feeling much better. Breathing is better. However persistent pain and swelling right knee. Has had problems with this before and has had previous knee injections. Apparently Dr. Levy orthopedics is following the patient and there was a plan for total knee replacement at some time in the future. DVT has been ruled out of the right lower extremity. No other patient and nursing complaints. Exam Vital Signs (past 8 hours): - 01/18/23 03:54 01/18/23 04:00 01/18/23 04:00 Temperature Pulse Rate 68 62 Respiratory Rate 22 25 H Blood Pressure 103/57 L Pulse Oximetry 92 93 Oxygen Delivery Method 01/18/23 04:02 01/18/23 05:00 01/18/23 05:00 Temperature Pulse Rate 61 65 Respiratory Rate 23 14 Blood Pressure 105/56 L Pulse Oximetry 93 91 Oxygen Delivery Method 01/18/23 05:08 01/18/23 05:00 01/18/23 05:00 Temperature Pulse Rate 66 Respiratory Rate 21 Blood Pressure Pulse Oximetry 92 94 Oxygen Delivery Method Room Air Room Air 01/18/23 06:00 01/18/23 06:01 01/18/23 06:01 Temperature Pulse Rate 67 67 Respiratory Rate 25 H 20 Blood Pressure 123/59 L Pulse Oximetry 91 92 Oxygen Delivery Method 01/18/23 07:00 01/18/23 07:00 01/18/23 08:04 Temperature Pulse Rate 66 69 Respiratory Rate 32 H Blood Pressure 113/65 114/60 Pulse Oximetry 91 Oxygen Delivery Method 01/18/23 08:00 01/18/23 08:00 01/18/23 09:00 Temperature 98 F Pulse Rate 67 Respiratory Rate 26 H Blood Pressure 114/60 115/66 Pulse Oximetry 93 Oxygen Delivery Method 01/18/23 09:00 01/18/23 09:00 01/18/23 09:00 Temperature Pulse Rate 68 Respiratory Rate 16 Blood Pressure Pulse Oximetry 91 95 Oxygen Delivery Method Room Air Room Air 01/18/23 10:00 01/18/23 10:00 Temperature 97.9 F Pulse Rate 62 Respiratory Rate 28 H Blood Pressure 132/69 Pulse Oximetry 93 Oxygen Delivery Method Fraction of Inspired Oxygen 26 Oxygen Delivery Method Room Air Oxygen Flow Rate 1 Narrative Exam Narrative: General:? Patient is a well-developed, elderly male in no acute distress HEENT:? Normocephalic, atraumatic, extraocular muscles intact Chest: Equal chest rise without nasal flaring, retractions, tachypneic or labored breathing. Lungs:? Auscultation of all lung [place] are clear without adventitious sounds, wheezes, rhonchi, or rales. Cardio: irregular rate and rhythm normal S1 & S2 Abdomen: S NT ND Musculoskeletal:? Muscle strength and tone are equal, effusion right knee with significant tenderness especially anteriorly in general. Skin:? Warm dry and intact without rashes or lesions.? Neuro:? Alert and orientated x3, moves all extremities, sensation to touch intact, no gross deficits noted of cranial nerves. Psych:? Patient has appropriate affect, mental status attitude thought context and judgment are appropriate for age. Objective Labs 01/18/23 04:20 01/18/23 04:20 Labs: Laboratory Results - last 24 hr 01/17/23 01/17/23 01/18/23 11:56 21:15 04:20 WBC 2.7 L RBC 2.94 L Hgb 8.0 L Hct 24.9 L MCV 84.9 MCH 27.3 MCHC 32.2 RDW 15.6 H Plt Count 89 L Neut % (Auto) 60.9 Lymph % (Auto) 18.8 L [place] % (Auto) 14.7 H Eos % (Auto) 3.3 Baso % (Auto) 2.3 H Neut # (Auto) 1700 Lymph # (Auto) 500 L [place] # (Auto) 400 Eos # (Auto) 100 Baso # (Auto) 100 PT INR Sodium Potassium 3.1 L 3.8 Chloride Carbon Dioxide BUN Creatinine Estimated GFR BUN/Creatinine Ratio Glucose Calcium Magnesium 1.6 01/18/23 01/18/23 04:20 04:20 WBC RBC Hgb Hct MCV MCH MCHC RDW Plt Count Neut % (Auto) Lymph % (Auto) [place] % (Auto) Eos % (Auto) Baso % (Auto) Neut # (Auto) Lymph # (Auto) [place] # (Auto) Eos # (Auto) Baso # (Auto) PT 20.1 H INR 1.7 H Sodium 131 L Potassium 3.8 Chloride 86 L Carbon Dioxide 43 H* BUN 23 H Creatinine 0.82 Estimated GFR > 60 BUN/Creatinine Ratio 28.0 H Glucose 87 Calcium 8.1 L Magnesium 2.0 [facility] Medical History (Updated 01/16/23 @ 20:22 by Mark Yin MD) Asthma BPH w urinary obs/LUTS Chicken pox Chronic anticoagulation Chronic atrial fibrillation Chronic diastolic CHF (congestive heart failure), NYHA class 1 Colon polyps Coronary artery disease Crohn's disease Diverticular disease Easy bruisability Essential hypertension Fractures Hearing loss Hemorrhoid History of colonic polyps History of urinary incontinence (~2018) Measles Mixed hyperlipidemia Mumps Myocardial infarction Obesity Osteoarthritis Positive PPD Primary osteoarthritis involving multiple joints Pulmonary hypertension Right inguinal hernia Tinnitus Vision disorder Surgical History Anesthesia H/O mitral valve replacement (~03/2017) Hx of heart artery stent (~1994) Family History Mother Congestive heart failure Father Coronary artery disease Social History household members: spouse Smoking Status: Never smoker substance use type: does not use Type(s) of exercise: walking frequency: daily Assessment & Plan Assessment & Plan narrative: #Acute hypoxemic and hypercapnic respiratory failure secondary to diastolic heart failure with acute metabolic encephalopathy -this has currently stabilized ?- no known COPD history, but does have pulmonary HTN noted on prior echo with severe TR noted in late 2021. Likely secondary to space ventilation. ?- echo with EF of 65-70%, but interventricular septum is flat consistent with volume overload. He has R heart failure as well. RVSP is 66, though prior TTE scanned into the computer was noted to be in the 80s. ?- Diuresed well initially with 60 mg IV lasix BID but now with contraction alkalosis so stopped. He takes metolazone and torsemide 2.5, 100 mg per cardiology outpatient notes. His compliance was questioned with prior cardiology documentation. ?- restarted eplerenone yesterday. ?- teleICU consult is much appreciated however they have signed off as of today. ?- PICC placement done given high probability initially for decompensation. ?- it is unclear if patient has had pulmonary hypertension evaluation, presumed he has as he follows with cardiology. No prior CTA seen to evaluate for pulmonary emboli, but might be better to perform V/Q scan. This will not likely change acute management given patient being bridged with lovenox and takes coumadin. This can be persued as an outpatient with cardiology if deemed necessary. ? #UTI, acute, due to pseudomonas, present on admission ?--was admitted previously for UTI, prior cultures did not grow pseudomonas however urine culture from last admit grew pseudomonas. ?-Changed antibiotics to cefepime. Organism sensitive to fluroquinolones but ordered cefepime 2g q8 while admitted due to warfarin interactions #Atrial fibrillation, active, chronic/permanent, on chronic Coumadin, present on admission * INR goal 2-3, 1.4 on admit. Continue briding lovenox given discussion above * coumadin per pharmacy and coreg to continue once meds reconciled #CAD, chronic, pulmonary hypertension, present on admission * Continue carvedilol, eplerenone #Acute on chronic Diastolic heart failure, with R heart failure,?with severe TR and pulmonary HTN * Last echo 06/27, EF 55% will repeat as noted above. RVSP 83 mmHg with right atrial pressure of 15 on echo. Repeat TTE as noted above #BPH, active, chronic, present on admission ?- will continue to hold BPH medications until improvement in BP #Crohn's colitis disease/IBD, chronic, present on admission * Continue mesalamine #Hyperlipidemia, mixed, chronic, present on admission * continue simvastatin 20 mg #Pancytopenia, chronic * Continue ferrous sulfate to benefit hemoglobin #Osteoarthritis, with muscle spasms, chronic, present on admission * Continue Flexeril #GERD, chronic, present on admission * Continue PPI? #Obesity, moderate, acute on chronic, present on admission * As evidence by BMI 37 * dietary consult ordered regarding nutritional education and information for dietary, lifestyle, exercise, and weight changes. * the patient is at much higher risk for medical and surgical complications due to obesity as it relates to chronic illnesses:, and acute illness.? The patient's obesity increases the difficulty and complexity of medical and/or surgical interventions, management and increases the chances of poor outcome such as morbidity and mortality as well as impaired wound healing. # right knee effusion and pain, acute on chronic -previous history of previous injections to treat, apparently Dr. Levy has proposed total knee replacement -we will consult Dr. Valencia on-call today to assess for injection to help settled pain and effusion so patient can proceed with physical therapy and mobilization -discussed with Dr. Valencia and injections are not done in the hospital. Therefore we will prescribe prednisone 30 mg daily to help settle inflammation and pain. Hopefully this will help with mobility. Continue lidocaine patch applied to the knee daily. # concern for DVT. Doppler ruled out DVT. Code status:Full Surrogate decision maker:Jg Medeiros DVT/VTE prophylaxis:? Coumadin Quality VTE Deep Vein Thrombosis/Pulmonary Embolism Present on Admission: No
[2023-01-18] MEDS: predniSONE 20 MG TABLET 30 MG PO (12:55)
--- NOTE | 2023-01-18 14:23 | CM.DPC ---
Met with patient and large family at bedside. Reminded patient of last CM assessment a week ago when he was severely fluid overloaded. He denies that he has CHF. He states his biggest problem is his knee and that he cannot move at all without severe pain. Son at bedside states that [facility], but he was hospitalized so cancelled. Son agrees to offer [place] CM name for further facilitation.Son states his dad is 100 % service connected. Patient and family at bedside, agree to SNF level rehab as a bridge to goal of home with 24/7 caregivers via family,[facility] or paid. CM team will send packet for review by [facility] pending PT/OT margarito.
--- NOTE | 2023-01-18 15:00 | PT.IPTN ---
Current Diagnoses Pulmonary hypertension, unspecified (01/16/23) Chronic atrial fibrillation, unspecified (01/16/23) Heart failure, unspecified (01/16/23) Acute respiratory failure with hypercapnia (01/16/23) Urinary tract infection, site not specified (01/16/23) Physical Therapy Treatment Note M2 PT-IP Current Condition Start: 01/16/23 13:39 Freq: Status: Active Protocol: Document 01/16/23 10:40 AB (Rec: 01/16/23 14:01 AB [id number]) Physical Therapy Current Condition Current Condition Evaluation Date 01/16/23 Treatment Diagnosis GLF; CHF; difficulty in walking Onset Date 01/15/23 M3 PT-IP Subjective Start: 01/16/23 13:39 Freq: Status: Active Protocol: Document 01/18/23 15:20 TS (Rec: 01/18/23 15:28 TS [id number]) Subjective Physical Therapy Visit Type Type Treatment Note Visit Start Time 15:00 Visit Stop Time 15:11 Total Visit Minutes 11 Notes Family present in room. Number of INTERVIEWING CLERK Visits 2 Physical Therapy Visit Comments Patient Comments Pt in too much pain to mobilize out of bed, agreeable to bed ex. Therapy Pain Assessment Pain When Pain Assessed During Mobility Pain Present Pain Present Pain Reported Location Right Knee Scale Used Numeric (0 - 10) Pain Behaviors Facial Grimacing,Guarding, Wincing Pain Management Techniques Elevation,Modification of Treatment,Re-positioning M4 PT-IP Mobility and Gait Start: 01/16/23 13:39 Freq: Status: Active Protocol: Document 01/18/23 15:20 TS (Rec: 01/18/23 15:28 TS [id number]) PT-Transfer Assessment Comments Mobility Comments Pt did not mobilize with PT this afternoon due to pain. Pt was agreeable to perform bed ex. He performed glute sets, quad sets, heel slides, Hip ABD and SLR x5. Pt was left in bed with sheet of exercises, pt asking for RN. Gait Assessment Comments Gait Comments Not at this time M5 PT-IP Objective Assessments Start: 01/16/23 13:39 Freq: Status: Active Protocol: Document 01/16/23 10:40 AB (Rec: 01/16/23 14:01 AB [id number]) Orientation Orientation/Cognition Level of Alertness Alert Orientation Name,Day of Week,Situation Language Function Ability Hard of Hearing Safety Awareness Decreased Safety Awareness Memory Description Short Term Impaired,Scrap Metal Burner Impaired Gross Range of Motion Lower Extremity ROM Assessment Within Functional Limits Strength Lower Extremity Strength Assessment Right Impaired Hip 2+/5 Knee 3+/5 Coordination Assessment Gross Coordination Gross Coordination WNL Sensation Assessment Sensation Gross Sensation WNL Muscle Tone Muscle Tone WNL Yes M6 PT-IP Treatment Start: 01/16/23 13:39 Freq: Status: Active Protocol: Document 01/18/23 15:20 TS (Rec: 01/18/23 15:28 TS [id number]) Physical Therapy Treatment Exercises Exercises Gluteal Sets,Quad Sets,Heel Slides,Straight Leg Raises, Supine Hip Abduction Education Education Provided Safety M7 PT-IP Assessment and Plan Start: 01/16/23 13:39 Freq: Status: Active Protocol: Document 01/18/23 15:20 TS (Rec: 01/18/23 15:28 TS [id number]) PT Summary Assessment and Plan Potential Rehabilitation Potential Fair Summary Impairments Pain,ROM,Strength,Balance, Coordination,Sensation,Tone, Cognition,Bed Mobility, Transfers,Gait,Activity Tolerance Progress Towards Goals Slow Progress due to Pain,Slow Progress due to Medical Issues,Slow Progress due to Activity Tolerance Assessment Summary Pt refused out of bed mobility due to pain in R knee. He was agreeable to perform bed exercises of glute sets, quad sets, heel slides, Hip ABD and SLR. PT is recommending SNF at this time to progress all functional mobility and activity tolerance. Goals Bed Mobility Goal Minimal Assistance Transfer Goal Minimal Assistance,Front Wheeled Walker Gait Goal Minimal Assistance,Front Wheel Walker Gait Distance 50 Other Goals improve bed mobility, transfers and ambulation using FWW SBA ~ 150 ft Days to Meet Goals 10 Frequency of Treatment Frequency Of Treatment Once a Day Treatment Plan Physical Therapy Treatment Plan Bed Mobility Training,Transfer Training,Gait Training, Therapeutic Exercise,Balance Retraining,Discharge Planning, Hot or Cold Pack,Neuromuscular Re-ed,Coordination Retraining Other Recommendations and Next Treatment assess bed mobility, continue Focus transfer training, ther ex for BLE strength, progress gait. Precautions Other Precautions falls, O2 sat Recommendations To Nursing Amount of Assist Needed Mechanical Lift Discharge Recommendations PT Discharge Recommendations SNF Rehab Equipment Needed for Home Before FWW if pt goes home Discharge Transportation Needs at Discharge Wheelchair/Cabulance
[2023-01-18] MEDS: OXYCODONE IR 5 MG TABLET PO (15:42)
[2023-01-18] MEDS: WARFARIN 5 MG TABLET PO (16:03)
[2023-01-18 18:49] LABS: PCO2 VBG 72.8 mmHg (45-50); PO2 VBG 39 mmHg (35-45)
[2023-01-18 18:50] LABS: Fractionated Inspired Oxygen 26; HCO3 VBG 45 mmol/L (24-28); Oxygen Saturation VBG 70 % (70-75); Total CO2 VBG 47 mmol/L (24-29)
--- NOTE | 2023-01-18 20:00 | PM.CN ---
History of Present Illness Consult details Date Patient Seen: 01/18/23 Time Patient Seen: 20:01 Chief complaint: GLF Reason for consult: Right knee pain Requesting provider: Aniyah Herman Narrative: Patient is an 82-year-old male with end-stage right knee tricompartmental arthritis. He was admitted to the hospital for anasarca and has been diuresed in the ICU over the last several days. Orthopedics was consulted after recommendation by the tele ICU team noticing increased right knee pain and difficulty with mobilization. They note the patient has been improving and discharge may coming in the next few days and they are wondering if there is any way to help with his knee pain and mobilization. They ask about the possibility of a knee corticosteroid injection. Patient reports that he has right knee pain not horrible now but has been worsening and he is currently on a waiting list with Dr. Levy for total knee replacement possibly in February. Denies any new injuries. States the wrap and the lidocaine patch that were put on today seem to be helping. Denies any redness around his knee Meds Home Medications and Allergies Home Medications Medication Instructions Recorded Confirmed Type albuterol sulfate 90 mcg/actuation 2 puff INH PRN PRN Shortness Of 03/22/17 01/16/23 History aerosol inhaler (Proventil HFA) Breath ##0 mesalamine 500 mg capsule,extended 1,000 mg PO BID ##0 03/24/17 01/16/23 History release (Pentasa) calcium carbonate 500 mg-vitamin 3 tab PO DAILY ##0 03/31/17 01/16/23 History D3 2.5 mcg (100 unit) chewable tablet aspirin 81 mg tablet,delayed 81 mg PO DAILY 05/18/18 01/16/23 History release ferrous sulfate 325 mg (65 mg 325 mg PO BID 05/18/18 01/16/23 History iron) tablet finasteride 5 mg tablet 5 mg PO DAILY 05/18/18 01/16/23 History folic acid 1 mg tablet 1 mg PO DAILY 05/18/18 01/16/23 History loratadine 10 mg tablet 10 mg PO DAILY 05/18/18 01/16/23 History nitroglycerin 0.4 mg sublingual 0.4 mg sublingual Q5-15M PRN Chest 05/18/18 01/16/23 History tablet (Nitrostat) Pain simvastatin 40 mg tablet 20 mg PO BEDTIME 12/07/21 01/16/23 History fluticasone propionate 50 1 spray intranasal DAILY PRN 02/07/22 01/16/23 History mcg/actuation nasal allergy symptoms spray,suspension acetaminophen 325 mg tablet 650 mg PO Q4H PRN Pain 04/24/22 01/16/23 History alfuzosin 10 mg tablet,extended 10 mg PO DAILY 04/24/22 01/16/23 History release 24 hr ascorbic acid (vitamin C) 500 mg 500 mg PO DAILY 04/24/22 01/16/23 History tablet metolazone 2.5 mg tablet 2.5 mg PO DAILY 04/24/22 01/16/23 History neomycin-polymyxin 1 ea topical DAILY PRN Skin 04/24/22 01/16/23 History A-qlrlljavuv-prszejpftxglcj top Irritation ointment omeprazole 20 mg tablet,delayed 20 mg PO DAILY 04/24/22 01/16/23 History release tamsulosin 0.4 mg capsule 0.4 mg PO DAILY 06/13/22 01/16/23 History warfarin 5 mg tablet See Rx Instructions .Route 06/17/22 01/16/23 Rx .COMPLEX #90 tabs carvedilol 12.5 mg tablet 12.5 mg PO BID 01/13/23 01/16/23 History eplerenone 50 mg tablet 50 mg PO DAILY 01/13/23 01/16/23 History isosorbide mononitrate 60 mg 60 mg PO DAILY 01/13/23 01/16/23 History tablet,extended release 24 hr potassium chloride 20 mEq 20 meq PO TID 01/13/23 01/16/23 History tablet,extended release torsemide 100 mg tablet 100 mg PO DAILY 01/13/23 01/16/23 History amoxicillin 875 mg-potassium 1 tab PO BID 5 days #10 tabs 01/14/23 01/16/23 Rx clavulanate 125 mg tablet Allergies Allergy/AdvReac Type Severity Reaction Status Date / Time ibuprofen Allergy Mild NOT GOOD Verified 10/10/22 12:53 FOR STOMACH BLEEDING iodine Allergy Mild UNKNOWN Verified 10/10/22 12:53 Sulfa (Sulfonamide Allergy Mild BURNED A Verified 10/10/22 12:53 Antibiotics) HOLE THRU INTESTINES thallium-201 Allergy Mild BREAKS OUT Verified 10/10/22 12:53 IN BLOTCHES AND ITCHING terazosin Allergy Hypotension Verified 10/10/22 12:53 spironolactone AdvReac Verified 10/10/22 12:53 Review of Systems Review of Systems ROS: Yes All systems reviewed with the patient and are negative except as otherwise documented Exam Vital Signs (past 8 hours): - 01/18/23 13:00 01/18/23 13:00 01/18/23 13:00 Temperature Pulse Rate 71 Respiratory Rate 33 H Blood Pressure 119/68 Pulse Oximetry 92 90 L Oxygen Delivery Method Room Air 01/18/23 14:00 01/18/23 14:00 01/18/23 15:00 Temperature Pulse Rate 67 Respiratory Rate 30 H Blood Pressure 105/57 L 115/62 Pulse Oximetry 93 Oxygen Delivery Method 01/18/23 15:00 01/18/23 17:00 Temperature 98 F Pulse Rate 67 Respiratory Rate 31 H Blood Pressure Pulse Oximetry 93 91 Oxygen Delivery Method Room Air Fraction of Inspired Oxygen 26 Oxygen Delivery Method Room Air Oxygen Flow Rate 1 Narrative Exam Narrative: Alert oriented no acute distress. Breathing unlabored on room air heart regular rate. Patient is sitting in bed in no acute distress. His right knee has an Nikolai wrap in place. This is removed there is no erythema. There is a lidocaine patch in place. His calf and thigh are soft. He demonstrates 5/5 dorsiflexion plantar flexion bilateral lower extremities. With brisk capillary refill and palpable dorsalis pedis pulses. He is no signs of acute infection. Does have decreased range of motion and crepitus consistent with end-stage tricompartmental knee arthritis. Objective Imaging Venous duplex: Radiologist's impression: No DVT Knee x-ray: My impression: At side previous knee x-rays four views right from 11/13/2022 demonstrates end-stage right knee tricompartmental arthritis Kellgren Sanju grade 4 [id number] arthritis medial lateral and patellofemoral compartments with a very thin patella that is lateralized. Labs 01/18/23 04:20 01/18/23 04:20 Labs: Laboratory Results - last 24 hr 01/17/23 01/17/23 01/18/23 05:13 21:15 04:20 WBC 2.7 L RBC 2.94 L Hgb 8.0 L Hct 24.9 L MCV 84.9 MCH 27.3 MCHC 32.2 RDW 15.6 H Plt Count 89 L Neut % (Auto) 60.9 Lymph % (Auto) 18.8 L [place] % (Auto) 14.7 H Eos % (Auto) 3.3 Baso % (Auto) 2.3 H Neut # (Auto) 1700 Lymph # (Auto) 500 L [place] # (Auto) 400 Eos # (Auto) 100 Baso # (Auto) 100 PT INR VBG pH 7.40 VBG pCO2 72.8 H VBG pO2 39 VBG HCO3 45 H VBG Total CO2 47 H VBG O2 Saturation 70 VBG Base Excess 20.0 H FiO2 26 Sodium Potassium 3.8 Chloride Carbon Dioxide BUN Creatinine Estimated GFR BUN/Creatinine Ratio Glucose Calcium Magnesium 1.6 01/18/23 01/18/23 04:20 04:20 WBC RBC Hgb Hct MCV MCH MCHC RDW Plt Count Neut % (Auto) Lymph % (Auto) [place] % (Auto) Eos % (Auto) Baso % (Auto) Neut # (Auto) Lymph # (Auto) [place] # (Auto) Eos # (Auto) Baso # (Auto) PT 20.1 H INR 1.7 H VBG pH VBG pCO2 VBG pO2 VBG HCO3 VBG Total CO2 VBG O2 Saturation VBG Base Excess FiO2 Sodium 131 L Potassium 3.8 Chloride 86 L Carbon Dioxide 43 H* BUN 23 H Creatinine 0.82 Estimated GFR > 60 BUN/Creatinine Ratio 28.0 H Glucose 87 Calcium 8.1 L Magnesium 2.0 PFSH Medical History Asthma BPH w urinary obs/LUTS Chicken pox Chronic anticoagulation Chronic atrial fibrillation Chronic diastolic CHF (congestive heart failure), NYHA class 1 Colon polyps Coronary artery disease Crohn's disease Diverticular disease Easy bruisability Essential hypertension Fractures Hearing loss Hemorrhoid History of colonic polyps History of urinary incontinence (~2018) Measles Mixed hyperlipidemia Mumps Myocardial infarction Obesity Osteoarthritis Positive PPD Primary osteoarthritis involving multiple joints Pulmonary hypertension Right inguinal hernia Tinnitus Vision disorder Surgical History Anesthesia H/O mitral valve replacement (~03/2017) Hx of heart artery stent (~1994) Family History Mother Congestive heart failure Father Coronary artery disease Social History household members: spouse Tobacco & Substance Use Smoking Status: Never smoker substance use type: does not use Diet and Exercise Type(s) of exercise: walking frequency: daily Assessment & Plan Assessment and plan (1) Arthritis of knee: Status: Acute Plan The patient is an 82-year-old male that is neutropenic and anemic, platelets 89 with severe end-stage right knee arthritis that has failed conservative treatment with therapy bracing anti-inflammatories and injections. He is currently on the wait list for total knee replacement which would be the curative treatment. Does have significant medical risk factors but has been undergoing optimization. He would need to be optimized harm his current medical exacerbations and then would able to proceed on the knee arthroplasty list. I do not recommend any intra-articular injections of any sort including corticosteroid as these would disqualify him from knee arthroplasty within the next 3 months this is a known risk factor for infection. I recommend maximizing treatment with oral medications be a short oral dose of steroids or Tylenol. He has limited ability to take anti-inflammatories due to his anticoagulants. Recommend lidocaine patches braces or wraps and assistive devices. Time Spent With Patient Time with patient: less than 30 minutes
[2023-01-19] VITALS (26 sets, daily range): BP systolic 114–142; BP diastolic 61–79; PULSE 67–80; RESP 17–34; TEMP 36.1–37.1; O2SAT 86–96
[2023-01-19] MEDS: CEFEPIME 2 GM in SODIUM CHLORIDE 0.9% 100 ML IV ×2 (03:32→15:59)
[2023-01-19] MEDS: ACETAMINOPHEN 325 MG TABLET 650 MG PO ×2 (03:39→08:14)
--- NOTE | 2023-01-19 05:14 | PC.NURSE ---
Patient remembers staff name, but does not recognize that he is in the hospital. Reorients easily, states I was dreaming. Out of bed to BSC, c/o pain to the right knee with activity. 2 person assist with a FWW.
[2023-01-19 05:53] LABS: Add Manual Diff / Slide Review NO; Basophils Absolute Auto 0 /uL (0-100); Basophils Percent Auto 0.6 % (0-2); Eosinophils Absolute Auto 0 /uL (0-450); Eosinophils Percent Auto 0.2 % (2-4); Hematocrit 28.2 % (41-53); Hemoglobin 9.2 g/dL (13.5-17.5); Lymphocytes Absolute Auto 600 /uL (1100-4500); Lymphocytes Percent Auto 12.3 % (25-40); Mean Corpuscular HGB Conc 32.5 % (30-36); Mean Corpuscular Hemoglobin 27.4 PG (26-34); Mean Corpuscular Volume 84.4 fL (80-100); Monocytes Absolute Auto 700 /uL (0-900); Monocytes Percent Auto 13.5 % (3-14); Neutrophils Absolute Auto 3600 /uL (1500-7000); Neutrophils Percent Auto 73.4 % (50-75); Platelet Count 119 X10^3/uL (150-400); Red Blood Cell Count 3.34 X10^6/uL (4.5-5.9); Red Cell Distribution Width 15.6 % (11.6-14.8); White Blood Cell Count 4.9 X10^3/uL (4.5-11.0)
[2023-01-19 05:59] LABS: Prothrombin Time 23.5 SECONDS (10.1-12.7)
[2023-01-19 06:04] LABS: BUN Creatinine Ratio 31.5 (6-22); Blood Urea Nitrogen 23 mg/dL (9-20); Calcium 8.5 mg/dL (8.4-10.2); Chloride 88 mmol/L (98-107); Estimated Glomerular Filt Rate > 60 mL/min (>60); Glucose 120 mg/dL (80-110); HEMOLYSIS < 15 (0-50); Magnesium 2.3 mg/dL (1.6-2.3); Potassium 4.4 mmol/L (3.4-5.1); Sodium 132 mmol/L (137-145)
[2023-01-19] MEDS: PANTOPRAZOLE DR 40 MG TABLET PO (06:04)
[2023-01-19 06:14] LABS: Carbon Dioxide 41 mmol/L (22-32)
[2023-01-19] MEDS: carvediloL 12.5 MG TABLET PO ×2 (08:16→20:41)
[2023-01-19] MEDS: DICLOFENAC 1% GEL 100 GM 1 APPLIC TOP ×2 (08:17→20:40)
[2023-01-19] MEDS: predniSONE 20 MG TABLET 30 MG PO (08:18)
[2023-01-19] MEDS: SODIUM CHLORIDE 0.9% FLUSH 10 ML IV ×3 (08:20→20:40)
[2023-01-19] MEDS: MESALAMINE 400 MG CAP.DRTAB. 800 MG PO ×2 (08:20→20:40)
--- NOTE | 2023-01-19 08:26 | P.PN_ITS ---
Subjective Subjective Interval history: Patient has no new complaints. Has been trying to mobilize and does have pain right knee however is able to do. Slept well last night. No new nursing complaints. Exam Vital Signs (past 8 hours): - 01/19/23 04:00 01/19/23 04:00 01/19/23 07:45 Temperature 97.9 F 98.7 F Pulse Rate 72 71 Respiratory Rate 22 18 Blood Pressure 123/61 121/68 Pulse Oximetry 94 93 96 Oxygen Delivery Method Room Air Oxygen Flow Rate 0 01/19/23 07:59 01/19/23 07:00 01/19/23 08:00 Temperature 96.9 F L Pulse Rate 70 Respiratory Rate 17 Blood Pressure 141/68 H Pulse Oximetry 94 94 Oxygen Delivery Method Room Air Room Air Oxygen Flow Rate 01/19/23 08:16 Temperature Pulse Rate 73 Respiratory Rate Blood Pressure 141/70 H Pulse Oximetry Oxygen Delivery Method Oxygen Flow Rate Fraction of Inspired Oxygen 26 Oxygen Delivery Method Room Air Oxygen Flow Rate 0 Narrative Exam Narrative: General:? Patient is a well-developed, elderly male in no acute distress HEENT:? Normocephalic, atraumatic, extraocular muscles intact Chest: Equal chest rise without nasal flaring, retractions, tachypneic or labore d breathing. Lungs:? Auscultation of all lung [place] are clear without adventitious sounds, wheezes, rhonchi, or rales. Cardio: irregular rate and rhythm normal S1 & S2 Abdomen: S NT ND Musculoskeletal:? Muscle strength and tone are equal, effusion right knee and associated pain. Skin:? Warm dry and intact without rashes or lesions.? Neuro:? Alert and orientated x3, moves all extremities, sensation to touch intact Psych:? Patient has appropriate affect, mental status attitude thought context and judgment are appropriate for age Objective Labs 01/19/23 05:40 01/19/23 05:40 Labs: Laboratory Results - last 24 hr 01/17/23 01/19/23 01/19/23 05:13 05:40 05:40 WBC 4.9 D RBC 3.34 L Hgb 9.2 L Hct 28.2 L MCV 84.4 MCH 27.4 MCHC 32.5 RDW 15.6 H Plt Count 119 L Neut % (Auto) 73.4 Lymph % (Auto) 12.3 L [place] % (Auto) 13.5 Eos % (Auto) 0.2 L Baso % (Auto) 0.6 Neut # (Auto) 3600 Lymph # (Auto) 600 L [place] # (Auto) 700 Eos # (Auto) 0 Baso # (Auto) 0 PT INR VBG pH 7.40 VBG pCO2 72.8 H VBG pO2 39 VBG HCO3 45 H VBG Total CO2 47 H VBG O2 Saturation 70 VBG Base Excess 20.0 H FiO2 26 Sodium 132 L Potassium 4.4 Chloride 88 L Carbon Dioxide 41 H* BUN 23 H Creatinine 0.73 Estimated GFR > 60 BUN/Creatinine Ratio 31.5 H Glucose 120 H Calcium 8.5 Magnesium 2.3 01/19/23 05:40 WBC RBC Hgb Hct MCV MCH MCHC RDW Plt Count Neut % (Auto) Lymph % (Auto) [place] % (Auto) Eos % (Auto) Baso % (Auto) Neut # (Auto) Lymph # (Auto) [place] # (Auto) Eos # (Auto) Baso # (Auto) PT 23.5 H INR 2.0 H VBG pH VBG pCO2 VBG pO2 VBG HCO3 VBG Total CO2 VBG O2 Saturation VBG Base Excess FiO2 Sodium Potassium Chloride Carbon Dioxide BUN Creatinine Estimated GFR BUN/Creatinine Ratio Glucose Calcium Magnesium PFSH Medical History Asthma BPH w urinary obs/LUTS Chicken pox Chronic anticoagulation Chronic atrial fibrillation Chronic diastolic CHF (congestive heart failure), NYHA class 1 Colon polyps Coronary artery disease Crohn's disease Diverticular disease Easy bruisability Essential hypertension Fractures Hearing loss Hemorrhoid History of colonic polyps History of urinary incontinence (~2018) Measles Mixed hyperlipidemia Mumps Myocardial infarction Obesity Osteoarthritis Positive PPD Primary osteoarthritis involving multiple joints Pulmonary hypertension Right inguinal hernia Tinnitus Vision disorder Surgical History Anesthesia H/O mitral valve replacement (~03/2017) Hx of heart artery stent (~1994) Family History Mother Congestive heart failure Father Coronary artery disease Social History household members: spouse Smoking Status: Never smoker substance use type: does not use Type(s) of exercise: walking frequency: daily Assessment & Plan Assessment & Plan narrative: #Acute hypoxemic and hypercapnic respiratory failure secondary to diastolic heart failure with acute metabolic encephalopathy -this has currently stabilized ?- no known COPD history, but does have pulmonary HTN noted on prior echo with severe TR noted in late 2021. Likely secondary to space ventilation. ?- echo with EF of 65-70%, but interventricular septum is flat consistent with volume overload. He has R heart failure as well. RVSP is 66, though prior TTE scanned into the computer was noted to be in the 80s. ?- Diuresed well initially with 60 mg IV lasix BID but now with contraction alkalosis so stopped. He takes metolazone and torsemide 2.5, 100 mg per cardiology outpatient notes. His compliance was questioned with prior cardiology documentation. ?- restarted eplerenone. ?- teleICU consult is much appreciated however they have signed off. ?- PICC placement done given high probability initially for decompensation. ?- it is unclear if patient has had pulmonary hypertension evaluation, presumed he has as he follows with cardiology. No prior CTA seen to evaluate for pulmonary emboli, but might be better to perform V/Q scan. This will not likely change acute management given patient being bridged with lovenox and takes coumadin. Lovenox stopped on today (01/19) with INR 2.2. ? #UTI, acute, due to pseudomonas, present on admission ?--was admitted previously for UTI, prior cultures did not grow pseudomonas however urine culture from last admit grew pseudomonas. ?-Changed antibiotics to cefepime. Organism sensitive to fluroquinolones but ordered cefepime 2g q8 while admitted due to warfarin interactions #Atrial fibrillation, active, chronic/permanent, on chronic Coumadin, present on admission * INR goal 2-3, 1.4 on admit. Briding lovenox given discussion above, now completed bridging * coumadin per pharmacy and coreg to continue once meds reconciled #CAD, chronic, pulmonary hypertension, present on admission * Continue carvedilol, eplerenone #Acute on chronic Diastolic heart failure, with R heart failure,?with severe TR and pulmonary HTN * Last echo 06/27, EF 55% will repeat as noted above. RVSP 83 mmHg with right atrial pressure of 15 on echo. Repeat TTE as noted above #BPH, active, chronic, present on admission ?- will continue to hold BPH medications until improvement in BP, restart today (01/19) #Crohn's colitis disease/IBD, chronic, present on admission * Continue mesalamine #Hyperlipidemia, mixed, chronic, present on admission * continue simvastatin 20 mg #Pancytopenia, chronic * Continue ferrous sulfate to benefit hemoglobin #Osteoarthritis, with muscle spasms, chronic, present on admission * Continue Flexeril #GERD, chronic, present on admission * Continue PPI? #Obesity, moderate, acute on chronic, present on admission * As evidence by BMI 37 * dietary consult ordered regarding nutritional education and information for dietary, lifestyle, exercise, and weight changes. * the patient is at much higher risk for medical and surgical complications due to obesity as it relates to chronic illnesses:, and acute illness.? The patient's obesity increases the difficulty and complexity of medical and/or surgical interventions, management and increases the chances of poor outcome such as morbidity and mortality as well as impaired wound healing. # right knee effusion and pain, acute on chronic ?? -previous history of previous injections to treat, apparently Dr. Levy has proposed total knee replacement ?? -we will consult Dr. Valencia on-call today to assess for injection to help settled pain and effusion so patient can proceed with physical therapy and mobilization -discussed with Dr. Valencia and injections are not done in the hospital.? Therefore have prescribe prednisone 30 mg dailyfor 5 days to help settle inflammation and pain.? Hopefully this will help with mobility.? Continue lidocaine patch applied to the knee daily. Patient is slowly improving. # concern for DVT.? Doppler ruled out DVT. Code status:Full Surrogate decision maker:? Italia Medeiros DVT/VTE prophylaxis:? Coumadin, discontinued bridging with Lovenox today Quality VTE Deep Vein Thrombosis/Pulmonary Embolism Present on Admission: No
[2023-01-19 08:31] LABS: NT-proBNP (BNP-Adult 18+) 5970 pg/mL (<450)
[2023-01-19] MEDS: TAMSULOSIN 0.4 MG CAPSULE PO (09:02)
[2023-01-19] MEDS: LIDOCAINE PATCH 1 EACH ADH..PATCH TOP (09:02)
--- NOTE | 2023-01-19 11:12 | CM.DPC ---
MANJU Kapoor states patient and family would like to review DCP again. Additional SNF and HH options reviewed. Family states they would also like a [facility] application. Health teaching done re: Medicaid LTC application and medical/financial qualifiers outlined on paper application. Patients niece state she will speak to patients and get together for application. Patient and family agree to SNF as bridge to goal. [facility] is first choice, [facility] second choice. CM team will send packets for review when PT/OT evals are available.
--- NOTE | 2023-01-19 11:50 | PT.IPTN ---
Current Diagnoses Pulmonary hypertension, unspecified (01/16/23) Chronic atrial fibrillation, unspecified (01/16/23) Heart failure, unspecified (01/16/23) Acute respiratory failure with hypercapnia (01/16/23) Unilateral primary osteoarthritis, unspecified knee (01/16/23) Urinary tract infection, site not specified (01/16/23) Physical Therapy Treatment Note M2 PT-IP Current Condition Start: 01/16/23 13:39 Freq: Status: Active Protocol: Document 01/16/23 10:40 AB (Rec: 01/16/23 14:01 AB [id number]) Physical Therapy Current Condition Current Condition Evaluation Date 01/16/23 Treatment Diagnosis GLF; CHF; difficulty in walking Onset Date 01/15/23 M3 PT-IP Subjective Start: 01/16/23 13:39 Freq: Status: Active Protocol: Document 01/19/23 12:24 TS (Rec: 01/19/23 12:37 TS [id number]) Subjective Physical Therapy Visit Type Type Treatment Note Visit Start Time 11:50 Visit Stop Time 12:05 Total Visit Minutes 15 Number of STATEMENT 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 With motivation from therapist and RN pt agreeable to transfer to chair for lunch. Therapy Pain Assessment Pain When Pain Assessed During Mobility Pain Present Pain Present Pain Reported M4 PT-IP Mobility and Gait Start: 01/16/23 13:39 Freq: Status: Active Protocol: Document 01/19/23 12:24 TS (Rec: 01/19/23 12:37 TS [id number]) PT-Bed Mobility Assessment Supine to Sit Supine to Sit Minimal Assistance,1 Person Assistance,Head of Bed Elevated Scooting Scooting to Edge of Bed Minimal Assistance PT-Transfer Assessment Sit to and From Stand Sit to and from Stand Minimal Assistance,2 Person Assistance,Use of Upper Extremities Equipment Transfer Assistive Device Gait Belt,Front Wheeled Walker Orthotic/Prosthetic Devices or Brace: No Transfers Transfer Destination Chair Transfer Technique Ambulated Transfer Ability Level of Assist Minimal Assistance,1 Person Assistance,Use of Upper Extremities Comments Mobility Comments BP taken in supine prior to mobility 139/75, Spo2 92% on RA. Supine to sit Carmen for LEs over EOB and posterior LOB when uprighting trunk. Pt scooted to EOB Carmen with cues for feet flat on floor before standing. Sit to stand Carmen x2 with FWW, pt with some retroleaning, corrected with cues for posture. He ambulated to chair Carmen for balance and FWW management, required cueing for sequencing of steps , [id number] LOB required Carmen for correction. Pt was left in chair with call light nearby and all needs met. Gait Assessment Gait Gait Assistance Required: Minimum Assistance,1 Person Assist Distance (Feet) 3 Assistive Devices Assistive Device Gait Belt,Front Wheeled Walker Orthotic/Prosthetic Devices or Brace: No Gait Deviations General Gait Pattern Antalgic,Decreased Stride Length,Decreased Feet Clearance,Flexed Trunk Factors Limiting Gait Function Factors Limiting Gait Function Decreased Activity Tolerance, Decreased Strength,Limited Range of Motion,Pain,Poor Balance Comments Gait Comments Stand step pivot transfer to chair. PT-Balance Assessment Sitting Balance and Reactions Static Sitting Balance Ability Good Dynamic Sitting Balance Ability Fair Standing Balance and Reactions Static Standing Balance Ability Fair Dynamic Standing Balance Ability Fair Device Used FWW M5 PT-IP Objective Assessments Start: 01/16/23 13:39 Freq: Status: Active Protocol: Document 01/16/23 10:40 AB (Rec: 01/16/23 14:01 AB [id number]) Orientation Orientation/Cognition Level of Alertness Alert Orientation Name,Day of Week,Situation Language Function Ability Hard of Hearing Safety Awareness Decreased Safety Awareness Memory Description Short Term Impaired,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 Impaired Gross Range of Motion Lower Extremity ROM Assessment Within Functional Limits Strength Lower Extremity Strength Assessment Right Impaired Hip 2+/5 Knee 3+/5 Coordination Assessment Gross Coordination Gross Coordination WNL Sensation Assessment Sensation Gross Sensation WNL Muscle Tone Muscle Tone WNL Yes M6 PT-IP Treatment Start: 01/16/23 13:39 Freq: Status: Active Protocol: Document 01/19/23 12:24 TS (Rec: 01/19/23 12:37 TS [id number]) Physical Therapy Treatment Education Education Provided Safety M7 PT-IP Assessment and Plan Start: 01/16/23 13:39 Freq: Status: Active Protocol: Document 01/19/23 12:24 TS (Rec: 01/19/23 12:37 TS [id number]) PT Summary Assessment and Plan Potential Rehabilitation Potential Fair Summary Impairments Pain,ROM,Strength,Balance, Coordination,Sensation,Tone, Cognition,Bed Mobility, Transfers,Gait,Activity Tolerance Progress Towards Goals Slow Progress due to Pain,Slow Progress due to Medical Issues,Slow Progress due to Activity Tolerance Assessment Summary Pt is making slow progress with his mobility. He was Carmen for bed mobility and cueing for scooting to EOB. He performed sit to stand x1 Carmen x2 with FWW, pt initially retroleaning, improved with cues for upright posture. He performed stand step pivot transfer to chair with Carmen for balance and FWW management , had [id number] LOB requiring Carmen. PT is recommending SNF to progress functional mobility and activity tolerance. Goals Bed Mobility Goal Minimal Assistance Transfer Goal Minimal Assistance,Front Wheeled Walker Gait Goal Minimal Assistance,Front Wheel Walker Gait Distance 50 Other Goals improve bed mobility, transfers and ambulation using FWW SBA ~ 150 ft Days to Meet Goals 10 Frequency of Treatment Frequency Of Treatment Once a Day Treatment Plan Physical Therapy Treatment Plan Bed Mobility Training,Transfer Training,Gait Training, Therapeutic Exercise,Balance Retraining,Discharge Planning, Hot or Cold Pack,Neuromuscular Re-ed,Coordination Retraining Other Recommendations and Next Treatment assess bed mobility, continue Focus transfer training, ther ex for BLE strength, progress gait. Precautions Other Precautions falls, O2 sat Recommendations To Nursing Amount of Assist Needed 2 Person Assist Discharge Recommendations PT Discharge Recommendations SNF Rehab Equipment Needed for Home Before FWW if pt goes home Discharge Transportation Needs at Discharge Wheelchair/Cabulance
--- NOTE | 2023-01-19 13:39 | P.PN_ITS ---
Subjective Subjective Interval history: He continues to note substantial right knee pain. He is doing a little better transitioning out of bed. Exam Vital Signs (past 8 hours): - 01/19/23 07:45 01/19/23 07:59 01/19/23 07:00 Temperature 98.7 F 96.9 F L Pulse Rate 71 70 Respiratory Rate 18 17 Blood Pressure 121/68 141/68 H Pulse Oximetry 96 94 Oxygen Delivery Method Room Air Oxygen Flow Rate 0 01/19/23 08:00 01/19/23 08:16 01/19/23 12:00 Temperature Pulse Rate 73 Respiratory Rate Blood Pressure 141/70 H Pulse Oximetry 94 95 Oxygen Delivery Method Room Air Room Air Oxygen Flow Rate 01/19/23 12:00 Temperature 97.6 F Pulse Rate 80 Respiratory Rate 18 Blood Pressure 121/76 Pulse Oximetry 95 Oxygen Delivery Method Oxygen Flow Rate Fraction of Inspired Oxygen 26 Oxygen Delivery Method Room Air Oxygen Flow Rate 0 Narrative Exam Narrative: He looks slightly short of breath. He has transitioned out of bed with single person standby assistance the chair. His right knee is in an Nikolai wrap there is significant crepitation with range of motion has minimal swelling in bilateral lower extremities. Objective Labs 01/19/23 05:40 01/19/23 05:40 Labs: Laboratory Results - last 24 hr 01/17/23 01/19/23 01/19/23 05:13 05:40 05:40 WBC 4.9 D RBC 3.34 L Hgb 9.2 L Hct 28.2 L MCV 84.4 MCH 27.4 MCHC 32.5 RDW 15.6 H Plt Count 119 L Neut % (Auto) 73.4 Lymph % (Auto) 12.3 L [place] % (Auto) 13.5 Eos % (Auto) 0.2 L Baso % (Auto) 0.6 Neut # (Auto) 3600 Lymph # (Auto) 600 L [place] # (Auto) 700 Eos # (Auto) 0 Baso # (Auto) 0 PT INR VBG pH 7.40 VBG pCO2 72.8 H VBG pO2 39 VBG HCO3 45 H VBG Total CO2 47 H VBG O2 Saturation 70 VBG Base Excess 20.0 H FiO2 26 Sodium 132 L Potassium 4.4 Chloride 88 L Carbon Dioxide 41 H* BUN 23 H Creatinine 0.73 Estimated GFR > 60 BUN/Creatinine Ratio 31.5 H Glucose 120 H Calcium 8.5 Magnesium 2.3 NT-Pro-B Natriuret Pep 01/19/23 01/19/23 05:40 05:40 WBC RBC Hgb Hct MCV MCH MCHC RDW Plt Count Neut % (Auto) Lymph % (Auto) [place] % (Auto) Eos % (Auto) Baso % (Auto) Neut # (Auto) Lymph # (Auto) [place] # (Auto) Eos # (Auto) Baso # (Auto) PT 23.5 H INR 2.0 H VBG pH VBG pCO2 VBG pO2 VBG HCO3 VBG Total CO2 VBG O2 Saturation VBG Base Excess FiO2 Sodium Potassium Chloride Carbon Dioxide BUN Creatinine Estimated GFR BUN/Creatinine Ratio Glucose Calcium Magnesium NT-Pro-B Natriuret Pep 5970 H PFSH Medical History Asthma BPH w urinary obs/LUTS Chicken pox Chronic anticoagulation Chronic atrial fibrillation Chronic diastolic CHF (congestive heart failure), NYHA class 1 Colon polyps Coronary artery disease Crohn's disease Diverticular disease Easy bruisability Essential hypertension Fractures Hearing loss Hemorrhoid History of colonic polyps History of urinary incontinence (~2018) Measles Mixed hyperlipidemia Mumps Myocardial infarction Obesity Osteoarthritis Positive PPD Primary osteoarthritis involving multiple joints Pulmonary hypertension Right inguinal hernia Tinnitus Vision disorder Surgical History Anesthesia H/O mitral valve replacement (~03/2017) Hx of heart artery stent (~1994) Family History Mother Congestive heart failure Father Coronary artery disease Social History household members: spouse Smoking Status: Never smoker substance use type: does not use Type(s) of exercise: walking frequency: daily Assessment & Plan Assessment and plan (1) Arthritis of knee: Status: Acute (2) Adult failure to thrive: Status: Acute (3) Chronic a-fib: Status: Acute (4) Tricuspid regurgitation: Status: Acute (5) Respiratory failure: Qualifiers: Chronicity: acute Respiratory failure complication: hypercapnia Qualified Code(s): J96.02 - Acute respiratory failure with hypercapnia Status: Acute (6) Chronic diastolic CHF (congestive heart failure), NYHA class 1: Status: Acute (7) Chronic anticoagulation: Status: Acute (8) Primary osteoarthritis involving multiple joints: Status: Acute Plan Significant right knee osteoarthritis. He should follow up in my office in about 3 weeks or so. He needs his cardiac status well stabilized incomplete cardiac clearance prior to consideration of any surgical intervention for his knee. His PCP is Dr. Roth. Quality VTE Deep Vein Thrombosis/Pulmonary Embolism Present on Admission: No
[2023-01-19] MEDS: WARFARIN 5 MG TABLET 2.5 MG PO (16:19)
--- NOTE | 2023-01-19 18:00 | PC.NURSE ---
1730 - Noted that over the last few hrs, RR has increased and noted to have increased crackles in the bases. Dr. Herman notified and pt assessed.
[2023-01-19] MEDS: FUROSEMIDE 20 MG/2 ML VIAL IV (18:11)
[2023-01-19] MEDS: OXYCODONE IR 5 MG TABLET PO (20:42)
[2023-01-20] VITALS (10 sets, daily range): BP systolic 120–147; BP diastolic 65–84; PULSE 67–80; RESP 24–34; TEMP 36.5–36.9; O2SAT 90–98
[2023-01-20] MEDS: ACETAMINOPHEN 325 MG TABLET 650 MG PO ×3 (01:51→16:23)
[2023-01-20] MEDS: CEFEPIME 2 GM in SODIUM CHLORIDE 0.9% 100 ML IV ×2 (03:45→16:21)
[2023-01-20] MEDS: PANTOPRAZOLE DR 40 MG TABLET PO (06:21)
[2023-01-20 06:46] LABS: INR 2.2 (0.9-1.3); Prothrombin Time 24.9 SECONDS (10.1-12.7)
--- NOTE | 2023-01-20 06:46 | PC.NURSE ---
Electrical And Radio Aircraft Mechanic Note-Patient dozed intermittently, restless and talking frequently while asleep, confused when awake. Has been on RA throughout the night, SpO2 >92%, RR mostly 20s, SR, did have 20 second run of VT, was sleeping at the time, rousable.
[2023-01-20 06:47] LABS: Add Manual Diff / Slide Review NO; Basophils Absolute Auto 0 /uL (0-100); Basophils Percent Auto 0.4 % (0-2); Eosinophils Absolute Auto 0 /uL (0-450); Eosinophils Percent Auto 0.5 % (2-4); Hematocrit 29.7 % (41-53); Hemoglobin 9.7 g/dL (13.5-17.5); Lymphocytes Absolute Auto 700 /uL (1100-4500); Lymphocytes Percent Auto 10.8 % (25-40); Mean Corpuscular HGB Conc 32.6 % (30-36); Mean Corpuscular Hemoglobin 27.8 PG (26-34); Mean Corpuscular Volume 85.2 fL (80-100); Monocytes Absolute Auto 900 /uL (0-900); Monocytes Percent Auto 13.4 % (3-14); Neutrophils Absolute Auto 4800 /uL (1500-7000); Neutrophils Percent Auto 74.9 % (50-75); Platelet Count 137 X10^3/uL (150-400); Red Blood Cell Count 3.48 X10^6/uL (4.5-5.9); Red Cell Distribution Width 15.2 % (11.6-14.8); White Blood Cell Count 6.4 X10^3/uL (4.5-11.0)
[2023-01-20 06:56] LABS: Alanine Aminotransferase 20 IU/L (<50); Albumin 3.3 g/dL (3.5-5.0); Albumin Globulin Ratio 1.1 (1.0-2.8); Alkaline Phosphatase 73 U/L (38-126); Aspartate Aminotransferase 27 IU/L (17-59); BUN Creatinine Ratio 32.9 (6-22); Bilirubin Total 0.8 mg/dL (0.2-1.3); Blood Urea Nitrogen 24 mg/dL (9-20); Calcium 8.8 mg/dL (8.4-10.2); Chloride 87 mmol/L (98-107); Estimated Glomerular Filt Rate > 60 mL/min (>60); Globulin 2.9 g/dL (1.7-4.1); Glucose 113 mg/dL (80-110); HEMOLYSIS < 15 (0-50); Potassium 4.1 mmol/L (3.4-5.1); Sodium 132 mmol/L (137-145); Total Protein 6.2 g/dL (6.3-8.2)
[2023-01-20 07:03] LABS: NT-proBNP (BNP-Adult 18+) 6090 pg/mL (<450)
[2023-01-20 07:14] LABS: Carbon Dioxide 41 mmol/L (22-32)
[2023-01-20] MEDS: FUROSEMIDE 20 MG/2 ML VIAL IV ×2 (08:00→19:20)
[2023-01-20] MEDS: FUROSEMIDE 40 MG TABLET PO ×2 (08:01→16:21)
[2023-01-20] MEDS: carvediloL 12.5 MG TABLET PO ×2 (08:01→20:40)
[2023-01-20] MEDS: SODIUM CHLORIDE 0.9% FLUSH 10 ML IV ×2 (08:02→20:40)
[2023-01-20] MEDS: DICLOFENAC 1% GEL 100 GM 1 APPLIC TOP (08:04)
[2023-01-20] MEDS: MESALAMINE 400 MG CAP.DRTAB. 800 MG PO ×2 (08:04→20:40)
[2023-01-20] MEDS: LIDOCAINE PATCH 1 EACH ADH..PATCH TOP (08:04)
[2023-01-20] MEDS: predniSONE 20 MG TABLET 30 MG PO (08:05)
[2023-01-20] MEDS: TAMSULOSIN 0.4 MG CAPSULE PO (08:06)
[2023-01-20 10:36] LABS: pH ABG 7.42 (7.35-7.45)
[2023-01-20 10:37] LABS: PCO2 ABG 64.4 mmHg (35-45)
[2023-01-20 10:38] LABS: Fractionated Inspired Oxygen 21; HCO3 ABG 42 mmol/L (23-27); Oxygen Saturation ABG 91 % (95-100); PO2 ABG 63 mmHg (80-100); TCO2 ABG 43 mmol/L (23-27)
[2023-01-20] MEDS: NALOXONE 0.4 MG/ML VIAL 0.2 MG IV (10:40)
--- NOTE | 2023-01-20 12:07 | DI.RAD.S_ITS ---
PROCEDURE: XR CHEST 1V INDICATIONS: respiratory distress TECHNIQUE: One view of the chest was acquired. COMPARISON: [facility], CR, XR CHEST 1V, 01/16/2023, 18:14. [facility], CR, XR CHEST 1V, 01/16/2023, 14:22. FINDINGS: Surgical changes and devices: Prosthetic valve and atrial appendage clip. Sternotomy. Lungs and pleura: Small effusions. Mediastinum: Mediastinal contours appear normal. Heart size is enlarged. Bones and chest wall: No suspicious bony lesions. Overlying soft tissues appear unremarkable. IMPRESSION: Small pleural effusions. Dictated by: Micah Parr M.D. on 01/20/2023 at 12:45 Approved by: Micah Parr M.D. on 01/20/2023 at 12:46
--- NOTE | 2023-01-20 13:53 | PT-IP ANOTE ---
Pt refused to work with PT twice this afternoon, he would like to rest in bed. Will check back in tomorrow.
--- NOTE | 2023-01-20 14:48 | P.PN_ITS ---
Subjective Subjective Interval history: Patient had increasing shallow breathing and tachypnea this morning. With increased BNP, increase diuresis was ordered. After 1200 mL of fluid released with diuresis, patient began to calm down and breathe more easily. Chest x-ray confirmed the was some pleural effusion bilaterally a small amount. Throughout this time the patient's O2 saturation was normal. There appears to be somewhat of an anxiety component with the breathing issues. Once he has a sensation of dyspnea he begins to breathe more shallow and more rapidly. We will initiate Dilaudid 0.25 mg IV q.4h as needed dyspnea. Following the diuresis and the patient calming down, he states that he feels much better. Exam Vital Signs (past 8 hours): - 01/20/23 08:01 01/20/23 08:00 01/20/23 08:00 Temperature Pulse Rate 76 Respiratory Rate Blood Pressure 141/84 H Pulse Oximetry 90 L Oxygen Delivery Method Room Air Room Air 01/20/23 08:00 01/20/23 10:16 01/20/23 12:00 Temperature 97.9 F Pulse Rate 76 Respiratory Rate 34 H Blood Pressure 141/84 H Pulse Oximetry 90 L 93 Oxygen Delivery Method Room Air 01/20/23 12:21 Temperature 97.9 F Pulse Rate 71 Respiratory Rate 32 H Blood Pressure 140/74 Pulse Oximetry 93 Oxygen Delivery Method Fraction of Inspired Oxygen 26 Oxygen Delivery Method Room Air Oxygen Flow Rate 0 Narrative Exam Narrative: General:? Patient is a well-developed, elderly male in distress this morning prior to diuresis. HEENT:? Normocephalic, atraumatic, extraocular muscles intact Chest: Equal chest rise without nasal flaring, retractions, tachypneic or labored breathing. Crackles at bases. Lungs:? Auscultation of all lung [place] are clear except for crackles at bases. Cardio: irregular rate and rhythm normal S1 & S2 Abdomen: S NT ND Musculoskeletal:? Muscle strength and tone are equal, effusion right knee and associated pain. Improving pain level. Skin:? Warm dry and intact without rashes or lesions.? Neuro:? Alert and orientated x3, moves all extremities, sensation to touch intact Psych:? Patient has appropriate affect, mental status attitude thought context and judgment are appropriate for age Objective Labs 01/20/23 06:20 01/20/23 06:20 Labs: Laboratory Results - last 24 hr 01/20/23 01/20/23 01/20/23 06:20 06:20 06:20 WBC 6.4 RBC 3.48 L Hgb 9.7 L Hct 29.7 L MCV 85.2 MCH 27.8 MCHC 32.6 RDW 15.2 H Plt Count 137 L Neut % (Auto) 74.9 Lymph % (Auto) 10.8 L Dolores % (Auto) 13.4 Eos % (Auto) 0.5 L Baso % (Auto) 0.4 Neut # (Auto) 4800 Lymph # (Auto) 700 L Dolores # (Auto) 900 Eos # (Auto) 0 Baso # (Auto) 0 PT 24.9 H INR 2.2 H ABG pH ABG pCO2 ABG pO2 ABG HCO3 ABG Total CO2 ABG O2 Saturation ABG Base Excess FiO2 Sodium Potassium Chloride Carbon Dioxide BUN Creatinine Estimated GFR BUN/Creatinine Ratio Glucose Calcium Total Bilirubin AST ALT Alkaline Phosphatase NT-Pro-B Natriuret Pep 6090 H Total Protein Albumin Globulin Albumin/Globulin Ratio 01/20/23 01/20/23 06:20 10:28 WBC RBC Hgb Hct MCV MCH MCHC RDW Plt Count Neut % (Auto) Lymph % (Auto) Dolores % (Auto) Eos % (Auto) Baso % (Auto) Neut # (Auto) Lymph # (Auto) Dolores # (Auto) Eos # (Auto) Baso # (Auto) PT INR ABG pH 7.42 ABG pCO2 64.4 H* ABG pO2 63 L ABG HCO3 42 H ABG Total CO2 43 H ABG O2 Saturation 91 L ABG Base Excess 17.0 H FiO2 21 Sodium 132 L Potassium 4.1 Chloride 87 L Carbon Dioxide 41 H* BUN 24 H Creatinine 0.73 Estimated GFR > 60 BUN/Creatinine Ratio 32.9 H Glucose 113 H Calcium 8.8 Total Bilirubin 0.8 AST 27 ALT 20 Alkaline Phosphatase 73 NT-Pro-B Natriuret Pep Total Protein 6.2 L Albumin 3.3 L Globulin 2.9 Albumin/Globulin Ratio 1.1 PFSH Medical History Asthma BPH w urinary obs/LUTS Chicken pox Chronic anticoagulation Chronic atrial fibrillation Chronic diastolic CHF (congestive heart failure), NYHA class 1 Colon polyps Coronary artery disease Crohn's disease Diverticular disease Easy bruisability Essential hypertension Fractures Hearing loss Hemorrhoid History of colonic polyps History of urinary incontinence (~2018) Measles Mixed hyperlipidemia Mumps Myocardial infarction Obesity Osteoarthritis Positive PPD Primary osteoarthritis involving multiple joints Pulmonary hypertension Right inguinal hernia Tinnitus Vision disorder Surgical History Anesthesia H/O mitral valve replacement (~03/2017) Hx of heart artery stent (~1994) Family History Mother Congestive heart failure Father Coronary artery disease Social History household members: spouse Smoking Status: Never smoker substance use type: does not use Type(s) of exercise: walking frequency: daily Assessment & Plan Assessment & Plan narrative: #Acute hypoxemic and hypercapnic respiratory failure secondary due to diastolic heart failure with acute metabolic encephalopathy -this has currently initially stabilized but some crackles at bases today ?- no known COPD history, but does have pulmonary HTN noted on prior echo with severe TR noted in late 2021. Likely secondary to space ventilation. ?- echo with EF of 65-70%, but interventricular septum is flat consistent with volume overload. He has R heart failure as well. RVSP is 66, though prior TTE scanned into the computer was noted to be in the 80s. ?- Diuresed well initially with 60 mg IV lasix BID but now with contraction alkalosis so stopped. He takes metolazone and torsemide 2.5, 100 mg per cardiology outpatient notes. His compliance was questioned with prior cardiology documentation. ?- restarted eplerenone. And further diuresis with furosemide has been reinitiated. Assess daily to see if change in dose is needed ?- teleICU consult is much appreciated however they have signed off. ?- PICC placement done given high probability initially for decompensation. ?- it is unclear if patient has had pulmonary hypertension evaluation, presumed he has as he follows with cardiology. No prior CTA seen to evaluate for pulmonary emboli, but might be better to perform V/Q scan. This will not likely change acute management given patient being bridged with lovenox and takes coumadin.? Lovenox stopped on today (01/19) with INR 2.2. On Coumadin only. ? #UTI, acute, due to pseudomonas, present on admission ?--was admitted previously for UTI, prior cultures did not grow pseudomonas however urine culture from last admit grew pseudomonas. ?-Changed antibiotics to cefepime. Organism sensitive to fluroquinolones but ordered cefepime 2g q8 while admitted due to warfarin interactions. Antibiotics should finish tomorrow. #Atrial fibrillation, active, chronic/permanent, on chronic Coumadin, present on admission * INR goal 2-3, 1.4 on admit. Karin tinsley given discussion above, now completed bridging * coumadin per pharmacy and coreg to continue once meds reconciled #CAD, chronic, pulmonary hypertension, present on admission * Continue carvedilol, eplerenone #Acute on chronic Diastolic heart failure, with R heart failure,?with severe TR and pulmonary HTN * Last echo 06/27, EF 55% will repeat as noted above. RVSP 83 mmHg with right atrial pressure of 15 on echo. Repeat TTE as noted above#BPH, active, chronic, present on admission ?- BPH medications were held until improvement in BP, restarted yesterday (01/19) #Crohn's colitis disease/IBD, chronic, present on admission * Continue mesalamine #Hyperlipidemia, mixed, chronic, present on admission * continue simvastatin 20 mg #Pancytopenia, chronic * Continue ferrous sulfate to benefit hemoglobin #Osteoarthritis, with muscle spasms, chronic, present on admission * Continue Flexeril #GERD, chronic, present on admission * Continue PPI ?#Obesity, moderate, acute on chronic, present on admission * As evidence by BMI 37 * dietary consult ordered regarding nutritional education and information for dietary, lifestyle, exercise, and weight changes. * the patient is at much higher risk for medical and surgical complications due to obesity as it relates to chronic illnesses:, and acute illness.? The patient's obesity increases the difficulty and complexity of medical and/or surgical interventions, management and increases the chances of poor outcome such as morbidity and mortality as well as impaired wound healing. # right knee effusion and pain, acute on chronic ?? -previous history of previous injections to treat, apparently Dr. Levy has proposed total knee replacement ?? - consulted Dr. Valencia to assess for injection to help settled pain and effusion so patient can proceed with physical therapy and mobilization - discussed with Dr. Valencia and injections are not done in the hospital.? Therefore have prescribe prednisone 30 mg daily for 5 days to help settle inflam mation and pain.? Hopefully this will help with mobility.? Continue lidocaine patch applied to the knee daily.? Patient is slowly improving. # concern for DVT.? Doppler ruled out DVT. Code status:Full Surrogate decision maker:? Italia Medeiros DVT/VTE prophylaxis:? Coumadin therapeutic, discontinued bridging with Lovenox Quality VTE Deep Vein Thrombosis/Pulmonary Embolism Present on Admission: No
--- NOTE | 2023-01-20 16:13 | CM.DPC ---
DCP Continued: MEDICAL VOUCHER CLERK reviewed chart. Per provider in rounds, patient will likely be here for another 3-4 days. MEDICAL VOUCHER CLERK spoke with Crystal at [facility]. Crystal reports concern for med Mesalamine. Crystal states his dose would need to be the same as it is here at the hospital and not his home med dose. MARY JANE Acosta called MEDICAL VOUCHER CLERK. Had a lengthy conversation regarding her concerns for his d/c. Due to patient not at this time providing verbal consent to speak with Karla, MEDICAL VOUCHER CLERK listened to concerns and educated Karla on insurance/legal/ethical questions. MEDICAL VOUCHER CLERK informed MARY JANE Acosta that as long as patient's are decisional, their d/c plan and usp placement is up to their choice. Karla expressed concern but understanding. MARY JANE requested more information for private pay caregivers. MEDICAL VOUCHER CLERK agreed to leave senior resources booklet at nurses station for when family arrives. MEDICAL VOUCHER CLERK entered room and introduced self and role. Patient was sitting up and appeared A/Ox4. Patient reported he is still open to [facility] and that he was told probably not for a few more days. Plan: patient will d/c to [facility] when medically stable. CM team will continue to follow closely. CM team will continue to provide resources as necessary. STEVE Garcia
[2023-01-20] MEDS: WARFARIN 5 MG TABLET PO (16:22)
[2023-01-20 17:44] LABS: HEMOLYSIS < 15 (0-50); Potassium 3.7 mmol/L (3.4-5.1)
[2023-01-20 18:01] LABS: BUN Creatinine Ratio 33.8 (6-22); Blood Urea Nitrogen 24 mg/dL (9-20); Calcium 8.6 mg/dL (8.4-10.2); Chloride 86 mmol/L (98-107); Estimated Glomerular Filt Rate > 60 mL/min (>60); Glucose 140 mg/dL (80-110); Potassium 3.7 mmol/L (3.4-5.1); Sodium 132 mmol/L (137-145)
[2023-01-20 18:11] LABS: HEMOLYSIS < 15 (0-50); NT-proBNP (BNP-Adult 18+) 6520 pg/mL (<450)
[2023-01-20 18:36] LABS: Carbon Dioxide 39 mmol/L (22-32)
[2023-01-20] MEDS: POTASSIUM CHLORIDE 20 MEQ TAB 40 MEQ PO (19:19)
[2023-01-21] VITALS (7 sets, daily range): BP systolic 96–117; BP diastolic 50–63; PULSE 68–79; RESP 20–28; TEMP 36.6–37; O2SAT 90–98
[2023-01-21] MEDS: CEFEPIME 2 GM in SODIUM CHLORIDE 0.9% 100 ML IV (04:07)
[2023-01-21] MEDS: ACETAMINOPHEN 325 MG TABLET 650 MG PO (05:13)
[2023-01-21 06:42] LABS: INR 2.8 (0.9-1.3); Prothrombin Time 32.7 SECONDS (10.1-12.7)
[2023-01-21 06:45] LABS: Add Manual Diff / Slide Review NO; Basophils Absolute Auto 0 /uL (0-100); Basophils Percent Auto 0.5 % (0-2); Eosinophils Absolute Auto 0 /uL (0-450); Eosinophils Percent Auto 0.8 % (2-4); Hematocrit 29.1 % (41-53); Hemoglobin 9.2 g/dL (13.5-17.5); Lymphocytes Absolute Auto 500 /uL (1100-4500); Lymphocytes Percent Auto 12.7 % (25-40); Mean Corpuscular HGB Conc 31.8 % (30-36); Mean Corpuscular Hemoglobin 27.2 PG (26-34); Mean Corpuscular Volume 85.7 fL (80-100); Monocytes Absolute Auto 700 /uL (0-900); Monocytes Percent Auto 15.6 % (3-14); Neutrophils Absolute Auto 3000 /uL (1500-7000); Neutrophils Percent Auto 70.4 % (50-75); Platelet Count 109 X10^3/uL (150-400); Red Blood Cell Count 3.39 X10^6/uL (4.5-5.9); Red Cell Distribution Width 15.6 % (11.6-14.8); White Blood Cell Count 4.2 X10^3/uL (4.5-11.0)
[2023-01-21 06:53] LABS: BUN Creatinine Ratio 34.2 (6-22); Blood Urea Nitrogen 25 mg/dL (9-20); Calcium 8.2 mg/dL (8.4-10.2); Chloride 88 mmol/L (98-107); Estimated Glomerular Filt Rate > 60 mL/min (>60); Glucose 90 mg/dL (80-110); HEMOLYSIS < 15 (0-50); Potassium 3.8 mmol/L (3.4-5.1); Sodium 134 mmol/L (137-145)
[2023-01-21 06:59] LABS: NT-proBNP (BNP-Adult 18+) 6020 pg/mL (<450)
[2023-01-21 07:04] LABS: Carbon Dioxide 45 mmol/L (22-32)
[2023-01-21] MEDS: PANTOPRAZOLE DR 40 MG TABLET PO (09:46)
[2023-01-21] MEDS: FUROSEMIDE 60 MG in SODIUM CHLORIDE 0.9% 50 ML 112 MG IV (09:47)
[2023-01-21] MEDS: POTASSIUM CHLORIDE 20 MEQ TAB 40 MEQ PO (09:49)
[2023-01-21] MEDS: predniSONE 20 MG TABLET 30 MG PO (09:50)
[2023-01-21] MEDS: LIDOCAINE PATCH 1 EACH ADH..PATCH TOP (09:50)
[2023-01-21] MEDS: MESALAMINE 400 MG CAP.DRTAB. 800 MG PO (09:50)
[2023-01-21] MEDS: TAMSULOSIN 0.4 MG CAPSULE PO (09:51)
[2023-01-21] MEDS: SODIUM CHLORIDE 0.9% FLUSH 10 ML IV (09:51)
[2023-01-21] MEDS: DICLOFENAC 1% GEL 100 GM 1 APPLIC TOP (09:52)
[2023-01-21] MEDS: acetaZOLAMIDE 250 MG TABLET 500 MG PO (11:18)
--- NOTE | 2023-01-21 11:32 | P.DS_ITS ---
History of Present Illness History of Present Illness Date Patient Seen: 01/16/23 Time Patient Seen: 14:39 Chief complaint: GLF Narrative: Tramaine Powell is an 82 year old Male with a past medical history AVNRT post ablation, pulmonary HTN, TIA, permanent chronic AFib on Coumadin, atrial clip, diastolic CHF, OA, CAD, BPH, chronic anemia, HDL, Crohn's colitis, GERD, and peripheral edema who was just recently here for an episode of weakness, thought to be secondary to UTI and possible diastolic heart failure who presented to the emergency room yesterday after having continued weakness with fall at home. He denied any other symptoms prior to arrival including abdominal pain, dysuria, urinary frequency, palpitations, fever, nausea or vomiting. He reports taking his augmentin at home. Home health was unable to assess the patient, and reported difficulty scheduling with the patient per discussions with care management staff here. He was to have physical therapy evaluation in the ER with possible placement. He states he took his home medications prior to arrival yesterday. This morning he began to feel a bit short of breath. When working with PT his O2 saturations dropped to the mid 70s. Overnight he is reported to have been on 0 to 1 L of oxygen via NC. With hypoxia, patient was placed on 2L O2, CT chest yesterday showed No definite acute disease.? Very small bilateral pleural effusions and mild cardiomegaly are noted.? No pneumonia found. He was given a single dose of furosemide 20 mg IV early this morning, but no other medications had been given until desaturations. He takes torsemide 100 mg daily at home along with metolazone 2.5 mg daily per outpatient cardiology notes. ABG was ordered which showed acidosis with hypercapnea with PCO2 of 76. He was given 40 mg IV furosemide, with worsening of hypercapnea. He was then placed on BiPAP and admitted to the ICU for further management. Other than slight increase in proBNP, laboratory evaluation was unremarkable. I ordered chest xray after arrival to the ICU. Discharge Providers Provider Date of admission: 01/16/23 13:47 Discharge Date: 01/21/23 Primary care physician: Barrera Roth MD Consults: 01/16/23 01:13 Consult to WHARF HAND - Tool Design Engineer Stat Comment: Consult to Physical Therapy Evaluate & Treat Comment: Physician Instructions: Evaluate and Treat 01/16/23 15:03 Consult to Dietitian, Adult Routine Comment: Reason For Exam: heart failure 01/16/23 16:08 Consult to Tele-director of pediatric rehabilitation Routine Comment: Consulting Provider: Kimani Tele-intensivists Reason for consultation: Creative Writing Teacher services 01/18/23 11:47 Consult to Physician Routine Comment: Consulting Provider: Lindy Johnson Reason for consultation: Patient with effusion/pain right knee assess for injection, pt of Dr. Levy Has provider been notified: No Discharge provider: Luis Manuel Adam DO Summary Hospital Course Discharge Diagnosis: #Acute hypoxemic and hypercapnic respiratory failure secondary due to diastolic heart failure with acute metabolic encephalopathy -this has currently initially stabilized but some crackles at bases today ?- no known COPD history, but does have pulmonary HTN noted on prior echo with severe TR noted in late 2021. Likely secondary to space ventilation. ?- echo with EF of 65-70%, but interventricular septum is flat consistent with volume overload. He has R heart failure as well. RVSP is 66, though prior TTE scanned into the computer was noted to be in the 80s. ?- Diuresed well initially with 60 mg IV lasix BID but now with contraction alkalosis so stopped. He takes metolazone and torsemide 2.5, 100 mg per cardiology outpatient notes. His compliance was questioned with prior cardiology documentation. ?- restarted eplerenone.? And further diuresis with furosemide has been reinitiated.? Assess daily to see if change in dose is needed ?- teleICU consulted initially for Bipap but this has now been weaned off ? #UTI, acute, due to pseudomonas, present on admission ?--was admitted previously for UTI, prior cultures did not grow pseudomonas however urine culture from last admit grew pseudomonas. ?-Changed antibiotics to cefepime. Organism sensitive to fluroquinolones but ordered cefepime 2g q8 while admitted due to warfarin interactions.? Finished course of abx on 01/21. #Atrial fibrillation, active, chronic/permanent, on chronic Coumadin, present on admission * INR goal 2-3, 1.4 on admit. Briding lovenox given discussion above, now completed bridging * coumadin per pharmacy and coreg continued #CAD, chronic, pulmonary hypertension, present on admission * Continue carvedilol, eplerenone #Acute on chronic Diastolic heart failure, with R heart failure,?with severe TR and pulmonary HTN * Last echo 06/27, EF 55% will repeat as noted above. RVSP 83 mmHg with right atrial pressure of 15 on echo. Repeat TTE as noted above#BPH, active, chronic, present on admission?-? BPH medications were held until improvement in BP, restarted yesterday (01/19) #Crohn's colitis disease/IBD, chronic, present on admission * Continue mesalamine at 800mg BID as this is on our formulary (ok for SNF to give 800mg BID dose while in rehab if 1g BID not available) #Hyperlipidemia, mixed, chronic, present on admission * continue simvastatin 20 mg #Pancytopenia, chronic * Continue ferrous sulfate to benefit hemoglobin #Osteoarthritis, with muscle spasms, chronic, present on admission * Continue Flexeril #GERD, chronic, present on admission * Continue PPI ?#Obesity, moderate, acute on chronic, present on admission * As evidence by BMI 37 * dietary consult ordered regarding nutritional education and information for dietary, lifestyle, exercise, and weight changes. * the patient is at much higher risk for medical and surgical complications due to obesity as it relates to chronic illnesses:, and acute illness.? The patient's obesity increases the difficulty and complexity of medical and/or surgical interventions, management and increases the chances of poor outcome such as morbidity and mortality as well as impaired wound healing. # right knee effusion and pain, acute on chronic ?? -previous history of previous injections to treat, apparently Dr. Levy has proposed total knee replacement ?? - consulted Dr. Valencia to assess for injection to help settled pain and effusion so patient can proceed with physical therapy and mobilization - discussed with Dr. Valencia and injections are not done in the hospital.? Therefore have prescribe prednisone 30 mg daily for 5 days to help settle inflammation and pain.? Hopefully this will help with mobility.? Continue lidocaine patch applied to the knee daily.? Patient is slowly improving. # concern for DVT.? Doppler ruled out DVT. Hospital Course: 82 M admitted with hypercapnic respiratory failure, likely due to volume overload in the setting of chronic severe pulmonary HTN. Initially required Bipap due to hypercarbia but his PCO2 is much improved. He worked with therapy and rec SNF. Received IV lasix 60mg BID which was then stopped due to worsening bicarb concerning for contraction alkalosis. Restarted eplerenone. Patient feels quite well today, much improved weakness and denies shortness of breath, chest pain, or abdominal pain. Dc to SNF on his usual torsemide 100mg daily and metolazone 2.5mg daily. Time Spent with Patient Time spent: Greater than 30 minutes Exam Vital Signs (past 8 hours): - 01/21/23 04:00 01/21/23 04:00 01/21/23 08:41 Temperature 98.0 F 98 F Pulse Rate 71 71 Respiratory Rate 24 26 H Blood Pressure 117/63 102/59 L Pulse Oximetry 97 97 96 Oxygen Delivery Method Nasal Cannula Oxygen Flow Rate 1 1 2 01/21/23 09:54 01/21/23 08:00 01/21/23 08:00 Temperature Pulse Rate 79 Respiratory Rate Blood Pressure 96/50 L Pulse Oximetry 97 Oxygen Delivery Method Room Air Nasal Cannula Oxygen Flow Rate 1 01/21/23 08:00 Temperature Pulse Rate Respiratory Rate 20 Blood Pressure 96/50 L Pulse Oximetry 97 Oxygen Delivery Method Oxygen Flow Rate 1 Fraction of Inspired Oxygen 24 SaO2/FiO2 Ratio 400 Oxygen Delivery Method Nasal Cannula Oxygen Flow Rate 2 Narrative Exam Narrative: General:? Patient is a well-developed, elderly male in distress this morning prior to diuresis. HEENT:? Normocephalic, atraumatic, extraocular muscles intact Chest: Equal chest rise without nasal flaring, retractions, tachypneic or labored breathing. Crackles at bases. Lungs:? Auscultation of all lung villela are clear except for crackles at bases. Cardio: irregular rate and rhythm normal S1 & S2 Abdomen: S NT ND Musculoskeletal:? Muscle strength and tone are equal, effusion right knee and associated pain. Improving pain level. Skin:? Warm dry and intact without rashes or lesions.? Neuro:? Alert and orientated x3, moves all extremities, sensation to touch intact Psych:? Patient has appropriate affect, mental status attitude thought context and judgment are appropriate for age Objective Labs 01/21/23 05:59 01/21/23 05:59 Labs: Laboratory Results - last 24 hr 01/20/23 01/20/23 01/21/23 17:24 17:24 05:59 WBC 4.2 L RBC 3.39 L Hgb 9.2 L Hct 29.1 L MCV 85.7 MCH 27.2 MCHC 31.8 RDW 15.6 H Plt Count 109 L Neut % (Auto) 70.4 Lymph % (Auto) 12.7 L Warrick % (Auto) 15.6 H Eos % (Auto) 0.8 L Baso % (Auto) 0.5 Neut # (Auto) 3000 Lymph # (Auto) 500 L Warrick # (Auto) 700 Eos # (Auto) 0 Baso # (Auto) 0 PT INR Sodium 132 L Potassium 3.7 3.7 Chloride 86 L Carbon Dioxide 39 H BUN 24 H Creatinine 0.71 Estimated GFR > 60 BUN/Creatinine Ratio 33.8 H Glucose 140 H Calcium 8.6 NT-Pro-B Natriuret Pep 6520 H 01/21/23 01/21/23 05:59 05:59 WBC RBC Hgb Hct MCV MCH MCHC RDW Plt Count Neut % (Auto) Lymph % (Auto) Warrick % (Auto) Eos % (Auto) Baso % (Auto) Neut # (Auto) Lymph # (Auto) Warrick # (Auto) Eos # (Auto) Baso # (Auto) PT 32.7 H D INR 2.8 H Sodium 134 L Potassium 3.8 Chloride 88 L Carbon Dioxide 45 H* BUN 25 H Creatinine 0.73 Estimated GFR > 60 BUN/Creatinine Ratio 34.2 H Glucose 90 Calcium 8.2 L NT-Pro-B Natriuret Pep 6020 H PFS Medical History Asthma BPH w urinary obs/LUTS Chicken pox Chronic anticoagulation Chronic atrial fibrillation Chronic diastolic CHF (congestive heart failure), NYHA class 1 Colon polyps Coronary artery disease Crohn's disease Diverticular disease Easy bruisability Essential hypertension Fractures Hearing loss Hemorrhoid History of colonic polyps History of urinary incontinence (~2018) Measles Mixed hyperlipidemia Mumps Myocardial infarction Obesity Osteoarthritis Positive PPD Primary osteoarthritis involving multiple joints Pulmonary hypertension Right inguinal hernia Tinnitus Vision disorder Surgical History Anesthesia H/O mitral valve replacement (~03/2017) Hx of heart artery stent (~1994) Family History Mother Congestive heart failure Father Coronary artery disease Social History household members: spouse Smoking Status: Never smoker substance use type: does not use Type(s) of exercise: walking frequency: daily Discharge Plan Discharge Plan Patient Disposition: SNF Transfer to: [facility] Discharge orders & Medications Prescriptions: Continued albuterol sulfate [Proventil HFA] 90 MCG/PUFF HFA aerosol inhaler 2 puff INH PRN PRN (Reason: Shortness Of Breath) Qty: 0 mesalamine [Pentasa] 500 MG capsule, extended release 1,000 mg PO BID Qty: 0 calcium carbonate-vitamin D3 500 mg-2.5 mcg (100 unit) Tablet,Chewable 3 tab PO DAILY Qty: 0 warfarin 5 mg tablet See Rx Instructions .ROUTE .COMPLEX Qty: 90 3RF Rx Instructions: 5mg MWF and 2.5mg all other days, or as directed. simvastatin 40 mg tablet 20 mg PO BEDTIME tamsulosin 0.4 mg capsule 0.4 mg PO DAILY fluticasone propionate 50 mcg/actuation spray,suspension 1 spray intranasal DAILY PRN (Reason: allergy symptoms) acetaminophen 325 mg tablet 650 mg PO Q4H PRN (Reason: Pain) alfuzosin 10 mg tablet extended release 24 hr 10 mg PO DAILY Rx Instructions: administer after the same meal each day ascorbic acid (vitamin C) 500 mg tablet 500 mg PO DAILY metolazone 2.5 mg tablet 2.5 mg PO DAILY omeprazole 20 mg tablet,delayed release (DR/EC) 20 mg PO DAILY [id number] Ointment 1 ea topical DAILY PRN (Reason: Skin Irritation) ferrous sulfate 325 mg (65 mg iron) Tablet 325 mg PO BID nitroglycerin [Nitrostat] 0.4 mg Tablet, Sublingual 0.4 mg SUBLINGUAL Q5-15M PRN (Reason: Chest Pain) folic acid 1 mg Tablet 1 mg PO DAILY finasteride 5 mg Tablet 5 mg PO DAILY loratadine 10 mg Tablet 10 mg PO DAILY aspirin 81 MG tablet,delayed release (DR/EC) 81 mg PO DAILY torsemide 100 mg Tablet 100 mg PO DAILY eplerenone 50 mg Tablet 50 mg PO DAILY isosorbide mononitrate 60 mg Tablet Extended Release 24 Hr 60 mg PO DAILY potassium chloride 20 mEq Tablet Extended Release 20 meq PO TID carvedilol 12.5 mg Tablet 12.5 mg PO BID Rx Instructions: must administer with a meal/food amoxicillin-pot clavulanate 875-125 mg tablet 1 tab PO BID 5 Days Qty: 10 0RF Follow up/Referrals: Barrera Roth MD [Primary Care Provider] - 2 Weeks Visit Report/Discharge Packet Stand Alone Forms: Patient Portal/API Discharge Data Primary Care Provider: Barrera Roth V Quality VTE Deep Vein Thrombosis/Pulmonary Embolism Present on Admission: No
--- NOTE | 2023-01-21 14:11 | CM.DPC ---
DCP Continued: PROCESSING ENGINEER reviewed EMR. Per provider, patient able to d[facility]c to [facility] today. PROCESSING ENGINEER reported [facility] concerns with medication Mesalamine to provider. From December, they can accept patient at 1300 today. PROCESSING ENGINEER updated patient on d/c timing and he is in verbal agreement. PROCESSING ENGINEER encouraged patient to contact his family and let them know the d/c plan. Patient in agreement. PROCESSING ENGINEER updated provider, nursing staff, and LEARNING DESIGN SPECIALIST of d/c time. PROCESSING ENGINEER gave nurse report number to nursing staff. PROCESSING ENGINEER gave CM Assistant Yancy MURILLO. CM Health Practice Manager Yancy faxed d/c summary, order, signed med list, and other final information to [facility]. CM Assistant Haines placed signed med list in d/c paperwork. Plan: patient will d/c to [facility] today at 1300 via wheelchair transport. CM team will continue to follow closely. STEVE Garcia
== END 2023-01-21 13:25 | DRG 291 ==
LOC: ED 01-16 00:17 → AC 01-16 13:49 → ICU 01-16 13:54
PROVIDERS: Internal Medicine; Internal Medicine Critical Care Medicine; Neuromusculoskeletal Medicine, Sports Medicine; Admitting Provider Internal Medicine; Emergency Provider Emergency Medicine; PCP Internal Medicine; Referring Provider Emergency Medicine; Visit Provider Internal Medicine
DX: I11.0 Hypertensive heart disease with heart failure (principal); G93.41 Metabolic encephalopathy; I50.33 Acute on chronic diastolic (congestive) heart failure; J96.01 Acute respiratory failure with hypoxia; J96.02 Acute respiratory failure with hypercapnia; N39.0 Urinary tract infection, site not specified; I48.21 Permanent atrial fibrillation; K50.90 Crohn's disease, unspecified, without complications; D61.818 Other pancytopenia; I25.10 Atherosclerotic heart disease of native coronary artery without angina pectoris; I27.20 Pulmonary hypertension, unspecified; N40.0 Benign prostatic hyperplasia without lower urinary tract symptoms; E78.2 Mixed hyperlipidemia; K21.9 Gastro-esophageal reflux disease without esophagitis; E66.9 Obesity, unspecified; M17.11 Unilateral primary osteoarthritis, right knee; J45.909 Unspecified asthma, uncomplicated; Z79.01 Long term (current) use of anticoagulants; Z68.37 Body mass index [BMI] 37.0-37.9, adult
CPT/HCPCS: 36415; 36569; 36592; 36600; 70450; 71045; 71250; 80048; 80053; 81001; 82550; 82805; 83605; 83735; 83880; 84132; 84484; 85025; 85610; 87797; 93005; 93306; 93971; 94660; 94760; 96374; 96376; 97110; 97116; 97163; 97530; 99232; 99284; 99291; 99292; J0692; J1650; J1940; J2310; J3475

== ENCOUNTER → 2023-02-25 15:46 | Outpatient (CLI) | payer MEDICARE, OTHER, SELFPAY ==
[2023-01-16 13:51] VITALS: BMI 33.8
[2023-01-17 02:34] VITALS: PULSE 75; RESP 37; O2SAT 94
[2023-02-25 16:44] LABS: Hematocrit 28.5 % (41-53); Hemoglobin 9.5 g/dL (13.5-17.5); Mean Corpuscular HGB Conc 33.3 % (30-36); Mean Corpuscular Hemoglobin 27.6 PG (26-34); Mean Corpuscular Volume 82.9 fL (80-100); Platelet Count 165 X10^3/uL (150-400); Red Blood Cell Count 3.43 X10^6/uL (4.5-5.9); Red Cell Distribution Width 16.9 % (11.6-14.8); White Blood Cell Count 7.4 X10^3/uL (4.5-11.0)
[2023-02-25 17:15] LABS: Appearance Urine UA CLEAR; Bilirubin Urine UA NEGATIVE (NEGATIVE); Color Urine UA YELLOW; Glucose Urine UA NEGATIVE (Negative); Ketones Urine UA NEGATIVE (NEGATIVE); Leukocyte Esterase Urine UA 1+ (NEGATIVE); Nitrite Urine UA NEGATIVE (Negative); Occult Blood Urine UA NEGATIVE (Negative); Protein Urine UA NEGATIVE (Negative); Urobilinogen Urine UA 0.2 E.U./dL (0.2)
[2023-02-25 17:18] LABS: INR 2.3 (0.9-1.3); Prothrombin Time 26.7 SECONDS (10.1-12.7)
[2023-02-25 17:27] LABS: Alanine Aminotransferase 17 IU/L (<50); Albumin 4.1 g/dL (3.5-5.0); Albumin Globulin Ratio 1.4 (1.0-2.8); Alkaline Phosphatase 77 U/L (38-126); Aspartate Aminotransferase 33 IU/L (17-59); BUN Creatinine Ratio 72.1 (6-22); Bilirubin Total 1.1 mg/dL (0.2-1.3); Blood Urea Nitrogen 62 mg/dL (9-20); Calcium 9.2 mg/dL (8.4-10.2); Chloride 79 mmol/L (98-107); Estimated Glomerular Filt Rate > 60 mL/min (>60); Glucose 91 mg/dL (80-110); HEMOLYSIS < 15 (0-50); Potassium 2.8 mmol/L (3.4-5.1); Sodium 127 mmol/L (137-145); Total Protein 7.1 g/dL (6.3-8.2)
[2023-02-25 17:54] LABS: TSH w/ Reflex to FT4 0.43 uIU/mL (0.47-4.68)
[2023-02-25 18:11] LABS: Bacteria Urine Few (2-10); Culture Indicated Urine Specimen Cultured; RBC Urine None Seen (0-5/HPF); Squamous Epithelial Cell Urine 0-1 /HPF (0-5/HPF); WBC Urine 5-10/HPF (0-5/HPF); White Blood Cell Casts Urine 0-1/LPF
[2023-02-25 18:34] LABS: Carbon Dioxide 41 mmol/L (22-32)
[2023-02-25 20:46] LABS: Free T4, Direct Thyroxine 1.99 ng/dL (0.78-2.19)
== END ==
PROVIDERS: PCP Internal Medicine; Referring Provider Internal Medicine; Visit Provider Internal Medicine
DX: I25.10 Atherosclerotic heart disease of native coronary artery without angina pectoris (principal); I48.20 Chronic atrial fibrillation, unspecified; N39.0 Urinary tract infection, site not specified
CPT/HCPCS: 36415; 80053; 81001; 84439; 84443; 85027; 85610; 87077; 87086; 87147; 87186

== ENCOUNTER → 2023-03-05 13:31 | Outpatient (CLI) | payer MEDICARE, OTHER, SELFPAY ==
[2023-01-16 13:51] VITALS: BMI 33.8
[2023-01-17 02:34] VITALS: PULSE 75; RESP 37; O2SAT 94
[2023-03-05 15:30] LABS: HEMOLYSIS < 15 (0-50)
[2023-03-05 15:50] LABS: Potassium 2.6 mmol/L (3.4-5.1)
== END ==
PROVIDERS: PCP Internal Medicine; Referring Provider Internal Medicine; Visit Provider Internal Medicine
DX: E87.6 Hypokalemia (principal)
CPT/HCPCS: 36415; 84132

== ENCOUNTER 2023-03-09 01:55 | Inpatient (IN) | payer MEDICARE, OTHER, SELFPAY ==
[2023-01-16 13:51] VITALS: BMI 33.8
[2023-01-17 02:34] VITALS: PULSE 75; RESP 37; O2SAT 94
[2023-03-09] VITALS (21 sets, daily range): BP systolic 74–131; BP diastolic 39–69; PULSE 53–98; RESP 14–35; TEMP 36.1–36.6; O2SAT 91–99; BMI 26.3
--- NOTE | 2023-03-09 02:05 | ED_ITS ---
HPI - Fall General Chief Complaint: Fall Stated Complaint: Back Pain Time Seen by Provider: 03/09/23 02:05 Source: patient Mode of arrival: EMS Limitations: no limitations History of Present Illness HPI Narrative: This is a very pleasant 82-year-old male with history of chronic atrial fibrillation, congestive heart failure, osteoarthritis who had a ground level fall in the shower. Patient states he just slipped and fell. He landed backwards. EMS came for lift assist. He has pain in his lower lumbar spine ru nning up and down. Patient states he can walk if he needed to but it is very uncomfortable. Denies any pelvic pain. He also states he hit his knee his right knee mildly painful but states he can move it does not think he broke anything. States his right knee supposed to have surgery because it is ?bone on bone? in his quite painful to move. He states it seems the right knee more swollen than typical. He denies any new numbness, tingling or weakness. No new loss of bowel or bladder control. Patient states he does use a condom catheter overnight normally. Patient states he does not normally take anything for pain. He defers anything stronger than Tylenol at this time. Patient states that he did not hit his head, he denies any neck pain, no chest pain or shortness of breath. No dizziness. No nausea or vomiting. No other GI or urinary symptoms. Related Data Home Medications Medication Instructions Recorded Confirmed albuterol sulfate 90 mcg/actuation 2 puff INH PRN PRN Shortness Of 03/22/17 02/25/23 aerosol inhaler (Proventil HFA) Breath ##0 mesalamine 500 mg capsule,extended 1,000 mg PO BID ##0 03/24/17 02/25/23 release (Pentasa) calcium carbonate 500 mg-vitamin 3 tab PO DAILY ##0 03/31/17 02/25/23 D3 2.5 mcg (100 unit) chewable tablet ferrous sulfate 325 mg (65 mg 325 mg PO BID 05/18/18 02/25/23 iron) tablet finasteride 5 mg tablet 5 mg PO DAILY 05/18/18 03/09/23 folic acid 1 mg tablet 1 mg PO DAILY 05/18/18 03/09/23 loratadine 10 mg tablet 10 mg PO DAILY 05/18/18 02/25/23 nitroglycerin 0.4 mg sublingual 0.4 mg sublingual Q5-15M PRN Chest 05/18/18 02/25/23 tablet (Nitrostat) Pain simvastatin 40 mg tablet 20 mg PO BEDTIME 12/07/21 03/09/23 fluticasone propionate 50 1 spray intranasal DAILY PRN 02/07/22 02/25/23 mcg/actuation nasal allergy symptoms spray,suspension acetaminophen 325 mg tablet 650 mg PO Q4H PRN Pain 04/24/22 02/25/23 alfuzosin 10 mg tablet,extended 10 mg PO DAILY 04/24/22 03/09/23 release 24 hr ascorbic acid (vitamin C) 500 mg 500 mg PO DAILY 04/24/22 02/25/23 tablet neomycin-polymyxin 1 ea topical DAILY PRN Skin 04/24/22 02/25/23 Y-vtbhmrmgya-ncvooungyhtjoc top Irritation ointment omeprazole 20 mg tablet,delayed 20 mg PO DAILY 04/24/22 02/25/23 release carvedilol 12.5 mg tablet 12.5 mg PO BID 01/13/23 03/09/23 isosorbide mononitrate 60 mg 60 mg PO DAILY 01/13/23 03/09/23 tablet,extended release 24 hr potassium chloride 20 mEq 20 meq PO TID 01/13/23 03/09/23 tablet,extended release Previous Rx's Medication Instructions Recorded metolazone 2.5 mg tablet 2.5 mg PO DAILY #90 tabs 02/25/23 warfarin 5 mg tablet See Rx Instructions .Route 02/25/23 .COMPLEX #90 tabs eplerenone 50 mg tablet 50 mg PO DAILY #90 tabs 03/04/23 tamsulosin 0.4 mg capsule 0.4 mg PO DAILY #90 caps 03/04/23 Allergies Allergy/AdvReac Type Severity Reaction Status Date / Time ibuprofen Allergy Mild NOT GOOD Verified 02/25/23 14:40 FOR STOMACH BLEEDING iodine Allergy Mild UNKNOWN Verified 02/25/23 14:40 Sulfa (Sulfonamide Allergy Mild BURNED A Verified 02/25/23 14:40 Antibiotics) HOLE THRU INTESTINES thallium-201 Allergy Mild BREAKS OUT Verified 02/25/23 14:40 IN BLOTCHES AND ITCHING terazosin Allergy Hypotension Verified 02/25/23 14:40 spironolactone AdvReac Verified 02/25/23 14:40 Review of Systems Review of Systems ROS Unobtainable: All systems reviewed & are unremarkable except as noted in HPI and below Patient History Medical History Asthma BPH w urinary obs/LUTS Chicken pox Chronic anticoagulation Chronic atrial fibrillation Chronic diastolic CHF (congestive heart failure), NYHA class 1 Colon polyps Coronary artery disease Crohn's disease Diverticular disease Easy bruisability Essential hypertension Fractures Hearing loss Hemorrhoid History of colonic polyps History of urinary incontinence (~2018) Measles Mixed hyperlipidemia Mumps Myocardial infarction Obesity Osteoarthritis Positive PPD Primary osteoarthritis involving multiple joints Pulmonary hypertension Right inguinal hernia Tinnitus Vision disorder Surgical History Anesthesia H/O mitral valve replacement (~03/2017) Hx of heart artery stent (~1994) Family History Mother Congestive heart failure Father Coronary artery disease Social History household members: spouse Smoking Status: Never smoker substance use type: does not use Type(s) of exercise: walking frequency: daily Smoking Status: Never smoker alcohol intake frequency: holidays/special occasions only Substance Use Type: does not use Exam Narrative Exam Narrative: GEN: Patient appears in mild distress. HEAD: No evidence of trauma, no raccoon/[place]le[place] sign. NECK: Nontender, painless range of motion, trachea midline Negative Nexus criteria, there is no midline line tenderness, distracting injury, altered mental status, neuro deficit, recent EtOH. EYES: PERRLA, EOMI ENT: External inspection normal, trachea is midline, TM's are normal no hemotypanum, Nares are clear, no septal hematoma, no dental or oral injury, airway is normal and with normal occlusion, No bony tenderness RESP: Chest is nontender and has symmetric movement, no ecchymosis, breath tiffanie nds are normal no crackles, wheezes or rales CVS: Heart sounds are normal, no murmur noted, No JVD. ABG/GI: Nontender, soft, normal bowel sounds, no distention, no organomegaly, pelvic rock is negative NEURO: Oriented AOx3, neuro is grossly intact, sensation and motor is normal all 4 extremities moving, cranial nerves II through XII are intact, GCS is 15 PSYCH: Normal mood and affect SKIN: Intact, warm and dry, no crepitus and without decubitus BACK: No CVA tenderness, no vertebral tenderness, no step-off's, no crepitus EXT: His right knee is nontender, full range of motion, no other bony ten derness left lower extremity. Patient has tenderness over his right knee, he does have pain with movement, no crepitus, he has swelling and appears to have some pretty significant osteoarthritic changes unclear if there is any new deformity but patient does not appreciate any. No other bony tenderness throughout his lower extremity exam. Hips are nontender, no pedal edema, normal color and temperature, normal range of motion of extremities with normal tendon exam, 2+ pulses in all four extremities Initial Vital Signs Initial Vital Signs: Vital Signs Temperature 97 F L 03/09/23 01:57 Pulse Rate 66 03/09/23 01:57 Respiratory Rate 16 03/09/23 01:57 Blood Pressure 114/52 L 03/09/23 01:57 Pulse Oximetry 99 03/09/23 01:57 Oxygen Delivery Method Room Air 03/09/23 01:57 Course Orders Ordered: Discontinued Medications Acetaminophen (Acetaminophen 325 Mg Tablet) 975 mg PO NOW ONE Stop: 03/09/23 02:12 Last Admin: 03/09/23 02:24 Dose: 975 mg Documented By: LIS Acetaminophen (Acetaminophen 325 Mg Tablet) 650 mg PO Q6H PRN PRN Reason: Fever/Mild Pain (1-3) Last Admin: 03/11/23 13:58 Dose: 650 mg Documented By: Admin: 03/11/23 09:07 Dose: 650 mg Documented By: Admin: 03/10/23 23:49 Dose: 650 mg Documented By: Admin: 03/10/23 05:38 Dose: 650 mg Documented By: Admin: 03/09/23 20:01 Dose: 650 mg Documented By: Finasteride (Finasteride 5 Mg Tablet) 5 mg PO DAILY [facility] Last Admin: 03/11/23 09:05 Dose: 5 mg Documented By: Admin: 03/10/23 08:23 Dose: 5 mg Documented By: LDV Heparin Sodium (Porcine) (Heparin 5,000 Unit/Ml Vial) 5,000 unit SUBCUT BID [facility] Last Admin: 03/11/23 09:04 Dose: 5,000 unit Documented By: Admin: 03/10/23 21:04 Dose: 5,000 unit Documented By: Admin: 03/10/23 08:23 Dose: 5,000 unit Documented By: Admin: 03/09/23 20:26 Dose: 5,000 unit Documented By: MS Phytonadione 5 mg/ Sodium (Chloride) 100.5 mls @ 201 mls/hr IV NOW ONE Stop: 03/09/23 05:15 Last Infusion: 03/09/23 06:08 Dose: 0 mls/hr Documented By: Admin: 03/09/23 05:23 Dose: 201 mls/hr Documented By: Sodium Chloride (Normal Saline 0.9%) 1,000 mls @ 1,000 mls/hr IV BOLUS ONE Stop: 03/09/23 06:14 Last Infusion: 03/09/23 06:46 Dose: 0 mls/hr Documented By: Admin: 03/09/23 05:23 Dose: 1,000 mls/hr Documented By: Sodium Chloride (Normal Saline 0.9%) 1,000 mls @ 125 mls/hr IV CONT SCOTT Last Infusion: 03/10/23 15:06 Dose: 0 mls/hr Documented By: Admin: 03/10/23 06:45 Dose: 125 mls/hr Documented By: Infusion: 03/10/23 06:18 Dose: 125 mls/hr Documented By: Admin: 03/09/23 22:18 Dose: 125 mls/hr Documented By: Infusion: 03/09/23 20:53 Dose: 100 mls/hr Documented By: Admin: 03/09/23 10:53 Dose: 100 mls/hr Documented By: LDV Sodium Chloride (Normal Saline 0.9%) 500 mls @ 1,000 mls/hr IV BOLUS ONE Stop: 03/09/23 14:41 Last Admin: 03/09/23 14:32 Dose: 1,000 mls/hr Documented By: LDV POTASSIUM CHLORIDE IN WATER (Potassium Cl 10 Meq/100 Ml Madeline) 10 meq in 100 mls @ 100 mls/hr IV Q1H SCOTT Stop: 03/09/23 19:59 Last Admin: 03/09/23 19:22 Dose: 100 mls/hr Documented By: Infusion: 03/09/23 19:08 Dose: 100 mls/hr Documented By: Admin: 03/09/23 18:08 Dose: 100 mls/hr Documented By: Infusion: 03/09/23 18:07 Dose: 100 mls/hr Documented By: Admin: 03/09/23 17:07 Dose: 100 mls/hr Documented By: Infusion: 03/09/23 17:07 Dose: 100 mls/hr Documented By: Admin: 03/09/23 16:14 Dose: 100 mls/hr Documented By: LDV Sodium Chloride (Normal Saline 0.9%) 1,000 mls @ 1,000 mls/hr IV BOLUS ONE Stop: 03/09/23 19:20 Last Admin: 03/09/23 20:08 Dose: 1,000 mls/hr Documented By: MS POTASSIUM CHLORIDE IN WATER (Potassium Cl 10 Meq/100 Ml Madeline) 10 meq in 100 mls @ 100 mls/hr IV Q1H SCOTT Stop: 03/09/23 22:59 Last Admin: 03/09/23 23:41 Dose: 100 mls/hr Documented By: Infusion: 03/09/23 23:35 Dose: 100 mls/hr Documented By: Admin: 03/09/23 22:35 Dose: 100 mls/hr Documented By: Infusion: 03/09/23 22:32 Dose: 100 mls/hr Documented By: Admin: 03/09/23 21:32 Dose: 100 mls/hr Documented By: Infusion: 03/09/23 21:26 Dose: 100 mls/hr Documented By: Admin: 03/09/23 20:26 Dose: 100 mls/hr Documented By: MS POTASSIUM CHLORIDE IN WATER (Potassium Cl 10 Meq/100 Ml Madeline) 10 meq in 100 mls @ 100 mls/hr IV Q1H SCOTT Stop: 03/10/23 11:44 Last Admin: 03/10/23 12:53 Dose: 100 mls/hr Documented By: Infusion: 03/10/23 12:53 Dose: 100 mls/hr Documented By: Admin: 03/10/23 11:53 Dose: 100 mls/hr Documented By: Infusion: 03/10/23 11:12 Dose: 100 mls/hr Documented By: Admin: 03/10/23 10:12 Dose: 100 mls/hr Documented By: Infusion: 03/10/23 09:50 Dose: 100 mls/hr Documented By: Admin: 03/10/23 08:50 Dose: 100 mls/hr Documented By: STERLINGV Sodium Chloride (Normal Saline 0.9%) 1,000 mls @ 1,000 mls/hr IV BOLUS ONE Stop: 03/10/23 08:38 Last Admin: 03/10/23 07:48 Dose: 1,000 mls/hr Documented By: JAE Lidocaine (Lidocaine Patch 1 Each Adh..Patch) 1 each TOP NOW ONE Stop: 03/09/23 04:53 Last Admin: 03/09/23 04:55 Dose: 1 each Documented By: Naloxone HCl (Naloxone 0.4 Mg/Ml Vial) 0.2 mg IV Q2MIN PRN PRN Reason: Opiate Reversal Ondansetron HCl (Ondansetron 4 Mg/2 Ml Inj) 4 mg IV Q8HR PRN PRN Reason: Nausea And Vomiting Potassium Chloride (Potassium Chloride 20 Meq Tab) 40 meq PO BIDWM SCOTT Last Admin: 03/11/23 09:00 Dose: 40 meq Documented By: Admin: 03/10/23 16:59 Dose: 40 meq Documented By: Admin: 03/10/23 08:23 Dose: 40 meq Documented By: Admin: 03/09/23 17:00 Dose: Not Given Documented By: Admin: 03/09/23 16:14 Dose: 40 meq Documented By: JAE Potassium Chloride (Potassium Chloride 20 Meq Tab) 40 meq PO NOW ONE Stop: 03/10/23 02:40 Last Admin: 03/10/23 03:02 Dose: 40 meq Documented By: MS Potassium Chloride (Potassium Chloride 20 Meq Tab) 40 meq PO NOW ONE Stop: 03/10/23 06:44 Last Admin: 03/10/23 06:52 Dose: 40 meq Documented By: MS Sodium Chloride (Sodium Chloride 0.9% 500 Ml) 500 ml IV NOW ONE Stop: 03/09/23 23:04 Last Admin: 03/09/23 23:12 Dose: 500 ml Documented By: MS Sodium Chloride (Sodium Chloride 0.9% Flush) 10 ml IV BID [facility] Last Admin: 03/11/23 09:05 Dose: 10 ml Documented By: Admin: 03/10/23 21:08 Dose: 10 ml Documented By: Tamsulosin HCl (Tamsulosin 0.4 Mg Capsule) 0.4 mg PO DAILY [facility] Last Admin: 03/11/23 09:05 Dose: 0.4 mg Documented By: Admin: 03/10/23 08:23 Dose: 0.4 mg Documented By: JAE Vital Signs Vital signs: Vital Signs - 8 hr 03/09/23 01:57 03/09/23 04:45 03/09/23 04:46 Temperature 97 F L Pulse Rate 66 67 Respiratory Rate 16 Blood Pressure 114/52 L 131/53 L Pulse Oximetry 99 97 Oxygen Delivery Method Room Air 03/09/23 04:46 03/09/23 05:01 03/09/23 05:04 Temperature Pulse Rate 64 64 Respiratory Rate Blood Pressure 103/63 Pulse Oximetry 97 92 Oxygen Delivery Method 03/09/23 05:04 03/09/23 05:30 03/09/23 05:30 Temperature Pulse Rate 74 67 Respiratory Rate 20 Blood Pressure 109/58 L Pulse Oximetry 95 96 Oxygen Delivery Method Room Air 03/09/23 05:57 03/09/23 05:57 Temperature Pulse Rate 75 Respiratory Rate 14 Blood Pressure 97/60 Pulse Oximetry 97 Oxygen Delivery Method MDM - Fall Lab Data 03/11/23 06:05 03/11/23 06:05 Labs: Lab Results 03/09/23 03/09/23 03/09/23 Range/Units 04:43 04:47 04:47 WBC 8.4 (4.5-11.0) X10^3/uL RBC 3.31 L (4.5-5.9) X10^6/uL Hgb 8.8 L (13.5-17.5) g/dL Hct 26.6 L (41-53) % MCV 80.5 (80-100) fL MCH 26.7 (26-34) PG MCHC 33.2 (30-36) % RDW 16.4 H (11.6-14.8) % Plt Count 177 (150-400) X10^3/uL Neut % (Auto) 77.1 H (50-75) % Lymph % (Auto) 8.9 L (25-40) % [place] % (Auto) 13.0 (3-14) % Eos % (Auto) 0.5 L (2-4) % Baso % (Auto) 0.5 (0-2) % Neut # (Auto) 6400 (9550-2819) /uL Lymph # (Auto) 700 L (1018-1211) /uL [place] # (Auto) 1100 H (0-900) /uL Eos # (Auto) 0 (0-450) /uL Baso # (Auto) 0 (0-100) /uL PT 95.3 H (10.1-12.7) SECONDS INR 8.1 H* (0.9-1.3) APTT 45 H (26-36) SECONDS Sodium (137-145) mmol/L Potassium (3.4-5.1) mmol/L Chloride (98-107) mmol/L Carbon Dioxide (22-32) mmol/L BUN (9-20) mg/dL Creatinine (0.66-1.25) mg/dL Estimated GFR (>60) mL/min BUN/Creatinine Ratio (6-22) Glucose (80-110) mg/dL Calcium (8.4-10.2) mg/dL Magnesium 2.7 H (1.6-2.3) mg/dL Total Bilirubin (0.2-1.3) mg/dL AST (17-59) IU/L ALT (<50) IU/L Alkaline Phosphatase (38-126) U/L Total Protein (6.3-8.2) g/dL Albumin (3.5-5.0) g/dL Globulin (1.7-4.1) g/dL Albumin/Globulin Ratio (1.0-2.8) 03/09/23 Range/Units 04:47 WBC (4.5-11.0) X10^3/uL RBC (4.5-5.9) X10^6/uL Hgb (13.5-17.5) g/dL Hct (41-53) % MCV (80-100) fL MCH (26-34) PG MCHC (30-36) % RDW (11.6-14.8) % Plt Count (150-400) X10^3/uL Neut % (Auto) (50-75) % Lymph % (Auto) (25-40) % [place] % (Auto) (3-14) % Eos % (Auto) (2-4) % Baso % (Auto) (0-2) % Neut # (Auto) (8866-8454) /uL Lymph # (Auto) (0609-3595) /uL [place] # (Auto) (0-900) /uL Eos # (Auto) (0-450) /uL Baso # (Auto) (0-100) /uL PT (10.1-12.7) SECONDS INR (0.9-1.3) APTT (26-36) SECONDS Sodium 125 L (137-145) mmol/L Potassium 3.1 L (3.4-5.1) mmol/L Chloride 84 L (98-107) mmol/L Carbon Dioxide 30 (22-32) mmol/L BUN 119 H* (9-20) mg/dL Creatinine 1.77 H (0.66-1.25) mg/dL Estimated GFR 37 L (>60) mL/min BUN/Creatinine Ratio 67.2 H (6-22) Glucose 103 (80-110) mg/dL Calcium 8.9 (8.4-10.2) mg/dL Magnesium (1.6-2.3) mg/dL Total Bilirubin 0.5 (0.2-1.3) mg/dL AST 35 (17-59) IU/L ALT 20 (<50) IU/L Alkaline Phosphatase 66 (38-126) U/L Total Protein 6.4 (6.3-8.2) g/dL Albumin 3.8 (3.5-5.0) g/dL Globulin 2.6 (1.7-4.1) g/dL Albumin/Globulin Ratio 1.5 (1.0-2.8) Urine Dip Bedside Urine Glucose Negative Bedside Urine Bilirubin - Negative Bedside Urine Ketone - Negative Urine Specific [place] 1.010 Bedside Urine Occult Blood - Negative Bedside Urine pH 6.5 Bedside Urine Protein - Negative Bedside Urine Urobilinogen - Negative Bedside Urine Nitrite - Negative Bedside Urine Leukocytes - Negative Esterase Imaging Data Lspine CT: Radiologist's Impression: 10% acute burst fracture L3 vertebral body. Patient has chronic appearing anterior wedging configuration. Multilevel grade 1 listhesis most prominent anterolisthesis L3 and L4 or other spinal stenosis. Left lateral bulging disc L4-5. Right lateral protrusion L5-S1. Spondylosis. Mild leftward curvature lumbar spine positional versus levoscoliosis and arthrosclerosis noted. Extremity x-ray #1: Radiologist's Impression: No acute fracture, large joint effusion again noted, apparent impaction injury lateral femoral condyle a deep sources unchanged. Lateral tilt patella. Severe narrowing medial and lateral tibiofemoral compartments. Small sub chondral cysts, sclerosis, marginal osteophytes as well as small erosions. Findings may represent erosive osteoarthritis. Seronegative spondyloarthropathy they is less likely. No dislocation periods have your atherosclerosis doses. ECG Data Attestation: I personally reviewed and interpreted this ECG as follows: Interpretation: Atrial fibrillation with PVCs. Rate of 67 QRS of 108 QTC 515. Patient has prior from 01/16 23 has AFib with PVCs on the EKG patient does not appear to have new ST segment changes today. MDM Narrative Medical decision making narrative: 82-year-old male anticoagulated on Coumadin who had slip and fall in the shower. Patient states he did not hit his head, he denies any headache neck pain, he does describe lower back pain radiating midline. Describes pain in his knee particularly his right knee which is large and deformed but he states only slightly swollen from usual. Can move it but is tender with bony tenderness. L-spine shows L3% burst fracture, x-ray shows chronic appearing changes but no acute fracture. On review patient's labs was noted he had hypokalemia trending down words several days ago, labs were repeated as he patient was unaware of this potassium is improved at 3.1 but patient has not INR of 8, acute kidney injury with some signs elevated BUN and dehydration. Urine does not show any infection, patient has hyponatremia slowly decreasing. Patient has a hemoglobin of 8. Secondary this patient states he did not hit his head but did have head CT ordered as he has increased risk of spontaneous bleed. He is alert, oriented and appropriate. EKG shows AFib with occasional PVCs she looks very similar to prior. Patient was given oral potassium, fluids, dose of vitamin K. patient defers any think stronger than Tylenol for pain medication he does not want any narcotics but open to lidocaine patch. Head CT shows no acute bleed or change. SPoke with Dr. Carmona, orthopedic surgery: Reviewed patient has 10% acute burst fracture at L3. He would recommend TLSO brace and observation monitoring as patient's INR is quite elevated for any acute neurologic changes. Orthopedic can be consulted as needed. No plan for surgery at this time and when patient was felt appropriate for discharge could discharge home with brace with Orthopedic follow-up. Hospitalist: Dr. Salgado asks if day physician can be contacted. Spoke with Dr. Frances who accepts for admission. Critical Care Time Critical Care Time Critical Care Time: Yes Total Critical Care Time: 25 Attestation: The high probability of a clinically significant, sudden or life threatening deterioration of the [cardiac, heme, neuro] system(s) required my full and direct attention, intervention and personal management. The aggregate critical care time was [] minutes. This time is in addition to time spent performing reported procedures but includes the following: [x] Data Review and interpretation [x] Patient assessment and monitoring of vital signs [x] Documentation [x] Medication orders and management Discharge Plan Departure Patient Disposition: Admitted As Inpatient Clinical Impression: Closed L3 vertebral fracture, Supratherapeutic INR, Acute kidney injury, Hypokalemia, Hyponatremia Admit Date/Time: 03/09/23 07:21 Admit Provider: Dioni Frances
--- NOTE | 2023-03-09 02:11 | DI.RAD.S_ITS ---
PROCEDURE: XR KNEE RT 3V INDICATIONS: Fall, knee pain, acute on chronic TECHNIQUE: 3 views of the knee were acquired. COMPARISON: [facility], CT, CT HEAD/BRAIN WO CON, 03/09/2023, 5:33. [facility], CT, CT LUMBAR SPINE WO CON, 03/09/2023, 3:05. [facility], CR, XR KNEE RT 3V, 01/06/2023, 2:07. FINDINGS: Bones: No fractures or dislocations. Remote trauma can be seen, with back bowden injury of the lateral femoral condyle. No suspicious bony lesions. There is moderate to severe lateral and medial femorotibial joint space narrowing seen, with associated remodeling changes including subchondral sclerosis and osteophyte formation along the jointline. Lateral subluxation of the patella can be seen on the sunrise view. Soft tissues: There is a large joint effusion. Soft tissue swelling is seen anteriorly. Atherosclerotic calcification is noted. IMPRESSION: No displaced fracture can seen on these plain films. Large joint effusion soft tissue swelling. Extensive degenerative change. Note: No significant discrepancy from the preliminary report. Dictated by: Tejinder Clement M.D. on 03/09/2023 at 8:27 Approved by: Tejinder Clement M.D. on 03/09/2023 at 8:29
--- NOTE | 2023-03-09 02:11 | DI.CT.S_ITS ---
PROCEDURE: CT LUMBAR SPINE WO CON INDICATIONS: Fall; lower back pain. TECHNIQUE: Noncontrast 3 mm thick sections acquired from the T12 level to the sacrum. Sagittal and coronal reformats were constructed. For radiation dose reduction, the following was used: automated exposure control. COMPARISON: [facility], CR, XR KNEE RT 3V, 03/09/2023, 3:03. [facility], CT, CT HEAD/BRAIN WO CON, 03/09/2023, 5:33. FINDINGS: Image quality: Excellent. Bones: There is an acute appearing fracture seen involving the superior endplate of L3, which is best demonstrated on series 4, image 14, with 10% loss of height. No posterior displacement fracture fragments can be seen. No additional fractures are detected. No generalized osteopenia and degenerative changes are seen, which are worst inferiorly. At the L4-L5 level, there is a central/left disc protrusion, continuing into the foraminal region, as on series 3, image 61. There is at least moderate bilateral neural foraminal narrowing at this level, with at least moderate central canal narrowing. At L5-S1, there is a right subarticular/foraminal disc protrusion, with moderate to severe bilateral neural foraminal narrowing at this level. Mild levoconvex scoliotic curvature is noted. Minimal anterolisthesis can be seen at the L3-L4 level. No pars defects are seen. Soft tissues: No retroperitoneal masses or hematomas. Visualized aorta is normal in caliber. Atherosclerotic calcification is noted. Gallstones are seen. IMPRESSION: Mild acute superior endplate compression deformity of L3. Underlying degenerative changes are seen, which are worst inferiorly. Additional findings: Gallstones Note: No significant discrepancy from the preliminary report. Dictated by: Tejinder Clement M.D. on 03/09/2023 at 8:29 Approved by: Tejinder Clement M.D. on 03/09/2023 at 8:33
[2023-03-09] MEDS: ACETAMINOPHEN 325 MG TABLET 975 MG PO (02:24)
[2023-03-09 04:55] LABS: Add Manual Diff / Slide Review NO; Basophils Absolute Auto 0 /uL (0-100); Basophils Percent Auto 0.5 % (0-2); Eosinophils Absolute Auto 0 /uL (0-450); Eosinophils Percent Auto 0.5 % (2-4); Hematocrit 26.6 % (41-53); Hemoglobin 8.8 g/dL (13.5-17.5); Lymphocytes Absolute Auto 700 /uL (1100-4500); Lymphocytes Percent Auto 8.9 % (25-40); Mean Corpuscular HGB Conc 33.2 % (30-36); Mean Corpuscular Hemoglobin 26.7 PG (26-34); Mean Corpuscular Volume 80.5 fL (80-100); Monocytes Absolute Auto 1100 /uL (0-900); Neutrophils Absolute Auto 6400 /uL (1500-7000); Neutrophils Percent Auto 77.1 % (50-75); Platelet Count 177 X10^3/uL (150-400); Red Blood Cell Count 3.31 X10^6/uL (4.5-5.9); Red Cell Distribution Width 16.4 % (11.6-14.8); White Blood Cell Count 8.4 X10^3/uL (4.5-11.0)
[2023-03-09] MEDS: LIDOCAINE PATCH 1 EACH ADH..PATCH TOP (04:55)
[2023-03-09 05:04] LABS: PTT Partial Thromboplastin Tim 45 SECONDS (26-36)
[2023-03-09 05:05] LABS: Alanine Aminotransferase 20 IU/L (<50); Albumin 3.8 g/dL (3.5-5.0); Albumin Globulin Ratio 1.5 (1.0-2.8); Alkaline Phosphatase 66 U/L (38-126); Aspartate Aminotransferase 35 IU/L (17-59); Bilirubin Total 0.5 mg/dL (0.2-1.3); Calcium 8.9 mg/dL (8.4-10.2); Carbon Dioxide 30 mmol/L (22-32); Chloride 84 mmol/L (98-107); Estimated Glomerular Filt Rate 37 mL/min (>60); Globulin 2.6 g/dL (1.7-4.1); Glucose 103 mg/dL (80-110); HEMOLYSIS < 15 (0-50); Potassium 3.1 mmol/L (3.4-5.1); Sodium 125 mmol/L (137-145); Total Protein 6.4 g/dL (6.3-8.2)
[2023-03-09 05:09] LABS: Prothrombin Time 95.3 SECONDS (10.1-12.7)
[2023-03-09 05:12] LABS: BUN Creatinine Ratio 67.2 (6-22)
[2023-03-09 05:14] LABS: Blood Urea Nitrogen 119 mg/dL (9-20)
--- NOTE | 2023-03-09 05:14 | DI.CT.S_ITS ---
PROCEDURE: CT HEAD/BRAIN WO CON INDICATIONS: INR 8; no trauma. TECHNIQUE: Noncontrast 4.5 mm thick angled axial sections acquired from the foramen magnum to the vertex, with coronal and sagittal reformats. For radiation dose reduction, the following was used: automated exposure control, adjustment of mA and/or kV according to patient size. COMPARISON: [facility], CT, CT HEAD/BRAIN WO CON, 01/15/2023, 23:37. FINDINGS: Image quality: Excellent. CSF spaces: Basal cisterns are patent. No extra-axial fluid collections. Ventricles are normal in size and shape. Brain: No midline shift. No intracranial masses or hemorrhage. Right basal ganglia calcification, unchanged. No area of hypodensity in a large vascular distribution to suggest acute infarction. Periventricular hypodensity consistent with chronic microvascular ischemic change. Age-related parenchymal loss. Skull and face: Calvarium and visualized facial bones are intact, without suspicious lesions. Sinuses: Visualized sinuses and mastoids are clear. IMPRESSION: No acute intracranial abnormality. Chronic microvascular ischemic disease. This report is concordant with the overnight preliminary interpretation. Dictated by: Devon Rodney M.D. on 03/09/2023 at 7:02 Approved by: Devon Rodney M.D. on 03/09/2023 at 7:04
[2023-03-09 05:15] LABS: INR 8.1 (0.9-1.3)
[2023-03-09] MEDS: PHYTONADIONE (VIT K1) 5 MG in SODIUM CHLORIDE 0.9% 100 ML 201 MG IV (05:23)
[2023-03-09] MEDS: SODIUM CHLORIDE 0.9% 1,000 ML 1000 ML IV ×2 (05:23→20:08)
[2023-03-09 05:30] LABS: Magnesium 2.7 mg/dL (1.6-2.3)
--- NOTE | 2023-03-09 06:10 | PC.NURSE ---
Condom catheter placed on patient per patient request.
--- NOTE | 2023-03-09 06:39 | PC.NURSE ---
TLSO brace placed on patient.
--- NOTE | 2023-03-09 07:48 | PC.NURSE ---
Pt yelling from room. In to assess. Pt yelling that he wants his TSLO brace removed. Brace already unbuckled by the patient's doing. Removed. Pt states pain has decreased after brace removed.
[2023-03-09] MEDS: SODIUM CHLORIDE 0.9% 1,000 ML 100 ML IV (10:53)
[2023-03-09] MEDS: SODIUM CHLORIDE 0.9% 500 ML 1000 ML IV (14:32)
--- NOTE | 2023-03-09 14:45 | PT.IIE ---
Surgical History (Last Reviewed 02/25/23 @ 15:13 by Barrera Roth MD) Anesthesia H/O mitral valve replacement (~03/2017) Hx of heart artery stent (~1994) Medical History (Last Reviewed 02/25/23 @ 15:13 by Barrera Roth MD) Asthma BPH w urinary obs/LUTS Chicken pox Chronic anticoagulation Chronic atrial fibrillation Chronic diastolic CHF (congestive heart failure), NYHA class 1 Colon polyps Coronary artery disease Crohn's disease Diverticular disease Easy bruisability Essential hypertension Fractures Hearing loss Hemorrhoid History of colonic polyps History of urinary incontinence (~2018) Measles Mixed hyperlipidemia Mumps Myocardial infarction Obesity Osteoarthritis Positive PPD Primary osteoarthritis involving multiple joints Pulmonary hypertension Right inguinal hernia Tinnitus Vision disorder Physical Therapy Inpatient Evaluation/Re-Eval M1 PT/OT-IP Prior Functional Status Start: 03/09/23 15:38 Freq: NEEDED Status: Active Protocol: Document 03/09/23 14:45 DLM (Rec: 03/09/23 16:00 DLM [id number]) Medical Review Prior Functional Status Medical History Reviewed Yes Diet/Fluid Consistency Regular Communication WFL, Hard of hearing Mobility and Gait Independent with 4WW Activities of Daily Living and IADL's Independent with basic ADL's. He does not like to use the seat in the shower but he has one. Condom catheter at night due to incontinence. His family helps with IADL's. Prior Functional Level (Other details) he went to SNF rehab after 05 January hospitalization where he recovered well. He went home on 02/19/23 with home health services. Social History Household Members spouse Living Arrangements House Number of Floors (Floors) One Floor Number of Stairs To Enter/Railing? ramp Home Environment Standard Height Toilet,Walk in Shower Home Equipment Four Wheel Walker,Shower Seat with Backrest,Grab Bars Near Toilet,Grab Bars In Shower Additional Social History Comment His arrived to visit today in a wheelchair with family. His Daughter lives on the same property but in her own home. M2 PT-IP Current Condition Start: 03/09/23 15:38 Freq: NEEDED Status: Active Protocol: Document 03/09/23 14:45 DLM (Rec: 03/09/23 16:00 DLM [id number]) Physical Therapy Current Condition Current Condition Evaluation Date 03/09/23 Treatment Diagnosis L3 burst fracture due to a fall, impaired mobility/gait Onset Date 03/09/23 M3 PT-IP Subjective Start: 03/09/23 15:38 Freq: NEEDED Status: Active Protocol: Document 03/09/23 14:45 DLM (Rec: 03/09/23 16:00 DLM [id number]) Subjective Physical Therapy Visit Type Type Initial Evaluation Visit Start Time 14:00 Visit Stop Time 14:45 Total Visit Minutes 45 Number of CONFERENCE ASSISTANT Visits 0 Physical Therapy Visit Comments Patient Comments He reports his right knee hurts as bad as his back today . The back brace is too painful to wear in bed. His family reports he was up showering at about 1AM when he fell in the shower. The patient was in pain so they called 911 to get him up and take him to the hospital. Patient Goals Go back home Therapy Pain Assessment Pain When Pain Assessed During Mobility Pain Present Pain Present Pain Reported M4 PT-IP Mobility and Gait Start: 03/09/23 15:38 Freq: NEEDED Status: Active Protocol: Document 03/09/23 14:45 DLM (Rec: 03/09/23 16:00 DLM [id number]) PT-Bed Mobility Assessment Rolling Type of Rolling Log Rolling Level of Assist Minimal Assistance Supine to Sit Supine to Sit Standby Assistance,Head of Bed Elevated Sit to Supine Sit to Supine Contact Guard Assistance, Bedrails Scooting Scooting to Edge of Bed Independent PT-Transfer Assessment Sit to and From Stand Sit to and from Stand Standby Assistance,Use of Upper Extremities Equipment Transfer Assistive Device Gait Belt,Front Wheeled Walker Orthotic/Prosthetic Devices or Brace: Yes Transfers Transfer Destination Bed,Chair Transfer Technique Stand Step Pivot Transfer Ability Level of Assist Standby Assistance,Contact Guard Assistance,Use of Upper Extremities Comments Mobility Comments Pt did not tolerated TLSO in supine and has brace off, he agreed to put the brace on in sitting with good tolerance. Pt up in recliner after gait but requests TLSO off. Pt later returned to bed to manage his pain and fatigue. Sitting in recliner BP 90/48 and HR 70. Pt is not light- headed. Gait Assessment Gait Gait Assistance Required: Standby Assistance,Contact Guard Assist Distance (Feet) 120 Able to Maintain Weight Bearing Status Yes During Gait Assistive Devices Assistive Device Gait Belt,Front Wheeled Walker Gait Deviations General Gait Pattern Decreased Stride Length,Flexed Trunk Factors Limiting Gait Function Factors Limiting Gait Function Decreased Activity Tolerance, Decreased Strength,Pain,Poor Balance Comments Gait Comments TLSO when ambulating with good tolerance, slow pace of gait, kyphotic posture in thoracic spine, right knee pain during gait more than back Stair Climbing Assessment Comments Stair Climbing Comments ramp at home PT-Balance Assessment Sitting Balance and Reactions Static Sitting Balance Ability Good Dynamic Sitting Balance Ability Good Standing Balance and Reactions Static Standing Balance Ability Good Dynamic Standing Balance Ability Fair Device Used FWW M5 PT-IP Objective Assessments Start: 03/09/23 15:38 Freq: NEEDED Status: Active Protocol: Document 03/09/23 14:45 DLM (Rec: 03/09/23 16:00 DLM [id number]) Orientation Orientation/Cognition Level of Alertness Alert Orientation Name,Age,Birthday,Month,Date, Year,Day of Week,Place, Situation Language Function Ability Hard of Hearing Safety Awareness Decreased Safety Awareness Memory Description Short Term Impaired Comments he is open to education about safety issues and his new precautions, he is cooperative and shows good effort with therapy Gross Range of Motion Upper Extremity ROM Assessment Within Functional Limits Lower Extremity ROM Assessment Within Functional Limits Impairments pain right knee Strength Upper Extremity Strength Assessment Within Functional Limits Lower Extremity Strength Assessment Right Impaired Knee pain limits functional strength, TKA scheduled for Comments Strength Comments trunk ROM and strength limited by back pain and precautions Coordination Assessment Gross Coordination Gross Coordination WNL Sensation Assessment Sensation Gross Sensation WNL Comments Sensation Comments no changes reports since his fall Muscle Tone Muscle Tone WNL Yes M6 PT-IP Treatment Start: 03/09/23 15:38 Freq: NEEDED Status: Active Protocol: Document 03/09/23 14:45 DLM (Rec: 03/09/23 16:00 DL [id number]) Physical Therapy Treatment Exercises Exercises Ankle Pumps Education Education Provided Precautions,Safety Brace Education [place],Patient, Caregiver Other Treatments Other Treatment Performed His Daughter and arrived during this visit M7 PT-IP Assessment and Plan Start: 03/09/23 15:38 Freq: NEEDED Status: Active Protocol: Document 03/09/23 14:45 DLM (Rec: 03/09/23 16:00 DLM [id number]) PT Summary Assessment and Plan Potential Rehabilitation Potential Good Status of Condition at Evaluation Evolving Summary Impairments Pain,ROM,Strength,Balance,Bed Mobility,Transfers,Gait, Activity Tolerance Assessment Summary Destin is alert and eager to get out of bed this visit. He tolerated gait in the olguin well with the FWW and the TLSO . No light-headedness reported . He sat up in the recliner but then requested back to bed . He does not tolerate the TLSO sitting in the recliner nor in bed. His family arrived and is very supportive. His is not able to physically assist him at home due to her advanced age and health issues. His Daughter lives on the same property but has a separate home. Anticipate pt will need a little extra help at discharge to manage his TLSO. Will plan for discharge home with family assist and home health services if he continues to progress well. Goals Bed Mobility Goal Independent Transfer Goal Independent,Front Wheeled Walker,Four Wheeled Walker Gait Goal Standby Assistance,Front Wheel Walker,Four Wheel Walker Gait Distance 150 feet Other Goals Patient/family independent with management of TLSO Days to Meet Goals 2 Frequency of Treatment Frequency Of Treatment Once a Day Treatment Plan Physical Therapy Treatment Plan Bed Mobility Training,Transfer Training,Gait Training, Therapeutic Exercise,Balance Retraining,Discharge Planning, Hot or Cold Pack Other Recommendations and Next Treatment educate pt and family in Focus wearing TLSO Precautions Lumbar Precautions Log Roll,No Twisting,Limit Bending,Lifting Restriction of 10 lbs Other Precautions low BP today, wear TLSO when up moving Recommendations To Nursing Amount of Assist Needed 1 Person Assist Discharge Recommendations PT Discharge Recommendations Home with Assistance,Home Health Transportation Needs at Discharge Private Vehicle
[2023-03-09 15:22] LABS: BUN Creatinine Ratio 80.8 (6-22); Blood Urea Nitrogen 105 mg/dL (9-20); Calcium 8.5 mg/dL (8.4-10.2); Carbon Dioxide 35 mmol/L (22-32); Chloride 85 mmol/L (98-107); Estimated Glomerular Filt Rate 54 mL/min (>60); Glucose 106 mg/dL (80-110); HEMOLYSIS < 15 (0-50); Sodium 129 mmol/L (137-145)
[2023-03-09 15:35] LABS: Potassium 2.2 mmol/L (3.4-5.1)
[2023-03-09] MEDS: POTASSIUM CHLORIDE IN WATER 10 MEQ/100 ML PIGGYBACK 100 MEQ IV ×8 (16:14→23:41)
[2023-03-09] MEDS: POTASSIUM CHLORIDE 20 MEQ TAB 40 MEQ PO (16:14)
[2023-03-09] MEDS: ACETAMINOPHEN 325 MG TABLET 650 MG PO (20:01)
--- NOTE | 2023-03-09 20:03 | PM.HP.1 ---
History of Present Illness History of Present Illness Date Patient Seen: 03/09/23 Time Patient Seen: 09:00 Chief complaint: Back Pain Narrative: Mr. Powell is an 82M with PMH CHFpEF, CAD, afib who presents to the hospital with a fall. He states he has been somewhat dehydrated. He had recently been diuresed quite significantly. Apparently he once weight over 200lbs, he was seen by cardiology group about a week ago and weighed 158, today on admit he weighs 143lbs. He has been treated with 100mg torsemide, 2.5mg metolazone, and he has been on eplerenone. He also was recently prescribed levofloxacin. He notes he was in the shower and slipt and fell. He felt his legs were weak. He did not feel lightheaded or dizzy. He had back pain after so he presented to the hospital. In the ED workup was done and vitals notable for afebrile, heart rate 60s, blood pressure 110s/50s, sats 99% on room air. Labs reviewed by me and notable for WBC 8.4, hgb 8.8, plts 177. Na 125, K 3.1, BUN 119, creatinine 1.77. INR 8.1. CT cspine reviewed and notable for L3 burst fracture. Ortho consulted and recommended TLSO brace. Per the ED note, the tele-rn acute dialysis, Dr. Salgado, was notified and per ED note Dr. Salgado asked if the ED physician could wait and contact the daytime hospitalist for admission. I noted the patient was urinating quite briskly with no diuretics ordered and admitted the patient. [facility] Medical History Asthma BPH w urinary obs/LUTS Chicken pox Chronic anticoagulation Chronic atrial fibrillation Chronic diastolic CHF (congestive heart failure), NYHA class 1 Colon polyps Coronary artery disease Crohn's disease Diverticular disease Easy bruisability Essential hypertension Fractures Hearing loss Hemorrhoid History of colonic polyps History of urinary incontinence (~2018) Measles Mixed hyperlipidemia Mumps Myocardial infarction Obesity Osteoarthritis Positive PPD Primary osteoarthritis involving multiple joints Pulmonary hypertension Right inguinal hernia Tinnitus Vision disorder Surgical History Anesthesia H/O mitral valve replacement (~03/2017) Hx of heart artery stent (~1994) Family History Mother Congestive heart failure Father Coronary artery disease Social History household members: spouse Smoking Status: Never smoker substance use type: does not use Type(s) of exercise: walking frequency: daily Meds Home Medications and Allergies Home Medications Medication Instructions Recorded Confirmed Type albuterol sulfate 90 mcg/actuation 2 puff INH PRN PRN Shortness Of 03/22/17 02/25/23 History aerosol inhaler (Proventil HFA) Breath ##0 mesalamine 500 mg capsule,extended 1,000 mg PO BID ##0 03/24/17 02/25/23 History release (Pentasa) calcium carbonate 500 mg-vitamin 3 tab PO DAILY ##0 03/31/17 02/25/23 History D3 2.5 mcg (100 unit) chewable tablet ferrous sulfate 325 mg (65 mg 325 mg PO BID 05/18/18 02/25/23 History iron) tablet finasteride 5 mg tablet 5 mg PO DAILY 05/18/18 03/09/23 History folic acid 1 mg tablet 1 mg PO DAILY 05/18/18 03/09/23 History loratadine 10 mg tablet 10 mg PO DAILY 05/18/18 02/25/23 History nitroglycerin 0.4 mg sublingual 0.4 mg sublingual Q5-15M PRN Chest 05/18/18 02/25/23 History tablet (Nitrostat) Pain simvastatin 40 mg tablet 20 mg PO BEDTIME 12/07/21 03/09/23 History fluticasone propionate 50 1 spray intranasal DAILY PRN 02/07/22 02/25/23 History mcg/actuation nasal allergy symptoms spray,suspension acetaminophen 325 mg tablet 650 mg PO Q4H PRN Pain 04/24/22 02/25/23 History alfuzosin 10 mg tablet,extended 10 mg PO DAILY 04/24/22 03/09/23 History release 24 hr ascorbic acid (vitamin C) 500 mg 500 mg PO DAILY 04/24/22 02/25/23 History tablet neomycin-polymyxin 1 ea topical DAILY PRN Skin 04/24/22 02/25/23 History R-xdvnvmjnbo-otwzeadkhcguyr top Irritation ointment omeprazole 20 mg tablet,delayed 20 mg PO DAILY 04/24/22 02/25/23 History release carvedilol 12.5 mg tablet 12.5 mg PO BID 01/13/23 03/09/23 History isosorbide mononitrate 60 mg 60 mg PO DAILY 01/13/23 03/09/23 History tablet,extended release 24 hr potassium chloride 20 mEq 20 meq PO TID 01/13/23 03/09/23 History tablet,extended release metolazone 2.5 mg tablet 2.5 mg PO DAILY #90 tabs 02/25/23 03/09/23 Rx warfarin 5 mg tablet See Rx Instructions .Route 02/25/23 03/09/23 Rx .COMPLEX #90 tabs amoxicillin 875 mg-potassium 1 tab PO BID UTI #20 tabs 02/27/23 Rx clavulanate 125 mg tablet levofloxacin 500 mg tablet 500 mg PO DAILY #7 tabs 02/28/23 Rx eplerenone 50 mg tablet 50 mg PO DAILY #90 tabs 03/04/23 Rx tamsulosin 0.4 mg capsule 0.4 mg PO DAILY #90 caps 03/04/23 03/09/23 Rx torsemide 100 mg tablet 100 mg PO DAILY #90 tabs 03/04/23 03/09/23 Rx eplerenone 50 mg tablet 50 mg PO DAILY 03/09/23 03/09/23 History Allergies Allergy/AdvReac Type Severity Reaction Status Date / Time ibuprofen Allergy Mild NOT GOOD Verified 02/25/23 14:40 FOR STOMACH BLEEDING iodine Allergy Mild UNKNOWN Verified 02/25/23 14:40 Sulfa (Sulfonamide Allergy Mild BURNED A Verified 02/25/23 14:40 Antibiotics) HOLE THRU INTESTINES thallium-201 Allergy Mild BREAKS OUT Verified 02/25/23 14:40 IN BLOTCHES AND ITCHING terazosin Allergy Hypotension Verified 02/25/23 14:40 spironolactone AdvReac Verified 02/25/23 14:40 Review of Systems Review of Systems Narrative: 14 systems reviewed and negative aside from what is noted in HPI Exam Vital Signs (past 8 hours): - 03/09/23 18:10 03/09/23 20:02 Temperature 97.4 F L Pulse Rate 62 Respiratory Rate 16 Blood Pressure 94/52 L 93/39 L Pulse Oximetry 95 Oxygen Flow Rate 0 Oxygen Delivery Method Room Air Oxygen Flow Rate 0 Narrative Exam Narrative: GEN: frail, chronically ill appearing HEENT: dry mucous membranes CV: regular rate and rhythm, no murmurs PULM: clear bilaterally ABD: soft, nontender Objective Labs 03/09/23 04:47 03/09/23 15:05 Labs: Laboratory Results - last 24 hr 03/09/23 03/09/23 03/09/23 04:43 04:47 04:47 WBC 8.4 RBC 3.31 L Hgb 8.8 L Hct 26.6 L MCV 80.5 MCH 26.7 MCHC 33.2 RDW 16.4 H Plt Count 177 Neut % (Auto) 77.1 H Lymph % (Auto) 8.9 L [place] % (Auto) 13.0 Eos % (Auto) 0.5 L Baso % (Auto) 0.5 Neut # (Auto) 6400 Lymph # (Auto) 700 L [place] # (Auto) 1100 H Eos # (Auto) 0 Baso # (Auto) 0 PT 95.3 H INR 8.1 H* APTT 45 H Sodium Potassium Chloride Carbon Dioxide BUN Creatinine Estimated GFR BUN/Creatinine Ratio Glucose Calcium Magnesium 2.7 H Total Bilirubin AST ALT Alkaline Phosphatase Total Protein Albumin Globulin Albumin/Globulin Ratio 03/09/23 03/09/23 04:47 15:05 WBC RBC Hgb Hct MCV MCH MCHC RDW Plt Count Neut % (Auto) Lymph % (Auto) [place] % (Auto) Eos % (Auto) Baso % (Auto) Neut # (Auto) Lymph # (Auto) [place] # (Auto) Eos # (Auto) Baso # (Auto) PT INR APTT Sodium 125 L 129 L Potassium 3.1 L 2.2 L* Chloride 84 L 85 L Carbon Dioxide 30 35 H BUN 119 H* 105 H Creatinine 1.77 H 1.30 H Estimated GFR 37 L 54 L BUN/Creatinine Ratio 67.2 H 80.8 H Glucose 103 106 Calcium 8.9 8.5 Magnesium Total Bilirubin 0.5 AST 35 ALT 20 Alkaline Phosphatase 66 Total Protein 6.4 Albumin 3.8 Globulin 2.6 Albumin/Globulin Ratio 1.5 Assessment & Plan Assessment & Plan narrative: 1. MIKAYLA, likely ATN -suspect patient had ATN from possible over diuresis -he now seems to have recovered renal function and is urinating briskly -repeat creatinine already improving -continue with IV fluid replacement, will need to be careful with history of CHF -current weight is 143, one week ago documented as 158 -hold eplerenone, torsemide, metolazone 2. Hypokalemia -secondary to diuresis -recheck potassium frequently -ordered for aggressive replacement -keep on telemetry 3. Acute vertebral compression fracture -keep in TLSO brace as able -not a surgical indication per orthopedics 4. Coagulopathy, history of afib on coumadin -hold coumadin for now -did receive IV vitamin k -no evidence of active bleeding -hold beta-jayashree given soft blood pressures -check INR daily I have discussed plan and obtained history from patient. I have discussed plan of care with ED physician and bedside nurse. CODE: Full Proxy: Italia Murphy, [facility] Meds 'Current medications' to include all prescriptions, lktv-hlt-elahwba products, herbals, cannabis/cannabidiol products, and vitamin/mineral/dietary (nutritional) supplements. I have utilized all available resources to obtain, update, or review the patient?s current medications. [If Yes, STOP here]: Yes
[2023-03-09] MEDS: HEPARIN 5,000 UNIT/ML VIAL 5000 UNIT SUBCUT (20:26)
--- NOTE | 2023-03-09 20:31 | PC.NURSE ---
Addendum entered by Eliana Levy R.N. 03/10/23 07:25: Pt kcl continues to be low 2.8 despite multiple K riders and 40 meq kcl twice. BP has slightly improve with a map of 60. Addendum entered by Eliana Levy R.N. 03/10/23 00:53: pt continues to be hypotensive despite IVF boluses, manually 70/42 with a map of 51. Dr. Salgado awared and we are just monitoring pt for the time being. Pt has been here in ICU before due to his hypotension, pt denies any dizzines and is speaking in full sentences. pt currently on IVF NS at 125. Original Note: pt has been hypotensive, asymptomatic, currently getting ivf bolus.
[2023-03-09] MEDS: SODIUM CHLORIDE 0.9% 1,000 ML 125 ML IV (22:18)
[2023-03-09] MEDS: SODIUM CHLORIDE 0.9% 500 ML IV (23:12)
[2023-03-10] VITALS (9 sets, daily range): BP systolic 70–112; BP diastolic 42–65; PULSE 66–89; RESP 16–20; TEMP 36.3–37; O2SAT 93–98
[2023-03-10 02:07] LABS: INR 1.8 (0.9-1.3); Prothrombin Time 21.3 SECONDS (10.1-12.7)
[2023-03-10 02:13] LABS: Add Manual Diff / Slide Review NO; BUN Creatinine Ratio 80.2 (6-22); Basophils Absolute Auto 100 /uL (0-100); Basophils Percent Auto 1.1 % (0-2); Blood Urea Nitrogen 73 mg/dL (9-20); Calcium 7.3 mg/dL (8.4-10.2); Carbon Dioxide 32 mmol/L (22-32); Chloride 89 mmol/L (98-107); Eosinophils Absolute Auto 100 /uL (0-450); Eosinophils Percent Auto 2.3 % (2-4); Estimated Glomerular Filt Rate > 60 mL/min (>60); Glucose 92 mg/dL (80-110); HEMOLYSIS < 15 (0-50); Hematocrit 23.1 % (41-53); Hemoglobin 7.6 g/dL (13.5-17.5); Lymphocytes Absolute Auto 600 /uL (1100-4500); Lymphocytes Percent Auto 13.6 % (25-40); Mean Corpuscular HGB Conc 33.1 % (30-36); Mean Corpuscular Hemoglobin 26.6 PG (26-34); Mean Corpuscular Volume 80.4 fL (80-100); Monocytes Absolute Auto 700 /uL (0-900); Monocytes Percent Auto 15.1 % (3-14); Neutrophils Absolute Auto 3100 /uL (1500-7000); Neutrophils Percent Auto 67.9 % (50-75); Platelet Count 142 X10^3/uL (150-400); Potassium 2.8 mmol/L (3.4-5.1); Red Blood Cell Count 2.87 X10^6/uL (4.5-5.9); Red Cell Distribution Width 16.3 % (11.6-14.8); Sodium 127 mmol/L (137-145); White Blood Cell Count 4.6 X10^3/uL (4.5-11.0)
[2023-03-10] MEDS: POTASSIUM CHLORIDE 20 MEQ TAB 40 MEQ PO ×4 (03:02→16:59)
[2023-03-10] MEDS: ACETAMINOPHEN 325 MG TABLET 650 MG PO ×2 (05:38→23:49)
[2023-03-10 06:12] LABS: BUN Creatinine Ratio 76.2 (6-22); Blood Urea Nitrogen 64 mg/dL (9-20); Calcium 7.9 mg/dL (8.4-10.2); Carbon Dioxide 31 mmol/L (22-32); Chloride 92 mmol/L (98-107); Estimated Glomerular Filt Rate > 60 mL/min (>60); Glucose 88 mg/dL (80-110); HEMOLYSIS < 15 (0-50); Potassium 2.8 mmol/L (3.4-5.1); Sodium 130 mmol/L (137-145)
[2023-03-10] MEDS: SODIUM CHLORIDE 0.9% 1,000 ML 125 ML IV (06:45)
[2023-03-10] MEDS: SODIUM CHLORIDE 0.9% 1,000 ML 1000 ML IV (07:48)
[2023-03-10] MEDS: TAMSULOSIN 0.4 MG CAPSULE PO (08:23)
[2023-03-10] MEDS: FINASTERIDE 5 MG TABLET PO (08:23)
[2023-03-10] MEDS: HEPARIN 5,000 UNIT/ML VIAL 5000 UNIT SUBCUT ×2 (08:23→21:04)
[2023-03-10] MEDS: POTASSIUM CHLORIDE IN WATER 10 MEQ/100 ML PIGGYBACK 100 MEQ IV ×4 (08:50→12:53)
[2023-03-10 09:54] LABS: Magnesium 2.4 mg/dL (1.6-2.3)
--- NOTE | 2023-03-10 14:12 | CM.DANOTE ---
Initial DCP Assessment Note Pt is an 82 yo male, resident of [place], arrives after a fall at home PCP: Barrera Roth Payer: [facility]/[employer] Met w/patient, introduced self and role. Patient lives at home w/his , daughter Chasidy and her spouse live nearby. Patient discharged from [facility] H+R 8., home w/ [facility] Patient has seen patient and recommending home w/assist and HH Met with patient's daughter Chasidy before she left for the day, she confirms patient will be well taken care once home and doesn't want patient to discharge back to SNF. Dtr requests that [facility] be resumed upon patient's DC Patient's grand dtr Dillan will transport patient home tomorrow if discharged STEVE Lazo Discharge Planning/Care Management CM Discharge Assessment Start: 03/10/23 14:07 Freq: Status: Active Protocol: Document 03/10/23 14:07 MARYA (Rec: 03/10/23 14:12 MARYA [id number]) Discharge Planning Assessment Assigned Biometrics Instructor STEVE Woods DPOA/Assigned Designee Name Italia Medeiros, spouse Contact Information [phone] Advance Directives? Yes Advance Directives on File No History Provided By Patient,Family Member,Medical Record Prior Living Arrangements House Household Members spouse Type of transporation used prior to Relies on Others admit Independent with ADL's Yes: with 4WW Is patient alert and oriented? Yes: OSAGE Needs Assistance With Meal Prep,Managing Medications ,Home Chores / Shopping Patient/Family Preference Home with Home Health Comment Has [facility] per family Barriers to Discharge No Comment Anticipate home w/supportive family, spouse, resumption of [facility] services Discharge Plan Home with Home Health Transportation Arrangement Family available to provide transport at d/c Additional Comment Will likely need resumption orders for [facility] upon DC If patient plan is home with home health TBD : Has signed face to face form been completed? SNF/HH Preference [facility]
--- NOTE | 2023-03-10 15:22 | PT-IP ANOTE ---
Attempted to work with pt twice this date. He firmly but politely refused secondary to pain. Asked for PT to follow up on Friday. Will continue to follow.
--- NOTE | 2023-03-10 16:13 | PM.PN.1 ---
Subjective Subjective Date Patient Seen: 03/10/23 Time Patient Seen: 08:00 Interval history: He says he feels weak. Yesterday he had significant urine output of over 5L. This morning he continued to have brisk urine output, this seems to be slowing this afternoon. No shortness of breath. Exam Vital Signs (past 8 hours): - 03/10/23 08:40 03/10/23 12:15 03/10/23 15:50 Temperature 98.6 F 98.3 F 98.2 F Pulse Rate 89 77 71 Respiratory Rate 16 16 18 Blood Pressure 86/52 L 88/50 L 89/55 L Pulse Oximetry 94 96 93 Oxygen Flow Rate 0 0 0 Oxygen Delivery Method Room Air Oxygen Flow Rate 0 Narrative Exam Narrative: GEN: frail, chronically ill appearing HEENT: dry mucous membranes CV: regular rate and rhythm, no murmurs PULM: clear bilaterally ABD: soft, nontender Objective Labs 03/10/23 01:50 03/10/23 05:45 Labs: Laboratory Results - last 24 hr 03/10/23 03/10/23 03/10/23 01:50 01:50 01:50 WBC 4.6 RBC 2.87 L Hgb 7.6 L Hct 23.1 L MCV 80.4 MCH 26.6 MCHC 33.1 RDW 16.3 H Plt Count 142 L Neut % (Auto) 67.9 Lymph % (Auto) 13.6 L [place] % (Auto) 15.1 H Eos % (Auto) 2.3 Baso % (Auto) 1.1 Neut # (Auto) 3100 Lymph # (Auto) 600 L [place] # (Auto) 700 Eos # (Auto) 100 Baso # (Auto) 100 PT 21.3 H D INR 1.8 H Sodium 127 L Potassium 2.8 L Chloride 89 L Carbon Dioxide 32 BUN 73 H Creatinine 0.91 Estimated GFR > 60 BUN/Creatinine Ratio 80.2 H Glucose 92 Calcium 7.3 L Magnesium 03/10/23 03/10/23 05:45 05:45 WBC RBC Hgb Hct MCV MCH MCHC RDW Plt Count Neut % (Auto) Lymph % (Auto) [place] % (Auto) Eos % (Auto) Baso % (Auto) Neut # (Auto) Lymph # (Auto) [place] # (Auto) Eos # (Auto) Baso # (Auto) PT INR Sodium 130 L Potassium 2.8 L Chloride 92 L Carbon Dioxide 31 BUN 64 H Creatinine 0.84 Estimated GFR > 60 BUN/Creatinine Ratio 76.2 H Glucose 88 Calcium 7.9 L Magnesium 2.4 H PFSH Medical History Asthma BPH w urinary obs/LUTS Chicken pox Chronic anticoagulation Chronic atrial fibrillation Chronic diastolic CHF (congestive heart failure), NYHA class 1 Colon polyps Coronary artery disease Crohn's disease Diverticular disease Easy bruisability Essential hypertension Fractures Hearing loss Hemorrhoid History of colonic polyps History of urinary incontinence (~2018) Measles Mixed hyperlipidemia Mumps Myocardial infarction Obesity Osteoarthritis Positive PPD Primary osteoarthritis involving multiple joints Pulmonary hypertension Right inguinal hernia Tinnitus Vision disorder Surgical History Anesthesia H/O mitral valve replacement (~03/2017) Hx of heart artery stent (~1994) Family History Mother Congestive heart failure Father Coronary artery disease Social History household members: spouse Smoking Status: Never smoker substance use type: does not use Type(s) of exercise: walking frequency: daily Assessment & Plan Assessment & Plan narrative: 1. MIKAYLA, likely ATN -suspect patient had ATN from possible over diuresis -he now seems to have recovered renal function and is urinating briskly suspect post atn diuresis -repeat creatinine already significantly improved -afternoon of 03/10 his urine output started to decrease, stop IVF due to history of CHF -current weight is 143 on admission, one week ago documented as 158 -hold eplerenone, torsemide, metolazone 2. Hypokalemia -secondary to diuresis -recheck potassium frequently -ordered for aggressive replacement -keep on telemetry 3. Acute vertebral compression fracture -keep in TLSO brace as able -not a surgical indication per orthopedics 4. Coagulopathy, history of afib on coumadin -hold coumadin for now -did receive IV vitamin k -no evidence of active bleeding -hold beta-jayashree given soft blood pressures -check INR daily I have discussed plan and obtained history from patient. I have discussed plan of care with ED physician and bedside nurse. CODE: Full Proxy: Italia Murphy,
[2023-03-10 19:43] LABS: BUN Creatinine Ratio 57.1 (6-22); Blood Urea Nitrogen 44 mg/dL (9-20); Calcium 8.4 mg/dL (8.4-10.2); Carbon Dioxide 31 mmol/L (22-32); Chloride 98 mmol/L (98-107); Estimated Glomerular Filt Rate > 60 mL/min (>60); Glucose 107 mg/dL (80-110); HEMOLYSIS < 15 (0-50); Potassium 4.6 mmol/L (3.4-5.1); Sodium 132 mmol/L (137-145)
[2023-03-10] MEDS: SODIUM CHLORIDE 0.9% FLUSH 10 ML IV (21:08)
[2023-03-11 04:00] VITALS: BP 99/58; PULSE 69; RESP 20; TEMP 36.4; O2SAT 95
[2023-03-11 06:13] LABS: Hematocrit 24.4 % (41-53); Hemoglobin 7.9 g/dL (13.5-17.5); Mean Corpuscular HGB Conc 32.5 % (30-36); Mean Corpuscular Hemoglobin 26.3 PG (26-34); Platelet Count 143 X10^3/uL (150-400); Red Blood Cell Count 3.01 X10^6/uL (4.5-5.9); Red Cell Distribution Width 17.2 % (11.6-14.8); White Blood Cell Count 4.4 X10^3/uL (4.5-11.0)
[2023-03-11 06:20] LABS: INR 1.5 (0.9-1.3); Prothrombin Time 17.4 SECONDS (10.1-12.7)
[2023-03-11 06:24] LABS: BUN Creatinine Ratio 49.2 (6-22); Blood Urea Nitrogen 31 mg/dL (9-20); Calcium 8.5 mg/dL (8.4-10.2); Carbon Dioxide 31 mmol/L (22-32); Chloride 99 mmol/L (98-107); Estimated Glomerular Filt Rate > 60 mL/min (>60); Glucose 82 mg/dL (80-110); HEMOLYSIS < 15 (0-50); Potassium 4.1 mmol/L (3.4-5.1); Sodium 134 mmol/L (137-145)
[2023-03-11 07:00] VITALS: BP 94/54; PULSE 69; RESP 17; TEMP 36.4; O2SAT 96
[2023-03-11] MEDS: POTASSIUM CHLORIDE 20 MEQ TAB 40 MEQ PO (09:00)
[2023-03-11] MEDS: HEPARIN 5,000 UNIT/ML VIAL 5000 UNIT SUBCUT (09:04)
[2023-03-11] MEDS: FINASTERIDE 5 MG TABLET PO (09:05)
[2023-03-11] MEDS: SODIUM CHLORIDE 0.9% FLUSH 10 ML IV (09:05)
[2023-03-11] MEDS: TAMSULOSIN 0.4 MG CAPSULE PO (09:05)
[2023-03-11] MEDS: ACETAMINOPHEN 325 MG TABLET 650 MG PO ×2 (09:07→13:58)
--- NOTE | 2023-03-11 09:45 | PT.IPTN ---
Current Diagnoses Acute kidney failure with tubular necrosis (03/09/23) Physical Therapy Treatment Note M2 PT-IP Current Condition Start: 03/09/23 15:38 Freq: NEEDED Status: Active Protocol: Document 03/09/23 14:45 DLM (Rec: 03/09/23 16:00 DLM [id number]) Physical Therapy Current Condition Current Condition Evaluation Date 03/09/23 Treatment Diagnosis L3 burst fracture due to a fall, impaired mobility/gait Onset Date 03/09/23 M3 PT-IP Subjective Start: 03/09/23 15:38 Freq: NEEDED Status: Active Protocol: Document 03/11/23 09:45 DLM (Rec: 03/11/23 13:58 DL [id number]) Subjective Physical Therapy Visit Type Type Treatment Note Visit Start Time 09:00 Visit Stop Time 09:45 Total Visit Minutes 45 Number of CUSTOMER SALES CONSULTANT Visits 0 Physical Therapy Visit Comments Patient Comments He likes his back brace from home better than the new TLSO. He will not wear the TLSO. Patient Goals Discharge home Therapy Pain Assessment Pain When Pain Assessed During Mobility Pain Present Pain Present Pain Reported Location back Intensity 4 Scale Used Numeric (0 - 10) Description Aching,Tender Pain Management Techniques Re-positioning,Timing of Activity with Medications Right Knee Intensity 4 Scale Used Numeric (0 - 10) Description Aching,With Movement Pain Behaviors Guarding Pain Management Techniques Re-positioning,Timing of Activity with Medications M4 PT-IP Mobility and Gait Start: 03/09/23 15:38 Freq: NEEDED Status: Active Protocol: Document 03/11/23 09:45 DLM (Rec: 03/11/23 13:58 DL [id number]) PT-Bed Mobility Assessment Rolling Type of Rolling Log Rolling,Roll to Right Level of Assist Standby Assistance Supine to Sit Supine to Sit Standby Assistance Scooting Scooting to Edge of Bed Independent PT-Transfer Assessment Sit to and From Stand Sit to and from Stand Standby Assistance,Use of Upper Extremities Equipment Transfer Assistive Device Gait Belt,4 Wheeled Walker Transfers Transfer Destination Chair,Bedside Commode Transfer Technique Stand Step Pivot Transfer Ability Level of Assist Standby Assistance,Use of Upper Extremities Comments Mobility Comments He needs safety reminders during mobility for his new spine precautions. Pt needs assist to jairo this lumbar brace in sitting. He refuses to wear the TLSO. His mobility is slow over-all and he moves with caution. Pt up to bedside commode for BM with nursing assist to clean up. Gait Assessment Gait Gait Assistance Required: Standby Assistance Distance (Feet) 150 Assistive Devices Assistive Device Gait Belt,4 Wheeled Walker Gait Deviations General Gait Pattern Antalgic,Decreased Stride Length,Flexed Trunk Factors Limiting Gait Function Factors Limiting Gait Function Decreased Activity Tolerance, Limited Range of Motion,Pain Comments Gait Comments Pt is standing as erect as he can but posture is kyphotic which is greatest in thoracic spine. He will wear the lumbar support from home but refuses to wear the TLSO. He reports good tolerance for the lumbar support today. No light- headedness when up. Pt left up in the recliner after gait. He reports increasing right knee pain duing gait (baseline arthritic pain). His 4WW from home is in his room. Stair Climbing Assessment Comments Stair Climbing Comments ramp at home PT-Balance Assessment Sitting Balance and Reactions Static Sitting Balance Ability Good Dynamic Sitting Balance Ability Good Standing Balance and Reactions Static Standing Balance Ability Good Dynamic Standing Balance Ability Good Device Used 4WW M5 PT-IP Objective Assessments Start: 03/09/23 15:38 Freq: NEEDED Status: Active Protocol: Document 03/09/23 14:45 DLM (Rec: 03/09/23 16:00 DLM [id number]) Orientation Orientation/Cognition Level of Alertness Alert Orientation Name,Age,Birthday,Month,Date, Year,Day of Week,Place, Situation Language Function Ability Hard of Hearing Safety Awareness Decreased Safety Awareness Memory Description Short Term Impaired Comments he is open to education about safety issues and his new precautions, he is cooperative and shows good effort with therapy Gross Range of Motion Upper Extremity ROM Assessment Within Functional Limits Lower Extremity ROM Assessment Within Functional Limits Impairments pain right knee Strength Upper Extremity Strength Assessment Within Functional Limits Lower Extremity Strength Assessment Right Impaired Knee pain limits functional strength, TKA scheduled for Comments Strength Comments trunk ROM and strength limited by back pain and precautions Coordination Assessment Gross Coordination Gross Coordination WNL Sensation Assessment Sensation Gross Sensation WNL Comments Sensation Comments no changes reports since his fall Muscle Tone Muscle Tone WNL Yes M6 PT-IP Treatment Start: 03/09/23 15:38 Freq: NEEDED Status: Active Protocol: Document 03/11/23 09:45 DLM (Rec: 03/11/23 13:58 DLM [id number]) Physical Therapy Treatment Education Education Provided Precautions,Safety Other Treatments Other Treatment Performed educated pt in spine precautions and provided written material to assist with education, he appears to have decreased recall of education from prior visits M7 PT-IP Assessment and Plan Start: 03/09/23 15:38 Freq: NEEDED Status: Active Protocol: Document 03/11/23 09:45 [id number] (Rec: 03/11/23 13:58 DLM [id number]) PT Summary Assessment and Plan Summary Impairments Pain,ROM,Strength,Balance,Bed Mobility,Transfers,Gait, Activity Tolerance Progress Towards Goals Slow Progress due to Pain Assessment Summary Destin is alert and agreed to participate in physical therapy. He tolerated gait in the olguin well this visit with his 4WW and his lumbar back brace. Pt is refusing to wear the TLSO. He needs verbal cues to use spine precautions during mobility. Pt left up in recliner this visit. Will need to do training with his family before discharge. Goals Bed Mobility Goal Independent Transfer Goal Independent,Front Wheeled Walker,Four Wheeled Walker Gait Goal Standby Assistance,Front Wheel Walker,Four Wheel Walker Gait Distance 150 feet Other Goals Patient/family independent with management of TLSO Days to Meet Goals 2 Frequency of Treatment Frequency Of Treatment Twice a Day Treatment Plan Physical Therapy Treatment Plan Bed Mobility Training,Transfer Training,Gait Training, Therapeutic Exercise,Balance Retraining,Discharge Planning, Hot or Cold Pack Other Recommendations and Next Treatment education with family for back Focus brace and spine precautions to assist him at home Precautions Lumbar Precautions Log Roll,No Twisting,Limit Bending,Lifting Restriction of 10 lbs Other Precautions low BP today, wear back brace (TLSO ordered) when up moving Recommendations To Nursing Amount of Assist Needed 1 Person Assist Discharge Recommendations PT Discharge Recommendations Home with Assistance,Home Health Transportation Needs at Discharge Private Vehicle
--- NOTE | 2023-03-11 10:47 | PT-IP ANOTE ---
Called Dr Wu's office and requested an Occupational Therapy order for ADL training with new L3 burst fracture, spine precautions and new back brace. Message was left with his office.
--- NOTE | 2023-03-11 12:15 | PM.DS.1 ---
History of Present Illness History of Present Illness Date Patient Seen: 03/11/23 Time Patient Seen: 09:35 Chief complaint: Back Pain Narrative: Per admitting provider, Mr. Powell is an 82M with PMH CHFpEF, CAD, afib who presents to the hospital with a fall. He states he has been somewhat dehydrated. He had recently been diuresed quite significantly. Apparently he once weight over 200lbs, he was seen by cardiology group about a week ago and weighed 158, today on admit he weighs 143lbs. He has been treated with 100mg torsemide, 2.5mg metolazone, and he has been on eplerenone. He also was recently prescribed levofloxacin. He notes he was in the shower and slipt and fell. He felt his legs were weak. He did not feel lightheaded or dizzy. He had back pain after so he presented to the hospital. In the ED workup was done and vitals notable for afebrile, heart rate 60s, blood pressure 110s/50s, sats 99% on room air. Labs reviewed by me and notable for WBC 8.4, hgb 8.8, plts 177. Na 125, K 3.1, BUN 119, creatinine 1.77. INR 8.1. CT cspine reviewed and notable for L3 burst fracture. Ortho consulted and recommended TLSO brace. Per the ED note, the tele-drain technician, Dr. Salgado, was notified and per ED note Dr. Salgado asked if the ED physician could wait and contact the daytime hospitalist for admission. I noted the patient was urinating quite briskly with no diuretics ordered and admitted the patient. Discharge Providers Provider Date of admission: 03/09/23 07:21 Discharge Date: 03/11/23 Primary care physician: Barrera Roth MD Consults: 03/09/23 09:59 Consult to Physical Therapy Evaluate & Treat Comment: Physician Instructions: Evaluate and Treat Discharge provider: Aniket Pedro DO Summary Hospital Course Discharge Diagnosis: 1. MIKAYLA, likely ATN 2. Hypokalemia 3. Acute vertebral compression fracture 4. Coagulopathy, chronic afib on coumadin 5. Chronic diastolic heart failure Hospital Course: This is an 82 year old male admitted after a fall with MIKAYLA and a vertebral compression fracture. MIKAYLA was likley due to over diuresis one 3 diuretic medications including eplerenone, torsemide, and metolazone. His diuretics were held and his potassium was repleted aggressively requiring massive amounts. His creatinine returned to normal with diuretics held. He had high urine output with return of renal function, a post ATN diuresis. This improved prior to discharge. At discharge, his torsemide was held but he can resume eplerenon and metolazone to maintain euvolemia. Repeat follow up with primary care to monitor diuretic therapy after discharge. Time Spent with Patient Time spent: Greater than 30 minutes Exam Vital Signs (past 8 hours): - 03/11/23 07:00 Temperature 97.6 F Pulse Rate 69 Respiratory Rate 17 Blood Pressure 94/54 L Pulse Oximetry 96 Oxygen Flow Rate 0 Oxygen Delivery Method Room Air Oxygen Flow Rate 0 Narrative Exam Narrative: GEN: frail, chronically ill appearing HEENT: dry mucous membranes CV: regular rate and rhythm, no murmurs PULM: clear bilaterally ABD: soft, nontender Objective Labs 03/11/23 06:05 03/11/23 06:05 Labs: Laboratory Results - last 24 hr 03/10/23 03/11/23 03/11/23 19:25 06:05 06:05 WBC 4.4 L RBC 3.01 L Hgb 7.9 L Hct 24.4 L MCV 81.0 MCH 26.3 MCHC 32.5 RDW 17.2 H Plt Count 143 L PT INR Sodium 132 L 134 L Potassium 4.6 D 4.1 Chloride 98 99 Carbon Dioxide 31 31 BUN 44 H 31 H Creatinine 0.77 0.63 L Estimated GFR > 60 > 60 BUN/Creatinine Ratio 57.1 H 49.2 H Glucose 107 82 Calcium 8.4 8.5 03/11/23 06:05 WBC RBC Hgb Hct MCV MCH MCHC RDW Plt Count PT 17.4 H INR 1.5 H Sodium Potassium Chloride Carbon Dioxide BUN Creatinine Estimated GFR BUN/Creatinine Ratio Glucose Calcium [facility] Medical History Asthma BPH w urinary obs/LUTS Chicken pox Chronic anticoagulation Chronic atrial fibrillation Chronic diastolic CHF (congestive heart failure), NYHA class 1 Colon polyps Coronary artery disease Crohn's disease Diverticular disease Easy bruisability Essential hypertension Fractures Hearing loss Hemorrhoid History of colonic polyps History of urinary incontinence (~2018) Measles Mixed hyperlipidemia Mumps Myocardial infarction Obesity Osteoarthritis Positive PPD Primary osteoarthritis involving multiple joints Pulmonary hypertension Right inguinal hernia Tinnitus Vision disorder Surgical History Anesthesia H/O mitral valve replacement (~03/2017) Hx of heart artery stent (~1994) Family History Mother Congestive heart failure Father Coronary artery disease Social History household members: spouse Smoking Status: Never smoker substance use type: does not use Type(s) of exercise: walking frequency: daily Discharge Plan Discharge Plan Patient Disposition: Home Health Service Provider Discharge Comment: You were admitted to the hospital with weakness and back pain after a fall. You had a fracture that is managed conservatively with a back brace. Your home diuretic medications were held during admission, you can resume some of these but torsemide is being held for now. Continue to check in with your primary care provider for further management of diuretic pain medications. Discharge orders & Medications Prescriptions: Continued albuterol sulfate [Proventil HFA] 90 MCG/PUFF HFA aerosol inhaler 2 puff INH PRN PRN (Reason: Shortness Of Breath) Qty: 0 mesalamine [Pentasa] 500 MG capsule, extended release 1,000 mg PO BID Qty: 0 calcium carbonate-vitamin D3 500 mg-2.5 mcg (100 unit) Tablet,Chewable 3 tab PO DAILY Qty: 0 tamsulosin 0.4 mg capsule 0.4 mg PO DAILY Qty: 90 3RF eplerenone 50 mg tablet 50 mg PO DAILY Qty: 90 3RF simvastatin 40 mg tablet 20 mg PO BEDTIME fluticasone propionate 50 mcg/actuation spray,suspension 1 spray intranasal DAILY PRN (Reason: allergy symptoms) acetaminophen 325 mg tablet 650 mg PO Q4H PRN (Reason: Pain) alfuzosin 10 mg tablet extended release 24 hr 10 mg PO DAILY Rx Instructions: administer after the same meal each day ascorbic acid (vitamin C) 500 mg tablet 500 mg PO DAILY omeprazole 20 mg tablet,delayed release (DR/EC) 20 mg PO DAILY [id number] Ointment 1 ea topical DAILY PRN (Reason: Skin Irritation) warfarin 5 mg tablet See Rx Instructions .ROUTE .COMPLEX Qty: 90 3RF Rx Instructions: 5mg MWF and 2.5mg all other days, or as directed. metolazone 2.5 mg tablet 2.5 mg PO DAILY Qty: 90 3RF ferrous sulfate 325 mg (65 mg iron) Tablet 325 mg PO BID nitroglycerin [Nitrostat] 0.4 mg Tablet, Sublingual 0.4 mg SUBLINGUAL Q5-15M PRN (Reason: Chest Pain) folic acid 1 mg Tablet 1 mg PO DAILY finasteride 5 mg Tablet 5 mg PO DAILY loratadine 10 mg Tablet 10 mg PO DAILY isosorbide mononitrate 60 mg Tablet Extended Release 24 Hr 60 mg PO DAILY potassium chloride 20 mEq Tablet Extended Release 20 meq PO TID carvedilol 12.5 mg Tablet 12.5 mg PO BID Rx Instructions: must administer with a meal/food Discontinued amoxicillin-pot clavulanate 875-125 mg tablet 1 tab PO BID Qty: 20 0RF levofloxacin 500 mg tablet 500 mg PO DAILY Qty: 7 0RF torsemide 100 mg tablet 100 mg PO DAILY Qty: 90 3RF eplerenone 50 mg tablet 50 mg PO DAILY Follow up/Referrals: Barrera Roth MD [Primary Care Provider] - 1 Week Diet/Activity/Treatments Diet: Diet as Tolerated and Low-sodium Activity: As tolerated, no restrictions, wear brace as much as possible Visit Report/Discharge Packet Stand Alone Forms: Patient Portal/API, Stroke Signs & Symptoms Discharge Data Primary Care Provider: Barrera Roth V Discharges patient from system. Discharge Date/Time: 03/11/23 14:00 Quality MIPS - DC The patient has a history of heart transplant or Left Ventricular Assist Device (LVAD). If yes, STOP here.: No The patient has current or prior documentation of left ventricular ejection fraction (LVEF) less than or equal to 40%, or moderate or severely depressed left ventricular systolic function.: No
--- NOTE | 2023-03-11 13:06 | ONC.MSW ---
DCP Cont. Reviewed chart for d/c plan updates. Pt will work with OT later today for ADL training, spinal precautions. and new back brace. PULLMAN CAR CLERK placed order for resumption of HH services w/[employer]. Will fax clinicals once available. Plan is for d/c home today w/family providing care, transport by family. No further d/c needs identified at this time.
--- NOTE | 2023-03-11 13:40 | PT.IPTN ---
Current Diagnoses Acute kidney failure with tubular necrosis (03/09/23) Physical Therapy Treatment Note M2 PT-IP Current Condition Start: 03/09/23 15:38 Freq: NEEDED Status: Active Protocol: Document 03/09/23 14:45 DLM (Rec: 03/09/23 16:00 DL [id number]) Physical Therapy Current Condition Current Condition Evaluation Date 03/09/23 Treatment Diagnosis L3 burst fracture due to a fall, impaired mobility/gait Onset Date 03/09/23 M3 PT-IP Subjective Start: 03/09/23 15:38 Freq: NEEDED Status: Active Protocol: Document 03/11/23 13:40 DLM (Rec: 03/11/23 14:07 DL [id number]) Subjective Physical Therapy Visit Type Type Treatment Note Visit Start Time 13:10 Visit Stop Time 13:40 Total Visit Minutes 30 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 He will not wear the TLSO. Patient Goals Discharge home Therapy Pain Assessment Pain When Pain Assessed During Mobility Pain Present Pain Present Pain Reported Location back Intensity 5 Scale Used Numeric (0 - 10) Description Aching,Tender Pain Behaviors Facial Grimacing Pain Management Techniques Re-positioning,Timing of Activity with Medications Right Knee Intensity 4 Scale Used Numeric (0 - 10) Description Aching,With Movement Pain Behaviors Guarding Pain Management Techniques Re-positioning,Timing of Activity with Medications M4 PT-IP Mobility and Gait Start: 03/09/23 15:38 Freq: NEEDED Status: Active Protocol: Document 03/11/23 13:40 DLM (Rec: 03/11/23 14:07 DL [id number]) PT-Transfer Assessment Sit to and From Stand Sit to and from Stand Standby Assistance,Use of Upper Extremities Equipment Transfer Assistive Device Gait Belt,4 Wheeled Walker Transfers Transfer Destination Chair,Toilet Transfer Technique Stand Step Pivot Transfer Ability Level of Assist Standby Assistance,Use of Upper Extremities Comments Mobility Comments He needs safety reminders during mobility for his new spine precautions. Pt had small BM this visit on the toilet. Gait Assessment Gait Gait Assistance Required: Standby Assistance Distance (Feet) 30 Assistive Devices Assistive Device Gait Belt,4 Wheeled Walker Gait Deviations General Gait Pattern Antalgic,Decreased Stride Length,Flexed Trunk Factors Limiting Gait Function Factors Limiting Gait Function Decreased Activity Tolerance, Limited Range of Motion,Pain Comments Gait Comments Pt is standing as erect as he can but posture is kyphotic which is greatest in thoracic spine. He will wear the lumbar support from home but refuses to wear the TLSO. He reports good tolerance for the lumbar support today. No light- headedness when up. Pt left up in the recliner after gait. He reports increasing right knee pain duing gait (baseline arthritic pain). His 4WW from home is in his room. Stair Climbing Assessment Comments Stair Climbing Comments ramp at home PT-Balance Assessment Sitting Balance and Reactions Static Sitting Balance Ability Good Dynamic Sitting Balance Ability Good Standing Balance and Reactions Static Standing Balance Ability Good Dynamic Standing Balance Ability Good Device Used 4WW M5 PT-IP Objective Assessments Start: 03/09/23 15:38 Freq: NEEDED Status: Active Protocol: Document 03/09/23 14:45 DLM (Rec: 03/09/23 16:00 DLM [id number]) Orientation Orientation/Cognition Level of Alertness Alert Orientation Name,Age,Birthday,Month,Date, Year,Day of Week,Place, Situation Language Function Ability Hard of Hearing Safety Awareness Decreased Safety Awareness Memory Description Short Term Impaired Comments he is open to education about safety issues and his new precautions, he is cooperative and shows good effort with therapy Gross Range of Motion Upper Extremity ROM Assessment Within Functional Limits Lower Extremity ROM Assessment Within Functional Limits Impairments pain right knee Strength Upper Extremity Strength Assessment Within Functional Limits Lower Extremity Strength Assessment Right Impaired Knee pain limits functional strength, TKA scheduled for Comments Strength Comments trunk ROM and strength limited by back pain and precautions Coordination Assessment Gross Coordination Gross Coordination WNL Sensation Assessment Sensation Gross Sensation WNL Comments Sensation Comments no changes reports since his fall Muscle Tone Muscle Tone WNL Yes M6 PT-IP Treatment Start: 03/09/23 15:38 Freq: NEEDED Status: Active Protocol: Document 03/11/23 13:40 DLM (Rec: 03/11/23 14:07 DLM [id number]) Physical Therapy Treatment Education Education Provided Precautions,Safety Brace Education [place],Patient, Caregiver Other Treatments Other Treatment Performed Educated pt, his Granddaughter and his in spine precautions and provided written material to assist with education. He appears to have decreased recall of education from prior visits. His verbalizes his awareness of his decreased memory. His Granddaughter reports she can assist him with dressing to assist in spine precautions. The family is familiar with his back brace since he has worn it at home in the past. M7 PT-IP Assessment and Plan Start: 03/09/23 15:38 Freq: NEEDED Status: Active Protocol: Document 03/11/23 13:40 DLM (Rec: 03/11/23 14:07 DLM [id number]) PT Summary Assessment and Plan Summary Impairments Pain,ROM,Strength,Balance,Bed Mobility,Transfers,Gait, Activity Tolerance Progress Towards Goals Progressing Toward Goals,Safe For Discharge Assessment Summary His and Granddaughter were present this visit and participated in education/ training for his new spine precautions. They are supportive and will be able to assist him with safety reminders and his Granddaughter can assist with dressing. Pt has his lumbar back brace on and is tolerating it well. He appears to be safe to discharge home with family assist and home health PT today when medically cleared. His nurse was notified. Goals Bed Mobility Goal Independent Transfer Goal Independent,Front Wheeled Walker,Four Wheeled Walker Gait Goal Standby Assistance,Front Wheel Walker,Four Wheel Walker Gait Distance 150 feet Other Goals Patient/family independent with management of TLSO Days to Meet Goals 2 Frequency of Treatment Frequency Of Treatment Discharge Treatment Plan Other Recommendations and Next Treatment anticipate pt will discharge [facility] home later today Precautions Lumbar Precautions Log Roll,No Twisting,Limit Bending,Lifting Restriction of 10 lbs Other Precautions low BP today, wear back brace (TLSO ordered) when up moving Recommendations To Nursing Amount of Assist Needed 1 Person Assist Discharge Recommendations PT Discharge Recommendations Home with Assistance,Home Health Transportation Needs at Discharge Private Vehicle
--- NOTE | 2023-03-11 13:51 | CM.DPC ---
DCP Cont. D/C summary and orders completed. Called [facility] and confirmed that they will be calling family to resume services in the next few days. Clinicals faxed. Family here to transport pt home. No further d/c needs indicated at this time.
[2023-03-11 14:00] VITALS: BP 101/56; PULSE 76; RESP 18; TEMP 36.4; O2SAT 94
--- NOTE | 2023-03-11 14:05 | PC.NURSE ---
Patient is A&Ox2-3, Very [place]. Hearing aids in place. He has lumbar brace in place. PT working with patient and requests to do caregiver training this afternoon with and dolores. MD at bedside this a.m. medically clearing patient for discharge home with Home Health. Patient reports pain to back is well controlled. He calls appropriately for assistance. He denies dizziness, noted soft BP's. Patient denies dizziness. He has a 6 beat run of Vtach while sleeping in bed. VSS, asymptomatic. MD notified, no new orders. Patient tolerates training well this afternoon. at bedside, patient and dolores verbalize understanding of checking Blood pressure at home before patient takes BP medications. They verbalize stopping the torsemide and po antibiotics and scheduling a follow up appointment with MD Peck within 1 week. He is escorted to private vehicle with family for discharge home at 2 p.m. with all of his belongings including hearing aids, and two back braces, as well as his clothing and shoes.
== END 2023-03-11 14:00 | disposition home health service (06) | DRG 683 ==
LOC: ED 05:30 → AC 07:22
PROVIDERS: Admitting Provider Internal Medicine; Emergency Provider Emergency Medicine; PCP Internal Medicine; Referring Provider Emergency Medicine; Visit Provider Internal Medicine
DX: N17.0 Acute kidney failure with tubular necrosis (principal); D68.9 Coagulation defect, unspecified; S32.039A Unspecified fracture of third lumbar vertebra, initial encounter for closed fracture; I48.20 Chronic atrial fibrillation, unspecified; I50.32 Chronic diastolic (congestive) heart failure; N40.0 Benign prostatic hyperplasia without lower urinary tract symptoms; I11.0 Hypertensive heart disease with heart failure; E87.6 Hypokalemia; W18.2XXA Fall in (into) shower or empty bathtub, initial encounter; Z79.01 Long term (current) use of anticoagulants
CPT/HCPCS: 36415; 70450; 72131; 73562; 80048; 80053; 81003; 83735; 85025; 85027; 85610; 85730; 93005; 93010; 96365; 97116; 97162; 97530; 99285; J1644; J3430

== ENCOUNTER 2023-03-13 20:27 | Emergency (ER) | payer MEDICARE, OTHER, SELFPAY ==
[2023-01-17 02:34] VITALS: PULSE 75; RESP 37; O2SAT 94
[2023-03-09 15:46] VITALS: BMI 26.3
[2023-03-13] VITALS (7 sets, daily range): BP systolic 103–135; BP diastolic 56–78; PULSE 47–58; RESP 16–29; O2SAT 87–97; BMI 28.3
--- NOTE | 2023-03-13 21:45 | ED_ITS ---
HPI - Back Pain/Injury General Chief Complaint: Back Pain/Injury Stated Complaint: GLF Time Seen by Provider: 03/13/23 21:38 Source: patient and EMS Mode of arrival: EMS History of Present Illness HPI Narrative: 82-year-old male who is here for evaluation of potential injuries that he sustained when he states he fell off of his toilet. He was in a seated position of the time. He did not hit his head. No loss of consciousness. He is on anticoagulation. He is had multiple falls recently. During my evaluation his only discomfort was in his right knee. He states he hit his right knee when he fell. He states he has been told that he needs surgery on his right knee. He is seen an orthopedic doctor but nothing is scheduled up this point. He has been falling quite a bit recently and he is concerned about these falls. He denied any back pain to me during my exam. Related Data Home Medications Medication Instructions Recorded Confirmed albuterol sulfate 90 mcg/actuation 2 puff INH PRN PRN Shortness Of 03/22/17 02/25/23 aerosol inhaler (Proventil HFA) Breath ##0 mesalamine 500 mg capsule,extended 1,000 mg PO BID ##0 03/24/17 02/25/23 release (Pentasa) calcium carbonate 500 mg-vitamin 3 tab PO DAILY ##0 03/31/17 02/25/23 D3 2.5 mcg (100 unit) chewable tablet ferrous sulfate 325 mg (65 mg 325 mg PO BID 05/18/18 02/25/23 iron) tablet finasteride 5 mg tablet 5 mg PO DAILY 05/18/18 03/09/23 folic acid 1 mg tablet 1 mg PO DAILY 05/18/18 03/09/23 loratadine 10 mg tablet 10 mg PO DAILY 05/18/18 02/25/23 nitroglycerin 0.4 mg sublingual 0.4 mg sublingual Q5-15M PRN Chest 05/18/18 02/25/23 tablet (Nitrostat) Pain simvastatin 40 mg tablet 20 mg PO BEDTIME 12/07/21 03/09/23 fluticasone propionate 50 1 spray intranasal DAILY PRN 02/07/22 02/25/23 mcg/actuation nasal allergy symptoms spray,suspension acetaminophen 325 mg tablet 650 mg PO Q4H PRN Pain 04/24/22 02/25/23 alfuzosin 10 mg tablet,extended 10 mg PO DAILY 04/24/22 03/09/23 release 24 hr ascorbic acid (vitamin C) 500 mg 500 mg PO DAILY 04/24/22 02/25/23 tablet neomycin-polymyxin 1 ea topical DAILY PRN Skin 04/24/22 02/25/23 T-spwgikcbrk-rhplhezvqhreye top Irritation ointment omeprazole 20 mg tablet,delayed 20 mg PO DAILY 04/24/22 02/25/23 release carvedilol 12.5 mg tablet 12.5 mg PO BID 01/13/23 03/09/23 isosorbide mononitrate 60 mg 60 mg PO DAILY 01/13/23 03/09/23 tablet,extended release 24 hr potassium chloride 20 mEq 20 meq PO TID 01/13/23 03/09/23 tablet,extended release Previous Rx's Medication Instructions Recorded metolazone 2.5 mg tablet 2.5 mg PO DAILY #90 tabs 02/25/23 warfarin 5 mg tablet See Rx Instructions .Route 02/25/23 .COMPLEX #90 tabs eplerenone 50 mg tablet 50 mg PO DAILY #90 tabs 03/04/23 tamsulosin 0.4 mg capsule 0.4 mg PO DAILY #90 caps 03/04/23 Allergies Allergy/AdvReac Type Severity Reaction Status Date / Time ibuprofen Allergy Mild NOT GOOD Verified 02/25/23 14:40 FOR STOMACH BLEEDING iodine Allergy Mild UNKNOWN Verified 02/25/23 14:40 Sulfa (Sulfonamide Allergy Mild BURNED A Verified 02/25/23 14:40 Antibiotics) HOLE THRU INTESTINES thallium-201 Allergy Mild BREAKS OUT Verified 02/25/23 14:40 IN BLOTCHES AND ITCHING terazosin Allergy Hypotension Verified 02/25/23 14:40 spironolactone AdvReac Verified 02/25/23 14:40 Review of Systems Constitutional Constitutional: Reports system reviewed and no additional complaints, except as documented Musculoskeletal Musculoskeletal: Reports system reviewed and no additional complaints, except as documented Integumentary/Breasts Skin/Breast: Reports system reviewed and no additional complaints, except as documented Neurologic Neurologic: Reports system reviewed and no additional complaints, except as documented Hematologic/Lymphatic On Anticoagulants: Yes Patient History Medical History Asthma BPH w urinary obs/LUTS Chicken pox Chronic anticoagulation Chronic atrial fibrillation Chronic diastolic CHF (congestive heart failure), NYHA class 1 Colon polyps Coronary artery disease Crohn's disease Diverticular disease Easy bruisability Essential hypertension Fractures Hearing loss Hemorrhoid History of colonic polyps History of urinary incontinence (~2018) Measles Mixed hyperlipidemia Mumps Myocardial infarction Obesity Osteoarthritis Positive PPD Primary osteoarthritis involving multiple joints Pulmonary hypertension Right inguinal hernia Tinnitus Vision disorder Surgical History Anesthesia H/O mitral valve replacement (~03/2017) Hx of heart artery stent (~1994) Family History Mother Congestive heart failure Father Coronary artery disease Social History household members: spouse Smoking Status: Never smoker substance use type: does not use Type(s) of exercise: walking frequency: daily Smoking Status: Never smoker alcohol intake frequency: holidays/special occasions only Substance Use Type: does not use Exam Initial Vital Signs Initial Vital Signs: Vital Signs Pulse Rate 47 L 03/13/23 20:32 Blood Pressure 103/56 L 03/13/23 20:32 Pulse Oximetry 97 03/13/23 20:32 Oxygen Delivery Method Room Air 03/13/23 20:32 HENMT Head: normal to inspection and normocephalic Back/Spine/Pelvis Thoracic/Lumbar Spine: No paraspinal tenderness, No thoracic spinal tenderness and No lumbar spinal tenderness Neuro General: patient alert, patient awake, patient oriented x3 and moves all extremities Extrem Other: Large effusion right knee. Course Orders Ordered: ED Orders 03/13/23 21:45 XR knee RT 3V Stat Vital Signs Vital signs: Vital Signs - 8 hr 03/13/23 20:32 03/13/23 20:35 03/13/23 21:58 Pulse Rate 47 L 50 L 48 L Respiratory Rate 16 23 Blood Pressure 103/56 L Blood Pressure [Right Arm] 103/56 L Pulse Oximetry 97 87 L Oxygen Delivery Method Room Air Room Air 03/13/23 22:00 03/13/23 22:02 03/13/23 22:02 Pulse Rate 47 L 48 L Respiratory Rate 29 H 26 H Blood Pressure 135/70 Blood Pressure [Right Arm] Pulse Oximetry 96 93 Oxygen Delivery Method 03/13/23 22:30 03/13/23 22:30 03/13/23 23:00 Pulse Rate 48 L Respiratory Rate 24 Blood Pressure 112/69 129/78 Blood Pressure [Right Arm] Pulse Oximetry 92 Oxygen Delivery Method 03/13/23 23:00 Pulse Rate 58 L Respiratory Rate 24 Blood Pressure Blood Pressure [Right Arm] Pulse Oximetry 97 Oxygen Delivery Method MDM - Back Pain/Injury Imaging Data Extremity x-ray #1: Radiologist's Impression: PROCEDURE:? XR KNEE RT 3V ? INDICATIONS:? r knee injury after fall ? TECHNIQUE:? 3 views of the knee were acquired.? ? COMPARISON:? [facility], CR, XR KNEE RT 3V, 03/09/2023, 3:03. ? FINDINGS:? ? Bones:? No fractures or dislocations.? Visualized osseous structures appear osteopenic.? Severe joint space narrowing demonstrated in the medial and lateral compartments as well as the patellofemoral compartment with subchondral sclerosis and cystic changes.? There is lateral migration of the tibia with respect to the femur again noted. ? Soft tissues:? There is a moderate joint effusion.? No suspicious soft tissue calcifications.? ? ? IMPRESSION:? ? 1.? No definite acute fracture or dislocation. ? 2. Severe osteoarthritic changes of the right knee redemonstrated. ? 3. Moderate joint effusion. [facility] Narrative Medical decision making narrative: He does have a large effusion in his right knee however the x-ray is very similar to prior x-rays and shows no acute fractures or dislocations. He denied any back pain to myself and had no back pain with palpation. He is able to flex and extend at both hips. I had a long discussion with the patient regarding his symptoms. He was under the assumption that he would be admitted to the hospital this evening so that he could have surgery done on his knee in his hip in his back. He stated that he ?just wants to get it all taken care of? advised him that this was not going to be possible out of the emergency department today. He has seen an orthopedic doctor in the past but not 1 of our local orthopedic surgeons. I asked if he would talked with the orthopedic doctor about surgery and he stated that the doctor told him that he needed surgery but that was several weeks/months ago. I asked if he would ever followed up with the provider and he said no. I told him that I do not doubt that he needs surgery for his right knee given the amount of arthritis seen on the x-ray but this would have to be done as an outpatient. I told him that if he felt unsafe at home that he could stay here in the emergency department and we did have social work see him and discuss about other living situation such as long-term facility or home health or rehab however the patient states he was not interested in this. He then became somewhat agitated that he was not being admitted to the hospital. He stated that he would just like to go home. We will discharge the patient home and he was advised that he needed to follow-up with his orthopedic surgeon and talk with his primary doctor. Discharge Plan Departure Patient Disposition: Home Clinical Impression: Knee pain, Hip pain Instructions: How to Prevent Falls, DI for Arthritis Activity Restrictions/Additional Instructions: Unfortunately which you are asking is not possible out in the emergency department. I have no doubt that surgery would be helpful given the way that your right knee looks on the x-ray however there are no fractures noted today however this is not something that we can admit you for out of the emergency department to have completed this evening. I do recommend that you contact the orthopedic doctor who you have been seeing to discuss having surgery. Your most likely going to need clearance by your primary doctor to have surgery as well. Continue to take all of your medications as directed. Prescriptions: No Action albuterol sulfate [Proventil HFA] 90 MCG/PUFF HFA aerosol inhaler 2 puff INH PRN PRN (Reason: Shortness Of Breath) Qty: 0 mesalamine [Pentasa] 500 MG capsule, extended release 1,000 mg PO BID Qty: 0 calcium carbonate-vitamin D3 500 mg-2.5 mcg (100 unit) Tablet,Chewable 3 tab PO DAILY Qty: 0 tamsulosin 0.4 mg capsule 0.4 mg PO DAILY Qty: 90 3RF eplerenone 50 mg tablet 50 mg PO DAILY Qty: 90 3RF simvastatin 40 mg tablet 20 mg PO BEDTIME fluticasone propionate 50 mcg/actuation spray,suspension 1 spray intranasal DAILY PRN (Reason: allergy symptoms) acetaminophen 325 mg tablet 650 mg PO Q4H PRN (Reason: Pain) alfuzosin 10 mg tablet extended release 24 hr 10 mg PO DAILY Rx Instructions: administer after the same meal each day ascorbic acid (vitamin C) 500 mg tablet 500 mg PO DAILY omeprazole 20 mg tablet,delayed release (DR/EC) 20 mg PO DAILY [id number] Ointment 1 ea topical DAILY PRN (Reason: Skin Irritation) warfarin 5 mg tablet See Rx Instructions .ROUTE .COMPLEX Qty: 90 3RF Rx Instructions: 5mg MWF and 2.5mg all other days, or as directed. metolazone 2.5 mg tablet 2.5 mg PO DAILY Qty: 90 3RF ferrous sulfate 325 mg (65 mg iron) Tablet 325 mg PO BID nitroglycerin [Nitrostat] 0.4 mg Tablet, Sublingual 0.4 mg SUBLINGUAL Q5-15M PRN (Reason: Chest Pain) folic acid 1 mg Tablet 1 mg PO DAILY finasteride 5 mg Tablet 5 mg PO DAILY loratadine 10 mg Tablet 10 mg PO DAILY isosorbide mononitrate 60 mg Tablet Extended Release 24 Hr 60 mg PO DAILY potassium chloride 20 mEq Tablet Extended Release 20 meq PO TID carvedilol 12.5 mg Tablet 12.5 mg PO BID Rx Instructions: must administer with a meal/food Referrals: Barrera Roth MD [Primary Care Provider] - Stand Alone Forms: Patient Portal/API
--- NOTE | 2023-03-13 21:45 | DI.RAD.S_ITS ---
PROCEDURE: XR KNEE RT 3V INDICATIONS: r knee injury after fall TECHNIQUE: 3 views of the knee were acquired. COMPARISON: [facility], , XR KNEE RT 3V, 03/09/2023, 3:03. FINDINGS: Bones: No fractures or dislocations. Visualized osseous structures appear osteopenic. Severe joint space narrowing demonstrated in the medial and lateral compartments as well as the patellofemoral compartment with subchondral sclerosis and cystic changes. There is lateral migration of the tibia with respect to the femur again noted. Soft tissues: There is a moderate joint effusion. No suspicious soft tissue calcifications. IMPRESSION: 1. No definite acute fracture or dislocation. 2. Severe osteoarthritic changes of the right knee redemonstrated. 3. Moderate joint effusion. Dictated by: Zechariah Solis M.D. on 03/13/2023 at 23:35 Approved by: Zechariah Solis M.D. on 03/13/2023 at 23:44
== END 2023-03-13 23:46 | disposition home or self-care (01) ==
PROVIDERS: Emergency Provider Emergency Medicine; PCP Internal Medicine
DX: M25.561 Pain in right knee (principal); M25.551 Pain in right hip; W18.11XA Fall from or off toilet without subsequent striking against object, initial encounter
CPT/HCPCS: 73562; 99281; 99283

== ENCOUNTER → 2023-03-20 11:08 | Outpatient (CLI) | payer MEDICARE, OTHER, SELFPAY ==
[2023-01-17 02:34] VITALS: PULSE 75; RESP 37; O2SAT 94
[2023-03-09 15:46] VITALS: BMI 26.3
[2023-03-20 11:44] LABS: Hematocrit 25.5 % (41-53); Hemoglobin 8.2 g/dL (13.5-17.5); Mean Corpuscular HGB Conc 32.2 % (30-36); Mean Corpuscular Hemoglobin 25.6 PG (26-34); Mean Corpuscular Volume 79.6 fL (80-100); Platelet Count 174 X10^3/uL (150-400); Red Blood Cell Count 3.21 X10^6/uL (4.5-5.9); Red Cell Distribution Width 17.3 % (11.6-14.8)
[2023-03-20 12:21] LABS: Iron 52 ug/dL (49-181)
[2023-03-20 12:22] LABS: Alanine Aminotransferase 22 IU/L (<50); Albumin 3.5 g/dL (3.5-5.0); Albumin Globulin Ratio 1.4 (1.0-2.8); Alkaline Phosphatase 99 U/L (38-126); Aspartate Aminotransferase 37 IU/L (17-59); BUN Creatinine Ratio 60.7 (6-22); Bilirubin Total 0.7 mg/dL (0.2-1.3); Blood Urea Nitrogen 37 mg/dL (9-20); Calcium 9.1 mg/dL (8.4-10.2); Chloride 85 mmol/L (98-107); Estimated Glomerular Filt Rate > 60 mL/min (>60); Globulin 2.5 g/dL (1.7-4.1); Glucose 95 mg/dL (80-110); HEMOLYSIS 15 (0-50); Sodium 131 mmol/L (137-145)
[2023-03-20 12:32] LABS: Percent Iron Saturation 14 % (20-50); Total Iron Binding Capacity 368 ug/dL (261-462); Transferrin 259 mg/dL (206-381)
[2023-03-20 12:40] LABS: Carbon Dioxide 40 mmol/L (22-32); HEMOLYSIS 80 (0-50); Potassium 2.6 mmol/L (3.4-5.1)
[2023-03-20 12:57] LABS: Ferritin 34 ng/mL (18-464)
[2023-03-20 13:11] LABS: Vitamin B12 > 1000 pg/mL (239-931)
[2023-03-24 16:27] LABS: Albumin 3.4 g/dL (2.9-4.4); Alpha-1-Globulin 0.3 g/dL (0.0-0.4); Alpha-2-Globulin 0.7 g/dL (0.4-1.0); Gamma Globulin 0.7 g/dL (0.4-1.8); Globulin Total 2.6 g/dL (2.2-3.9)
== END ==
PROVIDERS: PCP Internal Medicine; Referring Provider Internal Medicine; Visit Provider Internal Medicine
DX: D64.9 Anemia, unspecified (principal); E53.8 Deficiency of other specified B group vitamins; I48.20 Chronic atrial fibrillation, unspecified; R77.8 Other specified abnormalities of plasma proteins
CPT/HCPCS: 36415; 80053; 82607; 82728; 83540; 83550; 84155; 84165; 85027

== ENCOUNTER → 2023-03-27 13:29 | Outpatient (CLI) | payer MEDICARE, OTHER, SELFPAY ==
[2023-01-17 02:34] VITALS: PULSE 75; RESP 37; O2SAT 94
[2023-03-09 15:46] VITALS: BMI 26.3
[2023-03-27 14:53] LABS: HEMOLYSIS < 15 (0-50); Potassium 4.8 mmol/L (3.4-5.1)
== END ==
PROVIDERS: PCP Internal Medicine; Referring Provider Internal Medicine; Visit Provider Internal Medicine
DX: E87.6 Hypokalemia (principal)
CPT/HCPCS: 36415; 84132

== ENCOUNTER 2023-03-31 09:33 | Inpatient (IN) | payer MEDICARE, OTHER, SELFPAY ==
[2023-01-17 02:34] VITALS: PULSE 75; RESP 37; O2SAT 94
[2023-03-09 15:46] VITALS: BMI 26.3
[2023-03-31] VITALS (60 sets, daily range): BP systolic 84–182; BP diastolic 46–81; PULSE 31–54; RESP 0–42; TEMP 36.1–36.7; O2SAT 70–100; BMI 28.3
--- NOTE | 2023-03-31 09:44 | ED_ITS ---
HPI - General Adult General Chief complaint: Weakness Stated complaint: Weakness/diarrhea Time Seen by Provider: 03/31/23 09:33 Source: patient and EMS Mode of arrival: EMS Limitations: no limitations History of Present Illness HPI narrative: Patient is an 82-year-old male. Is here for evaluation of approximately 5 days of diarrhea. No vomiting. No recent travel. No recent antibiotics. Has not tried anything for the symptoms prior to arrival. He denies chest pain or shortness of breath. He states he does feel somewhat weak. He thinks that he is not urinating as much as what he normally does. He did receive approximately 750 cc of fluids by EMS prior to arrival. He does have history of bradycardia and hypotension. Related Data Home Medications Medication Instructions Recorded Confirmed albuterol sulfate 90 mcg/actuation 2 puff INH PRN PRN Shortness Of 03/22/17 03/31/23 aerosol inhaler (Proventil HFA) Breath ##0 mesalamine 500 mg capsule,extended 1,000 mg PO BID ##0 03/24/17 03/31/23 release (Pentasa) calcium carbonate 500 mg-vitamin 3 tab PO DAILY ##0 03/31/17 03/31/23 D3 2.5 mcg (100 unit) chewable tablet ferrous sulfate 325 mg (65 mg 325 mg PO BID 05/18/18 03/31/23 iron) tablet finasteride 5 mg tablet 5 mg PO DAILY 05/18/18 03/31/23 folic acid 1 mg tablet 1 mg PO DAILY 05/18/18 03/31/23 loratadine 10 mg tablet 10 mg PO DAILY 05/18/18 03/31/23 nitroglycerin 0.4 mg sublingual 0.4 mg sublingual Q5-15M PRN Chest 05/18/18 03/31/23 tablet (Nitrostat) Pain simvastatin 40 mg tablet 20 mg PO BEDTIME 12/07/21 03/31/23 fluticasone propionate 50 1 spray intranasal PRN PRN allergy 02/07/22 03/31/23 mcg/actuation nasal symptoms spray,suspension acetaminophen 325 mg tablet 650 mg PO Q4H PRN Pain 04/24/22 03/31/23 alfuzosin 10 mg tablet,extended 10 mg PO DAILY 04/24/22 03/31/23 release 24 hr ascorbic acid (vitamin C) 500 mg 500 mg PO DAILY 04/24/22 03/31/23 tablet neomycin-polymyxin 1 ea topical DAILY PRN Skin 04/24/22 03/31/23 S-[id number] top Irritation ointment omeprazole 20 mg tablet,delayed 20 mg PO DAILY 04/24/22 03/31/23 release carvedilol 12.5 mg tablet 12.5 mg PO BID 01/13/23 03/31/23 isosorbide mononitrate 60 mg 30 mg PO DAILY 01/13/23 03/31/23 tablet,extended release 24 hr potassium chloride 20 mEq 20 meq PO TID 01/13/23 03/31/23 tablet,extended release Previous Rx's Medication Instructions Recorded metolazone 2.5 mg tablet 2.5 mg PO DAILY #90 tabs 02/25/23 eplerenone 50 mg tablet 50 mg PO DAILY #90 tabs 03/04/23 tamsulosin 0.4 mg capsule 0.4 mg PO DAILY #90 caps 03/04/23 apixaban 5 mg tablet (Eliquis) 5 mg PO BID #180 tabs 03/20/23 Allergies Allergy/AdvReac Type Severity Reaction Status Date / Time ibuprofen Allergy Mild NOT GOOD Verified 03/31/23 10:39 FOR STOMACH BLEEDING iodine Allergy Mild UNKNOWN Verified 03/31/23 10:39 Sulfa (Sulfonamide Allergy Mild BURNED A Verified 03/31/23 10:39 Antibiotics) HOLE THRU INTESTINES thallium-201 Allergy Mild BREAKS OUT Verified 03/31/23 10:39 IN BLOTCHES AND ITCHING terazosin Allergy Hypotension Verified 03/31/23 10:39 spironolactone AdvReac Verified 03/31/23 10:39 Review of Systems Constitutional Constitutional: Reports system reviewed and no additional complaints, except as documented Cardiovascular Cardiovascular: Reports system reviewed and no additional complaints, except as documented Respiratory Respiratory: Reports system reviewed and no additional complaints, except as documented Gastrointestinal Gastrointestinal: Reports system reviewed and no additional complaints, except as documented Integumentary/Breasts Skin/Breast: Reports system reviewed and no additional complaints, except as documented Neurologic Neurologic: Reports system reviewed and no additional complaints, except as documented Hematologic/Lymphatic On Anticoagulants: Yes Patient History Medical History Anemia Asthma BPH w urinary obs/LUTS Chicken pox Chronic anticoagulation Chronic atrial fibrillation Chronic diastolic CHF (congestive heart failure), NYHA class 1 Coronary artery disease Crohn's disease Diverticular disease Easy bruisability Essential hypertension Fractures Hearing loss Hemorrhoid History of colonic polyps History of urinary incontinence (~2018) Measles Mixed hyperlipidemia Mumps Myocardial infarction Obesity Osteoarthritis Positive PPD Primary osteoarthritis involving multiple joints Pulmonary hypertension Right inguinal hernia Tinnitus Vision disorder Surgical History Anesthesia H/O mitral valve replacement (~03/2017) Hx of heart artery stent (~1994) Family History Mother Congestive heart failure Father Coronary artery disease Social History household members: spouse and family Smoking Status: Never smoker alcohol intake: current substance use type: does not use Type(s) of exercise: walking frequency: daily Smoking Status: Never smoker alcohol intake frequency: holidays/special occasions only Substance Use Type: does not use Exam Initial Vital Signs Initial Vital Signs: Vital Signs Temperature 97.9 F 03/31/23 09:35 HENMT Head: normal to inspection and normocephalic Resp Effort & Inspection: normal respiratory effort Auscultation: clear to auscultation bilaterally Cardio Rate: bradycardic Rhythm: regular rhythm GI Inspection: normal to inspection and non-distended Palpation: soft and No tender Skin General: no rashes or lesions noted Neuro General: patient alert, patient awake and moves all extremities Extrem General: normal to inspection and capillary refill normal Course Orders Ordered: ED Orders 03/31/23 09:35 EKG-12 Lead Stat 03/31/23 09:40 Complete Blood Count AUTO DIFF Stat Comprehensive Metabolic Panel Stat Lipase Stat Magnesium Stat PTT Partial Thromboplastin Long Stat Prothrombin Time INR Stat 03/31/23 10:15 Type and Screen Stat 03/31/23 10:20 Covid-19 + FLU A/B + RSV - PCR Stat 03/31/23 12:35 BMP [Basic Metabolic Panel] Stat CBC Auto Diff [Complete Blood Count AUTO DIFF] Stat 03/31/23 18:00 GI Panel (Film Array) Stat Acetaminophen (Acetaminophen 325 Mg Tablet) 650 mg PO Q6H PRN PRN Reason: Fever/Mild Pain (1-3) Last Admin: 03/31/23 16:33 Dose: 650 mg Documented By: BUTCH Sodium Chloride (Normal Saline 0.9%) 1,000 mls @ 150 mls/hr IV CONT SCOTT Last Admin: 03/31/23 11:11 Dose: 150 mls/hr Documented By: AMV Naloxone HCl (Naloxone 0.4 Mg/Ml Vial) 0.2 mg IV Q2MIN PRN PRN Reason: Opiate Reversal Discontinued Medications Albuterol (Albuterol 2.5 Mg/3 Ml Neb (Adult)) 5 mg INH NOW ONE Stop: 03/31/23 13:27 Albuterol (Albuterol 2.5 Mg/3 Ml Neb (Adult)) 2.5 mg INH NOW ONE Stop: 03/31/23 15:58 Atropine Sulfate (Atropine 1 Mg/10 Ml Syringe) 0.5 mg IV NOW ONE Stop: 03/31/23 09:48 Last Admin: 03/31/23 09:52 Dose: 0.5 mg Documented By: AMV Cyclobenzaprine HCl (Cyclobenzaprine 10 Mg Tablet) 10 mg PO NOW ONE Stop: 03/31/23 10:56 Last Admin: 03/31/23 11:11 Dose: 10 mg Documented By: AMV Dextrose (Dextrose 50 % In Water 25 Gm/50 Ml Syringe) 25 gm IV NOW ONE Stop: 03/31/23 10:22 Last Admin: 03/31/23 10:36 Dose: 25 gm Documented By: AMV Sodium Chloride (Normal Saline 0.9%) 1,000 mls @ 1,000 mls/hr IV BOLUS ONE Stop: 03/31/23 10:34 Last Infusion: 03/31/23 10:40 Dose: 0 mls/hr Documented By: Admin: 03/31/23 09:52 Dose: 1,000 mls/hr Documented By: AMV Calcium Gluconate 4.65 meq/ (Sodium Chloride) 60 mls @ 180 mls/hr IV NOW ONE Stop: 03/31/23 16:16 Last Admin: 03/31/23 16:33 Dose: 180 mls/hr Documented By: BUTCH Lactated Ringer's (Lactated Ringers) 500 mls @ 1,000 mls/hr IV BOLUS ONE Stop: 03/31/23 16:28 Last Admin: 03/31/23 16:33 Dose: 1,000 mls/hr Documented By: BUTCH Insulin Human Regular (Insulin Regular 100 Unit/Ml 3 Ml Vial) 10 unit IV NOW ONE Stop: 03/31/23 10:22 Last Admin: 03/31/23 10:27 Dose: 10 unit Documented By: AMV Co-signed By: KLS Sodium Polystyrene Sulfonate (Sodium Polystyrene Sulfon/Sorb 15 Gm/60 Ml Cup) 30 gm PO NOW ONE Stop: 03/31/23 13:26 Last Admin: 03/31/23 13:40 Dose: 30 gm Documented By: SHANTANU Vital Signs Vital signs: Vital Signs - 8 hr 03/31/23 10:28 03/31/23 10:28 03/31/23 10:30 Pulse Rate 50 L Respiratory Rate 25 H Blood Pressure 100/50 L 103/52 L Pulse Oximetry 85 L 03/31/23 10:30 03/31/23 10:40 03/31/23 10:40 Pulse Rate 37 L 39 L Respiratory Rate 20 22 Blood Pressure 95/54 L Pulse Oximetry 97 96 03/31/23 10:50 03/31/23 10:50 03/31/23 11:00 Pulse Rate 39 L 39 L Respiratory Rate 17 18 Blood Pressure 94/58 L Pulse Oximetry 97 99 03/31/23 11:01 03/31/23 11:01 03/31/23 11:10 Pulse Rate 39 L Respiratory Rate 17 Blood Pressure 115/53 L 112/57 L Pulse Oximetry 98 03/31/23 11:10 03/31/23 11:30 03/31/23 11:30 Pulse Rate 40 L 39 L Respiratory Rate 19 21 Blood Pressure 130/58 L Pulse Oximetry 98 98 03/31/23 11:50 03/31/23 11:50 03/31/23 12:00 Pulse Rate 35 L 35 L Respiratory Rate 22 20 Blood Pressure 100/54 L Pulse Oximetry 96 96 03/31/23 12:01 03/31/23 12:01 03/31/23 12:16 Pulse Rate 34 L Respiratory Rate 27 H Blood Pressure 120/53 L 103/53 L Pulse Oximetry 97 03/31/23 12:16 03/31/23 12:30 03/31/23 12:31 Pulse Rate 33 L 34 L 33 L Respiratory Rate 21 30 H 23 Blood Pressure Pulse Oximetry 97 93 94 03/31/23 12:31 03/31/23 12:45 03/31/23 12:45 Pulse Rate 44 L Respiratory Rate 25 H Blood Pressure 98/50 L 112/58 L Pulse Oximetry 95 03/31/23 13:00 03/31/23 13:01 03/31/23 13:14 Pulse Rate 39 L 37 L Respiratory Rate 35 H 33 H Blood Pressure 90/55 L Pulse Oximetry 97 97 03/31/23 13:14 03/31/23 13:16 03/31/23 13:16 Pulse Rate 40 L 33 L Respiratory Rate 30 H 22 Blood Pressure 96/55 L Pulse Oximetry 92 97 Medical Decision Making Medical Records Medical records reviewed: Yes I reviewed the patient's medical records. Lab Data Lab results reviewed: Yes I reviewed the patient's lab results. 03/31/23 12:35 03/31/23 16:00 Labs: Lab Results 03/31/23 03/31/23 03/31/23 Range/Units 09:40 09:40 09:40 WBC 4.3 L (4.5-11.0) X10^3/uL RBC 2.93 L (4.5-5.9) X10^6/uL Hgb 7.2 L (13.5-17.5) g/dL Hct 23.0 L (41-53) % MCV 78.2 L (80-100) fL MCH 24.6 L (26-34) PG MCHC 31.5 (30-36) % RDW 17.7 H (11.6-14.8) % Plt Count 184 (150-400) X10^3/uL Neut % (Auto) 75.0 (50-75) % Lymph % (Auto) 12.0 L (25-40) % [place] % (Auto) 12.2 (3-14) % Eos % (Auto) 0.0 L (2-4) % Baso % (Auto) 0.8 (0-2) % Neut # (Auto) 3200 (2358-3971) /uL Lymph # (Auto) 500 L (0695-2213) /uL [place] # (Auto) 500 (0-900) /uL Eos # (Auto) 0 (0-450) /uL Baso # (Auto) 0 (0-100) /uL PT 28.7 H (10.1-12.7) SECONDS INR 2.5 H (0.9-1.3) APTT 34 (26-36) SECONDS Sodium 125 L (137-145) mmol/L Potassium 6.9 H* D (3.4-5.1) mmol/L Chloride 98 (98-107) mmol/L Carbon Dioxide 19 L (22-32) mmol/L BUN 55 H (9-20) mg/dL Creatinine 1.11 (0.66-1.25) mg/dL Estimated GFR > 60 (>60) mL/min BUN/Creatinine Ratio 49.5 H (6-22) Glucose 110 (80-110) mg/dL Calcium 8.8 (8.4-10.2) mg/dL Magnesium 2.5 H (1.6-2.3) mg/dL Total Bilirubin 0.7 (0.2-1.3) mg/dL AST 39 (17-59) IU/L ALT 29 (<50) IU/L Alkaline Phosphatase 140 H (38-126) U/L Total Protein 5.8 L (6.3-8.2) g/dL Albumin 3.3 L (3.5-5.0) g/dL Globulin 2.5 (1.7-4.1) g/dL Albumin/Globulin Ratio 1.3 (1.0-2.8) Lipase 109 (23-300) U/L SARS-CoV-2 (PCR) (Negative) Influenza A (RT-PCR) (NEGATIVE) Influenza B (RT-PCR) (NEGATIVE) RSV (PCR) (Negative) Blood Type Antibody Screen 03/31/23 03/31/23 03/31/23 Range/Units 10:15 10:20 12:35 WBC 4.3 L (4.5-11.0) X10^3/uL RBC 2.85 L (4.5-5.9) X10^6/uL Hgb 7.0 L (13.5-17.5) g/dL Hct 22.5 L (41-53) % MCV 78.8 L (80-100) fL MCH 24.5 L (26-34) PG MCHC 31.2 (30-36) % RDW 17.9 H (11.6-14.8) % Plt Count 169 (150-400) X10^3/uL Neut % (Auto) 71.3 (50-75) % Lymph % (Auto) 13.3 L (25-40) % [place] % (Auto) 15.1 H (3-14) % Eos % (Auto) 0.1 L (2-4) % Baso % (Auto) 0.2 (0-2) % Neut # (Auto) 3000 (3977-2712) /uL Lymph # (Auto) 600 L (7898-8459) /uL [place] # (Auto) 600 (0-900) /uL Eos # (Auto) 0 (0-450) /uL Baso # (Auto) 0 (0-100) /uL PT (10.1-12.7) SECONDS INR (0.9-1.3) APTT (26-36) SECONDS Sodium (137-145) mmol/L Potassium (3.4-5.1) mmol/L Chloride (98-107) mmol/L Carbon Dioxide (22-32) mmol/L BUN (9-20) mg/dL Creatinine (0.66-1.25) mg/dL Estimated GFR (>60) mL/min BUN/Creatinine Ratio (6-22) Glucose (80-110) mg/dL Calcium (8.4-10.2) mg/dL Magnesium (1.6-2.3) mg/dL Total Bilirubin (0.2-1.3) mg/dL AST (17-59) IU/L ALT (<50) IU/L Alkaline Phosphatase (38-126) U/L Total Protein (6.3-8.2) g/dL Albumin (3.5-5.0) g/dL Globulin (1.7-4.1) g/dL Albumin/Globulin Ratio (1.0-2.8) Lipase (23-300) U/L SARS-CoV-2 (PCR) Negative (Negative) Influenza A (RT-PCR) Flu a negative (NEGATIVE) Influenza B (RT-PCR) Flu b negative (NEGATIVE) RSV (PCR) Negative (Negative) Blood Type A Positive Antibody Screen Negative 03/31/23 Range/Units 12:35 WBC (4.5-11.0) X10^3/uL RBC (4.5-5.9) X10^6/uL Hgb (13.5-17.5) g/dL Hct (41-53) % MCV (80-100) fL MCH (26-34) PG MCHC (30-36) % RDW (11.6-14.8) % Plt Count (150-400) X10^3/uL Neut % (Auto) (50-75) % Lymph % (Auto) (25-40) % [place] % (Auto) (3-14) % Eos % (Auto) (2-4) % Baso % (Auto) (0-2) % Neut # (Auto) (8811-2390) /uL Lymph # (Auto) (8030-1890) /uL [place] # (Auto) (0-900) /uL Eos # (Auto) (0-450) /uL Baso # (Auto) (0-100) /uL PT (10.1-12.7) SECONDS INR (0.9-1.3) APTT (26-36) SECONDS Sodium 127 L (137-145) mmol/L Potassium 6.0 H (3.4-5.1) mmol/L Chloride 100 (98-107) mmol/L Carbon Dioxide 21 L (22-32) mmol/L BUN 53 H (9-20) mg/dL Creatinine 1.10 (0.66-1.25) mg/dL Estimated GFR > 60 (>60) mL/min BUN/Creatinine Ratio 48.2 H (6-22) Glucose 72 L (80-110) mg/dL Calcium 8.5 (8.4-10.2) mg/dL Magnesium (1.6-2.3) mg/dL Total Bilirubin (0.2-1.3) mg/dL AST (17-59) IU/L ALT (<50) IU/L Alkaline Phosphatase (38-126) U/L Total Protein (6.3-8.2) g/dL Albumin (3.5-5.0) g/dL Globulin (1.7-4.1) g/dL Albumin/Globulin Ratio (1.0-2.8) Lipase (23-300) U/L SARS-CoV-2 (PCR) (Negative) Influenza A (RT-PCR) (NEGATIVE) Influenza B (RT-PCR) (NEGATIVE) RSV (PCR) (Negative) Blood Type Antibody Screen Point of Care Testing Glucose POC 87 Urine Dip Bedside Urine Glucose Negative Bedside Urine Bilirubin - Negative Bedside Urine Ketone - Negative Urine Specific [place] 1.015 Bedside Urine Occult Blood - Negative Bedside Urine pH 6 Bedside Urine Protein - Negative Bedside Urine Urobilinogen - Negative Bedside Urine Nitrite - Negative Bedside Urine Leukocytes - Negative Esterase Point of care testing: Point of Care Testing Glucose POC 87 Urine Dip Bedside Urine Glucose Negative Bedside Urine Bilirubin - Negative Bedside Urine Ketone - Negative Urine Specific [place] 1.015 Bedside Urine Occult Blood - Negative Bedside Urine pH 6 Bedside Urine Protein - Negative Bedside Urine Urobilinogen - Negative Bedside Urine Nitrite - Negative Bedside Urine Leukocytes - Negative Esterase ECG Data Attestation: I personally reviewed and interpreted this ECG as follows: Interpretation: Bradycardic Ventricular rate of 31 Narrow complex QRS at 0124 milliseconds No specific P wave noted No ST elevations MDM Narrative Medical decision making narrative: Patient has been hyperkalemic. Was given insulin glucose and also albuterol for this. He is no EKG changes that would be consistent with hyperkalemia. He is anemic but repeat was only slightly low and I suspect that this is because of the fluids that he has been administered. His blood pressure improved after fluids. He was unable to provide any sort of stool sample here in the ER. Patient was bradycardic but is alert oriented x3. Was given atropine and this improved to the low 40s for very short period of time. Patient does seem very fatigued. I did discuss the case with Dr. Uribe on-call for hospitalist Medicine who will admit for further evaluation and treatment. Discharge Plan Departure Patient Disposition: Admitted As Inpatient Clinical Impression: Bradycardia, Anemia, Dehydration, Hyperkalemia, Diarrhea Admit Date/Time: 03/31/23 13:28 Admit Provider: Andrzej Uribe
[2023-03-31 09:51] LABS: Add Manual Diff / Slide Review NO; Basophils Absolute Auto 0 /uL (0-100); Basophils Percent Auto 0.8 % (0-2); Eosinophils Absolute Auto 0 /uL (0-450); Hemoglobin 7.2 g/dL (13.5-17.5); Lymphocytes Absolute Auto 500 /uL (1100-4500); Mean Corpuscular HGB Conc 31.5 % (30-36); Mean Corpuscular Hemoglobin 24.6 PG (26-34); Mean Corpuscular Volume 78.2 fL (80-100); Monocytes Absolute Auto 500 /uL (0-900); Monocytes Percent Auto 12.2 % (3-14); Neutrophils Absolute Auto 3200 /uL (1500-7000); Platelet Count 184 X10^3/uL (150-400); Red Blood Cell Count 2.93 X10^6/uL (4.5-5.9); Red Cell Distribution Width 17.7 % (11.6-14.8); White Blood Cell Count 4.3 X10^3/uL (4.5-11.0)
[2023-03-31] MEDS: ATROPINE 1 MG/10 ML SYRINGE 0.5 MG IV (09:52)
[2023-03-31] MEDS: SODIUM CHLORIDE 0.9% 1,000 ML 1000 ML IV (09:52)
[2023-03-31 09:54] LABS: INR 2.5 (0.9-1.3); Prothrombin Time 28.7 SECONDS (10.1-12.7)
[2023-03-31 09:56] LABS: PTT Partial Thromboplastin Tim 34 SECONDS (26-36)
[2023-03-31 10:03] LABS: Alanine Aminotransferase 29 IU/L (<50); Albumin 3.3 g/dL (3.5-5.0); Albumin Globulin Ratio 1.3 (1.0-2.8); Alkaline Phosphatase 140 U/L (38-126); Aspartate Aminotransferase 39 IU/L (17-59); BUN Creatinine Ratio 49.5 (6-22); Bilirubin Total 0.7 mg/dL (0.2-1.3); Blood Urea Nitrogen 55 mg/dL (9-20); Calcium 8.8 mg/dL (8.4-10.2); Carbon Dioxide 19 mmol/L (22-32); Chloride 98 mmol/L (98-107); Estimated Glomerular Filt Rate > 60 mL/min (>60); Globulin 2.5 g/dL (1.7-4.1); Glucose 110 mg/dL (80-110); HEMOLYSIS < 15 (0-50); Lipase 109 U/L (23-300); Magnesium 2.5 mg/dL (1.6-2.3); Sodium 125 mmol/L (137-145); Total Protein 5.8 g/dL (6.3-8.2)
[2023-03-31 10:16] LABS: Potassium 6.9 mmol/L (3.4-5.1)
[2023-03-31] MEDS: INSULIN REGULAR 100 UNIT/ML 3 ML VIAL 10 UNIT IV (10:27)
[2023-03-31] MEDS: DEXTROSE 50 % IN WATER 25 GM/50 ML SYRINGE IV (10:36)
[2023-03-31 11:08] LABS: Influenza A - CEPHEID Flu A NEGATIVE (NEGATIVE); Influenza B - CEPHEID Flu B NEGATIVE (NEGATIVE); Respiratory Syncytial Virus Negative (Negative)
[2023-03-31 11:11] LABS: COVID-19 CEPHEID 4-PLEX PCR Negative (Negative)
[2023-03-31] MEDS: SODIUM CHLORIDE 0.9% 1,000 ML 150 ML IV ×2 (11:11→19:00)
[2023-03-31] MEDS: CYCLOBENZAPRINE 10 MG TABLET PO (11:11)
--- NOTE | 2023-03-31 12:29 | PC.NURSE ---
Pt attempted to provide a stool sample for the 3rd time. Unsuccessful. Dr. Keane aware
[2023-03-31 12:52] LABS: Add Manual Diff / Slide Review NO; Basophils Absolute Auto 0 /uL (0-100); Basophils Percent Auto 0.2 % (0-2); Eosinophils Absolute Auto 0 /uL (0-450); Eosinophils Percent Auto 0.1 % (2-4); Hematocrit 22.5 % (41-53); Lymphocytes Absolute Auto 600 /uL (1100-4500); Lymphocytes Percent Auto 13.3 % (25-40); Mean Corpuscular HGB Conc 31.2 % (30-36); Mean Corpuscular Hemoglobin 24.5 PG (26-34); Mean Corpuscular Volume 78.8 fL (80-100); Monocytes Absolute Auto 600 /uL (0-900); Monocytes Percent Auto 15.1 % (3-14); Neutrophils Absolute Auto 3000 /uL (1500-7000); Neutrophils Percent Auto 71.3 % (50-75); Platelet Count 169 X10^3/uL (150-400); Red Blood Cell Count 2.85 X10^6/uL (4.5-5.9); Red Cell Distribution Width 17.9 % (11.6-14.8); White Blood Cell Count 4.3 X10^3/uL (4.5-11.0)
[2023-03-31 12:58] LABS: BUN Creatinine Ratio 48.2 (6-22); Blood Urea Nitrogen 53 mg/dL (9-20); Calcium 8.5 mg/dL (8.4-10.2); Carbon Dioxide 21 mmol/L (22-32); Chloride 100 mmol/L (98-107); Estimated Glomerular Filt Rate > 60 mL/min (>60); Glucose 72 mg/dL (80-110); HEMOLYSIS < 15 (0-50); Sodium 127 mmol/L (137-145)
[2023-03-31] MEDS: SODIUM POLYSTYRENE SULFON/SORB 15 GM/60 ML CUP 30 GM PO (13:40)
--- NOTE | 2023-03-31 14:29 | PM.HP.1 ---
History of Present Illness History of Present Illness Date Patient Seen: 03/31/23 Date of Onset of Symptoms: 03/26/23 Chief complaint: Weakness/diarrhea Narrative: The patient presents to ED for 5 days of watery diarrhea and weakness. He denies vomiting. He called EMS today and was given IVF en route. Here, he was found to have severe hypokalemia as well as hyponatremia and a junctional bradycardia (rate 30's). 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 He was given insulin and dextrose in ED. He improved to 6.0 with a Creatinine of 1.11. He will get kayexalate next. He has also been getting IV fluid resucitation in the ED. His repeat K was 6.0. Heart rate has increased to 40's. He is listless and notes some abdomen pain and poor appetite. He has been ill for 5 days. No rectal bleeding. He states that it feels a bit like hos Crohn's. He denies fevers or URI symptoms such as cough. He is Full Code and is proxy. [facility] Medical History Anemia Asthma BPH w urinary obs/LUTS Chicken pox Chronic anticoagulation Chronic atrial fibrillation Chronic diastolic CHF (congestive heart failure), NYHA class 1 Coronary artery disease Crohn's disease Diverticular disease Easy bruisability Essential hypertension Fractures Hearing loss Hemorrhoid History of colonic polyps History of urinary incontinence (~2018) Measles Mixed hyperlipidemia Mumps Myocardial infarction Obesity Osteoarthritis Positive PPD Primary osteoarthritis involving multiple joints Pulmonary hypertension Right inguinal hernia Tinnitus Vision disorder Surgical History Anesthesia H/O mitral valve replacement (~03/2017) Hx of heart artery stent (~1994) Family History Mother Congestive heart failure Father Coronary artery disease Social History household members: spouse and family Smoking Status: Never smoker alcohol intake: current substance use type: does not use Type(s) of exercise: walking frequency: daily Meds Home Medications and Allergies Home Medications Medication Instructions Recorded Confirmed Type albuterol sulfate 90 mcg/actuation 2 puff INH PRN PRN Shortness Of 03/22/17 03/31/23 History aerosol inhaler (Proventil HFA) Breath ##0 mesalamine 500 mg capsule,extended 1,000 mg PO BID ##0 03/24/17 03/31/23 History release (Pentasa) calcium carbonate 500 mg-vitamin 3 tab PO DAILY ##0 03/31/17 03/31/23 History D3 2.5 mcg (100 unit) chewable tablet ferrous sulfate 325 mg (65 mg 325 mg PO BID 05/18/18 03/31/23 History iron) tablet finasteride 5 mg tablet 5 mg PO DAILY 05/18/18 03/31/23 History folic acid 1 mg tablet 1 mg PO DAILY 05/18/18 03/31/23 History loratadine 10 mg tablet 10 mg PO DAILY 05/18/18 03/31/23 History nitroglycerin 0.4 mg sublingual 0.4 mg sublingual Q5-15M PRN Chest 05/18/18 03/31/23 History tablet (Nitrostat) Pain simvastatin 40 mg tablet 20 mg PO BEDTIME 12/07/21 03/31/23 History fluticasone propionate 50 1 spray intranasal DAILY PRN 02/07/22 03/31/23 History mcg/actuation nasal allergy symptoms spray,suspension acetaminophen 325 mg tablet 650 mg PO Q4H PRN Pain 04/24/22 03/31/23 History alfuzosin 10 mg tablet,extended 10 mg PO DAILY 04/24/22 03/31/23 History release 24 hr ascorbic acid (vitamin C) 500 mg 500 mg PO DAILY 04/24/22 03/31/23 History tablet neomycin-polymyxin 1 ea topical DAILY PRN Skin 04/24/22 03/31/23 History G-[id number]-[id number] top Irritation ointment omeprazole 20 mg tablet,delayed 20 mg PO DAILY 04/24/22 03/31/23 History release carvedilol 12.5 mg tablet 12.5 mg PO BID 01/13/23 03/31/23 History isosorbide mononitrate 60 mg 60 mg PO DAILY 01/13/23 03/31/23 History tablet,extended release 24 hr potassium chloride 20 mEq 20 meq PO TID 01/13/23 03/31/23 History tablet,extended release metolazone 2.5 mg tablet 2.5 mg PO DAILY #90 tabs 02/25/23 03/31/23 Rx eplerenone 50 mg tablet 50 mg PO DAILY #90 tabs 03/04/23 03/31/23 Rx tamsulosin 0.4 mg capsule 0.4 mg PO DAILY #90 caps 03/04/23 03/31/23 Rx apixaban 5 mg tablet (Eliquis) 5 mg PO BID #180 tabs 03/20/23 03/31/23 Rx warfarin 5 mg tablet 5 mg PO DAILY 03/31/23 03/31/23 History Allergies Allergy/AdvReac Type Severity Reaction Status Date / Time ibuprofen Allergy Mild NOT GOOD Verified 03/31/23 10:39 FOR STOMACH BLEEDING iodine Allergy Mild UNKNOWN Verified 03/31/23 10:39 Sulfa (Sulfonamide Allergy Mild BURNED A Verified 03/31/23 10:39 Antibiotics) HOLE THRU INTESTINES thallium-201 Allergy Mild BREAKS OUT Verified 03/31/23 10:39 IN BLOTCHES AND ITCHING terazosin Allergy Hypotension Verified 03/31/23 10:39 spironolactone AdvReac Verified 03/31/23 10:39 Review of Systems Review of Systems Narrative: All else reviewed and otherwise negative except as noted in the H&P. Exam Vital Signs (past 8 hours): - 03/31/23 09:35 03/31/23 09:39 03/31/23 09:45 Temperature 97.9 F Pulse Rate 34 L Respiratory Rate 23 Blood Pressure 84/47 L Pulse Oximetry 03/31/23 09:45 03/31/23 09:50 03/31/23 09:50 Temperature Pulse Rate 31 L 34 L Respiratory Rate 22 25 H Blood Pressure 91/53 L Pulse Oximetry 93 98 03/31/23 09:56 03/31/23 09:56 03/31/23 10:00 Temperature Pulse Rate 36 L Respiratory Rate 42 H Blood Pressure 102/68 113/55 L Pulse Oximetry 98 03/31/23 10:00 03/31/23 10:07 03/31/23 10:07 Temperature Pulse Rate 36 L 35 L Respiratory Rate 0 L 7 L Blood Pressure 118/52 L Pulse Oximetry 96 90 L 03/31/23 10:10 03/31/23 10:10 03/31/23 10:15 Temperature Pulse Rate 35 L Respiratory Rate 14 Blood Pressure 108/54 L 112/57 L Pulse Oximetry 96 03/31/23 10:15 03/31/23 10:28 03/31/23 10:28 Temperature Pulse Rate 34 L 50 L Respiratory Rate 17 25 H Blood Pressure 100/50 L Pulse Oximetry 92 85 L 03/31/23 10:30 03/31/23 10:30 03/31/23 10:40 Temperature Pulse Rate 37 L 39 L Respiratory Rate 20 22 Blood Pressure 103/52 L Pulse Oximetry 97 96 03/31/23 10:40 03/31/23 10:50 03/31/23 10:50 Temperature Pulse Rate 39 L Respiratory Rate 17 Blood Pressure 95/54 L 94/58 L Pulse Oximetry 97 03/31/23 11:00 03/31/23 11:01 03/31/23 11:01 Temperature Pulse Rate 39 L 39 L Respiratory Rate 18 17 Blood Pressure 115/53 L Pulse Oximetry 99 98 03/31/23 11:10 03/31/23 11:10 03/31/23 11:30 Temperature Pulse Rate 40 L Respiratory Rate 19 Blood Pressure 112/57 L 130/58 L Pulse Oximetry 98 03/31/23 11:30 03/31/23 11:50 03/31/23 11:50 Temperature Pulse Rate 39 L 35 L Respiratory Rate 21 22 Blood Pressure 100/54 L Pulse Oximetry 98 96 03/31/23 12:00 03/31/23 12:01 03/31/23 12:01 Temperature Pulse Rate 35 L 34 L Respiratory Rate 20 27 H Blood Pressure 120/53 L Pulse Oximetry 96 97 03/31/23 12:16 03/31/23 12:16 03/31/23 12:30 Temperature Pulse Rate 33 L 34 L Respiratory Rate 21 30 H Blood Pressure 103/53 L Pulse Oximetry 97 93 03/31/23 12:31 03/31/23 12:31 03/31/23 12:45 Temperature Pulse Rate 33 L 44 L Respiratory Rate 23 25 H Blood Pressure 98/50 L Pulse Oximetry 94 95 03/31/23 12:45 03/31/23 13:00 03/31/23 13:01 Temperature Pulse Rate 39 L 37 L Respiratory Rate 35 H 33 H Blood Pressure 112/58 L Pulse Oximetry 97 97 03/31/23 13:14 03/31/23 13:14 03/31/23 13:16 Temperature Pulse Rate 40 L Respiratory Rate 30 H Blood Pressure 90/55 L 96/55 L Pulse Oximetry 92 03/31/23 13:16 03/31/23 13:30 03/31/23 13:31 Temperature Pulse Rate 33 L 34 L 34 L Respiratory Rate 22 23 26 H Blood Pressure Pulse Oximetry 97 96 97 03/31/23 13:31 03/31/23 13:46 03/31/23 13:46 Temperature Pulse Rate 35 L Respiratory Rate 37 H Blood Pressure 94/55 L 98/50 L Pulse Oximetry 97 03/31/23 14:00 03/31/23 14:04 03/31/23 14:04 Temperature Pulse Rate 36 L 37 L Respiratory Rate 25 H 23 Blood Pressure 100/58 L Pulse Oximetry 93 97 Narrative Exam Narrative: NAD, slow and softl speech, listless. Atraumatic head EOMI, anicteric sclera Dry oral mucosa Neck supple and trachea midline. Lungs CTA with normal effort CV RRR, no MGR. Bradycardic. No leg edema Normal skin, decreased turger Normal joints No rash or bruising Moves all extremities Normal judgement Objective ECG Impression: Junctional bradycardia. Labs 03/31/23 12:35 03/31/23 14:57 Labs: Laboratory Results - last 24 hr 03/31/23 03/31/23 03/31/23 09:40 09:40 09:40 WBC 4.3 L RBC 2.93 L Hgb 7.2 L Hct 23.0 L MCV 78.2 L MCH 24.6 L MCHC 31.5 RDW 17.7 H Plt Count 184 Neut % (Auto) 75.0 Lymph % (Auto) 12.0 L [place] % (Auto) 12.2 Eos % (Auto) 0.0 L Baso % (Auto) 0.8 Neut # (Auto) 3200 Lymph # (Auto) 500 L [place] # (Auto) 500 Eos # (Auto) 0 Baso # (Auto) 0 PT 28.7 H INR 2.5 H APTT 34 Sodium 125 L Potassium 6.9 H* D Chloride 98 Carbon Dioxide 19 L BUN 55 H Creatinine 1.11 Estimated GFR > 60 BUN/Creatinine Ratio 49.5 H Glucose 110 Calcium 8.8 Magnesium 2.5 H Total Bilirubin 0.7 AST 39 ALT 29 Alkaline Phosphatase 140 H Total Protein 5.8 L Albumin 3.3 L Globulin 2.5 Albumin/Globulin Ratio 1.3 Lipase 109 SARS-CoV-2 (PCR) Influenza A (RT-PCR) Influenza B (RT-PCR) RSV (PCR) Blood Type Antibody Screen 03/31/23 03/31/23 03/31/23 10:15 10:20 12:35 WBC 4.3 L RBC 2.85 L Hgb 7.0 L Hct 22.5 L MCV 78.8 L MCH 24.5 L MCHC 31.2 RDW 17.9 H Plt Count 169 Neut % (Auto) 71.3 Lymph % (Auto) 13.3 L [place] % (Auto) 15.1 H Eos % (Auto) 0.1 L Baso % (Auto) 0.2 Neut # (Auto) 3000 Lymph # (Auto) 600 L [place] # (Auto) 600 Eos # (Auto) 0 Baso # (Auto) 0 PT INR APTT Sodium Potassium Chloride Carbon Dioxide BUN Creatinine Estimated GFR BUN/Creatinine Ratio Glucose Calcium Magnesium Total Bilirubin AST ALT Alkaline Phosphatase Total Protein Albumin Globulin Albumin/Globulin Ratio Lipase SARS-CoV-2 (PCR) Negative Influenza A (RT-PCR) Flu a negative Influenza B (RT-PCR) Flu b negative RSV (PCR) Negative Blood Type A Positive Antibody Screen Negative 03/31/23 12:35 WBC RBC Hgb Hct MCV MCH MCHC RDW Plt Count Neut % (Auto) Lymph % (Auto) [place] % (Auto) Eos % (Auto) Baso % (Auto) Neut # (Auto) Lymph # (Auto) [place] # (Auto) Eos # (Auto) Baso # (Auto) PT INR APTT Sodium 127 L Potassium 6.0 H Chloride 100 Carbon Dioxide 21 L BUN 53 H Creatinine 1.10 Estimated GFR > 60 BUN/Creatinine Ratio 48.2 H Glucose 72 L Calcium 8.5 Magnesium Total Bilirubin AST ALT Alkaline Phosphatase Total Protein Albumin Globulin Albumin/Globulin Ratio Lipase SARS-CoV-2 (PCR) Influenza A (RT-PCR) Influenza B (RT-PCR) RSV (PCR) Blood Type Antibody Screen Assessment & Plan Assessment & Plan narrative: 1. Junctional bradycardia, POA and active. -hold coreg, and correct potassium. Telemetry. External pacemaker at bedside. Dopamine if needed. 2. Hyperkalemia, POA and active. -kayexalte and telemetry, Q 6 BMP. 3. Diarrhea (Crohns) with volume depletion, POA and active. -IVF abd stool PCR. 4. Hypovolemic hyponatremia, POA and active. -IVF (NS) and monitor 5. Anemia, POA and active. -follow and FOBT. Iron studies, B12 and Folate. 6. Pulmonary hypertension, POA and stable. 7. HTN, POA and stable. -hold usual medications while volume depleted 8. Chronic atrial fibrillation on anticoagulation, POA and stable. 9. CAD, POA and stable. 10. Asthma, POA and stable. 11. Crohns disease, POA. -will add CRP to assess for possible disease activity. Full Code is proxy decision maker. 45 min of critical care time spent. He has life threatening hyperkalemia and heart block with a junctional escape. Time Spent With Patient Time with patient: 30 to 49 minutes with 50% spent counseling/coordinating care
[2023-03-31 15:19] LABS: BUN Creatinine Ratio 45.1 (6-22); Blood Urea Nitrogen 51 mg/dL (9-20); Calcium 8.7 mg/dL (8.4-10.2); Carbon Dioxide 22 mmol/L (22-32); Chloride 100 mmol/L (98-107); Estimated Glomerular Filt Rate > 60 mL/min (>60); Glucose 90 mg/dL (80-110); HEMOLYSIS < 15 (0-50); Sodium 128 mmol/L (137-145)
--- NOTE | 2023-03-31 15:55 | P.TELICUCN_ITS ---
History of Present Illness Consult details IF CAMERA ACTIVATED, patient seen via real-time interactive audiovisual communication: Camera activated Date Patient Seen: 03/31/23 Chief complaint: Weakness/diarrhea Consent obtained for tele-account auditor care: Yes Patient Location: ICU Provider location (State): [place] Other participants/roles: Bedside RN Narrative: Patient is a 82 year old male with history of asthma and anemia who presents with generalized weakness. Associated with diarrhea and knee pain. Denies chest pain, N/V, fever/chills, or abdominal pain. On presentation he was found to have K 6.9, Co2 19, Na 125, and Hb 7.2. He received 1 liter NS bolus and kayaxalate. Repeat K 6.1. Admitted to ICU for further management. [facility] Medical History Anemia Asthma BPH w urinary obs/LUTS Chicken pox Chronic anticoagulation Chronic atrial fibrillation Chronic diastolic CHF (congestive heart failure), NYHA class 1 Coronary artery disease Crohn's disease Diverticular disease Easy bruisability Essential hypertension Fractures Hearing loss Hemorrhoid History of colonic polyps History of urinary incontinence (~2018) Measles Mixed hyperlipidemia Mumps Myocardial infarction Obesity Osteoarthritis Positive PPD Primary osteoarthritis involving multiple joints Pulmonary hypertension Right inguinal hernia Tinnitus Vision disorder Surgical History Anesthesia H/O mitral valve replacement (~03/2017) Hx of heart artery stent (~1994) Family History Mother Congestive heart failure Father Coronary artery disease Social History household members: spouse and family Smoking Status: Never smoker alcohol intake: current substance use type: does not use Type(s) of exercise: walking frequency: daily Current Medications Current Medications Medications: Home Medications albuterol sulfate 90 mcg/actuation aerosol inhaler (Proventil HFA) 2 puff INH PRN PRN Shortness Of Breath ##0 03/22/17 [History Confirmed 03/20/23] mesalamine 500 mg capsule,extended release (Pentasa) 1,000 mg PO BID ##0 03/24/17 [History Confirmed 03/20/23] calcium carbonate 500 mg-vitamin D3 2.5 mcg (100 unit) chewable tablet 3 tab PO DAILY ##0 03/31/17 [History Confirmed 03/20/23] ferrous sulfate 325 mg (65 mg iron) tablet 325 mg PO BID 05/18/18 [History Confirmed 03/20/23] finasteride 5 mg tablet 5 mg PO DAILY 05/18/18 [History Confirmed 03/20/23] folic acid 1 mg tablet 1 mg PO DAILY 05/18/18 [History Confirmed 03/20/23] loratadine 10 mg tablet 10 mg PO DAILY 05/18/18 [History Confirmed 03/20/23] nitroglycerin 0.4 mg sublingual tablet (Nitrostat) 0.4 mg sublingual Q5-15M PRN Chest Pain 05/18/18 [History Confirmed 03/20/23] simvastatin 40 mg tablet 20 mg PO BEDTIME 12/07/21 [History Confirmed 03/20/23] fluticasone propionate 50 mcg/actuation nasal spray,suspension 1 spray intranasal DAILY PRN allergy symptoms 02/07/22 [History Confirmed 03/20/23] acetaminophen 325 mg tablet 650 mg PO Q4H PRN Pain 04/24/22 [History Confirmed 03/20/23] alfuzosin 10 mg tablet,extended release 24 hr 10 mg PO DAILY 04/24/22 [History Confirmed 03/20/23] ascorbic acid (vitamin C) 500 mg tablet 500 mg PO DAILY 04/24/22 [History Confirmed 03/20/23] neomycin-polymyxin [id number]-[id number] top ointment 1 ea topical DAILY PRN Skin Irritation 04/24/22 [History Confirmed 03/20/23] omeprazole 20 mg tablet,delayed release 20 mg PO DAILY 04/24/22 [History Confirmed 03/20/23] carvedilol 12.5 mg tablet 12.5 mg PO BID 01/13/23 [History Confirmed 03/20/23] isosorbide mononitrate 60 mg tablet,extended release 24 hr 60 mg PO DAILY 01/13/23 [History Confirmed 03/20/23] potassium chloride 20 mEq tablet,extended release 20 meq PO TID 01/13/23 [History Confirmed 03/20/23] metolazone 2.5 mg tablet 2.5 mg PO DAILY #90 tabs 02/25/23 [Rx Confirmed 03/20/23] eplerenone 50 mg tablet 50 mg PO DAILY #90 tabs 03/04/23 [Rx Confirmed 03/20/23] tamsulosin 0.4 mg capsule 0.4 mg PO DAILY #90 caps 03/04/23 [Rx Confirmed 03/20/23] apixaban 5 mg tablet (Eliquis) 5 mg PO BID #180 tabs 03/20/23 [Rx Confirmed 03/20/23] Visit Medications (administered) Generic Name Dose Route Start Last Admin Trade Name Malgorzata PRN Reason Stop Dose Admin Sodium Chloride 1,000 mls @ 150 mls/hr 03/31/23 11:00 03/31/23 11:11 Normal Saline 0.9% IV 150 mls/hr CONT SCOTT Administration Exam Vital Signs (past 8 hours): - 03/31/23 09:35 03/31/23 09:39 03/31/23 09:45 Temperature 97.9 F Pulse Rate 34 L Respiratory Rate 23 Blood Pressure 84/47 L Pulse Oximetry 03/31/23 09:45 03/31/23 09:50 03/31/23 09:50 Temperature Pulse Rate 31 L 34 L Respiratory Rate 22 25 H Blood Pressure 91/53 L Pulse Oximetry 93 98 03/31/23 09:56 03/31/23 09:56 03/31/23 10:00 Temperature Pulse Rate 36 L Respiratory Rate 42 H Blood Pressure 102/68 113/55 L Pulse Oximetry 98 03/31/23 10:00 03/31/23 10:07 03/31/23 10:07 Temperature Pulse Rate 36 L 35 L Respiratory Rate 0 L 7 L Blood Pressure 118/52 L Pulse Oximetry 96 90 L 03/31/23 10:10 03/31/23 10:10 03/31/23 10:15 Temperature Pulse Rate 35 L Respiratory Rate 14 Blood Pressure 108/54 L 112/57 L Pulse Oximetry 96 03/31/23 10:15 03/31/23 10:28 03/31/23 10:28 Temperature Pulse Rate 34 L 50 L Respiratory Rate 17 25 H Blood Pressure 100/50 L Pulse Oximetry 92 85 L 03/31/23 10:30 03/31/23 10:30 03/31/23 10:40 Temperature Pulse Rate 37 L 39 L Respiratory Rate 20 22 Blood Pressure 103/52 L Pulse Oximetry 97 96 03/31/23 10:40 03/31/23 10:50 03/31/23 10:50 Temperature Pulse Rate 39 L Respiratory Rate 17 Blood Pressure 95/54 L 94/58 L Pulse Oximetry 97 03/31/23 11:00 03/31/23 11:01 03/31/23 11:01 Temperature Pulse Rate 39 L 39 L Respiratory Rate 18 17 Blood Pressure 115/53 L Pulse Oximetry 99 98 03/31/23 11:10 03/31/23 11:10 03/31/23 11:30 Temperature Pulse Rate 40 L Respiratory Rate 19 Blood Pressure 112/57 L 130/58 L Pulse Oximetry 98 03/31/23 11:30 03/31/23 11:50 03/31/23 11:50 Temperature Pulse Rate 39 L 35 L Respiratory Rate 21 22 Blood Pressure 100/54 L Pulse Oximetry 98 96 03/31/23 12:00 03/31/23 12:01 03/31/23 12:01 Temperature Pulse Rate 35 L 34 L Respiratory Rate 20 27 H Blood Pressure 120/53 L Pulse Oximetry 96 97 03/31/23 12:16 03/31/23 12:16 03/31/23 12:30 Temperature Pulse Rate 33 L 34 L Respiratory Rate 21 30 H Blood Pressure 103/53 L Pulse Oximetry 97 93 03/31/23 12:31 03/31/23 12:31 03/31/23 12:45 Temperature Pulse Rate 33 L 44 L Respiratory Rate 23 25 H Blood Pressure 98/50 L Pulse Oximetry 94 95 03/31/23 12:45 03/31/23 13:00 03/31/23 13:01 Temperature Pulse Rate 39 L 37 L Respiratory Rate 35 H 33 H Blood Pressure 112/58 L Pulse Oximetry 97 97 03/31/23 13:14 03/31/23 13:14 03/31/23 13:16 Temperature Pulse Rate 40 L Respiratory Rate 30 H Blood Pressure 90/55 L 96/55 L Pulse Oximetry 92 03/31/23 13:16 03/31/23 13:30 03/31/23 13:31 Temperature Pulse Rate 33 L 34 L 34 L Respiratory Rate 22 23 26 H Blood Pressure Pulse Oximetry 97 96 97 03/31/23 13:31 03/31/23 13:46 03/31/23 13:46 Temperature Pulse Rate 35 L Respiratory Rate 37 H Blood Pressure 94/55 L 98/50 L Pulse Oximetry 97 03/31/23 14:00 03/31/23 14:04 03/31/23 14:04 Temperature Pulse Rate 36 L 37 L Respiratory Rate 25 H 23 Blood Pressure 100/58 L Pulse Oximetry 93 97 03/31/23 14:16 03/31/23 14:16 03/31/23 14:30 Temperature Pulse Rate 36 L 37 L Respiratory Rate 23 25 H Blood Pressure 89/65 L Pulse Oximetry 100 97 03/31/23 14:32 03/31/23 14:32 03/31/23 14:45 Temperature Pulse Rate 38 L Respiratory Rate 34 H Blood Pressure 116/58 L 101/55 L Pulse Oximetry 91 03/31/23 14:45 03/31/23 15:00 03/31/23 15:01 Temperature Pulse Rate 38 L 44 L Respiratory Rate 23 30 H Blood Pressure 113/53 L Pulse Oximetry 95 95 03/31/23 15:01 03/31/23 15:15 03/31/23 15:15 Temperature Pulse Rate 39 L 40 L Respiratory Rate 25 H 33 H Blood Pressure 100/46 L Pulse Oximetry 95 95 03/31/23 15:30 03/31/23 15:30 Temperature Pulse Rate 40 L Respiratory Rate 24 Blood Pressure 115/55 L Pulse Oximetry 96 Narrative Exam Narrative: NAD Objective Labs 03/31/23 12:35 03/31/23 16:00 Labs: Laboratory Results - last 24 hr 03/31/23 03/31/23 03/31/23 09:40 09:40 09:40 WBC 4.3 L RBC 2.93 L Hgb 7.2 L Hct 23.0 L MCV 78.2 L MCH 24.6 L MCHC 31.5 RDW 17.7 H Plt Count 184 Neut % (Auto) 75.0 Lymph % (Auto) 12.0 L [place] % (Auto) 12.2 Eos % (Auto) 0.0 L Baso % (Auto) 0.8 Neut # (Auto) 3200 Lymph # (Auto) 500 L [place] # (Auto) 500 Eos # (Auto) 0 Baso # (Auto) 0 PT 28.7 H INR 2.5 H APTT 34 Sodium 125 L Potassium 6.9 H* D Chloride 98 Carbon Dioxide 19 L BUN 55 H Creatinine 1.11 Estimated GFR > 60 BUN/Creatinine Ratio 49.5 H Glucose 110 Calcium 8.8 Magnesium 2.5 H Total Bilirubin 0.7 AST 39 ALT 29 Alkaline Phosphatase 140 H Total Protein 5.8 L Albumin 3.3 L Globulin 2.5 Albumin/Globulin Ratio 1.3 Lipase 109 SARS-CoV-2 (PCR) Influenza A (RT-PCR) Influenza B (RT-PCR) RSV (PCR) Blood Type Antibody Screen 03/31/23 03/31/23 03/31/23 10:15 10:20 12:35 WBC 4.3 L RBC 2.85 L Hgb 7.0 L Hct 22.5 L MCV 78.8 L MCH 24.5 L MCHC 31.2 RDW 17.9 H Plt Count 169 Neut % (Auto) 71.3 Lymph % (Auto) 13.3 L [place] % (Auto) 15.1 H Eos % (Auto) 0.1 L Baso % (Auto) 0.2 Neut # (Auto) 3000 Lymph # (Auto) 600 L [place] # (Auto) 600 Eos # (Auto) 0 Baso # (Auto) 0 PT INR APTT Sodium Potassium Chloride Carbon Dioxide BUN Creatinine Estimated GFR BUN/Creatinine Ratio Glucose Calcium Magnesium Total Bilirubin AST ALT Alkaline Phosphatase Total Protein Albumin Globulin Albumin/Globulin Ratio Lipase SARS-CoV-2 (PCR) Negative Influenza A (RT-PCR) Flu a negative Influenza B (RT-PCR) Flu b negative RSV (PCR) Negative Blood Type A Positive Antibody Screen Negative 03/31/23 03/31/23 12:35 14:57 WBC RBC Hgb Hct MCV MCH MCHC RDW Plt Count Neut % (Auto) Lymph % (Auto) [place] % (Auto) Eos % (Auto) Baso % (Auto) Neut # (Auto) Lymph # (Auto) [place] # (Auto) Eos # (Auto) Baso # (Auto) PT INR APTT Sodium 127 L 128 L Potassium 6.0 H 6.0 H Chloride 100 100 Carbon Dioxide 21 L 22 BUN 53 H 51 H Creatinine 1.10 1.13 Estimated GFR > 60 > 60 BUN/Creatinine Ratio 48.2 H 45.1 H Glucose 72 L 90 Calcium 8.5 8.7 Magnesium Total Bilirubin AST ALT Alkaline Phosphatase Total Protein Albumin Globulin Albumin/Globulin Ratio Lipase SARS-CoV-2 (PCR) Influenza A (RT-PCR) Influenza B (RT-PCR) RSV (PCR) Blood Type Antibody Screen Assessment & Plan Assessment & Plan narrative: NEURO: -- Seek early mobility -- PT/OT consultation j RESP: -- On room air -- Encourage IS CVS: # Hypotension -- Secondary to dehydration -- Cont IVF resuscitation -- Holding BP meds -- MAP goal > 65 : # Hyperkalemia -- Secondary to eplerenone therapy -- Hold eplerenone -- Cont IVF -- Ordered calcium gluconate for memebrane stabilizer -- Trend BMP every 4 hours -- If K continues to rise then will consider a trial of diuretic # Metabolic acidosis -- Secondary to diarrhea and MIKAYLA -- Cont IVF resuscitation -- Trend BMP every 4 hours ENDO: -- Goal BS < 180 -- On ISS D/w bedside RN
[2023-03-31] MEDS: CALCIUM GLUCONATE 4.65 MEQ in SODIUM CHLORIDE 0.9% 50 ML 180 MEQ IV (16:33)
[2023-03-31] MEDS: ACETAMINOPHEN 325 MG TABLET 650 MG PO (16:33)
[2023-03-31] MEDS: LACTATED RINGERS 500 ML 1000 ML IV (16:33)
[2023-03-31 16:42] LABS: BUN Creatinine Ratio 47.7 (6-22); Blood Urea Nitrogen 52 mg/dL (9-20); Calcium 8.7 mg/dL (8.4-10.2); Carbon Dioxide 19 mmol/L (22-32); Chloride 100 mmol/L (98-107); Estimated Glomerular Filt Rate > 60 mL/min (>60); Glucose 89 mg/dL (80-110); HEMOLYSIS < 15 (0-50); Sodium 128 mmol/L (137-145)
[2023-03-31 16:45] LABS: Potassium 5.8 mmol/L (3.4-5.1)
--- NOTE | 2023-03-31 18:52 | PC.NURSE ---
Admit note: Pt admitted to room 231 at approximately 1550. Pt transferred from ED stretcher to bed. Pt alert to self and year, unsure of place, situation, and date. Pt sitting up in bed for dinner. Swallowing safely. Medications given per provider order (See MAR). This RN spoke to adult daughter Chasidy, who stated pt had torsemide discontinued a few weeks ago but continued to take his PO 20 mEq potassium TID. Pt using bedpan frequently, stooling liquid brown stool, sample obtained and sent. Bradycardic HR 35-45, provider aware Call light within reach, bed alarm active. Curtain open for better observation. Care ongoing. Will continue to monitor.
[2023-03-31 19:30] LABS: Adenovirus F 40/41 Not Detected (Not Detect); Astrovirus Not Detected (Not Detect); Campylobacter Not Detected (Not Detect); Clostridium difficile toxin AB Not Detected (Not Detect); Cryptosporidium Not Detected (Not Detect); Cyclospora cayetanensis Not Detected (Not Detect); Entamoeba histolytica Not Detected (Not Detect); Enteroaggregative E.coli Not Detected (Not Detect); Enteropathogenic E.coli Not Detected (Not Detect); Enterotoxigenic E.coli It/st Not Detected (Not Detect); Giardia lamblia Not Detected (Not Detect); Norovirus GI/GII Not Detected (Not Detect); Plesiomonsa shigelloides Not Detected (Not Detect); Rotavirus A Not Detected (Not Detect); Salmonella Not Detected (Not Detect); Sapovirus Not Detected (Not Detect); Shiga-like toxin-prod E.coli Not Detected (Not Detect); Shigella/Enteroinvasive E.coli Not Detected (Not Detect); Vibrio Not Detected (Not Detect); Vibrio cholerae Not Detected (Not Detect); Yersinia enterocolitica Not Detected (Not Detect)
--- NOTE | 2023-03-31 20:10 | DI.RAD.S_ITS ---
PROCEDURE: XR CHEST 1V INDICATIONS: shortness of breath TECHNIQUE: One view of the chest was acquired. COMPARISON: [facility], , XR CHEST 1V, 01/20/2023, 12:06. FINDINGS: Surgical changes and devices: Postsurgical changes redemonstrated within the mediastinum Lungs and pleura: Lungs are clear. No pleural effusions or pneumothorax. Mediastinum: Mediastinal contours are unchanged. Heart size is enlarged. Bones and chest wall: No suspicious bony lesions. Overlying soft tissues appear unremarkable. IMPRESSION: 1. No acute cardiopulmonary disease. Dictated by: Zechariah Solis M.D. on 03/31/2023 at 22:29 Approved by: Zechariah Solis M.D. on 03/31/2023 at 22:30
--- NOTE | 2023-03-31 20:12 | PM.ICURNDS ---
- Date Patient Seen: 03/31/23 Time Patient Seen: 20:12 :: This patient was seen via real time interactive two-way audiovisual telecommunication. Note: Patient admitted for hyperkalemia secondary to eplerenone therapy. On IVF and potassium down to 5.8. Camera assessment showed patient is having increased WOB and tachypnea to the 30s. IVF stopped and ordered lasix 40 mg IV once and CXR. D/w bedside RN. Cont following up BMP every 4 hours.
[2023-03-31 20:50] LABS: BUN Creatinine Ratio 46.7 (6-22); Blood Urea Nitrogen 50 mg/dL (9-20); Calcium 8.4 mg/dL (8.4-10.2); Carbon Dioxide 21 mmol/L (22-32); Chloride 100 mmol/L (98-107); Estimated Glomerular Filt Rate > 60 mL/min (>60); Glucose 107 mg/dL (80-110); HEMOLYSIS < 15 (0-50); Potassium 5.1 mmol/L (3.4-5.1); Sodium 129 mmol/L (137-145)
[2023-03-31] MEDS: FUROSEMIDE 40 MG/4 ML VIAL IV (21:49)
[2023-04-01] VITALS (50 sets, daily range): BP systolic 81–112; BP diastolic 44–66; PULSE 58–80; RESP 11–32; TEMP 36.4–37.2; O2SAT 84–99
[2023-04-01 00:46] LABS: BUN Creatinine Ratio 49.5 (6-22); Blood Urea Nitrogen 49 mg/dL (9-20); Calcium 8.3 mg/dL (8.4-10.2); Carbon Dioxide 24 mmol/L (22-32); Chloride 99 mmol/L (98-107); Estimated Glomerular Filt Rate > 60 mL/min (>60); Glucose 91 mg/dL (80-110); HEMOLYSIS < 15 (0-50); Potassium 3.9 mmol/L (3.4-5.1); Sodium 129 mmol/L (137-145)
[2023-04-01 04:52] LABS: Add Manual Diff / Slide Review NO; Basophils Absolute Auto 0 /uL (0-100); Basophils Percent Auto 1.1 % (0-2); Eosinophils Absolute Auto 100 /uL (0-450); Eosinophils Percent Auto 2.2 % (2-4); Hematocrit 21.6 % (41-53); Lymphocytes Absolute Auto 600 /uL (1100-4500); Lymphocytes Percent Auto 14.9 % (25-40); Mean Corpuscular HGB Conc 32.2 % (30-36); Mean Corpuscular Hemoglobin 24.8 PG (26-34); Mean Corpuscular Volume 76.9 fL (80-100); Monocytes Absolute Auto 700 /uL (0-900); Monocytes Percent Auto 15.5 % (3-14); Neutrophils Absolute Auto 2900 /uL (1500-7000); Neutrophils Percent Auto 66.3 % (50-75); Platelet Count 189 X10^3/uL (150-400); Red Blood Cell Count 2.81 X10^6/uL (4.5-5.9); Red Cell Distribution Width 17.4 % (11.6-14.8); White Blood Cell Count 4.3 X10^3/uL (4.5-11.0)
[2023-04-01 05:06] LABS: BUN Creatinine Ratio 46.7 (6-22); Blood Urea Nitrogen 43 mg/dL (9-20); Calcium 8.1 mg/dL (8.4-10.2); Carbon Dioxide 25 mmol/L (22-32); Chloride 97 mmol/L (98-107); Estimated Glomerular Filt Rate > 60 mL/min (>60); Glucose 83 mg/dL (80-110); HEMOLYSIS < 15 (0-50); Potassium 3.1 mmol/L (3.4-5.1); Sodium 130 mmol/L (137-145)
--- NOTE | 2023-04-01 08:02 | P.PN_ITS ---
Subjective Subjective Interval history: Patient feels much better. No dyspnea or abdomen pain. Low potassium this AM. On O2 overnight (possible JUSTINE). Exam Vital Signs (past 8 hours): - 04/01/23 00:36 04/01/23 01:00 04/01/23 01:00 Temperature Pulse Rate 75 74 Respiratory Rate 23 21 Blood Pressure 96/52 L Pulse Oximetry 94 94 Oxygen Flow Rate 2 2 2 04/01/23 01:15 04/01/23 02:00 04/01/23 02:00 Temperature Pulse Rate 74 65 Respiratory Rate 25 H 25 H Blood Pressure 95/52 L Pulse Oximetry 92 95 Oxygen Flow Rate 2 04/01/23 02:22 04/01/23 03:00 04/01/23 03:00 Temperature Pulse Rate 65 63 Respiratory Rate 18 18 Blood Pressure 87/51 L Pulse Oximetry 96 99 Oxygen Flow Rate 2 2 04/01/23 03:03 04/01/23 03:03 04/01/23 03:04 Temperature Pulse Rate 63 Respiratory Rate 20 Blood Pressure 81/44 L 81/44 L Pulse Oximetry 97 Oxygen Flow Rate 2 2 2 04/01/23 03:04 04/01/23 03:06 04/01/23 03:06 Temperature Pulse Rate 66 72 Respiratory Rate 19 18 Blood Pressure 98/52 L Pulse Oximetry 97 96 Oxygen Flow Rate 2 2 2 04/01/23 04:00 04/01/23 04:00 04/01/23 04:27 Temperature 97.8 F Pulse Rate 63 74 Respiratory Rate 17 27 H Blood Pressure 99/56 L Pulse Oximetry 89 L 91 Oxygen Flow Rate 2 2 2 04/01/23 05:00 04/01/23 05:00 04/01/23 05:16 Temperature Pulse Rate 67 60 Respiratory Rate 23 14 Blood Pressure 97/55 L Pulse Oximetry 93 90 L Oxygen Flow Rate 2 2 2 04/01/23 06:00 04/01/23 06:00 04/01/23 06:46 Temperature Pulse Rate 66 71 Respiratory Rate 22 24 Blood Pressure 85/60 L Pulse Oximetry 92 Oxygen Flow Rate 2 2 2 04/01/23 07:00 04/01/23 07:00 04/01/23 07:02 Temperature Pulse Rate 64 63 Respiratory Rate 26 H 22 Blood Pressure 87/53 L Pulse Oximetry 90 L 89 L Oxygen Flow Rate 04/01/23 07:02 04/01/23 07:25 04/01/23 07:25 Temperature Pulse Rate 64 Respiratory Rate 22 Blood Pressure 87/48 L 94/55 L Pulse Oximetry 89 L Oxygen Flow Rate 04/01/23 07:30 Temperature Pulse Rate 58 L Respiratory Rate 22 Blood Pressure Pulse Oximetry 87 L Oxygen Flow Rate Oxygen Flow Rate 2 Narrative Exam Narrative: NAD, normal speech and calm. Atraumatic head, EOMI. Neck supple and midline trachea. Lungs CTA, normal rate and effort. Heart RRR, without murmur, gallop, or rub. Abdomen Soft, NT, ND No leg edema. No skin rash. Objective ECG Impression: Pending Labs 04/01/23 04:40 04/01/23 04:40 Labs: Laboratory Results - last 24 hr 03/31/23 03/31/23 03/31/23 09:40 09:40 09:40 WBC 4.3 L RBC 2.93 L Hgb 7.2 L Hct 23.0 L MCV 78.2 L MCH 24.6 L MCHC 31.5 RDW 17.7 H Plt Count 184 Neut % (Auto) 75.0 Lymph % (Auto) 12.0 L [place] % (Auto) 12.2 Eos % (Auto) 0.0 L Baso % (Auto) 0.8 Neut # (Auto) 3200 Lymph # (Auto) 500 L [place] # (Auto) 500 Eos # (Auto) 0 Baso # (Auto) 0 PT 28.7 H INR 2.5 H APTT 34 Sodium 125 L Potassium 6.9 H* D Chloride 98 Carbon Dioxide 19 L BUN 55 H Creatinine 1.11 Estimated GFR > 60 BUN/Creatinine Ratio 49.5 H Glucose 110 Calcium 8.8 Magnesium 2.5 H Total Bilirubin 0.7 AST 39 ALT 29 Alkaline Phosphatase 140 H Total Protein 5.8 L Albumin 3.3 L Globulin 2.5 Albumin/Globulin Ratio 1.3 Lipase 109 Stl C. cayetanensis PCR Stool Rotavirus (PCR) Stool Adenovirus (PCR) Stool Astrovirus (PCR) Stool Cryptosporidium PCR Stl E.coli Shiga Tox PCR St Sh/Enteroin Ecoli PCR Stool E coli O157 PCR Stl Enterotoxigenic E PCR Stool EPEC (PCR) Stl E. histolytica PCR Stool Giardia Lamblia PCR Stool Sapovirus (PCR) Stl P. shigelloides PCR St Y.enterocolitica PCR Stool Vibrio (PCR) Stl Vibrio cholerae PCR Stl Enteroaggr Ecoli PCR Stl Norovirus GI/GII PCR Campylobacter (PCR) C. difficile Tox (PCR) SARS-CoV-2 (PCR) Influenza A (RT-PCR) Influenza B (RT-PCR) RSV (PCR) Salmonella (PCR) Blood Type Antibody Screen 03/31/23 03/31/23 03/31/23 10:15 10:20 12:35 WBC 4.3 L RBC 2.85 L Hgb 7.0 L Hct 22.5 L MCV 78.8 L MCH 24.5 L MCHC 31.2 RDW 17.9 H Plt Count 169 Neut % (Auto) 71.3 Lymph % (Auto) 13.3 L [place] % (Auto) 15.1 H Eos % (Auto) 0.1 L Baso % (Auto) 0.2 Neut # (Auto) 3000 Lymph # (Auto) 600 L [place] # (Auto) 600 Eos # (Auto) 0 Baso # (Auto) 0 PT INR APTT Sodium Potassium Chloride Carbon Dioxide BUN Creatinine Estimated GFR BUN/Creatinine Ratio Glucose Calcium Magnesium Total Bilirubin AST ALT Alkaline Phosphatase Total Protein Albumin Globulin Albumin/Globulin Ratio Lipase Stl C. cayetanensis PCR Stool Rotavirus (PCR) Stool Adenovirus (PCR) Stool Astrovirus (PCR) Stool Cryptosporidium PCR Stl E.coli Shiga Tox PCR St Sh/Enteroin Ecoli PCR Stool E coli O157 PCR Stl Enterotoxigenic E PCR Stool EPEC (PCR) Stl E. histolytica PCR Stool Giardia Lamblia PCR Stool Sapovirus (PCR) Stl P. shigelloides PCR St Y.enterocolitica PCR Stool Vibrio (PCR) Stl Vibrio cholerae PCR Stl Enteroaggr Ecoli PCR Stl Norovirus GI/GII PCR Campylobacter (PCR) C. difficile Tox (PCR) SARS-CoV-2 (PCR) Negative Influenza A (RT-PCR) Flu a negative Influenza B (RT-PCR) Flu b negative RSV (PCR) Negative Salmonella (PCR) Blood Type A Positive Antibody Screen Negative 03/31/23 03/31/23 03/31/23 12:35 14:57 16:00 WBC RBC Hgb Hct MCV MCH MCHC RDW Plt Count Neut % (Auto) Lymph % (Auto) [place] % (Auto) Eos % (Auto) Baso % (Auto) Neut # (Auto) Lymph # (Auto) [place] # (Auto) Eos # (Auto) Baso # (Auto) PT INR APTT Sodium 127 L 128 L 128 L Potassium 6.0 H 6.0 H 5.8 H Chloride 100 100 100 Carbon Dioxide 21 L 22 19 L BUN 53 H 51 H 52 H Creatinine 1.10 1.13 1.09 Estimated GFR > 60 > 60 > 60 BUN/Creatinine Ratio 48.2 H 45.1 H 47.7 H Glucose 72 L 90 89 Calcium 8.5 8.7 8.7 Magnesium Total Bilirubin AST ALT Alkaline Phosphatase Total Protein Albumin Globulin Albumin/Globulin Ratio Lipase Stl C. cayetanensis PCR Stool Rotavirus (PCR) Stool Adenovirus (PCR) Stool Astrovirus (PCR) Stool Cryptosporidium PCR Stl E.coli Shiga Tox PCR St Sh/Enteroin Ecoli PCR Stool E coli O157 PCR Stl Enterotoxigenic E PCR Stool EPEC (PCR) Stl E. histolytica PCR Stool Giardia Lamblia PCR Stool Sapovirus (PCR) Stl P. shigelloides PCR St Y.enterocolitica PCR Stool Vibrio (PCR) Stl Vibrio cholerae PCR Stl Enteroaggr Ecoli PCR Stl Norovirus GI/GII PCR Campylobacter (PCR) C. difficile Tox (PCR) SARS-CoV-2 (PCR) Influenza A (RT-PCR) Influenza B (RT-PCR) RSV (PCR) Salmonella (PCR) Blood Type Antibody Screen 03/31/23 03/31/23 04/01/23 18:00 20:27 00:21 WBC RBC Hgb Hct MCV MCH MCHC RDW Plt Count Neut % (Auto) Lymph % (Auto) [place] % (Auto) Eos % (Auto) Baso % (Auto) Neut # (Auto) Lymph # (Auto) [place] # (Auto) Eos # (Auto) Baso # (Auto) PT INR APTT Sodium 129 L 129 L Potassium 5.1 3.9 D Chloride 100 99 Carbon Dioxide 21 L 24 BUN 50 H 49 H Creatinine 1.07 0.99 Estimated GFR > 60 > 60 BUN/Creatinine Ratio 46.7 H 49.5 H Glucose 107 91 Calcium 8.4 8.3 L Magnesium Total Bilirubin AST ALT Alkaline Phosphatase Total Protein Albumin Globulin Albumin/Globulin Ratio Lipase Stl C. cayetanensis PCR Not detected Stool Rotavirus (PCR) Not detected Stool Adenovirus (PCR) Not detected Stool Astrovirus (PCR) Not detected Stool Cryptosporidium PCR Not detected Stl E.coli Shiga Tox PCR Not detected St Sh/Enteroin Ecoli PCR Not detected Stool E coli O157 PCR Not Reportable Stl Enterotoxigenic E PCR Not detected Stool EPEC (PCR) Not detected Stl E. histolytica PCR Not detected Stool Giardia Lamblia PCR Not detected Stool Sapovirus (PCR) Not detected Stl P. shigelloides PCR Not detected St Y.enterocolitica PCR Not detected Stool Vibrio (PCR) Not detected Stl Vibrio cholerae PCR Not detected Stl Enteroaggr Ecoli PCR Not detected Stl Norovirus GI/GII PCR Not detected Campylobacter (PCR) Not detected C. difficile Tox (PCR) Not detected SARS-CoV-2 (PCR) Influenza A (RT-PCR) Influenza B (RT-PCR) RSV (PCR) Salmonella (PCR) Not detected Blood Type Antibody Screen 04/01/23 04/01/23 04:40 04:40 WBC 4.3 L RBC 2.81 L Hgb 7.0 L Hct 21.6 L MCV 76.9 L MCH 24.8 L MCHC 32.2 RDW 17.4 H Plt Count 189 Neut % (Auto) 66.3 Lymph % (Auto) 14.9 L [place] % (Auto) 15.5 H Eos % (Auto) 2.2 Baso % (Auto) 1.1 Neut # (Auto) 2900 Lymph # (Auto) 600 L [place] # (Auto) 700 Eos # (Auto) 100 Baso # (Auto) 0 PT INR APTT Sodium 130 L Potassium 3.1 L Chloride 97 L Carbon Dioxide 25 BUN 43 H Creatinine 0.92 Estimated GFR > 60 BUN/Creatinine Ratio 46.7 H Glucose 83 Calcium 8.1 L Magnesium Total Bilirubin AST ALT Alkaline Phosphatase Total Protein Albumin Globulin Albumin/Globulin Ratio Lipase Stl C. cayetanensis PCR Stool Rotavirus (PCR) Stool Adenovirus (PCR) Stool Astrovirus (PCR) Stool Cryptosporidium PCR Stl E.coli Shiga Tox PCR St Sh/Enteroin Ecoli PCR Stool E coli O157 PCR Stl Enterotoxigenic E PCR Stool EPEC (PCR) Stl E. histolytica PCR Stool Giardia Lamblia PCR Stool Sapovirus (PCR) Stl P. shigelloides PCR St Y.enterocolitica PCR Stool Vibrio (PCR) Stl Vibrio cholerae PCR Stl Enteroaggr Ecoli PCR Stl Norovirus GI/GII PCR Campylobacter (PCR) C. difficile Tox (PCR) SARS-CoV-2 (PCR) Influenza A (RT-PCR) Influenza B (RT-PCR) RSV (PCR) Salmonella (PCR) Blood Type Antibody Screen [facility] Medical History Anemia Asthma BPH w urinary obs/LUTS Chicken pox Chronic anticoagulation Chronic atrial fibrillation Chronic diastolic CHF (congestive heart failure), NYHA class 1 Coronary artery disease Crohn's disease Diverticular disease Easy bruisability Essential hypertension Fractures Hearing loss Hemorrhoid History of colonic polyps History of urinary incontinence (~2018) Measles Mixed hyperlipidemia Mumps Myocardial infarction Obesity Osteoarthritis Positive PPD Primary osteoarthritis involving multiple joints Pulmonary hypertension Right inguinal hernia Tinnitus Vision disorder Surgical History Anesthesia H/O mitral valve replacement (~03/2017) Hx of heart artery stent (~1994) Family History Mother Congestive heart failure Father Coronary artery disease Social History household members: spouse and family Smoking Status: Never smoker alcohol intake: current substance use type: does not use Type(s) of exercise: walking frequency: daily Assessment & Plan Assessment & Plan narrative: [place] [address] History & Physical Report Patient: Tramaine Powell MR#: [id number] : 1940 Acct:[id number] Age/Sex: 82 / M ? Date of Service: 03/31/23 Provider:?Andrzej Uribe MD History of Present Illness History of Present Illness Date Patient Seen: 03/31/23 Date of Onset of Symptoms: 03/26/23 Chief complaint: Weakness/diarrhea Narrative: The patient presents to ED for 5 days of watery diarrhea and weakness. He denies vomiting. He called EMS today and was given IVF en route. Here, he was found to have severe hypokalemia as well as hyponatremia and a junctional bradycardia (rate 30's). 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 He was given insulin and dextrose in ED. He improved to 6.0 with a Creatinine of 1.11. He will get kayexalate next. He has also been getting IV fluid resucitation in the ED. His repeat K was 6.0. Heart rate has increased to 40's. He is listless and notes some abdomen pain and poor appetite. He has been ill for 5 days. No rectal bleeding. He states that it feels a bit like hos Crohn's. He denies fevers or URI symptoms such as cough. He is Full Code and is proxy. PFSH Medical History? Anemia Asthma BPH w urinary obs/LUTS Chicken pox Chronic anticoagulation Chronic atrial fibrillation Chronic diastolic CHF (congestive heart failure), NYHA class 1 Coronary artery disease Crohn's disease Diverticular disease Easy bruisability Essential hypertension Fractures Hearing loss Hemorrhoid History of colonic polyps History of urinary incontinence (~2018) Measles Mixed hyperlipidemia Mumps Myocardial infarction Obesity Osteoarthritis Positive PPD Primary osteoarthritis involving multiple joints Pulmonary hypertension Right inguinal hernia Tinnitus Vision disorder Surgical History? Anesthesia H/O mitral valve replacement (~03/2017) Hx of heart artery stent (~1994) Family History? Mother Congestive heart failureFather Coronary artery disease Social History? household members:? spouse and family Smoking Status:? Never smoker alcohol intake:? current substance use type:? does not use Type(s) of exercise:? walking frequency:? daily Meds Home Medications and Allergies Home Medications ?Medication ?Instructions ?Recorded ?Confirmed ?Type albuterol sulfate 90 mcg/actuation 2 puff INH PRN PRN Shortness Of 03/22/17 03/31/23 History aerosol inhaler (Proventil HFA) Breath ##0 ? ? ? mesalamine 500 mg capsule,extended 1,000 mg PO BID ##0 03/24/17 03/31/23 History release (Pentasa) ? calcium carbonate 500 mg-vitamin 3 tab PO DAILY ##0 03/31/17 03/31/23 History D3 2.5 mcg (100 unit) chewable ? tablet ? ferrous sulfate 325 mg (65 mg 325 mg PO BID 05/18/18 03/31/23 History iron) tablet ? finasteride 5 mg tablet 5 mg PO DAILY 05/18/18 03/31/23 History folic acid 1 mg tablet 1 mg PO DAILY 05/18/18 03/31/23 History loratadine 10 mg tablet 10 mg PO DAILY 05/18/18 03/31/23 History nitroglycerin 0.4 mg sublingual 0.4 mg sublingual Q5-15M PRN ChestA 05/18/18 03/31/23 History tablet (Nitrostat) Pain ? ? ? simvastatin 40 mg tablet 20 mg PO BEDTIME 12/07/21 03/31/23 History fluticasone propionate 50 1 spray intranasal DAILY PRN 02/07/22 03/31/23 History mcg/actuation nasal allergy symptoms ? ? ? spray,suspension ? acetaminophen 325 mg tablet 650 mg PO Q4H PRN Pain 04/24/22 03/31/23 History alfuzosin 10 mg tablet,extended 10 mg PO DAILY 04/24/22 03/31/23 History release 24 hr ? ascorbic acid (vitamin C) 500 mg 500 mg PO DAILY 04/24/22 03/31/23 History tablet ? neomycin-polymyxin 1 ea topical DAILY PRN Skin 04/24/22 03/31/23 History V-[id number]-fkzwylybavbzjr top Irritation ? ? ? ointment ? omeprazole 20 mg tablet,delayed 20 mg PO DAILY 04/24/22 03/31/23 History release ? carvedilol 12.5 mg tablet 12.5 mg PO BID 01/13/23 03/31/23 History isosorbide mononitrate 60 mg 60 mg PO DAILY 01/13/23 03/31/23 History tablet,extended release 24 hrF ? potassium chloride 20 mEq 20 meq PO TID 01/13/23 03/31/23 History tablet,extended release ? metolazone 2.5 mg tablet 2.5 mg PO DAILY #90 tabs 02/25/23 03/31/23 Rx eplerenone 50 mg tablet 50 mg PO DAILY #90 tabs 03/04/23 03/31/23 Rx tamsulosin 0.4 mg capsule 0.4 mg PO DAILY #90 caps 03/04/23 03/31/23 Rx apixaban 5 mg tablet (Eliquis) 5 mg PO BID #180 tabs 03/20/23 03/31/23 Rx warfarin 5 mg tablet 5 mg PO DAILY 03/31/23 03/31/23 History Allergies Allergy/AdvReac Type Severity Reaction Status Date / Time ibuprofen Allergy Mild NOT GOOD Verified 03/31/23 10:39 ? ? ? FOR ? STOMACH ?B ? BLEEDING ? ? iodine Allergy Mild UNKNOWN Verified 03/31/23 10:39 Sulfa (Sulfonamide Allergy Mild BURNED A Verified 03/31/23 10:39 Antibiotics) ? ? HOLE THRU ? INTESTINES ? ? [id number] Allergy Mild BREAKS OUT Verified 03/31/23 10:39 ? ? ? IN ? ? ?B ? ? BLOTCHES ? AND ITCHING ? ? terazosin Allergy ? Hypotension VerifiedC 03/31/23 10:39 spironolactone AdvReac ? ? Verified 03/31/23 10:39 Review of Systems Review of Systems Narrative: All else reviewed and otherwise negative except as noted in the H&P. Exam Vital Signs (past 8 hours): - ? 03/31/2309:35 03/31/2309:39 03/31/2309:45 Temperature 97.9 F ? ? Pulse Rate ? 34 L ? Respiratory Rate ? 23 ? Blood Pressure ? ? 84/47 L Pulse Oximetry ? 03/31/2309:45 03/31/2309:50 03/31/2309:50 Temperature ? ? ? Pulse Rate 31 L ? 34 L Respiratory Rate 22 ? 25 H Blood Pressure ? 91/53 L ? Pulse Oximetry 93 ? 98 ? 03/31/2309:56B 03/31/2309:56 03/31/2310:00 Temperature ? ? ? Pulse Rate ? 36 L ? Respiratory Rate ? 42 H ? Blood Pressure 102/68 ? 113/55 L Pulse Oximetry ? 98 ? ? 03/31/2310:00 03/31/2310:07 03/31/2310:07 Temperature ? ? ? Pulse Rate 36 L ? 35 L Respiratory Rate 0 L ? 7 L Blood Pressure ? 118/52 L ? Pulse Oximetry 96 ? 90 L ? 03/31/2310:10 03/31/2310:10 03/31/2310:15 Temperature ?B ? ? Pulse Rate ? 35 L ? Respiratory Rate ? 14 ? Blood Pressure 108/54 L ? 112/57 L Pulse Oximetry ? 96 ? ? 03/31/2310:15 03/31/2310:28 03/31/2310:28 Temperature ? ? ? Pulse Rate 34 L 50 L ? Respiratory Rate 17 25 H ? Blood Pressure ? ? 100/50 L Pulse Oximetry 92 85 L ? ? 03/31/2310:30 03/31/2310:30 03/31/2310:40 Temperature ? ? ? Pulse Rate ? 37 L 39 L Respiratory Rate ? 20 22 Blood Pressure 103/52 L ? ? C Pulse Oximetry ? 97 96 ? 03/31/2310:40 03/31/2310:50 03/31/2310:50 Temperature ? ? ? Pulse Rate ? ? 39 L Respiratory Rate ? ? 17 Blood Pressure 95/54 L 94/58 L ? Pulse Oximetry ? ? 97 ? 03/31/2311:00 03/31/2311:01 03/31/2311:01 Temperature ? ? ? Pulse Rate 39 L ? 39 L Respiratory Rate 18 ? 17 Blood Pressure ? 115/53 L ? Pulse Oximetry 99 ? 98 ? 03/31/2311:10 03/31/2311:10 03/31/2311:30 Temperature ? ? ? Pulse Rate ? 40 L ? Respiratory Rate ? 19 ? Blood Pressure 112/57 L ? 130/58 L Pulse Oximetry ? 98 ? ? 03/31/2311:30 03/31/2311:50 03/31/2311:50 Temperature ? ? ? Pulse Rate 39 L 35 L ? Respiratory Rate 21 22 ? Blood Pressure ? ? 100/54 L Pulse Oximetry 98B 96 ? ? 03/31/2312:00 03/31/2312:01 03/31/2312:01 Temperature ? ? ? Pulse Rate 35 L 34 L ? Respiratory Rate 20 27 H ? Blood Pressure ? ? 120/53 L Pulse Oximetry 96 97 ? ? 03/31/2312:16 03/31/2312:16 03/31/2312:30 Temperature ? ? ? Pulse Rate ? 33 L 34 L Respiratory Rate ? 21 30 H Blood Pressure 103/53 L ? ? Pulse Oximetry ? 97 93 ? 03/31/2312:31 03/31/2312:31 03/31/2312:45 Temperature ? ? ? Pulse Rate 33 L ? 44 L Respiratory Rate 23 ? 25 H Blood Pressure ? 98/50 L ? Pulse Oximetry 94 ? 95 ? 03/31/2312:45 03/31/2313:00 03/31/2313:01 Temperature ? ? ? Pulse Rate ? 39 L 37 L Respiratory Rate ? 35 H 33 H Blood Pressure 112/58 L ? ? Pulse Oximetry ? 97 97 ? 03/31/2313:14 03/31/2313:14 03/31/2313:16 Temperature ? ? ? Pulse Rate ? 40 L ? Respiratory Rate ? 30 HB ? Blood Pressure 90/55 L ? 96/55 L Pulse Oximetry ? 92 ? ? 03/31/2313:16 03/31/2313:30 03/31/2313:31 Temperature ? ? ? Pulse Rate 33 L 34 L 34 L Respiratory Rate 22 23 26 H Blood PressureB ? ? ? Pulse Oximetry 97 96 97 ? 03/31/2313:31 03/31/2313:46 03/31/2313:46 Temperature ? ? ? Pulse Rate ? ? 35 L Respiratory Rate ? ? 37 H Blood Pressure 94/55 L 98/50 L ? Pulse Oximetry ? ? 97 ? 03/31/2314:00 03/31/2314:04 03/31/2314:04 Temperature ? ? ? Pulse Rate 36 L ? 37 L Respiratory Rate 25 H ? 23 Blood Pressure ? 100/58 L ? Pulse Oximetry 93 ? 97 Narrative Exam Narrative: NAD,?slow and softl speech, listless. Atraumatic head EOMI, anicteric sclera Dry oral mucosa Neck supple and trachea midline. Lungs CTA with normal effort CV RRR, no MGR. Bradycardic. No leg edema Normal skin, decreased turger Normal joints No rash or bruising Moves all extremities Normal judgement Objective ECG Impression: Junctional bradycardia. Labs 03/31/23 12:35? 03/31/23 14:57? Labs: Laboratory Results - last 24 hr ? 03/31/23 03/31/2323 ? 09:40 09:40B 09:40 WBC ?4.3 L ? ? RBC ?2.93 L ? ? Hgb ?7.2 L ? ? Hct ?23.0 L ? ? D MCV ?78.2 L ? ? MCH ?24.6 L ? ? MCHC ?31.5 ? ? RDW ?17.7 H ? ? Plt Count ?184 ? ? Neut % (Auto) ?75.0 ? ? Lymph % (Auto) ?12.0 L ? ? [place] % (Auto) ?12.2 ? ? Eos % (Auto) ?0.0 L ? ? Baso % (Auto) ?0.8 ? ? Neut # (Auto) ?3200 ? ? Lymph # (Auto) ?500 L ? ? [place] # (Auto) ?500 ? ? Eos # (Auto) ?0 ? ? Baso # (Auto) ?0 ? ? PT ? ?28.7 H ? INR ? ?2.5 H ? APTT ? ?34 ? Sodium ?B ? ?125 L Potassium ? ? ?6.9 H* D Chloride ? ? ?98 Carbon Dioxide ? ? ?19 L BUN ? ? ?55 H Creatinine ? ? ?1.11 Estimated GFR ? ? ?> 60 BUN/Creatinine Ratio ? ? ?49.5 H Glucose ? ? ?110 Calcium ? ? ?8.8 Magnesium ? ? ?2.5 H Total Bilirubin ? ? ?0.7 AST ? ? ?39 ALT ? ? ?29 Alkaline Phosphatase ? ? ?140 H Total Protein ? ? ?5.8 L Albumin ? ? ?3.3 L Globulin ? ? ?2.5 Albumin/Globulin Ratio ? ? ?1.3 Lipase ? ? ?109 SARS-CoV-2 (PCR) ? ? ? Influenza A (RT-PCR) ? ? ? Influenza B (RT-PCR) ? ? ? RSV (PCR) ? ? ? Blood Type ? ? ? Antibody Screen ? 03/31/23 03/31/23 03/31/23 ? 10:15 10:20 12:35 WBC ? ? ?4.3 L RBC ? ? ?2.85 L Hgb ? ? ?7.0 L Hct ?C ? ?22.5 L MCV ? ? ?78.8 L MCH ? ? ?24.5 L MCHC ? ? ?31.2 RDW ? ? ?17.9 H Plt Count ? ? ?169 Neut % (Auto) ? ? ?71.3 Lymph % (Auto) ? ? ?13.3 L [place] % (Auto) ? ? ?15.1 H Eos % (Auto) ? ? ?0.1 L Baso % (Auto) ? ? ?0.2 Neut # (Auto) ? ? ?3000 Lymph # (Auto) ? ? ?600 L [place] # (Auto) ? ? ?600 Eos # (Auto) ? ? ?0 Baso # (Auto) ? ? ?0 PT ? ? ? INR ? ? ? APTT ? ? ? Sodium ? ? ? Potassium ? ? ? Chloride ? ? ? Carbon Dioxide ? ? ? BUN ? ? ? Creatinine ? ? ? Estimated GFR ? ? ? BUN/Creatinine Ratio ? ? ? Glucose ? ? ? Calcium ? ? ? Magnesium ? ? ? Total Bilirubin ? ? ? AST ? ? ? ALT ? ? ? Alkaline Phosphatase ? ? ? Total Protein ?C ? ? Albumin ? ? ? Globulin ? ? ? Albumin/Globulin Ratio ? ? ? Lipase ? ? ? SARS-CoV-2 (PCR) ? ?Negative ? Influenza A (RT-PCR) ? ?Flu a negative ? Influenza B (RT-PCR) ? ?Flu b negative ? RSV (PCR) ? ?Negative ? Blood Type ?A Positive ? ? Antibody Screen ?Negative ? ? ? 03/31/23 ? 12:35 WBC ? RBC ? Hgb ? Hct ? MCV ? MCH ? MCHC ? RDW ? Plt Count ? Neut % (Auto) ? Lymph % (Auto) ? [place] % (Auto) ? Eos % (Auto) ? Baso % (Auto) ? Neut # (Auto) ? Lymph # (Auto) ? [place] # (Auto) ? Eos # (Auto) ? Baso # (Auto) ? PT ? INR ? APTT ? Sodium ?127 L D Potassium ?6.0 H Chloride ?100 Carbon Dioxide ?21 L BUN ?53 H Creatinine ?1.10 Estimated GFR ?> 60 BUN/Creatinine Ratio ?48.2 H Glucose ?72 L Calcium ?8.5 Magnesium ? Total Bilirubin ? AST ? ALT ? Alkaline Phosphatase ? Total Protein ? Albumin ? Globulin ? Albumin/Globulin Ratio ? Lipase ? SARS-CoV-2 (PCR) ? Influenza A (RT-PCR) ? Influenza B (RT-PCR) ? RSV (PCR) ? Blood Type ? Antibody Screen ? Assessment & Plan 1. Junctional bradycardia, POA and resolved. -check ECG, hold home meds. 2. Hyperkalemia, POA and resolved. -monitor. 3. Hypokalemia, new and active. -replete. 4. Diarrhea (Crohns)? with volume depletion, POA and active. -IVF and follow. Neg CDT and Campylobacter. 5. Hypovolemic hyponatremia, POA and improved. -IVF (NS) and monitor 6. Anemia, POA and active. -follow and FOBT. Iron studies, B12 and Folate. 01/24. -Monitor. 7. Pulmonary hypertension, POA and stable. 8. HTN, POA and stable. -hold usual medications while volume depleted. Monitor. 9. Chronic atrial fibrillation on anticoagulation, POA and stable. 10. CAD, POA and stable. 11. Asthma, POA and stable. 12. Crohns disease, POA. -will add CRP to assess for possible disease activity (pending). Full Code is proxy decision maker. Time Spent With Patient Time with patient: 30 to 49 minutes with 50% spent counseling/coordinating care Quality VTE Deep Vein Thrombosis/Pulmonary Embolism Present on Admission: No
--- NOTE | 2023-04-01 08:18 | CM.DANOTE ---
Addendum entered by Rosa Manuel R.N. 04/01/23 13:47: Patient is up in his chair, alert. Has confirmed he wants to go home when able. Has catheter in place at this time. Spouse will be in to see patient with dolores, confirmed that his daughter also lives nearby. Original Note: DCP: Case received, EMR reviewed and met with patient. Was only able to get limited information from patient. Completed DCP assessment based upon information currently available in EMR, as well as his previous hospital visit. Patient is an 82 year old male who admitted yesterday afternoon to the care of the hospitalist team. PCP: Dr. Roth. Payer: confirmed: Medicare/[employer]. Patient came to the hospital via ambulance secondary to having increased weakness, 5 days of diarrhea. Patient had also complained about decreased urination. Patient has history of bradycardia and hypotension. Patient was admitted for bradycardia, hyperkalemia. Attempted to meet with patient, laying in bed, answered limited questions. Confirmed that patient resides in [place] with spouse, Italia. Checked recent visit here 03/11, daughter, Chasidy, lives nearby. Patient uses a cane, uncertain if he is still driving. He was discharged with resumption of [facility], Yancy, dental chairside assistant, will follow up with [facility] today to see if he is still on services. He does not yet have any P.T. orders. P: DCP to follow closely. Will see if he is appropriate for P.T, provider indicated today, he is improving. Will also find out if patient is still on [facility] services. Rosa Manuel RN/Financial Reporting Analyst Discharge Planning/Care Management Advanced directive, confirm from FAMILY Start: 03/31/23 16:09 Freq: Q24H Status: Active Protocol: Document 03/31/23 16:09 BUTCH (Rec: 03/31/23 18:29 BUTCH [id number]) Advance Directive, confirm on record Time 16:00 Person contacted Chasidy Powell Copy received No CM Discharge Assessment Start: 04/01/23 08:15 Freq: Status: Active Protocol: Document 04/01/23 08:16 (Rec: 04/01/23 08:18 [id number]) Discharge Planning Assessment Assigned Log Chipper Operator Rosa Manuel RN, Financial Reporting Analyst Advance Directives? Yes Advance Directives on File No History Provided By Patient,Family Member,Medical Record Prior Living Arrangements House Household Members spouse,family Type of transporation used prior to Relies on Others admit Independent with ADL's Yes Is patient alert and oriented? Yes Needs Assistance With Meal Prep,Home Chores / Shopping Caregiver for Another No Comment uses bilateral single point canes. states he was not using them when he twisted his knee this last time. Patient/Family Preference Home with Home Health Comment Patient is currently under home health services. Comment Anticipate home w/supportive family, spouse, resumption of [facility] services, but he currently has no P.T. orders yet, may have to see how he does with therapy once he is more medically stable. Discharge Plan Home with Home Health Transportation Arrangement Family available to provide transport at d/c Referrals Initiated Home Health Additional Comment Will likely need resumption orders for [facility] upon DC If patient plan is home with home health TBD : Has signed face to face form been completed? Whiteboard Updated in Patient Room with Yes name and ext. # of Log Chipper Operator Review Status In Process Next Review Type Continued Stay Review
--- NOTE | 2023-04-01 08:59 | P.TELICUPN_ITS ---
Subjective Subjective IF CAMERA ACTIVATED, patient seen via real-time interactive audiovisual communication: Camera not activated Date Patient Seen: 04/01/23 Consent obtained for tele-group social worker care: Yes Patient Location: ICU Provider location (State): [place] Other participants/roles: bedside RN, hospitalist Dr. Uribe Interval history: junctional rhythm POA resolved. hyperkalemia resolved. Received lasix bolus overnight for SOB. He is net negative 500 ml. ON 2 L NC patient downgraded prior to rounds. Current Medications Current Medications Medications: Home Medications albuterol sulfate 90 mcg/actuation aerosol inhaler (Proventil HFA) 2 puff INH PRN PRN Shortness Of Breath ##0 03/22/17 [History Confirmed 03/31/23] mesalamine 500 mg capsule,extended release (Pentasa) 1,000 mg PO BID ##0 03/24/17 [History Confirmed 03/31/23] calcium carbonate 500 mg-vitamin D3 2.5 mcg (100 unit) chewable tablet 3 tab PO DAILY ##0 03/31/17 [History Confirmed 03/31/23] ferrous sulfate 325 mg (65 mg iron) tablet 325 mg PO BID 05/18/18 [History Confirmed 03/31/23] finasteride 5 mg tablet 5 mg PO DAILY 05/18/18 [History Confirmed 03/31/23] folic acid 1 mg tablet 1 mg PO DAILY 05/18/18 [History Confirmed 03/31/23] loratadine 10 mg tablet 10 mg PO DAILY 05/18/18 [History Confirmed 03/31/23] nitroglycerin 0.4 mg sublingual tablet (Nitrostat) 0.4 mg sublingual Q5-15M PRN Chest Pain 05/18/18 [History Confirmed 03/31/23] simvastatin 40 mg tablet 20 mg PO BEDTIME 12/07/21 [History Confirmed 03/31/23] fluticasone propionate 50 mcg/actuation nasal spray,suspension 1 spray intranasal PRN PRN allergy symptoms 02/07/22 [History Confirmed 03/31/23] acetaminophen 325 mg tablet 650 mg PO Q4H PRN Pain 04/24/22 [History Confirmed 03/31/23] alfuzosin 10 mg tablet,extended release 24 hr 10 mg PO DAILY 04/24/22 [History Confirmed 03/31/23] ascorbic acid (vitamin C) 500 mg tablet 500 mg PO DAILY 10/19/22 [History Confirmed 03/31/23] neomycin-polymyxin I-lmefzoibxv-ecyougfqesresc top ointment 1 ea topical DAILY PRN Skin Irritation 04/24/22 [History Confirmed 03/31/23] omeprazole 20 mg tablet,delayed release 20 mg PO DAILY 04/24/22 [History Confirmed 03/31/23] carvedilol 12.5 mg tablet 12.5 mg PO BID 01/13/23 [History Confirmed 03/31/23] isosorbide mononitrate 60 mg tablet,extended release 24 hr 30 mg PO DAILY 01/13/23 [History Confirmed 03/31/23] potassium chloride 20 mEq tablet,extended release 20 meq PO TID 01/13/23 [History Confirmed 03/31/23] metolazone 2.5 mg tablet 2.5 mg PO DAILY #90 tabs 02/25/23 [Rx Confirmed 03/31/23] eplerenone 50 mg tablet 50 mg PO DAILY #90 tabs 03/04/23 [Rx Confirmed 03/31/23] tamsulosin 0.4 mg capsule 0.4 mg PO DAILY #90 caps 03/04/23 [Rx Confirmed 03/31/23] apixaban 5 mg tablet (Eliquis) 5 mg PO BID #180 tabs 03/20/23 [Rx Confirmed 03/31/23] Visit Medications (administered) Generic Name Dose Route Start Last Admin Trade Name Freq PRN Reason Stop Dose Admin Acetaminophen 650 mg 03/31/23 14:23 03/31/23 16:33 Acetaminophen 325 Mg Tablet PO 650 mg Q6H PRN Administration Fever/Mild Pain (1-3) Objective Labs 04/01/23 04:40 04/01/23 04:40 Labs: Laboratory Results - last 24 hr 03/31/23 03/31/23 03/31/23 09:40 09:40 09:40 WBC 4.3 L RBC 2.93 L Hgb 7.2 L Hct 23.0 L MCV 78.2 L MCH 24.6 L MCHC 31.5 RDW 17.7 H Plt Count 184 Neut % (Auto) 75.0 Lymph % (Auto) 12.0 L [place] % (Auto) 12.2 Eos % (Auto) 0.0 L Baso % (Auto) 0.8 Neut # (Auto) 3200 Lymph # (Auto) 500 L [place] # (Auto) 500 Eos # (Auto) 0 Baso # (Auto) 0 PT 28.7 H INR 2.5 H APTT 34 Sodium 125 L Potassium 6.9 H* D Chloride 98 Carbon Dioxide 19 L BUN 55 H Creatinine 1.11 Estimated GFR > 60 BUN/Creatinine Ratio 49.5 H Glucose 110 Calcium 8.8 Magnesium 2.5 H Total Bilirubin 0.7 AST 39 ALT 29 Alkaline Phosphatase 140 H Total Protein 5.8 L Albumin 3.3 L Globulin 2.5 Albumin/Globulin Ratio 1.3 Lipase 109 Stl C. cayetanensis PCR Stool Rotavirus (PCR) Stool Adenovirus (PCR) Stool Astrovirus (PCR) Stool Cryptosporidium PCR Stl E.coli Shiga Tox PCR St Sh/Enteroin Ecoli PCR Stool E coli O157 PCR Stl Enterotoxigenic E PCR Stool EPEC (PCR) Stl E. histolytica PCR Stool Giardia Lamblia PCR Stool Sapovirus (PCR) Stl P. shigelloides PCR St Y.enterocolitica PCR Stool Vibrio (PCR) Stl Vibrio cholerae PCR Stl Enteroaggr Ecoli PCR Stl Norovirus GI/GII PCR Campylobacter (PCR) C. difficile Tox (PCR) SARS-CoV-2 (PCR) Influenza A (RT-PCR) Influenza B (RT-PCR) RSV (PCR) Salmonella (PCR) Blood Type Antibody Screen 03/31/23 03/31/23 03/31/23 10:15 10:20 12:35 WBC 4.3 L RBC 2.85 L Hgb 7.0 L Hct 22.5 L MCV 78.8 L MCH 24.5 L MCHC 31.2 RDW 17.9 H Plt Count 169 Neut % (Auto) 71.3 Lymph % (Auto) 13.3 L [place] % (Auto) 15.1 H Eos % (Auto) 0.1 L Baso % (Auto) 0.2 Neut # (Auto) 3000 Lymph # (Auto) 600 L [place] # (Auto) 600 Eos # (Auto) 0 Baso # (Auto) 0 PT INR APTT Sodium Potassium Chloride Carbon Dioxide BUN Creatinine Estimated GFR BUN/Creatinine Ratio Glucose Calcium Magnesium Total Bilirubin AST ALT Alkaline Phosphatase Total Protein Albumin Globulin Albumin/Globulin Ratio Lipase Stl C. cayetanensis PCR Stool Rotavirus (PCR) Stool Adenovirus (PCR) Stool Astrovirus (PCR) Stool Cryptosporidium PCR Stl E.coli Shiga Tox PCR St Sh/Enteroin Ecoli PCR Stool E coli O157 PCR Stl Enterotoxigenic E PCR Stool EPEC (PCR) Stl E. histolytica PCR Stool Giardia Lamblia PCR Stool Sapovirus (PCR) Stl P. shigelloides PCR St Y.enterocolitica PCR Stool Vibrio (PCR) Stl Vibrio cholerae PCR Stl Enteroaggr Ecoli PCR Stl Norovirus GI/GII PCR Campylobacter (PCR) C. difficile Tox (PCR) SARS-CoV-2 (PCR) Negative Influenza A (RT-PCR) Flu a negative Influenza B (RT-PCR) Flu b negative RSV (PCR) Negative Salmonella (PCR) Blood Type A Positive Antibody Screen Negative 03/31/23 03/31/23 03/31/23 12:35 14:57 16:00 WBC RBC Hgb Hct MCV MCH MCHC RDW Plt Count Neut % (Auto) Lymph % (Auto) [place] % (Auto) Eos % (Auto) Baso % (Auto) Neut # (Auto) Lymph # (Auto) [place] # (Auto) Eos # (Auto) Baso # (Auto) PT INR APTT Sodium 127 L 128 L 128 L Potassium 6.0 H 6.0 H 5.8 H Chloride 100 100 100 Carbon Dioxide 21 L 22 19 L BUN 53 H 51 H 52 H Creatinine 1.10 1.13 1.09 Estimated GFR > 60 > 60 > 60 BUN/Creatinine Ratio 48.2 H 45.1 H 47.7 H Glucose 72 L 90 89 Calcium 8.5 8.7 8.7 Magnesium Total Bilirubin AST ALT Alkaline Phosphatase Total Protein Albumin Globulin Albumin/Globulin Ratio Lipase Stl C. cayetanensis PCR Stool Rotavirus (PCR) Stool Adenovirus (PCR) Stool Astrovirus (PCR) Stool Cryptosporidium PCR Stl E.coli Shiga Tox PCR St Sh/Enteroin Ecoli PCR Stool E coli O157 PCR Stl Enterotoxigenic E PCR Stool EPEC (PCR) Stl E. histolytica PCR Stool Giardia Lamblia PCR Stool Sapovirus (PCR) Stl P. shigelloides PCR St Y.enterocolitica PCR Stool Vibrio (PCR) Stl Vibrio cholerae PCR Stl Enteroaggr Ecoli PCR Stl Norovirus GI/GII PCR Campylobacter (PCR) C. difficile Tox (PCR) SARS-CoV-2 (PCR) Influenza A (RT-PCR) Influenza B (RT-PCR) RSV (PCR) Salmonella (PCR) Blood Type Antibody Screen 03/31/23 03/31/23 04/01/23 18:00 20:27 00:21 WBC RBC Hgb Hct MCV MCH MCHC RDW Plt Count Neut % (Auto) Lymph % (Auto) [place] % (Auto) Eos % (Auto) Baso % (Auto) Neut # (Auto) Lymph # (Auto) [place] # (Auto) Eos # (Auto) Baso # (Auto) PT INR APTT Sodium 129 L 129 L Potassium 5.1 3.9 D Chloride 100 99 Carbon Dioxide 21 L 24 BUN 50 H 49 H Creatinine 1.07 0.99 Estimated GFR > 60 > 60 BUN/Creatinine Ratio 46.7 H 49.5 H Glucose 107 91 Calcium 8.4 8.3 L Magnesium Total Bilirubin AST ALT Alkaline Phosphatase Total Protein Albumin Globulin Albumin/Globulin Ratio Lipase Stl C. cayetanensis PCR Not detected Stool Rotavirus (PCR) Not detected Stool Adenovirus (PCR) Not detected Stool Astrovirus (PCR) Not detected Stool Cryptosporidium PCR Not detected Stl E.coli Shiga Tox PCR Not detected St Sh/Enteroin Ecoli PCR Not detected Stool E coli O157 PCR Not Reportable Stl Enterotoxigenic E PCR Not detected Stool EPEC (PCR) Not detected Stl E. histolytica PCR Not detected Stool Giardia Lamblia PCR Not detected Stool Sapovirus (PCR) Not detected Stl P. shigelloides PCR Not detected St Y.enterocolitica PCR Not detected Stool Vibrio (PCR) Not detected Stl Vibrio cholerae PCR Not detected Stl Enteroaggr Ecoli PCR Not detected Stl Norovirus GI/GII PCR Not detected Campylobacter (PCR) Not detected C. difficile Tox (PCR) Not detected SARS-CoV-2 (PCR) Influenza A (RT-PCR) Influenza B (RT-PCR) RSV (PCR) Salmonella (PCR) Not detected Blood Type Antibody Screen 04/01/23 04/01/23 04:40 04:40 WBC 4.3 L RBC 2.81 L Hgb 7.0 L Hct 21.6 L MCV 76.9 L MCH 24.8 L MCHC 32.2 RDW 17.4 H Plt Count 189 Neut % (Auto) 66.3 Lymph % (Auto) 14.9 L [place] % (Auto) 15.5 H Eos % (Auto) 2.2 Baso % (Auto) 1.1 Neut # (Auto) 2900 Lymph # (Auto) 600 L [place] # (Auto) 700 Eos # (Auto) 100 Baso # (Auto) 0 PT INR APTT Sodium 130 L Potassium 3.1 L Chloride 97 L Carbon Dioxide 25 BUN 43 H Creatinine 0.92 Estimated GFR > 60 BUN/Creatinine Ratio 46.7 H Glucose 83 Calcium 8.1 L Magnesium Total Bilirubin AST ALT Alkaline Phosphatase Total Protein Albumin Globulin Albumin/Globulin Ratio Lipase Stl C. cayetanensis PCR Stool Rotavirus (PCR) Stool Adenovirus (PCR) Stool Astrovirus (PCR) Stool Cryptosporidium PCR Stl E.coli Shiga Tox PCR St Sh/Enteroin Ecoli PCR Stool E coli O157 PCR Stl Enterotoxigenic E PCR Stool EPEC (PCR) Stl E. histolytica PCR Stool Giardia Lamblia PCR Stool Sapovirus (PCR) Stl P. shigelloides PCR St Y.enterocolitica PCR Stool Vibrio (PCR) Stl Vibrio cholerae PCR Stl Enteroaggr Ecoli PCR Stl Norovirus GI/GII PCR Campylobacter (PCR) C. difficile Tox (PCR) SARS-CoV-2 (PCR) Influenza A (RT-PCR) Influenza B (RT-PCR) RSV (PCR) Salmonella (PCR) Blood Type Antibody Screen Exam Vital Signs (past 8 hours): - 04/01/23 01:00 04/01/23 01:00 04/01/23 01:15 Temperature Pulse Rate 74 74 Respiratory Rate 21 25 H Blood Pressure 96/52 L Pulse Oximetry 94 92 Oxygen Flow Rate 2 2 2 04/01/23 02:00 04/01/23 02:00 04/01/23 02:22 Temperature Pulse Rate 65 65 Respiratory Rate 25 H 18 Blood Pressure 95/52 L Pulse Oximetry 95 96 Oxygen Flow Rate 04/01/23 03:00 04/01/23 03:00 04/01/23 03:03 Temperature Pulse Rate 63 63 Respiratory Rate 18 20 Blood Pressure 87/51 L Pulse Oximetry 99 97 Oxygen Flow Rate 2 2 2 04/01/23 03:03 04/01/23 03:04 04/01/23 03:04 Temperature Pulse Rate 66 Respiratory Rate 19 Blood Pressure 81/44 L 81/44 L Pulse Oximetry 97 Oxygen Flow Rate 2 2 2 04/01/23 03:06 04/01/23 03:06 04/01/23 04:00 Temperature Pulse Rate 72 63 Respiratory Rate 18 17 Blood Pressure 98/52 L Pulse Oximetry 96 89 L Oxygen Flow Rate 2 2 2 04/01/23 04:00 04/01/23 04:27 04/01/23 05:00 Temperature 97.8 F Pulse Rate 74 Respiratory Rate 27 H Blood Pressure 99/56 L 97/55 L Pulse Oximetry 91 Oxygen Flow Rate 2 2 2 04/01/23 05:00 04/01/23 05:16 04/01/23 06:00 Temperature Pulse Rate 67 60 66 Respiratory Rate 23 14 22 Blood Pressure Pulse Oximetry 93 90 L Oxygen Flow Rate 2 2 2 04/01/23 06:00 04/01/23 06:46 04/01/23 07:00 Temperature Pulse Rate 71 Respiratory Rate 24 Blood Pressure 85/60 L 87/53 L Pulse Oximetry 92 Oxygen Flow Rate 2 2 04/01/23 07:00 04/01/23 07:02 04/01/23 07:02 Temperature Pulse Rate 64 63 Respiratory Rate 26 H 22 Blood Pressure 87/48 L Pulse Oximetry 90 L 89 L Oxygen Flow Rate 04/01/23 07:25 04/01/23 07:25 04/01/23 07:30 Temperature Pulse Rate 64 58 L Respiratory Rate 22 22 Blood Pressure 94/55 L Pulse Oximetry 89 L 87 L Oxygen Flow Rate Oxygen Flow Rate 2 Quality TeleICU VTE Deep Vein Thrombosis/Pulmonary Embolism Present on Admission: No Stress Ulcer Stress ulcer prophylaxis: yes Assessment & Plan Assessment and plan (1) Bradycardia: Status: Acute (2) Anemia: Status: Acute (3) Dehydration: Status: Acute (4) Hyperkalemia: Status: Acute Plan: RESOLVED (5) Diarrhea: Status: Acute (6) Hypokalemia: Status: Acute (7) Anticoagulation monitoring, INR range 2-3: Status: Acute Plan Patient downgraded from ICU prior to rounds this am Chart reviewed and d/w Bedside RN and hospitalist Dr. Uribe Assessment & Plan narrative: NEURO: -- Seek early mobility -- PT/OT consultation RESP: -- On 2 L NC -- received lasix bolus last pm, IV fluids held -- Encourage IS CVS: # Hypotension resolving -- junctional rhythm resolved. -- Holding BP meds -- MAP goal > 65 -- can restart home statin : #MIKAYLA, volume depletion on admission # Hyperkalemia- resolved and patient is now on hypokalemic 3.1 this am -- hyper K Secondary to eplerenone therapy -- Hold eplerenone -- send urine cx procalcitonin given h/o of UTI's and continued mild hypotension. 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 INR 2.5 D/w bedside RN Time Spent With Patient Time with patient: less than 30 minutes (no critical care billing)
[2023-04-01] MEDS: POTASSIUM CHLORIDE 20 MEQ TAB 40 MEQ PO ×2 (09:00→15:47)
[2023-04-01] MEDS: PANTOPRAZOLE 40 MG VIAL IV (09:59)
[2023-04-01 10:40] LABS: Appearance Urine UA CLEAR; Bilirubin Urine UA NEGATIVE (NEGATIVE); Color Urine UA YELLOW; Glucose Urine UA NEGATIVE (Negative); Ketones Urine UA NEGATIVE (NEGATIVE); Leukocyte Esterase Urine UA 1+ (NEGATIVE); Nitrite Urine UA NEGATIVE (Negative); Occult Blood Urine UA NEGATIVE (Negative); Protein Urine UA NEGATIVE (Negative); Urobilinogen Urine UA 0.2 E.U./dL (0.2); pH Urine UA 5.5 (4.5-8.0)
[2023-04-01 10:54] LABS: Bacteria Urine None Seen; Culture Indicated Urine Specimen Cultured; RBC Urine None Seen (0-5/HPF); Squamous Epithelial Cell Urine None Seen (0-5/HPF); WBC Urine 1-5/HPF (0-5/HPF)
[2023-04-01 14:39] LABS: BUN Creatinine Ratio 38.8 (6-22); Blood Urea Nitrogen 33 mg/dL (9-20); Calcium 8.1 mg/dL (8.4-10.2); Carbon Dioxide 23 mmol/L (22-32); Chloride 99 mmol/L (98-107); Estimated Glomerular Filt Rate > 60 mL/min (>60); Glucose 118 mg/dL (80-110); HEMOLYSIS < 15 (0-50); Potassium 3.4 mmol/L (3.4-5.1); Sodium 130 mmol/L (137-145)
[2023-04-01 14:54] LABS: Procalcitonin 0.09 ng/mL (<0.5)
--- NOTE | 2023-04-01 19:12 | PC.NURSE ---
pt has improved neurologically during this shift; he has been out of bed twice and amb w/ standby asst w/ fww; he has 2 doses of po potassium and his last level was 3.4; his and granddaughter were here this afternoon; continues to have isaac
[2023-04-01] MEDS: ALBUTEROL 2.5 MG/3 ML NEB (ADULT) INH (20:24)
[2023-04-02] VITALS (42 sets, daily range): BP systolic 95–118; BP diastolic 54–65; PULSE 70–98; RESP 6–86; TEMP 36.7–37.2; O2SAT 75–96
[2023-04-02 05:30] LABS: BUN Creatinine Ratio 31.8 (6-22); Blood Urea Nitrogen 21 mg/dL (9-20); Calcium 8.2 mg/dL (8.4-10.2); Carbon Dioxide 25 mmol/L (22-32); Chloride 102 mmol/L (98-107); Estimated Glomerular Filt Rate > 60 mL/min (>60); Glucose 84 mg/dL (80-110); HEMOLYSIS < 15 (0-50); Potassium 3.9 mmol/L (3.4-5.1); Sodium 133 mmol/L (137-145)
--- NOTE | 2023-04-02 08:13 | P.PN_ITS ---
Subjective Subjective Interval history: Feeling 70% better, still weak. No diarrhea or BM yesterday. No dyspnea or abdomen pain. Off O2. Exam Vital Signs (past 8 hours): - 04/02/23 00:20 04/02/23 04:00 Temperature 98.7 F 98.0 F Pulse Rate 73 Respiratory Rate 14 Blood Pressure 95/59 L Pulse Oximetry 95 Oxygen Delivery Method Simple Mask Oxygen Flow Rate 2 Narrative Exam Narrative: NAD, normal speech and calm. Atraumatic head, EOMI. Neck supple and midline trachea. Lungs CTA, normal rate and effort. Heart RRR, without murmur, gallop, or rub. Abdomen Soft, NT, ND No leg edema. No skin rash. Objective Labs 04/01/23 04:40 04/02/23 05:04 Labs: Laboratory Results - last 24 hr 04/01/23 04/01/23 04/01/23 10:25 13:55 13:55 Sodium 130 L Potassium 3.4 Chloride 99 Carbon Dioxide 23 BUN 33 H Creatinine 0.85 Estimated GFR > 60 BUN/Creatinine Ratio 38.8 H Glucose 118 H Calcium 8.1 L Procalcitonin 0.09 Urine Color Yellow Urine Appearance Clear Urine pH 5.5 Ur Specific [place] 1.020 Urine Protein Negative Urine Glucose (UA) Negative Urine Ketones Negative Urine Occult Blood Negative Urine Nitrate Negative Urine Bilirubin Negative Urine Urobilinogen 0.2 Ur Leukocyte Esterase 1+ H Urine RBC None seen Urine WBC 1-5/hpf Ur Squamous Epith Cells None seen Urine Bacteria None seen Ur Culture Indicated? Specimen cultured 04/02/23 05:04 Sodium 133 L Potassium 3.9 Chloride 102 Carbon Dioxide 25 BUN 21 H Creatinine 0.66 Estimated GFR > 60 BUN/Creatinine Ratio 31.8 H Glucose 84 Calcium 8.2 L Procalcitonin Urine Color Urine Appearance Urine pH Ur Specific [place] Urine Protein Urine Glucose (UA) Urine Ketones Urine Occult Blood Urine Nitrate Urine Bilirubin Urine Urobilinogen Ur Leukocyte Esterase Urine RBC Urine WBC Ur Squamous Epith Cells Urine Bacteria Ur Culture Indicated? [facility], [facility] Medical History Anemia Asthma BPH w urinary obs/LUTS Chicken pox Chronic anticoagulation Chronic atrial fibrillation Chronic diastolic CHF (congestive heart failure), NYHA class 1 Coronary artery disease Crohn's disease Diverticular disease Easy bruisability Essential hypertension Fractures Hearing loss Hemorrhoid History of colonic polyps History of urinary incontinence (~2018) Measles Mixed hyperlipidemia Mumps Myocardial infarction Obesity Osteoarthritis Positive PPD Primary osteoarthritis involving multiple joints Pulmonary hypertension Right inguinal hernia Tinnitus Vision disorder Surgical History Anesthesia H/O mitral valve replacement (~03/2017) Hx of heart artery stent (~1994) Family History Mother Congestive heart failure Father Coronary artery disease Social History household members: spouse and family Smoking Status: Never smoker alcohol intake: current substance use type: does not use Type(s) of exercise: walking frequency: daily Assessment & Plan Assessment & Plan narrative: 1. Junctional bradycardia, POA and resolved. -check ECG to document , hold home meds. 2. Hyperkalemia, POA and resolved. -monitor. 3. Hypokalemia, new and improved. -replete. 4. Diarrhea (Crohns)? with volume depletion, POA and resolved. -IVF and follow. Neg CDT and Campylobacter neg. 5. Hypovolemic hyponatremia, POA and improved. -IVF (NS) and monitor 6. Anemia, POA and active. -follow . Iron studies, B12 and Folate, pending. -Monitor. 7. Pulmonary hypertension, POA and stable. 8. HTN, POA and stable. -hold usual medications while volume depleted. Monitor. 9. Chronic atrial fibrillation on anticoagulation, POA and stable. 10. CAD, POA and stable. 11. Asthma, POA and stable. 12. Crohns disease, POA. -will add CRP to assess for possible disease activity (pending). Ira is PCP plan is PT eval and IVF today, dc [place]. Possible home 1-2 days. Full Code is proxy decision maker. Time Spent With Patient Time with patient: 30 to 49 minutes with 50% spent counseling/coordinating care Quality VTE Deep Vein Thrombosis/Pulmonary Embolism Present on Admission: No
[2023-04-02] MEDS: SODIUM CHLORIDE 0.9% 1,000 ML 100 ML IV (08:55)
[2023-04-02] MEDS: PANTOPRAZOLE 40 MG VIAL IV (09:21)
[2023-04-02 10:40] LABS: INR 1.4 (0.9-1.3); Prothrombin Time 15.6 SECONDS (10.1-12.7)
[2023-04-02 10:45] LABS: HEMOLYSIS < 15 (0-50); Iron 20 ug/dL (49-181)
[2023-04-02 10:55] LABS: Percent Iron Saturation 6 % (20-50); Total Iron Binding Capacity 343 ug/dL (261-462)
[2023-04-02 10:59] LABS: Transferrin 226 mg/dL (206-381)
[2023-04-02] MEDS: FINASTERIDE 5 MG TABLET PO (11:06)
[2023-04-02] MEDS: TAMSULOSIN 0.4 MG CAPSULE PO (11:06)
[2023-04-02] MEDS: FOLIC ACID 1 MG TABLET PO (11:06)
[2023-04-02 11:52] LABS: Folate > 20.0 ng/mL (2.76-20.0); Vitamin B12 > 1000 pg/mL (239-931)
--- NOTE | 2023-04-02 14:50 | PC.NURSE ---
1400--family at bedside; brought home med per pharmacy request; sent to pharmacy; pt up in chair
--- NOTE | 2023-04-02 15:15 | PT.IIE ---
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 (03/31/23) Surgical History (Last Reviewed 03/31/23 @ 16:41 by Andrzej Uribe MD) Anesthesia H/O mitral valve replacement (~03/2017) Hx of heart artery stent (~1994) Medical History (Last Reviewed 03/31/23 @ 16:41 by Andrzej Uribe MD) Anemia Asthma BPH w urinary obs/LUTS Chicken pox Chronic anticoagulation Chronic atrial fibrillation Chronic diastolic CHF (congestive heart failure), NYHA class 1 Coronary artery disease Crohn's disease Diverticular disease Easy bruisability Essential hypertension Fractures Hearing loss Hemorrhoid History of colonic polyps History of urinary incontinence (~2018) Measles Mixed hyperlipidemia Mumps Myocardial infarction Obesity Osteoarthritis Positive PPD Primary osteoarthritis involving multiple joints Pulmonary hypertension Right inguinal hernia Tinnitus Vision disorder Physical Therapy Inpatient Evaluation/Re-Eval M1 PT/OT-IP Prior Functional Status Start: 04/02/23 17:58 Freq: NEEDED Status: Active Protocol: Document 04/02/23 15:15 AB (Rec: 04/02/23 18:11 AB [email or web address]) Medical Review Prior Functional Status Medical History Reviewed Yes Communication able to make needs known Mobility and Gait pt stated that he is modified independent with all mobilities and ambulation using a 4WW. stated that he is the one helping his spouse Social History Household Members spouse Living Arrangements House Number of Floors (Floors) One Floor Number of Stairs To Enter/Railing? ramp to enter with B rails Home Environment High Toilet,Walk in Shower Home Equipment Four Wheel Walker,Shower Seat with Backrest,Hand Held Shower ,Grab Bars Near Toilet Additional Social History Comment pt stated that he has his daughter/son that lives next door that can assist them M2 PT-IP Current Condition Start: 04/02/23 17:58 Freq: NEEDED Status: Active Protocol: Document 04/02/23 15:15 AB (Rec: 04/02/23 18:11 AB [email or web address]) Physical Therapy Current Condition Current Condition Evaluation Date 04/02/23 Treatment Diagnosis anemia; bradycardia; dehydration; difficulty in walking Onset Date 03/31/23 M3 PT-IP Subjective Start: 04/02/23 17:58 Freq: NEEDED Status: Active Protocol: Document 04/02/23 15:15 AB (Rec: 04/02/23 18:11 AB [email or web address]) Subjective Physical Therapy Visit Type Type Initial Evaluation Visit Start Time 15:15 Visit Stop Time 16:20 Total Visit Minutes 26 Notes pt seen for split visits: 1515 to 1521 and 1600 to 1620 Number of DIRECTOR MEETINGS Visits 0 Physical Therapy Visit Comments Patient Comments requesting to use the toilet M4 PT-IP Mobility and Gait Start: 04/02/23 17:58 Freq: NEEDED Status: Active Protocol: Document 04/02/23 15:15 AB (Rec: 04/02/23 18:11 AB [email or web address]) PT-Bed Mobility Assessment Supine to Sit Supine to Sit Standby Assistance PT-Transfer Assessment Sit to and From Stand Sit to and from Stand Standby Assistance Equipment Transfer Assistive Device Gait Belt,Front Wheeled Walker ,4 Wheeled Walker Orthotic/Prosthetic Devices or Brace: No Transfers Transfer Destination Bed,Toilet Transfer Technique ambulated Transfer Ability Level of Assist Standby Assistance Comments Mobility Comments pt sitting on his chair and requesting to use the toilet. completed sit to stand SBA and ambulated to the toilet using FWW SBA. Left pt with nurse to assist. checked back on pt afterwards. pt sitting on chair. and agreed to mobilize with PT. assessed ambulation using 4WW. pt ambulated in room using 4WW SBA ~ 40 ft. pt with steady gait and without LOB. sat on EOB and completed sit to supine SBA. pt wanting to stay in bed. call light and table placed within reach. informed pt that no further PT needs indicated and agreed. informed nurse. Gait Assessment Gait Gait Assistance Required: Standby Assistance Distance (Feet) 40 Able to Maintain Weight Bearing Status Yes During Gait Assistive Devices Assistive Device Gait Belt,Front Wheeled Walker ,4 Wheeled Walker Orthotic/Prosthetic Devices or Brace: No Gait Deviations General Gait Pattern Decreased Stride Length, Decreased Feet Clearance, Flexed Trunk Factors Limiting Gait Function Factors Limiting Gait Function Decreased Activity Tolerance, Decreased Strength,Poor Balance PT-Balance Assessment Sitting Balance and Reactions Static Sitting Balance Ability Normal Dynamic Sitting Balance Ability Normal Standing Balance and Reactions Static Standing Balance Ability Good Dynamic Standing Balance Ability Fair Device Used 4WW M5 PT-IP Objective Assessments Start: 04/02/23 17:58 Freq: NEEDED Status: Active Protocol: Document 04/02/23 15:15 AB (Rec: 04/02/23 18:11 AB [email or web address]) Orientation Orientation/Cognition Level of Alertness Alert Orientation Name,Place,Situation Language Function Ability No Deficits Noted Safety Awareness Decreased Safety Awareness Memory Description No Deficits Noted Gross Range of Motion Lower Extremity ROM Assessment Within Functional Limits Strength Lower Extremity Strength Assessment Within Functional Limits Muscle Tone Muscle Tone WNL Yes M6 PT-IP Treatment Start: 04/02/23 17:58 Freq: NEEDED Status: Active Protocol: Document 04/02/23 15:15 AB (Rec: 04/02/23 18:11 AB [email or web address]) Physical Therapy Treatment Education Education Provided Safety M7 PT-IP Assessment and Plan Start: 04/02/23 17:58 Freq: NEEDED Status: Active Protocol: Document 04/02/23 15:15 AB (Rec: 04/02/23 18:11 AB [email or web address]) PT Summary Assessment and Plan Potential Status of Condition at Evaluation Stable Summary Impairments Strength,Balance,Bed Mobility, Transfers,Gait,Activity Tolerance Assessment Summary Pt is an 82 y/o male who presented to the ED due to c/o diarrhea and weakness. pt admitted for bradycardia, anemia and dehydration. pt continue to have love H&H. pt able to mobilize in room using 4WW/FWW SBA for safety. pt is steady and without LOB. No further PT needs at this time. will d/c PT. pt and nurse informed. Frequency of Treatment Frequency Of Treatment Discharge Discharge Recommendations Transportation Needs at Discharge Private Vehicle
[2023-04-02] MEDS: APIXABAN 5 MG TABLET PO (20:51)
[2023-04-02] MEDS: ATORVASTATIN 20 MG TABLET 10 MG PO (20:52)
[2023-04-03] VITALS (14 sets, daily range): BP systolic 102–118; BP diastolic 55–74; PULSE 73–96; RESP 16–24; TEMP 36.4–37.2; O2SAT 95–98
[2023-04-03] MEDS: PANTOPRAZOLE DR 20 MG TABLET PO (07:16)
[2023-04-03] MEDS: FOLIC ACID 1 MG TABLET PO (09:15)
[2023-04-03] MEDS: ASCORBIC ACID 500 MG TABLET PO (09:15)
[2023-04-03] MEDS: APIXABAN 5 MG TABLET PO ×2 (09:15→20:40)
[2023-04-03] MEDS: TAMSULOSIN 0.4 MG CAPSULE PO (09:16)
[2023-04-03] MEDS: FINASTERIDE 5 MG TABLET PO (09:16)
[2023-04-03 10:17] LABS: Add Manual Diff / Slide Review NO; Basophils Absolute Auto 0 /uL (0-100); Basophils Percent Auto 0.5 % (0-2); Eosinophils Absolute Auto 100 /uL (0-450); Eosinophils Percent Auto 3.3 % (2-4); Hematocrit 24.7 % (41-53); Hemoglobin 7.6 g/dL (13.5-17.5); Lymphocytes Absolute Auto 500 /uL (1100-4500); Lymphocytes Percent Auto 11.3 % (25-40); Mean Corpuscular HGB Conc 30.8 % (30-36); Mean Corpuscular Hemoglobin 24.1 PG (26-34); Mean Corpuscular Volume 78.5 fL (80-100); Monocytes Absolute Auto 600 /uL (0-900); Monocytes Percent Auto 14.5 % (3-14); Neutrophils Absolute Auto 3100 /uL (1500-7000); Neutrophils Percent Auto 70.4 % (50-75); Platelet Count 195 X10^3/uL (150-400); Red Blood Cell Count 3.15 X10^6/uL (4.5-5.9); Red Cell Distribution Width 17.7 % (11.6-14.8); White Blood Cell Count 4.4 X10^3/uL (4.5-11.0)
[2023-04-03 10:31] LABS: Blood Urea Nitrogen 9 mg/dL (9-20); Calcium 8.4 mg/dL (8.4-10.2); Carbon Dioxide 26 mmol/L (22-32); Chloride 102 mmol/L (98-107); Estimated Glomerular Filt Rate > 60 mL/min (>60); Glucose 132 mg/dL (80-110); HEMOLYSIS < 15 (0-50); Potassium 3.7 mmol/L (3.4-5.1); Sodium 134 mmol/L (137-145)
--- NOTE | 2023-04-03 10:48 | PM.PN.1 ---
Subjective Subjective Interval history: Hgb 7.6 today. PRBC ordered. Patient feeling better but is a bit anxious. Exam Vital Signs (past 8 hours): - 04/03/23 04:00 04/03/23 07:47 04/03/23 07:00 Temperature 98.9 F Pulse Rate 79 76 Respiratory Rate 22 Blood Pressure 112/68 102/62 Pulse Oximetry 95 Oxygen Delivery Method Room Air Oxygen Flow Rate 0 Oxygen Delivery Method Room Air Oxygen Flow Rate 0 Narrative Exam Narrative: NAD, normal speech and calm. Atraumatic head, EOMI. Neck supple and midline trachea. Lungs with mild rales, normal rate and effort. Heart RRR, without murmur, gallop, or rub. Abdomen Soft, NT, ND No leg edema. No skin rash. Objective Labs 04/03/23 10:10 04/03/23 10:10 Labs: Laboratory Results - last 24 hr 04/02/23 04/02/23 04/03/23 10:20 10:20 10:10 WBC 4.4 L RBC 3.15 L Hgb 7.6 L Hct 24.7 L MCV 78.5 L MCH 24.1 L MCHC 30.8 RDW 17.7 H Plt Count 195 Neut % (Auto) 70.4 Lymph % (Auto) 11.3 L [place] % (Auto) 14.5 H Eos % (Auto) 3.3 Baso % (Auto) 0.5 Neut # (Auto) 3100 Lymph # (Auto) 500 L [place] # (Auto) 600 Eos # (Auto) 100 Baso # (Auto) 0 Sodium Potassium Chloride Carbon Dioxide BUN Creatinine Estimated GFR BUN/Creatinine Ratio Glucose Calcium TIBC 343 % Saturation 6 L Transferrin 226 Vitamin B12 > 1000 H Folate > 20.0 H 04/03/23 10:10 WBC RBC Hgb Hct MCV MCH MCHC RDW Plt Count Neut % (Auto) Lymph % (Auto) Teller % (Auto) Eos % (Auto) Baso % (Auto) Neut # (Auto) Lymph # (Auto) Teller # (Auto) Eos # (Auto) Baso # (Auto) Sodium 134 L Potassium 3.7 Chloride 102 Carbon Dioxide 26 BUN 9 Creatinine 0.50 L Estimated GFR > 60 BUN/Creatinine Ratio 18.0 Glucose 132 H Calcium 8.4 TIBC % Saturation Transferrin Vitamin B12 Folate [facility] Medical History Anemia Asthma BPH w urinary obs/LUTS Chicken pox Chronic anticoagulation Chronic atrial fibrillation Chronic diastolic CHF (congestive heart failure), NYHA class 1 Coronary artery disease Crohn's disease Diverticular disease Easy bruisability Essential hypertension Fractures Hearing loss Hemorrhoid History of colonic polyps History of urinary incontinence (~2018) Measles Mixed hyperlipidemia Mumps Myocardial infarction Obesity Osteoarthritis Positive PPD Primary osteoarthritis involving multiple joints Pulmonary hypertension Right inguinal hernia Tinnitus Vision disorder Surgical History Anesthesia H/O mitral valve replacement (~03/2017) Hx of heart artery stent (~1994) Family History Mother Congestive heart failure Father Coronary artery disease Social History household members: spouse Smoking Status: Never smoker alcohol intake: current substance use type: does not use Type(s) of exercise: walking frequency: daily Assessment & Plan Assessment & Plan narrative: 1. Junctional bradycardia, POA and resolved. -check ECG to document , hold home meds. 2. Hyperkalemia, POA and resolved. -monitor. 3. Hypokalemia, new and improved. -replete. 4. Diarrhea with volume depletion, POA and resolved. -IVF and follow. Neg CDT and Campylobacter neg. 5. Hypovolemic hyponatremia, POA and improved. -Now off fluids -giving lasix due to crackles on exam 6. Anemia, POA and active. -follow . Iron studies, B12 and Folate, pending. -Monitor. 7. Pulmonary hypertension, POA and stable. 8. HTN, POA and stable. -hold usual medications while volume depleted. Monitor. 9. Chronic atrial fibrillation on anticoagulation, POA and stable. 10. CAD, POA and stable. 11. Asthma, POA and stable. 12. Crohns disease, POA. -CRP negative 13. Anxiety -valium 2mg PRN Kotal is PCP Full Code is proxy decision maker. Dispo: Home on 04/04. Time Spent With Patient Time with patient: 30 to 49 minutes with 50% spent counseling/coordinating care Quality VTE Deep Vein Thrombosis/Pulmonary Embolism Present on Admission: No
[2023-04-03 11:21] LABS: C-Reactive Protein Quant 0.9 mg/dL (<1.0)
[2023-04-03] MEDS: diazePAM 2 MG TABLET PO (14:06)
[2023-04-03] MEDS: POTASSIUM CHLORIDE 20 MEQ TAB 40 MEQ PO (16:01)
[2023-04-03] MEDS: ATORVASTATIN 20 MG TABLET 10 MG PO (20:41)
[2023-04-04] VITALS: BP 129/60; PULSE 81; RESP 18; TEMP 36.6; O2SAT 95
[2023-04-04 03:20] VITALS: BP 115/66; PULSE 82; RESP 18; TEMP 36.7; O2SAT 94
[2023-04-04 05:01] LABS: Add Manual Diff / Slide Review NO; Basophils Absolute Auto 0 /uL (0-100); Basophils Percent Auto 1.1 % (0-2); Eosinophils Absolute Auto 200 /uL (0-450); Eosinophils Percent Auto 5.1 % (2-4); Hematocrit 28.2 % (41-53); Hemoglobin 8.8 g/dL (13.5-17.5); Lymphocytes Absolute Auto 500 /uL (1100-4500); Lymphocytes Percent Auto 11.6 % (25-40); Mean Corpuscular HGB Conc 31.1 % (30-36); Mean Corpuscular Hemoglobin 24.6 PG (26-34); Mean Corpuscular Volume 79.1 fL (80-100); Monocytes Absolute Auto 700 /uL (0-900); Monocytes Percent Auto 14.3 % (3-14); Neutrophils Absolute Auto 3100 /uL (1500-7000); Neutrophils Percent Auto 67.9 % (50-75); Platelet Count 165 X10^3/uL (150-400); Red Blood Cell Count 3.57 X10^6/uL (4.5-5.9); Red Cell Distribution Width 17.5 % (11.6-14.8); White Blood Cell Count 4.6 X10^3/uL (4.5-11.0)
[2023-04-04 05:08] LABS: Magnesium 2.1 mg/dL (1.6-2.3)
[2023-04-04 05:10] LABS: BUN Creatinine Ratio 17.4 (6-22); Blood Urea Nitrogen 8 mg/dL (9-20); Calcium 8.6 mg/dL (8.4-10.2); Carbon Dioxide 33 mmol/L (22-32); Chloride 103 mmol/L (98-107); Estimated Glomerular Filt Rate > 60 mL/min (>60); Glucose 87 mg/dL (80-110); HEMOLYSIS < 15 (0-50); Potassium 4.2 mmol/L (3.4-5.1); Sodium 135 mmol/L (137-145)
[2023-04-04] MEDS: PANTOPRAZOLE DR 20 MG TABLET PO (06:07)
[2023-04-04] MEDS: FOLIC ACID 1 MG TABLET PO (08:10)
[2023-04-04] MEDS: ASCORBIC ACID 500 MG TABLET PO (08:10)
[2023-04-04] MEDS: APIXABAN 5 MG TABLET PO (08:10)
[2023-04-04] MEDS: TAMSULOSIN 0.4 MG CAPSULE PO (08:10)
[2023-04-04] MEDS: FINASTERIDE 5 MG TABLET PO (08:10)
[2023-04-04] MEDS: FUROSEMIDE 20 MG/2 ML VIAL IV (08:11)
[2023-04-04 08:51] VITALS: BP 118/60; PULSE 80; RESP 17; TEMP 36.6; O2SAT 95
--- NOTE | 2023-04-04 11:22 | CM.DPC ---
DCP Cont. Met with pt at bedside to discuss his d/c home today. He presents as alert, oriented, expressing feeling much better today. Met with RN, she will call his to provide an ETA for picking him up. Will call [facility] re: d/c and resuming services.
--- NOTE | 2023-04-04 18:07 | P.DS_ITS ---
History of Present Illness History of Present Illness Date Patient Seen: 03/31/23 Date of Onset of Symptoms: 03/26/23 Chief complaint: Weakness/diarrhea Narrative: The patient presents to ED for 5 days of watery diarrhea and weakness. He denies vomiting. He called EMS today and was given IVF en route. Here, he was found to have severe hypokalemia as well as hyponatremia and a junctional bradycardia (rate 30's). 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 He was given insulin and dextrose in ED. He improved to 6.0 with a Creatinine of 1.11. He will get kayexalate next. He has also been getting IV fluid resucitation in the ED. His repeat K was 6.0. Heart rate has increased to 40's. He is listless and notes some abdomen pain and poor appetite. He has been ill for 5 days. No rectal bleeding. He states that it feels a bit like hos Crohn's. He denies fevers or URI symptoms such as cough. He is Full Code and is proxy. Discharge Providers Provider Date of admission: 03/31/23 13:28 Discharge Date: 04/04/23 Primary care physician: Barrera Roth MD Consults: 03/31/23 14:23 Consult to Tele-supervisor finishing department Routine Comment: Consulting Provider: Kimani [employer] Reason for consultation: [facility] [employer] services Has provider been notified: Yes 04/02/23 10:14 Consult to Physical Therapy Evaluate & Treat Comment: Physician Instructions: Evaluate and Treat 04/03/23 10:29 Consult to Home Health Routine Comment: Reason For Exam: Resume Home Health 04/04/23 11:25 Consult to Home Health Routine Comment: [facility] Reason For Exam: Resume Home Health Services Discharge provider: Luis Manuel Adam DO Summary Hospital Course Discharge Diagnosis: 1. Junctional bradycardia, POA and resolved. -HR in 30's in ED, potentially due to hyperkalemia -stopped coreg and epleronone and HR improved to 70-80's 2. Hyperkalemia, POA and resolved. -6.9 in ED, likely due to dehydration and cardiac meds -improved to 4.2 -held coreg and epleronone due to hyperK -will f/up with cardiology to decide on these meds going forward 3. Hypokalemia, new and improved. -replete. 4. Diarrhea with volume depletion, POA and resolved. -IVF and follow. Neg CDT and Campylobacter neg. 5. Hypovolemic hyponatremia, POA and improved. -Now off fluids -giving lasix due to crackles on exam -Na improved to 135 6. Anemia, POA and active. -follow . Iron studies suggest anemia of chronic disease, B12 and Folate normal. -s/p 2 units of PRBCs due to Hgb 7.6 -Hgb improved to 8.8 7. Pulmonary hypertension, POA and stable. 8. HTN, POA and stable. -hold usual medications while volume depleted. Monitor. 9. Chronic atrial fibrillation on anticoagulation, POA and stable. 10. CAD, POA and stable. 11. Asthma, POA and stable. 12. Crohns disease, POA. -CRP negative 13. Anxiety -valium 2mg PRN Hospital Course: Admitted for diarrhea and found to be bradycardic with hyperkalemia. Given IVF and atropine and coreg/epleronone and bradycardia and potassium improved. Gave 2 units of PRBC due to anemia. 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 Exam Vital Signs (past 8 hours): Oxygen Delivery Method Room Air Oxygen Flow Rate 0 Narrative Exam Narrative: NAD, normal speech and calm. Atraumatic head, EOMI. Neck supple and midline trachea. Lungs with mild rales, normal rate and effort. Heart RRR, without murmur, gallop, or rub. Abdomen Soft, NT, ND No leg edema. No skin rash. Objective Labs 04/04/23 04:19 04/04/23 04:19 Labs: Laboratory Results - last 24 hr 04/04/23 04/04/23 04/04/23 04:19 04:19 04:19 WBC 4.6 RBC 3.57 L Hgb 8.8 L Hct 28.2 L MCV 79.1 L MCH 24.6 L MCHC 31.1 RDW 17.5 H Plt Count 165 Neut % (Auto) 67.9 Lymph % (Auto) 11.6 L [place] % (Auto) 14.3 H Eos % (Auto) 5.1 H Baso % (Auto) 1.1 Neut # (Auto) 3100 Lymph # (Auto) 500 L [place] # (Auto) 700 Eos # (Auto) 200 Baso # (Auto) 0 Sodium 135 L Potassium 4.2 Chloride 103 Carbon Dioxide 33 H BUN 8 L Creatinine 0.46 L Estimated GFR > 60 BUN/Creatinine Ratio 17.4 Glucose 87 Calcium 8.6 Magnesium 2.1 PFSH Medical History Anemia Asthma BPH w urinary obs/LUTS Chicken pox Chronic anticoagulation Chronic atrial fibrillation Chronic diastolic CHF (congestive heart failure), NYHA class 1 Coronary artery disease Crohn's disease Diverticular disease Easy bruisability Essential hypertension Fractures Hearing loss Hemorrhoid History of colonic polyps History of urinary incontinence (~2018) Measles Mixed hyperlipidemia Mumps Myocardial infarction Obesity Osteoarthritis Positive PPD Primary osteoarthritis involving multiple joints Pulmonary hypertension Right inguinal hernia Tinnitus Vision disorder Surgical History Anesthesia H/O mitral valve replacement (~03/2017) Hx of heart artery stent (~1994) Family History Mother Congestive heart failure Father Coronary artery disease Social History household members: spouse Smoking Status: Never smoker alcohol intake: current substance use type: does not use Type(s) of exercise: walking frequency: daily Discharge Plan Discharge Plan Patient Disposition: Home Provider Discharge Comment: You had very high potassium which caused your heart rate to slow. I've stopped your coreg and epleronone until you can f/up with your sergeant of officers to discuss restarting them. Discharge orders & Medications Prescriptions: Continued albuterol sulfate [Proventil HFA] 90 MCG/PUFF HFA aerosol inhaler 2 puff INH PRN PRN (Reason: Shortness Of Breath) Qty: 0 mesalamine [Pentasa] 500 MG capsule, extended release 1,000 mg PO BID Qty: 0 calcium carbonate-vitamin D3 500 mg-2.5 mcg (100 unit) Tablet,Chewable 3 tab PO DAILY Qty: 0 tamsulosin 0.4 mg capsule 0.4 mg PO DAILY Qty: 90 3RF simvastatin 40 mg tablet 20 mg PO BEDTIME fluticasone propionate 50 mcg/actuation spray,suspension 1 spray intranasal PRN PRN (Reason: allergy symptoms) acetaminophen 325 mg tablet 650 mg PO Q4H PRN (Reason: Pain) alfuzosin 10 mg tablet extended release 24 hr 10 mg PO DAILY Rx Instructions: administer after the same meal each day ascorbic acid (vitamin C) 500 mg tablet 500 mg PO DAILY omeprazole 20 mg tablet,delayed release (DR/EC) 20 mg PO DAILY [id number] Ointment 1 ea topical DAILY PRN (Reason: Skin Irritation) Eliquis 5 mg tablet 5 mg PO BID Qty: 180 3RF metolazone 2.5 mg tablet 2.5 mg PO DAILY Qty: 90 3RF ferrous sulfate 325 mg (65 mg iron) Tablet 325 mg PO BID nitroglycerin [Nitrostat] 0.4 mg Tablet, Sublingual 0.4 mg SUBLINGUAL Q5-15M PRN (Reason: Chest Pain) folic acid 1 mg Tablet 1 mg PO DAILY finasteride 5 mg Tablet 5 mg PO DAILY loratadine 10 mg Tablet 10 mg PO DAILY isosorbide mononitrate 60 mg Tablet Extended Release 24 Hr 30 mg PO DAILY potassium chloride 20 mEq Tablet Extended Release 20 meq PO TID Discontinued eplerenone 50 mg tablet 50 mg PO DAILY Qty: 90 3RF carvedilol 12.5 mg Tablet 12.5 mg PO BID Rx Instructions: must administer with a meal/food Follow up/Referrals: Barrera Roth MD [Primary Care Provider] - 2 Weeks (please get in with [place] cardiology to discuss meds) Visit Report/Discharge Packet Stand Alone Forms: Patient Portal/API, Stroke Signs & Symptoms Discharge Data Primary Care Provider: Barrera Roth V Discharges patient from system. Discharge Date/Time: 04/04/23 14:05 Quality VTE Deep Vein Thrombosis/Pulmonary Embolism Present on Admission: No
== END 2023-04-04 14:05 | disposition home health service (06) | DRG 309 ==
LOC: ED 13:28 → AC 13:29 → ICU 16:02
PROVIDERS: Anesthesiology Critical Care Medicine; Internal Medicine Pulmonary Disease; Student in an Organized Health Care Education/Training Program; Admitting Provider Hospitalist; Emergency Provider Emergency Medicine; PCP Internal Medicine; Referring Provider Emergency Medicine; Visit Provider Hospitalist
DX: R00.1 Bradycardia, unspecified (principal); E87.1 Hypo-osmolality and hyponatremia; K50.90 Crohn's disease, unspecified, without complications; I48.20 Chronic atrial fibrillation, unspecified; E87.5 Hyperkalemia; D64.9 Anemia, unspecified; I10 Essential (primary) hypertension; I27.20 Pulmonary hypertension, unspecified; I25.10 Atherosclerotic heart disease of native coronary artery without angina pectoris; J45.909 Unspecified asthma, uncomplicated; E86.0 Dehydration; E87.6 Hypokalemia; F41.9 Anxiety disorder, unspecified; T50.995A Adverse effect of other drugs, medicaments and biological substances, initial encounter; E78.2 Mixed hyperlipidemia; N40.0 Benign prostatic hyperplasia without lower urinary tract symptoms; Z79.01 Long term (current) use of anticoagulants
CPT/HCPCS: 0241U; 36415; 36430; 36592; 51798; 71045; 80048; 80053; 81001; 81003; 82607; 82746; 82962; 83540; 83550; 83690; 83735; 84145; 85025; 85610; 85730; 86140; 86850; 86900; 86901; 87086; 87507; 93005; 96374; 96375; 97161; 99232; 99284; 99285; P9016; C9113; J0461; J0612; J1940; J7613

== ENCOUNTER → 2023-04-17 15:39 | Outpatient (CLI) | payer MEDICARE, OTHER, SELFPAY ==
[2023-01-17 02:34] VITALS: PULSE 75; RESP 37; O2SAT 94
[2023-03-31 13:35] VITALS: BMI 28.3
[2023-04-17 16:42] LABS: Hematocrit 29.8 % (41-53); Hemoglobin 9.4 g/dL (13.5-17.5); Mean Corpuscular HGB Conc 31.4 % (30-36); Mean Corpuscular Hemoglobin 24.5 PG (26-34); Platelet Count 176 X10^3/uL (150-400); Red Blood Cell Count 3.82 X10^6/uL (4.5-5.9); Red Cell Distribution Width 19.4 % (11.6-14.8); White Blood Cell Count 3.7 X10^3/uL (4.5-11.0)
[2023-04-17 17:06] LABS: BUN Creatinine Ratio 24.6 (6-22); Blood Urea Nitrogen 16 mg/dL (9-20); Calcium 9.3 mg/dL (8.4-10.2); Carbon Dioxide 32 mmol/L (22-32); Chloride 92 mmol/L (98-107); Estimated Glomerular Filt Rate > 60 mL/min (>60); Glucose 103 mg/dL (80-110); HEMOLYSIS < 15 (0-50); Potassium 3.2 mmol/L (3.4-5.1); Sodium 134 mmol/L (137-145)
== END ==
PROVIDERS: PCP Internal Medicine; Referring Provider Internal Medicine; Visit Provider Internal Medicine
DX: E87.5 Hyperkalemia (principal); D64.9 Anemia, unspecified
CPT/HCPCS: 36415; 80048; 85027

== ENCOUNTER → 2023-04-25 14:58 | Outpatient (CLI) | payer MEDICARE, OTHER, SELFPAY ==
[2023-01-17 02:34] VITALS: PULSE 75; RESP 37; O2SAT 94
[2023-03-31 13:35] VITALS: BMI 28.3
[2023-04-25 18:34] LABS: HEMOLYSIS < 15 (0-50)
== END ==
PROVIDERS: PCP Internal Medicine; Referring Provider Internal Medicine; Visit Provider Internal Medicine
DX: E87.5 Hyperkalemia (principal)
CPT/HCPCS: 36415; 84132

== ENCOUNTER → 2023-05-07 13:37 | Outpatient (CLI) | payer MEDICARE, OTHER, SELFPAY ==
[2023-01-17 02:34] VITALS: PULSE 75; RESP 37; O2SAT 94
[2023-03-31 13:35] VITALS: BMI 28.3
[2023-05-07 14:32] LABS: Blood Urea Nitrogen 36 mg/dL (9-20); Calcium 9.1 mg/dL (8.4-10.2); Carbon Dioxide 39 mmol/L (22-32); Chloride 91 mmol/L (98-107); Estimated Glomerular Filt Rate > 60 mL/min (>60); Glucose 95 mg/dL (80-110); HEMOLYSIS < 15 (0-50); Magnesium 2.1 mg/dL (1.6-2.3); Potassium 3.2 mmol/L (3.4-5.1); Sodium 135 mmol/L (137-145)
== END ==
PROVIDERS: PCP Internal Medicine; Referring Provider Internal Medicine; Visit Provider Internal Medicine
DX: E87.6 Hypokalemia (principal); D64.9 Anemia, unspecified; I10 Essential (primary) hypertension; E78.2 Mixed hyperlipidemia; E61.2 Magnesium deficiency
CPT/HCPCS: 36415; 80048; 83735

== ENCOUNTER → 2023-05-15 14:38 | Outpatient (CLI) | payer MEDICARE, OTHER, SELFPAY ==
[2023-01-17 02:34] VITALS: PULSE 75; RESP 37; O2SAT 94
[2023-03-31 13:35] VITALS: BMI 28.3
[2023-05-15 16:19] LABS: NT-proBNP (BNP-Adult 18+) 2340 pg/mL (<450)
[2023-05-15 16:20] LABS: Add Manual Diff / Slide Review NO; Basophils Absolute Auto 0 /uL (0-100); Basophils Percent Auto 0.5 % (0-2); Eosinophils Absolute Auto 400 /uL (0-450); Hematocrit 25.8 % (41-53); Hemoglobin 8.5 g/dL (13.5-17.5); Lymphocytes Absolute Auto 600 /uL (1100-4500); Lymphocytes Percent Auto 11.7 % (25-40); Mean Corpuscular HGB Conc 32.8 % (30-36); Mean Corpuscular Hemoglobin 25.4 PG (26-34); Mean Corpuscular Volume 77.5 fL (80-100); Monocytes Absolute Auto 800 /uL (0-900); Monocytes Percent Auto 15.7 % (3-14); Neutrophils Absolute Auto 3200 /uL (1500-7000); Neutrophils Percent Auto 64.1 % (50-75); Platelet Count 158 X10^3/uL (150-400); Red Blood Cell Count 3.33 X10^6/uL (4.5-5.9); Red Cell Distribution Width 20.7 % (11.6-14.8)
[2023-05-15 18:39] LABS: Anisocytosis 2+; Platelet Estimate Adequate on smear
== END ==
PROVIDERS: PCP Internal Medicine; Referring Provider Orthopaedic Surgery; Visit Provider Orthopaedic Surgery
DX: I50.9 Heart failure, unspecified (principal); Z01.812 Encounter for preprocedural laboratory examination
CPT/HCPCS: 36415; 83880; 85025

== ENCOUNTER 2023-05-15 15:37 | Inpatient (IN) | payer MEDICARE, OTHER, SELFPAY ==
[2023-01-17 02:34] VITALS: PULSE 75; RESP 37; O2SAT 94
[2023-03-31 13:35] VITALS: BMI 28.3
[2023-05-15] VITALS (11 sets, daily range): BP systolic 102–118; BP diastolic 61–80; PULSE 99–108; RESP 17–31; TEMP 36.5–37.1; O2SAT 94–99; BMI 31.4
--- NOTE | 2023-05-15 16:26 | DI.RAD.S_ITS ---
PROCEDURE: XR CHEST 1V INDICATIONS: chest pain TECHNIQUE: One view of the chest was acquired. COMPARISON: [facility], CR, XR CHEST 1V, 03/31/2023, 20:30. [facility], CR, XR CHEST 1V, 01/20/2023, 12:06. FINDINGS: Surgical changes and devices: Median sternotomy wires. Valvuloplasty. Lungs and pleura: Hazy opacities in the bilateral mid and lower lung [place]. No pleural effusions or pneumothorax. Mediastinum: Mediastinal contours appear normal. Heart size is enlarged. Bones and chest wall: No suspicious bony lesions. Overlying soft tissues appear unremarkable. IMPRESSION: Hazy opacities in the bilateral mid and lower lung [place], may represent edema or atypical infection. Dictated by: Doug Griffin M.D. on 05/15/2023 at 16:57 Approved by: Doug Griffin M.D. on 05/15/2023 at 16:58
[2023-05-15 16:38] LABS: INR 1.7 (0.9-1.3); Prothrombin Time 19.8 SECONDS (10.1-12.7)
[2023-05-15 16:41] LABS: PTT Partial Thromboplastin Tim 34 SECONDS (26-36)
[2023-05-15 16:44] LABS: Alanine Aminotransferase 20 IU/L (<50); Albumin 3.7 g/dL (3.5-5.0); Albumin Globulin Ratio 1.4 (1.0-2.8); Alkaline Phosphatase 72 U/L (38-126); Aspartate Aminotransferase 31 IU/L (17-59); BUN Creatinine Ratio 48.5 (6-22); Bilirubin Total 0.8 mg/dL (0.2-1.3); Blood Urea Nitrogen 33 mg/dL (9-20); Calcium 9.1 mg/dL (8.4-10.2); Carbon Dioxide 33 mmol/L (22-32); Chloride 93 mmol/L (98-107); Creatine Kinase 40 U/L (55-170); Estimated Glomerular Filt Rate > 60 mL/min (>60); Globulin 2.7 g/dL (1.7-4.1); Glucose 95 mg/dL (80-110); HEMOLYSIS < 15 (0-50); Lipase 80 U/L (23-300); Potassium 3.3 mmol/L (3.4-5.1); Sodium 132 mmol/L (137-145); Total Protein 6.4 g/dL (6.3-8.2)
[2023-05-15 16:55] LABS: Troponin I < 0.012 ng/mL (0.01-0.034)
[2023-05-15 16:56] LABS: Add Manual Diff / Slide Review NO; Basophils Absolute Auto 0 /uL (0-100); Basophils Percent Auto 0.8 % (0-2); Eosinophils Absolute Auto 400 /uL (0-450); Eosinophils Percent Auto 7.7 % (2-4); Hematocrit 26.9 % (41-53); Hemoglobin 8.6 g/dL (13.5-17.5); Lymphocytes Absolute Auto 700 /uL (1100-4500); Lymphocytes Percent Auto 13.1 % (25-40); Mean Corpuscular Volume 78.1 fL (80-100); Monocytes Absolute Auto 700 /uL (0-900); Monocytes Percent Auto 14.7 % (3-14); Neutrophils Absolute Auto 3200 /uL (1500-7000); Neutrophils Percent Auto 63.7 % (50-75); Platelet Count 158 X10^3/uL (150-400); Red Blood Cell Count 3.45 X10^6/uL (4.5-5.9); Red Cell Distribution Width 20.8 % (11.6-14.8)
--- NOTE | 2023-05-15 21:16 | ED.GENADULT ---
HPI - General Adult General Chief complaint: Arrhythmia/Palpitations Stated complaint: rapid wt gain Time Seen by Provider: 05/15/23 20:22 Source: patient Mode of arrival: Ambulatory History of Present Illness HPI narrative: 82-year-old gentleman who had a preop appointment today for knee surgery was found to be tachycardic and relatively hypotensive, could not be cleared for surgery and came to the emergency room for further evaluation. Problems include chronic atrial fibrillation, coronary artery disease, chronic anemia, hypertension, pulmonary hypertension, hyperlipidemia Crohn's colitis, BPH. Primary care notes reviewed from today and it looks like he is gained 20 lb in the last month, is in atrial fibrillation which is a new finding for him. Most recent echocardiogram is January 16, 2023 shows an ejection fraction at 65-70% severe right ventricular dilatation and significant right ventricular systolic function is severely reduced. Did have a mitral valve repair in 2019. Admission for anemia with discharge April 04 of this year, admission for acute kidney injury vertebral compression fracture and chronic heart failure on March 11 of this year. In reviewing prior records it looks like at 1 point he had been on carvedilol for his atrial fibrillation as well as Coumadin. He is no longer on carvedilol and 2 prior admissions indicate relative bradycardia. Related Data Home Medications Medication Instructions Recorded Confirmed albuterol sulfate 90 mcg/actuation 2 puff INH PRN PRN Shortness Of 03/22/17 05/15/23 aerosol inhaler (Proventil HFA) Breath ##0 mesalamine 500 mg capsule,extended 1,000 mg PO BID ##0 03/24/17 05/15/23 release (Pentasa) calcium carbonate 500 mg-vitamin 3 tab PO DAILY ##0 03/31/17 05/15/23 D3 2.5 mcg (100 unit) chewable tablet ferrous sulfate 325 mg (65 mg 325 mg PO BID 05/18/18 05/15/23 iron) tablet finasteride 5 mg tablet 5 mg PO DAILY 05/18/18 05/15/23 folic acid 1 mg tablet 1 mg PO DAILY 05/18/18 05/15/23 loratadine 10 mg tablet 10 mg PO DAILY 05/18/18 05/15/23 nitroglycerin 0.4 mg sublingual 0.4 mg sublingual Q5-15M PRN Chest 05/18/18 05/15/23 tablet (Nitrostat) Pain simvastatin 40 mg tablet 20 mg PO BEDTIME 12/07/21 05/15/23 fluticasone propionate 50 1 spray intranasal PRN PRN allergy 02/07/22 05/15/23 mcg/actuation nasal symptoms spray,suspension acetaminophen 325 mg tablet 650 mg PO Q4H PRN Pain 04/24/22 05/15/23 alfuzosin 10 mg tablet,extended 10 mg PO DAILY 04/24/22 05/15/23 release 24 hr ascorbic acid (vitamin C) 500 mg 500 mg PO DAILY 04/24/22 05/15/23 tablet neomycin-polymyxin 1 ea topical DAILY PRN Skin 04/24/22 05/15/23 [id number]-[id number] top Irritation ointment omeprazole 20 mg tablet,delayed 20 mg PO DAILY 04/24/22 05/15/23 release isosorbide mononitrate 60 mg 30 mg PO DAILY 01/13/23 05/15/23 tablet,extended release 24 hr aspirin 81 mg capsule 81 mg PO DAILY 05/01/23 05/15/23 eplerenone 50 mg tablet 50 mg PO DAILY 05/01/23 05/15/23 magnesium oxide 500 mg capsule 500 mg PO BID 05/01/23 05/15/23 torsemide 100 mg tablet 100 mg PO DAILY PRN Weight Gain 05/01/23 05/15/23 Previous Rx's Medication Instructions Recorded tamsulosin 0.4 mg capsule 0.4 mg PO DAILY #90 caps 03/04/23 apixaban 5 mg tablet (Eliquis) 5 mg PO BID #180 tabs 03/20/23 potassium chloride 20 mEq 40 meq (2 x 20 mEq) PO TID #360 04/28/23 tablet,extended release tabs Allergies Allergy/AdvReac Type Severity Reaction Status Date / Time iodine Allergy Severe Blotches Verified 05/15/23 16:03 all over my body ibuprofen Allergy Mild NOT GOOD Verified 05/15/23 16:03 FOR STOMACH BLEEDING Sulfa (Sulfonamide Allergy Mild BURNED A Verified 05/15/23 16:03 Antibiotics) HOLE THRU INTESTINES thallium-201 Allergy Mild BREAKS OUT Verified 05/15/23 16:03 IN BLOTCHES AND ITCHING terazosin Allergy Hypotension Verified 05/15/23 16:03 spironolactone AdvReac Verified 05/15/23 16:03 Review of Systems Review of Systems Narrative: Pertinent positive and negative findings as per HPI Patient History Medical History (Updated 05/15/23 @ 22:13 by Katrina Freitas MD) Acute diastolic CHF (congestive heart failure) Anemia Right inguinal hernia History of colonic polyps 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 Mixed hyperlipidemia Essential hypertension Chronic diastolic CHF (congestive heart failure), NYHA class 1 Chronic anticoagulation Chronic atrial fibrillation Vision disorder Fractures Positive PPD Mumps Measles Chicken pox Tinnitus Hearing loss History of urinary incontinence (~2018) Diverticular disease Crohn's disease Myocardial infarction Coronary artery disease Pulmonary hypertension Asthma Surgical History Hx of heart artery stent (~1994) Anesthesia H/O mitral valve replacement (~03/2017) Family History Mother Congestive heart failure Father Coronary artery disease Social History household members: spouse Smoking Status: Never smoker alcohol intake: current substance use type: does not use Type(s) of exercise: walking frequency: daily Smoking Status: Never smoker alcohol intake frequency: holidays/special occasions only Substance Use Type: does not use Exam Initial Vital Signs Initial Vital Signs: Vital Signs Temperature 98.7 F 05/15/23 15:55 Pulse Rate 108 H 05/15/23 15:55 Respiratory Rate 20 05/15/23 15:55 Blood Pressure 102/66 05/15/23 15:55 Pulse Oximetry 97 05/15/23 15:55 Oxygen Delivery Method Room Air 05/15/23 15:55 General: Older appearing but in no acute distress. Able to give a complete and coherent history. Well-nourished well-developed HEENT: Moist mucous membranes, normal sclera with reactive pupils, Neck: No significant JVD, supple Respiratory: Lungs are with Full and symmetrical air movement and bibasilar crackles. No rhonchi. Cardiac: Irregular, rate is around 100. He is a 3/6 systolic murmur. Abdomen: Soft, nontender, good bowel tones, no flank pain Skin: Warm and dry, no rashes, he does have chronic venous stasis changes of the lower extremities Neurologic: Grossly neurologically intact with no obvious asymmetries or abnormalities Extremities: No trauma, right knee is swollen secondary to osteoarthritis and is chronic. Both legs with significant lower extremity edema right greater than left. Psych: Cooperative, appropriate insight and affect Course Orders Ordered: ED Orders 05/15/23 16:21 Complete Blood Count AUTO DIFF Stat Comprehensive Metabolic Panel Stat Lipase Stat Magnesium Stat PTT Partial Thromboplastin Long Stat Prothrombin Time INR Stat Troponin & CK Cardiac Panel Stat 05/15/23 16:25 EKG-12 Lead Stat 05/15/23 16:26 XR chest 1V Stat Vital Signs Vital signs: Vital Signs - 8 hr 05/15/23 15:55 05/15/23 20:02 05/15/23 20:06 Temperature 98.7 F Pulse Rate 108 H 102 H Respiratory Rate 20 17 Blood Pressure 102/66 104/64 Pulse Oximetry 97 99 Oxygen Delivery Method Room Air 05/15/23 20:06 05/15/23 20:07 05/15/23 20:30 Temperature Pulse Rate 103 H 102 H Respiratory Rate 18 18 Blood Pressure 105/80 105/68 Pulse Oximetry 97 99 Oxygen Delivery Method Room Air 05/15/23 20:30 05/15/23 21:00 05/15/23 21:00 Temperature Pulse Rate 104 H 104 H Respiratory Rate 18 31 H Blood Pressure 118/75 Pulse Oximetry 95 Oxygen Delivery Method Medical Decision Making Lab Data 05/15/23 16:21 05/15/23 16:21 Labs: Lab Results 05/15/23 Range/Units 16:21 WBC 5.0 (4.5-11.0) X10^3/uL RBC 3.45 L (4.5-5.9) X10^6/uL Hgb 8.6 L (13.5-17.5) g/dL Hct 26.9 L (41-53) % MCV 78.1 L (80-100) fL MCH 25.0 L (26-34) PG MCHC 32.0 (30-36) % RDW 20.8 H (11.6-14.8) % Plt Count 158 (150-400) X10^3/uL Neut % (Auto) 63.7 (50-75) % Lymph % (Auto) 13.1 L (25-40) % [place] % (Auto) 14.7 H (3-14) % Eos % (Auto) 7.7 H (2-4) % Baso % (Auto) 0.8 (0-2) % Neut # (Auto) 3200 (0307-8206) /uL Lymph # (Auto) 700 L (4996-3455) /uL [place] # (Auto) 700 (0-900) /uL Eos # (Auto) 400 (0-450) /uL Baso # (Auto) 0 (0-100) /uL PT 19.8 H (10.1-12.7) SECONDS INR 1.7 H (0.9-1.3) APTT 34 (26-36) SECONDS Sodium 132 L (137-145) mmol/L Potassium 3.3 L (3.4-5.1) mmol/L Chloride 93 L (98-107) mmol/L Carbon Dioxide 33 H (22-32) mmol/L BUN 33 H (9-20) mg/dL Creatinine 0.68 (0.66-1.25) mg/dL Estimated GFR > 60 (>60) mL/min BUN/Creatinine Ratio 48.5 H (6-22) Glucose 95 (80-110) mg/dL Calcium 9.1 (8.4-10.2) mg/dL Magnesium 2.0 (1.6-2.3) mg/dL Total Bilirubin 0.8 (0.2-1.3) mg/dL AST 31 (17-59) IU/L ALT 20 (<50) IU/L Alkaline Phosphatase 72 (38-126) U/L Total Creatine Kinase 40 L (55-170) U/L Troponin I < 0.012 (0.01-0.034) ng/mL Total Protein 6.4 (6.3-8.2) g/dL Albumin 3.7 (3.5-5.0) g/dL Globulin 2.7 (1.7-4.1) g/dL Albumin/Globulin Ratio 1.4 (1.0-2.8) Lipase 80 (23-300) U/L MDM Narrative Medical decision making narrative: CC: Atrial fibrillation with rapid ventricular response, relative hypotension, 20 lb weight gain recently. Complicating co-morbidities: Congestive heart failure, chronic atrial fibrillation, coronary artery disease, anemia, hypertension Data collected from: patient, daughter Social determinants of health that may influence the patients condition: Medical records reviewed: Primary care notes from today as well as discharge summary from April 04, 2023 are reviewed Differential considered: Congestive heart failure, pneumonia, anemia, acute coronary syndrome Exam documented above, pertinent findings include: Alert and appropriate he felt that his lower extremity edema was due to his osteoarthritis and was looking forward to a right knee replacement. He was not aware of the 20 lb weight gain over the last 6 weeks. He does have bibasilar crackles no significant JVD and significant bilateral lower extremity edema Lab Test results independently reviewed as above. Pertinent findings: CBC shows chronic stable anemia without significant leukocytosis Chemistries show mild hypokalemia at 3.3 that appears to be close to his baseline. Appropriate renal function. Troponin is undetectable BNP is elevated at 2340 Independently reviewed EKG atrial fibrillation at a rate of 111. No acute ischemic changes. QT is prolonged at 524 milliseconds Imaging studies independently reviewed: Chest x-ray is consistent with fluid overload with bilateral opacities in mid and lower lung [place]. Consultations: Care is reviewed with admitting hospitalist, Dr. Thompson. Admit is accepted. Treatments: IV Lasix, oral potassium, oral carvedilol Discussion: 82-year-old gentleman with history of chronic congestive heart failure and atrial fibrillation with multiple additional issues. Coreg appears she had been discontinued with his recent March hospitalization secondary to bradycardia. He is now presenting in atrial fibrillation with tachycardia/rapid ventricular response. I suspect that his congestive heart failure exacerbation is due to the tachycardia. He is significantly volume overloaded. There is no sign of infection. He currently is anticoagulated on apixaban. We will recommend hospitalization with IV Lasix and we will restart carvedilol for rate control to be further evaluated by the hospitalist service prior to discharge. Discharge Plan Departure Patient Disposition: Admitted As Inpatient Clinical Impression: Acute diastolic CHF (congestive heart failure), Atrial fibrillation with rapid ventricular response, Acute hypokalemia Admit Date/Time: 05/15/23 22:12 Admit Provider: Adryan Hardy
[2023-05-15] MEDS: FUROSEMIDE 120 MG in SODIUM CHLORIDE 0.9% 50 ML 124 MG IV (21:54)
[2023-05-15] MEDS: carvediloL 3.125 MG TABLET 6.25 MG PO (21:59)
[2023-05-15] MEDS: POTASSIUM CHLORIDE 20 MEQ TAB 40 MEQ PO (22:27)
[2023-05-16] VITALS (7 sets, daily range): BP systolic 103–108; BP diastolic 60–70; PULSE 61–92; RESP 18–21; TEMP 36.6–37.1; O2SAT 93–96
--- NOTE | 2023-05-16 01:10 | P.HP_ITS ---
History of Present Illness History of Present Illness Date Patient Seen: 05/16/23 Time Patient Seen: 01:10 Chief complaint: rapid wt gain Narrative: The pt is a 82 yo with a hx of chronic systolic and diastolic congestive heart failure who presents to the ER tonight because his PCP told him to go to the ER to be checked out. He denies any change in his condition, no SOB, dyspnea, fevers, chills, CP, cough, chest pressure, change in his baseline lower ext. edema. The pt reports that he checks his weight at home and states that there has been no change in his baseline, about 165lbs. His meds has not changed, he normally has edema in his legs and uses a walker or canes to ambulate in his house. [facility] Medical History (Updated 05/15/23 @ 22:13 by Katrina Freitas MD) Acute diastolic CHF (congestive heart failure) Anemia Right inguinal hernia History of colonic polyps 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 Mixed hyperlipidemia Essential hypertension Chronic diastolic CHF (congestive heart failure), NYHA class 1 Chronic anticoagulation Chronic atrial fibrillation Vision disorder Fractures Positive PPD Mumps Measles Chicken pox Tinnitus Hearing loss History of urinary incontinence (~2018) Diverticular disease Crohn's disease Myocardial infarction Coronary artery disease Pulmonary hypertension Asthma Surgical History Hx of heart artery stent (~1994) Anesthesia H/O mitral valve replacement (~03/2017) Family History Mother Congestive heart failure Father Coronary artery disease Social History household members: spouse Smoking Status: Never smoker alcohol intake: former substance use type: does not use Type(s) of exercise: walking frequency: daily Meds Home Medications and Allergies Home Medications Medication Instructions Recorded Confirmed Type albuterol sulfate 90 mcg/actuation 2 puff INH PRN PRN Shortness Of 03/22/17 05/15/23 History aerosol inhaler (Proventil HFA) Breath ##0 mesalamine 500 mg capsule,extended 1,000 mg PO BID ##0 03/24/17 05/15/23 History release (Pentasa) calcium carbonate 500 mg-vitamin 3 tab PO DAILY ##0 03/31/17 05/15/23 History D3 2.5 mcg (100 unit) chewable tablet ferrous sulfate 325 mg (65 mg 325 mg PO BID 05/18/18 05/15/23 History iron) tablet finasteride 5 mg tablet 5 mg PO DAILY 05/18/18 05/15/23 History folic acid 1 mg tablet 1 mg PO DAILY 05/18/18 05/15/23 History loratadine 10 mg tablet 10 mg PO DAILY 05/18/18 05/15/23 History nitroglycerin 0.4 mg sublingual 0.4 mg sublingual Q5-15M PRN Chest 05/18/18 05/15/23 History tablet (Nitrostat) Pain simvastatin 40 mg tablet 20 mg PO BEDTIME 12/07/21 05/15/23 History fluticasone propionate 50 1 spray intranasal PRN PRN allergy 02/07/22 05/15/23 History mcg/actuation nasal symptoms spray,suspension acetaminophen 325 mg tablet 650 mg PO Q4H PRN Pain 04/24/22 05/15/23 History alfuzosin 10 mg tablet,extended 10 mg PO DAILY 04/24/22 05/15/23 History release 24 hr ascorbic acid (vitamin C) 500 mg 500 mg PO DAILY 04/24/22 05/15/23 History tablet neomycin-polymyxin 1 ea topical DAILY PRN Skin 04/24/22 05/15/23 History J-muyljhxmfs-mhifloqjmquyew top Irritation ointment omeprazole 20 mg tablet,delayed 20 mg PO DAILY 04/24/22 05/15/23 History release isosorbide mononitrate 60 mg 30 mg PO DAILY 01/13/23 05/15/23 History tablet,extended release 24 hr tamsulosin 0.4 mg capsule 0.4 mg PO DAILY #90 caps 03/04/23 05/15/23 Rx apixaban 5 mg tablet (Eliquis) 5 mg PO BID #180 tabs 03/20/23 05/15/23 Rx potassium chloride 20 mEq 40 meq (2 x 20 mEq) PO TID #360 04/28/23 05/15/23 Rx tablet,extended release tabs aspirin 81 mg capsule 81 mg PO DAILY 05/01/23 05/15/23 History eplerenone 50 mg tablet 50 mg PO DAILY 05/01/23 05/15/23 History magnesium oxide 500 mg capsule 500 mg PO BID 05/01/23 05/15/23 History torsemide 100 mg tablet 100 mg PO DAILY PRN Weight Gain 05/01/23 05/15/23 History Allergies Allergy/AdvReac Type Severity Reaction Status Date / Time iodine Allergy Severe Blotches Verified 05/15/23 16:03 all over my body ibuprofen Allergy Mild NOT GOOD Verified 05/15/23 16:03 FOR STOMACH BLEEDING Sulfa (Sulfonamide Allergy Mild BURNED A Verified 05/15/23 16:03 Antibiotics) HOLE THRU INTESTINES thallium-201 Allergy Mild BREAKS OUT Verified 05/15/23 16:03 IN BLOTCHES AND ITCHING terazosin Allergy Hypotension Verified 05/15/23 16:03 spironolactone AdvReac Verified 05/15/23 16:03 Exam Vital Signs (past 8 hours): - 05/15/23 20:02 05/15/23 20:06 05/15/23 20:06 Temperature Pulse Rate 102 H 103 H Respiratory Rate 17 18 Blood Pressure 104/64 Pulse Oximetry 99 97 Oxygen Delivery Method Oxygen Flow Rate 05/15/23 20:07 05/15/23 20:30 05/15/23 20:30 Temperature Pulse Rate 102 H 104 H Respiratory Rate 18 18 Blood Pressure 105/80 105/68 Pulse Oximetry 99 95 Oxygen Delivery Method Room Air Oxygen Flow Rate 05/15/23 21:00 05/15/23 21:00 05/15/23 21:30 Temperature Pulse Rate 104 H Respiratory Rate 31 H Blood Pressure 118/75 115/61 Pulse Oximetry Oxygen Delivery Method Oxygen Flow Rate 05/15/23 21:30 05/15/23 21:59 05/15/23 22:00 Temperature Pulse Rate 99 H 102 H Respiratory Rate 27 H Blood Pressure 115/61 108/75 Pulse Oximetry 94 Oxygen Delivery Method Oxygen Flow Rate 05/15/23 22:00 05/15/23 22:30 05/15/23 22:30 Temperature Pulse Rate 101 H 104 H Respiratory Rate 22 30 H Blood Pressure 111/71 Pulse Oximetry 95 96 Oxygen Delivery Method Oxygen Flow Rate 05/15/23 22:30 05/15/23 22:48 05/15/23 23:16 Temperature 97.7 F Pulse Rate 101 H Respiratory Rate 20 Blood Pressure 107/72 Pulse Oximetry 95 95 Oxygen Delivery Method Room Air Room Air Oxygen Flow Rate 0 Oxygen Delivery Method Room Air Oxygen Flow Rate 0 Const General: cooperative, comfortable and well developed Resp Auscultation: clear to auscultation bilaterally Cardio Rate: regular rate Rhythm: regular rhythm GI Inspection: normal to inspection Auscultation: normal bowel sounds Neuro General: patient alert, patient awake and patient oriented x3 Objective Labs 05/15/23 16:21 05/15/23 16:21 Labs: Laboratory Results - last 24 hr 05/15/23 16:21 WBC 5.0 RBC 3.45 L Hgb 8.6 L Hct 26.9 L MCV 78.1 L MCH 25.0 L MCHC 32.0 RDW 20.8 H Plt Count 158 Neut % (Auto) 63.7 Lymph % (Auto) 13.1 L [place] % (Auto) 14.7 H Eos % (Auto) 7.7 H Baso % (Auto) 0.8 Neut # (Auto) 3200 Lymph # (Auto) 700 L [place] # (Auto) 700 Eos # (Auto) 400 Baso # (Auto) 0 PT 19.8 H INR 1.7 H APTT 34 Sodium 132 L Potassium 3.3 L Chloride 93 L Carbon Dioxide 33 H BUN 33 H Creatinine 0.68 Estimated GFR > 60 BUN/Creatinine Ratio 48.5 H Glucose 95 Calcium 9.1 Magnesium 2.0 Total Bilirubin 0.8 AST 31 ALT 20 Alkaline Phosphatase 72 Total Creatine Kinase 40 L Troponin I < 0.012 Total Protein 6.4 Albumin 3.7 Globulin 2.7 Albumin/Globulin Ratio 1.4 Lipase 80 Assessment & Plan Assessment and plan (1) Acute diastolic CHF (congestive heart failure): Status: Acute (2) Anemia: Qualifiers: Anemia type: unspecified type Qualified Code(s): D64.9 - Anemia, unspecified Status: Acute (3) Hypokalemia: Status: Acute (4) Chronic atrial fibrillation: Status: Acute Plan The pt was given 120 mg of lasix in the ER due to his home dose of 100 mg of torsemide because of his edema in the legs. He is essentially asymptomatic at this time. will continue to monitor his I/O's, daily weights, continue with 100mg of lasix BID, restarting home meds, on telemetry, repeat labs in am Quality VTE Deep Vein Thrombosis/Pulmonary Embolism Present on Admission: No
--- NOTE | 2023-05-16 04:19 | PC.ADMIT ---
Addendum entered by Myla East R.N. 05/16/23 07:20: Patient had critical potassium of 2.3, notified hospitalist Dr. Hardy and he said to notify the daytime MD. Unable to get ahold of Day time hospitalist. Passed on to oncoming RN, Jackson. Original Note: [id number] Admission Note: Patient arrived to ACU from ED at 23:05 via wheelchair, assisted to bed with 1PA. Denies chest pain, shortness of breath, or pain of any kind. Alert and oriented x 4, able to make needs known. Oriented to room and call light. Bed in low and locked position, call light within reach and bed alarm on. The patient,Tramaine Powell,82 y/o, was given written information regarding hospital policies, unit procedures and contact persons. Patient's smoking status: Never smoker. Vital Signs - 8 hr 05/15/23 20:30 05/15/23 20:30 05/15/23 21:00 Temperature Pulse Rate 104 H Respiratory Rate 18 Blood Pressure 105/68 118/75 Pulse Oximetry 95 Oxygen Delivery Method Oxygen Flow Rate 05/15/23 21:00 05/15/23 21:30 05/15/23 21:30 Temperature Pulse Rate 104 H 99 H Respiratory Rate 31 H 27 H Blood Pressure 115/61 Pulse Oximetry 94 Oxygen Delivery Method Oxygen Flow Rate 05/15/23 21:59 05/15/23 22:00 05/15/23 22:00 Temperature Pulse Rate 102 H 101 H Respiratory Rate 22 Blood Pressure 115/61 108/75 Pulse Oximetry 95 Oxygen Delivery Method Oxygen Flow Rate 05/15/23 22:30 05/15/23 22:30 05/15/23 22:30 Temperature Pulse Rate 104 H Respiratory Rate 30 H Blood Pressure 111/71 Pulse Oximetry 96 95 Oxygen Delivery Method Room Air Oxygen Flow Rate 05/15/23 22:48 05/15/23 23:16 05/16/23 02:30 Temperature 97.7 F Pulse Rate 101 H Respiratory Rate 20 Blood Pressure 107/72 Pulse Oximetry 95 95 Oxygen Delivery Method Room Air Room Air Oxygen Flow Rate 0 05/16/23 03:58 Temperature 98 F Pulse Rate 61 Respiratory Rate 21 Blood Pressure 108/62 Pulse Oximetry 93 Oxygen Delivery Method Oxygen Flow Rate 0
[2023-05-16 05:59] LABS: Add Manual Diff / Slide Review NO; Basophils Absolute Auto 100 /uL (0-100); Basophils Percent Auto 3.2 % (0-2); Eosinophils Absolute Auto 400 /uL (0-450); Eosinophils Percent Auto 8.2 % (2-4); Hematocrit 25.5 % (41-53); Hemoglobin 8.2 g/dL (13.5-17.5); Lymphocytes Absolute Auto 500 /uL (1100-4500); Lymphocytes Percent Auto 11.1 % (25-40); Mean Corpuscular Hemoglobin 24.9 PG (26-34); Mean Corpuscular Volume 77.9 fL (80-100); Monocytes Absolute Auto 600 /uL (0-900); Monocytes Percent Auto 12.7 % (3-14); Neutrophils Absolute Auto 2900 /uL (1500-7000); Neutrophils Percent Auto 64.8 % (50-75); Platelet Count 159 X10^3/uL (150-400); Red Blood Cell Count 3.27 X10^6/uL (4.5-5.9); Red Cell Distribution Width 20.8 % (11.6-14.8); White Blood Cell Count 4.5 X10^3/uL (4.5-11.0)
[2023-05-16 06:08] LABS: Blood Urea Nitrogen 26 mg/dL (9-20); Calcium 8.9 mg/dL (8.4-10.2); Carbon Dioxide 39 mmol/L (22-32); Chloride 92 mmol/L (98-107); Estimated Glomerular Filt Rate > 60 mL/min (>60); Glucose 103 mg/dL (80-110); HEMOLYSIS < 15 (0-50); Magnesium 1.9 mg/dL (1.6-2.3); Sodium 136 mmol/L (137-145)
[2023-05-16 06:33] LABS: Anisocytosis 2+; Macrocytosis 1+; Ovalocytes 1+
[2023-05-16 06:34] LABS: Hypochromasia 1+
[2023-05-16 06:55] LABS: Potassium 2.3 mmol/L (3.4-5.1)
[2023-05-16] MEDS: TAMSULOSIN 0.4 MG CAPSULE PO (08:09)
[2023-05-16] MEDS: POTASSIUM CHLORIDE IN WATER 10 MEQ/100 ML PIGGYBACK 100 MEQ IV ×4 (08:09→11:38)
[2023-05-16] MEDS: SPIRONOLACTONE 25 MG TABLET 50 MG PO (08:09)
[2023-05-16] MEDS: ASPIRIN 81 MG CHEW TAB PO (08:10)
[2023-05-16] MEDS: POTASSIUM CHLORIDE 20 MEQ TAB 40 MEQ PO (08:10)
[2023-05-16 13:22] LABS: BUN Creatinine Ratio 33.8 (6-22); Blood Urea Nitrogen 26 mg/dL (9-20); Calcium 9.1 mg/dL (8.4-10.2); Carbon Dioxide 37 mmol/L (22-32); Chloride 91 mmol/L (98-107); Estimated Glomerular Filt Rate > 60 mL/min (>60); Glucose 144 mg/dL (80-110); HEMOLYSIS < 15 (0-50); Potassium 3.9 mmol/L (3.4-5.1); Sodium 134 mmol/L (137-145)
--- NOTE | 2023-05-16 15:16 | P.DS_ITS ---
History of Present Illness History of Present Illness Date Patient Seen: 05/16/23 Time Patient Seen: 15:16 Chief complaint: rapid wt gain Narrative: The pt is a 82 yo with a hx of chronic systolic and diastolic congestive heart failure who presents to the ER tonight because his PCP told him to go to the ER to be checked out. He denies any change in his condition, no SOB, dyspnea, fevers, chills, CP, cough, chest pressure, change in his baseline lower ext. edema. The pt reports that he checks his weight at home and states that there has been no change in his baseline, about 165lbs. His meds has not changed, he normally has edema in his legs and uses a walker or canes to ambulate in his house. Discharge Providers Provider Date of admission: 05/15/23 22:12 Discharge Date: 05/16/23 Primary care physician: Barrera Roth MD Discharge provider: Aniket Pedro DO Summary Hospital Course Discharge Diagnosis: 1. Atrial fibrillation with RVR, improved 2. Chronic diastolic heart failure 3. Hypokalemia due to diuresis, improved 4. Chronic anemia, stable 5. CAD, chronic 6. Chronic inflammatory bowel disease in remission Hospital Course: This is an 82 year old male with multiple medical problems who was advised to go to the emergency room by his provider. He denies any chest pain, shortness of breath, weight gain or changes in his lower extremity edema. He was noted to have an elevated HR in the ER which improved with resumption of carvedilol which had been held on prior admission due to bradycardia, but also probably in the setting of hyperkalemia. The ER provider felt he was significantly volume overloaded, and gave 120 mg of IV lasix. His potassium dropped precipitously, but improved much more quickly with holding of additional diuresis and potassium repletion. He was still feeling well, without siginficant changes to his usual self, and wished to discharge home. He was restarted on low dose carvedilol, and he should continue his previous diuretic management with torsemide. Continued outpatient follow up with cardiology is recommended for medication optimization. Time Spent with Patient Time spent: Greater than 30 minutes Exam Vital Signs (past 8 hours): - 05/16/23 08:00 05/16/23 10:00 05/16/23 12:00 Temperature 97.9 F 98.8 F Pulse Rate 92 H 86 Respiratory Rate 18 18 Blood Pressure 103/60 105/70 Pulse Oximetry 94 94 96 Oxygen Delivery Method Room Air Oxygen Flow Rate 0 0 0 05/16/23 14:00 Temperature Pulse Rate Respiratory Rate Blood Pressure Pulse Oximetry 94 Oxygen Delivery Method Room Air Oxygen Flow Rate 0 Oxygen Delivery Method Room Air Oxygen Flow Rate 0 Const General: cooperative, comfortable and well developed Resp Auscultation: clear to auscultation bilaterally Cardio Rate: regular rate Rhythm: regular rhythm GI Inspection: normal to inspection Auscultation: normal bowel sounds Neuro General: patient alert, patient awake and patient oriented x3 Extrem Other: trace edema bilateral lower extremities Objective Labs 05/16/23 05:45 05/16/23 12:57 Labs: Laboratory Results - last 24 hr 05/15/23 05/16/23 05/16/23 16:21 05:45 12:57 WBC 5.0 4.5 RBC 3.45 L 3.27 L Hgb 8.6 L 8.2 L Hct 26.9 L 25.5 L MCV 78.1 L 77.9 L MCH 25.0 L 24.9 L MCHC 32.0 32.0 RDW 20.8 H 20.8 H Plt Count 158 159 Neut % (Auto) 63.7 64.8 Lymph % (Auto) 13.1 L 11.1 L Kershaw % (Auto) 14.7 H 12.7 Eos % (Auto) 7.7 H 8.2 H Baso % (Auto) 0.8 3.2 H Neut # (Auto) 3200 2900 Lymph # (Auto) 700 L 500 L [place]haw # (Auto) 700 600 Eos # (Auto) 400 400 Baso # (Auto) 0 100 RBC Morphology See below Hypochromasia 1+ H Anisocytosis 2+ H Macrocytosis 1+ H Ovalocytes 1+ H PT 19.8 H INR 1.7 H APTT 34 Sodium 132 L 136 L 134 L Potassium 3.3 L 2.3 L* 3.9 D Chloride 93 L 92 L 91 L Carbon Dioxide 33 H 39 H 37 H BUN 33 H 26 H 26 H Creatinine 0.68 0.65 L 0.77 Estimated GFR > 60 > 60 > 60 BUN/Creatinine Ratio 48.5 H 40.0 H 33.8 H Glucose 95 103 144 H Calcium 9.1 8.9 9.1 Magnesium 2.0 1.9 Total Bilirubin 0.8 AST 31 ALT 20 Alkaline Phosphatase 72 Total Creatine Kinase 40 L Troponin I < 0.012 Total Protein 6.4 Albumin 3.7 Globulin 2.7 Albumin/Globulin Ratio 1.4 Lipase 80 [facility] Medical History (Updated 05/15/23 @ 22:13 by Katrina Freitas MD) Acute diastolic CHF (congestive heart failure) Anemia Right inguinal hernia History of colonic polyps 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 Mixed hyperlipidemia Essential hypertension Chronic diastolic CHF (congestive heart failure), NYHA class 1 Chronic anticoagulation Chronic atrial fibrillation Vision disorder Fractures Positive PPD Mumps Measles Chicken pox Tinnitus Hearing loss History of urinary incontinence (~2018) Diverticular disease Crohn's disease Myocardial infarction Coronary artery disease Pulmonary hypertension Asthma Surgical History Hx of heart artery stent (~1994) Anesthesia H/O mitral valve replacement (~03/2017) Family History Mother Congestive heart failure Father Coronary artery disease Social History household members: spouse Smoking Status: Never smoker alcohol intake: former substance use type: does not use Type(s) of exercise: walking frequency: daily Discharge Plan Discharge Plan Patient Disposition: Home Provider Discharge Comment: You were admitted to the hospital for a rapid heart rate, this improved with medication which had previously been stopped. Please follow up with cardiology and PCP for continued medication adjustments. Please try to see your PCP next week if possible for review. You were restarted on a previous medication to help your heart rate be controlled. Discharge orders & Medications Prescriptions: New carvedilol 3.125 mg tablet 3.125 mg PO BID 30 Days Qty: 60 0RF Rx Instructions: must administer with a meal/food Continued albuterol sulfate [Proventil HFA] 90 MCG/PUFF HFA aerosol inhaler 2 puff INH PRN PRN (Reason: Shortness Of Breath) Qty: 0 Patient Comments: no longer taking mesalamine [Pentasa] 500 MG capsule, extended release 1,000 mg PO BID Qty: 0 Patient Comments: not sure if he is taking calcium carbonate-vitamin D3 500 mg-2.5 mcg (100 unit) Tablet,Chewable 3 tab PO DAILY Qty: 0 Rx Instructions: taking only for heartburn tamsulosin 0.4 mg capsule 0.4 mg PO DAILY Qty: 90 3RF potassium chloride 20 mEq tablet extended release 40 meq PO TID Qty: 360 1RF simvastatin 40 mg tablet 20 mg PO BEDTIME fluticasone propionate 50 mcg/actuation spray,suspension 1 spray intranasal PRN PRN (Reason: allergy symptoms) Rx Instructions: only as needed acetaminophen 325 mg tablet 650 mg PO Q4H PRN (Reason: Pain) alfuzosin 10 mg tablet extended release 24 hr 10 mg PO DAILY Rx Instructions: pt does not recognize administer after the same meal each day ascorbic acid (vitamin C) 500 mg tablet 500 mg PO DAILY Rx Instructions: pt states that he no longer takes this omeprazole 20 mg tablet,delayed release (DR/EC) 20 mg PO DAILY Patient Comments: pt does not recognize this med [id number] Ointment 1 ea topical DAILY PRN (Reason: Skin Irritation) Patient Comments: not taking regularly Eliquis 5 mg tablet 5 mg PO BID Qty: 180 3RF Rx Instructions: pt does not recognize ferrous sulfate 325 mg (65 mg iron) Tablet 325 mg PO BID Rx Instructions: no longer taking this nitroglycerin [Nitrostat] 0.4 mg Tablet, Sublingual 0.4 mg SUBLINGUAL Q5-15M PRN (Reason: Chest Pain) Patient Comments: use it for chest pain as needed, haven't needed it in quite a while folic acid 1 mg Tablet 1 mg PO DAILY Patient Comments: no longer taking finasteride 5 mg Tablet 5 mg PO DAILY Patient Comments: not sure if he is taking loratadine 10 mg Tablet 10 mg PO DAILY Patient Comments: hasnt taken any in awhile torsemide 100 mg Tablet 100 mg PO DAILY PRN (Reason: Weight Gain) magnesium oxide 500 mg capsule 500 mg PO BID Rx Instructions: unsure if he is taking it aspirin 81 mg Capsule 81 mg PO DAILY isosorbide mononitrate 60 mg Tablet Extended Release 24 Hr 30 mg PO DAILY Rx Instructions: unsure if he is taking Discontinued eplerenone 50 mg Tablet 50 mg PO DAILY Rx Instructions: pt does not recognize Follow up/Referrals: Barrera Roth MD [Primary Care Provider] - Diet/Activity/Treatments Diet: Diet as Tolerated and Low-sodium Activity: As tolerated, no restrictions Visit Report/Discharge Packet Stand Alone Forms: Congestive Heart Failure, Patient Portal/API, Stroke Signs & Symptoms Discharge Data Primary Care Provider: Barrera Roth VTE Deep Vein Thrombosis/Pulmonary Embolism Present on Admission: No
--- NOTE | 2023-05-16 15:34 | CM.DANOTE ---
DCP Assessment Note: Patient is a 82yo M here following a pre op appointment for knee surgery and was found to be tachycardic and relatively hypotensive, could not be cleared for surgery and came to the emergency room for further evaluation. (ER Doc) PCP Dr Ira Cisneros Medicare and [facility] PRODUCTION SPECIALIST reviewed EMR. Per provider in rounds, patient may d/c today. PRODUCTION SPECIALIST entered room and introduced self and role. patient resting in bed. Patient lives in [place] with spouse and Dtr/SANJU next door. Patient uses canes/walker at home at baseline. Grab bars and shower seat in bathroom. Hx of [facility]. Reports does not want [facility] this time, doesn't think needs HH services. Dtr or granddaughter help transport him as needed. He reports he has lots of family and friend support if needed, denies resources at this time. Plan: patient to d/c home today with family support. Transport with dtr, dtr on her way. CM team will continue to follow as needed. STEVE Garcia Discharge Planning/Care Management Advanced directive, confirm from CLINIC Start: 05/16/23 00:08 Freq: Q24H Status: Active Protocol: Document 05/16/23 00:08 (Rec: 05/16/23 01:07 [id number]) Advance Directive, confirm on record Time 01:06 Person contacted pt Copy received No CM Discharge Assessment Start: 05/16/23 15:31 Freq: Status: Active Protocol: Document 05/16/23 15:31 (Rec: 05/16/23 15:34 [id number]) Discharge Planning Assessment Assigned Pants Closer STEVE Bruce DPOA/Assigned Designee Name Italia (spouse) Contact Information [phone] Advance Directives? Yes Advance Directives on File No History Provided By Patient,Medical Record Prior Living Arrangements House Household Members spouse Type of transporation used prior to Relies on Others admit Comment dtr or granddaughter provide transport Independent with ADL's Yes Is patient alert and oriented? Yes Needs Assistance With Meal Prep,Home Chores / Shopping Comment used [facility] in past DME Already Rented / Owned FWW / Walker,Cane,Other Comment grab bars in shower, shower seat Barriers to Discharge No Comment Anticipate home w/supportive family and spouse Discharge Plan Home Transportation Arrangement Family available to provide transport at d/c If patient plan is home with home health TBD : Has signed face to face form been completed? SNF/HH Preference does not want to resume HH at this time Whiteboard Updated in Patient Room with Yes name and ext. # of Pants Closer Review Status In Process Next Review Type Continued Stay Review
== END 2023-05-16 16:17 | disposition home or self-care (01) | DRG 291 ==
LOC: ED 20:22 → AC 22:13
PROVIDERS: Emergency Medicine; Internal Medicine; Admitting Provider Internal Medicine; Emergency Provider Emergency Medicine; PCP Internal Medicine; Referring Provider Emergency Medicine; Visit Provider Internal Medicine
DX: I11.0 Hypertensive heart disease with heart failure (principal); I50.33 Acute on chronic diastolic (congestive) heart failure; I48.20 Chronic atrial fibrillation, unspecified; E87.6 Hypokalemia; I25.10 Atherosclerotic heart disease of native coronary artery without angina pectoris; D64.9 Anemia, unspecified; J45.909 Unspecified asthma, uncomplicated; N40.0 Benign prostatic hyperplasia without lower urinary tract symptoms; E78.2 Mixed hyperlipidemia; I50.9 Heart failure, unspecified
CPT/HCPCS: 36415; 71045; 80048; 80053; 82550; 83690; 83735; 83880; 84484; 85025; 85610; 85730; 93005; 96365; 99284; J1940

== ENCOUNTER 2023-05-21 14:25 | Emergency (ER) | payer MEDICARE, OTHER, SELFPAY ==
[2023-01-17 02:34] VITALS: PULSE 75; RESP 37; O2SAT 94
[2023-05-15 23:55] VITALS: BMI 31.4
[2023-05-21] VITALS (48 sets, daily range): BP systolic 96–115; BP diastolic 58–82; PULSE 102–116; RESP 18–20; TEMP 36.4–36.8; O2SAT 94–98; BMI 28.3
--- NOTE | 2023-05-21 14:42 | ED.GENADULT ---
HPI - General Adult General Chief complaint: Abdominal Pain Stated complaint: RLQ abd pain Time Seen by Provider: 05/21/23 14:28 Source: patient Mode of arrival: EMS Limitations: no limitations History of Present Illness HPI narrative: Patient is an 82-year-old male. Has a history of atrial fibrillation and CHF. Recently was here in the hospital. Comes in the emergency department today because of lower abdominal discomfort. He also states that he urinated on himself. Did not hurt to urinate but he states that he can not control his urine and did not make it to the bathroom. This has been going on since last night. No nausea or vomiting. No fevers. He would a bowel movement yesterday that was small but rather unremarkable. His abdominal pain did not change with having the bowel movement. He denies chest pain or shortness of breath. Has been able to take all of his medications as directed. No prior abdominal surgeries. He states that he does not feel like he is urinating frequently and does feel like he is emptying his bladder when he urinates. Related Data Home Medications Medication Instructions Recorded Confirmed albuterol sulfate 90 mcg/actuation 2 puff INH PRN PRN Shortness Of 03/22/17 05/15/23 aerosol inhaler (Proventil HFA) Breath ##0 mesalamine 500 mg capsule,extended 1,000 mg PO BID ##0 03/24/17 05/15/23 release (Pentasa) calcium carbonate 500 mg-vitamin 3 tab PO DAILY ##0 03/31/17 05/15/23 D3 2.5 mcg (100 unit) chewable tablet ferrous sulfate 325 mg (65 mg 325 mg PO BID 05/18/18 05/15/23 iron) tablet finasteride 5 mg tablet 5 mg PO DAILY 05/18/18 05/15/23 folic acid 1 mg tablet 1 mg PO DAILY 05/18/18 05/15/23 loratadine 10 mg tablet 10 mg PO DAILY 05/18/18 05/15/23 nitroglycerin 0.4 mg sublingual 0.4 mg sublingual Q5-15M PRN Chest 05/18/18 05/15/23 tablet (Nitrostat) Pain simvastatin 40 mg tablet 20 mg PO BEDTIME 12/07/21 05/15/23 fluticasone propionate 50 1 spray intranasal PRN PRN allergy 02/07/22 05/15/23 mcg/actuation nasal symptoms spray,suspension acetaminophen 325 mg tablet 650 mg PO Q4H PRN Pain 04/24/22 05/15/23 alfuzosin 10 mg tablet,extended 10 mg PO DAILY 04/24/22 05/15/23 release 24 hr ascorbic acid (vitamin C) 500 mg 500 mg PO DAILY 04/24/22 05/15/23 tablet neomycin-polymyxin 1 ea topical DAILY PRN Skin 04/24/22 05/15/23 V-[id number]-[id number] top Irritation ointment omeprazole 20 mg tablet,delayed 20 mg PO DAILY 04/24/22 05/15/23 release isosorbide mononitrate 60 mg 30 mg PO DAILY 01/13/23 05/15/23 tablet,extended release 24 hr aspirin 81 mg capsule 81 mg PO DAILY 05/01/23 05/15/23 magnesium oxide 500 mg capsule 500 mg PO BID 05/01/23 05/15/23 torsemide 100 mg tablet 100 mg PO DAILY PRN Weight Gain 05/01/23 05/15/23 Previous Rx's Medication Instructions Recorded tamsulosin 0.4 mg capsule 0.4 mg PO DAILY #90 caps 03/04/23 apixaban 5 mg tablet (Eliquis) 5 mg PO BID #180 tabs 03/20/23 potassium chloride 20 mEq 40 meq (2 x 20 mEq) PO TID #360 04/28/23 tablet,extended release tabs carvedilol 3.125 mg tablet 3.125 mg PO BID 30 days #60 tabs 05/16/23 nitrofurantoin 100 mg PO Q12H 5 days #10 caps 05/21/23 monohydrate/macrocrystals 100 mg capsule (Macrobid) Allergies Allergy/AdvReac Type Severity Reaction Status Date / Time iodine Allergy Severe Blotches Verified 05/15/23 16:03 all over my body ibuprofen Allergy Mild NOT GOOD Verified 05/15/23 16:03 FOR STOMACH BLEEDING Sulfa (Sulfonamide Allergy Mild BURNED A Verified 05/15/23 16:03 Antibiotics) HOLE THRU INTESTINES thallium-201 Allergy Mild BREAKS OUT Verified 05/15/23 16:03 IN BLOTCHES AND ITCHING terazosin Allergy Hypotension Verified 05/15/23 16:03 spironolactone AdvReac Verified 05/15/23 16:03 Review of Systems Constitutional Constitutional: Reports system reviewed and no additional complaints, except as documented Cardiovascular Cardiovascular: Reports system reviewed and no additional complaints, except as documented Gastrointestinal Gastrointestinal: Reports system reviewed and no additional complaints, except as documented Genitourinary Genitourinary: Reports system reviewed and no additional complaints, except as documented Integumentary/Breasts Skin/Breast: Reports system reviewed and no additional complaints, except as documented Neurologic Neurologic: Reports system reviewed and no additional complaints, except as documented Patient History Medical History Acute diastolic CHF (congestive heart failure) Anemia Right inguinal hernia History of colonic polyps 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 Mixed hyperlipidemia Essential hypertension Chronic diastolic CHF (congestive heart failure), NYHA class 1 Chronic anticoagulation Chronic atrial fibrillation Vision disorder Fractures Positive PPD Mumps Measles Chicken pox Tinnitus Hearing loss History of urinary incontinence (~2018) Diverticular disease Crohn's disease Myocardial infarction Coronary artery disease Pulmonary hypertension Asthma Surgical History Hx of heart artery stent (~1994) Anesthesia H/O mitral valve replacement (~03/2017) Family History Mother Congestive heart failure Father Coronary artery disease Social History household members: spouse Smoking Status: Never smoker alcohol intake: former substance use type: does not use Type(s) of exercise: walking frequency: daily Smoking Status: Never smoker alcohol intake frequency: holidays/special occasions only Substance Use Type: does not use Exam Initial Vital Signs Initial Vital Signs: Vital Signs Temperature 98.2 F 05/21/23 14:30 Pulse Rate 112 H 05/21/23 14:30 Blood Pressure 108/69 05/21/23 14:30 Pulse Oximetry 98 05/21/23 14:30 Oxygen Delivery Method Room Air 05/21/23 14:30 HENAK Head: normal to inspection and normocephalic Resp Effort & Inspection: normal respiratory effort Auscultation: clear to auscultation bilaterally Cardio Rate: tachycardic GI Inspection: normal to inspection and non-distended Palpation: soft, No firm, No guarding and tender (Lower abdomen) Neuro General: patient alert, patient awake and moves all extremities Course Orders Ordered: Discontinued Medications Morphine Sulfate (Morphine 2 Mg/Ml Inj) 2 mg IV NOW ONE Stop: 05/21/23 16:15 Last Admin: 05/21/23 16:17 Dose: 2 mg Documented By: RB Nitrofurantoin Macrocrystals (Nitrofurantoin Er 100 Mg Capsule) 100 mg PO NOW ONE Stop: 05/21/23 17:33 Last Admin: 05/21/23 18:12 Dose: 100 mg Documented By: AMV Ondansetron HCl (Ondansetron 4 Mg/2 Ml Inj) 4 mg IV NOW PRN PRN Reason: Nausea And Vomiting Ondansetron HCl (Ondansetron 4 Mg Odt) 4 mg PO NOW PRN PRN Reason: Nausea And Vomiting Potassium Chloride (Potassium Chloride 20 Meq Tab) 20 meq PO NOW ONE Stop: 05/21/23 17:46 Last Admin: 05/21/23 18:12 Dose: 20 meq Documented By: AMV Sodium Biphosphate/Sodium Phosphate (Fleets Enema) 1 each SC NOW ONE Stop: 05/21/23 17:33 Last Admin: 05/21/23 19:00 Dose: 1 each Documented By: LUC Vital Signs Vital signs: Vital Signs - 8 hr 05/21/23 14:30 05/21/23 14:30 05/21/23 14:33 Temperature 98.2 F 98.2 F Pulse Rate 112 H 113 H Respiratory Rate 18 Blood Pressure 108/69 108/69 Pulse Oximetry 98 96 Oxygen Delivery Method Room Air Room Air 05/21/23 15:00 05/21/23 15:30 05/21/23 15:42 Temperature Pulse Rate 111 H 113 H 106 H Respiratory Rate Blood Pressure 110/72 106/59 L Pulse Oximetry 96 94 96 Oxygen Delivery Method Room Air Room Air 05/21/23 15:43 05/21/23 15:43 05/21/23 15:45 Temperature Pulse Rate 109 H Respiratory Rate Blood Pressure 108/66 102/63 Pulse Oximetry 96 Oxygen Delivery Method 05/21/23 15:45 05/21/23 15:50 05/21/23 15:50 Temperature Pulse Rate 109 H 111 H Respiratory Rate Blood Pressure 109/68 Pulse Oximetry 95 96 Oxygen Delivery Method 05/21/23 15:55 05/21/23 15:55 05/21/23 16:00 Temperature Pulse Rate 106 H Respiratory Rate Blood Pressure 100/74 100/74 Pulse Oximetry 95 Oxygen Delivery Method 05/21/23 16:00 05/21/23 16:10 05/21/23 16:10 Temperature Pulse Rate 110 H 110 H Respiratory Rate Blood Pressure 107/68 Pulse Oximetry 95 95 Oxygen Delivery Method 05/21/23 16:15 05/21/23 16:15 05/21/23 16:27 Temperature Pulse Rate 110 H 108 H Respiratory Rate Blood Pressure 107/66 Pulse Oximetry 94 95 Oxygen Delivery Method 05/21/23 16:27 05/21/23 16:30 05/21/23 16:31 Temperature Pulse Rate 110 H Respiratory Rate Blood Pressure 104/66 97/66 Pulse Oximetry 95 Oxygen Delivery Method 05/21/23 16:31 05/21/23 16:35 05/21/23 16:35 Temperature Pulse Rate 107 H 106 H Respiratory Rate Blood Pressure 104/67 Pulse Oximetry 95 97 Oxygen Delivery Method 05/21/23 16:40 05/21/23 16:40 05/21/23 16:43 Temperature Pulse Rate 110 H Respiratory Rate Blood Pressure 99/64 96/68 Pulse Oximetry 96 Oxygen Delivery Method 05/21/23 16:43 Temperature Pulse Rate 108 H Respiratory Rate Blood Pressure Pulse Oximetry 97 Oxygen Delivery Method Medical Decision Making Lab Data Lab results reviewed: Yes I reviewed the patient's lab results. 05/21/23 14:53 05/21/23 14:53 Labs: Lab Results 05/21/23 05/21/23 Range/Units 14:53 15:23 WBC 4.5 (4.5-11.0) X10^3/uL RBC 3.20 L (4.5-5.9) X10^6/uL Hgb 8.2 L (13.5-17.5) g/dL Hct 25.3 L (41-53) % MCV 79.1 L (80-100) fL MCH 25.5 L (26-34) PG MCHC 32.3 (30-36) % RDW 19.7 H (11.6-14.8) % Plt Count 143 L (150-400) X10^3/uL Neut % (Auto) 66.5 (50-75) % Lymph % (Auto) 11.3 L (25-40) % Carter % (Auto) 15.9 H (3-14) % Eos % (Auto) 5.2 H (2-4) % Baso % (Auto) 1.1 (0-2) % Neut # (Auto) 3000 (6581-2358) /uL Lymph # (Auto) 500 L (5063-9117) /uL Carter # (Auto) 700 (0-900) /uL Eos # (Auto) 200 (0-450) /uL Baso # (Auto) 100 (0-100) /uL Sodium 135 L (137-145) mmol/L Potassium 2.8 L (3.4-5.1) mmol/L Chloride 94 L (98-107) mmol/L Carbon Dioxide 35 H (22-32) mmol/L BUN 39 H (9-20) mg/dL Creatinine 0.67 (0.66-1.25) mg/dL Estimated GFR > 60 (>60) mL/min BUN/Creatinine Ratio 58.2 H (6-22) Glucose 120 H (80-110) mg/dL Lactate 2.0 (0.7-2.1) mmol/L Calcium 8.7 (8.4-10.2) mg/dL Total Bilirubin 0.7 (0.2-1.3) mg/dL AST 35 (17-59) IU/L ALT 22 (<50) IU/L Alkaline Phosphatase 64 (38-126) U/L Total Protein 5.9 L (6.3-8.2) g/dL Albumin 3.3 L (3.5-5.0) g/dL Globulin 2.6 (1.7-4.1) g/dL Albumin/Globulin Ratio 1.3 (1.0-2.8) Lipase 99 (23-300) U/L Urine Color Yellow Urine Appearance Clear Urine pH 6.0 (4.5-8.0) Ur Specific [place] 1.010 (1.000-1.035) Urine Protein Negative (Negative) Urine Glucose (UA) Negative (Negative) g/dL Urine Ketones Negative (NEGATIVE) Urine Occult Blood Negative (Negative) Urine Nitrate Negative (Negative) Urine Bilirubin Negative (NEGATIVE) Urine Urobilinogen 0.2 (0.2) E.U./dL Ur Leukocyte Esterase 1+ H (NEGATIVE) Urine RBC 0-1/hpf (0-5/HPF) Urine WBC 5-10/hpf H (0-5/HPF) Ur Squamous Epith Cells None seen (0-5/HPF) Urine Bacteria Few (2-10) H (None) Ur Culture Indicated? Specimen cultured Imaging Data CT scan - abdomen/pelvis: Radiologist's Impression: PROCEDURE: CT ABDOMEN PELVIS WO CON INDICATIONS: Right lower quadrant/suprapubic abdominal pain TECHNIQUE: Axial sections were acquired from the lung bases to the pubic symphysis. Coronal and sagittal reformats were performed. For radiation dose reduction, the following was used: automated exposure control, adjustment of mA and/or kV according to patient size. COMPARISON: [facility], CT, CT LUMBAR SPINE WO CON, 03/09/2023, 3:05. [facility], CT, CT ABDOMEN PELVIS W CON, 01/04/2020, 18:09. FINDINGS: Image quality: Excellent. Lung bases: Unremarkable. Heart: Heart is moderately enlarged. A prosthetic mitral valve is seen. Coronary artery calcifications and/or stents. Bilateral gynecomastia. URINARY: Kidneys and ureters: No renal or ureteral calculus or hydronephrosis. Bladder: Mildly distended. Normal wall thickness. No stones. ABDOMEN: Liver: Liver measures approximately 19.6 cm and craniocaudal dimension. No focal hepatic lesion is seen on this noncontrast exam. Gallbladder: Multiple calcified gallstones are seen without secondary signs of acute cholecystitis. Biliary ducts: Unremarkable. Pancreas: Unremarkable. Spleen: Spleen measures up to 13.8 cm and craniocaudal dimension. A splenule is noted inferior to the spleen. Adrenal Glands: Unremarkable. Stomach and Bowel: Prominent stool in the rectum. There is also moderate stool throughout the majority of the colon. Small bowel loops are unremarkable. Stomach is mildly distended with food material. Peritoneum: No abnormal intraperitoneal fluid. No free air. Ventral Wall: No hernia. Mild soft tissue anasarca. Abdominal Nodes: No enlarged retroperitoneal or mesenteric lymph nodes. Vessels: Aorta and inferior vena cava are normal in size. Aortoiliac atherosclerotic calcifications. PELVIS: Pelvic Organs: Metallic fiducials are seen in the prostate. Pelvic Nodes: Unremarkable. Miscellaneous: No inguinal hernias are seen. Bones: Mild L3 compression fracture is seen with increased loss of vertebral body height when compared to the CT from 03/09/2023. No definite osteoblastic lesion is seen. Probable old healed right-sided rib fractures. IMPRESSION: 1. L3 vertebral body compression fracture demonstrates mildly increased loss of vertebral body height when compared to the CT from 03/09/2023. 2. Prominent stool within the rectum. Recommend correlation for impaction. Moderate stool throughout the colon may indicate constipation. 3. Cholelithiasis without signs of acute cholecystitis. 4. Mild nonspecific hepatosplenomegaly. 5. Moderate cardiomegaly. 1. MDM Narrative Medical decision making narrative: Patient does have a benign abdominal exam. CT scan shows quite a bit of stool in his rectum. He was given an enema here in the ER. His urinalysis is also consistent with a urinary tract infection. His 1st dose of antibiotics was given here in the ER. Will send home with a prescription for antibiotics. Patient was also hypokalemic. According to his medicine list he has potassium at home and he was instructed to continue to take this as directed. There was no indication for admission to the hospital. Will discharge patient home with return precautions. Discharge Plan Departure Patient Disposition: Home Clinical Impression: Urinary tract infection, Constipation Instructions: DI for Urinary Tract Infection (UTI), DI for Constipation Activity Restrictions/Additional Instructions: According to your medicine list it appears that you have a prescription for potassium chloride at home. I recommend that you continue to take this as directed. The urine sample you provided today is consistent with a urinary tract infection. We do need to treat you with antibiotics because of this. Your 1st dose was given here in the emergency department and a prescription was sent to [facility] in [place].. On the CT scan today it does show that you are constipated. I recommend that you continue with a good bowel regimen to include stool softeners or even laxatives. You can purchase these [id number]. Continue the rest of your medicines as directed. Prescriptions: New nitrofurantoin monohyd/m-cryst [Macrobid] 100 mg capsule 100 mg PO Q12H 5 Days Qty: 10 0RF Rx Instructions: must administer with a meal/food No Action albuterol sulfate [Proventil HFA] 90 MCG/PUFF HFA aerosol inhaler 2 puff INH PRN PRN (Reason: Shortness Of Breath) Qty: 0 Patient Comments: no longer taking mesalamine [Pentasa] 500 MG capsule, extended release 1,000 mg PO BID Qty: 0 Patient Comments: not sure if he is taking calcium carbonate-vitamin D3 500 mg-2.5 mcg (100 unit) Tablet,Chewable 3 tab PO DAILY Qty: 0 Rx Instructions: taking only for heartburn tamsulosin 0.4 mg capsule 0.4 mg PO DAILY Qty: 90 3RF potassium chloride 20 mEq tablet extended release 40 meq PO TID Qty: 360 1RF simvastatin 40 mg tablet 20 mg PO BEDTIME fluticasone propionate 50 mcg/actuation spray,suspension 1 spray intranasal PRN PRN (Reason: allergy symptoms) Rx Instructions: only as needed acetaminophen 325 mg tablet 650 mg PO Q4H PRN (Reason: Pain) alfuzosin 10 mg tablet extended release 24 hr 10 mg PO DAILY Rx Instructions: pt does not recognize administer after the same meal each day ascorbic acid (vitamin C) 500 mg tablet 500 mg PO DAILY Rx Instructions: pt states that he no longer takes this omeprazole 20 mg tablet,delayed release (DR/EC) 20 mg PO DAILY Patient Comments: pt does not recognize this med [id number] Ointment 1 ea topical DAILY PRN (Reason: Skin Irritation) Patient Comments: not taking regularly Eliquis 5 mg tablet 5 mg PO BID Qty: 180 3RF Rx Instructions: pt does not recognize ferrous sulfate 325 mg (65 mg iron) Tablet 325 mg PO BID Rx Instructions: no longer taking this nitroglycerin [Nitrostat] 0.4 mg Tablet, Sublingual 0.4 mg SUBLINGUAL Q5-15M PRN (Reason: Chest Pain) Patient Comments: use it for chest pain as needed, haven't needed it in quite a while folic acid 1 mg Tablet 1 mg PO DAILY Patient Comments: no longer taking finasteride 5 mg Tablet 5 mg PO DAILY Patient Comments: not sure if he is taking loratadine 10 mg Tablet 10 mg PO DAILY Patient Comments: hasnt taken any in awhile torsemide 100 mg Tablet 100 mg PO DAILY PRN (Reason: Weight Gain) magnesium oxide 500 mg capsule 500 mg PO BID Rx Instructions: unsure if he is taking it aspirin 81 mg Capsule 81 mg PO DAILY isosorbide mononitrate 60 mg Tablet Extended Release 24 Hr 30 mg PO DAILY Rx Instructions: unsure if he is taking carvedilol 3.125 mg tablet 3.125 mg PO BID 30 Days Qty: 60 0RF Rx Instructions: must administer with a meal/food Referrals: Barrera Roth MD [Primary Care Provider] - Stand Alone Forms: Patient Portal/API
--- NOTE | 2023-05-21 15:25 | PC.NURSE ---
Pt reports lower abd pain ongoing for weeks. when asked what has changed pt states i just couldnt take it anymore. Lower abd tender. bladder scan 272. pt incontinent and wears condom cath at home. cath changed because it was leaking. full linen change and incontinence care provided. urine sample obtained. labs drawn from line. warm blankets given. resting on stretcher awaiting MD coy.
[2023-05-21 15:28] LABS: Add Manual Diff / Slide Review NO; Basophils Absolute Auto 100 /uL (0-100); Basophils Percent Auto 1.1 % (0-2); Eosinophils Absolute Auto 200 /uL (0-450); Eosinophils Percent Auto 5.2 % (2-4); Hematocrit 25.3 % (41-53); Hemoglobin 8.2 g/dL (13.5-17.5); Lymphocytes Absolute Auto 500 /uL (1100-4500); Lymphocytes Percent Auto 11.3 % (25-40); Mean Corpuscular HGB Conc 32.3 % (30-36); Mean Corpuscular Hemoglobin 25.5 PG (26-34); Mean Corpuscular Volume 79.1 fL (80-100); Monocytes Absolute Auto 700 /uL (0-900); Monocytes Percent Auto 15.9 % (3-14); Neutrophils Absolute Auto 3000 /uL (1500-7000); Neutrophils Percent Auto 66.5 % (50-75); Platelet Count 143 X10^3/uL (150-400); Red Cell Distribution Width 19.7 % (11.6-14.8); White Blood Cell Count 4.5 X10^3/uL (4.5-11.0)
[2023-05-21 15:50] LABS: Alanine Aminotransferase 22 IU/L (<50); Albumin 3.3 g/dL (3.5-5.0); Albumin Globulin Ratio 1.3 (1.0-2.8); Alkaline Phosphatase 64 U/L (38-126); Aspartate Aminotransferase 35 IU/L (17-59); BUN Creatinine Ratio 58.2 (6-22); Bilirubin Total 0.7 mg/dL (0.2-1.3); Blood Urea Nitrogen 39 mg/dL (9-20); Calcium 8.7 mg/dL (8.4-10.2); Carbon Dioxide 35 mmol/L (22-32); Chloride 94 mmol/L (98-107); Estimated Glomerular Filt Rate > 60 mL/min (>60); Globulin 2.6 g/dL (1.7-4.1); Glucose 120 mg/dL (80-110); HEMOLYSIS 17 (0-50); Lipase 99 U/L (23-300); Potassium 2.8 mmol/L (3.4-5.1); Sodium 135 mmol/L (137-145); Total Protein 5.9 g/dL (6.3-8.2)
[2023-05-21 15:53] LABS: Appearance Urine UA CLEAR; Bilirubin Urine UA NEGATIVE (NEGATIVE); Color Urine UA YELLOW; Glucose Urine UA NEGATIVE (Negative); Ketones Urine UA NEGATIVE (NEGATIVE); Leukocyte Esterase Urine UA 1+ (NEGATIVE); Nitrite Urine UA NEGATIVE (Negative); Occult Blood Urine UA NEGATIVE (Negative); Protein Urine UA NEGATIVE (Negative); Urobilinogen Urine UA 0.2 E.U./dL (0.2)
--- NOTE | 2023-05-21 16:04 | DI.CT.S_ITS ---
PROCEDURE: CT ABDOMEN PELVIS WO CON INDICATIONS: Right lower quadrant/suprapubic abdominal pain TECHNIQUE: Axial sections were acquired from the lung bases to the pubic symphysis. Coronal and sagittal reformats were performed. For radiation dose reduction, the following was used: automated exposure control, adjustment of mA and/or kV according to patient size. COMPARISON: [facility], CT, CT LUMBAR SPINE WO CON, 03/09/2023, 3:05. [facility], CT, CT ABDOMEN PELVIS W CON, 01/04/2020, 18:09. FINDINGS: Image quality: Excellent. Lung bases: Unremarkable. Heart: Heart is moderately enlarged. A prosthetic mitral valve is seen. Coronary artery calcifications and/or stents. Bilateral gynecomastia. URINARY: Kidneys and ureters: No renal or ureteral calculus or hydronephrosis. Bladder: Mildly distended. Normal wall thickness. No stones. ABDOMEN: Liver: Liver measures approximately 19.6 cm and craniocaudal dimension. No focal hepatic lesion is seen on this noncontrast exam. Gallbladder: Multiple calcified gallstones are seen without secondary signs of acute cholecystitis. Biliary ducts: Unremarkable. Pancreas: Unremarkable. Spleen: Spleen measures up to 13.8 cm and craniocaudal dimension. A splenule is noted inferior to the spleen. Adrenal Glands: Unremarkable. Stomach and Bowel: Prominent stool in the rectum. There is also moderate stool throughout the majority of the colon. Small bowel loops are unremarkable. Stomach is mildly distended with food material. Peritoneum: No abnormal intraperitoneal fluid. No free air. Ventral Wall: No hernia. Mild soft tissue anasarca. Abdominal Nodes: No enlarged retroperitoneal or mesenteric lymph nodes. Vessels: Aorta and inferior vena cava are normal in size. Aortoiliac atherosclerotic calcifications. PELVIS: Pelvic Organs: Metallic fiducials are seen in the prostate. Pelvic Nodes: Unremarkable. Miscellaneous: No inguinal hernias are seen. Bones: Mild L3 compression fracture is seen with increased loss of vertebral body height when compared to the CT from 03/09/2023. No definite osteoblastic lesion is seen. Probable old healed right-sided rib fractures. IMPRESSION: 1. L3 vertebral body compression fracture demonstrates mildly increased loss of vertebral body height when compared to the CT from 03/09/2023. 2. Prominent stool within the rectum. Recommend correlation for impaction. Moderate stool throughout the colon may indicate constipation. 3. Cholelithiasis without signs of acute cholecystitis. 4. Mild nonspecific hepatosplenomegaly. 5. Moderate cardiomegaly. 1. Approved by: Alban Pierre M.D. on 05/21/2023 at 17:14
[2023-05-21 16:06] LABS: RBC Urine 0-1/HPF (0-5/HPF); WBC Urine 5-10/HPF (0-5/HPF)
[2023-05-21 16:07] LABS: Bacteria Urine Few (2-10); Culture Indicated Urine Specimen Cultured; Squamous Epithelial Cell Urine None Seen (0-5/HPF)
[2023-05-21] MEDS: MORPHINE 2 MG/ML INJ IV (16:17)
[2023-05-21] MEDS: POTASSIUM CHLORIDE 20 MEQ TAB PO (18:12)
[2023-05-21] MEDS: NITROFURANTOIN ER 100 MG CAPSULE PO (18:12)
[2023-05-21] MEDS: FLEETS ENEMA 1 EACH PR (19:00)
== END 2023-05-21 20:10 | disposition home or self-care (01) ==
PROVIDERS: Emergency Provider Emergency Medicine; PCP Internal Medicine
DX: N39.0 Urinary tract infection, site not specified (principal); K59.00 Constipation, unspecified
CPT/HCPCS: 36415; 51798; 74176; 80053; 81001; 83605; 83690; 85025; 87077; 87086; 87186; 96374; 99284; J2270

== ENCOUNTER → 2023-06-16 13:43 | Outpatient (CLI) | payer MEDICARE, OTHER, SELFPAY ==
[2023-01-17 02:34] VITALS: PULSE 75; RESP 37; O2SAT 94
[2023-05-15 23:55] VITALS: BMI 31.4
[2023-06-16 14:58] LABS: Add Manual Diff / Slide Review NO; Basophils Absolute Auto 0 /uL (0-100); Basophils Percent Auto 1.5 % (0-2); Eosinophils Absolute Auto 100 /uL (0-450); Eosinophils Percent Auto 5.5 % (2-4); Hematocrit 25.8 % (41-53); Hemoglobin 8.1 g/dL (13.5-17.5); Lymphocytes Absolute Auto 600 /uL (1100-4500); Lymphocytes Percent Auto 24.7 % (25-40); Mean Corpuscular HGB Conc 31.5 % (30-36); Mean Corpuscular Volume 79.2 fL (80-100); Monocytes Absolute Auto 400 /uL (0-900); Monocytes Percent Auto 15.3 % (3-14); Neutrophils Absolute Auto 1300 /uL (1500-7000); Platelet Count 117 X10^3/uL (150-400); Red Blood Cell Count 3.26 X10^6/uL (4.5-5.9); Red Cell Distribution Width 18.6 % (11.6-14.8); White Blood Cell Count 2.4 X10^3/uL (4.5-11.0)
[2023-06-16 15:10] LABS: INR 1.5 (0.9-1.3); Prothrombin Time 17.4 SECONDS (9.4-12.5)
[2023-06-16 15:13] LABS: PTT Partial Thromboplastin Tim 33 SECONDS (25.1-36.5)
[2023-06-16 15:15] LABS: BUN Creatinine Ratio 32.5 (6-22); Blood Urea Nitrogen 25 mg/dL (9-20); Chloride 93 mmol/L (98-107); Estimated Glomerular Filt Rate > 60 mL/min (>60); Glucose 121 mg/dL (80-110); HEMOLYSIS < 15 (0-50); Potassium 3.2 mmol/L (3.4-5.1); Sodium 135 mmol/L (137-145)
[2023-06-16 15:21] LABS: Carbon Dioxide 35 mmol/L (22-32)
== END ==
PROVIDERS: PCP Internal Medicine; Referring Provider Orthopaedic Surgery; Visit Provider Orthopaedic Surgery
DX: Z01.812 Encounter for preprocedural laboratory examination (principal); N39.0 Urinary tract infection, site not specified; Z51.81 Encounter for therapeutic drug level monitoring
CPT/HCPCS: 36415; 80048; 85025; 85610; 85730

== ENCOUNTER → 2023-06-17 10:44 | Outpatient (CLI) | payer MEDICARE, OTHER, SELFPAY ==
[2023-01-17 02:34] VITALS: PULSE 75; RESP 37; O2SAT 94
[2023-05-15 23:55] VITALS: BMI 31.4
[2023-06-17 12:01] LABS: Appearance Urine UA CLEAR; Bilirubin Urine UA NEGATIVE (NEGATIVE); Color Urine UA YELLOW; Glucose Urine UA NEGATIVE (Negative); Ketones Urine UA NEGATIVE (NEGATIVE); Leukocyte Esterase Urine UA NEGATIVE (NEGATIVE); Nitrite Urine UA NEGATIVE (Negative); Occult Blood Urine UA NEGATIVE (Negative); Protein Urine UA NEGATIVE (Negative); Urobilinogen Urine UA 0.2 E.U./dL (0.2)
[2023-06-17 12:15] LABS: Bacteria Urine Occasional (0-1); RBC Urine 0-1/HPF (0-5/HPF); WBC Urine 0-1/HPF (0-5/HPF)
[2023-06-17 12:16] LABS: Culture Indicated Urine Cult Not Indicated; Squamous Epithelial Cell Urine 1-5 /HPF (0-5/HPF)
== END ==
PROVIDERS: PCP Internal Medicine; Referring Provider Orthopaedic Surgery; Visit Provider Orthopaedic Surgery
DX: Z01.812 Encounter for preprocedural laboratory examination (principal); N39.0 Urinary tract infection, site not specified; Z51.81 Encounter for therapeutic drug level monitoring
CPT/HCPCS: 81001

== ENCOUNTER 2023-07-02 01:43 | Emergency (ER) | payer MEDICARE, OTHER, SELFPAY ==
[2023-01-17 02:34] VITALS: PULSE 75; RESP 37; O2SAT 94
[2023-05-15 23:55] VITALS: BMI 31.4
[2023-07-02 01:45] VITALS: BP 118/77; PULSE 102; RESP 18; TEMP 36.5; O2SAT 95
--- NOTE | 2023-07-02 01:55 | ED.GENADULT ---
HPI - General Adult General Chief complaint: Abdominal Pain Stated complaint: LLQ abd pain Time Seen by Provider: 07/02/23 01:47 Source: patient Mode of arrival: EMS Limitations: no limitations History of Present Illness HPI narrative: Patient is an 82-year-old male. He arrives by EMS for evaluation of left lower quadrant abdominal pain and left lower back discomfort. He states this is the same pain that he has had for many months if not longer however this evening it just seemed to be worse than normal and he was having problems sleeping. He denies any urinary symptoms. He has had a bowel movement within the past 18 hours that he states actually made his discomfort worse. No fevers. He has not falling at home. No vomiting. Related Data Home Medications Medication Instructions Recorded Confirmed albuterol sulfate 90 mcg/actuation 2 puff INH PRN PRN Shortness Of 03/22/17 06/03/23 aerosol inhaler (Proventil HFA) Breath ##0 mesalamine 500 mg capsule,extended 1,000 mg PO BID ##0 03/24/17 06/03/23 release (Pentasa) calcium carbonate 500 mg-vitamin 3 tab PO DAILY ##0 03/31/17 06/03/23 D3 2.5 mcg (100 unit) chewable tablet ferrous sulfate 325 mg (65 mg 325 mg PO BID 05/18/18 06/03/23 iron) tablet finasteride 5 mg tablet 5 mg PO DAILY 05/18/18 06/03/23 folic acid 1 mg tablet 1 mg PO DAILY 05/18/18 06/03/23 loratadine 10 mg tablet 10 mg PO DAILY 05/18/18 06/03/23 nitroglycerin 0.4 mg sublingual 0.4 mg sublingual Q5-15M PRN Chest 05/18/18 06/03/23 tablet (Nitrostat) Pain simvastatin 40 mg tablet 20 mg PO BEDTIME 12/07/21 06/03/23 fluticasone propionate 50 1 spray intranasal PRN PRN allergy 02/07/22 06/03/23 mcg/actuation nasal symptoms spray,suspension acetaminophen 325 mg tablet 650 mg PO Q4H PRN Pain 04/24/22 06/03/23 alfuzosin 10 mg tablet,extended 10 mg PO DAILY 04/24/22 06/03/23 release 24 hr ascorbic acid (vitamin C) 500 mg 500 mg PO DAILY 04/24/22 06/03/23 tablet omeprazole 20 mg tablet,delayed 20 mg PO DAILY 04/24/22 06/03/23 release isosorbide mononitrate 60 mg 30 mg PO DAILY 01/13/23 06/03/23 tablet,extended release 24 hr aspirin 81 mg capsule 81 mg PO DAILY 05/01/23 06/03/23 magnesium oxide 500 mg capsule 500 mg PO BID 05/01/23 06/03/23 torsemide 100 mg tablet 100 mg PO DAILY PRN Weight Gain 05/01/23 06/03/23 Previous Rx's Medication Instructions Recorded tamsulosin 0.4 mg capsule 0.4 mg PO DAILY #90 caps 03/04/23 apixaban 5 mg tablet (Eliquis) 5 mg PO BID #180 tabs 03/20/23 potassium chloride 20 mEq 40 meq (2 x 20 mEq) PO TID #360 04/28/23 tablet,extended release tabs carvedilol 3.125 mg tablet 3.125 mg PO BID #180 tabs 06/23/23 Allergies Allergy/AdvReac Type Severity Reaction Status Date / Time iodine Allergy Severe Blotches Verified 06/03/23 14:16 all over my body ibuprofen Allergy Mild NOT GOOD Verified 06/03/23 14:16 FOR STOMACH BLEEDING Sulfa (Sulfonamide Allergy Mild BURNED A Verified 06/03/23 14:16 Antibiotics) HOLE THRU INTESTINES thallium-201 Allergy Mild BREAKS OUT Verified 06/03/23 14:16 IN BLOTCHES AND ITCHING terazosin Allergy Hypotension Verified 06/03/23 14:16 spironolactone AdvReac Verified 06/03/23 14:16 Review of Systems Constitutional Constitutional: Reports system reviewed and no additional complaints, except as documented Gastrointestinal Gastrointestinal: Reports system reviewed and no additional complaints, except as documented Genitourinary Genitourinary: Reports system reviewed and no additional complaints, except as documented Musculoskeletal Musculoskeletal: Reports system reviewed and no additional complaints, except as documented Patient History Medical History Acute diastolic CHF (congestive heart failure) Anemia Right inguinal hernia History of colonic polyps 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 Mixed hyperlipidemia Essential hypertension Chronic diastolic CHF (congestive heart failure), NYHA class 1 Chronic anticoagulation Chronic atrial fibrillation Vision disorder Fractures Positive PPD Mumps Measles Chicken pox Tinnitus Hearing loss History of urinary incontinence (~2018) Diverticular disease Crohn's disease Myocardial infarction Coronary artery disease Pulmonary hypertension Asthma Surgical History Hx of heart artery stent (~1994) Anesthesia H/O mitral valve replacement (~03/2017) Family History Mother Congestive heart failure Father Coronary artery disease Social History household members: spouse Smoking Status: Never smoker alcohol intake: former substance use type: does not use Type(s) of exercise: walking frequency: daily Smoking Status: Never smoker alcohol intake frequency: holidays/special occasions only Substance Use Type: does not use Exam Initial Vital Signs Initial Vital Signs: Vital Signs Temperature 97.7 F 07/02/23 01:45 Pulse Rate 102 H 07/02/23 01:45 Respiratory Rate 18 07/02/23 01:45 Blood Pressure 118/77 07/02/23 01:45 Pulse Oximetry 95 07/02/23 01:45 Oxygen Delivery Method Room Air 07/02/23 01:45 HENMT Head: normal to inspection and normocephalic GI Inspection: normal to inspection and non-distended Palpation: soft, No firm, No guarding and tender (Left lower quadrant) Skin General: no rashes or lesions noted Extrem General: normal to inspection Course Orders Ordered: ED Orders 07/02/23 02:05 Complete Blood Count AUTO DIFF Stat Comprehensive Metabolic Panel Stat Lipase Stat 07/02/23 02:35 CT abdomen pelvis wo con Stat Discontinued Medications Morphine Sulfate (Morphine 2 Mg/Ml Inj) 2 mg IV NOW ONE Stop: 07/02/23 01:57 Last Admin: 07/02/23 02:09 Dose: 2 mg Documented By: HNG Vital Signs Vital signs: Vital Signs - 8 hr 07/02/23 01:45 Temperature 97.7 F Pulse Rate 102 H Respiratory Rate 18 Blood Pressure 118/77 Pulse Oximetry 95 Oxygen Delivery Method Room Air Medical Decision Making Medical Records Medical records reviewed: Yes I reviewed the patient's medical records. Lab Data Lab results reviewed: Yes I reviewed the patient's lab results. 07/02/23 02:05 12/27/23 02:05 Labs: Lab Results 07/02/23 Range/Units 02:05 WBC 4.6 (4.5-11.0) X10^3/uL RBC 3.26 L (4.5-5.9) X10^6/uL Hgb 8.3 L (13.5-17.5) g/dL Hct 25.8 L (41-53) % MCV 79.1 L (80-100) fL MCH 25.3 L (26-34) PG MCHC 32.1 (30-36) % RDW 17.9 H (11.6-14.8) % Plt Count 130 L (150-400) X10^3/uL Neut % (Auto) 67.8 (50-75) % Lymph % (Auto) 13.7 L (25-40) % [place] % (Auto) 14.8 H (3-14) % Eos % (Auto) 2.4 (2-4) % Baso % (Auto) 1.3 (0-2) % Neut # (Auto) 3100 (0595-9449) /uL Lymph # (Auto) 600 L (6087-2737) /uL [place] # (Auto) 700 (0-900) /uL Eos # (Auto) 100 (0-450) /uL Baso # (Auto) 100 (0-100) /uL Sodium 135 L (137-145) mmol/L Potassium 3.0 L (3.4-5.1) mmol/L Chloride 91 L (98-107) mmol/L Carbon Dioxide 37 H (22-32) mmol/L BUN 30 H (9-20) mg/dL Creatinine 0.75 (0.66-1.25) mg/dL Estimated GFR > 60 (>60) mL/min BUN/Creatinine Ratio 40.0 H (6-22) Glucose 139 H (80-110) mg/dL Calcium 9.1 (8.4-10.2) mg/dL Total Bilirubin 0.8 (0.2-1.3) mg/dL AST 35 (17-59) IU/L ALT 22 (<50) IU/L Alkaline Phosphatase 72 (38-126) U/L Total Protein 6.4 (6.3-8.2) g/dL Albumin 3.5 (3.5-5.0) g/dL Globulin 2.9 (1.7-4.1) g/dL Albumin/Globulin Ratio 1.2 (1.0-2.8) Lipase 69 (23-300) U/L Imaging Data CT scan - abdomen/pelvis: Radiologist's Impression: Acute or subacute L2 compression fracture new compared to study 6 weeks ago Increase pelvic wall lower extremity edema No acute intra-abdominal or intrapelvic abnormality Chronic findings include cardiomegaly, vascular calcifications, cholelithiasis, possible rectal fecal impaction MDM Narrative Medical decision making narrative: Patient did have quite a bit of tenderness to his left lower quadrant. It does seem to have been going on for quite some time but was worse this evening. CT scan shows what appears to be a new L2 compression fracture over the past 6 weeks. The patient is not having any tenderness over this area. He denies any recent falls. He does have fecal impaction which according to my prior notes and prior CT scans is not necessarily new. He states he has had a bowel movement within the past 18 hours. No other acute findings noted. No indication for antibiotics. No indication for surgical consultation. No indication for admission to the hospital. I discussed this with the patient. Will discharge patient home with return precautions. He expressed understanding and agreement. Discharge Plan Departure Patient Disposition: Home Clinical Impression: Abdominal pain Instructions: DI for Abdominal Pain-Adult Activity Restrictions/Additional Instructions: Recommend that you continue to take all of your medications as directed. If you are not already on a laxative recommend a laxative on a daily basis to help with what appears to be quite a bit of stool in your colon and rectum. Contact your primary care doctor for follow-up. Return to the emergency department for new symptoms. Prescriptions: No Action albuterol sulfate [Proventil HFA] 90 MCG/PUFF HFA aerosol inhaler 2 puff INH PRN PRN (Reason: Shortness Of Breath) Qty: 0 Patient Comments: no longer taking mesalamine [Pentasa] 500 MG capsule, extended release 1,000 mg PO BID Qty: 0 Patient Comments: not sure if he is taking calcium carbonate-vitamin D3 500 mg-2.5 mcg (100 unit) Tablet,Chewable 3 tab PO DAILY Qty: 0 Rx Instructions: taking only for heartburn tamsulosin 0.4 mg capsule 0.4 mg PO DAILY Qty: 90 3RF potassium chloride 20 mEq tablet extended release 40 meq PO TID Qty: 360 1RF carvedilol 3.125 mg tablet 3.125 mg PO BID Qty: 180 3RF Rx Instructions: must administer with a meal/food simvastatin 40 mg tablet 20 mg PO BEDTIME fluticasone propionate 50 mcg/actuation spray,suspension 1 spray intranasal PRN PRN (Reason: allergy symptoms) Rx Instructions: only as needed acetaminophen 325 mg tablet 650 mg PO Q4H PRN (Reason: Pain) alfuzosin 10 mg tablet extended release 24 hr 10 mg PO DAILY Rx Instructions: pt does not recognize administer after the same meal each day ascorbic acid (vitamin C) 500 mg tablet 500 mg PO DAILY Rx Instructions: pt states that he no longer takes this omeprazole 20 mg tablet,delayed release (DR/EC) 20 mg PO DAILY Patient Comments: pt does not recognize this med Eliquis 5 mg tablet 5 mg PO BID Qty: 180 3RF Rx Instructions: pt does not recognize ferrous sulfate 325 mg (65 mg iron) Tablet 325 mg PO BID Rx Instructions: no longer taking this nitroglycerin [Nitrostat] 0.4 mg Tablet, Sublingual 0.4 mg SUBLINGUAL Q5-15M PRN (Reason: Chest Pain) Patient Comments: use it for chest pain as needed, haven't needed it in quite a while folic acid 1 mg Tablet 1 mg PO DAILY Patient Comments: no longer taking finasteride 5 mg Tablet 5 mg PO DAILY Patient Comments: not sure if he is taking loratadine 10 mg Tablet 10 mg PO DAILY Patient Comments: hasnt taken any in awhile torsemide 100 mg Tablet 100 mg PO DAILY PRN (Reason: Weight Gain) magnesium oxide 500 mg capsule 500 mg PO BID Rx Instructions: unsure if he is taking it aspirin 81 mg Capsule 81 mg PO DAILY isosorbide mononitrate 60 mg Tablet Extended Release 24 Hr 30 mg PO DAILY Rx Instructions: unsure if he is taking Referrals: Barrera Roth MD [Primary Care Provider] - Stand Alone Forms: Patient Portal/API
[2023-07-02] MEDS: MORPHINE 2 MG/ML INJ IV (02:09)
[2023-07-02 02:18] LABS: Add Manual Diff / Slide Review NO; Basophils Absolute Auto 100 /uL (0-100); Basophils Percent Auto 1.3 % (0-2); Eosinophils Absolute Auto 100 /uL (0-450); Eosinophils Percent Auto 2.4 % (2-4); Hematocrit 25.8 % (41-53); Hemoglobin 8.3 g/dL (13.5-17.5); Lymphocytes Absolute Auto 600 /uL (1100-4500); Lymphocytes Percent Auto 13.7 % (25-40); Mean Corpuscular HGB Conc 32.1 % (30-36); Mean Corpuscular Hemoglobin 25.3 PG (26-34); Mean Corpuscular Volume 79.1 fL (80-100); Monocytes Absolute Auto 700 /uL (0-900); Monocytes Percent Auto 14.8 % (3-14); Neutrophils Absolute Auto 3100 /uL (1500-7000); Neutrophils Percent Auto 67.8 % (50-75); Platelet Count 130 X10^3/uL (150-400); Red Blood Cell Count 3.26 X10^6/uL (4.5-5.9); Red Cell Distribution Width 17.9 % (11.6-14.8); White Blood Cell Count 4.6 X10^3/uL (4.5-11.0)
[2023-07-02 02:27] LABS: Alanine Aminotransferase 22 IU/L (<50); Albumin 3.5 g/dL (3.5-5.0); Albumin Globulin Ratio 1.2 (1.0-2.8); Alkaline Phosphatase 72 U/L (38-126); Aspartate Aminotransferase 35 IU/L (17-59); Bilirubin Total 0.8 mg/dL (0.2-1.3); Blood Urea Nitrogen 30 mg/dL (9-20); Calcium 9.1 mg/dL (8.4-10.2); Carbon Dioxide 37 mmol/L (22-32); Chloride 91 mmol/L (98-107); Estimated Glomerular Filt Rate > 60 mL/min (>60); Globulin 2.9 g/dL (1.7-4.1); Glucose 139 mg/dL (80-110); HEMOLYSIS < 15 (0-50); Lipase 69 U/L (23-300); Sodium 135 mmol/L (137-145); Total Protein 6.4 g/dL (6.3-8.2)
--- NOTE | 2023-07-02 02:35 | DI.CT.S_ITS ---
PROCEDURE: CT ABDOMEN PELVIS WO CON INDICATIONS: LLQ abd pain and L lower back pain TECHNIQUE: Axial sections were acquired from the lung bases to the pubic symphysis. Coronal and sagittal reformats were performed. For radiation dose reduction, the following was used: automated exposure control, adjustment of mA and/or kV according to patient size. COMPARISON: [facility], CT, CT LUMBAR SPINE WO CON, 03/09/2023, 3:05. [facility], CT, CT ABDOMEN PELVIS WO CON, 05/21/2023, 16:16. FINDINGS: Image quality: Diagnostic. Lower Chest: Moderate to severe cardiomegaly. Severe coronary artery atherosclerosis. No suspicious pulmonary nodules. URINARY: Right Kidney: No stones or hydronephrosis. Right Ureter: No hydroureter. Left Kidney: No stones or hydronephrosis. Left Ureter: No hydroureter. Bladder: Normal wall thickness. No stones. ABDOMEN: Liver: No contour-deforming solid mass. Gallbladder: There are gallstones. Gallbladder is mildly distended. No gallbladder wall thickening or pericholecystic fluid. Biliary ducts: No biliary dilation. Pancreas: No ductal dilation. Spleen: Size is within normal limits. Adrenal Glands: No adrenal nodules. Stomach and Bowel: Normal colonic caliber, without significant wall thickening. There is a large amount of stool in colon. There is a large stool ball in rectum suggesting fecal impaction. Peritoneum: No abnormal intraperitoneal fluid. No free air. Ventral Wall: No hernia. Diffuse body wall edema, increased. Abdominal Nodes: No enlarged retroperitoneal or mesenteric lymph nodes. Vessels: Aorta and inferior vena cava are normal in size. Moderate to severe atherosclerotic calcifications. PELVIS: Pelvic Organs: Unremarkable. Pelvic Nodes: Unremarkable. Miscellaneous: No inguinal hernias are seen. Bones: There are moderate compression fractures of L2 and L3. L3 compression fracture was present on 05/21/2023 and appears unchanged. The L2 compression fracture is new. Osteopenia. IMPRESSION: 1. A large amount of stool in colon. Suspect fecal impaction in rectum. 2. Moderate compression fractures of L2 and L3. L2 compression fracture is new and likely acute or subacute. L3 compression fracture was present on 05/21/2023 and appears unchanged. 3. Cholelithiasis. 4. No obstructing stones or hydronephrosis. 5. Cardiomegaly. 6. Increased body wall edema likely secondary to anasarca.. No significant discrepancy with the night time [facility]anny radiology preliminary report. Dictated by: Nicky Muniz M.D. on 07/02/2023 at 7:44 Approved by: Nicky Muniz M.D. on 07/02/2023 at 9:43
[2023-07-02 03:09] VITALS: PULSE 101; O2SAT 92
[2023-07-02 03:30] VITALS: BP 110/71; PULSE 104; O2SAT 92
[2023-07-02 04:00] VITALS: BP 111/69; PULSE 100; RESP 18; O2SAT 93
== END 2023-07-02 04:18 | disposition home or self-care (01) ==
PROVIDERS: Emergency Provider Emergency Medicine; PCP Internal Medicine
DX: R10.32 Left lower quadrant pain (principal); M54.50 Low back pain, unspecified
CPT/HCPCS: 36415; 74176; 80053; 83690; 85025; 96374; 99284; J2270

== ENCOUNTER 2023-07-02 21:58 | Emergency (ER) | payer MEDICARE, OTHER, SELFPAY ==
[2023-01-17 02:34] VITALS: PULSE 75; RESP 37; O2SAT 94
[2023-05-15 23:55] VITALS: BMI 31.4
[2023-07-02 22:00] VITALS: PULSE 101; O2SAT 93
[2023-07-02 22:01] VITALS: BP 109/65; PULSE 101; O2SAT 93
[2023-07-02 22:03] VITALS: BP 109/65; PULSE 109; RESP 22; TEMP 36.9; O2SAT 93; BMI 27.4
--- NOTE | 2023-07-02 22:23 | ED.GENADULT ---
HPI - General Adult General Chief complaint: Weakness Stated complaint: Gen weakness Time Seen by Provider: 07/02/23 22:10 Source: patient and EMS Mode of arrival: EMS Related Data Home Medications Medication Instructions Recorded Confirmed albuterol sulfate 90 mcg/actuation 2 puff INH PRN PRN Shortness Of 03/22/17 06/03/23 aerosol inhaler (Proventil HFA) Breath ##0 mesalamine 500 mg capsule,extended 1,000 mg PO BID ##0 03/24/17 06/03/23 release (Pentasa) calcium carbonate 500 mg-vitamin 3 tab PO DAILY ##0 03/31/17 06/03/23 D3 2.5 mcg (100 unit) chewable tablet ferrous sulfate 325 mg (65 mg 325 mg PO BID 05/18/18 06/03/23 iron) tablet finasteride 5 mg tablet 5 mg PO DAILY 05/18/18 06/03/23 folic acid 1 mg tablet 1 mg PO DAILY 05/18/18 06/03/23 loratadine 10 mg tablet 10 mg PO DAILY 05/18/18 06/03/23 nitroglycerin 0.4 mg sublingual 0.4 mg sublingual Q5-15M PRN Chest 05/18/18 06/03/23 tablet (Nitrostat) Pain simvastatin 40 mg tablet 20 mg PO BEDTIME 12/07/21 06/03/23 fluticasone propionate 50 1 spray intranasal PRN PRN allergy 02/07/22 06/03/23 mcg/actuation nasal symptoms spray,suspension acetaminophen 325 mg tablet 650 mg PO Q4H PRN Pain 04/24/22 06/03/23 alfuzosin 10 mg tablet,extended 10 mg PO DAILY 04/24/22 06/03/23 release 24 hr ascorbic acid (vitamin C) 500 mg 500 mg PO DAILY 04/24/22 06/03/23 tablet omeprazole 20 mg tablet,delayed 20 mg PO DAILY 04/24/22 06/03/23 release isosorbide mononitrate 60 mg 30 mg PO DAILY 01/13/23 06/03/23 tablet,extended release 24 hr aspirin 81 mg capsule 81 mg PO DAILY 05/01/23 06/03/23 magnesium oxide 500 mg capsule 500 mg PO BID 05/01/23 06/03/23 torsemide 100 mg tablet 100 mg PO DAILY PRN Weight Gain 05/01/23 06/03/23 Previous Rx's Medication Instructions Recorded tamsulosin 0.4 mg capsule 0.4 mg PO DAILY #90 caps 03/04/23 apixaban 5 mg tablet (Eliquis) 5 mg PO BID #180 tabs 03/20/23 potassium chloride 20 mEq 40 meq (2 x 20 mEq) PO TID #360 04/28/23 tablet,extended release tabs carvedilol 3.125 mg tablet 3.125 mg PO BID #180 tabs 06/23/23 nitrofurantoin 100 mg PO Q12H 5 days #10 caps 07/03/23 monohydrate/macrocrystals 100 mg capsule (Macrobid) Allergies Allergy/AdvReac Type Severity Reaction Status Date / Time iodine Allergy Severe Blotches Verified 06/03/23 14:16 all over my body ibuprofen Allergy Mild NOT GOOD Verified 06/03/23 14:16 FOR STOMACH BLEEDING Sulfa (Sulfonamide Allergy Mild BURNED A Verified 06/03/23 14:16 Antibiotics) HOLE THRU INTESTINES thallium-201 Allergy Mild BREAKS OUT Verified 06/03/23 14:16 IN BLOTCHES AND ITCHING terazosin Allergy Hypotension Verified 06/03/23 14:16 spironolactone AdvReac Verified 06/03/23 14:16 Patient History Medical History Acute diastolic CHF (congestive heart failure) Anemia Right inguinal hernia History of colonic polyps 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 Mixed hyperlipidemia Essential hypertension Chronic diastolic CHF (congestive heart failure), NYHA class 1 Chronic anticoagulation Chronic atrial fibrillation Vision disorder Fractures Positive PPD Mumps Measles Chicken pox Tinnitus Hearing loss History of urinary incontinence (~2018) Diverticular disease Crohn's disease Myocardial infarction Coronary artery disease Pulmonary hypertension Asthma Surgical History Hx of heart artery stent (~1994) Anesthesia H/O mitral valve replacement (~03/2017) Family History Mother Congestive heart failure Father Coronary artery disease Social History household members: spouse Smoking Status: Never smoker alcohol intake: former substance use type: does not use Type(s) of exercise: walking frequency: daily Smoking Status: Never smoker alcohol intake frequency: holidays/special occasions only Substance Use Type: does not use Exam Initial Vital Signs Initial Vital Signs: Vital Signs Pulse Rate 101 H 07/02/23 22:00 Pulse Oximetry 93 07/02/23 22:00 Oxygen Delivery Method Room Air 07/02/23 22:00 Course Orders Ordered: ED Orders 07/02/23 22:24 XR forearm RT 2V Stat 07/02/23 22:45 Urine Culture Stat Urine Microscopic Stat Discontinued Medications Nitrofurantoin Macrocrystals (Nitrofurantoin Er 100 Mg Capsule) 100 mg PO NOW ONE Stop: 07/03/23 00:14 Last Admin: 07/03/23 00:18 Dose: 100 mg Documented By: JUAN DANIEL Sodium Biphosphate/Sodium Phosphate (Fleets Enema) 1 each NM NOW ONE Stop: 07/02/23 22:25 Last Admin: 07/02/23 22:52 Dose: 1 each Documented By: REY Vital Signs Vital signs: Vital Signs - 8 hr 07/02/23 22:00 07/02/23 22:01 07/02/23 22:01 Temperature Pulse Rate 101 H 101 H Respiratory Rate Blood Pressure 109/65 Pulse Oximetry 93 93 Oxygen Delivery Method Room Air Room Air 07/02/23 22:03 07/02/23 22:30 07/02/23 23:00 Temperature 98.4 F Pulse Rate 109 H 97 H 101 H Respiratory Rate 22 Blood Pressure 109/65 112/61 Pulse Oximetry 93 93 90 L Oxygen Delivery Method Room Air Room Air Medical Decision Making Lab Data Lab results reviewed: Yes I reviewed the patient's lab results. Labs: Lab Results 07/02/23 Range/Units 22:45 Urine RBC None seen (0-5/HPF) Urine WBC 5-10/hpf H (0-5/HPF) Ur Squamous Epith Cells 0-1 /hpf (0-5/HPF) Urine Bacteria Many (>30) H (None) Ur Culture Indicated? Specimen cultured Urine Dip Bedside Urine Glucose Negative Bedside Urine Bilirubin - Negative Bedside Urine Ketone - Negative Urine Specific [place] 1.01 Bedside Urine Occult Blood - Negative Bedside Urine pH 6.5 Bedside Urine Protein - Negative Bedside Urine Urobilinogen - Negative Bedside Urine Nitrite - Negative Bedside Urine Leukocytes + 70 Esterase Point of care testing: Urine Dip Bedside Urine Glucose Negative Bedside Urine Bilirubin - Negative Bedside Urine Ketone - Negative Urine Specific [place] 1.01 Bedside Urine Occult Blood - Negative Bedside Urine pH 6.5 Bedside Urine Protein - Negative Bedside Urine Urobilinogen - Negative Bedside Urine Nitrite - Negative Bedside Urine Leukocytes + 70 Esterase Imaging Data Extremity x-ray #1: Radiologist's Impression: PROCEDURE: XR FOREARM RT 2V INDICATIONS: Arm pain TECHNIQUE: 2 views of the forearm were acquired. COMPARISON: None. FINDINGS: Bones: Evaluation is somewhat limited due to suboptimal positioning due to patient factors. No fractures or dislocations. No suspicious bony lesions. Soft tissues: No suspicious soft tissue calcifications or masses. Vascular calcifications present IMPRESSION: Evaluation is mildly limited due to suboptimal positioning due to patient factors. No definite radiographic abnormality visualized. If there is clinical concern for occult fracture, recommend repeat radiographs in 7-10 days or cross-sectional imaging such as CT. Discharge Plan Departure Patient Disposition: Home Clinical Impression: Urinary tract infection, Constipation Instructions: DI for Urinary Tract Infection (UTI) Activity Restrictions/Additional Instructions: A prescription for antibiotics was sent to the [facility] pharmacy. Please pick it up and start taking it as directed. I also recommend that you continue with pursuing a good bowel regimen to include either stool softeners or laxatives as I suspect based on your CT scan from your last visit here in the emergency department that constipation is causing your abdominal discomfort. Contact your primary doctor for follow-up. Prescriptions: New nitrofurantoin monohyd/m-cryst [Macrobid] 100 mg capsule 100 mg PO Q12H 5 Days Qty: 10 0RF Rx Instructions: must administer with a meal/food No Action albuterol sulfate [Proventil HFA] 90 MCG/PUFF HFA aerosol inhaler 2 puff INH PRN PRN (Reason: Shortness Of Breath) Qty: 0 Patient Comments: no longer taking mesalamine [Pentasa] 500 MG capsule, extended release 1,000 mg PO BID Qty: 0 Patient Comments: not sure if he is taking calcium carbonate-vitamin D3 500 mg-2.5 mcg (100 unit) Tablet,Chewable 3 tab PO DAILY Qty: 0 Rx Instructions: taking only for heartburn tamsulosin 0.4 mg capsule 0.4 mg PO DAILY Qty: 90 3RF potassium chloride 20 mEq tablet extended release 40 meq PO TID Qty: 360 1RF carvedilol 3.125 mg tablet 3.125 mg PO BID Qty: 180 3RF Rx Instructions: must administer with a meal/food simvastatin 40 mg tablet 20 mg PO BEDTIME fluticasone propionate 50 mcg/actuation spray,suspension 1 spray intranasal PRN PRN (Reason: allergy symptoms) Rx Instructions: only as needed acetaminophen 325 mg tablet 650 mg PO Q4H PRN (Reason: Pain) alfuzosin 10 mg tablet extended release 24 hr 10 mg PO DAILY Rx Instructions: pt does not recognize administer after the same meal each day ascorbic acid (vitamin C) 500 mg tablet 500 mg PO DAILY Rx Instructions: pt states that he no longer takes this omeprazole 20 mg tablet,delayed release (DR/EC) 20 mg PO DAILY Patient Comments: pt does not recognize this med Eliquis 5 mg tablet 5 mg PO BID Qty: 180 3RF Rx Instructions: pt does not recognize ferrous sulfate 325 mg (65 mg iron) Tablet 325 mg PO BID Rx Instructions: no longer taking this nitroglycerin [Nitrostat] 0.4 mg Tablet, Sublingual 0.4 mg SUBLINGUAL Q5-15M PRN (Reason: Chest Pain) Patient Comments: use it for chest pain as needed, haven't needed it in quite a while folic acid 1 mg Tablet 1 mg PO DAILY Patient Comments: no longer taking finasteride 5 mg Tablet 5 mg PO DAILY Patient Comments: not sure if he is taking loratadine 10 mg Tablet 10 mg PO DAILY Patient Comments: hasnt taken any in awhile torsemide 100 mg Tablet 100 mg PO DAILY PRN (Reason: Weight Gain) magnesium oxide 500 mg capsule 500 mg PO BID Rx Instructions: unsure if he is taking it aspirin 81 mg Capsule 81 mg PO DAILY isosorbide mononitrate 60 mg Tablet Extended Release 24 Hr 30 mg PO DAILY Rx Instructions: unsure if he is taking Referrals: Barrera Roth MD [Primary Care Provider] - Stand Alone Forms: Patient Portal/API
[2023-07-02 22:30] VITALS: PULSE 97; O2SAT 93
[2023-07-02] MEDS: FLEETS ENEMA 1 EACH PR (22:52)
[2023-07-02 23:00] VITALS: BP 112/61; PULSE 101; O2SAT 90
[2023-07-02 23:04] LABS: Bacteria Urine Many (>30); RBC Urine None Seen (0-5/HPF); Squamous Epithelial Cell Urine 0-1 /HPF (0-5/HPF); WBC Urine 5-10/HPF (0-5/HPF)
[2023-07-02 23:05] LABS: Culture Indicated Urine Specimen Cultured
[2023-07-03] MEDS: NITROFURANTOIN ER 100 MG CAPSULE PO (00:18)
--- NOTE | 2023-07-03 00:19 | PC.NURSE ---
no difficulty swallowing his oral medication.
--- NOTE | 2023-07-03 00:41 | PC.NURSE ---
I noticed a small formed brown BM,approx.3 inches,in the bedpan I emptied after MANJU Rosenbaum gave him an enema.
[2023-07-03 00:56] VITALS: BP 102/65; PULSE 88; RESP 18; O2SAT 97
== END 2023-07-03 01:02 | disposition home or self-care (01) ==
PROVIDERS: Emergency Provider Emergency Medicine; PCP Internal Medicine
DX: N39.0 Urinary tract infection, site not specified (principal); K59.00 Constipation, unspecified; M79.631 Pain in right forearm; R32 Unspecified urinary incontinence; R10.32 Left lower quadrant pain; M54.50 Low back pain, unspecified
CPT/HCPCS: 36415; 73090; 74176; 80053; 81003; 81015; 83690; 85025; 87077; 87086; 87186; 96374; 99284; J2270

== ENCOUNTER 2023-07-10 02:52 | Emergency (ER) | payer MEDICARE, OTHER, SELFPAY ==
[2023-01-17 02:34] VITALS: PULSE 75; RESP 37; O2SAT 94
[2023-05-15 23:55] VITALS: BMI 31.4
[2023-07-10 02:53] VITALS: BP 129/76; PULSE 102; RESP 16; TEMP 36.7; O2SAT 96; BMI 27.4
--- NOTE | 2023-07-10 03:55 | ED_ITS ---
HPI - Back Pain/Injury General Chief Complaint: Back Pain/Injury Stated Complaint: back pain Time Seen by Provider: 07/10/23 02:56 Source: patient and EMS History of Present Illness HPI Narrative: 82-year-old gentleman who was treated for a urinary tract infection last week with nitrofurantoin has a history of chronic back pain, L2 compression fracture that is occurred sometime within the last 3 months, chronic constipation and a history of chronic inflammatory bowel disease currently in remission and continues on oral mesalamine, BPH, hyperlipidemia, coronary artery disease, congestive heart failure, presents again today with complaints of chronic back pain, worsening even more than visit on 07/02. He describes no new trauma, no fevers, has chronic urinary incontinence and uses a condom catheter. Does not feel that he is retaining urine and is not complaining of any bladder tenderness. He states that he is stooling and does not report significant constipation. Related Data Home Medications Medication Instructions Recorded Confirmed albuterol sulfate 90 mcg/actuation 2 puff INH PRN PRN Shortness Of 03/22/17 06/03/23 aerosol inhaler (Proventil HFA) Breath ##0 mesalamine 500 mg capsule,extended 1,000 mg PO BID ##0 03/24/17 06/03/23 release (Pentasa) calcium carbonate 500 mg-vitamin 3 tab PO DAILY ##0 03/31/17 06/03/23 D3 2.5 mcg (100 unit) chewable tablet ferrous sulfate 325 mg (65 mg 325 mg PO BID 05/18/18 06/03/23 iron) tablet finasteride 5 mg tablet 5 mg PO DAILY 05/18/18 06/03/23 folic acid 1 mg tablet 1 mg PO DAILY 05/18/18 06/03/23 loratadine 10 mg tablet 10 mg PO DAILY 05/18/18 06/03/23 nitroglycerin 0.4 mg sublingual 0.4 mg sublingual Q5-15M PRN Chest 05/18/18 06/03/23 tablet (Nitrostat) Pain simvastatin 40 mg tablet 20 mg PO BEDTIME 12/07/21 06/03/23 fluticasone propionate 50 1 spray intranasal PRN PRN allergy 02/07/22 06/03/23 mcg/actuation nasal symptoms spray,suspension acetaminophen 325 mg tablet 650 mg PO Q4H PRN Pain 04/24/22 06/03/23 alfuzosin 10 mg tablet,extended 10 mg PO DAILY 04/24/22 06/03/23 release 24 hr ascorbic acid (vitamin C) 500 mg 500 mg PO DAILY 04/24/22 06/03/23 tablet omeprazole 20 mg tablet,delayed 20 mg PO DAILY 04/24/22 06/03/23 release isosorbide mononitrate 60 mg 30 mg PO DAILY 01/13/23 06/03/23 tablet,extended release 24 hr aspirin 81 mg capsule 81 mg PO DAILY 05/01/23 06/03/23 magnesium oxide 500 mg capsule 500 mg PO BID 05/01/23 06/03/23 torsemide 100 mg tablet 100 mg PO DAILY PRN Weight Gain 05/01/23 06/03/23 Previous Rx's Medication Instructions Recorded tamsulosin 0.4 mg capsule 0.4 mg PO DAILY #90 caps 03/04/23 apixaban 5 mg tablet (Eliquis) 5 mg PO BID #180 tabs 03/20/23 potassium chloride 20 mEq 40 meq (2 x 20 mEq) PO TID #360 04/28/23 tablet,extended release tabs carvedilol 3.125 mg tablet 3.125 mg PO BID #180 tabs 06/23/23 lidocaine 5 % topical patch 1 patch topical DAILY #30 ea 07/10/23 Allergies Allergy/AdvReac Type Severity Reaction Status Date / Time iodine Allergy Severe Blotches Verified 06/03/23 14:16 all over my body ibuprofen Allergy Mild NOT GOOD Verified 06/03/23 14:16 FOR STOMACH BLEEDING Sulfa (Sulfonamide Allergy Mild BURNED A Verified 06/03/23 14:16 Antibiotics) HOLE THRU INTESTINES thallium-201 Allergy Mild BREAKS OUT Verified 06/03/23 14:16 IN BLOTCHES AND ITCHING terazosin Allergy Hypotension Verified 06/03/23 14:16 spironolactone AdvReac Verified 06/03/23 14:16 Patient History Medical History Acute diastolic CHF (congestive heart failure) Anemia Right inguinal hernia History of colonic polyps 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 Mixed hyperlipidemia Essential hypertension Chronic diastolic CHF (congestive heart failure), NYHA class 1 Chronic anticoagulation Chronic atrial fibrillation Vision disorder Fractures Positive PPD Mumps Measles Chicken pox Tinnitus Hearing loss History of urinary incontinence (~2018) Diverticular disease Crohn's disease Myocardial infarction Coronary artery disease Pulmonary hypertension Asthma Surgical History Hx of heart artery stent (~1994) Anesthesia H/O mitral valve replacement (~03/2017) Family History Mother Congestive heart failure Father Coronary artery disease Social History household members: spouse Smoking Status: Never smoker alcohol intake: former substance use type: does not use Type(s) of exercise: walking frequency: daily Smoking Status: Never smoker alcohol intake frequency: holidays/special occasions only Substance Use Type: does not use Exam Initial Vital Signs Initial Vital Signs: Vital Signs Temperature 98.1 F 07/10/23 02:53 Pulse Rate 102 H 07/10/23 02:53 Respiratory Rate 16 07/10/23 02:53 Blood Pressure 129/76 07/10/23 02:53 Pulse Oximetry 96 07/10/23 02:53 Oxygen Delivery Method Room Air 07/10/23 02:53 General: Frail and chronically ill appearing, in no acute distress. Able to give a complete and coherent history. HEENT: Moist mucous membranes, normal sclera with reactive pupils, Respiratory: Lungs are clear to auscultation, no wheezing no rales no rhonchi. Full and symmetrical air movement Cardiac: Regular rate and rhythm no murmurs no bruits Abdomen: Soft, nontender, good bowel tones, no flank pain. Rectal exam indicates no stool in the vault Spine, he is tender over the L2 area without any redness, erythema of the is abscess. Skin: Warm and dry, no rashes Neurologic: Grossly neurologically intact with no obvious asymmetries or abnormalities Extremities: No trauma, well perfused Psych: Cooperative, appropriate insight and affect Course Vital Signs Vital signs: Vital Signs - 8 hr 07/10/23 02:53 Temperature 98.1 F Pulse Rate 102 H Respiratory Rate 16 Blood Pressure 129/76 Pulse Oximetry 96 Oxygen Delivery Method Room Air MDM - Back Pain/Injury MDM Narrative Medical decision making narrative: CC: Low back pain Complicating co-morbidities: Chronic low back pain, cognitive dysfunction, and daughter help with medication management Data collected from: patient Social determinants of health that may influence the patients condition: Cognitive dysfunction, lives at home Medical records reviewed: ER notes, 2 visits from July 02 for abdominal pain/low back pain/constipation are reviewed Differential considered: Compression fracture, abdominal mass, urinary retention, urinary tract infection, constipation Exam documented above, pertinent findings include: Chronically ill-appearing 82-year-old gentleman. No significant abdominal tenderness to palpation. No stool in the rectal vault. No suprapubic tenderness. He does have some mild tenderness over the L2 area of his known compression fracture. Condom catheter is in place with clear urine noted Lab Test results independently reviewed as above. Pertinent findings: Urine sample shows no evidence of urinary tract infection and is not sent for culture Imaging studies independently reviewed: Abdominal x-rays do suggest a significant amount of stool throughout the colon, L2 fracture is again redemonstrated and does not appear worse than it was on the . Given the inc reasing pain I suspect that it is relatively new and may have precipitated the pain for which he presented with on the . Treatments: Patient is given an IM dose of Toradol. Apparently ibuprofen causes problems for his stomach and at 1 point he had been anticoagulated and told to avoid nonsteroidals. He is no longer anticoagulated. He has tried Tylenol that only sparingly any finds that it does help slightly when he takes it. He had moderate relief with the Toradol given Discussion: 82-year-old gentleman presents with severe back pain. As we were discussing his L2 compression fracture he does note that he had some type of fall sometime ?over the holiday?. I suspect that was the inciting events that led to the L2 compression fracture. Today he is not showing any sign of bladder infection. He does have quite a bit of stool through his colon and I suspect he has a moderate ileus secondary to pain from his O2 fracture. X-rays today do not show worsening fracture or any retropulsion. We reviewed healing expected with a new compression fracture. He is not interested in any type of narcotic intervention at this point which is probably the best option given his ileus and already tenuous cognitive and mobility status. I did suggest that he use MiraLax daily which he does have available at home. We talked about the use of Tylenol. I placed a lidocaine patch over his L2 area and if that is helpful I have given him a written prescription for the lidocaine patches that he can have filled. At this point he is safe for discharge Discharge Plan Departure Patient Disposition: Home Clinical Impression: Adynamic ileus Closed compression fracture of L2 vertebra Qualifiers: Encounter type: subsequent encounter Fracture healing: with routine healing Qualified Code(s): S32.020D - Wedge compression fracture of second lumbar vertebra, subsequent encounter for fracture with routine healing Instructions: DI for Vertebral Fracture Activity Restrictions/Additional Instructions: Thank you for coming in tonight You had mentioned a fall sometime over the hol. I suspect with this fall you suffered a new compression fracture at L2. We did notice this with your visit on the . With your continued pain I suspect that that fracture was in fact the cause for your pain then and is causing continued symptoms now. Compression fractures are regular bone fractures and do take at least 6 weeks for the pain to significantly resolve. It is important that you continue to use your walker to help with stability. I have placed a lidocaine patch over the area while you are in the emergency department. If this is helpful with your pain you can have that prescription filled. We talked about using narcotics and you have declined to do so which I think is probably a good idea. Please use Tylenol as needed. You may find that ice and heat to the area are also helpful. When you are hurting so much from a new compression fracture, your guts and colon tend to slowed down significantly. This causes increasing abdominal pain. I would recommend that you use MiraLax daily and if you had not had a bowel movement by that evening, using a 2nd dose in the evening. Keeping your bowels moving will help significantly with reducing abdominal pain secondary to your compression fracture Your urine today does not suggest you have a continued bladder infection, the antibiotics have been effective I encouraged to follow up with your primary care physician for help with additional pain control if needed If you find that you are getting worse or develop any new symptoms, please feel free to return to the emergency department for further evaluation. Prescriptions: New lidocaine 5 % adhesive patch,medicated 1 patch topical DAILY Qty: 30 0RF Rx Instructions: leave on most painful area for up to 12 hrs No Action albuterol sulfate [Proventil HFA] 90 MCG/PUFF HFA aerosol inhaler 2 puff INH PRN PRN (Reason: Shortness Of Breath) Qty: 0 Patient Comments: no longer taking mesalamine [Pentasa] 500 MG capsule, extended release 1,000 mg PO BID Qty: 0 Patient Comments: not sure if he is taking calcium carbonate-vitamin D3 500 mg-2.5 mcg (100 unit) Tablet,Chewable 3 tab PO DAILY Qty: 0 Rx Instructions: taking only for heartburn tamsulosin 0.4 mg capsule 0.4 mg PO DAILY Qty: 90 3RF potassium chloride 20 mEq tablet extended release 40 meq PO TID Qty: 360 1RF carvedilol 3.125 mg tablet 3.125 mg PO BID Qty: 180 3RF Rx Instructions: must administer with a meal/food simvastatin 40 mg tablet 20 mg PO BEDTIME fluticasone propionate 50 mcg/actuation spray,suspension 1 spray intranasal PRN PRN (Reason: allergy symptoms) Rx Instructions: only as needed acetaminophen 325 mg tablet 650 mg PO Q4H PRN (Reason: Pain) alfuzosin 10 mg tablet extended release 24 hr 10 mg PO DAILY Rx Instructions: pt does not recognize administer after the same meal each day ascorbic acid (vitamin C) 500 mg tablet 500 mg PO DAILY Rx Instructions: pt states that he no longer takes this omeprazole 20 mg tablet,delayed release (DR/EC) 20 mg PO DAILY Patient Comments: pt does not recognize this med Eliquis 5 mg tablet 5 mg PO BID Qty: 180 3RF Rx Instructions: pt does not recognize ferrous sulfate 325 mg (65 mg iron) Tablet 325 mg PO BID Rx Instructions: no longer taking this nitroglycerin [Nitrostat] 0.4 mg Tablet, Sublingual 0.4 mg SUBLINGUAL Q5-15M PRN (Reason: Chest Pain) Patient Comments: use it for chest pain as needed, haven't needed it in quite a while folic acid 1 mg Tablet 1 mg PO DAILY Patient Comments: no longer taking finasteride 5 mg Tablet 5 mg PO DAILY Patient Comments: not sure if he is taking loratadine 10 mg Tablet 10 mg PO DAILY Patient Comments: hasnt taken any in awhile torsemide 100 mg Tablet 100 mg PO DAILY PRN (Reason: Weight Gain) magnesium oxide 500 mg capsule 500 mg PO BID Rx Instructions: unsure if he is taking it aspirin 81 mg Capsule 81 mg PO DAILY isosorbide mononitrate 60 mg Tablet Extended Release 24 Hr 30 mg PO DAILY Rx Instructions: unsure if he is taking Referrals: Barrera Roth MD [Primary Care Provider] - Stand Alone Forms: Patient Portal/API
--- NOTE | 2023-07-10 04:12 | DI.RAD.S_ITS ---
PROCEDURE: XR LUMBAR SPINE 2-3V INDICATIONS: eval L2 compression fx, compare to CT 07/02. Worse? TECHNIQUE: 3 views of the lumbar spine were acquired. COMPARISON: [facility], CT, CT ABDOMEN PELVIS WO CON, 05/21/2023, 16:16. [facility], CT, CT LUMBAR SPINE WO CON, 03/09/2023, 3:05. [facility], CT, CT ABDOMEN PELVIS WO CON, 07/02/2023, 2:49. FINDINGS: Bones: 5 [id number] vertebrae are present. There is trace anterolisthesis of L3 on L4. There is moderate compression fracture of L2 and mild compression fracture of L3, new since 03/09/2023 but was present on 07/02/2023. Overall, no significant change. No suspicious bony lesions. There is moderate degenerative disc disease and facet arthropathy throughout the lumbar spine. Soft tissues: Overlying bowel gas pattern is normal. Vascular calcifications consistent with atherosclerosis. IMPRESSION: 1. Stable compression fractures of 2 and L3. 2. Moderate degenerative disc and facet disease. No significant discrepancy with the caustic cresylate shift superintendent radiology preliminary report. Dictated by: Nicky Muniz M.D. on 07/10/2023 at 8:26 Approved by: Nicky Muniz M.D. on 07/10/2023 at 8:31
--- NOTE | 2023-07-10 04:17 | PC.NURSE ---
FLEET DISPATCH MANAGER note: Bladder scanned patient. He had 252mL in his bladder. Alerted Dr. Freitas and Esequiel NUNES
[2023-07-10] MEDS: KETOROLAC 30 MG/ML VIAL IM (04:26)
[2023-07-10] MEDS: LIDOCAINE 5% PATCH 1 EACH TOP (06:04)
[2023-07-10 06:44] VITALS: BP 144/78; PULSE 70; RESP 16; TEMP 36.4; O2SAT 97
== END 2023-07-10 06:45 | disposition home or self-care (01) ==
PROVIDERS: Emergency Provider Emergency Medicine; PCP Internal Medicine
DX: K56.0 Paralytic ileus (principal); S32.020D Wedge compression fracture of second lumbar vertebra, subsequent encounter for fracture with routine healing; W19.XXXD Unspecified fall, subsequent encounter; Z79.01 Long term (current) use of anticoagulants; Z79.899 Other long term (current) drug therapy
CPT/HCPCS: 72100; 81003; 96372; 99283; J1885

== ENCOUNTER 2023-07-25 17:02 | Emergency (ER) | payer MEDICARE, OTHER, SELFPAY ==
[2023-01-17 02:34] VITALS: PULSE 75; RESP 37; O2SAT 94
[2023-05-15 23:55] VITALS: BMI 31.4
[2023-07-25 17:15] VITALS: BP 112/67; PULSE 113; RESP 16; TEMP 36.8; O2SAT 94; BMI 29.2
--- NOTE | 2023-07-25 17:17 | DI.RAD.S_ITS ---
PROCEDURE: XR CHEST 1V INDICATIONS: chest pain TECHNIQUE: One view of the chest was acquired. COMPARISON: [facility], CR, XR CHEST 1V, 05/15/2023, 16:46. [facility], CR, XR CHEST 1V, 03/31/2023, 20:30. FINDINGS: Surgical changes and devices: Sternotomy, prosthetic valve and atrial appendage clip. Lungs and pleura: Streaky left basilar airspace opacity. No pleural effusions or pneumothorax. Emphysema. Mediastinum: Mediastinal contours appear normal. Heart size is enlarged. Bones and chest wall: No suspicious bony lesions. Overlying soft tissues appear unremarkable. IMPRESSION: Streaky left basilar airspace opacity, likely atelectasis. Dictated by: Micah Parr M.D. on 07/25/2023 at 17:52 Approved by: Micah Parr M.D. on 07/25/2023 at 17:52
--- NOTE | 2023-07-25 17:19 | DI.RAD.S_ITS ---
PROCEDURE: XR ELBOW RT MIN 3V INDICATIONS: pain in elbow/swollen TECHNIQUE: 3 views of the elbow were acquired. COMPARISON: None. FINDINGS: Bones: No displaced fractures or dislocations. No suspicious bony lesions. Soft tissues: Large elbow joint effusion. No suspicious soft tissue calcifications. IMPRESSION: Large elbow joint effusion, highly concerning for fracture. No displaced fracture is seen. Consider confirmation with CT. Dictated by: Micah Parr M.D. on 07/25/2023 at 17:53 Approved by: Micah Parr M.D. on 07/25/2023 at 17:54
[2023-07-25 17:20] VITALS: BP 112/67; PULSE 111; RESP 16; O2SAT 95
[2023-07-25 17:41] LABS: Add Manual Diff / Slide Review NO; Basophils Absolute Auto 0 /uL (0-100); Basophils Percent Auto 0.9 % (0-2); Eosinophils Absolute Auto 300 /uL (0-450); Eosinophils Percent Auto 8.4 % (2-4); Hemoglobin 8.3 g/dL (13.5-17.5); Lymphocytes Absolute Auto 700 /uL (1100-4500); Lymphocytes Percent Auto 20.6 % (25-40); Mean Corpuscular Hemoglobin 24.5 PG (26-34); Mean Corpuscular Volume 76.5 fL (80-100); Monocytes Absolute Auto 500 /uL (0-900); Monocytes Percent Auto 16.1 % (3-14); Neutrophils Absolute Auto 1800 /uL (1500-7000); Platelet Count 134 X10^3/uL (150-400); Red Cell Distribution Width 16.6 % (11.6-14.8); White Blood Cell Count 3.3 X10^3/uL (4.5-11.0)
[2023-07-25 17:51] LABS: INR 1.3 (0.9-1.3); Prothrombin Time 14.7 SECONDS (9.4-12.5)
[2023-07-25 17:53] LABS: PTT Partial Thromboplastin Tim 32 SECONDS (25.1-36.5)
[2023-07-25 17:59] LABS: Alanine Aminotransferase 16 IU/L (<50); Albumin 3.6 g/dL (3.5-5.0); Albumin Globulin Ratio 1.2 (1.0-2.8); Alkaline Phosphatase 98 U/L (38-126); Aspartate Aminotransferase 29 IU/L (17-59); BUN Creatinine Ratio 39.3 (6-22); Bilirubin Total 0.6 mg/dL (0.2-1.3); Blood Urea Nitrogen 33 mg/dL (9-20); Calcium 9.4 mg/dL (8.4-10.2); Carbon Dioxide 37 mmol/L (22-32); Chloride 91 mmol/L (98-107); Creatine Kinase 32 U/L (55-170); Estimated Glomerular Filt Rate > 60 mL/min (>60); Globulin 3.1 g/dL (1.7-4.1); Glucose 110 mg/dL (80-110); HEMOLYSIS < 15 (0-50); Lipase 117 U/L (23-300); Magnesium 1.7 mg/dL (1.6-2.3); Potassium 3.6 mmol/L (3.4-5.1); Sodium 133 mmol/L (137-145); Total Protein 6.7 g/dL (6.3-8.2)
[2023-07-25 18:09] LABS: Troponin I 0.018 ng/mL (0.01-0.034)
--- NOTE | 2023-07-25 18:28 | ED.GENADULT ---
HPI - General Adult General Chief complaint: Dizziness Stated complaint: R Arm Pain/Numbness Time Seen by Provider: 07/25/23 18:11 Source: patient Mode of arrival: Ambulatory Limitations: no limitations History of Present Illness HPI narrative: Patient is an 82-year-old male who is here for evaluation of right elbow pain and numbness down into his hand. He states that it started several hours ago. He does not remember a specific cause of the discomfort although he potentially hit it on something but he does not quite remember this. He does report some lightheadedness because of the pain. No chest pain. No change in respiratory status. No skin changes over his right elbow. It does hurt him to flex and extend his elbow. No wrist discomfort. No shoulder discomfort. Related Data Home Medications Medication Instructions Recorded Confirmed albuterol sulfate 90 mcg/actuation 2 puff INH PRN PRN Shortness Of 03/22/17 06/03/23 aerosol inhaler (Proventil HFA) Breath ##0 mesalamine 500 mg capsule,extended 1,000 mg PO BID ##0 03/24/17 06/03/23 release (Pentasa) calcium carbonate 500 mg-vitamin 3 tab PO DAILY ##0 03/31/17 06/03/23 D3 2.5 mcg (100 unit) chewable tablet ferrous sulfate 325 mg (65 mg 325 mg PO BID 05/18/18 06/03/23 iron) tablet finasteride 5 mg tablet 5 mg PO DAILY 05/18/18 06/03/23 folic acid 1 mg tablet 1 mg PO DAILY 05/18/18 06/03/23 loratadine 10 mg tablet 10 mg PO DAILY 05/18/18 06/03/23 nitroglycerin 0.4 mg sublingual 0.4 mg sublingual Q5-15M PRN Chest 05/18/18 06/03/23 tablet (Nitrostat) Pain simvastatin 40 mg tablet 20 mg PO BEDTIME 12/07/21 06/03/23 fluticasone propionate 50 1 spray intranasal PRN PRN allergy 02/07/22 06/03/23 mcg/actuation nasal symptoms spray,suspension acetaminophen 325 mg tablet 650 mg PO Q4H PRN Pain 04/24/22 06/03/23 alfuzosin 10 mg tablet,extended 10 mg PO DAILY 04/24/22 06/03/23 release 24 hr ascorbic acid (vitamin C) 500 mg 500 mg PO DAILY 04/24/22 06/03/23 tablet omeprazole 20 mg tablet,delayed 20 mg PO DAILY 04/24/22 06/03/23 release isosorbide mononitrate 60 mg 30 mg PO DAILY 01/13/23 06/03/23 tablet,extended release 24 hr aspirin 81 mg capsule 81 mg PO DAILY 05/01/23 06/03/23 magnesium oxide 500 mg capsule 500 mg PO BID 05/01/23 06/03/23 torsemide 100 mg tablet 100 mg PO DAILY PRN Weight Gain 05/01/23 06/03/23 Previous Rx's Medication Instructions Recorded tamsulosin 0.4 mg capsule 0.4 mg PO DAILY #90 caps 03/04/23 apixaban 5 mg tablet (Eliquis) 5 mg PO BID #180 tabs 03/20/23 potassium chloride 20 mEq 40 meq (2 x 20 mEq) PO TID #360 04/28/23 tablet,extended release tabs carvedilol 3.125 mg tablet 3.125 mg PO BID #180 tabs 06/23/23 lidocaine 5 % topical patch 1 patch topical DAILY #30 ea 07/10/23 Allergies Allergy/AdvReac Type Severity Reaction Status Date / Time iodine Allergy Severe Blotches Verified 06/03/23 14:16 all over my body ibuprofen Allergy Mild NOT GOOD Verified 06/03/23 14:16 FOR STOMACH BLEEDING Sulfa (Sulfonamide Allergy Mild BURNED A Verified 06/03/23 14:16 Antibiotics) HOLE THRU INTESTINES thallium-201 Allergy Mild BREAKS OUT Verified 06/03/23 14:16 IN BLOTCHES AND ITCHING terazosin Allergy Hypotension Verified 06/03/23 14:16 spironolactone AdvReac Verified 06/03/23 14:16 Review of Systems Cardiovascular Cardiovascular: Reports system reviewed and no additional complaints, except as documented Respiratory Respiratory: Reports system reviewed and no additional complaints, except as documented Musculoskeletal Musculoskeletal: Reports system reviewed and no additional complaints, except as documented Integumentary/Breasts Skin/Breast: Reports system reviewed and no additional complaints, except as documented Neurologic Neurologic: Reports system reviewed and no additional complaints, except as documented Patient History Medical History Acute diastolic CHF (congestive heart failure) Anemia Right inguinal hernia History of colonic polyps 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 Mixed hyperlipidemia Essential hypertension Chronic diastolic CHF (congestive heart failure), NYHA class 1 Chronic anticoagulation Chronic atrial fibrillation Vision disorder Fractures Positive PPD Mumps Measles Chicken pox Tinnitus Hearing loss History of urinary incontinence (~2018) Diverticular disease Crohn's disease Myocardial infarction Coronary artery disease Pulmonary hypertension Asthma Surgical History Hx of heart artery stent (~1994) Anesthesia H/O mitral valve replacement (~03/2017) Family History Mother Congestive heart failure Father Coronary artery disease Social History household members: spouse Smoking Status: Never smoker alcohol intake: former substance use type: does not use Type(s) of exercise: walking frequency: daily Smoking Status: Never smoker alcohol intake frequency: holidays/special occasions only Substance Use Type: does not use Exam Initial Vital Signs Initial Vital Signs: Vital Signs Temperature 98.3 F 07/25/23 17:15 Pulse Rate 113 H 07/25/23 17:15 Respiratory Rate 16 07/25/23 17:15 Blood Pressure 112/67 07/25/23 17:15 Pulse Oximetry 94 07/25/23 17:15 Oxygen Delivery Method Room Air 07/25/23 17:15 Cardio Pulses: radial pulses present on the right Skin General: no rashes or lesions noted Neuro Sensory Exam: no sensory deficits noted Extrem Other: Patient has discomfort to palpation of the right elbow. Has swelling of the right elbow. Difficulty with flexion or extension. Difficulty with pronation and supination. Right wrist and right shoulder unremarkable. Procedures Orthopedic Splinting/Casting Injury #1: Side: right Upper Extremity Injury Location: elbow Upper Extremity Immobilizer: posterior splint Post splinting neuro exam: intact Post splinting vascular exam: intact Placed by: Nursing Course Orders Ordered: ED Orders 07/25/23 17:17 XR chest 1V Stat 07/25/23 17:19 XR elbow RT min 3V Stat 07/25/23 17:21 Complete Blood Count AUTO DIFF Stat Comprehensive Metabolic Panel Stat Lipase Stat Magnesium Stat PTT Partial Thromboplastin Long Stat Prothrombin Time INR Stat Troponin & CK Cardiac Panel Stat EKG-12 Lead Stat Discontinued Medications Hydrocodone Bitart/Acetaminophen (Hydrocodone/Acet 5/325 Tablet) 1 tab PO NOW ONE Stop: 07/25/23 18:37 Last Admin: 07/25/23 18:41 Dose: 1 tab Documented By: FLAVIO Hydrocodone Bitart/Acetaminophen (Hydrocodone/Acet 5/325 Prepack) 1 bottle MISC DIRECTED ONE Stop: 07/25/23 19:00 Last Admin: 07/25/23 19:06 Dose: 1 bottle Documented By: HNG Vital Signs Vital signs: Vital Signs - 8 hr 07/25/23 17:15 07/25/23 17:20 Temperature 98.3 F Pulse Rate 113 H 111 H Respiratory Rate 16 16 Blood Pressure 112/67 112/67 Pulse Oximetry 94 95 Oxygen Delivery Method Room Air Room Air Medical Decision Making Medical Records Medical records reviewed: Yes I reviewed the patient's medical records. Lab Data Lab results reviewed: Yes I reviewed the patient's lab results. 07/25/23 17:21 07/25/23 17:21 Labs: Lab Results 07/25/23 Range/Units 17:21 WBC 3.3 L (4.5-11.0) X10^3/uL RBC 3.40 L (4.5-5.9) X10^6/uL Hgb 8.3 L (13.5-17.5) g/dL Hct 26.0 L (41-53) % MCV 76.5 L (80-100) fL MCH 24.5 L (26-34) PG MCHC 32.0 (30-36) % RDW 16.6 H (11.6-14.8) % Plt Count 134 L (150-400) X10^3/uL Neut % (Auto) 54.0 (50-75) % Lymph % (Auto) 20.6 L (25-40) % Gilliam % (Auto) 16.1 H (3-14) % Eos % (Auto) 8.4 H (2-4) % Baso % (Auto) 0.9 (0-2) % Neut # (Auto) 1800 (0163-2201) /uL Lymph # (Auto) 700 L (1020-9646) /uL Gilliam # (Auto) 500 (0-900) /uL Eos # (Auto) 300 (0-450) /uL Baso # (Auto) 0 (0-100) /uL PT 14.7 H (9.4-12.5) SECONDS INR 1.3 (0.9-1.3) APTT 32 (25.1-36.5) SECONDS Sodium 133 L (137-145) mmol/L Potassium 3.6 (3.4-5.1) mmol/L Chloride 91 L (98-107) mmol/L Carbon Dioxide 37 H (22-32) mmol/L BUN 33 H (9-20) mg/dL Creatinine 0.84 (0.66-1.25) mg/dL Estimated GFR > 60 (>60) mL/min BUN/Creatinine Ratio 39.3 H (6-22) Glucose 110 (80-110) mg/dL Calcium 9.4 (8.4-10.2) mg/dL Magnesium 1.7 (1.6-2.3) mg/dL Total Bilirubin 0.6 (0.2-1.3) mg/dL AST 29 (17-59) IU/L ALT 16 (<50) IU/L Alkaline Phosphatase 98 (38-126) U/L Total Creatine Kinase 32 L (55-170) U/L Troponin I 0.018 (0.01-0.034) ng/mL Total Protein 6.7 (6.3-8.2) g/dL Albumin 3.6 (3.5-5.0) g/dL Globulin 3.1 (1.7-4.1) g/dL Albumin/Globulin Ratio 1.2 (1.0-2.8) Lipase 117 (23-300) U/L Imaging Data Chest x-ray: Radiologist's Impression: PROCEDURE: XR CHEST 1V INDICATIONS: chest pain TECHNIQUE: One view of the chest was acquired. COMPARISON: [facility], , XR CHEST 1V, 05/15/2023, 16:46. [facility], , XR CHEST 1V, 03/31/2023, 20:30. FINDINGS: Surgical changes and devices: Sternotomy, prosthetic valve and atrial appendage clip. Lungs and pleura: Streaky left basilar airspace opacity. No pleural effusions or pneumothorax. Emphysema. Mediastinum: Mediastinal contours appear normal. Heart size is enlarged. Bones and chest wall: No suspicious bony lesions. Overlying soft tissues appear unremarkable. IMPRESSION: Streaky left basilar airspace opacity, likely atelectasis. Extremity x-ray #1: Radiologist's Impression: PROCEDURE: XR ELBOW RT MIN 3V INDICATIONS: pain in elbow/swollen TECHNIQUE: 3 views of the elbow were acquired. COMPARISON: None. FINDINGS: Bones: No displaced fractures or dislocations. No suspicious bony lesions. Soft tissues: Large elbow joint effusion. No suspicious soft tissue calcifications. IMPRESSION: Large elbow joint effusion, highly concerning for fracture. No displaced fracture is seen. Consider confirmation with CT. MDM Narrative Medical decision making narrative: No definitive fracture noted on the x-ray but he does have an effusion which is concern for an occult fracture. His exam is not consistent with a cellulitis/gout/bursitis. There was no redness of the skin. No warmth over the area. Afebrile. He is unable to provide specific information as to how he potentially injured his elbow. Plan will be to place him in a posterior splint. Afterwards he states that putting him in the splint actually improved his symptoms somewhat. Will have him follow-up with his primary doctor next week for repeat x-ray to determine whether or not a fracture shows it that point. The patient was given specific return precautions that if his pain gets worse or he were to get a fever or any other new symptoms that he should return to the emergency department for further evaluation. Discharge Plan Departure Patient Disposition: Home Clinical Impression: Effusion of elbow joint, right, Elbow pain, right Instructions: How to Take Care of Your Splint Activity Restrictions/Additional Instructions: The splint that was placed today does need to stay on and stay clean and stay dry. You need to treat it like a cast. I recommend on Friday you contact your primary care doctor to let them know that you were here in the emergency department and you need a repeat x-ray at the end of the week. Take the pain medication as needed. Return to the emergency department for new or worsening symptoms. Prescriptions: No Action albuterol sulfate [Proventil HFA] 90 MCG/PUFF HFA aerosol inhaler 2 puff INH PRN PRN (Reason: Shortness Of Breath) Qty: 0 Patient Comments: no longer taking mesalamine [Pentasa] 500 MG capsule, extended release 1,000 mg PO BID Qty: 0 Patient Comments: not sure if he is taking calcium carbonate-vitamin D3 500 mg-2.5 mcg (100 unit) Tablet,Chewable 3 tab PO DAILY Qty: 0 Rx Instructions: taking only for heartburn tamsulosin 0.4 mg capsule 0.4 mg PO DAILY Qty: 90 3RF potassium chloride 20 mEq tablet extended release 40 meq PO TID Qty: 360 1RF carvedilol 3.125 mg tablet 3.125 mg PO BID Qty: 180 3RF Rx Instructions: must administer with a meal/food simvastatin 40 mg tablet 20 mg PO BEDTIME fluticasone propionate 50 mcg/actuation spray,suspension 1 spray intranasal PRN PRN (Reason: allergy symptoms) Rx Instructions: only as needed acetaminophen 325 mg tablet 650 mg PO Q4H PRN (Reason: Pain) alfuzosin 10 mg tablet extended release 24 hr 10 mg PO DAILY Rx Instructions: pt does not recognize administer after the same meal each day ascorbic acid (vitamin C) 500 mg tablet 500 mg PO DAILY Rx Instructions: pt states that he no longer takes this omeprazole 20 mg tablet,delayed release (DR/EC) 20 mg PO DAILY Patient Comments: pt does not recognize this med Eliquis 5 mg tablet 5 mg PO BID Qty: 180 3RF Rx Instructions: pt does not recognize ferrous sulfate 325 mg (65 mg iron) Tablet 325 mg PO BID Rx Instructions: no longer taking this nitroglycerin [Nitrostat] 0.4 mg Tablet, Sublingual 0.4 mg SUBLINGUAL Q5-15M PRN (Reason: Chest Pain) Patient Comments: use it for chest pain as needed, haven't needed it in quite a while folic acid 1 mg Tablet 1 mg PO DAILY Patient Comments: no longer taking finasteride 5 mg Tablet 5 mg PO DAILY Patient Comments: not sure if he is taking loratadine 10 mg Tablet 10 mg PO DAILY Patient Comments: hasnt taken any in awhile torsemide 100 mg Tablet 100 mg PO DAILY PRN (Reason: Weight Gain) magnesium oxide 500 mg capsule 500 mg PO BID Rx Instructions: unsure if he is taking it aspirin 81 mg Capsule 81 mg PO DAILY isosorbide mononitrate 60 mg Tablet Extended Release 24 Hr 30 mg PO DAILY Rx Instructions: unsure if he is taking lidocaine 5 % adhesive patch,medicated 1 patch topical DAILY Qty: 30 0RF Rx Instructions: leave on most painful area for up to 12 hrs Referrals: Barrera Roth MD [Primary Care Provider] - Stand Alone Forms: Patient Portal/API
[2023-07-25] MEDS: HYDROCODONE/ACET 5/325 TABLET 1 TAB PO (18:41)
[2023-07-25] MEDS: HYDROCODONE/ACET 5/325 PREPACK 1 BOTTLE MISC (19:06)
== END 2023-07-25 19:15 | disposition home or self-care (01) ==
PROVIDERS: Emergency Medicine; Emergency Provider Emergency Medicine; PCP Internal Medicine
DX: M25.421 Effusion, right elbow (principal); M25.521 Pain in right elbow; R07.9 Chest pain, unspecified; R42 Dizziness and giddiness
CPT/HCPCS: 29125; 71045; 73080; 80053; 82550; 83690; 83735; 84484; 85025; 85610; 85730; 93005; 93010; 99284

== ENCOUNTER → 2023-08-12 14:13 | Outpatient (CLI) | payer MEDICARE, OTHER, SELFPAY ==
[2023-01-17 02:34] VITALS: PULSE 75; RESP 37; O2SAT 94
[2023-05-15 23:55] VITALS: BMI 31.4
--- NOTE | 2023-08-12 14:15 | DI.RAD.S_ITS ---
PROCEDURE: XR ELBOW RT MIN 3V INDICATIONS: f/u on past xray TECHNIQUE: 3 views of the elbow were acquired. COMPARISON: [facility], CR, XR ELBOW RT MIN 3V, 07/25/2023, 17:21. FINDINGS: Bones: Radiolucency involving radial head adjacent to its articulation with capitellum, a subtle nondisplaced fracture cannot be excluded. No other fracture or dislocation. Moderate to severe osteoarthritic changes are noted throughout elbow joints. No suspicious bony lesions. Soft tissues: Moderate to large joint effusion is again seen with distension of anterior and posterior fat pads. No suspicious soft tissue calcifications. IMPRESSION: Moderate to large joint effusion and possible subtle nondisplaced intra-articular fracture of radial head. 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 No other fracture or dislocation. Dictated by: Cecil Angela M.D. on 08/12/2023 at 16:48 Approved by: Cecil Angela M.D. on 08/12/2023 at 16:50
== END ==
LOC: RAD 14:14
PROVIDERS: PCP Internal Medicine; Referring Provider Physician Assistant; Visit Provider Physician Assistant
DX: M25.421 Effusion, right elbow (principal); M19.021 Primary osteoarthritis, right elbow
CPT/HCPCS: 73080

== ENCOUNTER 2023-08-19 02:11 | Emergency (ER) | payer MEDICARE, OTHER, SELFPAY ==
[2023-01-17 02:34] VITALS: PULSE 75; RESP 37; O2SAT 94
[2023-05-15 23:55] VITALS: BMI 31.4
[2023-08-19 02:16] VITALS: PULSE 98; RESP 19; O2SAT 96
[2023-08-19 02:18] VITALS: BP 101/67; PULSE 73; RESP 17; TEMP 36.8; O2SAT 96; BMI 27.1
[2023-08-19 02:30] VITALS: PULSE 94; O2SAT 93
[2023-08-19] MEDS: ACETAMINOPHEN IV 1,000 MG/100 ML VIAL 400 MG IV (02:53)
[2023-08-19] MEDS: DEXAMETHASONE 10 MG/ML VIAL IV (02:53)
[2023-08-19] MEDS: MORPHINE 4 MG/ML INJ IV (02:53)
[2023-08-19 03:00] VITALS: PULSE 107; O2SAT 95
--- NOTE | 2023-08-19 03:10 | ED.BACK ---
HPI - Back Pain/Injury General Chief Complaint: Back Pain/Injury Stated Complaint: Chronic back pain Time Seen by Provider: 08/19/23 02:12 Source: patient History of Present Illness HPI Narrative: 83-year-old male with history of chronic back pain presents by EMS from home for lower back pain. Back pain is similar to his chronic back pain just slightly more severe. Patient states that he thinks he may have done something to aggravate his back during the day. Usually walks with a walker at baseline. No medications taken prior to arrival. Denies numbness or weakness. Related Data Home Medications Medication Instructions Recorded Confirmed albuterol sulfate 90 mcg/actuation 2 puff INH PRN PRN Shortness Of 03/22/17 08/12/23 aerosol inhaler (Proventil HFA) Breath ##0 mesalamine 500 mg capsule,extended 1,000 mg PO BID ##0 03/24/17 08/12/23 release (Pentasa) calcium carbonate 500 mg-vitamin 3 tab PO DAILY ##0 03/31/17 08/12/23 D3 2.5 mcg (100 unit) chewable tablet ferrous sulfate 325 mg (65 mg 325 mg PO BID 05/18/18 08/12/23 iron) tablet finasteride 5 mg tablet 5 mg PO DAILY 05/18/18 08/12/23 folic acid 1 mg tablet 1 mg PO DAILY 05/18/18 08/12/23 loratadine 10 mg tablet 10 mg PO DAILY 05/18/18 08/12/23 nitroglycerin 0.4 mg sublingual 0.4 mg sublingual Q5-15M PRN Chest 05/18/18 08/12/23 tablet (Nitrostat) Pain simvastatin 40 mg tablet 20 mg PO BEDTIME 12/07/21 08/12/23 fluticasone propionate 50 1 spray intranasal PRN PRN allergy 02/07/22 08/12/23 mcg/actuation nasal symptoms spray,suspension acetaminophen 325 mg tablet 650 mg PO Q4H PRN Pain 04/24/22 08/12/23 alfuzosin 10 mg tablet,extended 10 mg PO DAILY 04/24/22 08/12/23 release 24 hr ascorbic acid (vitamin C) 500 mg 500 mg PO DAILY 04/24/22 08/12/23 tablet omeprazole 20 mg tablet,delayed 20 mg PO DAILY 04/24/22 08/12/23 release isosorbide mononitrate 60 mg 30 mg PO DAILY 01/13/23 08/12/23 tablet,extended release 24 hr aspirin 81 mg capsule 81 mg PO DAILY 05/01/23 08/12/23 magnesium oxide 500 mg capsule 500 mg PO BID 05/01/23 08/12/23 torsemide 100 mg tablet 100 mg PO DAILY PRN Weight Gain 05/01/23 08/12/23 Previous Rx's Medication Instructions Recorded tamsulosin 0.4 mg capsule 0.4 mg PO DAILY #90 caps 03/04/23 apixaban 5 mg tablet (Eliquis) 5 mg PO BID #180 tabs 03/20/23 potassium chloride 20 mEq 40 meq (2 x 20 mEq) PO TID #360 04/28/23 tablet,extended release tabs carvedilol 3.125 mg tablet 3.125 mg PO BID #180 tabs 06/23/23 acetaminophen 500 mg tablet 1,000 mg (2 x 500 mg) PO Q8H #90 08/12/23 (Tylenol Extra Strength) tabs lidocaine 5 % topical patch 1 patch topical DAILY #30 ea 08/13/23 Allergies Allergy/AdvReac Type Severity Reaction Status Date / Time iodine Allergy Severe Blotches Verified 08/12/23 13:43 all over my body ibuprofen Allergy Mild NOT GOOD Verified 08/12/23 13:43 FOR STOMACH BLEEDING Sulfa (Sulfonamide Allergy Mild BURNED A Verified 08/12/23 13:43 Antibiotics) HOLE THRU INTESTINES thallium-201 Allergy Mild BREAKS OUT Verified 08/12/23 13:43 IN BLOTCHES AND ITCHING terazosin Allergy Hypotension Verified 08/12/23 13:43 spironolactone AdvReac Verified 08/12/23 13:43 Review of Systems Review of Systems Narrative: Negative except as noted above Patient History Medical History Acute diastolic CHF (congestive heart failure) Anemia Right inguinal hernia History of colonic polyps 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 Mixed hyperlipidemia Essential hypertension Chronic diastolic CHF (congestive heart failure), NYHA class 1 Chronic anticoagulation Chronic atrial fibrillation Vision disorder Fractures Positive PPD Mumps Measles Chicken pox Tinnitus Hearing loss History of urinary incontinence (~2018) Diverticular disease Crohn's disease Myocardial infarction Coronary artery disease Pulmonary hypertension Asthma Surgical History Hx of heart artery stent (~1994) Anesthesia H/O mitral valve replacement (~03/2017) Family History Mother Congestive heart failure Father Coronary artery disease Social History household members: spouse Smoking Status: Never smoker alcohol intake: former substance use type: does not use Type(s) of exercise: walking frequency: daily Smoking Status: Never smoker alcohol intake frequency: holidays/special occasions only Substance Use Type: does not use Exam Initial Vital Signs Initial Vital Signs: Vital Signs Pulse Rate 98 H 08/19/23 02:16 Respiratory Rate 19 08/19/23 02:16 Pulse Oximetry 96 08/19/23 02:16 Oxygen Delivery Method Room Air 08/19/23 02:16 Const: Awake, alert, no acute distress, frail Cardiac: regular rate, regular rhythm RESP: unlabored, clear bilaterally, no wheezing GI: Atraumatic, soft, nontender, nondistended, no rebound, no guarding MSK: Atraumatic, full range of motion, pulses equal Skin: Warm, Dry, intact, no rashes Neuro: AO x3, CN II-XII grossly intact, moves all extremities Course Orders Ordered: Discontinued Medications Dexamethasone (Dexamethasone 10 Mg/Ml Vial) 10 mg IV NOW ONE Stop: 08/19/23 02:37 Last Admin: 08/19/23 02:53 Dose: 10 mg Documented By: JUAN DANIEL Acetaminophen (Ofirmev) 1,000 mg in 100 mls @ 400 mls/hr IV NOW ONE Stop: 08/19/23 02:50 Last Infusion: 08/19/23 03:11 Dose: Infused Documented By: Admin: 08/19/23 02:53 Dose: 400 mls/hr Documented By: JUAN DANIEL Morphine Sulfate (Morphine 4 Mg/Ml Inj) 4 mg IV NOW ONE Stop: 08/19/23 02:37 Last Admin: 08/19/23 02:53 Dose: 4 mg Documented By: JUAN DANIEL Vital Signs Vital signs: Vital Signs - 8 hr 08/19/23 02:16 08/19/23 02:18 08/19/23 02:30 Temperature 98.3 F Pulse Rate 98 H 73 94 H Respiratory Rate 19 17 Blood Pressure 101/67 Pulse Oximetry 96 96 93 Oxygen Delivery Method Room Air Room Air 08/19/23 03:00 Temperature Pulse Rate 107 H Respiratory Rate Blood Pressure Pulse Oximetry 95 Oxygen Delivery Method Room Air MDM - Back Pain/Injury Differential Diagnosis Differential diagnosis: Likely lumbar radiculopathy, sciatica and strain of lumbar region MDM Narrative Medical decision making narrative: Acute on chronic lumbar back pain, similar to previous. Patient is followed by pain management, he saw Dr. Neal's office on 08/15/23 and has scheduled MRI of his C, T, and L-spine scheduled. No new neurologic deficits, patient's pain is controlled with medications administered in the emergency department. Patient reassessed, states that he feels ?much better?. Stable for discharge home with close follow up with his pain management doctor. Discharge Plan Departure Patient Disposition: Home Clinical Impression: Acute lumbar back pain Instructions: DI for Back Strain or Sprain Prescriptions: No Action albuterol sulfate [Proventil HFA] 90 MCG/PUFF HFA aerosol inhaler 2 puff INH PRN PRN (Reason: Shortness Of Breath) Qty: 0 Patient Comments: no longer taking mesalamine [Pentasa] 500 MG capsule, extended release 1,000 mg PO BID Qty: 0 Patient Comments: not sure if he is taking calcium carbonate-vitamin D3 500 mg-2.5 mcg (100 unit) Tablet,Chewable 3 tab PO DAILY Qty: 0 Rx Instructions: taking only for heartburn tamsulosin 0.4 mg capsule 0.4 mg PO DAILY Qty: 90 3RF potassium chloride 20 mEq tablet extended release 40 meq PO TID Qty: 360 1RF carvedilol 3.125 mg tablet 3.125 mg PO BID Qty: 180 3RF Rx Instructions: must administer with a meal/food lidocaine 5 % adhesive patch,medicated 1 patch topical DAILY Qty: 30 1RF Rx Instructions: leave on most painful area for up to 12 hrs simvastatin 40 mg tablet 20 mg PO BEDTIME fluticasone propionate 50 mcg/actuation spray,suspension 1 spray intranasal PRN PRN (Reason: allergy symptoms) Rx Instructions: only as needed acetaminophen 325 mg tablet 650 mg PO Q4H PRN (Reason: Pain) alfuzosin 10 mg tablet extended release 24 hr 10 mg PO DAILY Rx Instructions: pt does not recognize administer after the same meal each day ascorbic acid (vitamin C) 500 mg tablet 500 mg PO DAILY Rx Instructions: pt states that he no longer takes this omeprazole 20 mg tablet,delayed release (DR/EC) 20 mg PO DAILY Patient Comments: pt does not recognize this med Eliquis 5 mg tablet 5 mg PO BID Qty: 180 3RF Rx Instructions: pt does not recognize acetaminophen [Tylenol Extra Strength] 500 mg tablet 1,000 mg PO Q8H Qty: 90 0RF ferrous sulfate 325 mg (65 mg iron) Tablet 325 mg PO BID Rx Instructions: no longer taking this nitroglycerin [Nitrostat] 0.4 mg Tablet, Sublingual 0.4 mg SUBLINGUAL Q5-15M PRN (Reason: Chest Pain) Patient Comments: use it for chest pain as needed, haven't needed it in quite a while folic acid 1 mg Tablet 1 mg PO DAILY Patient Comments: no longer taking finasteride 5 mg Tablet 5 mg PO DAILY Patient Comments: not sure if he is taking loratadine 10 mg Tablet 10 mg PO DAILY Patient Comments: hasnt taken any in awhile torsemide 100 mg Tablet 100 mg PO DAILY PRN (Reason: Weight Gain) magnesium oxide 500 mg capsule 500 mg PO BID Rx Instructions: unsure if he is taking it aspirin 81 mg Capsule 81 mg PO DAILY isosorbide mononitrate 60 mg Tablet Extended Release 24 Hr 30 mg PO DAILY Rx Instructions: unsure if he is taking Referrals: Barrera Roth MD [Primary Care Provider] - Stand Alone Forms: Patient Portal/API
[2023-08-19 03:37] VITALS: BP 101/67; PULSE 67; RESP 19; O2SAT 97
== END 2023-08-19 04:09 | disposition home or self-care (01) ==
PROVIDERS: Emergency Provider Emergency Medicine; PCP Internal Medicine
DX: M54.50 Low back pain, unspecified (principal)
CPT/HCPCS: 96365; 96375; 99283; J0136; J1100; J2270

== ENCOUNTER → 2023-09-01 13:17 | Outpatient (CLI) | payer MEDICARE, OTHER, SELFPAY ==
[2023-01-17 02:34] VITALS: PULSE 75; RESP 37; O2SAT 94
[2023-05-15 23:55] VITALS: BMI 31.4
--- NOTE | 2023-09-01 13:19 | DI.MRI.S_ITS ---
PROCEDURE: MR LUMBAR SPINE WO CON INDICATIONS: Lumbar compression fractures TECHNIQUE: Noncontrast sagittal T1 spin echo and T2 fast echo, sagittal STIR, and T2 fast spin echo through the lumbar spine. In cases with scoliosis, additional coronal T2 fast spin echo may be performed. COMPARISON: [facility], CT, CT ABDOMEN PELVIS WO CON, 07/02/2023, 2:49. FINDINGS: Image quality: Excellent. Alignment and Curvature: There is normal bony alignment. Bone Marrow: Acute to subacute compression deformity of the T12 vertebral body. Subacute to chronic compression deformities of the L1 and L2 vertebral bodies. Spinal Cord: Conus medullaris terminates at the L1 level. Visualized cord demonstrates normal signal and size. Paraspinous Soft Tissues: No paravertebral masses. T12-L1: Broad-based disc bulge. L1-L2: Broad-based disc bulge. Trace left effusion. Moderate bilateral neural foraminal narrowing. L2-L3: Facet hypertrophy. Broad-based disc bulge. Moderate to severe right and mild left neural foraminal narrowing. Moderate to severe spinal canal narrowing. L3-L4: Facet hypertrophy, broad-based disc bulge resulting in moderate to severe spinal canal narrowing. Moderate to severe right and mild left neural foraminal narrowing. L4-L5: Facet hypertrophy and broad-based disc bulge resulting in severe spinal canal narrowing, moderate right and moderate to severe left neural foraminal narrowing. L5-S1: Broad-based disc bulge and facet hypertrophy. Moderate to severe right and [id number] left neural foraminal narrowing. IMPRESSION: Acute to subacute compression deformity of the T12 vertebral body. Subacute to chronic compression deformities of the L1 and L2 vertebral bodies. Multilevel degenerative disc disease and facet arthrosis. Of note, there is moderate to severe spinal canal narrowing at L2-3, L3-4, and severe spinal canal narrowing at L4-5. Multiple levels of at least moderate neural foraminal narrowing, as above. Dictated by: Micah Parr M.D. on 09/01/2023 at 16:14 Approved by: Micah Parr M.D. on 09/01/2023 at 16:22
== END ==
LOC: MRI 13:18
PROVIDERS: PCP Internal Medicine; Referring Provider Anesthesiology; Visit Provider Anesthesiology
DX: M51.36 Other intervertebral disc degeneration, lumbar region (principal); S32.039A Unspecified fracture of third lumbar vertebra, initial encounter for closed fracture; M47.816 Spondylosis without myelopathy or radiculopathy, lumbar region; M48.061 Spinal stenosis, lumbar region without neurogenic claudication; M51.37 Other intervertebral disc degeneration, lumbosacral region; M47.817 Spondylosis without myelopathy or radiculopathy, lumbosacral region; M48.07 Spinal stenosis, lumbosacral region; M48.55XA Collapsed vertebra, not elsewhere classified, thoracolumbar region, initial encounter for fracture; M54.50 Low back pain, unspecified
CPT/HCPCS: 72148

== ENCOUNTER → 2023-09-24 15:11 | Outpatient (CLI) | payer MEDICARE, OTHER, SELFPAY ==
[2023-01-17 02:34] VITALS: PULSE 75; RESP 37; O2SAT 94
[2023-05-15 23:55] VITALS: BMI 31.4
[2023-09-24 15:45] LABS: Hemoglobin 8.5 g/dL (13.5-17.5); Mean Corpuscular HGB Conc 31.3 % (30-36); Mean Corpuscular Hemoglobin 25.4 PG (26-34); Mean Corpuscular Volume 81.4 fL (80-100); Platelet Count 117 X10^3/uL (150-400); Red Blood Cell Count 3.32 X10^6/uL (4.5-5.9); Red Cell Distribution Width 18.8 % (11.6-14.8); White Blood Cell Count 3.8 X10^3/uL (4.5-11.0)
[2023-09-24 16:01] LABS: Alanine Aminotransferase 15 IU/L (<50); Albumin 3.7 g/dL (3.5-5.0); Albumin Globulin Ratio 1.4 (1.0-2.8); Alkaline Phosphatase 76 U/L (38-126); Aspartate Aminotransferase 27 IU/L (17-59); BUN Creatinine Ratio 41.3 (6-22); Bilirubin Total 0.6 mg/dL (0.2-1.3); Blood Urea Nitrogen 33 mg/dL (9-20); Calcium 9.1 mg/dL (8.4-10.2); Carbon Dioxide 39 mmol/L (22-32); Chloride 95 mmol/L (98-107); Estimated Glomerular Filt Rate > 60 mL/min (>60); Globulin 2.7 g/dL (1.7-4.1); Glucose 98 mg/dL (80-110); HEMOLYSIS < 15 (0-50); Sodium 136 mmol/L (137-145); Total Protein 6.4 g/dL (6.3-8.2)
== END ==
PROVIDERS: PCP Internal Medicine; Referring Provider Internal Medicine; Visit Provider Internal Medicine
DX: I48.20 Chronic atrial fibrillation, unspecified (principal); Z79.01 Long term (current) use of anticoagulants
CPT/HCPCS: 36415; 80053; 85027

== ENCOUNTER 2023-10-03 04:26 | Inpatient (IN) | payer MEDICARE, OTHER, SELFPAY ==
[2023-01-17 02:34] VITALS: PULSE 75; RESP 37; O2SAT 94
[2023-05-15 23:55] VITALS: BMI 31.4
[2023-10-03] VITALS (21 sets, daily range): BP systolic 98–116; BP diastolic 61–76; PULSE 85–107; RESP 11–25; TEMP 36.3–36.6; O2SAT 85–97; BMI 28.0; BMI 27.3
--- NOTE | 2023-10-03 04:39 | DI.RAD.S_ITS ---
PROCEDURE: XR CHEST 1V INDICATIONS: chest pain TECHNIQUE: One view of the chest was acquired. COMPARISON: [facility], CR, XR CHEST 1V, 07/25/2023, 17:21. FINDINGS: Surgical changes and devices: Left atrial appendage clip suspected. Post median sternotomy. Cardiac valve replacement. Lungs and pleura: Streaky opacity in the left lung. No pleural effusions or pneumothorax. Mediastinum: Mediastinal contours appear unchanged. Heart size is prominent. Bones and chest wall: No suspicious bony lesions. Overlying soft tissues appear unremarkable. IMPRESSION: Cardiomegaly. No obvious CHF. Streaky opacity in the left lung. Favor atelectasis or scarring. This report is concordant with the overnight preliminary interpretation. Dictated by: Devon Rodney M.D. on 10/03/2023 at 8:23 Approved by: Devon Rodney M.D. on 10/03/2023 at 8:24
[2023-10-03 04:46] LABS: Add Manual Diff / Slide Review NO; Basophils Absolute Auto 100 /uL (0-100); Basophils Percent Auto 1.5 % (0-2); Eosinophils Absolute Auto 200 /uL (0-450); Eosinophils Percent Auto 5.1 % (2-4); Hematocrit 24.6 % (41-53); Hemoglobin 7.6 g/dL (13.5-17.5); Lymphocytes Absolute Auto 600 /uL (1100-4500); Lymphocytes Percent Auto 19.1 % (25-40); Mean Corpuscular HGB Conc 30.7 % (30-36); Mean Corpuscular Hemoglobin 25.4 PG (26-34); Mean Corpuscular Volume 82.7 fL (80-100); Monocytes Absolute Auto 500 /uL (0-900); Monocytes Percent Auto 15.9 % (3-14); Neutrophils Absolute Auto 1900 /uL (1500-7000); Neutrophils Percent Auto 58.4 % (50-75); Platelet Count 106 X10^3/uL (150-400); Red Blood Cell Count 2.98 X10^6/uL (4.5-5.9); Red Cell Distribution Width 20.3 % (11.6-14.8); White Blood Cell Count 3.3 X10^3/uL (4.5-11.0)
--- NOTE | 2023-10-03 04:49 | ED_ITS ---
HPI - Chest Pain General Chief Complaint: Chest Pain Stated Complaint: chest pain 2hrs Time Seen by Provider: 10/03/23 04:40 Source: EMS Mode of arrival: EMS Limitations: no limitations History of Present Illness HPI narrative: Elderly gentleman comes by ambulance to the ER because of chest pain and shortness of breath. He went to bed feeling well last night and then during the night he awoke with severe breathlessness and midsternal chest pain. Said the pain did not radiate and lasted very intensely for about an hour. He says it is much better now. It made him feel a little sweaty but not nauseated. He did have shortness of breath. He has not had cough or fever. No history of thromboembolism. He says he was on blood thinners for a long time but is no longer taking them and he can not recall why. He says he knows that he has atrial fibrillation at baseline. Related Data Home Medications Medication Instructions Recorded Confirmed albuterol sulfate 90 mcg/actuation 2 puff INH PRN PRN Shortness Of 03/22/17 09/25/23 aerosol inhaler (Proventil HFA) Breath ##0 mesalamine 500 mg capsule,extended 1,000 mg PO BID ##0 03/24/17 09/25/23 release (Pentasa) calcium carbonate 500 mg-vitamin 3 tab PO DAILY ##0 03/31/17 09/25/23 D3 2.5 mcg (100 unit) chewable tablet ferrous sulfate 325 mg (65 mg 325 mg PO BID 05/18/18 09/25/23 iron) tablet finasteride 5 mg tablet 5 mg PO DAILY 05/18/18 09/25/23 loratadine 10 mg tablet 10 mg PO DAILY 05/18/18 09/25/23 simvastatin 40 mg tablet 20 mg PO BEDTIME 12/07/21 09/25/23 fluticasone propionate 50 1 spray intranasal PRN PRN allergy 02/07/22 09/25/23 mcg/actuation nasal symptoms spray,suspension alfuzosin 10 mg tablet,extended 10 mg PO DAILY 04/24/22 09/25/23 release 24 hr ascorbic acid (vitamin C) 500 mg 500 mg PO DAILY 04/24/22 09/25/23 tablet omeprazole 20 mg tablet,delayed 20 mg PO DAILY 04/24/22 09/25/23 release isosorbide mononitrate 60 mg 30 mg PO DAILY 01/13/23 09/25/23 tablet,extended release 24 hr aspirin 81 mg capsule 81 mg PO DAILY 05/01/23 09/25/23 magnesium oxide 500 mg capsule 500 mg PO BID 05/01/23 09/25/23 torsemide 100 mg tablet 100 mg PO DAILY PRN Weight Gain 05/01/23 09/25/23 Previous Rx's Medication Instructions Recorded tamsulosin 0.4 mg capsule 0.4 mg PO DAILY #90 caps 03/04/23 apixaban 5 mg tablet (Eliquis) 5 mg PO BID #180 tabs 03/20/23 potassium chloride 20 mEq 40 meq (2 x 20 mEq) PO TID #360 04/28/23 tablet,extended release tabs carvedilol 3.125 mg tablet 3.125 mg PO BID #180 tabs 06/23/23 acetaminophen 500 mg tablet 1,000 mg (2 x 500 mg) PO Q8H #90 08/12/23 (Tylenol Extra Strength) tabs lidocaine 5 % topical patch 1 patch topical DAILY #30 ea 08/13/23 calcitonin (salmon) 200 1 spray intranasal (ALT) DAILY 08/26/23 unit/actuation nasal spray sacral fx 3 months #3.7 mL pregabalin 25 mg capsule 25 mg PO TID #90 caps 09/25/23 Allergies Allergy/AdvReac Type Severity Reaction Status Date / Time iodine Allergy Severe Blotches Verified 09/25/23 14:12 all over my body ibuprofen Allergy Mild NOT GOOD Verified 09/25/23 14:12 FOR STOMACH BLEEDING Sulfa (Sulfonamide Allergy Mild BURNED A Verified 09/25/23 14:12 Antibiotics) HOLE THRU INTESTINES thallium-201 Allergy Mild BREAKS OUT Verified 09/25/23 14:12 IN BLOTCHES AND ITCHING terazosin Allergy Hypotension Verified 09/25/23 14:12 spironolactone AdvReac Verified 09/25/23 14:12 Patient History Medical History Lumbar compression fracture Lumbar spondylosis Anemia Right inguinal hernia History of colonic polyps 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 Mixed hyperlipidemia Essential hypertension Chronic diastolic CHF (congestive heart failure), NYHA class 1 Chronic anticoagulation Chronic atrial fibrillation Vision disorder Fractures Positive PPD Mumps Measles Chicken pox Tinnitus Hearing loss History of urinary incontinence (~2018) Diverticular disease Crohn's disease Myocardial infarction Coronary artery disease Asthma Surgical History Hx of heart artery stent (~1994) Anesthesia H/O mitral valve replacement (~03/2017) Family History Mother Congestive heart failure Father Coronary artery disease Social History household members: spouse Smoking Status: Never smoker alcohol intake: former substance use type: does not use Type(s) of exercise: walking frequency: daily Smoking Status: Never smoker alcohol intake frequency: holidays/special occasions only Substance Use Type: does not use Exam Narrative Exam Narrative: GENERAL: Alert, cooperative and in no distress. HEAD: Atraumatic. Normocephalic. EYES: Sclera are clear without icterus. Extraocular movements are full. ENT: No rhinorrhea. NECK: Supple. Full range of motion. CARDIOVASCULAR: Normal rate and rhythm without murmur gallop or rub. RESPIRATORY: Clear to auscultation. Breath sounds equal bilaterally. No wheezes, rales, or rhonchi. GASTROINTESTINAL: Abdomen soft, non-tender, nondistended. EXTREMITIES: 2+ symmetric lower edema, full range of motion. No obvious trauma. NEURO: Nonfocal examination, normal speech SKIN: No rash or erythema of visible areas PSYCH: Normally oriented. Normal range of affect. Appropriate behavior Initial Vital Signs Initial Vital Signs: Vital Signs Temperature 97.9 F 10/03/23 04:35 Pulse Rate 101 H 10/03/23 04:35 Respiratory Rate 17 10/03/23 04:35 Blood Pressure 98/61 10/03/23 04:35 Pulse Oximetry 93 10/03/23 04:35 Oxygen Delivery Method Room Air 10/03/23 04:35 Course Orders Ordered: ED Orders 10/03/23 04:35 Complete Blood Count AUTO DIFF Stat Comprehensive Metabolic Panel Stat Lipase Stat Magnesium Stat PTT Partial Thromboplastin Long Stat Prothrombin Time INR Stat Troponin & CK Cardiac Panel Stat 10/03/23 04:39 XR chest 1V Stat EKG-12 Lead Stat Vital Signs Vital signs: Vital Signs - 8 hr 10/03/23 04:35 Temperature 97.9 F Pulse Rate 101 H Respiratory Rate 17 Blood Pressure 98/61 Pulse Oximetry 93 Oxygen Delivery Method Room Air MDM - Chest Pain Lab Data 10/03/23 04:35 10/03/23 04:35 Labs: Lab Results 10/03/23 Range/Units 04:35 WBC 3.3 L (4.5-11.0) X10^3/uL RBC 2.98 L (4.5-5.9) X10^6/uL Hgb 7.6 L (13.5-17.5) g/dL Hct 24.6 L (41-53) % MCV 82.7 (80-100) fL MCH 25.4 L (26-34) PG MCHC 30.7 (30-36) % RDW 20.3 H (11.6-14.8) % Plt Count 106 L (150-400) X10^3/uL Neut % (Auto) 58.4 (50-75) % Lymph % (Auto) 19.1 L (25-40) % [place] % (Auto) 15.9 H (3-14) % Eos % (Auto) 5.1 H (2-4) % Baso % (Auto) 1.5 (0-2) % Neut # (Auto) 1900 (5679-1672) /uL Lymph # (Auto) 600 L (3880-6411) /uL [place] # (Auto) 500 (0-900) /uL Eos # (Auto) 200 (0-450) /uL Baso # (Auto) 100 (0-100) /uL PT 19.9 H (9.4-12.5) SECONDS INR 1.7 H (0.9-1.3) APTT 37 H (25.1-36.5) SECONDS ECG Data Interpretation: ECG obtained at 4:37 a.m. shows atrial fibrillation at a rate of 99 with a QTC of 500. There is no acute ST or T-wave change. MDM Narrative Medical decision making narrative: Will admit for further work-up Dr. Maki accepts the admit Discharge Plan Departure Patient Disposition: Admitted As Inpatient Clinical Impression: Chest pain Admit Date/Time: 10/03/23 06:48 Admit Provider: Andry Maki V
[2023-10-03 04:51] LABS: INR 1.7 (0.9-1.3); Prothrombin Time 19.9 SECONDS (9.4-12.5)
[2023-10-03 04:53] LABS: PTT Partial Thromboplastin Tim 37 SECONDS (25.1-36.5)
[2023-10-03 04:57] LABS: Alanine Aminotransferase 20 IU/L (<50); Albumin 3.3 g/dL (3.5-5.0); Albumin Globulin Ratio 1.2 (1.0-2.8); Alkaline Phosphatase 74 U/L (38-126); Aspartate Aminotransferase 34 IU/L (17-59); Bilirubin Total 0.5 mg/dL (0.2-1.3); Blood Urea Nitrogen 36 mg/dL (9-20); Calcium 8.6 mg/dL (8.4-10.2); Chloride 97 mmol/L (98-107); Creatine Kinase 40 U/L (55-170); Estimated Glomerular Filt Rate > 60 mL/min (>60); Globulin 2.7 g/dL (1.7-4.1); Glucose 99 mg/dL (80-110); HEMOLYSIS 20 (0-50); Lipase 113 U/L (23-300); Magnesium 2.2 mg/dL (1.6-2.3); Potassium 3.8 mmol/L (3.4-5.1); Sodium 139 mmol/L (137-145)
[2023-10-03 05:03] LABS: Carbon Dioxide 38 mmol/L (22-32)
[2023-10-03 05:07] LABS: Troponin I < 0.012 ng/mL (0.01-0.034)
[2023-10-03 05:13] LABS: Poikilocytosis 1+
[2023-10-03 05:14] LABS: Anisocytosis 1+
[2023-10-03 05:54] LABS: Fractionated Inspired Oxygen 21; HCO3 VBG 41 mmol/L (24-28); Oxygen Saturation VBG 61 % (70-75); PO2 VBG 33 mmHg (35-45); Total CO2 VBG 43 mmol/L (24-29); pH VBG 7.41 (7.33-7.43)
[2023-10-03 06:04] LABS: NT-proBNP (BNP-Adult 18+) 2820 pg/mL (<450)
--- NOTE | 2023-10-03 07:26 | PC.NURSE ---
Pt denies having chest pain and SOB currently, reports his shortness of breath is feeling relieved while sitting up in recliner chair. Pt alert to self, situation, year, and month. He is ambulatory at home mainly just walking in the house using a cane or walker. He lives at home with spouse Shima, and multiple generations of family lives on the property. Pt states he is no longer has afib, they fixed it, and states he has had open heart surgery, something in the left ventricle. Pt does not endorse history of ablation procedure. Denies using blood thinners.
--- NOTE | 2023-10-03 07:35 | PC.NURSE ---
Pt requests I call his Italia to update her that patient has been admitted. I called Italia and informed her of patient's status.
--- NOTE | 2023-10-03 09:04 | PC.NURSE ---
Pt oxygen saturation down to 85% while sleeping. Pt instructed to take deep breathes, o2 increased to 93% on room air. Pt placed on 1L NC while sleeping. Denies using oxygen at home.
--- NOTE | 2023-10-03 10:06 | PM.HP.1 ---
History of Present Illness History of Present Illness Date Patient Seen: 10/03/23 Time Patient Seen: 10:06 Chief complaint: chest pain 2hrs Narrative: Mr. Medeiros is an 82M with PMH CHFpEF, CAD, afib who presents to the hospital with difficulty taking a breath in. Noticed this around 1am this morning. He thinks his legs are a bit more swollen recently. He denies overt chest pain, does not feel like a pressure or pain. There is no radiation of his symptoms, just simply feels like he can't take a breath in. No fever, chills, abdominal pain, nausea, or vomiting. Denies palpiatations. In the emergency room, troponin was negative, EKG without acute ischemia. CXR did not show any gross volume overload. labs notable for elevated proBNP, pancytopenia with Hg of 7.6 (slightly lower than baseline). He was admitted for further evaluation of probable CHF excaerbation. 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 Mixed hyperlipidemia Essential hypertension Chronic diastolic CHF (congestive heart failure), NYHA class 1 Chronic anticoagulation Chronic atrial fibrillation Vision disorder Fractures Positive PPD Mumps Measles Chicken pox Tinnitus Hearing loss History of urinary incontinence (~2018) Diverticular disease Crohn's disease Myocardial infarction Coronary artery disease Asthma Surgical History Hx of heart artery stent (~1994) Anesthesia H/O mitral valve replacement (~03/2017) Family History Mother Congestive heart failure Father Coronary artery disease Social History household members: spouse Smoking Status: Never smoker alcohol intake: former substance use type: does not use Type(s) of exercise: walking frequency: daily Meds Home Medications and Allergies Home Medications Medication Instructions Recorded Confirmed Type albuterol sulfate 90 mcg/actuation 2 puff INH PRN PRN Shortness Of 03/22/17 10/03/23 History aerosol inhaler (Proventil HFA) Breath ##0 mesalamine 500 mg capsule,extended 1,000 mg PO BID ##0 03/24/17 10/03/23 History release (Pentasa) ferrous sulfate 325 mg (65 mg 325 mg PO BID 05/18/18 10/03/23 History iron) tablet finasteride 5 mg tablet 5 mg PO DAILY 05/18/18 10/03/23 History simvastatin 40 mg tablet 20 mg PO BEDTIME 12/07/21 10/03/23 History omeprazole 20 mg tablet,delayed 20 mg PO DAILY 04/24/22 10/03/23 History release isosorbide mononitrate 60 mg 30 mg PO DAILY 01/13/23 10/03/23 History tablet,extended release 24 hr tamsulosin 0.4 mg capsule 0.4 mg PO DAILY #90 caps 03/04/23 10/03/23 Rx apixaban 5 mg tablet (Eliquis) 5 mg PO BID #180 tabs 03/20/23 10/03/23 Rx potassium chloride 20 mEq 40 meq (2 x 20 mEq) PO TID #360 04/28/23 10/03/23 Rx tablet,extended release tabs torsemide 100 mg tablet 100 mg PO DAILY PRN Weight Gain 05/01/23 10/03/23 History carvedilol 3.125 mg tablet 3.125 mg PO BID #180 tabs 06/23/23 10/03/23 Rx acetaminophen 500 mg tablet 1,000 mg (2 x 500 mg) PO Q8H #90 08/12/23 10/03/23 Rx (Tylenol Extra Strength) tabs pregabalin 25 mg capsule 25 mg PO TID #90 caps 09/25/23 10/03/23 Rx Allergies Allergy/AdvReac Type Severity Reaction Status Date / Time iodine Allergy Severe Blotches Verified 09/25/23 14:12 all over my body ibuprofen Allergy Mild NOT GOOD Verified 09/25/23 14:12 FOR STOMACH BLEEDING Sulfa (Sulfonamide Allergy Mild BURNED A Verified 09/25/23 14:12 Antibiotics) HOLE THRU INTESTINES thallium-201 Allergy Mild BREAKS OUT Verified 09/25/23 14:12 IN BLOTCHES AND ITCHING terazosin Allergy Hypotension Verified 09/25/23 14:12 spironolactone AdvReac Verified 09/25/23 14:12 Review of Systems Review of Systems Narrative: All other systems reviewed with the patient and are negative unless otherwise stated. Exam Vital Signs (past 8 hours): - 10/03/23 04:31 10/03/23 04:32 10/03/23 04:35 Temperature 97.9 F Pulse Rate 101 H 101 H Respiratory Rate 25 H 17 Blood Pressure 98/61 98/61 Pulse Oximetry 93 93 Oxygen Delivery Method Room Air Room Air Oxygen Flow Rate 10/03/23 05:00 10/03/23 05:00 10/03/23 05:30 Temperature Pulse Rate 96 H 93 H Respiratory Rate 25 H 22 Blood Pressure 105/76 Pulse Oximetry 93 92 Oxygen Delivery Method Room Air Oxygen Flow Rate 10/03/23 05:32 10/03/23 05:32 10/03/23 06:00 Temperature Pulse Rate 96 H 93 H Respiratory Rate 22 23 Blood Pressure 116/71 Pulse Oximetry 93 94 Oxygen Delivery Method Room Air Room Air Oxygen Flow Rate 10/03/23 06:00 10/03/23 06:30 10/03/23 06:30 Temperature Pulse Rate 98 H Respiratory Rate 14 Blood Pressure 106/66 102/61 Pulse Oximetry 93 Oxygen Delivery Method Room Air Oxygen Flow Rate 10/03/23 07:00 10/03/23 07:00 10/03/23 07:30 Temperature Pulse Rate 98 H Respiratory Rate 24 Blood Pressure 112/75 105/65 Pulse Oximetry 92 Oxygen Delivery Method Room Air Oxygen Flow Rate 10/03/23 07:30 10/03/23 08:00 10/03/23 08:00 Temperature Pulse Rate 97 H 93 H Respiratory Rate 20 22 Blood Pressure 100/66 Pulse Oximetry 93 95 Oxygen Delivery Method Room Air Room Air Oxygen Flow Rate 10/03/23 08:30 10/03/23 09:00 10/03/23 09:00 Temperature Pulse Rate 98 H 94 H Respiratory Rate 20 14 Blood Pressure 109/70 Pulse Oximetry 92 93 Oxygen Delivery Method Room Air Room Air Oxygen Flow Rate 10/03/23 09:03 10/03/23 09:04 10/03/23 09:30 Temperature Pulse Rate 93 H Respiratory Rate 11 L Blood Pressure Pulse Oximetry 85 L 96 95 Oxygen Delivery Method Room Air Nasal Cannula Nasal Cannula Oxygen Flow Rate 1 1 Oxygen Delivery Method Nasal Cannula Oxygen Flow Rate 1 Narrative Exam Narrative: General:? Patient is a well-developed, elderly male in distress this morning prior to diuresis. HEENT:? Normocephalic, atraumatic, extraocular muscles intact Chest: Equal chest rise without nasal flaring, retractions, tachypneic or labored breathing. Crackles at bases. Lungs:? Auscultation of all lung [place] are clear except for crackles at bases. Cardio: irregular rate and rhythm normal S1 & S2 Abdomen: S NT ND Musculoskeletal:? Muscle strength and tone are equal, effusion right knee and associated pain. Improving pain level. Skin:? Warm dry and intact without rashes or lesions.? Neuro:? Alert and orientated x3, moves all extremities, sensation to touch intact Psych:? Patient has appropriate affect, mental status attitude thought context and judgment are appropriate for age Objective Labs 10/03/23 04:35 10/03/23 04:35 Labs: Laboratory Results - last 24 hr 10/03/23 10/03/23 04:35 05:37 WBC 3.3 L RBC 2.98 L Hgb 7.6 L Hct 24.6 L MCV 82.7 MCH 25.4 L MCHC 30.7 RDW 20.3 H Plt Count 106 L Neut % (Auto) 58.4 Lymph % (Auto) 19.1 L [place] % (Auto) 15.9 H Eos % (Auto) 5.1 H Baso % (Auto) 1.5 Neut # (Auto) 1900 Lymph # (Auto) 600 L [place] # (Auto) 500 Eos # (Auto) 200 Baso # (Auto) 100 RBC Morphology See below Poikilocytosis 1+ H Anisocytosis 1+ H PT 19.9 H INR 1.7 H APTT 37 H VBG pH 7.41 VBG pCO2 64.0 H VBG pO2 33 L VBG HCO3 41 H VBG Total CO2 43 H VBG O2 Saturation 61 L VBG Base Excess 16.0 H FiO2 21 Sodium 139 Potassium 3.8 Chloride 97 L Carbon Dioxide 38 H BUN 36 H Creatinine 0.75 Estimated GFR > 60 BUN/Creatinine Ratio 48.0 H Glucose 99 Calcium 8.6 Magnesium 2.2 Total Bilirubin 0.5 AST 34 ALT 20 Alkaline Phosphatase 74 Total Creatine Kinase 40 L Troponin I < 0.012 NT-Pro-B Natriuret Pep 2820 H Total Protein 6.0 L Albumin 3.3 L Globulin 2.7 Albumin/Globulin Ratio 1.2 Lipase 113 Assessment & Plan Assessment & Plan narrative: #Acute on chronic Diastolic heart failure - presume symptoms are related to heart failure exacerbation. - will diurese with 40 mg IV lasix BID. - continue to follow electrolytes with diuresis and renal function. - TTE already done, EF around 50%, no significant changes to prior TTEs but does appear to be volume overloaded. - if no improvement with diuresis, alternative etiology includes silghtly worsened anemia and could consider transfusion. Will also monitor h/h. - with negative troponins, and EKG ACS ruled out. Do not feel this in angina at this time, but can consider stress testing depending on progression, though this is not available over the weekend at [facility]. #Atrial fibrillation, active, chronic/permanent, on apixaban, present on admission - continue home coreg, apixaban #CAD, chronic, pulmonary hypertension, present on admission - continue home apixaban, replace home statin for formulary equivalent. #BPH, active, chronic, present on admission - continue home flomax. #Crohn's colitis disease/IBD, chronic, present on admission Continue mesalamine #Hyperlipidemia, mixed, chronic, present on admission continue simvastatin 20 mg #Pancytopenia, chronic Continue ferrous sulfate #Osteoarthritis, with muscle spasms, chronic, present on admission Continue Flexeril #GERD, chronic, present on admission Continue PPI #Obesity, moderate, acute on chronic, present on admission As evidence by BMI 37 dietary consult ordered regarding nutritional education and information for dietary, lifestyle, exercise, and weight changes. the patient is at much higher risk for medical and surgical complications due to obesity as it relates to chronic illnesses:, and acute illness. The patient's obesity increases the difficulty and complexity of medical and/or surgical interventions, management and increases the chances of poor outcome such as morbidity and mortality as well as impaired wound healing. Code status:Full Surrogate decision maker: Italia Medeiros DVT/VTE prophylaxis: Coumadin Disposition: Admit observation, possible discharge home tomorrow if improvement in breathing symptoms. I have utilized all available immediate resources to obtain, update, or review the patient's current medications. Additional history obtained from discussion with the overnight tele-hospitalist, and discussion contributed to the above assessment and plan. EKG, radiographs, and admission labs along with prior admission documentation was reviewed.
--- NOTE | 2023-10-03 10:08 | DI.ECHO.S_ITS ---
[facility] +[facility]+ : : [address] : : : : [id number] : : : : Phone: [phone] Echocardiogram Report + + :Name: NURIS MILAN Study Date: 10/03/2023 Height: 63 in : :[facility] ReadingLocation: Weight: 158 lb : : Gender: Male BSA: 1.7 m2 : :: 1940 Age: 83 yrs BP: 101/76 mmHg: :Reason For Study: CONGESTIVE HEART FAILURE : :Ordering Physician: ITZEL, : :ZOEY RENEE Performed By: Fiona Avitia : :Referring: ZOEY ROBBINS : + + Interpretation Summary There is mild-moderate concentric left ventricular hypertrophy. The ejection fraction is estimated to be 50-55%. Diastolic function could not be accurately assessed due to atrial fibrillation. The interventricular septum is flattened, consistent with a right ventricular pressure/volume condition. The right ventricle is severely dilated. Right ventricular systolic function is moderate to severely reduced. There is severe biatrial enlargement. There is mild to moderate mitral regurgitation. There is moderate aortic stenosis. There is mild aortic regurgitation. There is severe tricuspid regurgitation. The right ventricular systolic pressure is estimated to be at least 62 mmHg based on an estimated right atrial pressure of 15 mm Hg. This may be an underestimation due to the severity of TR. Compared to the prior study dated 01/17/2023, the left ventricle is less dynamic. Procedure: A two-dimensional transthoracic echocardiogram with color flow and Doppler was performed. The study quality was technically adequate. Comparison is made with the echocardiogram of 01/17/2023. The patient was in atrial fibrillation with heart rates between 76-95 bpm during the exam. Left Ventricle: The left ventricle is normal in size. There is mild-moderate concentric left ventricular hypertrophy. The ejection fraction is estimated to be 50-55%. The interventricular septum is flattened, consistent with a right ventricular pressure/volume condition. Diastolic function could not be accurately assessed due to atrial fibrillation. Right Ventricle: The right ventricle is severely dilated. Right ventricular systolic function is moderate to severely reduced. Atria: There is severe biatrial enlargement. There is no Doppler evidence for an interatrial shunt. Mitral Valve: There is moderate mitral annular calcification. The mitral valve leaflets are moderately calcified. The mitral valve mean gradient is 4.1 mmHg. There is mild to moderate mitral regurgitation. Aortic Valve: The aortic valve is trileaflet. The aortic valve is moderately calcified. There is mild to moderately reduced leaflet mobility. The peak aortic velocity is 2.2 m/sec. The aortic valve mean gradient is 11 mmHg. The calculated aortic valve area is 1.2 cm2. The dimensionless index is 0.33. There is moderate aortic stenosis. There is mild aortic regurgitation. Tricuspid Valve: Tricuspid leaflets are thickened. There is severe tricuspid regurgitation. The right ventricular systolic pressure is estimated to be at least 62 mmHg based on an estimated right atrial pressure of 15 mm Hg. Pulmonic Valve: The pulmonic valve leaflets are thin and pliable; valve motion is normal. There is moderate pulmonic regurgitation. Great Vessels: The aortic root is normal size. The dimensions of the ascending aorta are normal. The IVC is dilated (diameter is greater than 2.1 cm) and it collapses less than 50% with a sniff. This suggests a high right atrial pressure of 15 mm Hg. Pericardium/ Pleura There is no pericardial effusion. There is no pleural effusion. MMode/2D Measurements & Calculations LVIDd: 4.4 cm LVOT diam: 2.2 cm LVIDs: 3.3 cm Ao root diam: 3.4 cm FS: 24.0 % asc Aorta Diam: 3.5 cm IVSd: 1.3 cm Ao Arch Diam (Prox Trans): 3.1 cm LVPWd: 1.0 cm LV gutierrez. diameter/BSA (cm/m^2): 2.5 LV sys. diameter/BSA (cm/m^2): 1.9 LA A2 area: 29.8 cm2 RA long axis: 7.3 cm LA A4 area: 32.0 cm2 RA area: 32.2 cm2 LA length (vol): 7.0 cm RA vol: 121.0 ml LA vol: 115.8 ml RA : 69.2 ml/m2 LA vol index: 66.2 ml/m2 IVC diam: 3.3 cm RVD1 (basal): 5.9 cm RVD2 (mid): 4.4 cm TAPSE: 1.4 cm Doppler Measurements & Calculations Ao V2 max: 212.1 cm/sec LVOT Max Justino: 72.2 cm/sec Ao V2 mean: 146.2 cm/sec LV V1 max P.1 mmHg Ao max P.5 mmHg LV V1 VTI: 13.2 cm Ao mean P.3 mmHg MILDRED(I,D): 1.2 cm2 Ao V2 VTI: 39.7 cm MILDRED(V,D): 1.2 cm2 sev ratio: 0.33 MILDRED indexed to BSA (cm^2/m^2): 0.69 MV E max justino: 154.9 cm/sec TR max justino: 344.3 cm/sec MV A max justino: 0.99 cm/sec TR max P.4 mmHg MV E/A: 156.2 PA V2 max: 113.6 cm/sec Med Peak E' Justino: 5.3 cm/sec PA V2 mean: 66.9 cm/sec E/E' med: 29.2 PA mean P.1 mmHg Lat Peak E' Justino: 7.7 cm/sec E/E' lat: 20.2 E/e' average: 24.7 MV dec time: 0.15 sec MVA(VTI): 1.7 cm2 MV V2 mean: 89.3 cm/sec SV(LVOT): 48.0 ml MV mean P.1 mmHg MV V2 VTI: 27.5 cm Reading Physician:01:32 PM
[2023-10-03 10:11] LABS: Troponin I < 0.012 ng/mL (0.01-0.034)
[2023-10-03 11:22] LABS: Troponin I 0.012 ng/mL (0.01-0.034)
--- NOTE | 2023-10-03 11:38 | PC.NURSE ---
Patient is alert and oriented x3. Medication list faxed from daughter to here and has been updated. Patient is resting at this time, his bs are cta, he is on 1L of o2 and sats are mid 90s. Patient does have 3+ edema to his lower extremities and feet. is aware of this.
[2023-10-03] MEDS: FUROSEMIDE 40 MG/4 ML VIAL IV ×2 (11:48→18:13)
[2023-10-03] MEDS: carvediloL 3.125 MG TABLET PO ×2 (13:18→20:17)
[2023-10-03] MEDS: PREGABALIN 25 MG CAPSULE PO ×2 (14:55→20:18)
[2023-10-03] MEDS: POTASSIUM CHLORIDE 20 MEQ TAB 40 MEQ PO ×2 (14:55→20:17)
[2023-10-03 17:01] LABS: Troponin I < 0.012 ng/mL (0.01-0.034)
[2023-10-03 18:14] LABS: Hematocrit 27.9 % (41-53); Hemoglobin 8.5 g/dL (13.5-17.5)
[2023-10-03] MEDS: ATORVASTATIN 20 MG TABLET 40 MG PO (20:18)
[2023-10-03] MEDS: APIXABAN 5 MG TABLET PO (20:18)
[2023-10-04] VITALS (13 sets, daily range): BP systolic 92–115; BP diastolic 58–78; PULSE 82–105; RESP 16–20; TEMP 36.2–37; O2SAT 90–99
[2023-10-04 05:16] LABS: Add Manual Diff / Slide Review NO; Basophils Absolute Auto 0 /uL (0-100); Basophils Percent Auto 0.8 % (0-2); Eosinophils Absolute Auto 200 /uL (0-450); Eosinophils Percent Auto 4.6 % (2-4); Hematocrit 26.3 % (41-53); Hemoglobin 8.1 g/dL (13.5-17.5); Lymphocytes Absolute Auto 600 /uL (1100-4500); Lymphocytes Percent Auto 17.4 % (25-40); Mean Corpuscular HGB Conc 30.7 % (30-36); Mean Corpuscular Hemoglobin 25.7 PG (26-34); Mean Corpuscular Volume 83.6 fL (80-100); Monocytes Absolute Auto 500 /uL (0-900); Monocytes Percent Auto 13.9 % (3-14); Neutrophils Absolute Auto 2100 /uL (1500-7000); Neutrophils Percent Auto 63.3 % (50-75); Platelet Count 106 X10^3/uL (150-400); Red Blood Cell Count 3.15 X10^6/uL (4.5-5.9); Red Cell Distribution Width 19.4 % (11.6-14.8); White Blood Cell Count 3.3 X10^3/uL (4.5-11.0)
--- NOTE | 2023-10-04 05:22 | PC.NURSE ---
Pt had 6 beats of Vtach. Notified Dr. Maki. No new orders. Pt is asymptomatic.
[2023-10-04 05:25] LABS: BUN Creatinine Ratio 35.9 (6-22); Blood Urea Nitrogen 28 mg/dL (9-20); Calcium 8.8 mg/dL (8.4-10.2); Chloride 97 mmol/L (98-107); Estimated Glomerular Filt Rate > 60 mL/min (>60); Glucose 89 mg/dL (80-110); HEMOLYSIS < 15 (0-50); Magnesium 2.2 mg/dL (1.6-2.3); Potassium 3.9 mmol/L (3.4-5.1); Sodium 139 mmol/L (137-145)
[2023-10-04 05:31] LABS: Carbon Dioxide 38 mmol/L (22-32)
[2023-10-04] MEDS: FUROSEMIDE 40 MG/4 ML VIAL IV ×2 (06:27→18:22)
--- NOTE | 2023-10-04 06:33 | PC.NURSE ---
BP has been soft throughout shift, latest BP 109/72. Notified and he okayed the 40 lasix IV this morning.
--- NOTE | 2023-10-04 08:03 | P.DS_ITS ---
History of Present Illness History of Present Illness Date Patient Seen: 10/04/23 Chief complaint: chest pain 2hrs Discharge Providers Provider Date of admission: 10/03/23 06:48 Primary care physician: Barrera Roth MD Discharge provider: Wes Santamaria MD Exam Vital Signs (past 8 hours): - 10/04/23 00:55 10/04/23 04:00 10/04/23 05:23 Temperature 97.9 F Pulse Rate 93 H Respiratory Rate 17 Blood Pressure 99/64 Pulse Oximetry 96 92 93 Oxygen Delivery Method Nasal Cannula Nasal Cannula Oxygen Flow Rate 2 10/04/23 06:32 Temperature Pulse Rate Respiratory Rate Blood Pressure 109/72 Pulse Oximetry Oxygen Delivery Method Oxygen Flow Rate Oxygen Delivery Method Nasal Cannula Oxygen Flow Rate 2 Objective Labs 10/04/23 04:45 10/04/23 04:45 Labs: Laboratory Results - last 24 hr 10/03/23 10/03/23 10/03/23 09:40 10:50 16:25 WBC RBC Hgb Hct MCV MCH MCHC RDW Plt Count Neut % (Auto) Lymph % (Auto) [place] % (Auto) Eos % (Auto) Baso % (Auto) Neut # (Auto) Lymph # (Auto) [place] # (Auto) Eos # (Auto) Baso # (Auto) Sodium Potassium Chloride Carbon Dioxide BUN Creatinine Estimated GFR BUN/Creatinine Ratio Glucose Calcium Magnesium Troponin I < 0.012 0.012 < 0.012 10/03/23 10/04/23 18:08 04:45 WBC 3.3 L RBC 3.15 L Hgb 8.5 L 8.1 L Hct 27.9 L 26.3 L MCV 83.6 MCH 25.7 L MCHC 30.7 RDW 19.4 H Plt Count 106 L Neut % (Auto) 63.3 Lymph % (Auto) 17.4 L [place] % (Auto) 13.9 Eos % (Auto) 4.6 H Baso % (Auto) 0.8 Neut # (Auto) 2100 Lymph # (Auto) 600 L [place] # (Auto) 500 Eos # (Auto) 200 Baso # (Auto) 0 Sodium 139 Potassium 3.9 Chloride 97 L Carbon Dioxide 38 H BUN 28 H Creatinine 0.78 Estimated GFR > 60 BUN/Creatinine Ratio 35.9 H Glucose 89 Calcium 8.8 Magnesium 2.2 Troponin I [facility] Medical History Lumbar compression fracture Lumbar spondylosis Anemia Right inguinal hernia History of colonic polyps 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 Mixed hyperlipidemia Essential hypertension Chronic diastolic CHF (congestive heart failure), NYHA class 1 Chronic anticoagulation Chronic atrial fibrillation Vision disorder Fractures Positive PPD Mumps Measles Chicken pox Tinnitus Hearing loss History of urinary incontinence (~2018) Diverticular disease Crohn's disease Myocardial infarction Coronary artery disease Asthma Surgical History Hx of heart artery stent (~1994) Anesthesia H/O mitral valve replacement (~03/2017) Family History Mother Congestive heart failure Father Coronary artery disease Social History household members: spouse Smoking Status: Never smoker alcohol intake: former substance use type: does not use Type(s) of exercise: walking frequency: daily Discharge Plan Discharge Plan Patient Disposition: Home Discharge orders & Medications Prescriptions: No Action albuterol sulfate [Proventil HFA] 90 MCG/PUFF HFA aerosol inhaler 2 puff INH PRN PRN (Reason: Shortness Of Breath) Qty: 0 Patient Comments: no longer taking mesalamine [Pentasa] 500 MG capsule, extended release 1,000 mg PO BID Qty: 0 Patient Comments: not sure if he is taking tamsulosin 0.4 mg capsule 0.4 mg PO DAILY Qty: 90 3RF potassium chloride 20 mEq tablet extended release 40 meq PO TID Qty: 360 1RF carvedilol 3.125 mg tablet 3.125 mg PO BID Qty: 180 3RF Rx Instructions: must administer with a meal/food simvastatin 40 mg tablet 20 mg PO BEDTIME omeprazole 20 mg tablet,delayed release (DR/EC) 20 mg PO DAILY Patient Comments: pt does not recognize this med Eliquis 5 mg tablet 5 mg PO BID Qty: 180 3RF Rx Instructions: pt does not recognize acetaminophen [Tylenol Extra Strength] 500 mg tablet 1,000 mg PO Q8H Qty: 90 0RF ferrous sulfate 325 mg (65 mg iron) Tablet 325 mg PO BID Rx Instructions: no longer taking this finasteride 5 mg Tablet 5 mg PO DAILY Patient Comments: not sure if he is taking torsemide 100 mg Tablet 100 mg PO DAILY PRN (Reason: Weight Gain) isosorbide mononitrate 60 mg Tablet Extended Release 24 Hr 30 mg PO DAILY Rx Instructions: unsure if he is taking pregabalin 25 mg capsule 25 mg PO TID Qty: 90 1RF Rx Instructions: 1 PO QHS x3 days If tolerated, 1 PO BID x3 days If tolerated, 1 PO TID Follow up/Referrals: Barrera Roth MD [Primary Care Provider] - Visit Report/Discharge Packet Stand Alone Forms: Patient Portal/API, Stroke Signs & Symptoms Discharge Data Primary Care Provider: Barrera Roth V Attending Provider: Andry Maki V Admit Date/Time: 10/03/23 06:48
[2023-10-04] MEDS: FINASTERIDE 5 MG TABLET PO (09:42)
[2023-10-04] MEDS: POTASSIUM CHLORIDE 20 MEQ TAB 40 MEQ PO ×3 (09:42→20:23)
[2023-10-04] MEDS: PREGABALIN 25 MG CAPSULE PO ×3 (09:43→20:23)
[2023-10-04] MEDS: TAMSULOSIN 0.4 MG CAPSULE PO (09:43)
[2023-10-04] MEDS: FERROUS SULFATE 325 MG TABLET PO (09:43)
[2023-10-04] MEDS: carvediloL 3.125 MG TABLET PO ×2 (09:43→20:24)
[2023-10-04] MEDS: ISOSORBIDE MONONITRATE ER 30 MG TABLET PO (09:44)
[2023-10-04] MEDS: APIXABAN 5 MG TABLET PO ×2 (09:44→20:24)
[2023-10-04] MEDS: MESALAMINE 400 MG CAP.DRTAB. 800 MG PO ×2 (11:19→20:23)
--- NOTE | 2023-10-04 15:13 | P.PN_ITS ---
Subjective Subjective Interval history: He is seen today to follow-up his CHF and hypoxia with weakness. His oxygen saturation was 95% on room air but then as the morning progressed and he was more active it dropped to 85% and 2 L oxygen nasal cannula was again applied. He tells me that his primary care physician is Dr. Roth. He lives in a trailer home with his who is in poor health. Other relatives live nearby and help out. He is not on home oxygen. The white blood count is 3.3 with a hemoglobin of 8.1. Exam Vital Signs (past 8 hours): - 10/04/23 09:00 10/04/23 09:00 10/04/23 09:43 Temperature 97.8 F Pulse Rate 101 H 101 H Respiratory Rate 16 Blood Pressure 99/71 99/71 Pulse Oximetry 90 L 95 Oxygen Delivery Method Room Air Oxygen Flow Rate 0 1.5 10/04/23 12:09 Temperature 98.1 F Pulse Rate 82 Respiratory Rate 18 Blood Pressure 92/58 L Pulse Oximetry 98 Oxygen Delivery Method Oxygen Flow Rate 1.5 Oxygen Delivery Method Room Air Oxygen Flow Rate 1.5 Narrative Exam Narrative: He is alert and oriented x3. No apparent distress. He is quite weak. Heart is irregularly irregular without murmur. Lungs are clear to auscultation bilaterally. Extremities have no ankle edema. Objective Labs 10/04/23 04:45 10/04/23 04:45 Labs: Laboratory Results - last 24 hr 10/03/23 10/03/23 10/04/23 16:25 18:08 04:45 WBC 3.3 L RBC 3.15 L Hgb 8.5 L 8.1 L Hct 27.9 L 26.3 L MCV 83.6 MCH 25.7 L MCHC 30.7 RDW 19.4 H Plt Count 106 L Neut % (Auto) 63.3 Lymph % (Auto) 17.4 L [place] % (Auto) 13.9 Eos % (Auto) 4.6 H Baso % (Auto) 0.8 Neut # (Auto) 2100 Lymph # (Auto) 600 L [place] # (Auto) 500 Eos # (Auto) 200 Baso # (Auto) 0 Sodium 139 Potassium 3.9 Chloride 97 L Carbon Dioxide 38 H BUN 28 H Creatinine 0.78 Estimated GFR > 60 BUN/Creatinine Ratio 35.9 H Glucose 89 Calcium 8.8 Magnesium 2.2 Troponin I < 0.012 [facility] Medical History Lumbar compression fracture Lumbar spondylosis Anemia Right inguinal hernia History of colonic polyps 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 Mixed hyperlipidemia Essential hypertension Chronic diastolic CHF (congestive heart failure), NYHA class 1 Chronic anticoagulation Chronic atrial fibrillation Vision disorder Fractures Positive PPD Mumps Measles Chicken pox Tinnitus Hearing loss History of urinary incontinence (~2018) Diverticular disease Crohn's disease Myocardial infarction Coronary artery disease Asthma Surgical History Hx of heart artery stent (~1994) Anesthesia H/O mitral valve replacement (~03/2017) Family History Mother Congestive heart failure Father Coronary artery disease Social History household members: spouse Smoking Status: Never smoker alcohol intake: former substance use type: does not use Type(s) of exercise: walking frequency: daily Assessment & Plan Assessment & Plan narrative: #Acute on chronic Diastolic heart failure - presume symptoms are related to heart failure exacerbation. - continue on 40 mg IV lasix BID. - continue to follow electrolytes with diuresis and renal function. - TTE already done, EF around 50%, no significant changes to prior TTEs but does appear to be volume overloaded. - if no improvement with diuresis, alternative etiology includes silghtly worsened anemia and could consider transfusion. Will also monitor h/h. - with negative troponins, and EKG ACS ruled out. Do not feel this in angina at this time, but can consider stress testing depending on progression, though this is not available over the weekend at [facility]. #Normocytic Anemia - Hgb 8.5 on admission, 8.1 on 10/04/23 - This is in his chronic usual range, going back to 2022. - Continue outpatient PCP management #Atrial fibrillation, active, chronic/permanent, on apixaban, present on admission - continue home coreg, apixaban #CAD, chronic, pulmonary hypertension, present on admission - continue home apixaban, replace home statin with formulary equivalent. #BPH, active, chronic, present on admission - continue home flomax. #Crohn's colitis disease/IBD, chronic, present on admission * Continue mesalamine #Hyperlipidemia, mixed, chronic, present on admission * continue simvastatin 20 mg #Pancytopenia, chronic * Continue ferrous sulfate #Osteoarthritis, with muscle spasms, chronic, present on admission * Continue Flexeril #GERD, chronic, present on admission * Continue PPI #Obesity, moderate, acute on chronic, present on admission * As evidence by BMI 37 * dietary consult ordered regarding nutritional education and information for dietary, lifestyle, exercise, and weight changes. * the patient is at much higher risk for medical and surgical complications due to obesity as it relates to chronic illnesses:, and acute illness. The patient's obesity increases the difficulty and complexity of medical and/or surgical interventions, management and increases the chances of poor outcome such as morbidity and mortality as well as impaired wound healing. Code status:Full Surrogate decision maker: Italia Medeiros DVT/VTE prophylaxis: Coumadin Disposition: possible discharge home tomorrow if improvement in breathing symptoms.
--- NOTE | 2023-10-04 15:20 | PT.IIE ---
Surgical History (Last Reviewed 09/25/23 @ 15:20 by Rogerio Driver MD) Anesthesia H/O mitral valve replacement (~03/2017) Hx of heart artery stent (~1994) Medical History (Last Reviewed 09/25/23 @ 15:20 by Rogerio Driver MD) Anemia Asthma BPH w urinary obs/LUTS Chicken pox Chronic anticoagulation Chronic atrial fibrillation Chronic diastolic CHF (congestive heart failure), NYHA class 1 Coronary artery disease Crohn's disease Diverticular disease Essential hypertension Fractures Hearing loss History of colonic polyps History of urinary incontinence (~2018) Lumbar compression fracture Lumbar spondylosis Measles Mixed hyperlipidemia Mumps Myocardial infarction Positive PPD Primary osteoarthritis involving multiple joints Right inguinal hernia Tinnitus Vision disorder Physical Therapy Inpatient Evaluation/Re-Eval M1 PT/OT-IP Prior Functional Status Start: 10/04/23 15:55 Freq: NEEDED Status: Active Protocol: Document 10/04/23 15:20 AB (Rec: 10/04/23 16:08 AB [id number]) Medical Review Prior Functional Status Medical History Reviewed Yes Communication able to make needs known; ILIAMNA Mobility and Gait pt statd that he was modified independent with all mobilities and ambulation using a 4WW Prior Functional Level (Other details) pt has condom catheter and stated that he is able to manage catheter by himself Social History Household Members spouse Living Arrangements House Number of Floors (Floors) One Floor Number of Stairs To Enter/Railing? 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; stated that his children live around his property (mobile homes) and will be able to assist him if needed M2 PT-IP Current Condition Start: 10/04/23 15:55 Freq: NEEDED Status: Active Protocol: Document 10/04/23 15:20 AB (Rec: 10/04/23 16:08 AB [id number]) Physical Therapy Current Condition Current Condition Evaluation Date 10/04/23 Treatment Diagnosis CHF; difficulty in walking Onset Date 10/03/23 M3 PT-IP Subjective Start: 10/04/23 15:55 Freq: NEEDED Status: Active Protocol: Document 10/04/23 15:20 AB (Rec: 10/04/23 16:08 AB [id number]) Subjective Physical Therapy Visit Type Type Initial Evaluation Visit Start Time 15:20 Visit Stop Time 15:55 Number of [employer] Visits 0 Physical Therapy Visit Comments Patient Comments requesting to use the toilet M4 PT-IP Mobility and Gait Start: 10/04/23 15:55 Freq: NEEDED Status: Active Protocol: Document 10/04/23 15:20 AB (Rec: 10/04/23 16:08 [id number]) PT-Bed Mobility Assessment Supine to Sit Supine to Sit Minimal Assistance,Head of Bed Elevated,Bedrails PT-Transfer Assessment Sit to and From Stand Sit to and from Stand Moderate Assistance,1 Person Assistance,Use of Upper Extremities Equipment Transfer Assistive Device Gait Belt,Front Wheeled Walker Orthotic/Prosthetic Devices or Brace: No Transfers Transfer Destination Toilet Transfer Technique ambulated Transfer Ability Level of Assist Minimal Assistance,1 Person Assistance,Use of Upper Extremities Comments Mobility Comments checked with nurse and stated that pt is using 1-2L/min O2 in hospital but does not use supplemental O2 at home. checked on pt and pt in bed. pt stated that he has to use the toilet. pt can be impulsive. unable to check vitals due to pt's urgency to get up and use the toilet. completed supine to sit with bed elevated min A and cues. pt with stooped posture. completed sit to stand mod A and max cues. pt tends to pull on FWW to stand. ambulated to the toilet using FWW min A and cues. NAC came in to assist. pt needing to be cleaned up/brief and gown changed. Condom cath is not working and NAC needing to change. pt completed sit to stand from the toilet using grab bar and pt pulling on FWW to get up. refused PT to reposition FWW for safety. mod A for sit to stand and cues. pt ambulated to the chair using FWW CGA to min A. positioned pt on the chair. call light and table placed within reach. obtained PLOF and home set up from pt. informed pt regarding d/c plan and stated that one of his children will be able to assist him. informed regarding HHPT and pt stated that he had it before and does not want HHPT. Gait Assessment Gait Gait Assistance Required: Contact Guard Assist,Minimum Assistance Distance (Feet) 12 Able to Maintain Weight Bearing Status Yes During Gait Assistive Devices Assistive Device Gait Belt,Front Wheeled Walker Orthotic/Prosthetic Devices or Brace: No Gait Deviations General Gait Pattern Decreased Stride Length, Decreased Feet Clearance,Step- to Gait Factors Limiting Gait Function Factors Limiting Gait Function Decreased Activity Tolerance, Decreased Strength,Difficulty Following Directions,Limited Range of Motion,Poor Balance, Poor Safety Awareness, Respiratory Distress PT-Balance Assessment Sitting Balance and Reactions Static Sitting Balance Ability Good Dynamic Sitting Balance Ability Fair Standing Balance and Reactions Static Standing Balance Ability Fair Dynamic Standing Balance Ability Poor Device Used FWW M5 PT-IP Objective Assessments Start: 10/04/23 15:55 Freq: NEEDED Status: Active Protocol: Document 10/04/23 15:20 AB (Rec: 10/04/23 16:08 AB [id number]) Orientation Orientation/Cognition Level of Alertness Alert Orientation Name Language Function Ability Hard of Hearing Safety Awareness Decreased Safety Awareness Memory Description Short Term Impaired Comments pt is impulsive Muscle Tone Muscle Tone WNL Yes M6 PT-IP Treatment Start: 10/04/23 15:55 Freq: NEEDED Status: Active Protocol: Document 10/04/23 15:20 AB (Rec: 10/04/23 16:08 AB [id number]) Physical Therapy Treatment Education Education Provided Safety M7 PT-IP Assessment and Plan Start: 10/04/23 15:55 Freq: NEEDED Status: Active Protocol: Document 10/04/23 15:20 AB (Rec: 10/04/23 16:08 AB [id number]) PT Summary Assessment and Plan Potential Rehabilitation Potential Fair Status of Condition at Evaluation Evolving Summary Impairments Pain,ROM,Strength,Balance, Coordination,Sensation,Tone, Cognition,Bed Mobility, Transfers,Gait,Activity Tolerance Assessment Summary pt is an 83 y/o M who presented to the ED for c/o chest pain. pt admitted for CHF. pt requiring min A for bed mobility, mod A for sit to stand and CGA to min A with short distance ambulation using FWW. pt with decrease activity tolerance and needing supplemental O2 at this time. pt lives with spouse but pt is the caregiver for his spouse. pt stated that one of his children that lives around his property will be able to assist him. pt will benefit from HHPT. will continue to assess progress. Goals Bed Mobility Goal Independent Transfer Goal Independent,Front Wheeled Walker Gait Goal Independent,Front Wheel Walker Gait Distance 100 Other Goals improve transfers and ambulation using 4WW/LRAD 200 ft SBA Days to Meet Goals 10 Frequency of Treatment Frequency Of Treatment Once a Day Treatment Plan Physical Therapy Treatment Plan Bed Mobility Training,Transfer Training,Gait Training, Therapeutic Exercise,Balance Retraining,Discharge Planning, Hot or Cold Pack,Neuromuscular Re-ed,Coordination Retraining Precautions Other Precautions falls; O2 sat Recommendations To Nursing Amount of Assist Needed 1 Person Assist Discharge Recommendations PT Discharge Recommendations Home with 24/ Assist Available,Home Health Equipment Needed for Home Before FWW if not safe with 4WW Discharge Transportation Needs at Discharge Private Vehicle,Wheelchair/ Cabulance
--- NOTE | 2023-10-04 15:46 | CM.DANOTE ---
Patient is an 83 yo male who was admitted OBS 10/03/23 and switched Inpt for CHF, anemia, hypoxia. Pt has [facility] and [employer] for insurance and his PCP is Dr. Barrera Roth. EMR was reviewed. Per MD, pt with CHF, anemia, continuing to desat and requiring oxygen and not yet stable for discharge. Per RN, pt has been surprisingly able to ambulate once up and has been sleeping most of the day. SW met bedside briefly with pt and explained role and he confirms he lives in [place] with spouse in a mobile home and Dtr/SANJU next door and are very supportive and DPOA is spouse and Dtr. Patient uses canes/walker at home at baseline. Grab bars and shower seat in bathroom. Pt preference is to discharge home when stable and currently denies any discharge needs. Dtr or granddaughter help transport him as needed. He reports he has lots of family and friend support if needed, denies resources at this time. Pt's spouse is limited on her ability to provide physical assist to pt as she also has some health issues herself. PT/ST ordered and pending. RT to assess for possible home O2. Plan: SW to follow closely for PT eval and recommendations to determine if discharge to home with family support an option and any further identified discharge planning needs. STEVE Martinez Discharge Planning/Care Management CM Discharge Assessment Start: 10/04/23 15:44 Freq: Status: Active Protocol: Document 10/04/23 15:44 BF (Rec: 10/04/23 15:46 BF [id number]) Discharge Planning Assessment Assigned Operating Systems Programmer STEVE De Leon DPOA/Assigned Designee Name spouse and Dtr Contact Information [phone] Advance Directives? No Advance Directives on File No History Provided By Patient,Medical Record Has Patient been admitted in last 30 No days? Prior Living Arrangements Mobile home Household Members spouse Type of transporation used prior to Relies on Others admit Independent with ADL's Yes Is patient alert and oriented? Yes Needs Assistance With Home Chores / Shopping Caregiver for Another No: spouse not in the [employer] Already Rented / Owned FWW / Walker,Cane Comment grab bars in shower, shower seat Patient/Family Preference Home with Home Health Barriers to Discharge No Comment Anticipate home w/supportive family and spouse Discharge Plan Home Transportation Arrangement Family available to provide transport at d/c Additional Comment Pending progress with O2 and possible PT eval If patient plan is home with home health TBD : Has signed face to face form been completed? Whiteboard Updated in Patient Room with Yes name and ext. # of Operating Systems Programmer Review Status In Process Please Provide Date Initial DC 10/04/23 Assessment Was Performed Next Review Type Continued Stay Review
[2023-10-04] MEDS: ATORVASTATIN 20 MG TABLET 40 MG PO (20:23)
[2023-10-04] MEDS: SODIUM CHLORIDE 0.9% FLUSH 10 ML IV (20:25)
[2023-10-05] VITALS (17 sets, daily range): BP systolic 100–139; BP diastolic 60–71; PULSE 96–115; RESP 16–24; TEMP 36.3–36.9; O2SAT 91–100
[2023-10-05 05:34] LABS: BUN Creatinine Ratio 33.3 (6-22); Blood Urea Nitrogen 25 mg/dL (9-20); Calcium 8.9 mg/dL (8.4-10.2); Chloride 95 mmol/L (98-107); Estimated Glomerular Filt Rate > 60 mL/min (>60); Glucose 94 mg/dL (80-110); HEMOLYSIS < 15 (0-50); Magnesium 2.3 mg/dL (1.6-2.3); Potassium 4.3 mmol/L (3.4-5.1); Sodium 138 mmol/L (137-145)
[2023-10-05 05:35] LABS: Add Manual Diff / Slide Review NO; Basophils Absolute Auto 0 /uL (0-100); Basophils Percent Auto 1.2 % (0-2); Eosinophils Absolute Auto 100 /uL (0-450); Eosinophils Percent Auto 2.8 % (2-4); Hematocrit 26.8 % (41-53); Hemoglobin 8.3 g/dL (13.5-17.5); Lymphocytes Absolute Auto 700 /uL (1100-4500); Lymphocytes Percent Auto 17.5 % (25-40); Mean Corpuscular HGB Conc 30.9 % (30-36); Mean Corpuscular Hemoglobin 25.9 PG (26-34); Mean Corpuscular Volume 83.6 fL (80-100); Monocytes Absolute Auto 500 /uL (0-900); Monocytes Percent Auto 14.3 % (3-14); Neutrophils Absolute Auto 2400 /uL (1500-7000); Neutrophils Percent Auto 64.2 % (50-75); Platelet Count 112 X10^3/uL (150-400); Red Blood Cell Count 3.21 X10^6/uL (4.5-5.9); White Blood Cell Count 3.7 X10^3/uL (4.5-11.0)
[2023-10-05 05:41] LABS: Carbon Dioxide 39 mmol/L (22-32)
[2023-10-05] MEDS: FUROSEMIDE 40 MG/4 ML VIAL IV ×2 (06:55→18:30)
--- NOTE | 2023-10-05 07:43 | P.PN_ITS ---
Exam Vital Signs (past 8 hours): - 10/05/23 00:00 10/05/23 01:00 10/05/23 05:00 Temperature 98.0 F Pulse Rate 102 H Respiratory Rate 20 Blood Pressure 114/71 Pulse Oximetry 94 94 94 Oxygen Delivery Method Nasal Cannula Nasal Cannula Oxygen Flow Rate 1 1 Oxygen Delivery Method Nasal Cannula Oxygen Flow Rate 1 Objective Labs 10/05/23 04:20 10/05/23 04:20 Labs: Laboratory Results - last 24 hr 10/05/23 04:20 WBC 3.7 L RBC 3.21 L Hgb 8.3 L Hct 26.8 L MCV 83.6 MCH 25.9 L MCHC 30.9 RDW 19.0 H Plt Count 112 L Neut % (Auto) 64.2 Lymph % (Auto) 17.5 L Dubois % (Auto) 14.3 H Eos % (Auto) 2.8 Baso % (Auto) 1.2 Neut # (Auto) 2400 Lymph # (Auto) 700 L Dubois # (Auto) 500 Eos # (Auto) 100 Baso # (Auto) 0 Sodium 138 Potassium 4.3 Chloride 95 L Carbon Dioxide 39 H BUN 25 H Creatinine 0.75 Estimated GFR > 60 BUN/Creatinine Ratio 33.3 H Glucose 94 Calcium 8.9 Magnesium 2.3 PFSH Medical History Lumbar compression fracture Lumbar spondylosis Anemia Right inguinal hernia History of colonic polyps 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 Mixed hyperlipidemia Essential hypertension Chronic diastolic CHF (congestive heart failure), NYHA class 1 Chronic anticoagulation Chronic atrial fibrillation Vision disorder Fractures Positive PPD Mumps Measles Chicken pox Tinnitus Hearing loss History of urinary incontinence (~2018) Diverticular disease Crohn's disease Myocardial infarction Coronary artery disease Asthma Surgical History Hx of heart artery stent (~1994) Anesthesia H/O mitral valve replacement (~03/2017) Family History Mother Congestive heart failure Father Coronary artery disease Social History household members: spouse Smoking Status: Never smoker alcohol intake: former substance use type: does not use Type(s) of exercise: walking frequency: daily Assessment & Plan Assessment & Plan narrative: #Acute on chronic Diastolic heart failure - presume symptoms are related to heart failure exacerbation. - continue on 40 mg IV lasix BID. - continue to follow electrolytes with diuresis and renal function. - TTE already done, EF around 50%, no significant changes to prior TTEs but does appear to be volume overloaded. - if no improvement with diuresis, alternative etiology includes silghtly worsened anemia and could consider transfusion. Will also monitor h/h. - with negative troponins, and EKG ACS ruled out. Do not feel this in angina at this time, but can consider stress testing depending on progression, though this is not available over the weekend at [facility]. #Normocytic Anemia - Hgb 8.5 on admission, 8.1 on 10/04/23 - This is in his chronic usual range, going back to 2022. - Continue outpatient PCP management #Atrial fibrillation, active, chronic/permanent, on apixaban, present on admission - continue home coreg, apixaban #CAD, chronic, pulmonary hypertension, present on admission - continue home apixaban, replace home statin with formulary equivalent. #BPH, active, chronic, present on admission - continue home flomax. #Crohn's colitis disease/IBD, chronic, present on admission * Continue mesalamine #Hyperlipidemia, mixed, chronic, present on admission * continue simvastatin 20 mg #Pancytopenia, chronic * Continue ferrous sulfate #Osteoarthritis, with muscle spasms, chronic, present on admission * Continue Flexeril #GERD, chronic, present on admission * Continue PPI #Obesity, moderate, acute on chronic, present on admission * As evidence by BMI 37 * dietary consult ordered regarding nutritional education and information for dietary, lifestyle, exercise, and weight changes. * the patient is at much higher risk for medical and surgical complications due to obesity as it relates to chronic illnesses:, and acute illness. The patient's obesity increases the difficulty and complexity of medical and/or surgical interventions, management and increases the chances of poor outcome such as morbidity and mortality as well as impaired wound healing.Code status:Full Surrogate decision maker: Italia Medeiros DVT/VTE prophylaxis: Coumadin Disposition: possible discharge home tomorrow if improvement in breathing symptoms.
[2023-10-05] MEDS: carvediloL 3.125 MG TABLET PO ×2 (08:40→21:08)
[2023-10-05] MEDS: PREGABALIN 25 MG CAPSULE PO ×3 (08:40→21:09)
[2023-10-05] MEDS: MESALAMINE 400 MG CAP.DRTAB. 800 MG PO ×2 (08:40→21:09)
[2023-10-05] MEDS: FERROUS SULFATE 325 MG TABLET PO (08:41)
[2023-10-05] MEDS: SODIUM CHLORIDE 0.9% FLUSH 10 ML IV ×2 (08:41→22:57)
[2023-10-05] MEDS: ISOSORBIDE MONONITRATE ER 30 MG TABLET PO (08:41)
[2023-10-05] MEDS: APIXABAN 5 MG TABLET PO ×2 (08:41→21:09)
[2023-10-05] MEDS: TAMSULOSIN 0.4 MG CAPSULE PO (08:41)
[2023-10-05] MEDS: FINASTERIDE 5 MG TABLET PO (08:41)
[2023-10-05] MEDS: POTASSIUM CHLORIDE 20 MEQ TAB 40 MEQ PO ×3 (08:41→21:09)
--- NOTE | 2023-10-05 11:16 | PM.DS.1 ---
History of Present Illness History of Present Illness Date Patient Seen: 10/05/23 Chief complaint: chest pain 2hrs Discharge Providers Provider Date of admission: 10/03/23 06:48 Discharge Date: 10/05/23 Primary care physician: Barrera Roth MD Consults: 10/04/23 15:10 Consult to Physical Therapy Evaluate & Treat Comment: Physician Instructions: Evaluate and Treat Consult to Speech Therapy Evaluate & Treat Comment: Physician Instructions: Evaluate and treat Discharge provider: Wes Santamaria MD Summary Status at Discharge Cognitive/behavioral status at discharge: at baseline, oriented Functional status at discharge: uses cane/walker Overall status at discharge: patient is progressing back to baseline Exam Vital Signs (past 8 hours): - 10/05/23 05:00 10/05/23 08:00 10/05/23 08:00 Temperature 98.2 F Pulse Rate 115 H Respiratory Rate 18 Blood Pressure 103/65 Pulse Oximetry 94 94 Oxygen Delivery Method Nasal Cannula Nasal Cannula Oxygen Flow Rate 1 10/05/23 08:40 10/05/23 09:00 10/05/23 09:31 Temperature Pulse Rate 115 H 107 H Respiratory Rate Blood Pressure 103/65 Pulse Oximetry 95 Oxygen Delivery Method Nasal Cannula Oxygen Flow Rate 2 Oxygen Delivery Method Nasal Cannula Oxygen Flow Rate 2 Objective Labs 10/05/23 04:20 10/05/23 04:20 Labs: Laboratory Results - last 24 hr 10/05/23 04:20 WBC 3.7 L RBC 3.21 L Hgb 8.3 L Hct 26.8 L MCV 83.6 MCH 25.9 L MCHC 30.9 RDW 19.0 H Plt Count 112 L Neut % (Auto) 64.2 Lymph % (Auto) 17.5 L Emmons % (Auto) 14.3 H Eos % (Auto) 2.8 Baso % (Auto) 1.2 Neut # (Auto) 2400 Lymph # (Auto) 700 L Emmons # (Auto) 500 Eos # (Auto) 100 Baso # (Auto) 0 Sodium 138 Potassium 4.3 Chloride 95 L Carbon Dioxide 39 H BUN 25 H Creatinine 0.75 Estimated GFR > 60 BUN/Creatinine Ratio 33.3 H Glucose 94 Calcium 8.9 Magnesium 2.3 PFSH Medical History Lumbar compression fracture Lumbar spondylosis Anemia Right inguinal hernia History of colonic polyps 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 Mixed hyperlipidemia Essential hypertension Chronic diastolic CHF (congestive heart failure), NYHA class 1 Chronic anticoagulation Chronic atrial fibrillation Vision disorder Fractures Positive PPD Mumps Measles Chicken pox Tinnitus Hearing loss History of urinary incontinence (~2018) Diverticular disease Crohn's disease Myocardial infarction Coronary artery disease Asthma Surgical History Hx of heart artery stent (~1994) Anesthesia H/O mitral valve replacement (~03/2017) Family History Mother Congestive heart failure Father Coronary artery disease Social History household members: spouse Smoking Status: Never smoker alcohol intake: former substance use type: does not use Type(s) of exercise: walking frequency: daily Discharge Plan Discharge Plan Patient Disposition: Home Provider Discharge Comment: Followup with Dr. Roth in one week. Use home oxygen 1 L by nasal cannula all the time, until cleared to stop by your doctor. Discharge orders & Medications Prescriptions: Continued albuterol sulfate [Proventil HFA] 90 MCG/PUFF HFA aerosol inhaler 2 puff INH PRN PRN (Reason: Shortness Of Breath) Qty: 0 Patient Comments: no longer taking mesalamine [Pentasa] 500 MG capsule, extended release 1,000 mg PO BID Qty: 0 Patient Comments: not sure if he is taking tamsulosin 0.4 mg capsule 0.4 mg PO DAILY Qty: 90 3RF potassium chloride 20 mEq tablet extended release 40 meq PO TID Qty: 360 1RF carvedilol 3.125 mg tablet 3.125 mg PO BID Qty: 180 3RF Rx Instructions: must administer with a meal/food simvastatin 40 mg tablet 20 mg PO BEDTIME omeprazole 20 mg tablet,delayed release (DR/EC) 20 mg PO DAILY Patient Comments: pt does not recognize this med Eliquis 5 mg tablet 5 mg PO BID Qty: 180 3RF Rx Instructions: pt does not recognize acetaminophen [Tylenol Extra Strength] 500 mg tablet 1,000 mg PO Q8H Qty: 90 0RF ferrous sulfate 325 mg (65 mg iron) Tablet 325 mg PO BID Rx Instructions: no longer taking this finasteride 5 mg Tablet 5 mg PO DAILY Patient Comments: not sure if he is taking torsemide 100 mg Tablet 100 mg PO DAILY PRN (Reason: Weight Gain) isosorbide mononitrate 60 mg Tablet Extended Release 24 Hr 30 mg PO DAILY Rx Instructions: unsure if he is taking pregabalin 25 mg capsule 25 mg PO TID Qty: 90 1RF Rx Instructions: 1 PO QHS x3 days If tolerated, 1 PO BID x3 days If tolerated, 1 PO TID Follow up/Referrals: Barrera Roth MD [Primary Care Provider] - Diet/Activity/Treatments Diet: Low-cholesterol Visit Report/Discharge Packet Stand Alone Forms: Patient Portal/API, Stroke Signs & Symptoms Discharge Data Primary Care Provider: Barrera Roth V Attending Provider: Andry Maki V Admit Date/Time: 10/03/23 06:48
--- NOTE | 2023-10-05 11:57 | PT.IPTN ---
Physical Therapy Treatment Note M2 PT-IP Current Condition Start: 10/04/23 15:55 Freq: NEEDED Status: Active Protocol: Document 10/04/23 15:20 AB (Rec: 10/04/23 16:08 AB [id number]) Physical Therapy Current Condition Current Condition Evaluation Date 10/04/23 Treatment Diagnosis CHF; difficulty in walking Onset Date 10/03/23 M3 PT-IP Subjective Start: 10/04/23 15:55 Freq: NEEDED Status: Active Protocol: Document 10/05/23 11:23 MB (Rec: 10/05/23 11:56 MB [id number]) Subjective Physical Therapy Visit Type Type Treatment Note Visit Start Time 11:23 Visit Stop Time 11:48 Number of PHYSICIAN RELATIONS MANAGER Visits 0 Physical Therapy Visit Comments Patient Comments Pt sitting upright and agreeable to PT. Unsure if he feels SOB when sitting as PT comments that he looks SOB and then he states that he is a little SOB. Pt occ stops mobility d/t increasing RUIZ with mobility. M4 PT-IP Mobility and Gait Start: 10/04/23 15:55 Freq: NEEDED Status: Active Protocol: Document 10/05/23 11:23 MB (Rec: 10/05/23 11:56 MB [id number]) PT-Bed Mobility Assessment Rolling Type of Rolling Bilateral Supine to Sit Supine to Sit Contact Guard Assistance,1 Person Assistance,Head of Bed Elevated,Bedrails Sit to Supine Sit to Supine Contact Guard Assistance,1 Person Assistance Scooting Scooting to Edge of Bed Contact Guard Assistance Scooting Up and Down in Bed Contact Guard Assistance PT-Transfer Assessment Sit to and From Stand Sit to and from Stand Contact Guard Assistance,1 Person Assistance,Use of Upper Extremities Equipment Transfer Assistive Device Gait Belt,Front Wheeled Walker Orthotic/Prosthetic Devices or Brace: No Transfers Transfer Destination Bed,Chair Transfer Ability Level of Assist Contact Guard Assistance,1 Person Assistance,Use of Upper Extremities Comments Mobility Comments Cues to push up from the bed and not from the walker for standing up from the bed. Four STS transfers during treatment: chair to RW, RW to bed, bed to RW and RW to chair Pt now on 1LO2 at all times and sats remain in the mid to low 90s throughout mobility as PT assesses during mobility. He [id number] after gait and BP and HR in right UE are 112/76, 111 Gait Assessment Gait Gait Assistance Required: Contact Guard Assist,1 Person Assist Distance (Feet) 20 Able to Maintain Weight Bearing Status Yes During Gait Assistive Devices Assistive Device Gait Belt,Front Wheeled Walker Orthotic/Prosthetic Devices or Brace: No Gait Deviations General Gait Pattern Decreased Stride Length, Decreased Feet Clearance,Step- to Gait Factors Limiting Gait Function Factors Limiting Gait Function Decreased Activity Tolerance, Decreased Strength,Difficulty Following Directions,Limited Range of Motion,Poor Balance, Poor Safety Awareness, Respiratory Distress Comments Gait Comments Pt tends to keep the walker too far in front and feet outside of it. Slow mobility and decreased step-length and foot clearance, wide PETER PT-Balance Assessment Sitting Balance and Reactions Static Sitting Balance Ability Good Dynamic Sitting Balance Ability Fair Standing Balance and Reactions Static Standing Balance Ability Fair Dynamic Standing Balance Ability Fair Device Used FWW M5 PT-IP Objective Assessments Start: 10/04/23 15:55 Freq: NEEDED Status: Active Protocol: Document 10/04/23 15:20 AB (Rec: 10/04/23 16:08 AB [id number]) Orientation Orientation/Cognition Level of Alertness Alert Orientation Name Language Function Ability Hard of Hearing Safety Awareness Decreased Safety Awareness Memory Description Short Term Impaired Comments pt is impulsive Muscle Tone Muscle Tone WNL Yes M6 PT-IP Treatment Start: 10/04/23 15:55 Freq: NEEDED Status: Active Protocol: Document 10/04/23 15:20 AB (Rec: 10/04/23 16:08 AB [id number]) Physical Therapy Treatment Education Education Provided Safety M7 PT-IP Assessment and Plan Start: 10/04/23 15:55 Freq: NEEDED Status: Active Protocol: Document 10/05/23 11:23 MB (Rec: 10/05/23 11:56 MB [id number]) PT Summary Assessment and Plan Potential Rehabilitation Potential Fair Status of Condition at Evaluation Evolving Summary Impairments Pain,ROM,Strength,Balance, Coordination,Sensation,Tone, Cognition,Bed Mobility, Transfers,Gait,Activity Tolerance Assessment Summary RT assessment has been done and pt will d/c home with 1L O2 per nsg and his O2 sats stay in the 90s on the 1L with PT during mobility today. Pt reports light-headedness with gait and SOB at all times and takes rest breaks. He moves very slowly and 20' x2 around bed and back to chair takes about 17 minutes. He states his kids will pick him up and live nearby and he d/cs home with . Recommend 24 hour superv and HH services. Goals Bed Mobility Goal Independent Transfer Goal Independent,Front Wheeled Walker Gait Goal Independent,Front Wheel Walker Gait Distance 100 Other Goals improve transfers and ambulation using 4WW/LRAD 200 ft SBA Days to Meet Goals 10 Frequency of Treatment Frequency Of Treatment Once a Day Treatment Plan Physical Therapy Treatment Plan Bed Mobility Training,Transfer Training,Gait Training, Therapeutic Exercise,Balance Retraining,Discharge Planning, Hot or Cold Pack,Neuromuscular Re-ed,Coordination Retraining Precautions Other Precautions falls; O2 sat Recommendations To Nursing Amount of Assist Needed 1 Person Assist Discharge Recommendations PT Discharge Recommendations Home with 24/7 Assist Available,Home Health Transportation Needs at Discharge Private Vehicle
--- NOTE | 2023-10-05 13:09 | CM.DPC ---
DCP Cont. Reviewed EMR and team rounds for status updates. Home O2 eval has been done, home O2 is ordered and will be delivered later today. Plan is for pt to d/c home with assistance, family will transport. No further d/c needs at this time.
--- NOTE | 2023-10-05 14:37 | DI.RAD.S_ITS ---
PROCEDURE: XR CHEST 1V INDICATIONS: Aspiration TECHNIQUE: One view of the chest was acquired. COMPARISON: [facility], CR, XR CHEST 1V, 10/03/2023, 4:57. [facility], CR, XR CHEST 1V, 07/25/2023, 17:21. FINDINGS: Surgical changes and devices: Median sternotomy wires. Cardiac valvuloplasty. Left atrial appendage clip. Lungs and pleura: Left midlung opacity is more pronounced than prior.. No pleural effusions or pneumothorax. Mediastinum: Mediastinal contours appear normal. Heart size is stable enlarged.. Bones and chest wall: No suspicious bony lesions. Overlying soft tissues appear unremarkable. IMPRESSION: Left midlung opacity is more pronounced than prior. May represent atelectasis versus opacity. Stable cardiomegaly. Dictated by: Doug Griffin M.D. on 10/05/2023 at 15:06 Approved by: Doug Griffin M.D. on 10/05/2023 at 15:08
[2023-10-05] MEDS: DEXTROSE 5%-0.9% NS 1,000 ML 60 ML IV (15:00)
[2023-10-05] MEDS: ALBUTEROL 2.5 MG/3 ML NEB (ADULT) INH (15:00)
--- NOTE | 2023-10-05 15:07 | PC.NURSE ---
Day shift: After lunch at approximately 1300, this RN noted that patient's work of breathing had increased. RR 32. O2 sats remain stable on 2L NC. Notified MD of patient's increased work of breathing and this RN's concern with patient's continued coughing after drinking water or swallowing food. MD came to evaluate patient. He agreed that patient was coughing after eating. Ordered barium swallow and speech eval. Asked about NPO and chest xray, MD stated not at this time. At 1400, patient's work of breathing increased with patient stating it was harder to get a good breath. Consistent wet cough. Wet, gurgly sound on inspiration. Lung auscultation: coarse crackles in L lobe identified. Notified MD again. He placed patient NPO and chest xray ordered. This RN notified RT who came up to assess. Chest xray identified left lung opacity more pronounced than before. RT gave albuterol nebulizer treatment. Pt's respiratory rate decreased to 26-28. O2 sats, HR and BP remain stable. Pt stated his breathing feels a little better. He is still short of breath while speaking, though wet gurgly sound on inspiration has improved. Will continue to closely monitor.
--- NOTE | 2023-10-05 15:59 | P.PN_ITS ---
Subjective Subjective Date Patient Seen: 10/05/23 Time Patient Seen: 16:00 Interval history: He was seen in his room several times today in preparation for discharge. Orders were written but then with lunch he began coughing with every bite, going on for quite awhile. A chest x-ray was done and the patient was kept for 1 more day to undergo formal swallow evaluation and barium swallow study. A left mid lung infiltrate appears much more prominent today compared to previously but the film is underpenetrated compared to the previous film also. Respiratory therapy documented a need for home oxygen and arranged that but despite feeling stronger and sounding louder with his voice he was unable to convincingly swallow without suggestions of aspiration. His saturation was 86% at rest on room air and 91% on 1 L at rest. Exam Vital Signs (past 8 hours): - 10/05/23 08:00 10/05/23 08:00 10/05/23 08:40 Temperature 98.2 F Pulse Rate 115 H 115 H Respiratory Rate 18 Blood Pressure 103/65 103/65 Pulse Oximetry 94 Oxygen Delivery Method Nasal Cannula Oxygen Flow Rate 1 10/05/23 09:00 10/05/23 09:31 10/05/23 10:00 Temperature Pulse Rate 107 H Respiratory Rate Blood Pressure Pulse Oximetry 95 98 Oxygen Delivery Method Nasal Cannula Nasal Cannula Oxygen Flow Rate 2 2 10/05/23 12:00 10/05/23 13:00 10/05/23 15:00 Temperature 97.4 F L Pulse Rate 103 H 101 H Respiratory Rate 16 24 Blood Pressure 108/69 Pulse Oximetry 91 94 94 Oxygen Delivery Method Nasal Cannula Nasal Cannula Oxygen Flow Rate 1 2 2 Oxygen Delivery Method Nasal Cannula Oxygen Flow Rate 2 Narrative Exam Narrative: Patient was seen several times, the 1st time he was speaking louder and appeared stronger. The Second and 3rd times he was coughing and appeared weak and disturbed by the incessant coughing after attempts to swallow. Heart is regular rate and rhythm no murmur Lungs are clear to auscultation bilaterally Abdomen is soft, bowel sounds positive, nontender, no organomegaly Extremities have no ankle edema Objective Labs 10/05/23 04:20 10/05/23 04:20 Labs: Laboratory Results - last 24 hr 10/05/23 04:20 WBC 3.7 L RBC 3.21 L Hgb 8.3 L Hct 26.8 L MCV 83.6 MCH 25.9 L MCHC 30.9 RDW 19.0 H Plt Count 112 L Neut % (Auto) 64.2 Lymph % (Auto) 17.5 L [place] % (Auto) 14.3 H Eos % (Auto) 2.8 Baso % (Auto) 1.2 Neut # (Auto) 2400 Lymph # (Auto) 700 L [place] # (Auto) 500 Eos # (Auto) 100 Baso # (Auto) 0 Sodium 138 Potassium 4.3 Chloride 95 L Carbon Dioxide 39 H BUN 25 H Creatinine 0.75 Estimated GFR > 60 BUN/Creatinine Ratio 33.3 H Glucose 94 Calcium 8.9 Magnesium 2.3 PFSH Medical History Lumbar compression fracture Lumbar spondylosis Anemia Right inguinal hernia History of colonic polyps 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 Mixed hyperlipidemia Essential hypertension Chronic diastolic CHF (congestive heart failure), NYHA class 1 Chronic anticoagulation Chronic atrial fibrillation Vision disorder Fractures Positive PPD Mumps Measles Chicken pox Tinnitus Hearing loss History of urinary incontinence (~2018) Diverticular disease Crohn's disease Myocardial infarction Coronary artery disease Asthma Surgical History Hx of heart artery stent (~1994) Anesthesia H/O mitral valve replacement (~03/2017) Family History Mother Congestive heart failure Father Coronary artery disease Social History household members: spouse Smoking Status: Never smoker alcohol intake: former substance use type: does not use Type(s) of exercise: walking frequency: daily Assessment & Plan Assessment & Plan narrative: #Acute on chronic Diastolic heart failure - presume some of his symptoms are related to heart failure exacerbation. - continues on 40 mg IV lasix BID. - continue to follow electrolytes with diuresis and renal function. - TTE already done, EF around 50%, no significant changes to prior TTEs but does appear to be volume overloaded. - if no improvement with diuresis, alternative etiology includes silghtly worsened anemia and could consider transfusion. Will also monitor h/h. - with negative troponins, and EKG ACS ruled out. Do not feel this in angina at this time, but can consider stress testing depending on progression, though this is not available over the weekend at [facility]. -the patient was prepared for discharge 10/05/23 and orders were written but he was unable to eat lunch or drink liquids without incessant coughing so was kept in the hospital for swallow evaluation and potential barium studies. -chest x-ray suggests increasing opacity in the left middle lung which appears to be chronic. Zosyn will be initiated. -home O2 evaluation qualified with sat 86% on room air rising to 91% on 1 L nasal cannula at rest #Normocytic Anemia - Hgb 8.5 on admission, 8.1 on 10/04/23 - This is in his chronic usual range, going back to 2022. - Continue outpatient PCP management #Atrial fibrillation, active, chronic/permanent, on apixaban, present on admission - continue home coreg, apixaban #CAD, chronic, pulmonary hypertension, present on admission - continue home apixaban, replace home statin with formulary equivalent. #BPH, active, chronic, present on admission - continue home flomax. #Crohn's colitis disease/IBD, chronic, present on admission * Continue mesalamine #Hyperlipidemia, mixed, chronic, present on admission * continue simvastatin 20 mg #Pancytopenia, chronic * Continue ferrous sulfate #Osteoarthritis, with muscle spasms, chronic, present on admission * Continue Flexeril #GERD, chronic, present on admission * Continue PPI #Obesity, moderate, acute on chronic, present on admission * As evidence by BMI 37 * dietary consult ordered regarding nutritional education and information for dietary, lifestyle, exercise, and weight changes. * the patient is at much higher risk for medical and surgical complications due to obesity as it relates to chronic illnesses:, and acute illness. The patient's obesity increases the difficulty and complexity of medical and/or surgical interventions, management and increases the chances of poor outcome such as morbidity and mortality as well as impaired wound healing.Code status:Full Surrogate decision maker: Italia Medeiros DVT/VTE prophylaxis: Coumadin Disposition: possible discharge home tomorrow if improvement in breathing symptoms.
[2023-10-05] MEDS: PIPERACILLIN/TAZO 3.375 GM in SODIUM CHLORIDE 0.9% 100 ML IV (17:07)
[2023-10-05] MEDS: ALBUTEROL/IPRATROPIUM 3 ML AMPUL INH (19:24)
[2023-10-05] MEDS: ATORVASTATIN 20 MG TABLET 40 MG PO (21:09)
[2023-10-06] VITALS (18 sets, daily range): BP systolic 101–127; BP diastolic 52–66; PULSE 66–109; RESP 18–21; TEMP 36.3–37.1; O2SAT 92–100
[2023-10-06] MEDS: PIPERACILLIN/TAZO 3.375 GM in SODIUM CHLORIDE 0.9% 100 ML IV ×3 (00:35→17:26)
[2023-10-06 05:18] LABS: Add Manual Diff / Slide Review NO; Basophils Absolute Auto 0 /uL (0-100); Basophils Percent Auto 0.5 % (0-2); Eosinophils Absolute Auto 200 /uL (0-450); Eosinophils Percent Auto 4.3 % (2-4); Hematocrit 26.7 % (41-53); Hemoglobin 8.1 g/dL (13.5-17.5); Lymphocytes Absolute Auto 600 /uL (1100-4500); Lymphocytes Percent Auto 10.6 % (25-40); Mean Corpuscular HGB Conc 30.4 % (30-36); Mean Corpuscular Hemoglobin 25.5 PG (26-34); Mean Corpuscular Volume 83.8 fL (80-100); Monocytes Absolute Auto 800 /uL (0-900); Monocytes Percent Auto 15.2 % (3-14); Neutrophils Absolute Auto 3700 /uL (1500-7000); Neutrophils Percent Auto 69.4 % (50-75); Platelet Count 108 X10^3/uL (150-400); Red Blood Cell Count 3.19 X10^6/uL (4.5-5.9); Red Cell Distribution Width 18.8 % (11.6-14.8); White Blood Cell Count 5.4 X10^3/uL (4.5-11.0)
[2023-10-06 05:41] LABS: BUN Creatinine Ratio 26.3 (6-22); Blood Urea Nitrogen 21 mg/dL (9-20); Calcium 8.8 mg/dL (8.4-10.2); Chloride 96 mmol/L (98-107); Estimated Glomerular Filt Rate > 60 mL/min (>60); Glucose 110 mg/dL (80-110); HEMOLYSIS < 15 (0-50); Magnesium 2.1 mg/dL (1.6-2.3); Potassium 4.1 mmol/L (3.4-5.1); Sodium 137 mmol/L (137-145)
[2023-10-06 05:49] LABS: Carbon Dioxide 41 mmol/L (22-32)
[2023-10-06] MEDS: FUROSEMIDE 40 MG/4 ML VIAL IV (06:21)
[2023-10-06] MEDS: DEXTROSE 5%-0.9% NS 1,000 ML 60 ML IV (06:22)
[2023-10-06] MEDS: ALBUTEROL/IPRATROPIUM 3 ML AMPUL INH ×2 (08:38→20:45)
[2023-10-06] MEDS: FERROUS SULFATE 325 MG TABLET PO (09:04)
[2023-10-06] MEDS: MESALAMINE 400 MG CAP.DRTAB. 800 MG PO ×2 (09:04→21:25)
[2023-10-06] MEDS: ISOSORBIDE MONONITRATE ER 30 MG TABLET PO (09:05)
[2023-10-06] MEDS: PREGABALIN 25 MG CAPSULE PO ×3 (09:05→21:28)
[2023-10-06] MEDS: TAMSULOSIN 0.4 MG CAPSULE PO (09:05)
[2023-10-06] MEDS: APIXABAN 5 MG TABLET PO ×2 (09:05→21:30)
[2023-10-06] MEDS: FINASTERIDE 5 MG TABLET PO (09:05)
[2023-10-06] MEDS: carvediloL 3.125 MG TABLET PO ×2 (09:05→21:28)
[2023-10-06] MEDS: POTASSIUM CHLORIDE 20 MEQ TAB 40 MEQ PO ×3 (09:06→21:27)
[2023-10-06] MEDS: SODIUM CHLORIDE 0.9% FLUSH 10 ML IV ×2 (09:14→21:29)
--- NOTE | 2023-10-06 10:00 | DI.RAD.S_ITS ---
PROCEDURE: FL BARIUM SWALLOW W SPEECH INDICATIONS: Aspiration COMPARISON: TECHNIQUE: Examination was conducted in conjunction with speech pathology per standard protocol. In the lateral projection, filming was performed of the patient swallowing. AP projection filming may also be performed with patient swallowing. COMPARISON: [facility], CR, XR CHEST 1V, 10/05/2023, 14:48. FINDINGS: Function: There is mild laryngotracheal penetration or aspiration with thin liquid consistency. No pathologic vallecular pooling. Morphology: No cricopharyngeal bar is identified. No cervical esophageal webs. No Zenker's diverticulum. No strictures. IMPRESSION: Mild laryngeal penetration and aspiration. Please see separate speech pathologist's report. Dictated by: Nicky Muniz M.D. on 10/06/2023 at 11:30 Approved by: Nicky Muniz M.D. on 10/06/2023 at 11:31
--- NOTE | 2023-10-06 11:31 | PT.IPTN ---
Current Diagnoses Acute on chronic diastolic (congestive) heart failure (10/04/23) Physical Therapy Treatment Note M2 PT-IP Current Condition Start: 10/04/23 15:55 Freq: NEEDED Status: Active Protocol: Document 10/04/23 15:20 AB (Rec: 10/04/23 16:08 AB [id number]) Physical Therapy Current Condition Current Condition Evaluation Date 10/04/23 Treatment Diagnosis CHF; difficulty in walking Onset Date 10/03/23 M3 PT-IP Subjective Start: 10/04/23 15:55 Freq: NEEDED Status: Active Protocol: Document 10/06/23 12:42 ZF (Rec: 10/06/23 12:52 ZF [id number]) Subjective Physical Therapy Visit Type Type Treatment Note Visit Start Time 11:31 Visit Stop Time 11:52 Number of TAPE COATER Visits 1 Physical Therapy Visit Comments Patient Comments Pt sleeping when approached, once awakened pt is motivated for therapy. M4 PT-IP Mobility and Gait Start: 10/04/23 15:55 Freq: NEEDED Status: Active Protocol: Document 10/06/23 12:42 ZF (Rec: 10/06/23 12:52 ZF [id number]) PT-Bed Mobility Assessment Supine to Sit Supine to Sit Contact Guard Assistance,1 Person Assistance,Head of Bed Elevated,Bedrails Scooting Scooting to Edge of Bed Contact Guard Assistance Scooting Up and Down in Bed Contact Guard Assistance PT-Transfer Assessment Sit to and From Stand Sit to and from Stand Standby Assistance,1 Person Assistance,Use of Upper Extremities Equipment Transfer Assistive Device Gait Belt,Front Wheeled Walker Orthotic/Prosthetic Devices or Brace: No Transfers Transfer Destination Chair Transfer Ability Level of Assist Standby Assistance,1 Person Assistance,Use of Upper Extremities Comments Mobility Comments Supine>sitting EOB requires CGA, with therapist securing 2ww, as pt uses this to pull himself forward. Pt's sitting balance good. STS from EOB w/ 2ww, SBA. Pt amb in room x50' w/2ww, SBA. Therapist managing O2 line, and IV line. Pt dems kyphotic posture, reduced step length. Pt tends to breath through his mouth and requires cueing for inhaling through nose to improve sup O2 intake. Vitals monitored w/ activity: 95/54 mmHg, 99BPM, 88%O2sat, which increases to low 90s within a few mins. When asked pt reports mild lightheadedness. Pt left up in recliner with OT. Gait Assessment Gait Gait Assistance Required: Standby Assistance,1 Person Assist Distance (Feet) 50 Able to Maintain Weight Bearing Status Yes During Gait Assistive Devices Assistive Device Gait Belt,Front Wheeled Walker Orthotic/Prosthetic Devices or Brace: No Gait Deviations General Gait Pattern Decreased Stride Length, Decreased Feet Clearance,Step- to Gait Factors Limiting Gait Function Factors Limiting Gait Function Decreased Activity Tolerance, Decreased Strength,Difficulty Following Directions,Limited Range of Motion,Poor Balance, Poor Safety Awareness, Respiratory Distress Comments Gait Comments See mobility comments PT-Balance Assessment Sitting Balance and Reactions Static Sitting Balance Ability Good Dynamic Sitting Balance Ability Fair Standing Balance and Reactions Static Standing Balance Ability Fair Dynamic Standing Balance Ability Fair Device Used FWW M5 PT-IP Objective Assessments Start: 10/04/23 15:55 Freq: NEEDED Status: Active Protocol: Document 10/04/23 15:20 AB (Rec: 10/04/23 16:08 AB [id number]) Orientation Orientation/Cognition Level of Alertness Alert Orientation Name Language Function Ability Hard of Hearing Safety Awareness Decreased Safety Awareness Memory Description Short Term Impaired Comments pt is impulsive Muscle Tone Muscle Tone WNL Yes M6 PT-IP Treatment Start: 10/04/23 15:55 Freq: NEEDED Status: Active Protocol: Document 10/06/23 12:42 ZF (Rec: 10/06/23 12:52 ZF [id number]) Physical Therapy Treatment Education Education Provided Safety M7 PT-IP Assessment and Plan Start: 10/04/23 15:55 Freq: NEEDED Status: Active Protocol: Document 10/06/23 12:42 ZF (Rec: 10/06/23 12:52 ZF [id number]) PT Summary Assessment and Plan Potential Rehabilitation Potential Fair Summary Impairments Pain,ROM,Strength,Balance, Coordination,Sensation,Tone, Cognition,Bed Mobility, Transfers,Gait,Activity Tolerance Assessment Summary Pt dems improved activity tolerance today, requires SBA for functional mobility, on 1L O2. Recommending Home w/ Assist and HH services. Goals Bed Mobility Goal Independent Transfer Goal Independent,Front Wheeled Walker Gait Goal Independent,Front Wheel Walker Gait Distance 100 Other Goals improve transfers and ambulation using 4WW/LRAD 200 ft SBA Days to Meet Goals 10 Frequency of Treatment Frequency Of Treatment Once a Day Treatment Plan Physical Therapy Treatment Plan Bed Mobility Training,Transfer Training,Gait Training, Therapeutic Exercise,Balance Retraining,Discharge Planning, Hot or Cold Pack,Neuromuscular Re-ed,Coordination Retraining Precautions Other Precautions falls; O2 sat Recommendations To Nursing Amount of Assist Needed 2 Person Assist Discharge Recommendations PT Discharge Recommendations Home with 24/ Assist Available,Home Health Transportation Needs at Discharge Private Vehicle
--- NOTE | 2023-10-06 12:03 | OT.IP.EVAL ---
Current Diagnoses Acute on chronic diastolic (congestive) heart failure (10/04/23) Past Medical History (Last Reviewed 09/25/23 @ 15:20 by Rogerio Driver MD) Anemia Asthma BPH w urinary obs/LUTS Chicken pox Chronic anticoagulation Chronic atrial fibrillation Chronic diastolic CHF (congestive heart failure), NYHA class 1 Coronary artery disease Crohn's disease Diverticular disease Essential hypertension Fractures Hearing loss History of colonic polyps History of urinary incontinence (~2018) Lumbar compression fracture Lumbar spondylosis Measles Mixed hyperlipidemia Mumps Myocardial infarction Positive PPD Primary osteoarthritis involving multiple joints Right inguinal hernia Tinnitus Vision disorder Surgical History (Last Reviewed 09/25/23 @ 15:20 by Rogerio Driver MD) Anesthesia H/O mitral valve replacement (~03/2017) Hx of heart artery stent (~1994) Occupational Therapy Inpatient Evaluation/Re-Eval M1 PT/OT-IP Prior Functional Status Start: 10/04/23 15:55 Freq: NEEDED Status: Active Protocol: Document 10/06/23 13:34 CGR (Rec: 10/06/23 13:55 CGR [id number]) Medical Review Prior Functional Status Medical History Reviewed Yes Communication able to make needs known; [place] Mobility and Gait pt statd that he was modified independent with all mobilities and ambulation using a 4WW Activities of Daily Living and IADL's pt states that he was IND for ADLs but needed help with socks and shoes Prior Functional Level (Other details) pt has condom catheter and stated that he is able to manage catheter by himself Social History Household Members spouse Living Arrangements Mobile home Number of Floors (Floors) One Floor Number of Stairs To Enter/Railing? 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; stated that his children live around his property (mobile homes) and will be able to assist him if needed M2 OT-IP Current Condition Start: 10/06/23 13:32 Freq: Status: Active Protocol: Document 10/06/23 13:34 CGR (Rec: 10/06/23 13:55 CGR [id number]) Occupational Therapy Current Condition Current Condition Evaluation Date 10/06/23 Treatment Diagnosis acute on chronic heart failue, new swallow concerns Diagnosis Onset Date 3/30/24 M3 OT- IP Subjective and Pain Start: 10/06/23 13:32 Freq: Status: Active Protocol: Document 10/06/23 13:34 CGR (Rec: 10/06/23 13:55 CGR [id number]) OT- Subjective Occupational Therapy Visit Type Type Initial Evaluation Visit Start Time 11:40 Visit Stop Time 12:03 Notes partial co-treat with P.T. OT Pain Assessment Pain When Pain Assessed At Rest Pain Present Pain Present Denied Pain M4 OT- IP ADL's Start: 10/06/23 13:32 Freq: Status: Active Protocol: Document 10/06/23 13:34 CGR (Rec: 10/06/23 13:55 CGR [id number]) OT [id number] Comments OT Self-Feeding Comments not meal time OT ADL-Grooming General Evaluation Grooming Ability Standby Assistance Areas Needing Assistance Retrieving/Set-up of Grooming Items,Face Washing Comments OT Grooming Comments seated in chair OT ADL-Oral Care General Eval Oral Care Ability Standby Assistance Areas of Assistance Brushing Teeth Comments Oral Care Comments seated in chair OT ADL-Dressing Comments OT Dressing Comments not performed OT ADL-Toileting Comments OT Toileting Comments not performed OT ADL-Bathing Comments OT Bathing Comments not performed M5 OT- IP IADL's Start: 10/06/23 13:32 Freq: Status: Active Protocol: Document 10/06/23 13:34 CGR (Rec: 10/06/23 13:55 CGR [id number]) OT-Instrumental Activities of Daily Living Deficits IADL Deficits Identified No Deficits Home Safety Awareness Awareness of Need for Assistance at Home Good Awareness Ability to Problem Solve Emergency Able to Problem Solve Situations Medication Management Medication Management No Deficits Identified Money Management Money Management No Deficits Identified Meal Preparation Meal Preparation Caregiver Provides Assist Microfiche Camera Operator Microfiche Camera Operator Caregiver Provides Assist Driving Driving Comments Pt states that he minimally drives M6 OT- IP Functional Cognition Start: 10/06/23 13:32 Freq: Status: Active Protocol: Document 10/06/23 13:34 CGR (Rec: 10/06/23 13:55 CGR [id number]) Cognitive Factors Limiting Selfcare Function Cognitive Ability Level of Alertness Alert Patient Orientation Name,Age,Birthday,Month,Date, Year,Day of Week,Place, Situation Attention Span Ability Capable of Focused Attention, Capable of Sustained Attention Ability to Follow Commands Able to Follow One Step Commands with Increased Time, Able to Follow One Step Commands with Repetition OT- Vision and Hearing OT- Hearing Assessment OT- Hearing Assessment WFL OT- Vision Assessment Visual Acuity Glasses All The Time Visual Attentiveness WFL Occular Pursuits WFL M7 OT- IP Mobility and Balance Start: 10/06/23 13:32 Freq: Status: Active Protocol: Document 10/06/23 13:34 CGR (Rec: 10/06/23 13:55 CGR [id number]) OT-Transfer Assessment Sit to and From Stand Sit to and from Stand Standby Assistance Transfers Transfer Ability Standby Assistance Technique Transfer Destination Bed,Chair Transfer Technique Stand Step Pivot Devices Transfer Assistive Devices Gait Belt,Front Wheeled Walker Comments Mobility Comments mobility around the room. See P.T. note for more information . OT- Balance Assessment Sitting Balance and Reactions Static Sitting Balance Ability Good Dynamic Sitting Balance Ability Good M8 OT- IP Objective Assessments Start: 10/06/23 13:32 Freq: Status: Active Protocol: Document 10/06/23 13:34 CGR (Rec: 10/06/23 13:55 CGR [id number]) OT Gross Range of Motion Upper Extremity Range of Motion Assessment Within Functional Limits OT Strength Upper Extremity Strength Assessment Within Functional Limits Comments Strength Comments 4+/5 throughout OT- Coordination Assessment Upper Extremity Finger to Nose Test Within Functional Limits Finger Tapping Test Within Functional Limits Comments Coordination Comments Pt has arthritic changes but they do not appear to be impairing his coordination. OT-Muscle Tone Assessment Muscle Tone WNL Yes OT Sensation Assessment Edema Edema Absent M9 OT- IP Assessment and Plan Start: 10/06/23 13:32 Freq: Status: Active Protocol: Document 10/06/23 13:34 CGR (Rec: 10/06/23 13:55 CGR [id number]) OT Summary Assessment and Plan Potential Rehabilitation Potential Good Analytic Complexity at Evaluation Moderate Summary OT Impairments Balance,Functional Mobility, Grooming,Dressing,Toileting, Bathing,Toilet Transfers, Shower Transfers,Activity Tolerance Progress Towards Goals Progressing Toward Goals Assessment Summary Pt presents as a moderate complexity evaluation s/p admit for acute on chronic CHF and was found to be aspirating with eating. Pt is scheduled for swallow study today but was able to participate in some ADLs with therapy. Pt states that he feels like he is mobilizing at his baseline except that he now needs O2. Pt will continue to benefit from OT services. Recommend d/c to home with family support. Goals Grooming Goal Independent Dressing Goal Independent,Instructional Systems Design Consultant,Sock Aid Toileting Goal Independent Bathing Goal Independent Toilet Transfer Goal Independent Shower Transfer Goal Independent Days to Meet Goals 10 Frequency of Treatment Frequency Of Treatment Once a Day Treatment Plan OT Treatment Plan ADL Training,Functional Mobility,Patient/Family Education,Discharge Planning Other Treatment Recommendations and Next LB dressing, shower Treatment Focus Discharge Recommendations OT Discharge Recommendations Home with Assistance Transportation Needs at Discharge Private Vehicle
--- NOTE | 2023-10-06 13:11 | CM.DPC ---
DCP HH Planning Per MD, pt to have ST do MBS today to check his swallow and aspiration risk and remains on oxygen and to work more with PT/OT. Per PT, recommending home with assist and HH. OT pending. Pt remains on 2LO2 at this time and RT already set up new Home Oxygen for pt as he was anticipated to d/c yesterday. SW met bedside with pt sitting up in bedside chair with oxygen and explained role and discussed HH recommendation. Pt confirms he used HH in the past year or two and cannot remember which HH agency but that pt fired them, I didn't think they were needed or any good. Pt confirms though that he would be agreeable working with another HH agency due to his new Home O2 needs and weakness. SW confirmed pt's last admission in Mar/May last year 2022 he had referral to [facility]. DAVID Yancy kindly made referral to [facility] , only other agency that covers [facility], and sent completed F2F to [facility] for review. Pt confirms that his no longer drives and therefore his Dtr or Granddtr will provide transport home at d/c. Plan: SW to follow for plan of discharge home when medically stable via family POV and new [facility] referral made. SW to fax d/c summary to [facility] at discharge. STEVE Martinez
--- NOTE | 2023-10-06 14:23 | ST.SWALLOW ---
Visit Care Team Role Provider Type Barrera Roth MD Primary Care Provider Physician Specialty: Internal Medicine Address: [address] [place] [address] Email: [email or web address] Van Chapman MD Emergency Provider Physician Specialty: Emergency Medicine Address: [address] [place] [address], [facility] Email: [email or web address] Andry Maki MD Admit Provider Physician Attending Provider Specialty: Internal Medicine Address: [address] [place] [address] Fax: Email: [email or web address] Modified Barium Swallow Study BANQUET ATTENDANT Modified Barium Swallow Study Start: 10/06/23 12:47 Freq: Status: Active Protocol: Document 10/06/23 12:47 LNK (Rec: 10/06/23 13:21 LNK [id number]) Modified Barium Swallow Study Total Time Visit Start Time 10:30 Visit Stop Time 11:00 Total Visit Minutes [address] Santamaria Reason for Referral Dysphagia; coughing with meals Setting Setting Acute Care Patient Information Identification Type Name,ID Wristband Patient History Pt was admitted on 10/03/23 with severe breathlessness and midsternal chest pain which lasted very intensely for about an hour. He did have shortness of breath. He has not had cough or fever. No history of thromboembolism. Pt was about to be discharged 10/05/23 but was noted to be significantly coughing during noon meal and became more SOB later in the afternoon. Chest xray noted left mid-lung opacity is more pronounced than prior. May represent atelectasis versus opacity. MBS ordered to determine safty for PO intake. Subjective Observations Pt was brought to the fluoro room in the fluoroscopy chair. Pt was alert and cooperative. He described choking yesterday, but could not recal what he was eating/drinking when choking. Patient Positioning Position View Lateral Imaging Lateral View Textures Administered Trials Presented Thin Liquid via Spoon (IDDSI 0 ),Thin Liquid via Cup (IDDSI 0 ),Mildly Thick Liquid via Spoon (IDDSI 2),Mildly Thick Liquid via Cup (IDDSI 2), Mildly Thick Liquid via Straw (IDDSI 2),Extremely Thick Liquid via Spoon (IDDSI 4), Regular (IDDSI 7) Barium Tablet Yes The IDDSI Framework Protocol: IDDSI.1 Oral Impairment Source: The Modified Barium Swallow Impairment Profile (MBSImP??) Lip Closure Interlabial escape; no progression to anterior lip Tongue Control During Bolus Hold Posterior escape of less than half of bolus Bolus Preparation/Mastication Disorganized chewing/mashing with solid pieces of bolus unchewed Bolus Transport/Lingual Motion Slowed tongue motion Oral Residue Residue collection on oral structures Location Tongue Initiation of Pharyngeal Swallow Bolus head at posterior laryngeal surface of epiglottis Additional Oral Impairment Observations OME and DKS were observed reduced strength and control of bolus AP. Dentition was natural in good hygiene. Mastication was slower that expected with tongue rocking observed with semi-solid and solid trials. With thin liquids, there was premature spillage over base of tongue with kenisha tracheal aspiration x3. No reflexive cough observed. Pharyngeal Impairment Source: The Modified Barium Swallow Impairment Profile (MBSImP??) Soft Palate Elevation No bolus between soft palate & pharyngeal wall Laryngeal Elevation Part.sup.move.thyroid cart/ part.approx.arytenoids to epiglot.petiole Anterior Hyoid Excursion Partial anterior movement Epiglottic Movement Partial inversion Laryngeal Vestibular Closure Incomplete; narrow column air/ contrast in laryngeal vestibule Pharyngeal Stripping Wave Present - diminished Pharyngoesophageal Segment Opening Partial distention/partial duration; partial obstruction of flow Tongue Base Retraction Trace column of contrast/air betwn tongue base & post. pharyngeal wall Pharyngeal Residue Majority of contrast within/on pharyngeal structures Location Valleculae Additional Pharyngeal Impairment Overall, diminished strength Observations and coordination of the pharyngeal structures noted. Weak tongue base retraction is related to diminished hyolaryngeal elevation and movement. Epiglottal inversion was not noted with thin liquids resulting in kenisha aspiration x3 without reflexive cough. Pt is at risk for SILENT ASPIRATION. With nectar thick liquids, the epiglottis was observed to invert with good laryngeal seal/closure (heavier, slower nectar boluses). Pooling of residual contrast observed in the valeculla, along the posterior pharyngeal wall, and within the laryngeal vestibule. A/P View The IDDSI Framework Protocol: IDDSI.1 A/P View Observations Additional A-P Observations In the lateral position in the chair (due to pt's inability to stand), The pt swallowed a barium tablet, which cleared the esophagus to the stomach in a timely manner. Clinical Impressions Dysphagia Type Oral,Pharyngeal Findings Pt presented with moderate oral and pharyngeal dysphagia . pt was observed to aspirate thin liquids without reflexive cough x3. Crivitz thick liquids were safely tolerated. Pt was able to masticate regular texture. Pt is discharging home. Recommend speech therapy to follow up with pt and family re: aspiration risk and compensatory strategies and diet alterations as indicated. Patient Appropriate for Therapy No: Compensatory strategies; safe swallow strategies Recommendations Diet Liquids Order Mildly Thick (IDDSI 2) Diet Order Regular (IDDSI 7) Medication Recommendation As Tolerated Aspiration Precautions Recommended Precautions Upright at 90 Degrees, Alternate Liquids/Solids,Small Bites/Sips,Double Swallow Treatment Plan Therapy Recommendations Outpatient Speech Therapy Therapy Strategy Recommendations Sitting Upright (90 deg), Double Swallow,Small Bites and Sips,Alternate Liquids/Solids Placement Recommendation After Discharge Home with Home Health
--- NOTE | 2023-10-06 15:08 | P.PN_ITS ---
Subjective Subjective Date Patient Seen: 10/05/23 Time Patient Seen: 16:00 Interval history: IMPACT HAMMER OPERATOR eval today with aspiration of thin liquids but did very well with food and thickened liquids. Modified diet entered. Exam Vital Signs (past 8 hours): - 10/06/23 07:18 10/06/23 08:00 10/06/23 08:38 Temperature 98.7 F Pulse Rate 109 H 104 H 102 H Respiratory Rate 21 18 Blood Pressure 116/56 L Pulse Oximetry 96 97 97 Oxygen Delivery Method Nasal Cannula Humidification Nasal Cannula Oxygen Flow Rate 1 2 2 Fraction of Inspired Oxygen 24 28 10/06/23 09:00 10/06/23 09:05 10/06/23 12:00 Temperature 97.3 F L Pulse Rate 102 H 66 Respiratory Rate 20 Blood Pressure 101/60 104/66 Pulse Oximetry 95 94 Oxygen Delivery Method Nasal Cannula Oxygen Flow Rate 1 1 Fraction of Inspired Oxygen 10/06/23 12:59 10/06/23 13:16 Temperature Pulse Rate Respiratory Rate Blood Pressure Pulse Oximetry 96 100 Oxygen Delivery Method Nasal Cannula Nasal Cannula Oxygen Flow Rate 1 1 Fraction of Inspired Oxygen Fraction of Inspired Oxygen 28 SaO2/FiO2 Ratio 346 Oxygen Delivery Method Nasal Cannula Oxygen Flow Rate 1 Narrative Exam Narrative: He is alert and oriented x3. No apparent distress. He is quite weak. Heart is irregularly irregular without murmur. Lungs are clear to auscultation bilaterally. Extremities have no ankle edema. Objective Labs 10/06/23 04:45 10/06/23 04:45 Labs: Laboratory Results - last 24 hr 10/06/23 04:45 WBC 5.4 RBC 3.19 L Hgb 8.1 L Hct 26.7 L MCV 83.8 MCH 25.5 L MCHC 30.4 RDW 18.8 H Plt Count 108 L Neut % (Auto) 69.4 Lymph % (Auto) 10.6 L [place] % (Auto) 15.2 H Eos % (Auto) 4.3 H Baso % (Auto) 0.5 Neut # (Auto) 3700 Lymph # (Auto) 600 L [place] # (Auto) 800 Eos # (Auto) 200 Baso # (Auto) 0 Sodium 137 Potassium 4.1 Chloride 96 L Carbon Dioxide 41 H* BUN 21 H Creatinine 0.80 Estimated GFR > 60 BUN/Creatinine Ratio 26.3 H Glucose 110 Calcium 8.8 Magnesium 2.1 PFSH Medical History Lumbar compression fracture Lumbar spondylosis Anemia Right inguinal hernia History of colonic polyps 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 Mixed hyperlipidemia Essential hypertension Chronic diastolic CHF (congestive heart failure), NYHA class 1 Chronic anticoagulation Chronic atrial fibrillation Vision disorder Fractures Positive PPD Mumps Measles Chicken pox Tinnitus Hearing loss History of urinary incontinence (~2018) Diverticular disease Crohn's disease Myocardial infarction Coronary artery disease Asthma Surgical History Hx of heart artery stent (~1994) Anesthesia H/O mitral valve replacement (~03/2017) Family History Mother Congestive heart failure Father Coronary artery disease Social History household members: spouse Smoking Status: Never smoker alcohol intake: former substance use type: does not use Type(s) of exercise: walking frequency: daily Assessment & Plan Assessment & Plan narrative: #Acute on chronic Diastolic heart failure, acute respiratory failure with hypoxia, aspiration pneumonia. - presume some of his symptoms are related to heart failure exacerbation. - continues on 40 mg IV lasix BID. Rising bicarb, will transition back to home torsemide PO starting tomorrow as appears to be near euvolemia. - continue to follow electrolytes with diuresis and renal function. - TTE already done, EF around 50%, no significant changes to prior TTEs but does appear to be volume overloaded. - with negative troponins, and EKG ACS ruled out. -the patient was prepared for discharge 10/05/23 and orders were written but he was unable to eat lunch or drink liquids without incessant coughing so was kept in the hospital for swallow evaluation and potential barium studies. -chest x-ray suggests increasing opacity in the left middle lung which appears to be chronic. Zosyn initiated. IMPACT HAMMER OPERATOR consult today revealed aspiration with thin liquids. -home O2 evaluation qualified with sat 86% on room air rising to 91% on 1 L nasal cannula at rest #Normocytic Anemia - Hgb 8.5 on admission, 8.1 on 10/04/23 - This is in his chronic usual range, going back to 2022. - Continue outpatient PCP management #Atrial fibrillation, active, chronic/permanent, on apixaban, present on admission - continue home coreg, apixaban #CAD, chronic, pulmonary hypertension, present on admission - continue home apixaban, replace home statin with formulary equivalent. #BPH, active, chronic, present on admission - continue home flomax. #Crohn's colitis disease/IBD, chronic, present on admission * Continue mesalamine #Hyperlipidemia, mixed, chronic, present on admission * continue simvastatin 20 mg #Pancytopenia, chronic * Continue ferrous sulfate #Osteoarthritis, with muscle spasms, chronic, present on admission * Continue Flexeril #GERD, chronic, present on admission * Continue PPI #Obesity, moderate, acute on chronic, present on admission * As evidence by BMI 37 * dietary consult ordered regarding nutritional education and information for dietary, lifestyle, exercise, and weight changes. * the patient is at much higher risk for medical and surgical complications due to obesity as it relates to chronic illnesses:, and acute illness. The patient's obesity increases the difficulty and complexity of medical and/or surgical interventions, management and increases the chances of poor outcome such as morbidity and mortality as well as impaired wound healing.Code status:Full Surrogate decision maker: Italia Medeiros DVT/VTE prophylaxis: Coumadin Disposition: possible discharge home tomorrow if improvement in breathing symptoms after dietary changes Additional history obtained from discussion with speech therapy, and case management, discussions helped to clarify the above assessment and plan.
[2023-10-06] MEDS: ACETAMINOPHEN 325 MG TABLET 650 MG PO (21:25)
[2023-10-06] MEDS: ATORVASTATIN 20 MG TABLET 40 MG PO (21:26)
[2023-10-07] VITALS (7 sets, daily range): BP systolic 94–125; BP diastolic 54–77; PULSE 76–91; RESP 17–20; TEMP 36.3–36.4; O2SAT 93–94
[2023-10-07] MEDS: PIPERACILLIN/TAZO 3.375 GM in SODIUM CHLORIDE 0.9% 100 ML IV ×2 (00:01→08:35)
[2023-10-07] MEDS: ALBUTEROL/IPRATROPIUM 3 ML AMPUL INH (06:23)
--- NOTE | 2023-10-07 08:06 | PT.IPTN ---
Current Diagnoses Acute on chronic diastolic (congestive) heart failure (10/04/23) Physical Therapy Treatment Note M2 PT-IP Current Condition Start: 10/04/23 15:55 Freq: NEEDED Status: Active Protocol: Document 10/07/23 07:49 SP (Rec: 10/07/23 08:19 SP [id number]) Physical Therapy Current Condition Current Condition Evaluation Date 10/04/23 Treatment Diagnosis CHF; difficulty in walking Onset Date 10/03/23 M3 PT-IP Subjective Start: 10/04/23 15:55 Freq: NEEDED Status: Active Protocol: Document 10/07/23 07:49 SP (Rec: 10/07/23 08:19 SP [id number]) Subjective Physical Therapy Visit Type Type Treatment Note Visit Start Time 07:49 Visit Stop Time 08:06 Notes VItals pre mobility: R UE BP 110/73 HR 93 Kathy 2 92- 93% on RA (see nasal canula nearby in bed). Number of YARD BRAKEMAN Visits 2 Physical Therapy Visit Comments Patient Comments Pt agreeable to working with YARD BRAKEMAN. M4 PT-IP Mobility and Gait Start: 10/04/23 15:55 Freq: NEEDED Status: Active Protocol: Document 10/07/23 07:49 SP (Rec: 10/07/23 08:19 SP [id number]) PT-Bed Mobility Assessment Supine to Sit Supine to Sit Standby Assistance,Bedrails Scooting Scooting to Edge of Bed Standby Assistance PT-Transfer Assessment Sit to and From Stand Sit to and from Stand Standby Assistance,1 Person Assistance,Use of Upper Extremities Equipment Transfer Assistive Device Gait Belt,4 Wheeled Walker Orthotic/Prosthetic Devices or Brace: No Transfers Transfer Destination Chair Transfer Technique ambulated in room /c 4WW Transfer Ability Level of Assist Standby Assistance,1 Person Assistance,Use of Upper Extremities Comments Mobility Comments use R bed rail trunk right to sit, SBA. STS SBA cued 4WW brake mgt redirection BUEs push off 4WW (tends to pull on 4WW) to come to stand, completes on 3rd attempt post cue scoot forward more over PETER, wt shift fwd over PETER better. GAit around room x2 total 60 ft /c 4WW SaO2 91-92% on RA, trunk slight sways during pivot but no LOB CG/ Close SBA. Static standing balance NBOS head turns and EC 30 sec slight sways but no LOB. Stride stance sways looking forward need 5%A safety steady himself and use 4WW. YARD BRAKEMAN continue recommended HHPT and 24 hr available due to unsteady during mobility. Pt states family can assist him. Gait Assessment Gait Gait Assistance Required: Standby Assistance,1 Person Assist Distance (Feet) 60 Able to Maintain Weight Bearing Status Yes During Gait Assistive Devices Assistive Device Gait Belt,4 Wheeled Walker Orthotic/Prosthetic Devices or Brace: No Gait Deviations General Gait Pattern Antalgic,Decreased Stride Length,Decreased Feet Clearance,Flexed Trunk,Lateral Trunk Lean,Narrow Based Gait Factors Limiting Gait Function Factors Limiting Gait Function Decreased Activity Tolerance, Decreased Strength,Difficulty Following Directions,Limited Range of Motion,Poor Balance, Poor Safety Awareness, Respiratory Distress Comments Gait Comments see mobility comments Stair Climbing Assessment Comments Stair Climbing Comments ramp enter no need asses stairs PT-Balance Assessment Sitting Balance and Reactions Static Sitting Balance Ability Good Dynamic Sitting Balance Ability Good Standing Balance and Reactions Static Standing Balance Ability Fair Dynamic Standing Balance Ability Fair Device Used 4WW Comments Other Balance Tests/Deviations/Treatment see mobility comments static : stance assessment M5 PT-IP Objective Assessments Start: 10/04/23 15:55 Freq: NEEDED Status: Active Protocol: Document 10/04/23 15:20 AB (Rec: 10/04/23 16:08 AB [id number]) Orientation Orientation/Cognition Level of Alertness Alert Orientation Name Language Function Ability Hard of Hearing Safety Awareness Decreased Safety Awareness Memory Description Short Term Impaired Comments pt is impulsive Muscle Tone Muscle Tone WNL Yes M6 PT-IP Treatment Start: 10/04/23 15:55 Freq: NEEDED Status: Active Protocol: Document 10/07/23 07:49 SP (Rec: 10/07/23 08:19 SP [id number]) Physical Therapy Treatment Education Education Provided Safety M7 PT-IP Assessment and Plan Start: 10/04/23 15:55 Freq: NEEDED Status: Active Protocol: Document 10/07/23 07:49 SP (Rec: 10/07/23 08:19 SP [id number]) PT Summary Assessment and Plan Potential Rehabilitation Potential Fair Summary Impairments Pain,ROM,Strength,Balance, Coordination,Sensation,Tone, Cognition,Bed Mobility, Transfers,Gait,Activity Tolerance Progress Towards Goals Progressing Toward Goals,Slow Progress due to Activity Tolerance Assessment Summary Pt improved SaO2 91% on RA during mobility. CGA/close sBA throughout mobility, safety cues proper use brakes and increase PETER during pivot turns /c 4WW for safety, static balance stride stance LOB Min A recovery. YARD BRAKEMAN continue recommended HHPT and 24 hr available due to unsteady during mobility. Pt states family can assist him. Goals Bed Mobility Goal Independent Transfer Goal Independent,Front Wheeled Walker Gait Goal Independent,Front Wheel Walker Gait Distance 100 Other Goals improve transfers and ambulation using 4WW/LRAD 200 ft SBA Days to Meet Goals 10 Frequency of Treatment Frequency Of Treatment Once a Day Treatment Plan Physical Therapy Treatment Plan Bed Mobility Training,Transfer Training,Gait Training, Therapeutic Exercise,Balance Retraining,Discharge Planning, Hot or Cold Pack,Neuromuscular Re-ed,Coordination Retraining Other Recommendations and Next Treatment further distance gait, balance Focus activities, continue ed 4WW brake mgt. Precautions Other Precautions falls; O2 sat Recommendations To Nursing Amount of Assist Needed Standby Assistance,1 Person Assist Discharge Recommendations PT Discharge Recommendations Home with 24/7 Assist Available,Home Health Transportation Needs at Discharge Private Vehicle
--- NOTE | 2023-10-07 08:06 | PT.IPTN ---
Current Diagnoses Acute on chronic diastolic (congestive) heart failure (10/04/23) Physical Therapy Treatment Note M2 PT-IP Current Condition Start: 10/04/23 15:55 Freq: NEEDED Status: Active Protocol: Document 10/07/23 07:49 SP (Rec: 10/07/23 08:19 SP [id number]) Physical Therapy Current Condition Current Condition Evaluation Date 10/04/23 Treatment Diagnosis CHF; difficulty in walking Onset Date 10/03/23 M3 PT-IP Subjective Start: 10/04/23 15:55 Freq: NEEDED Status: Active Protocol: Document 10/07/23 07:49 SP (Rec: 10/07/23 08:19 SP [id number]) Subjective Physical Therapy Visit Type Type Treatment Note Visit Start Time 07:49 Visit Stop Time 08:06 Notes VItals pre mobility: R UE BP 110/73 HR 93 Kathy 2 92- 93% on RA (see nasal canula nearby in bed). Number of DECK AND HULL ASSEMBLER Visits 2 Physical Therapy Visit Comments Patient Comments Pt agreeable to working with DECK AND HULL ASSEMBLER. M4 PT-IP Mobility and Gait Start: 10/04/23 15:55 Freq: NEEDED Status: Active Protocol: Document 10/07/23 07:49 SP (Rec: 10/07/23 08:19 SP [id number]) PT-Bed Mobility Assessment Supine to Sit Supine to Sit Standby Assistance,Bedrails Scooting Scooting to Edge of Bed Standby Assistance PT-Transfer Assessment Sit to and From Stand Sit to and from Stand Standby Assistance,1 Person Assistance,Use of Upper Extremities Equipment Transfer Assistive Device Gait Belt,4 Wheeled Walker Orthotic/Prosthetic Devices or Brace: No Transfers Transfer Destination Chair Transfer Technique ambulated in room /c 4WW Transfer Ability Level of Assist Standby Assistance,1 Person Assistance,Use of Upper Extremities Comments Mobility Comments use R bed rail trunk right to sit, SBA. STS SBA cued 4WW brake mgt redirection BUEs off 4WW to come to stand, completes on 3 attempt wt shift fwd over PETER better. GAit around room x2 total 60 ft /c 4WW SaO2 91-92% on RA, trunk sways but no LOB. Static standing balance NBOS head turns and EC 30 sec slight sways but no LOB. stride stance sways need Min A and use 4WW contact recover. DECK AND HULL ASSEMBLER continue recommended HHPT and 24 hr available due to unsteady during mobility. Pt states family can assist him. Gait Assessment Gait Gait Assistance Required: Standby Assistance,1 Person Assist Distance (Feet) 60 Able to Maintain Weight Bearing Status Yes During Gait Assistive Devices Assistive Device Gait Belt,4 Wheeled Walker Orthotic/Prosthetic Devices or Brace: No Gait Deviations General Gait Pattern Antalgic,Decreased Stride Length,Decreased Feet Clearance,Flexed Trunk,Lateral Trunk Lean,Narrow Based Gait Factors Limiting Gait Function Factors Limiting Gait Function Decreased Activity Tolerance, Decreased Strength,Difficulty Following Directions,Limited Range of Motion,Poor Balance, Poor Safety Awareness, Respiratory Distress Comments Gait Comments see mobility comments Stair Climbing Assessment Comments Stair Climbing Comments ramp enter no need asses stairs PT-Balance Assessment Sitting Balance and Reactions Static Sitting Balance Ability Good Dynamic Sitting Balance Ability Good Standing Balance and Reactions Static Standing Balance Ability Fair Dynamic Standing Balance Ability Fair Device Used 4WW Comments Other Balance Tests/Deviations/Treatment see mobility comments static : stance assessment M5 PT-IP Objective Assessments Start: 10/04/23 15:55 Freq: NEEDED Status: Active Protocol: Document 10/04/23 15:20 AB (Rec: 10/04/23 16:08 AB [id number]) Orientation Orientation/Cognition Level of Alertness Alert Orientation Name Language Function Ability Hard of Hearing Safety Awareness Decreased Safety Awareness Memory Description Short Term Impaired Comments pt is impulsive Muscle Tone Muscle Tone WNL Yes M6 PT-IP Treatment Start: 10/04/23 15:55 Freq: NEEDED Status: Active Protocol: Document 10/07/23 07:49 SP (Rec: 10/07/23 08:19 SP [id number]) Physical Therapy Treatment Education Education Provided Safety M7 PT-IP Assessment and Plan Start: 10/04/23 15:55 Freq: NEEDED Status: Active Protocol: Document 10/07/23 07:49 SP (Rec: 10/07/23 08:19 SP [id number]) PT Summary Assessment and Plan Potential Rehabilitation Potential Fair Summary Impairments Pain,ROM,Strength,Balance, Coordination,Sensation,Tone, Cognition,Bed Mobility, Transfers,Gait,Activity Tolerance Progress Towards Goals Progressing Toward Goals,Slow Progress due to Activity Tolerance Assessment Summary Pt improved SaO2 91% on RA during mobility. CGA throughout mobility, safety cues proper use brakes /c 4WW, static balance stride stance LOB Min A recovery. DECK AND HULL ASSEMBLER continue recommended HHPT and 24 hr available due to unsteady during mobility. Pt states family can assist him. Goals Bed Mobility Goal Independent Transfer Goal Independent,Front Wheeled Walker Gait Goal Independent,Front Wheel Walker Gait Distance 100 Other Goals improve transfers and ambulation using 4WW/LRAD 200 ft SBA Days to Meet Goals 10 Frequency of Treatment Frequency Of Treatment Once a Day Treatment Plan Physical Therapy Treatment Plan Bed Mobility Training,Transfer Training,Gait Training, Therapeutic Exercise,Balance Retraining,Discharge Planning, Hot or Cold Pack,Neuromuscular Re-ed,Coordination Retraining Other Recommendations and Next Treatment further distance gait, balance Focus activities, continue ed 4WW brake mgt. Precautions Other Precautions falls; O2 sat Recommendations To Nursing Amount of Assist Needed Standby Assistance,1 Person Assist Discharge Recommendations PT Discharge Recommendations Home with 24/ Assist Available,Home Health Transportation Needs at Discharge Private Vehicle
[2023-10-07] MEDS: FINASTERIDE 5 MG TABLET PO (08:32)
[2023-10-07] MEDS: TORSEMIDE 10 MG TABLET 20 MG PO (08:32)
[2023-10-07] MEDS: MESALAMINE 400 MG CAP.DRTAB. 800 MG PO (08:32)
[2023-10-07] MEDS: APIXABAN 5 MG TABLET PO (08:32)
[2023-10-07] MEDS: FERROUS SULFATE 325 MG TABLET PO (08:32)
[2023-10-07] MEDS: carvediloL 3.125 MG TABLET PO (08:33)
[2023-10-07] MEDS: ISOSORBIDE MONONITRATE ER 30 MG TABLET PO (08:34)
[2023-10-07] MEDS: TAMSULOSIN 0.4 MG CAPSULE PO (08:35)
[2023-10-07] MEDS: POTASSIUM CHLORIDE 20 MEQ TAB 40 MEQ PO (08:35)
[2023-10-07] MEDS: PREGABALIN 25 MG CAPSULE PO (08:35)
[2023-10-07] MEDS: SODIUM CHLORIDE 0.9% FLUSH 10 ML IV (08:35)
--- NOTE | 2023-10-07 08:45 | PM.DS.1 ---
History of Present Illness History of Present Illness Date Patient Seen: 10/07/23 Time Patient Seen: 08:30 Chief complaint: chest pain 2hrs Narrative: Mr. Powell is an 82M with PMH CHFpEF, CAD, afib who presents to the hospital with difficulty taking a breath in. Noticed this around 1am this morning. He thinks his legs are a bit more swollen recently. He denies overt chest pain, does not feel like a pressure or pain. There is no radiation of his symptoms, just simply feels like he can't take a breath in. No fever, chills, abdominal pain, nausea, or vomiting. Denies palpiatations. In the emergency room, troponin was negative, EKG without acute ischemia. CXR did not show any gross volume overload. labs notable for elevated proBNP, pancytopenia with Hg of 7.6 (slightly lower than baseline). He was admitted for further evaluation of probable CHF excaerbation. Discharge Providers Provider Date of admission: 10/04/23 13:11 Discharge Date: 10/07/23 Primary care physician: Barrera Roth MD Consults: 10/04/23 15:10 Consult to Physical Therapy Evaluate & Treat Comment: Physician Instructions: Evaluate and Treat Consult to Speech Therapy Evaluate & Treat Comment: Physician Instructions: Evaluate and treat 10/05/23 12:48 Consult to Speech Therapy Evaluate & Treat Comment: Physician Instructions: Evaluate and treat 10/06/23 11:41 Consult to Occupational Therapy Evaluate & Treat Comment: Physician Instructions: Evaluate and treat 10/06/23 13:19 Consult to Home Health Routine Comment: CHF, AFIB, new home O2, dysphagia Reason For Exam: Set up RN/PT/ST for d/c to home Discharge provider: Aniket Pedro DO Summary Hospital Course Discharge Diagnosis: #Acute on chronic Diastolic heart failure, acute respiratory failure with hypoxia, aspiration pneumonia. #Normocytic Anemia #Atrial fibrillation, active, chronic/permanent, on apixaban, present on admission #CAD, chronic, pulmonary hypertension, present on admission #BPH, active, chronic, present on admission #Crohn's colitis disease/IBD, chronic, present on admission Hospital Course: This is an 83 year old male with PMH of crohn's disease, CAD< chronic afib, BPH, diastolic heart failure who was initially admitted for acute respiratory failure with hypoxia and shortness of breath. Initially presumed to be largely due to volume overload and heart failure, he was diuresed with subjective improvement but was still requiring some O2. 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 He was okay with nectar thick consistency. He was started on zosyn for presumed aspiration pneumonia, and with continued diuresis he was able to largely be off oxygen but still required some intermittent therapy. He was discharged home with home health and home oxygen, which he should use only if O2 is <90% on room air. No other medication changes were recommended at the time of discharge. After PT/OT, he was recommended for discharge home with assistance. He was sent another 3 days of augmentin at discharge to complete treatment for aspiration pneumonia. Time Spent with Patient Time spent: Greater than 30 minutes Exam Vital Signs (past 8 hours): - 10/07/23 01:00 10/07/23 04:48 10/07/23 06:23 Temperature 97.4 F L Pulse Rate 76 Respiratory Rate 20 Blood Pressure 125/77 Pulse Oximetry 94 94 Oxygen Delivery Method Nasal Cannula Room Air Oxygen Flow Rate 1 1 10/07/23 08:00 10/07/23 08:33 Temperature 97.6 F Pulse Rate 91 H 91 H Respiratory Rate 18 Blood Pressure 110/73 110/73 Pulse Oximetry 93 Oxygen Delivery Method Oxygen Flow Rate 1 Fraction of Inspired Oxygen 28 SaO2/FiO2 Ratio 346 Oxygen Delivery Method Room Air Oxygen Flow Rate 1 Narrative Exam Narrative: He is alert and oriented x3. No apparent distress. He is quite weak. Heart is irregularly irregular without murmur. Lungs are clear to auscultation bilaterally. Extremities have no ankle edema. Objective Labs 10/06/23 04:45 10/06/23 04:45 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 Mixed hyperlipidemia Essential hypertension Chronic diastolic CHF (congestive heart failure), NYHA class 1 Chronic anticoagulation Chronic atrial fibrillation Vision disorder Fractures Positive PPD Mumps Measles Chicken pox Tinnitus Hearing loss History of urinary incontinence (~2018) Diverticular disease Crohn's disease Myocardial infarction Coronary artery disease Asthma Surgical History Hx of heart artery stent (~1994) Anesthesia H/O mitral valve replacement (~03/2017) Family History Mother Congestive heart failure Father Coronary artery disease Social History household members: spouse Smoking Status: Never smoker alcohol intake: former substance use type: does not use Type(s) of exercise: walking frequency: daily Discharge Plan Discharge Plan Patient Disposition: Home Health Service Provider Discharge Comment: Followup with Dr. Roth in one week. Only use oxygen if O2 is <90%. While using O2 with pulse ox should only be between 90-96%. Discharge orders & Medications Prescriptions: New amoxicillin-pot clavulanate 875-125 mg tablet 1 tab PO Q12H 3 Days Qty: 6 0RF Continued albuterol sulfate [Proventil HFA] 90 MCG/PUFF HFA aerosol inhaler 2 puff INH PRN PRN (Reason: Shortness Of Breath) Qty: 0 Patient Comments: no longer taking mesalamine [Pentasa] 500 MG capsule, extended release 1,000 mg PO BID Qty: 0 Patient Comments: not sure if he is taking tamsulosin 0.4 mg capsule 0.4 mg PO DAILY Qty: 90 3RF potassium chloride 20 mEq tablet extended release 40 meq PO TID Qty: 360 1RF carvedilol 3.125 mg tablet 3.125 mg PO BID Qty: 180 3RF Rx Instructions: must administer with a meal/food simvastatin 40 mg tablet 20 mg PO BEDTIME omeprazole 20 mg tablet,delayed release (DR/EC) 20 mg PO DAILY Patient Comments: pt does not recognize this med Eliquis 5 mg tablet 5 mg PO BID Qty: 180 3RF Rx Instructions: pt does not recognize acetaminophen [Tylenol Extra Strength] 500 mg tablet 1,000 mg PO Q8H Qty: 90 0RF ferrous sulfate 325 mg (65 mg iron) Tablet 325 mg PO BID Rx Instructions: no longer taking this finasteride 5 mg Tablet 5 mg PO DAILY Patient Comments: not sure if he is taking torsemide 100 mg Tablet 100 mg PO DAILY PRN (Reason: Weight Gain) isosorbide mononitrate 60 mg Tablet Extended Release 24 Hr 30 mg PO DAILY Rx Instructions: unsure if he is taking pregabalin 25 mg capsule 25 mg PO TID Qty: 90 1RF Rx Instructions: 1 PO QHS x3 days If tolerated, 1 PO BID x3 days If tolerated, 1 PO TID Follow up/Referrals: Barrera Roth MD [Primary Care Provider] - 10/14/23 3:00 pm (Appt:10/13 @ 3:[address] Roth please arrive 15 min prior to your scheduled appointment time ) Diet/Activity/Treatments Diet: Diet as Tolerated, Low-sodium and Low-cholesterol Oxygen: Only if needed o2 90-96% while using. Visit Report/Discharge Packet Instructions: Home Oxygen Therapy, DI for Heart Failure, DI for Aspiration Pneumonia, How to Prevent Falls, Amoxicillin and Clavulanic Acid Stand Alone Forms: Patient Portal/API, Stroke Signs & Symptoms Discharge Data Primary Care Provider: Barrera Roth [facility] - DC The patient has current or prior documentation of left ventricular ejection fraction (LVEF) less than or equal to 40%, or moderate or severely depressed left ventricular systolic function.: No
--- NOTE | 2023-10-07 10:37 | CM.DPC ---
DCP Discharge home with HH Per MD, pt medically stable to d/c home today with new home oxygen and HH and no identified barriers to discharge. SW spoke to [facility] intake and updated on d/c to home today and they confirm they can accept his referral and already have the orders and F2F and just need d/c summary when available. Per RN, already spoke to pt's Dtr and aware of discharge today and will provide transport later today. RN already contacted RT to confirm home oxygen all set still. Per CREDIT COLLECTOR, pt was able to ambulate some today without significant drop in sats and recommending home with assist and HH. Plan: Patient to d/c home today via family POV and new [facility] to follow and new home oxygen arranged by RT. STEVE Martinez
--- NOTE | 2023-10-07 12:34 | PC.NURSE ---
Pt is dressed and ready for discharge home w/ daughter. IV and tele have been removed. Went over dc instructions-- discussed dc meds, time of last dose, reviewed stroke education and CHF guideline sheet. discussed home O2 use and safety and follow up appointment. Pt denied further questions and will be ready to discharge home w/ daughter and all belongings when daughter arrives.
== END 2023-10-07 13:02 | disposition home health service (06) | DRG 291 ==
LOC: ED 04:40 → AC 06:48
PROVIDERS: Internal Medicine; Admitting Provider Hospitalist; Emergency Provider Family Medicine Addiction Medicine; PCP Internal Medicine; Visit Provider Hospitalist
DX: I11.0 Hypertensive heart disease with heart failure (principal); I50.33 Acute on chronic diastolic (congestive) heart failure; J96.01 Acute respiratory failure with hypoxia; J69.0 Pneumonitis due to inhalation of food and vomit; I48.21 Permanent atrial fibrillation; K50.90 Crohn's disease, unspecified, without complications; D61.818 Other pancytopenia; I25.10 Atherosclerotic heart disease of native coronary artery without angina pectoris; I27.20 Pulmonary hypertension, unspecified; N40.0 Benign prostatic hyperplasia without lower urinary tract symptoms; E78.2 Mixed hyperlipidemia; M19.91 Primary osteoarthritis, unspecified site; M62.838 Other muscle spasm; K21.9 Gastro-esophageal reflux disease without esophagitis; E66.8 Other obesity; J45.909 Unspecified asthma, uncomplicated; Z68.27 Body mass index [BMI] 27.0-27.9, adult; Z79.01 Long term (current) use of anticoagulants
CPT/HCPCS: 36415; 71045; 74230; 80048; 80053; 82550; 82805; 83690; 83735; 83880; 84484; 85014; 85018; 85025; 85610; 85730; 92611; 93005; 93306; 94618; 94640; 94760; 97116; 97162; 97166; 97530; 97535; 99284; G0378; J1940; J2543; J7613

== ENCOUNTER 2023-10-08 10:16 | Inpatient (IN) | payer MEDICARE, OTHER, SELFPAY ==
[2023-01-17 02:34] VITALS: PULSE 75; RESP 37; O2SAT 94
[2023-10-03 10:36] VITALS: BMI 27.3
[2023-10-08] VITALS (16 sets, daily range): BP systolic 88–138; BP diastolic 57–88; PULSE 68–129; RESP 20–31; TEMP 36.2–37.1; O2SAT 92–100; BMI 26.6
--- NOTE | 2023-10-08 10:39 | PC.NURSE ---
recently DC'd from acute care w/ [facility]. c/o rectal bleeding at 0430 this AM with BRB in toilet. Taking eliquis. h.o afib, chf, copd, hemorrhoids, htn, cardiac stents, and UTI. AAOx3, in afib 114 with frequent pvc's. RA 88%--pt is supposed to be on home O2 however he states he ran out. 99% when placed on 2L NC. BS 90. Erwin in place and draining clear yellow urine. 18G LAC placed by EMS and labs drawn from PIV by this RN. Reports he did not get his abx this morning.
[2023-10-08] MEDS: PANTOPRAZOLE 40 MG VIAL 80 MG IV (10:44)
[2023-10-08 10:56] LABS: Add Manual Diff / Slide Review NO; Basophils Absolute Auto 100 /uL (0-100); Basophils Percent Auto 1.4 % (0-2); Eosinophils Absolute Auto 200 /uL (0-450); Eosinophils Percent Auto 5.3 % (2-4); Hemoglobin 8.6 g/dL (13.5-17.5); Lymphocytes Absolute Auto 500 /uL (1100-4500); Lymphocytes Percent Auto 12.9 % (25-40); Mean Corpuscular HGB Conc 30.7 % (30-36); Mean Corpuscular Hemoglobin 25.8 PG (26-34); Mean Corpuscular Volume 84.1 fL (80-100); Monocytes Absolute Auto 400 /uL (0-900); Monocytes Percent Auto 11.2 % (3-14); Neutrophils Absolute Auto 2700 /uL (1500-7000); Neutrophils Percent Auto 69.2 % (50-75); Platelet Count 119 X10^3/uL (150-400); Red Blood Cell Count 3.33 X10^6/uL (4.5-5.9); Red Cell Distribution Width 19.5 % (11.6-14.8); White Blood Cell Count 3.9 X10^3/uL (4.5-11.0)
[2023-10-08 11:05] LABS: INR 1.5 (0.9-1.3); Prothrombin Time 17.6 SECONDS (9.4-12.5)
[2023-10-08 11:07] LABS: PTT Partial Thromboplastin Tim 36 SECONDS (25.1-36.5)
[2023-10-08 11:10] LABS: Alanine Aminotransferase 20 IU/L (<50); Albumin 3.6 g/dL (3.5-5.0); Albumin Globulin Ratio 1.2 (1.0-2.8); Alkaline Phosphatase 80 U/L (38-126); Aspartate Aminotransferase 30 IU/L (17-59); BUN Creatinine Ratio 31.6 (6-22); Bilirubin Total 0.7 mg/dL (0.2-1.3); Blood Urea Nitrogen 24 mg/dL (9-20); Calcium 9.2 mg/dL (8.4-10.2); Carbon Dioxide 38 mmol/L (22-32); Chloride 101 mmol/L (98-107); Estimated Glomerular Filt Rate > 60 mL/min (>60); Glucose 88 mg/dL (80-110); HEMOLYSIS < 15 (0-50); Potassium 4.1 mmol/L (3.4-5.1); Sodium 139 mmol/L (137-145); Total Protein 6.6 g/dL (6.3-8.2)
--- NOTE | 2023-10-08 12:03 | ED.GIBLEED ---
HPI - GI Bleed General Chief complaint: GI Bleed Stated complaint: Rectal Bleeding Time Seen by Provider: 10/08/23 10:41 Source: patient Mode of arrival: EMS History of Present Illness HPI Narrative: Patient discharged from this hospital a couple of days ago for aspiration pneumonia/hypoxia. Patient is on apixaban for chronic atrial fibrillation. Denies any shortness of breath or chest pain. However at 4:30 a.m. this morning had very large bright red blood GI bleed. No hematemesis. Patient in no distress at this time. Heart rate 98 when at rest. Patient went home with 2 L nasal cannula continuous. Has been requiring the since discharge home. He was also prescribed Augmentin. Complains of diffuse abdominal pain. Patient in no distress. Patient lives with his and daughter. There is no home health care at this time. Related Data Home Medications Medication Instructions Recorded Confirmed albuterol sulfate 90 mcg/actuation 2 puff INH PRN PRN Shortness Of 03/22/17 10/08/23 aerosol inhaler (Proventil HFA) Breath ##0 mesalamine 500 mg capsule,extended 1,000 mg PO BID ##0 03/24/17 10/08/23 release (Pentasa) ferrous sulfate 325 mg (65 mg 325 mg PO BID 05/18/18 10/08/23 iron) tablet finasteride 5 mg tablet 5 mg PO DAILY 05/18/18 10/08/23 simvastatin 40 mg tablet 20 mg PO BEDTIME 12/07/21 10/08/23 omeprazole 20 mg tablet,delayed 20 mg PO DAILY 04/24/22 10/08/23 release torsemide 100 mg tablet 100 mg PO DAILY PRN Weight Gain 05/01/23 10/08/23 Previous Rx's Medication Instructions Recorded tamsulosin 0.4 mg capsule 0.4 mg PO DAILY #90 caps 03/04/23 apixaban 5 mg tablet (Eliquis) 5 mg PO BID #180 tabs 03/20/23 potassium chloride 20 mEq 40 meq (2 x 20 mEq) PO TID #360 04/28/23 tablet,extended release tabs acetaminophen 500 mg tablet 1,000 mg (2 x 500 mg) PO Q8H #90 08/12/23 (Tylenol Extra Strength) tabs pregabalin 25 mg capsule 25 mg PO TID #90 caps 09/25/23 amoxicillin 875 mg-potassium 1 tab PO Q12H 3 days #6 tabs 10/07/23 clavulanate 125 mg tablet Allergies Allergy/AdvReac Type Severity Reaction Status Date / Time iodine Allergy Severe Blotches Verified 10/08/23 10:28 all over my body ibuprofen Allergy Mild NOT GOOD Verified 10/08/23 10:28 FOR STOMACH BLEEDING Sulfa (Sulfonamide Allergy Mild BURNED A Verified 10/08/23 10:28 Antibiotics) HOLE THRU INTESTINES thallium-201 Allergy Mild BREAKS OUT Verified 10/08/23 10:28 IN BLOTCHES AND ITCHING terazosin Allergy Hypotension Verified 10/08/23 10:28 spironolactone AdvReac Verified 10/08/23 10:28 Review of Systems Review of Systems Narrative: GENERAL: negative chills, fatigue, malaise, fever, sweats. HEENT: negative sinus pain, ear pain, sore throat RESPIRATORY: negative dyspnea, cough CARDIOVASCULAR: negative chest pain, palpitations GASTROINTESTINAL: negative nausea, vomiting, positive rectal bleed and abdominal pain : negative dysuria, frequency, hematuria MUSCULOSKELETAL: negative muscle or bony pain SKIN: negative rash, skin lesions NEUROLOGIC: negative weakness, numbness ROS Unobtainable: All systems reviewed & are unremarkable except as noted in HPI and below Patient History Medical History Lumbar compression fracture Lumbar spondylosis Anemia Right inguinal hernia History of colonic polyps 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 Mixed hyperlipidemia Essential hypertension Chronic diastolic CHF (congestive heart failure), NYHA class 1 Chronic anticoagulation Chronic atrial fibrillation Vision disorder Fractures Positive PPD Mumps Measles Chicken pox Tinnitus Hearing loss History of urinary incontinence (~2018) Diverticular disease Crohn's disease Myocardial infarction Coronary artery disease Asthma Surgical History Hx of heart artery stent (~1994) Anesthesia H/O mitral valve replacement (~03/2017) Family History Mother Congestive heart failure Father Coronary artery disease Social History household members: spouse Smoking Status: Never smoker alcohol intake: former substance use type: does not use Type(s) of exercise: walking frequency: daily Smoking Status: Never smoker alcohol intake frequency: holidays/special occasions only Substance Use Type: does not use Exam Narrative Exam Narrative: GENERAL: in no distress, not toxic not dyspneic HEAD: Normocephalic. EYES: Pupils equal round ENT: Mucous membranes moist. NECK: Trachea midline. CARDIOVASCULAR: Regular rate and rhythm RESPIRATORY: Clear to auscultation. Breath sounds equal bilaterally. No wheezes, rales, or rhonchi. GASTROINTESTINAL: Abdomen soft, mild diffuse abdominal tenderness. No pain out of proportion to exam. Bowel sounds are present. No peritoneal signs. Hemoccult-positive, dark stool on glove. No hematochezia EXTREMITIES: No gross deformities. BACK: No flank tenderness. NEURO: AOx4. SKIN: Warm and dry PSYCH: Not anxious, is cooperative Initial Vital Signs Initial Vital Signs: Vital Signs Temperature 97.8 F 10/08/23 10:16 Pulse Rate 123 H 10/08/23 10:16 Respiratory Rate 28 H 10/08/23 10:16 Blood Pressure 138/84 10/08/23 10:16 Pulse Oximetry 92 10/08/23 10:16 Oxygen Delivery Method Nasal Cannula 10/08/23 10:16 Oxygen Flow Rate 2 10/08/23 10:16 Course Orders Ordered: Acetaminophen (Acetaminophen 325 Mg Tablet) 650 mg PO Q6H PRN PRN Reason: Fever/Mild Pain (1-3) Last Admin: 10/13/23 08:29 Dose: 650 mg Documented By: Admin: 10/12/23 21:00 Dose: 650 mg Documented By: Admin: 10/12/23 05:16 Dose: 650 mg Documented By: BRADLEY Alprazolam (Alprazolam 0.25 Mg Tablet) 1 mg PO Q6H PRN PRN Reason: Anxiety Amoxicillin/Clavulanate Potassium (Amoxicillin/Clav 500/125 Mg) 1 tab PO BID SCOTT Last Admin: 10/13/23 08:22 Dose: 1 tab Documented By: Admin: 10/12/23 21:02 Dose: 1 tab Documented By: Admin: 10/12/23 10:00 Dose: Not Given Documented By: Admin: 10/11/23 20:25 Dose: 1 tab Documented By: Admin: 10/11/23 09:38 Dose: Not Given Documented By: Admin: 10/10/23 21:37 Dose: 1 tab Documented By: EVER Apixaban (Apixaban 5 Mg Tablet) 5 mg PO BID [facility] Last Admin: 10/13/23 08:23 Dose: 5 mg Documented By: Admin: 10/12/23 21:02 Dose: 5 mg Documented By: Admin: 10/12/23 10:00 Dose: Not Given Documented By: Admin: 10/11/23 20:25 Dose: 5 mg Documented By: Admin: 10/11/23 09:38 Dose: Not Given Documented By: Admin: 10/10/23 21:37 Dose: 5 mg Documented By: Admin: 10/10/23 08:41 Dose: 5 mg Documented By: Admin: 10/09/23 21:00 Dose: 5 mg Documented By: Admin: 10/09/23 09:21 Dose: 5 mg Documented By: Admin: 10/08/23 21:35 Dose: Not Given Documented By: ELYSSA Atorvastatin Calcium (Atorvastatin 20 Mg Tablet) 10 mg PO BEDTIME [facility] Last Admin: 10/12/23 21:02 Dose: 10 mg Documented By: Admin: 10/11/23 20:25 Dose: 10 mg Documented By: Admin: 10/10/23 21:38 Dose: 10 mg Documented By: Admin: 10/09/23 21:01 Dose: 10 mg Documented By: Admin: 10/08/23 21:35 Dose: Not Given Documented By: ELYSSA Ferrous Sulfate (Ferrous Sulfate 325 Mg Tablet) 325 mg PO BID [facility] Last Admin: 10/13/23 08:23 Dose: 325 mg Documented By: Admin: 10/12/23 21:02 Dose: 325 mg Documented By: Admin: 10/12/23 10:13 Dose: Not Given Documented By: Admin: 10/11/23 20:25 Dose: 325 mg Documented By: Admin: 10/11/23 09:41 Dose: Not Given Documented By: Admin: 10/10/23 21:38 Dose: 325 mg Documented By: Admin: 10/10/23 08:41 Dose: 325 mg Documented By: Admin: 10/09/23 21:03 Dose: 325 mg Documented By: Admin: 10/09/23 09:21 Dose: 325 mg Documented By: Admin: 10/08/23 21:35 Dose: Not Given Documented By: ELYSSA Finasteride (Finasteride 5 Mg Tablet) 5 mg PO DAILY [facility] Last Admin: 10/13/23 08:23 Dose: 5 mg Documented By: Admin: 10/12/23 10:00 Dose: Not Given Documented By: Admin: 10/11/23 09:55 Dose: Not Given Documented By: Admin: 10/10/23 08:41 Dose: 5 mg Documented By: Admin: 10/09/23 08:38 Dose: Not Given Documented By: BT Furosemide (Furosemide 40 Mg/4 Ml Vial) 40 mg IV DAILY [facility] Last Admin: 10/13/23 08:24 Dose: Not Given Documented By: Admin: 10/12/23 10:12 Dose: Not Given Documented By: Admin: 10/11/23 09:55 Dose: Not Given Documented By: AWF Metoprolol Succinate (Metoprolol Er 25 Mg Tablet) 25 mg PO BID [facility] Last Admin: 10/13/23 08:24 Dose: Not Given Documented By: Admin: 10/12/23 21:40 Dose: Not Given Documented By: Admin: 10/12/23 10:12 Dose: Not Given Documented By: Admin: 10/11/23 20:25 Dose: Not Given Documented By: Admin: 10/11/23 09:54 Dose: Not Given Documented By: Admin: 10/10/23 21:38 Dose: 25 mg Documented By: Admin: 10/10/23 08:41 Dose: 25 mg Documented By: Admin: 10/09/23 21:02 Dose: 25 mg Documented By: Admin: 10/09/23 09:21 Dose: 25 mg Documented By: NUHA Metoprolol Tartrate (Metoprolol Tartrate 5 Mg/5 Ml Inj) 5 mg IV Q6H PRN PRN Reason: Tachyarrhythmias Last Admin: 10/08/23 21:51 Dose: 5 mg Documented By: ELYSSA Morphine Sulfate (Morphine 10 Mg/0.5 Ml Oral Syringe) 10 mg PO Q1HR PRN PRN Reason: Pain, Severe (7-10) Last Admin: 10/13/23 10:37 Dose: 10 mg Documented By: LDJose Naloxone HCl (Naloxone 0.4 Mg/Ml Vial) 0.2 mg IV Q2MIN PRN PRN Reason: Opiate Reversal Nf - Mesalamine ( Pentasa) 500 Mg Er Capsule 1,000 mg PO BID [facility] Last Admin: 10/13/23 08:25 Dose: Not Given Documented By: Admin: 10/12/23 21:39 Dose: Not Given Documented By: Admin: 10/12/23 10:13 Dose: Not Given Documented By: Admin: 10/11/23 20:25 Dose: Not Given Documented By: Admin: 10/11/23 09:55 Dose: Not Given Documented By: Admin: 10/10/23 21:39 Dose: Not Given Documented By: Admin: 10/10/23 08:41 Dose: Not Given Documented By: Admin: 10/09/23 21:05 Dose: Not Given Documented By: Admin: 10/09/23 08:38 Dose: Not Given Documented By: Admin: 10/08/23 21:35 Dose: Not Given Documented By: ELYSSA Ondansetron HCl (Ondansetron 4 Mg/2 Ml Inj) 4 mg IV Q8HR PRN PRN Reason: Nausea And Vomiting Pregabalin (Pregabalin 25 Mg Capsule) 25 mg PO TID [facility] Last Admin: 10/13/23 08:23 Dose: 25 mg Documented By: Admin: 10/12/23 21:02 Dose: 25 mg Documented By: Admin: 10/12/23 16:33 Dose: Not Given Documented By: Admin: 10/12/23 10:00 Dose: Not Given Documented By: Admin: 10/11/23 20:25 Dose: 25 mg Documented By: Admin: 10/11/23 14:54 Dose: Not Given Documented By: Admin: 10/11/23 09:54 Dose: Not Given Documented By: Admin: 10/10/23 21:37 Dose: 25 mg Documented By: Admin: 10/10/23 15:36 Dose: 25 mg Documented By: Admin: 10/10/23 08:41 Dose: 25 mg Documented By: Admin: 10/09/23 21:02 Dose: 25 mg Documented By: Admin: 10/09/23 15:47 Dose: 25 mg Documented By: Admin: 10/09/23 09:21 Dose: 25 mg Documented By: Admin: 10/08/23 21:36 Dose: Not Given Documented By: ELYSSA Tamsulosin HCl (Tamsulosin 0.4 Mg Capsule) 0.4 mg PO DAILY [facility] Last Admin: 10/13/23 08:23 Dose: 0.4 mg Documented By: Admin: 10/12/23 10:00 Dose: Not Given Documented By: Admin: 10/11/23 09:41 Dose: Not Given Documented By: Admin: 10/10/23 09:49 Dose: 0.4 mg Documented By: NUHA Discontinued Medications Amoxicillin/Clavulanate Potassium (Amoxicillin/Clav 875/125 Mg) 1 tab PO NOW ONE Stop: 10/08/23 12:04 Last Admin: 10/08/23 12:11 Dose: 1 tab Documented By: LOWELL Amoxicillin/Clavulanate Potassium (Amoxicillin/Clav 875/125 Mg) 1 tab PO BID [facility] Last Admin: 10/10/23 08:41 Dose: 1 tab Documented By: Admin: 10/09/23 21:00 Dose: 1 tab Documented By: Admin: 10/09/23 09:21 Dose: 1 tab Documented By: Admin: 10/08/23 21:35 Dose: Not Given Documented By: Admin: 10/08/23 21:35 Dose: Not Given Documented By: ELYSSA Carvedilol (Carvedilol 3.125 Mg Tablet) 3.125 mg PO NOW ONE Stop: 10/08/23 13:10 Last Admin: 10/08/23 13:23 Dose: 3.125 mg Documented By: TARIQ Carvedilol (Carvedilol 3.125 Mg Tablet) 3.125 mg PO BID [facility] Furosemide (Furosemide 40 Mg/4 Ml Vial) 40 mg IV NOW ONE Stop: 10/08/23 15:25 Last Admin: 10/08/23 15:36 Dose: 40 mg Documented By: TARIQ Furosemide (Furosemide 40 Mg/4 Ml Vial) 40 mg IV 0800,1700 [facility] Stop: 10/10/23 17:00 Last Admin: 10/10/23 17:08 Dose: Not Given Documented By: Admin: 10/10/23 07:26 Dose: Not Given Documented By: Admin: 10/09/23 16:28 Dose: 40 mg Documented By: Admin: 10/09/23 09:21 Dose: 40 mg Documented By: BT Ceftriaxone Sodium 2,000 mg/ (Sodium Chloride) 100 mls @ 200 mls/hr IV NOW ONE Stop: 10/08/23 12:02 Last Infusion: 10/08/23 12:47 Dose: Infused Documented By: Admin: 10/08/23 12:10 Dose: 200 mls/hr Documented By: CTS Sodium Chloride (Normal Saline 0.9%) 500 mls @ 1,000 mls/hr IV BOLUS ONE Stop: 10/08/23 12:32 Last Infusion: 10/08/23 12:47 Dose: Infused Documented By: Admin: 10/08/23 12:12 Dose: 1,000 mls/hr Documented By: LOWELL Isosorbide Mononitrate (Isosorbide Mononitrate Er 30 Mg Tablet) 30 mg PO DAILY SCOTT Lorazepam (Lorazepam 2 Mg/Ml Inj) 1 mg IV NOW ONE Stop: 10/13/23 00:55 Last Admin: 10/13/23 11:37 Dose: Not Given Documented By: LDV Metoprolol Tartrate (Metoprolol Ir 25 Mg Tablet) 25 mg PO NOW ONE Stop: 10/08/23 19:56 Last Admin: 10/08/23 20:10 Dose: 25 mg Documented By: ELYSSA Metoprolol Tartrate (Metoprolol Ir 25 Mg Tablet) 25 mg PO TID SCOTT Morphine Sulfate (Morphine 2 Mg/Ml Inj) 2 mg IV NOW ONE Stop: 10/08/23 12:02 Last Admin: 10/08/23 12:11 Dose: 2 mg Documented By: LOWELL Ondansetron HCl (Ondansetron 4 Mg/2 Ml Inj) 4 mg IV NOW PRN PRN Reason: Nausea And Vomiting Last Admin: 10/08/23 12:11 Dose: 4 mg Documented By: LOWELL Ondansetron HCl (Ondansetron 4 Mg Odt) 4 mg SL NOW PRN PRN Reason: Nausea And Vomiting Pantoprazole Sodium (Pantoprazole 40 Mg Vial) 80 mg IV NOW ONE Stop: 10/08/23 10:28 Last Admin: 10/08/23 10:44 Dose: 80 mg Documented By: LOWELL Vital Signs Vital signs: Vital Signs - 8 hr 10/08/23 10:16 10/08/23 10:40 10/08/23 11:00 Temperature 97.8 F Pulse Rate 123 H 114 H Respiratory Rate 28 H 30 H Blood Pressure 138/84 137/77 Pulse Oximetry 92 99 Oxygen Delivery Method Nasal Cannula Oxygen Flow Rate 2 10/08/23 11:00 10/08/23 11:30 10/08/23 11:30 Temperature Pulse Rate 115 H 116 H Respiratory Rate 26 H 23 Blood Pressure 127/88 Pulse Oximetry 100 100 Oxygen Delivery Method Oxygen Flow Rate 10/08/23 12:00 10/08/23 12:00 10/08/23 12:30 Temperature Pulse Rate 114 H 114 H Respiratory Rate 31 H 28 H Blood Pressure 130/81 Pulse Oximetry 94 93 Oxygen Delivery Method Oxygen Flow Rate 10/08/23 13:23 Temperature Pulse Rate 129 H Respiratory Rate Blood Pressure 122/80 Pulse Oximetry Oxygen Delivery Method Oxygen Flow Rate MDM - GI Bleed Lab Data 10/10/23 07:07 10/10/23 05:14 Labs: Lab Results 10/08/23 10/08/23 10/09/23 Range/Units 10:34 15:44 03:00 WBC 3.9 L (4.5-11.0) X10^3/uL RBC 3.33 L (4.5-5.9) X10^6/uL Hgb 8.6 L 9.3 L (13.5-17.5) g/dL Hct 28.0 L 30.7 L (41-53) % MCV 84.1 (80-100) fL MCH 25.8 L (26-34) PG MCHC 30.7 (30-36) % RDW 19.5 H (11.6-14.8) % Plt Count 119 L (150-400) X10^3/uL Neut % (Auto) 69.2 (50-75) % Lymph % (Auto) 12.9 L (25-40) % Edwards % (Auto) 11.2 (3-14) % Eos % (Auto) 5.3 H (2-4) % Baso % (Auto) 1.4 (0-2) % Neut # (Auto) 2700 (6907-9095) /uL Lymph # (Auto) 500 L (2797-1754) /uL Edwards # (Auto) 400 (0-900) /uL Eos # (Auto) 200 (0-450) /uL Baso # (Auto) 100 (0-100) /uL Total Counted Seg Neutrophils % (38-70) % Lymphocytes % (Manual) (25-45) % Monocytes % (Manual) (2-11) % Neutrophils # (Manual) (7696-9480) /uL RBC Morphology Hypochromasia Anisocytosis Stomatocytes PT 17.6 H (9.4-12.5) SECONDS INR 1.5 H (0.9-1.3) APTT 36 (25.1-36.5) SECONDS Sodium 139 (137-145) mmol/L Potassium 4.1 (3.4-5.1) mmol/L Chloride 101 (98-107) mmol/L Carbon Dioxide 38 H (22-32) mmol/L BUN 24 H (9-20) mg/dL Creatinine 0.76 (0.66-1.25) mg/dL Estimated GFR > 60 (>60) mL/min BUN/Creatinine Ratio 31.6 H (6-22) Glucose 88 (80-110) mg/dL Lactate 1.2 (0.7-2.1) mmol/L Calcium 9.2 (8.4-10.2) mg/dL Magnesium (1.6-2.3) mg/dL Total Bilirubin 0.7 (0.2-1.3) mg/dL AST 30 (17-59) IU/L ALT 20 (<50) IU/L Alkaline Phosphatase 80 (38-126) U/L Troponin I < 0.012 (0.01-0.034) ng/mL NT-Pro-B Natriuret Pep 6230 H (<450) pg/mL Total Protein 6.6 (6.3-8.2) g/dL Albumin 3.6 (3.5-5.0) g/dL Globulin 3.0 (1.7-4.1) g/dL Albumin/Globulin Ratio 1.2 (1.0-2.8) Procalcitonin 0.06 (<0.5) ng/mL Urine Color Yellow Urine Appearance Clear Urine pH 5.5 (4.5-8.0) Ur Specific [place] 1.020 (1.000-1.035) Urine Protein Trace H (Negative) Urine Glucose (UA) Negative (Negative) g/dL Urine Ketones Negative (NEGATIVE) Urine Occult Blood Negative (Negative) Urine Nitrate Negative (Negative) Urine Bilirubin Negative (NEGATIVE) Urine Urobilinogen 0.2 (0.2) E.U./dL Ur Leukocyte Esterase Negative (NEGATIVE) Urine RBC None seen (0-5/HPF) Urine WBC 0-1/hpf (0-5/HPF) Ur Squamous Epith Cells 0-1 /hpf (0-5/HPF) Ur Transition Epith Cell 0-1/hpf (0-5/HPF) Urine Bacteria Occasional (0-1) D (None) Hyaline Casts 1-5/lpf (None) Ur Culture Indicated? Cult not indicated Vol Urine Centrifuged 10ml (spun) Blood Type A Positive Antibody Screen Negative 10/09/23 10/10/23 10/10/23 Range/Units 04:50 05:14 07:07 WBC 4.2 L 5.2 (4.5-11.0) X10^3/uL RBC 3.75 L 3.54 L (4.5-5.9) X10^6/uL Hgb 9.6 L 9.1 L (13.5-17.5) g/dL Hct 32.3 L 30.6 L (41-53) % MCV 86.2 86.5 (80-100) fL MCH 25.7 L 25.8 L (26-34) PG MCHC 29.8 L 29.8 L (30-36) % RDW 19.8 H 19.3 H (11.6-14.8) % Plt Count 131 L 126 L (150-400) X10^3/uL Neut % (Auto) Not Reportable 67.9 (50-75) % Lymph % (Auto) Not Reportable 11.2 L (25-40) % Edwards % (Auto) Not Reportable 18.6 H (3-14) % Eos % (Auto) Not Reportable 1.6 L (2-4) % Baso % (Auto) Not Reportable 0.7 (0-2) % Neut # (Auto) 3600 (6760-1809) /uL Lymph # (Auto) Not Reportable 600 L (2233-1189) /uL Edwards # (Auto) Not Reportable 1000 H (0-900) /uL Eos # (Auto) 100 (0-450) /uL Baso # (Auto) Not Reportable 0 (0-100) /uL Total Counted 100 Seg Neutrophils % 65.0 (38-70) % Lymphocytes % (Manual) 14.0 L (25-45) % Monocytes % (Manual) 21.0 H (2-11) % Neutrophils # (Manual) 2730 L (3872-4241) /uL RBC Morphology See below Hypochromasia 1+ H Anisocytosis 1+ H Stomatocytes 1+ H PT (9.4-12.5) SECONDS INR (0.9-1.3) APTT (25.1-36.5) SECONDS Sodium 140 138 (137-145) mmol/L Potassium 4.7 5.4 H (3.4-5.1) mmol/L Chloride 99 98 (98-107) mmol/L Carbon Dioxide 38 H 37 H (22-32) mmol/L BUN 36 H 51 H (9-20) mg/dL Creatinine 1.14 1.73 H (0.66-1.25) mg/dL Estimated GFR > 60 38 L (>60) mL/min BUN/Creatinine Ratio 31.6 H 29.5 H (6-22) Glucose 82 102 (80-110) mg/dL Lactate (0.7-2.1) mmol/L Calcium 9.1 8.6 (8.4-10.2) mg/dL Magnesium 2.2 2.4 H (1.6-2.3) mg/dL Total Bilirubin 0.6 0.5 (0.2-1.3) mg/dL AST 47 44 (17-59) IU/L ALT 33 30 (<50) IU/L Alkaline Phosphatase 83 70 (38-126) U/L Troponin I (0.01-0.034) ng/mL NT-Pro-B Natriuret Pep (<450) pg/mL Total Protein 6.5 6.4 (6.3-8.2) g/dL Albumin 3.5 3.4 L (3.5-5.0) g/dL Globulin 3.0 3.0 (1.7-4.1) g/dL Albumin/Globulin Ratio 1.2 1.1 (1.0-2.8) Procalcitonin (<0.5) ng/mL Urine Color Urine Appearance Urine pH (4.5-8.0) Ur Specific [place] (1.000-1.035) Urine Protein (Negative) Urine Glucose (UA) (Negative) g/dL Urine Ketones (NEGATIVE) Urine Occult Blood (Negative) Urine Nitrate (Negative) Urine Bilirubin (NEGATIVE) Urine Urobilinogen (0.2) E.U./dL Ur Leukocyte Esterase (NEGATIVE) Urine RBC (0-5/HPF) Urine WBC (0-5/HPF) Ur Squamous Epith Cells (0-5/HPF) Ur Transition Epith Cell (0-5/HPF) Urine Bacteria (None) Hyaline Casts (None) Ur Culture Indicated? Vol Urine Centrifuged Blood Type Antibody Screen Imaging Data CT scan - abdomen/pelvis: Radiologist's Impression: [address] [address] [address] Scan Report Signed Patient: Tramaine Powell MR#: [id number] : 1940 Acct:[id number] Age/Sex: 83 / M Date of Service: 10/08/23 Loc: ED Accession Number: [id number] Procedure: CT chest abd pel wo con Ordering Provider: James Hodge MD PROCEDURE: CT CHEST ABD PEL WO CON INDICATIONS: Sepsis/GI bleed TECHNIQUE: After the administration of oral contrast, 5 mm thick sections acquired from the lung apices to the symphysis pubis. 5 mm thick coronal and sagittal reformats acquired, with additional 7 mm coronal MIP reformats through the lungs. For radiation dose reduction, the following was used: automated exposure control, adjustment of mA and/or kV according to patient size. COMPARISON: [facility], CT, CT CHEST WO CON, 01/15/2023, 23:32. [facility], CT, CT ABDOMEN PELVIS WO CON, 07/02/2023, 2:49. FINDINGS: Image quality: Diagnostic. CHEST: Lower Neck: No enlarged lymph nodes. Thyroid: Right thyroid nodule measuring 1.6 cm. Axillae: No enlarged lymph nodes. Chest Wall: Unremarkable. Bones: Diffusely decreased osseous mineralization. Median sternotomy wires. Multilevel degenerative changes of the spine.. Lungs and Pleura: Small right greater than left pleural effusions with adjacent atelectasis versus consolidation. Linear atelectasis versus scarring involving the bilateral lower lobes, right middle lobe and lingula. Heart: Heart size is enlarged. Severe coronary artery calcifications.. No pericardial effusion. Thoracic Vessels: Main pulmonary artery is dilated measuring 5.5 cm. Atherosclerotic vascular calcifications of the aorta and branching vessels. Mediastinum and Mabel: No enlarged lymph nodes. Esophagus: No wall thickening. No hiatal hernia. ABDOMEN: Liver: No solid mass. Gallbladder: Cholelithiasis. Biliary ducts: No biliary dilation. Pancreas: No ductal dilation. Spleen: Size is within normal limits. Adrenal Glands: No adrenal nodules. Kidneys and Ureters: No hydronephrosis. No solid mass. No complex renal cystic lesion which requires follow up. Stomach and Bowel: Normal colonic caliber, without significant wall thickening. Diverticulosis without definite evidence of acute diverticulitis. Peritoneum: Diffuse mesenteric edema. No free abdominal fluid. No free air. Ventral Wall: No hernia. Anasarca. Abdominal Nodes: No retroperitoneal or mesenteric adenopathy by size criteria. Vessels: Aorta and inferior vena cava are normal in size. IVC is dilated. Atherosclerotic vascular calcifications. PELVIS: Pelvic Organs: Unremarkable. Bladder: Mild diffuse urinary bladder wall thickening Pelvic Nodes: No enlarged lymph nodes. Miscellaneous: No inguinal hernias are seen. Bones: No aggressive osseous abnormality. Diffusely decreased osseous mineralization. Multilevel degenerative changes of the spine. Moderate compression deformities of T12 through L3. T12 and L1 are new compared to prior. IMPRESSION: Small bilateral pleural effusions with adjacent atelectasis versus consolidation. Dilated main pulmonary artery measuring 5.5 cm, suggestive of pulmonary hypertension. Cholelithiasis without evidence of acute cholecystitis. Diverticulosis without evidence of acute diverticulitis. Findings concerning for volume overload including diffuse mesenteric edema, anasarca and pleural effusions. Mild diffuse urinary bladder wall thickening, consider urinalysis to exclude cystitis. Decreased osseous mineralization with new compression deformities of T12 and L1 compared to 07/02/2023. Cardiomegaly and severe coronary artery calcifications. Dilated IVC, may be secondary to elevated right heart pressures. Right thyroid nodule measuring 1.6 cm. Recommend thyroid ultrasound for further evaluation if not previously obtained. Dictated by: Doug Griffin M.D. on 10/08/2023 at 12:28 Approved by: Doug Griffin M.D. on 10/08/2023 at 12:36 MDM Narrative Medical decision making narrative: atient discharged from this hospital a couple of days ago for aspiration pneumonia/hypoxia. Patient is on apixaban for chronic atrial fibrillation. Denies any shortness of breath or chest pain. However at 4:30 a.m. this morning had very large bright red blood GI bleed. No hematemesis. Patient in no distress at this time. Heart rate 98 when at rest. Patient went home with 2 L nasal cannula continuous. Has been requiring the since discharge home. He was also prescribed Augmentin. Complains of diffuse abdominal pain. Patient in no distress. Patient lives with his and daughter. There is no home health care at this time. After history and exam CBC CMP PT INR PTT CT abdomen pelvis morphine Zofran normal saline EKG lactic acid MDM Medical records reviewed: Discharge summary from a few days ago from here Differential considered: Includes but not limited to mesenteric ischemia bowel obstruction GI bleed Lab Test results independently reviewed as above. Pertinent findings: WBC 3.9 hemoglobin 8.6 hematocrit 28 platelet 219 INR 1.5 BUN 24 GFR greater than 60 Independently reviewed EKG atrial fibrillation rate 105 Imaging studies independently reviewed: CT abdomen pelvis no acute finding Consultations: 12:20 p.m.. Spoke with General surgery Dr. Santos, who would like patient admitted hospitalist, who will try EGD today or tomorrow, patient has been NPO since last night 1:[address] Santos at bedside. Has evaluated patient. Would recommend observation with serial CBC at this time. Consider endoscopy tomorrow if changes in laboratory studies 3:30 p.m.. Spoke with hospitalist, dr pedro, who will admit patient Treatments: Morphine Zofran normal saline Re-evaluations: 1:15 p.m.. Patient heart rate has been waxing and waning. At rest 97 however with activity upwards to 130., activity meaning sitting up and start talking. He does agree for evaluation/admission observation, he denies any chest pain shortness of breath or palpitation. Heart rate noted. Patient has not had his home medications yet. Discussion: Appropriate for admission for observation for GI bleed. General surgery has been consulted. Patient agrees for admission. Diagnosis: Acute GI bleed, chronic AFib Discharge Plan Departure Patient Disposition: Admitted as Observation Clinical Impression: Acute GI bleeding Admit Date/Time: 10/10/23 09:50 Admit Provider: Aniket Pedro
[2023-10-08] MEDS: cefTRIAXone 2,000 MG in SODIUM CHLORIDE 0.9% 100 ML 200 MG IV (12:10)
[2023-10-08] MEDS: ONDANSETRON 4 MG/2 ML INJ IV (12:11)
[2023-10-08] MEDS: AMOXICILLIN/CLAV 875/125 MG 1 TAB PO (12:11)
[2023-10-08] MEDS: MORPHINE 2 MG/ML INJ IV (12:11)
[2023-10-08] MEDS: SODIUM CHLORIDE 0.9% 500 ML 1000 ML IV (12:12)
[2023-10-08 12:22] LABS: Lactate (Lactic Acid) 1.2 mmol/L (0.7-2.1)
[2023-10-08 12:40] LABS: Procalcitonin 0.06 ng/mL (<0.5)
--- NOTE | 2023-10-08 13:01 | P.CONS_ITS ---
History of Present Illness Consult details Date Patient Seen: 10/08/23 Time Patient Seen: 13:01 Chief complaint: Rectal Bleeding Narrative: Destin is an 83-year-old man who was discharged from hospital yesterday for pneumonia. This morning at 4:00 a.m. had bloody bowel movement. He complains of mild abdominal pain. A CT scan was performed today which shows some mesenteric edema as well as a picture consistent with volume overload. He has atrial fibrillation and takes apixaban. Meds Home Medications and Allergies Home Medications Medication Instructions Recorded Confirmed Type albuterol sulfate 90 mcg/actuation 2 puff INH PRN PRN Shortness Of 03/22/17 10/03/23 History aerosol inhaler (Proventil HFA) Breath ##0 mesalamine 500 mg capsule,extended 1,000 mg PO BID ##0 03/24/17 10/03/23 History release (Pentasa) ferrous sulfate 325 mg (65 mg 325 mg PO BID 05/18/18 10/03/23 History iron) tablet finasteride 5 mg tablet 5 mg PO DAILY 05/18/18 10/03/23 History simvastatin 40 mg tablet 20 mg PO BEDTIME 12/07/21 10/03/23 History omeprazole 20 mg tablet,delayed 20 mg PO DAILY 04/24/22 10/03/23 History release isosorbide mononitrate 60 mg 30 mg PO DAILY 01/13/23 10/03/23 History tablet,extended release 24 hr tamsulosin 0.4 mg capsule 0.4 mg PO DAILY #90 caps 03/04/23 10/03/23 Rx apixaban 5 mg tablet (Eliquis) 5 mg PO BID #180 tabs 03/20/23 10/03/23 Rx potassium chloride 20 mEq 40 meq (2 x 20 mEq) PO TID #360 04/28/23 10/03/23 Rx tablet,extended release tabs torsemide 100 mg tablet 100 mg PO DAILY PRN Weight Gain 05/01/23 10/03/23 History carvedilol 3.125 mg tablet 3.125 mg PO BID #180 tabs 06/23/23 10/03/23 Rx acetaminophen 500 mg tablet 1,000 mg (2 x 500 mg) PO Q8H #90 08/12/23 10/03/23 Rx (Tylenol Extra Strength) tabs pregabalin 25 mg capsule 25 mg PO TID #90 caps 09/25/23 10/03/23 Rx amoxicillin 875 mg-potassium 1 tab PO Q12H 3 days #6 tabs 10/07/23 Rx clavulanate 125 mg tablet Allergies Allergy/AdvReac Type Severity Reaction Status Date / Time iodine Allergy Severe Blotches Verified 10/08/23 10:28 all over my body ibuprofen Allergy Mild NOT GOOD Verified 10/08/23 10:28 FOR STOMACH BLEEDING Sulfa (Sulfonamide Allergy Mild BURNED A Verified 10/08/23 10:28 Antibiotics) HOLE THRU INTESTINES thallium-201 Allergy Mild BREAKS OUT Verified 10/08/23 10:28 IN BLOTCHES AND ITCHING terazosin Allergy Hypotension Verified 10/08/23 10:28 spironolactone AdvReac Verified 10/08/23 10:28 Exam Vital Signs (past 8 hours): - 10/08/23 10:16 Temperature 97.8 F Pulse Rate 123 H Respiratory Rate 28 H Blood Pressure 138/84 Pulse Oximetry 92 Oxygen Delivery Method Nasal Cannula Oxygen Flow Rate 2 Oxygen Delivery Method Nasal Cannula Oxygen Flow Rate 2 Narrative Exam Narrative: Abdomen is soft, minimally tender palpation in all 4 quadrants No peritoneal findings Objective Labs 10/08/23 10:34 10/08/23 10:34 Labs: Laboratory Results - last 24 hr 10/08/23 10:34 WBC 3.9 L RBC 3.33 L Hgb 8.6 L Hct 28.0 L MCV 84.1 MCH 25.8 L MCHC 30.7 RDW 19.5 H Plt Count 119 L Neut % (Auto) 69.2 Lymph % (Auto) 12.9 L [place] % (Auto) 11.2 Eos % (Auto) 5.3 H Baso % (Auto) 1.4 Neut # (Auto) 2700 Lymph # (Auto) 500 L [place] # (Auto) 400 Eos # (Auto) 200 Baso # (Auto) 100 PT 17.6 H INR 1.5 H APTT 36 Sodium 139 Potassium 4.1 Chloride 101 Carbon Dioxide 38 H BUN 24 H Creatinine 0.76 Estimated GFR > 60 BUN/Creatinine Ratio 31.6 H Glucose 88 Lactate 1.2 Calcium 9.2 Total Bilirubin 0.7 AST 30 ALT 20 Alkaline Phosphatase 80 Total Protein 6.6 Albumin 3.6 Globulin 3.0 Albumin/Globulin Ratio 1.2 Procalcitonin 0.06 Blood Type A Positive Antibody Screen Negative PFSH Medical History Lumbar compression fracture Lumbar spondylosis Anemia Right inguinal hernia History of colonic polyps 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 Mixed hyperlipidemia Essential hypertension Chronic diastolic CHF (congestive heart failure), NYHA class 1 Chronic anticoagulation Chronic atrial fibrillation Vision disorder Fractures Positive PPD Mumps Measles Chicken pox Tinnitus Hearing loss History of urinary incontinence (~2018) Diverticular disease Crohn's disease Myocardial infarction Coronary artery disease Asthma Surgical History Hx of heart artery stent (~1994) Anesthesia H/O mitral valve replacement (~03/2017) Family History Mother Congestive heart failure Father Coronary artery disease Social History household members: spouse Tobacco & Substance Use Smoking Status: Never smoker alcohol intake: former substance use type: does not use Diet and Exercise Type(s) of exercise: walking frequency: daily Assessment & Plan Assessment and plan (1) Hematochezia: Status: Acute Plan 83-year-old man who presents with a single episode of hematochezia this morning. Recommend admission to the hospitalist for observation. If no active ongoing bleeding would recommend outpatient follow up.
[2023-10-08] MEDS: carvediloL 3.125 MG TABLET PO (13:23)
--- NOTE | 2023-10-08 15:25 | PM.CALLCOV.1 ---
Call Coverage Note Note Narrative of Care Provided: 83 M recently discharged for heart failure, possible pneumonia who presented after a small episode of hematochezia. Suspect hemorrhoidal bleed, h/h is stable and actually improved from before. On my exam he is more short of breath than when he left the hospital yesterday, with much worsened edema and his HR is 122 on the monitor. Was given his beta jayashree. EKG shows afib with RVR but no evidence of acute ischemia. Have ordered lasix, proBNP, repeat h/h, and troponin. If cardiac labs are not consistent with NSTEMI can likely admit for acute on chronic heart failure exacerbation and afib with RVR.
[2023-10-08] MEDS: FUROSEMIDE 40 MG/4 ML VIAL IV (15:36)
[2023-10-08 15:51] LABS: Hematocrit 30.7 % (41-53); Hemoglobin 9.3 g/dL (13.5-17.5)
[2023-10-08 16:25] LABS: NT-proBNP (BNP-Adult 18+) 6230 pg/mL (<450); Troponin I < 0.012 ng/mL (0.01-0.034)
--- NOTE | 2023-10-08 17:19 | PM.HP.1 ---
History of Present Illness History of Present Illness Date Patient Seen: 10/08/23 Time Patient Seen: 17:19 Chief complaint: Rectal Bleeding Narrative: Mr. Powell is an 82M with PMH CHFpEF, CAD, afib who presents to the hospital bright red blood per rectum. The patient when I interviewed him in the emergency room seemed much more confused and lethargic compared to his discharge just yesterday. He was tachycardic in the ER, in afib with RVR. He looked uncomfortable breathing and his leg edema was much worse even compared to yesterday. He was unable to give me more information about his presenting bleeding other than he thinks it was a small smear. Right now he feels short of breath and overall just ill. In the emergency room, troponin was negative, proBNP elevated, still tachycardic after getting home coreg. I ordered 40 mg of IV lasix, h/h started to uptrend, and he was admitted for management of acute on chronic heart failure and afib with RVR. 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 Mixed hyperlipidemia Essential hypertension Chronic diastolic CHF (congestive heart failure), NYHA class 1 Chronic anticoagulation Chronic atrial fibrillation Vision disorder Fractures Positive PPD Mumps Measles Chicken pox Tinnitus Hearing loss History of urinary incontinence (~2018) Diverticular disease Crohn's disease Myocardial infarction Coronary artery disease Asthma Surgical History Hx of heart artery stent (~1994) Anesthesia H/O mitral valve replacement (~03/2017) Family History Mother Congestive heart failure Father Coronary artery disease Social History household members: spouse Smoking Status: Never smoker alcohol intake: former substance use type: does not use Type(s) of exercise: walking frequency: daily Meds Home Medications and Allergies Home Medications Medication Instructions Recorded Confirmed Type albuterol sulfate 90 mcg/actuation 2 puff INH PRN PRN Shortness Of 03/22/17 10/08/23 History aerosol inhaler (Proventil HFA) Breath ##0 mesalamine 500 mg capsule,extended 1,000 mg PO BID ##0 03/24/17 10/08/23 History release (Pentasa) ferrous sulfate 325 mg (65 mg 325 mg PO BID 05/18/18 10/08/23 History iron) tablet finasteride 5 mg tablet 5 mg PO DAILY 05/18/18 10/08/23 History simvastatin 40 mg tablet 20 mg PO BEDTIME 12/07/21 10/08/23 History omeprazole 20 mg tablet,delayed 20 mg PO DAILY 04/24/22 10/08/23 History release isosorbide mononitrate 60 mg 30 mg PO DAILY 01/13/23 10/08/23 History tablet,extended release 24 hr tamsulosin 0.4 mg capsule 0.4 mg PO DAILY #90 caps 03/04/23 10/08/23 Rx apixaban 5 mg tablet (Eliquis) 5 mg PO BID #180 tabs 03/20/23 10/08/23 Rx potassium chloride 20 mEq 40 meq (2 x 20 mEq) PO TID #360 04/28/23 10/08/23 Rx tablet,extended release tabs torsemide 100 mg tablet 100 mg PO DAILY PRN Weight Gain 05/01/23 10/08/23 History carvedilol 3.125 mg tablet 3.125 mg PO BID #180 tabs 06/23/23 10/08/23 Rx acetaminophen 500 mg tablet 1,000 mg (2 x 500 mg) PO Q8H #90 08/12/23 10/08/23 Rx (Tylenol Extra Strength) tabs pregabalin 25 mg capsule 25 mg PO TID #90 caps 09/25/23 10/08/23 Rx amoxicillin 875 mg-potassium 1 tab PO Q12H 3 days #6 tabs 10/07/23 10/08/23 Rx clavulanate 125 mg tablet Allergies Allergy/AdvReac Type Severity Reaction Status Date / Time iodine Allergy Severe Blotches Verified 10/08/23 10:28 all over my body ibuprofen Allergy Mild NOT GOOD Verified 10/08/23 10:28 FOR STOMACH BLEEDING Sulfa (Sulfonamide Allergy Mild BURNED A Verified 10/08/23 10:28 Antibiotics) HOLE THRU INTESTINES thallium-201 Allergy Mild BREAKS OUT Verified 10/08/23 10:28 IN BLOTCHES AND ITCHING terazosin Allergy Hypotension Verified 10/08/23 10:28 spironolactone AdvReac Verified 10/08/23 10:28 Review of Systems Review of Systems Narrative: All other systems reviewed with the patient and are negative unless otherwise stated. Exam Vital Signs (past 8 hours): - 10/08/23 10:16 10/08/23 10:40 10/08/23 11:00 Temperature 97.8 F Pulse Rate 123 H 114 H Respiratory Rate 28 H 30 H Blood Pressure 138/84 137/77 Pulse Oximetry 92 99 Oxygen Delivery Method Nasal Cannula Oxygen Flow Rate 2 10/08/23 11:00 10/08/23 11:30 10/08/23 11:30 Temperature Pulse Rate 115 H 116 H Respiratory Rate 26 H 23 Blood Pressure 127/88 Pulse Oximetry 100 100 Oxygen Delivery Method Oxygen Flow Rate 10/08/23 12:00 10/08/23 12:00 10/08/23 12:30 Temperature Pulse Rate 114 H 114 H Respiratory Rate 31 H 28 H Blood Pressure 130/81 Pulse Oximetry 94 93 Oxygen Delivery Method Oxygen Flow Rate 10/08/23 13:23 10/08/23 17:03 Temperature 98.7 F Pulse Rate 129 H 124 H Respiratory Rate 20 Blood Pressure 122/80 121/82 Pulse Oximetry 97 Oxygen Delivery Method Oxygen Flow Rate 1 Oxygen Delivery Method Nasal Cannula Oxygen Flow Rate 1 Narrative Exam Narrative: He is alert and oriented x3. No apparent distress. He is quite weak. Heart is tachycardic, irregularly irregular without murmur. Lungs are clear to auscultation bilaterally though he has very shallow breathing Extremities have 1-2 + pitting edema bilaterally, much worse than yesterday's discharge exam Objective Labs 10/08/23 15:44 10/08/23 10:34 Labs: Laboratory Results - last 24 hr 10/08/23 10/08/23 10:34 15:44 WBC 3.9 L RBC 3.33 L Hgb 8.6 L 9.3 L Hct 28.0 L 30.7 L MCV 84.1 MCH 25.8 L MCHC 30.7 RDW 19.5 H Plt Count 119 L Neut % (Auto) 69.2 Lymph % (Auto) 12.9 L [place] % (Auto) 11.2 Eos % (Auto) 5.3 H Baso % (Auto) 1.4 Neut # (Auto) 2700 Lymph # (Auto) 500 L [place] # (Auto) 400 Eos # (Auto) 200 Baso # (Auto) 100 PT 17.6 H INR 1.5 H APTT 36 Sodium 139 Potassium 4.1 Chloride 101 Carbon Dioxide 38 H BUN 24 H Creatinine 0.76 Estimated GFR > 60 BUN/Creatinine Ratio 31.6 H Glucose 88 Lactate 1.2 Calcium 9.2 Total Bilirubin 0.7 AST 30 ALT 20 Alkaline Phosphatase 80 Troponin I < 0.012 NT-Pro-B Natriuret Pep 6230 H Total Protein 6.6 Albumin 3.6 Globulin 3.0 Albumin/Globulin Ratio 1.2 Procalcitonin 0.06 Blood Type A Positive Antibody Screen Negative Assessment & Plan Assessment & Plan narrative: #Acute on chronic Diastolic heart failure, recent chronic hypoxic respiratory failure, recent aspiration pneumonia - continue diuresis with furosemide 40 mg IV BID - TTE was just recently performed, will not repeat this time. - suspect acute overload possibly from RVR recurrence, will address rate control noted below. - continue augmentin, OFFICE CORRESPONDENT with dysphagia diet from last admit. #Atrial fibrillation with RVR, active, chronic/permanent, on apixaban, present on admission - with not adequate rate control, will change from coreg to metoprolol, I think he can continue home apixaban as h/h is uptrending and history not consistent with a large rectal bleed. #hematochezia - patient described blood as a small smear. Suspect hemorrhoid. Rectal exam shows no fissure or external source. H/h is currently uptrending. Will continue to monitor. Okay to continue apixaban at this time. I do not suspect a crohn's flare at this time either based on presentation. CT abdomen with no evidence for inflammation of his colon, does show bladder wall thickening so will check a CTA. - discussed with surgery, was in agreement with no plans for endoscopy unless bleeding continues. Reconsult as needed. #bladder thickening - will check a UA to rule out infection. #dysphagia - - recent OFFICE CORRESPONDENT eval with aspiration with thin liquids. Ordered same diet as past admission recommended by OFFICE CORRESPONDENT. #CAD, chronic, pulmonary hypertension, present on admission - continue home apixaban, replace home statin with formulary equivalent. #BPH, active, chronic, present on admission - continue home flomax. #Crohn's colitis disease/IBD, chronic, present on admission Continue mesalamine #Hyperlipidemia, mixed, chronic, present on admission continue simvastatin 20 mg #Pancytopenia, chronic Continue ferrous sulfate #Osteoarthritis, with muscle spasms, chronic, present on admission Continue Flexeril #GERD, chronic, present on admission Continue PPI Code: Full, surrogate is patient's spouse DVT: Lovenox daily I have utilized all available immediate resources to obtain, update, or review the patient's current medications. Dispo: observation for now, depending on resolution of his volume overload and RVR he may need inpatient status. Additional history obtained via discussions with the ER provider and general surgeon. These discussions contributed to the creation of the above assessment and plan. I have reviewed patient's presenting documentation, labs, and imaging personally. Surrogate decision maker: Italia Powell DVT/VTE prophylaxis: Apixaban
[2023-10-08] MEDS: METOPROLOL IR 25 MG TABLET PO (20:10)
[2023-10-08] MEDS: METOPROLOL TARTRATE 5 MG/5 ML INJ IV (21:51)
[2023-10-09] VITALS (17 sets, daily range): BP systolic 86–108; BP diastolic 41–65; PULSE 81–120; RESP 14–24; TEMP 36.3–36.9; O2SAT 92–99
[2023-10-09 05:14] LABS: Hematocrit 32.3 % (41-53); Hemoglobin 9.6 g/dL (13.5-17.5); Mean Corpuscular HGB Conc 29.8 % (30-36); Mean Corpuscular Hemoglobin 25.7 PG (26-34); Mean Corpuscular Volume 86.2 fL (80-100); Platelet Count 131 X10^3/uL (150-400); Red Blood Cell Count 3.75 X10^6/uL (4.5-5.9); Red Cell Distribution Width 19.8 % (11.6-14.8); White Blood Cell Count 4.2 X10^3/uL (4.5-11.0)
[2023-10-09 05:19] LABS: Add Manual Diff / Slide Review YES
[2023-10-09 05:21] LABS: Alanine Aminotransferase 33 IU/L (<50); Albumin 3.5 g/dL (3.5-5.0); Albumin Globulin Ratio 1.2 (1.0-2.8); Alkaline Phosphatase 83 U/L (38-126); Aspartate Aminotransferase 47 IU/L (17-59); BUN Creatinine Ratio 31.6 (6-22); Bilirubin Total 0.6 mg/dL (0.2-1.3); Blood Urea Nitrogen 36 mg/dL (9-20); Calcium 9.1 mg/dL (8.4-10.2); Carbon Dioxide 38 mmol/L (22-32); Chloride 99 mmol/L (98-107); Estimated Glomerular Filt Rate > 60 mL/min (>60); Glucose 82 mg/dL (80-110); HEMOLYSIS < 15 (0-50); Magnesium 2.2 mg/dL (1.6-2.3); Potassium 4.7 mmol/L (3.4-5.1); Sodium 140 mmol/L (137-145); Total Protein 6.5 g/dL (6.3-8.2)
[2023-10-09 05:36] LABS: Neutrophils Absolute Manual 2730 /uL (3000-5900); Total Cells Counted 100
[2023-10-09 05:37] LABS: Anisocytosis 1+; Hypochromasia 1+
[2023-10-09 05:38] LABS: Stomatocytes 1+
[2023-10-09 05:47] LABS: Appearance Urine UA CLEAR; Bacteria Urine Occasional (0-1); Bilirubin Urine UA NEGATIVE (NEGATIVE); Color Urine UA YELLOW; Glucose Urine UA NEGATIVE (Negative); Ketones Urine UA NEGATIVE (NEGATIVE); Leukocyte Esterase Urine UA NEGATIVE (NEGATIVE); Nitrite Urine UA NEGATIVE (Negative); Occult Blood Urine UA NEGATIVE (Negative); Protein Urine UA TRACE (Negative); RBC Urine None Seen (0-5/HPF); Transitional Epi Cells Urine 0-1/HPF (0-5/HPF); Urine Volume 10mL (spun); Urobilinogen Urine UA 0.2 E.U./dL (0.2); WBC Urine 0-1/HPF (0-5/HPF); pH Urine UA 5.5 (4.5-8.0)
[2023-10-09 05:48] LABS: Culture Indicated Urine Cult Not Indicated; Hyaline Casts Urine 1-5/LPF; Squamous Epithelial Cell Urine 0-1 /HPF (0-5/HPF)
[2023-10-09] MEDS: APIXABAN 5 MG TABLET PO ×2 (09:21→21:00)
[2023-10-09] MEDS: AMOXICILLIN/CLAV 875/125 MG 1 TAB PO ×2 (09:21→21:00)
[2023-10-09] MEDS: FUROSEMIDE 40 MG/4 ML VIAL IV ×2 (09:21→16:28)
[2023-10-09] MEDS: METOPROLOL ER 25 MG TABLET PO ×2 (09:21→21:02)
[2023-10-09] MEDS: PREGABALIN 25 MG CAPSULE PO ×3 (09:21→21:02)
[2023-10-09] MEDS: FERROUS SULFATE 325 MG TABLET PO ×2 (09:21→21:03)
--- NOTE | 2023-10-09 10:23 | DIET.CONS2 ---
Dietary Inpatient Consultation Note Admission Date: 10/08/2023 15:33 Diet changed to puree (IDDSI 4) and mildly thick liquids (IDDSI 2) based on conversation with DIRECT SERVICE PROFESSIONAL and on unit host reporting pt unable to consume regular palauan toast this morning with preference for pureed foods. Noted barium swallow performed on previous hospital visit (10/06/23) with recc diet being regular (IDDSI 7) and mildly thick liquids (IDDSI 2). Pureed lunch sent up. Will assess tolerance and PO intake before ordering dinner and breakfast. Diet: 10/09/23 Breakfast Dysphagia Diet Diet Modifications: Food Texture: Level 4 - Pureed Liquid Consistency: Level 2 - Mildly Thick Nutrition Percent Meal Consumed 100% 10/09/23 09:32 Electronically Signed by: Sommer Mejia 10/09/23 10:23 Clinical Dietitian [address] [address]
--- NOTE | 2023-10-09 12:16 | CM.DANOTE ---
Addendum entered by STEVE Garcia 10/09/23 14:50: SCHOOL TREASURER attempted to meet with pt in room. Sleeping heavily. Allowed to rest. Original Note: DCP Assessment Note Pt is a 83yo M here as a readmit. Was admitted 10/04/23 until 10/07/23. Pt returned with blood in rectum, admitted 10/08/23. Per H&P, pt was more lethargic and confused on day of this admission compared to recent day of d.c, in afib with RVR. PCP Ira PHILLIPS and Rosalba MComms TV SCHOOL TREASURER reviewed EMR. He is currently here under OBS, per hospitalist in morning rounds he may be here for longer than the OBS window, hopeful to be able to switch to INPT. Per hospitalist, pt has volume overload/fluid in legs. Provider attempting to control HR, anticipates will be here a few days. Per recent DCP Assessment Note/DCP notes, pt was dc'd home with family/dtr/SANJU support and [facility] for RN/PT/Speech as well as new home O2. Per previous CM notes, pt lives in mobile home in [place] with spouse, dtr and SANJU live next door and support pt. Pt uses cane/walker at baseline with grab bars and shower seat in home. Dtr/other family transport pt as needed. Per CM notes, home O2 was delivered previous admission. Dtr transported home last dc. SCHOOL TREASURER spoke with Kirsty at [facility]. confirm would need new referral. with no PT/OT at this time, Kirsty reports this order could just be for RN initially and they can add PT/speech/other disciplines post wildlife biostation research ecologist. DAVID Haines kindly agreed to send new referral. F2f/order needed. Plan: anticipate pt to dc home with family and [facility] to follow. Anticipate family to transport. CM team will continue to follow closely. STEVE Garcia Discharge Planning/Care Management CM Discharge Assessment Start: 10/09/23 12:08 Freq: Status: Active Protocol: Document 10/09/23 12:08 (Rec: 10/09/23 12:15 [id number]) Discharge Planning Assessment Assigned Communication Lecturer STEVE Bruce DPOA/Assigned Designee Name Italia (spouse) and Chasidy ( dtr) Contact Information [phone] Advance Directives? No Advance Directives on File No History Provided By Patient,Medical Record Has Patient been admitted in last 30 Yes days? Comment Pt was here 3.30.24 to 4.2.24 Prior Living Arrangements Mobile home Household Members spouse Comment Dtr and SANJU in mobile home next door Type of transporation used prior to Relies on Others admit Independent with ADL's Yes Is patient alert and oriented? Yes Needs Assistance With Home Chores / Shopping Comment pt recently d/c home with Home O2 DME Already Rented / Owned FWW / Walker,Cane,Oxygen Comment grab bars in shower, shower seat . pt recently d/c home with Home O2 Patient/Family Preference Home with Home Health Comment Anticipate home w/supportive family and spouse Discharge Plan Home Transportation Arrangement Family available to provide transport at d/c Referrals Initiated Home Health Additional Comment Janessa MUÑOZ- original order was for RN/Speech/PT, but no therapy orders this admissision. Anticipate RN ordered and PT/speech to be added by Janessa after RN eval If patient plan is home with home health TBD : Has signed face to face form been completed? SNF/HH Preference Resume Janessa MUÑOZ Whiteboard Updated in Patient Room with No name and ext. # of Communication Lecturer Review Status In Process Please Provide Date Initial DC 10/09/23 Assessment Was Performed Next Review Type Continued Stay Review
--- NOTE | 2023-10-09 17:28 | P.PN_ITS ---
Subjective Subjective Date Patient Seen: 10/09/23 Interval history: 83 M re-admitted with heart failure, afib with RVR. no further BRBPR, h/h uptrending. I discussed with daughter whom did not actually see any blood. Discussed with surgery, scope not recommended. He is overall feeling improved again today. Discussed with his PCP as well, encouraging patient to seek hospice, which he is open to. Would like to continue diuresis for now, hope of improvement, but consider discharge home on hospice. Exam Vital Signs (past 8 hours): - 10/09/23 10:00 10/09/23 12:00 10/09/23 14:00 Temperature 98.2 F Pulse Rate 118 H Respiratory Rate 20 Blood Pressure 108/65 Pulse Oximetry 95 96 95 Oxygen Delivery Method Nasal Cannula Room Air Oxygen Flow Rate 1 1 2 10/09/23 16:00 Temperature 97.8 F Pulse Rate 95 H Respiratory Rate 16 Blood Pressure 95/53 L Pulse Oximetry 96 Oxygen Delivery Method Oxygen Flow Rate 1 Oxygen Delivery Method Room Air Oxygen Flow Rate 1 Narrative Exam Narrative: He is alert and oriented x3. No apparent distress. He is quite weak. Heart with regular rate, irregularly irregular without murmur. Lungs are clear to auscultation bilaterally though he has very shallow breathing Extremities have trace pitting edema bilaterally, much improved from yesterday already. Objective Labs 10/09/23 04:50 10/09/23 04:50 Labs: Laboratory Results - last 24 hr 10/09/23 10/09/23 03:00 04:50 WBC 4.2 L RBC 3.75 L Hgb 9.6 L Hct 32.3 L MCV 86.2 MCH 25.7 L MCHC 29.8 L RDW 19.8 H Plt Count 131 L Neut % (Auto) Not Reportable Lymph % (Auto) Not Reportable [place] % (Auto) Not Reportable Eos % (Auto) Not Reportable Baso % (Auto) Not Reportable Lymph # (Auto) Not Reportable [place] # (Auto) Not Reportable Baso # (Auto) Not Reportable Total Counted 100 Seg Neutrophils % 65.0 Lymphocytes % (Manual) 14.0 L Monocytes % (Manual) 21.0 H Neutrophils # (Manual) 2730 L RBC Morphology See below Hypochromasia 1+ H Anisocytosis 1+ H Stomatocytes 1+ H Sodium 140 Potassium 4.7 Chloride 99 Carbon Dioxide 38 H BUN 36 H Creatinine 1.14 Estimated GFR > 60 BUN/Creatinine Ratio 31.6 H Glucose 82 Calcium 9.1 Magnesium 2.2 Total Bilirubin 0.6 AST 47 ALT 33 Alkaline Phosphatase 83 Total Protein 6.5 Albumin 3.5 Globulin 3.0 Albumin/Globulin Ratio 1.2 Urine Color Yellow Urine Appearance Clear Urine pH 5.5 Ur Specific [place] 1.020 Urine Protein Trace H Urine Glucose (UA) Negative Urine Ketones Negative Urine Occult Blood Negative Urine Nitrate Negative Urine Bilirubin Negative Urine Urobilinogen 0.2 Ur Leukocyte Esterase Negative Urine RBC None seen Urine WBC 0-1/hpf Ur Squamous Epith Cells 0-1 /hpf Ur Transition Epith Cell 0-1/hpf Urine Bacteria Occasional (0-1) D Hyaline Casts 1-5/lpf Ur Culture Indicated? 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 Mixed hyperlipidemia Essential hypertension Chronic diastolic CHF (congestive heart failure), NYHA class 1 Chronic anticoagulation Chronic atrial fibrillation Vision disorder Fractures Positive PPD Mumps Measles Chicken pox Tinnitus Hearing loss History of urinary incontinence (~2018) Diverticular disease Crohn's disease Myocardial infarction Coronary artery disease Asthma Surgical History Hx of heart artery stent (~1994) Anesthesia H/O mitral valve replacement (~03/2017) Family History Mother Congestive heart failure Father Coronary artery disease Social History household members: spouse Smoking Status: Never smoker alcohol intake: former substance use type: does not use Type(s) of exercise: walking frequency: daily Assessment & Plan Assessment & Plan narrative: #Acute on chronic Diastolic heart failure, recent chronic hypoxic respiratory failure, recent aspiration pneumonia - continue diuresis with furosemide 40 mg IV BID - TTE was just recently performed, will not repeat this time. Ef 50-55%. - suspect acute overload possibly from RVR recurrence, will address rate control noted below. - continue augmentin, BRASS SORTER with dysphagia diet from last admit. - discussed with PCP Dr. brandt, hospice would be a great option for this patient upon discharge. Will continue to try and diurese as much as possible prior to discharge given rapidity of re-accumulation. #Atrial fibrillation with RVR, active, chronic/permanent, on apixaban, present on admission - with not adequate rate control, will change from coreg to metoprolol. Currently on IR metoprolol 25 mg TID with improved rate control. BP soft, but will continue for now. - I think he can continue home apixaban as h/h is uptrending and history not consistent with a large rectal bleed. #hematochezia - patient described blood as a small smear. Suspect hemorrhoid if this even happened at all. Daughter did not see any. Rectal exam showed no fissure or external source. H/h is currently uptrending. Will continue to monitor. Okay to continue apixaban at this time. I do not suspect a crohn's flare at this time either based on presentation. CT abdomen with no evidence for inflammation of his colon, does show bladder wall thickening so will check a CTA. - discussed with surgery, was in agreement with no plans for endoscopy unless bleeding continues. Reconsult as needed. #bladder thickening - will check a UA to rule out infection, which was negative 10/08. #dysphagia - - recent BRASS SORTER eval with aspiration with thin liquids. Ordered same diet as past admission recommended by BRASS SORTER. #CAD, chronic, pulmonary hypertension, present on admission - continue home apixaban, replace home statin with formulary equivalent. #BPH, active, chronic, present on admission - continue home flomax. #Crohn's colitis disease/IBD, chronic, present on admission * Continue mesalamine #Hyperlipidemia, mixed, chronic, present on admission * continue simvastatin 20 mg #Pancytopenia, chronic * Continue ferrous sulfate #Osteoarthritis, with muscle spasms, chronic, present on admission * Continue Flexeril #GERD, chronic, present on admission * Continue PPI Code: Full, surrogate is patient's spouse DVT: Lovenox daily I have utilized all available immediate resources to obtain, update, or review the patient's current medications. Dispo: observation for now, depending on resolution of his volume overload and RVR he may need inpatient status. Additional history obtained via discussions general surgeon and patient's daughter. These discussions contributed to the creation of the above assessment and plan. I have reviewed patient's presenting documentation, labs, and imaging personally. Surrogate decision maker: Italia Medeiros DVT/VTE prophylaxis: Apixaban
[2023-10-09] MEDS: ATORVASTATIN 20 MG TABLET 10 MG PO (21:01)
[2023-10-10] VITALS (17 sets, daily range): BP systolic 81–89; BP diastolic 45–59; PULSE 54–106; RESP 16–20; TEMP 36.2–37.1; O2SAT 94–99
[2023-10-10 06:09] LABS: Alanine Aminotransferase 30 IU/L (<50); Albumin 3.4 g/dL (3.5-5.0); Albumin Globulin Ratio 1.1 (1.0-2.8); Alkaline Phosphatase 70 U/L (38-126); Aspartate Aminotransferase 44 IU/L (17-59); BUN Creatinine Ratio 29.5 (6-22); Bilirubin Total 0.5 mg/dL (0.2-1.3); Blood Urea Nitrogen 51 mg/dL (9-20); Calcium 8.6 mg/dL (8.4-10.2); Carbon Dioxide 37 mmol/L (22-32); Chloride 98 mmol/L (98-107); Estimated Glomerular Filt Rate 38 mL/min (>60); Glucose 102 mg/dL (80-110); HEMOLYSIS 38 (0-50); Magnesium 2.4 mg/dL (1.6-2.3); Sodium 138 mmol/L (137-145); Total Protein 6.4 g/dL (6.3-8.2)
[2023-10-10 06:14] LABS: Potassium 5.4 mmol/L (3.4-5.1)
[2023-10-10 07:59] LABS: Add Manual Diff / Slide Review NO; Basophils Absolute Auto 0 /uL (0-100); Basophils Percent Auto 0.7 % (0-2); Eosinophils Absolute Auto 100 /uL (0-450); Eosinophils Percent Auto 1.6 % (2-4); Hematocrit 30.6 % (41-53); Hemoglobin 9.1 g/dL (13.5-17.5); Lymphocytes Absolute Auto 600 /uL (1100-4500); Lymphocytes Percent Auto 11.2 % (25-40); Mean Corpuscular HGB Conc 29.8 % (30-36); Mean Corpuscular Hemoglobin 25.8 PG (26-34); Mean Corpuscular Volume 86.5 fL (80-100); Monocytes Absolute Auto 1000 /uL (0-900); Monocytes Percent Auto 18.6 % (3-14); Neutrophils Absolute Auto 3600 /uL (1500-7000); Neutrophils Percent Auto 67.9 % (50-75); Platelet Count 126 X10^3/uL (150-400); Red Blood Cell Count 3.54 X10^6/uL (4.5-5.9); Red Cell Distribution Width 19.3 % (11.6-14.8); White Blood Cell Count 5.2 X10^3/uL (4.5-11.0)
[2023-10-10] MEDS: METOPROLOL ER 25 MG TABLET PO ×2 (08:41→21:38)
[2023-10-10] MEDS: PREGABALIN 25 MG CAPSULE PO ×3 (08:41→21:37)
[2023-10-10] MEDS: AMOXICILLIN/CLAV 875/125 MG 1 TAB PO (08:41)
[2023-10-10] MEDS: FINASTERIDE 5 MG TABLET PO (08:41)
[2023-10-10] MEDS: APIXABAN 5 MG TABLET PO ×2 (08:41→21:37)
[2023-10-10] MEDS: FERROUS SULFATE 325 MG TABLET PO ×2 (08:41→21:38)
[2023-10-10] MEDS: TAMSULOSIN 0.4 MG CAPSULE PO (09:49)
--- NOTE | 2023-10-10 12:38 | P.PN_ITS ---
Subjective Subjective Interval history: He remains hypoxic and would like to get out of here and go home. He is very weak. He has had continued deterioration since recent discharge. A recent solvents study indicate significant aspiration. CT scan revealed abdominal wall edema consistent with mesenteric ischemia. He is diastolic heart failure and went diuresed to any extent begins to developed MIKAYLA while still remaining hypoxic. Previous doctors have recommended hospice in his primary care doctor agrees. The family is also in agreement today. Exam Vital Signs (past 8 hours): - 10/10/23 06:00 10/10/23 08:00 10/10/23 08:41 Temperature 98.7 F Pulse Rate 78 106 H Respiratory Rate 16 Blood Pressure 84/58 L 89/45 L Pulse Oximetry 95 95 Oxygen Delivery Method Room Air Oxygen Flow Rate 0 0 10/10/23 10:00 10/10/23 12:15 Temperature 98.2 F Pulse Rate 92 H Respiratory Rate Blood Pressure 81/49 L Pulse Oximetry 96 98 Oxygen Delivery Method Nasal Cannula Oxygen Flow Rate 2 Oxygen Delivery Method Nasal Cannula Oxygen Flow Rate 2 Narrative Exam Narrative: No acute distress, 2 L of oxygen. Lungs with diminished breath sounds. Heart is regular without murmur. Abdomen is nondistended nontender. Legs with minimal edema. Objective Labs 10/10/23 07:07 10/10/23 05:14 Labs: Laboratory Results - last 24 hr 10/10/23 10/10/23 05:14 07:07 WBC 5.2 RBC 3.54 L Hgb 9.1 L Hct 30.6 L MCV 86.5 MCH 25.8 L MCHC 29.8 L RDW 19.3 H Plt Count 126 L Neut % (Auto) 67.9 Lymph % (Auto) 11.2 L [place] % (Auto) 18.6 H Eos % (Auto) 1.6 L Baso % (Auto) 0.7 Neut # (Auto) 3600 Lymph # (Auto) 600 L [place] # (Auto) 1000 H Eos # (Auto) 100 Baso # (Auto) 0 Sodium 138 Potassium 5.4 H Chloride 98 Carbon Dioxide 37 H BUN 51 H Creatinine 1.73 H Estimated GFR 38 L BUN/Creatinine Ratio 29.5 H Glucose 102 Calcium 8.6 Magnesium 2.4 H Total Bilirubin 0.5 AST 44 ALT 30 Alkaline Phosphatase 70 Total Protein 6.4 Albumin 3.4 L Globulin 3.0 Albumin/Globulin Ratio 1.1 PFSH Medical History Lumbar compression fracture Lumbar spondylosis Anemia Right inguinal hernia History of colonic polyps 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 Mixed hyperlipidemia Essential hypertension Chronic diastolic CHF (congestive heart failure), NYHA class 1 Chronic anticoagulation Chronic atrial fibrillation Vision disorder Fractures Positive PPD Mumps Measles Chicken pox Tinnitus Hearing loss History of urinary incontinence (~2018) Diverticular disease Crohn's disease Myocardial infarction Coronary artery disease Asthma Surgical History Hx of heart artery stent (~1994) Anesthesia H/O mitral valve replacement (~03/2017) Family History Mother Congestive heart failure Father Coronary artery disease Social History household members: spouse Smoking Status: Never smoker alcohol intake: former substance use type: does not use Type(s) of exercise: walking frequency: daily Assessment & Plan Assessment & Plan narrative: #Acute on chronic Diastolic heart failure, recent chronic hypoxic respiratory failure, recent aspiration pneumonia - continue diuresis with furosemide 40 mg IV BID -minimal improvement and remains hypoxic. #acute kidney injury, new and active. - likely relates to tenuous fluid status and diuresis. #Atrial fibrillation with RVR, active, chronic/permanent, on apixaban, present on admission. Better rate control. - with not adequate rate control, will change from coreg to metoprolol. Currently on IR metoprolol 25 mg TID with improved rate control. BP soft, but will continue for now. - I think he can continue home apixaban as h/h is uptrending and history not consistent with a large rectal bleed. #hematochezia, relatively stable. - patient described blood as a small smear. Suspect hemorrhoid if this even happened at all. Daughter did not see any. Rectal exam showed no fissure or external source. H/h is currently uptrending. Will continue to monitor. Okay to continue apixaban at this time. I do not suspect a crohn's flare at this time either based on presentation. CT abdomen with no evidence for inflammation of his colon, does show bladder wall thickening so will check a CTA. - discussed with surgery, was in agreement with no plans for endoscopy unless bleeding continues. Reconsult as needed. #bladder thickening - will check a UA to rule out infection, which was negative 10/08. #dysphagia - - recent DIRECTOR LEARNING eval with aspiration with thin liquids. Ordered same diet as past admission recommended by DIRECTOR LEARNING. #CAD, chronic, pulmonary hypertension, present on admission - continue home apixaban, replace home statin with formulary equivalent. #BPH, active, chronic, present on admission - continue home flomax. #Crohn's colitis disease/IBD, chronic, present on admission * Continue mesalamine#Hyperlipidemia, mixed, chronic, present on admission * continue simvastatin 20 mg#Pancytopenia, chronic * Continue ferrous sulfate#Osteoarthritis, with muscle spasms, chronic, present on admission * Continue Flexeril#GERD, chronic, present on admission * Continue PPI Code: Full, surrogate is patient's spouse DVT: Lovenox daily I have utilized all available immediate resources to obtain, update, or review the patient's current medications. Dispo: Supports inpatient status, patient requires a 2nd midnight of medically necessary care. The patient appears to have limited ability to improve medically and we will begin hospice at home planning. I have met with the social media marketer. I have discussed this with the family and they appear to be in agreement. The patient is not tolerating diuresis without adverse effects to his renal function. He remains hypoxic. He was extremely weak.
--- NOTE | 2023-10-10 13:36 | CM.DPC ---
Addendum entered by STEVE Martinez 10/10/23 15:43: ADD: Return call from [facility] and Info Visit completed with family and they signed consents and DME being ordered for delivery tomorrow 10/10 and their RN can do SOC on Friday10/13/23 at 1600. AYAD updated MD. BF Original Note: DCP Hospice Planning Per MD, pt's renal function decreased and still requiring diuresis for CHF and labs not improving and pt seems to have declined in health since last week. MD had lengthy discussion bedside with pt, spouse, and granddtr and in agreement of likely home with Hospice and family in agreement with Hospice referral. AYAD called [facility] and spoke to Soniya and provided new referral and faxed clinicals to review and she confirms that she can complete Info Visit with family today 10/09 and their next availability is 10/12 and DME could be ordered after Info Visit with family. No family currently bedside and AYAD attempted to call spouse at home and no answer. AYAD called Dtr Chasidy and she is now bedside and SW and RN met with Dtr and updated on the discussion between MD and spouse/granddtr a half hour ago. Dtr tearful but states she has prepared herself for the eventual need for Hospice. Dtr confirms pt's goal is to be home with family and not in a facility. AYAD explained Hospice and provided [facility] brochure and Dtr confirms for Info Visit to be called to her cell phone and she will be with spouse and other family. AYAD updated Soniya at [facility] and she will call Dtclaire Umaña to schedule Info Visit for today. Plan: AYAD to follow closely with [facility] to confirm family agreeable to sign consents and that DME was ordered for plan of pt d/c home with [facility] to open Fri10/13/23. Pt likely may be able to d/c via family POV unless rapidly deteriorates prior to discharge. STEVE Martinez
[2023-10-10] MEDS: AMOXICILLIN/CLAV 500/125 MG 1 TAB PO (21:37)
[2023-10-10] MEDS: ATORVASTATIN 20 MG TABLET 10 MG PO (21:38)
[2023-10-11] VITALS (13 sets, daily range): BP systolic 84–92; BP diastolic 47–54; PULSE 66–78; RESP 16–22; TEMP 36.2–36.5; O2SAT 94–100
--- NOTE | 2023-10-11 07:35 | P.PN_ITS ---
Subjective Subjective Interval history: Narrative not obtainable today, he is quite somnolent. He has had a lot of persistent coughing this morning. Exam Vital Signs (past 8 hours): - 10/11/23 02:00 10/11/23 04:05 10/11/23 06:00 Temperature 97.1 F L Pulse Rate 78 Respiratory Rate 20 Blood Pressure 88/53 L Pulse Oximetry 94 95 94 Oxygen Delivery Method Room Air Room Air Oxygen Flow Rate 1 1 1 Fraction of Inspired Oxygen 24 SaO2/FiO2 Ratio 391 Oxygen Delivery Method Room Air Oxygen Flow Rate 1 Narrative Exam Narrative: Somnolent, NAD, slight increase in respiratory rate. Lungs are clear with increased rate. Heart is regular. Abdomen is nondistended. Legs with 1 to 2+ edema. Skin is free of rash or lesions. 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 Mixed hyperlipidemia Essential hypertension Chronic diastolic CHF (congestive heart failure), NYHA class 1 Chronic anticoagulation Chronic atrial fibrillation Vision disorder Fractures Positive PPD Mumps Measles Chicken pox Tinnitus Hearing loss History of urinary incontinence (~2018) Diverticular disease Crohn's disease Myocardial infarction Coronary artery disease Asthma Surgical History Hx of heart artery stent (~1994) Anesthesia H/O mitral valve replacement (~03/2017) Family History Mother Congestive heart failure Father Coronary artery disease Social History household members: spouse Smoking Status: Never smoker alcohol intake: former substance use type: does not use Type(s) of exercise: walking frequency: daily Assessment & Plan Assessment & Plan narrative: 1. Acute on chronic diastolic heart failure (recent chronic hypoxic respiratory failure, recent aspiration pneumonia), present on admission and active. -minimal improvement and remains hypoxic. 2. Acute kidney injury, new and active. 3. Atrial fibrillation with RVR, present on admission and improved. 4. Hematochezia, present on admission and active. Relatively stable. 5. Bladder thickening, present on admission and active. 6. Dysphagia, present on admission and active. - recent ASSEMBLER GOLD FRAME eval with aspiration with thin liquids. Ordered same diet as past admission recommended by ASSEMBLER GOLD FRAME. 7. CAD, present on admission and active. 8. Chronic pulmonary hypertension, chronic, pulmonary hypertension 9. BPH, chronic, pulmonary hypertension - continue home flomax. 10. Crohn's colitis disease, chronic, pulmonary hypertension DVT: Lovenox daily Dispo: Home with hospice, can open on Friday. The patient appears to have limited ability to improve medically and we will begin hospice at home planning. I have met with the psychologist social. I have discussed this with the family and they appear to be in agreement. The patient is not tolerating diuresis without adverse effects to his renal function. He remains hypoxic. PLAN: At this point we will likely be stopping all oral medications due his to his severe aspiration and persistent coughing.
--- NOTE | 2023-10-11 11:17 | PC.NURSE ---
Pt arousable, does take meals but has trouble with Water leading to a fair amount of coughing. Pt repositioned several times, will d/c tele during bath time to minimize disruptions.
[2023-10-11] MEDS: AMOXICILLIN/CLAV 500/125 MG 1 TAB PO (20:25)
[2023-10-11] MEDS: PREGABALIN 25 MG CAPSULE PO (20:25)
[2023-10-11] MEDS: ATORVASTATIN 20 MG TABLET 10 MG PO (20:25)
[2023-10-11] MEDS: FERROUS SULFATE 325 MG TABLET PO (20:25)
[2023-10-11] MEDS: APIXABAN 5 MG TABLET PO (20:25)
[2023-10-12] VITALS (13 sets, daily range): BP systolic 79–93; BP diastolic 39–55; PULSE 51–98; RESP 12–20; TEMP 36.2–37.2; O2SAT 93–100
[2023-10-12] MEDS: ACETAMINOPHEN 325 MG TABLET 650 MG PO ×2 (05:16→21:00)
--- NOTE | 2023-10-12 08:14 | PM.PN.1 ---
Subjective Subjective Interval history: The patient had a lot of respiratory distress overnight and Ativan was added. This morning he states he is breathing better and denies any pain. Exam Vital Signs (past 8 hours): - 10/12/23 02:00 10/12/23 04:00 10/12/23 06:00 Temperature 97.6 F Pulse Rate 51 L Respiratory Rate 16 Blood Pressure 91/50 L Pulse Oximetry 95 93 94 Oxygen Delivery Method Nasal Cannula Nasal Cannula Oxygen Flow Rate 5 4 4 Fraction of Inspired Oxygen 24 SaO2/FiO2 Ratio 408 Oxygen Delivery Method Nasal Cannula Oxygen Flow Rate 4 Narrative Exam Narrative: He is extremely cachectic. No acute distress. He is able to talk without difficulty. Lungs are clear and, anterior [place] with normal effort. Heart is regular, no murmur. Extremities are notable for 1+ edema. Abdomen is nondistended. 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 Mixed hyperlipidemia Essential hypertension Chronic diastolic CHF (congestive heart failure), NYHA class 1 Chronic anticoagulation Chronic atrial fibrillation Vision disorder Fractures Positive PPD Mumps Measles Chicken pox Tinnitus Hearing loss History of urinary incontinence (~2018) Diverticular disease Crohn's disease Myocardial infarction Coronary artery disease Asthma Surgical History Hx of heart artery stent (~1994) Anesthesia H/O mitral valve replacement (~03/2017) Family History Mother Congestive heart failure Father Coronary artery disease Social History household members: spouse Smoking Status: Never smoker alcohol intake: former substance use type: does not use Type(s) of exercise: walking frequency: daily Assessment & Plan Assessment & Plan narrative: 1. Acute on chronic diastolic heart failure (recent chronic hypoxic respiratory failure, recent aspiration pneumonia), present on admission and active. -minimal improvement and remains hypoxic. 2. Acute kidney injury, new and active. -persistent kidney injury with any attempts at diuresis. 3. Atrial fibrillation with RVR, present on admission and improved. 4. Hematochezia, present on admission and active. Relatively stable. -this is mostly resolved. 5. Bladder thickening, present on admission and active. 6. Dysphagia, present on admission and active. - recent SENIOR DATA ARCHITECT eval with aspiration with thin liquids. Ordered same diet as past admission recommended by SENIOR DATA ARCHITECT. 7. CAD, present on admission and active. 8. Chronic pulmonary hypertension, chronic, pulmonary hypertension 9. BPH, chronic, pulmonary hypertension - continue home flomax. 10. Crohn's colitis disease, chronic, pulmonary hypertension The patient has had a persistent decline. He had persistent hypoxia despite attempts at diuresis and worsened MIKAYLA. The patient also has extreme aspiration of any liquids which makes oral medications difficult. Ultimately, conversations with the family led to the conclusion at home with hospice would be the desired goal and that further efforts at trying to improve his medical conditions was futile. PLAN: Hospice equipment is delivered on FridayOctober 11, hospice can open on FridayOctober 12 and he will be discharged home on October 12 hospice care. Date of discharge 10/12.
--- NOTE | 2023-10-12 15:54 | CM.DPNOTE ---
DCP Cont Discussion in room with Dr Uribe and patient's daughter Chasidy, and her spouse; family agreeable to patient's return home w/[facility]. Placed call to [facility] and bank reconciliator RN states this referral was not placed on the schedule, so cannot be confirmed until Friday Plan: Discharge home w/family via BLS with [facility] nurse recruiter anticipated Friday although could not be confirmed by [facility] today CM team following along for coordination Friday AM MARYA
[2023-10-12] MEDS: PREGABALIN 25 MG CAPSULE PO (21:02)
[2023-10-12] MEDS: ATORVASTATIN 20 MG TABLET 10 MG PO (21:02)
[2023-10-12] MEDS: AMOXICILLIN/CLAV 500/125 MG 1 TAB PO (21:02)
[2023-10-12] MEDS: FERROUS SULFATE 325 MG TABLET PO (21:02)
[2023-10-12] MEDS: APIXABAN 5 MG TABLET PO (21:02)
[2023-10-13] VITALS (7 sets, daily range): BP systolic 87–88; BP diastolic 46–53; PULSE 71–72; RESP 18–20; TEMP 36.1–36.5; O2SAT 93–98
--- NOTE | 2023-10-13 00:24 | PC.NURSE ---
Addendum entered by Uyen Devine R.N. 10/13/23 01:21: Patient is currently resting in bed with eyes closed, breathing unlabored, O2 saturation 98% on 6.5 L oximask Original Note: business office specialist: Patient is alert to voice, accurately stated name/birthday. Was able to take PO meds crushed w/ pudding, tolerated well. Lung sounds are clear/diminished. 6.5L was on oximask, O2 saturation in high 90's. Patient currently appears to be , removed oximask & refusing intervention from staff. RT at bedside, placed patient blow-by oxygen, O2 saturation 92%. Notified MD Mejia of behavioral change. Plan of care ongoing.
[2023-10-13] MEDS: AMOXICILLIN/CLAV 500/125 MG 1 TAB PO (08:22)
[2023-10-13] MEDS: PREGABALIN 25 MG CAPSULE PO (08:23)
[2023-10-13] MEDS: FINASTERIDE 5 MG TABLET PO (08:23)
[2023-10-13] MEDS: TAMSULOSIN 0.4 MG CAPSULE PO (08:23)
[2023-10-13] MEDS: FERROUS SULFATE 325 MG TABLET PO (08:23)
[2023-10-13] MEDS: APIXABAN 5 MG TABLET PO (08:23)
[2023-10-13] MEDS: ACETAMINOPHEN 325 MG TABLET 650 MG PO (08:29)
--- NOTE | 2023-10-13 08:54 | CM.DPC ---
DCP Discharge Home with Hospice Per MD, pt can discharge home today via BLS for comfort care/Hospice at home. AYAD called [facility] and spoke to Soniya and confirmed DME was delivered to the home this weekend and their RN can still do SOC at 1600 today in the home. AYAD called [facility] and scheduled 1400 transport to home today due to acute heart failure, 2PA with mechanical lift, hypoxic with oximask, orthostatic. BLS form completed and attached supporting documentation from RN note and MD note. AYAD called pt's Dtr Chasidy and updated on above and she confirms they remain agreeable and pt d/c to home the preference. AYAD explained that no guarantee of full insurance coverage for BLS transport although it will be submitted to insurance but could be an out of pocket expense. Dtr acknowledged understanding and in agreement that BLS transport needed. No steps to enter the home, AYAD confirmed home address, and ramp to get in and family will be present when pt arrives. AYAD updated MD, RN, SALES ENABLEMENT CONSULTANT, farebox repairer. AYAD faxed d/c packet to [facility] to review. Plan: Patient to d/c home today via [facility] at 1400 and [facility] to open today at 1600. STEVE Martinez
--- NOTE | 2023-10-13 09:21 | P.DS_ITS ---
History of Present Illness History of Present Illness Chief complaint: Rectal Bleeding Narrative: Mr. Powell is an 82M with PMH CHFpEF, CAD, afib who presents to the hospital bright red blood per rectum. The patient when I interviewed him in the emergency room seemed much more confused and lethargic compared to his discharge just yesterday. He was tachycardic in the ER, in afib with RVR. He looked uncomfortable breathing and his leg edema was much worse even compared to yesterday. He was unable to give me more information about his presenting bleeding other than he thinks it was a small smear. Right now he feels short of breath and overall just ill. In the emergency room, troponin was negative, proBNP elevated, still tachycardic after getting home coreg. I ordered 40 mg of IV lasix, h/h started to uptrend, and he was admitted for management of acute on chronic heart failure and afib with RVR. Discharge Providers Provider Date of admission: 10/10/23 09:50 Discharge Date: 10/13/23 Primary care physician: Barrera Roth MD Discharge provider: Luis Manuel Adam DO Summary Hospital Course Discharge Diagnosis: 1. Acute on chronic diastolic heart failure (recent chronic hypoxic respiratory failure, recent aspiration pneumonia), present on admission and active. -minimal improvement and remains hypoxic. 2. Acute kidney injury, new and active. -persistent kidney injury with any attempts at diuresis. 3. Atrial fibrillation with RVR, present on admission and improved. 4. Hematochezia, present on admission and active. Relatively stable. -this is mostly resolved. 5. Bladder thickening, present on admission and active. 6. Dysphagia, present on admission and active. - recent TECHNICAL DELIVERY MANAGER eval with aspiration with thin liquids. Ordered same diet as past admission recommended by TECHNICAL DELIVERY MANAGER. 7. CAD, present on admission and active. 8. Chronic pulmonary hypertension, chronic, pulmonary hypertension 9. BPH, chronic, pulmonary hypertension - continue home flomax. 10. Crohn's colitis disease, chronic, pulmonary hypertension The patient has had a persistent decline. He had persistent hypoxia despite attempts at diuresis and worsened MIKAYLA. The patient also has extreme aspiration of any liquids which makes oral medications difficult. Ultimately, conversations with the family led to the conclusion at home with hospice would be the desired goal and that further efforts at trying to improve his medical conditions was futile. Hospital Course: Admitted with acute dyspnea, dysphagia and MIKAYLA. Did not improve with diuresis and aspiration was severe of any liquids. Family decided to transition to comfort care and hospice so patient discharged home to hospice on 10/13/23. Exam Vital Signs (past 8 hours): - 10/13/23 03:00 10/13/23 04:00 10/13/23 08:00 Temperature 96.9 F L 97.7 F Pulse Rate 71 72 Respiratory Rate 20 18 Blood Pressure 88/53 L 87/46 L Pulse Oximetry 95 98 94 Oxygen Delivery Method Oximask Oxygen Flow Rate 6.5 6.5 Fraction of Inspired Oxygen 10/13/23 08:24 10/13/23 08:47 Temperature Pulse Rate Respiratory Rate Blood Pressure 87/46 L Pulse Oximetry 96 Oxygen Delivery Method Oximask Oxygen Flow Rate 6 Fraction of Inspired Oxygen 44 Fraction of Inspired Oxygen 44 SaO2/FiO2 Ratio 218 Oxygen Delivery Method Oximask Oxygen Flow Rate 6 Narrative Exam Narrative: He is extremely cachectic. No acute distress. He is able to talk without difficulty. Lungs are clear and, anterior villela with normal effort. Heart is regular, no murmur. Extremities are notable for 1+ edema. Abdomen is nondistended. Objective Labs 10/10/23 07:07 10/10/23 05:14 [facility] Medical History Lumbar compression fracture Lumbar spondylosis Anemia Right inguinal hernia History of colonic polyps 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 Mixed hyperlipidemia Essential hypertension Chronic diastolic CHF (congestive heart failure), NYHA class 1 Chronic anticoagulation Chronic atrial fibrillation Vision disorder Fractures Positive PPD Mumps Measles Chicken pox Tinnitus Hearing loss History of urinary incontinence (~2018) Diverticular disease Crohn's disease Myocardial infarction Coronary artery disease Asthma Surgical History Hx of heart artery stent (~1994) Anesthesia H/O mitral valve replacement (~03/2017) Family History Mother Congestive heart failure Father Coronary artery disease Social History household members: spouse Smoking Status: Never smoker alcohol intake: former substance use type: does not use Type(s) of exercise: walking frequency: daily Discharge Plan Discharge Plan Patient Disposition: Hospice - Home Discharge orders & Medications Prescriptions: Continued albuterol sulfate [Proventil HFA] 90 MCG/PUFF HFA aerosol inhaler 2 puff INH PRN PRN (Reason: Shortness Of Breath) Qty: 0 Patient Comments: no longer taking mesalamine [Pentasa] 500 MG capsule, extended release 1,000 mg PO BID Qty: 0 Patient Comments: not sure if he is taking tamsulosin 0.4 mg capsule 0.4 mg PO DAILY Qty: 90 3RF potassium chloride 20 mEq tablet extended release 40 meq PO TID Qty: 360 1RF simvastatin 40 mg tablet 20 mg PO BEDTIME omeprazole 20 mg tablet,delayed release (DR/EC) 20 mg PO DAILY Patient Comments: pt does not recognize this med Eliquis 5 mg tablet 5 mg PO BID Qty: 180 3RF Rx Instructions: pt does not recognize acetaminophen [Tylenol Extra Strength] 500 mg tablet 1,000 mg PO Q8H Qty: 90 0RF ferrous sulfate 325 mg (65 mg iron) Tablet 325 mg PO BID Rx Instructions: no longer taking this finasteride 5 mg Tablet 5 mg PO DAILY Patient Comments: not sure if he is taking torsemide 100 mg Tablet 100 mg PO DAILY PRN (Reason: Weight Gain) amoxicillin-pot clavulanate 875-125 mg tablet 1 tab PO Q12H 3 Days Qty: 6 0RF pregabalin 25 mg capsule 25 mg PO TID Qty: 90 1RF Rx Instructions: 1 PO QHS x3 days If tolerated, 1 PO BID x3 days If tolerated, 1 PO TID Discontinued carvedilol 3.125 mg tablet 3.125 mg PO BID Qty: 180 3RF Rx Instructions: must administer with a meal/food isosorbide mononitrate 60 mg Tablet Extended Release 24 Hr 30 mg PO DAILY Rx Instructions: unsure if he is taking Follow up/Referrals: Barrera Roth MD [Primary Care Provider] - Visit Report/Discharge Packet Stand Alone Forms: Patient Portal/API, Stroke Signs & Symptoms Discharge Data Primary Care Provider: Barrera Roth V
[2023-10-13] MEDS: MORPHINE 10 MG/0.5 ML ORAL SYRINGE PO (10:37)
--- NOTE | 2023-10-13 15:53 | PC.NURSE ---
Discharge Note Patient A&O to self, VS within patients normal, no current complaints of pain or discomfort. Patient and family agreeable to discharge plan. PIV discontinued. Patient assisted to dress and pack all belongings by staff. Report given to EMS, all questions/concerns addressed. Patient taken down via stretcher by EMS.
--- NOTE | 2023-10-17 05:11 | PC.NURSE ---
On 10/08/23 At Hour of sleep, however patient was not alert and oriented, pulled all evening meds and attempted to give to patient but he was unable to take spit out documented on Sep not given and why. most importantly i pulled Pregablin 25 mg and it was mixed in the pudding, no waste documnted because it was mixed and i couldnt show it to anyone.
== END 2023-10-13 14:30 | disposition hospice, home (50) | DRG 291 ==
LOC: ED 13:12 → AC 15:34
PROVIDERS: Admitting Provider Internal Medicine; Emergency Provider Emergency Medicine; PCP Internal Medicine; Referring Provider Emergency Medicine; Visit Provider Internal Medicine
DX: I11.0 Hypertensive heart disease with heart failure (principal); I50.33 Acute on chronic diastolic (congestive) heart failure; N17.9 Acute kidney failure, unspecified; I48.21 Permanent atrial fibrillation; K50.90 Crohn's disease, unspecified, without complications; D61.818 Other pancytopenia; K92.1 Melena; R13.10 Dysphagia, unspecified; I25.10 Atherosclerotic heart disease of native coronary artery without angina pectoris; I27.20 Pulmonary hypertension, unspecified; N40.0 Benign prostatic hyperplasia without lower urinary tract symptoms; E78.2 Mixed hyperlipidemia; M19.91 Primary osteoarthritis, unspecified site; K21.9 Gastro-esophageal reflux disease without esophagitis; N32.89 Other specified disorders of bladder; R06.03 Acute respiratory distress; Z79.01 Long term (current) use of anticoagulants
CPT/HCPCS: 36415; 71250; 74176; 80053; 81001; 83605; 83735; 83880; 84145; 84484; 85007; 85014; 85018; 85025; 85610; 85730; 86850; 86900; 86901; 93005; 94760; 96365; 96375; 99285; G0378; C9113; J0696; J1940; J2270; J2405